=== PATIENT | female | born 1980 | race Two or more races ===

== ENCOUNTER 2023-02-09 22:14 | Observation (INO) | payer OTHER, SELFPAY ==
[2023-02-09 22:18] VITALS: BP 167/95; PULSE 79; RESP 16; TEMP 37.1; O2SAT 99; BMI 32.6
--- NOTE | 2023-02-09 23:30 | ED_ITS ---
HPI - Abdominal Pain General Chief Complaint: Abdominal Pain Stated Complaint: LOWER ABDOMINAL PAIN Time Seen by Provider: 02/09/23 23:25 Source: patient Source comment: patient Mode of arrival: walk-in Limitations: no limitations History of Present Illness HPI narrative: RLQ abd pain that started about a week ago and has slowly worsened. No radiation of pain. No activities make the pain better or worse including eating, urinating, having a BM and moving the torso. No urinary symptoms.She had BTL. Still has her GB and appendix. No history of kidney stones. Never had this pain before. Related Data Allergies Allergy/AdvReac Type Severity Reaction Status Date / Time acetaminophen [From Percocet] Allergy Intermediate Verified 02/09/23 23:37 oxycodone [From Percocet] Allergy Intermediate Verified 02/09/23 23:37 PFSH PFSH Social History Smoking status: Former smoker Exam Narrative Exam Narrative: Nurses notes and vital signs reviewed and patient is not hypoxic. afebrile General: Well-appearing and in no apparent distress. Skin: Warm, dry, no pallor noted. No rash to abdomen. Head: Normocephalic, atraumatic. Eye: Pupils are equal, round and EOMI. No scleral icterus. Cardiovascular: Regular Rate and Rhythm without murmur, gallop or rub. Respiratory: No accessory muscle use or respiratory distress. Lungs are clear to auscultation, no wheezing, rales or rhonchi Back: No CVA tenderness Musculoskeletal: normal ROM GI: Abdomen is soft, non-distended. Normal bowel sounds. No masses appre ciated. Focal tenderness to palpation. No rebound, guarding, or rigidity noted. negative Rovsing's. Neurological: A&O x4. No cranial nerve dysfunction observed. No truncal ataxia. Moves all extremities. Sensation intact. Psychiatric: Cooperative and interactive. Normal mood and affect. Constitutional Vital Signs - 24 hr 02/09/23 22:18 Temperature 98.8 F Pulse Rate [Monitor] 79 Respiratory Rate 16 Blood Pressure [Right Arm] 167/95 H Pulse Oximetry 99 Oxygen Delivery Method Room Air Course Vital Signs Vital signs: Vital Signs Temperature 98.8 F 02/09/23 22:18 Pulse Rate 79 02/09/23 22:18 Respiratory Rate 16 02/09/23 22:18 Blood Pressure 167/95 H 02/09/23 22:18 Pulse Oximetry 99 02/09/23 22:18 Oxygen Delivery Method Room Air 02/09/23 22:18 Temperature 98.8 F 02/09/23 22:18 Pulse Rate 79 02/09/23 22:18 Respiratory Rate 16 02/09/23 22:18 Blood Pressure 167/95 H 02/09/23 22:18 Pulse Oximetry 99 02/09/23 22:18 Oxygen Delivery Method Room Air 02/09/23 22:18 MDM - Abdominal Pain MDM Narrative Medical decision making narrative: Labs including urine, cbc and cmp were unremarkable. Radiologist called me about the patient abdominal and pelvic CT with concern for possible left ovarian torsion, telling me that the left ovary sits posterior and could be causing the patient's suprapubic and RLQ pain. recommended US pelvis so US tech called in from home. Result = 6cm septated left ovarian cyst with poor flow consistent with early torsion or intermittent torsion. Case discussed with Dr Cool who asked that the patient be admitted to the hospitalist service and he will be a technical sales consultant on the case. I spoke with Dr Garcia and the patient will be admitted to Dr Carmona's service. Lab Data Attestation: I reviewed the patient's lab results. Labs: Lab Results 02/09/23 02/09/23 Range/Units 00:00 00:15 WBC 7.2 (4.0-11.0) 10^3/uL RBC 4.82 (4.20-5.40) 10^6/uL Hgb 13.6 (12.0-16.0) g/dL Hct 41.3 (36.0-48.0) % MCV 85.7 (81.0-99.0) fL MCH 28.2 (26.7-34.0) pg MCHC 32.9 (29.9-35.2) g/dL RDW 13.9 (11.0-15.0) % Plt Count 272 (150-450) 10^3/uL MPV 11.6 (9.5-13.5) fL Neut % (Auto) 60.5 (43.0-75.0) % Lymph % (Auto) 29.2 (20.5-60.0) % [place] % (Auto) 8.5 (1.7-12.0) % Eos % (Auto) 1.1 (0.9-7.0) % Baso % (Auto) 0.4 (0.2-2.0) % Neut # (Auto) 4.3 (1.4-6.5) 10^3/uL Lymph # (Auto) 2.1 (1.2-3.8) 10^3/uL [place] # (Auto) 0.6 (0.3-0.8) 10^3/uL Eos # (Auto) 0.1 (0.0-0.7) 10^3/uL Baso # (Auto) 0.0 (0.0-0.1) 10^3/uL Abs Immat Gran (auto) 0.02 (0.00-0.03) 10^3/uL Imm/Tot Granulo (auto) 0.3 (0.0-0.5) % Sodium 137 (136-145) mmol/L Potassium 3.5 (3.5-5.1) mmol/L Chloride 100 (98-107) mmol/L Carbon Dioxide 27.6 (21.0-32.0) mmol/L Anion Gap 12.9 BUN 15.0 (7.0-18.0) mg/dL Creatinine 0.69 (0.55-1.02) mg/dL Est GFR ( Amer) >60 (>=60) Est GFR (Non-Af Amer) >60 (>=60) BUN/Creatinine Ratio 21.7 Glucose 95 (74-106) mg/dL Lactate 0.7 (0.4-2.0) mmol/L Calcium 9.6 (8.5-10.1) mg/dL Total Bilirubin 0.5 (0.2-1.0) mg/dL AST 15 (15-37) U/L ALT 22 (14-59) U/L Alkaline Phosphatase 57 (46-116) U/L Total Protein 8.6 H (6.4-8.2) g/dL Albumin 4.1 (3.4-5.0) g/dL Globulin 4.5 g/dL Albumin/Globulin Ratio 0.9 Lipase 289.0 (73.0-393.0) U/L Urine Color Lt. yellow (YELLOW) Urine Clarity Clear (CLEAR) Urine pH 7.0 (5.0-9.0) Ur Specific [place] 1.010 (1.005-1.025) Urine Protein Negative (NEG/TRACE) mg/dL Urine Glucose (UA) Negative (NEGATIVE) mg/dL Urine Ketones Negative (NEGATIVE) mg/dL Urine Occult Blood Negative (NEGATIVE) Urine Nitrite Negative (NEGATIVE) Urine Bilirubin Negative (NEGATIVE) Urine Urobilinogen 0.2 (0.2-1.0) EU/dL Ur Leukocyte Esterase Negative (NEGATIVE) Imaging Data ct abd/pelvis: Radiologist's impression: Patient Name: APRYL DOWNS MRN: [id number] date: 1980 Sex: F Assigned Patient Location: ER Current Patient Location: ER Accession/Order Number: [id number] Exam Date: 02/09/2023 23:48 Report Date: 02/10/2023 01:07 At the request of: DOMINGO MILLER Procedure: CT abdomen pelvis w con EXAM: CT SCAN OF THE ABDOMEN AND PELVIS WITH IV CONTRAST DATE OF EXAM: 02/09/2023 11:48 PM EDT HISTORY: right lower quadrant abd pain in a 42-year-old female COMPARISON: None. TECHNIQUE: CT examination of the abdomen and pelvis was performed following the intravenous administration of IV contrast. CT dose lowering techniques were used, to include: automated exposure control, adjustment for patient size, and/or use of iterative reconstruction. Contrast: 100 mL Omnipaque 300 FINDINGS: Single Stroke Preformer/Lines and Tubes: None Lower Chest: Normal Free Air: None. Liver: Normal Gallbladder: Normal Common Bile Duct: Normal Pancreas: Normal Spleen: Normal Adrenal Glands: Right: Normal Left: Normal Kidneys: Right Kidney: Normal. Right Ureter: Normal. Left Kidney: Normal. Left Ureter: Normal. GI Tract: Stomach: The stomach is distended with gastric contents. Small Bowel: Fluid-filled small bowel measures within normal limits Appendix: Normal on axial image 102 of series 3 Large Bowel: Normal Mesentery/Peritoneum: Normal Vasculature: Aorta: Normal. IVC: Normal. Elmer Vein: Normal. Retroperitoneum: Normal Abdominal/Pelvic Wall: Normal Bladder: Normal Reproductive: The uterus demonstrates a heterogeneous parenchyma with a fluid attenuating region which is seen posterior and superior to the uterus measuring 5.4 x 5.7 cm with some septations, most likely the left ovary. Right ovary appears to measure within normal limits allowing for volume averaging from unopacified bowel. Musculoskeletal: Osseous structures are within normal limits for age. Free Fluid: None. IMPRESSION: 1. Complicated left ovarian cyst such that acute ovarian pathology cannot be excluded. Transvaginal ultrasound with spectral Doppler to evaluate blood flow is recommended. 2. Normal appendix. 3. Fluid filled small bowel. Please correlate for viral enteritis. 4. Scattered diverticulosis. 5. Decompressed gallbladder. Please correlate with nothing by mouth status. Critical results were NOTIFIED by TELEPHONE BY Dr. Homa Lagunas MD to Dr. Miller At 02/10/2023 12:48 AM EDT. Electronically authenticated by: HOMA LAGUNAS Date: 02/10/2023 01:07 Discharge Plan Discharge Chief Complaint: Abdominal Pain Clinical Impression: Torsion of left ovary, Abdominal pain, Complex cyst of left ovary Patient Disposition: Admitted As Inpatient Time of Disposition Decision: 01:19 Referrals: Samanta Cota [Primary Care Provider] - 1 week
[2023-02-10] VITALS (12 sets, daily range): BP systolic 95–147; BP diastolic 57–99; PULSE 79–92; RESP 16–24; TEMP 36.1–36.7; O2SAT 93–99; BMI 32.5
[2023-02-10 00:06] LABS: Bilirubin Urine NEGATIVE (NEGATIVE); Blood Urine NEGATIVE (NEGATIVE); Clarity Urine CLEAR (CLEAR); Color Urine LT. YELLOW (YELLOW); Glucose Urine UA NEGATIVE (NEGATIVE); Ketones Urine NEGATIVE (NEGATIVE); Leukocyte Esterase Urine NEGATIVE (NEGATIVE); Nitrite Urine NEGATIVE (NEGATIVE); Protein Urine NEGATIVE (NEG/TRACE); Urobilinogen Urine 0.2 EU/dL (0.2-1.0)
[2023-02-10 00:08] LABS: Urine Microscopic Indicated NO
[2023-02-10] MEDS: 0.9 % SODIUM CHLORIDE 1,000 ML 999 ML IV (00:14)
[2023-02-10] MEDS: ONDANSETRON PF 4 MG/2 ML VIAL IV ×3 (00:15→05:59)
[2023-02-10] MEDS: HYDROMORPHONE HCL 1 MG/ML CARTRIDGE IVP (00:15)
--- NOTE | 2023-02-10 01:07 | US_ITS ---
[address] [address] Patient Name: APRYL DOWNS MRN: [id number] date: 1980 Sex: F Assigned Patient Location: ER Current Patient Location: .MAIN Accession/Order Number: [id number] Exam Date: 02/10/2023 01:30 Report Date: 02/10/2023 04:10 At the request of: DOMINGO MILLER Procedure: US pelvis transvaginal EXAM: US pelvis transvaginal HISTORY: ovarian torsion seen on CT, lower abdominal pain COMPARISON: CT abdomen/pelvis dated 02/09/2023. TECHNIQUE: Grayscale and color Doppler transvaginal sonographic imaging of the pelvis performed in longitudinal and transverse planes. FINDINGS: Uterus: 9.0 x 6.7 x 5.0 cm Right ovary: 3.0 x 2.3 x 1.8 cm Left ovary: 6.0 x 4.6 x 3.1 cm Uterus: The uterus is normal size and position. The endometrial stripe is normal thickness measuring 1 cm in AP dimension. There is a 0.8 cm nabothian cyst. The myometrial parenchymal echogenicity is normal. Right ovary: Normal size with normal parenchymal echogenicity. There is no right ovarian mass. The color and the spectral Doppler analysis of the right ovary are normal. There is no evidence of right ovarian torsion. The right adnexal region is unremarkable. Left ovary: The left ovary is asymmetrically larger than the right containing a 5.8 x 2.8 x 4.3 cm complex cyst containing septations and peripheral echogenicity. The surrounding left ovarian parenchymal echogenicity is normal. The color and the spectral Doppler analysis of the left ovary are normal. There is no evidence of left ovarian torsion. The left adnexa region is unremarkable. Cul-de-sac: There is no free fluid within the cul-de-sac. IMPRESSION: There is no ovarian torsion. There is a 5.8 x 2.8 x 4.3 cm complex left ovarian cyst containing septations and peripheral echogenicity. A follow-up pelvic ultrasound examination in 6-8 weeks is recommended to confirm complete resolution. Electronically authenticated by: NIURAK WEBB Date: 02/10/2023 04:10
[2023-02-10 01:08] LABS: Alanine Aminotransferase 22 U/L (14-59); Albumin Globulin Ratio 0.9; Albumin Level 4.1 g/dL (3.4-5.0); Alkaline Phosphatase 57 U/L (46-116); Anion Gap 12.9; Aspartate Amino Transferase 15 U/L (15-37); BUN Creatinine Ratio 21.7; Bilirubin Total 0.5 mg/dL (0.2-1.0); Calcium 9.6 mg/dL (8.5-10.1); Carbon Dioxide 27.6 mmol/L (21.0-32.0); Chloride 100 mmol/L (98-107); Estimated GFR (African America >60 (>=60); Estimated GFR (Non-African Ame >60 (>=60); Globulin 4.5 g/dL; Glucose 95 mg/dL (74-106); Potassium 3.5 mmol/L (3.5-5.1); Sodium 137 mmol/L (136-145); Total Protein 8.6 g/dL (6.4-8.2)
[2023-02-10 01:12] LABS: Lactate/Lactic Acid 0.7 mmol/L (0.4-2.0)
[2023-02-10 01:42] LABS: Basophils Percent Auto 0.4 % (0.2-2.0); Eosinophils Absolute Auto 0.1 10^3/uL (0.0-0.7); Eosinophils Percent Auto 1.1 % (0.9-7.0); Hematocrit 41.3 % (36.0-48.0); Hemoglobin 13.6 g/dL (12.0-16.0); Immature Granulocytes Abs Auto 0.02 10^3/uL (0.00-0.03); Immature Granulocytes Pct Auto 0.3 % (0.0-0.5); Lymphocytes Absolute Auto 2.1 10^3/uL (1.2-3.8); Lymphocytes Percent Auto 29.2 % (20.5-60.0); Mean Corpuscular HGB Conc 32.9 g/dL (29.9-35.2); Mean Corpuscular Hemoglobin 28.2 pg (26.7-34.0); Mean Corpuscular Volume 85.7 fL (81.0-99.0); Mean Platelet Volume 11.6 fL (9.5-13.5); Monocytes Absolute Auto 0.6 10^3/uL (0.3-0.8); Monocytes Percent Auto 8.5 % (1.7-12.0); Neutrophils Absolute Auto 4.3 10^3/uL (1.4-6.5); Neutrophils Percent Auto 60.5 % (43.0-75.0); Platelet Count 272 10^3/uL (150-450); Red Blood Count 4.82 10^6/uL (4.20-5.40); Red Cell Distribution Width 13.9 % (11.0-15.0); White Blood Count 7.2 10^3/uL (4.0-11.0)
[2023-02-10] MEDS: MEPERIDINE HCL/PF 50 MG/ML VIAL IV (02:02)
[2023-02-10 03:47] LABS: INR 0.96; Prothrombin Time 10.2 sec (9.0-11.6)
--- NOTE | 2023-02-10 05:20 | W.PM.TELEPN ---
Progress Note: Subjective Subjective Interval history: pt is a 42F with h/o HTN, DM II, and hypothyroid presenting with c/o abd pain. reports sudden onset of RIGHT lower quadrant pain yesterday with pressure sensation. She has had mild sx for one week, but more exacerbated over past 24hrs. No change with food. Reporets nausea and diarrhea intermittently for one week. Had approx 5 bouts of diarrhea yest, nonbloody. In ED, virtals with bp 167/95 o/w afebrile. abs bengign incl normal wbc count and neg UA. CT abd 6cm left ovarian cyst concern for poss ovarian torsion. ED d/w radiologist who rec TV US, noted for 6cm LEFT ovarian cyst with poor flow c/w early torsion or intermittent torsion. ED d/w Sanitary Landfill Operator Dr Cool who req admit to hospitlt service for pain control with plan to likely take to OR in am. Exam Narrative Exam Narrative: gen aox 3 nad cvs s1s2 rrr lungs ctab no wheezes abd sodt ttp blq r>l, with guarding extr no cce neuro aox4, sensation intact from Constitutional Vital Signs - 24 hr 02/09/23 22:18 02/10/23 03:46 02/10/23 04:14 Temperature 98.8 F 98.0 F Pulse Rate 79 84 Pulse Rate [Monitor] 79 Respiratory Rate 16 16 16 Blood Pressure 147/99 H Blood Pressure [Right Arm] 167/95 H 127/82 H Pulse Oximetry 99 98 99 Oxygen Delivery Method Room Air Room Air 02/10/23 04:14 02/10/23 04:29 Temperature 98 F Pulse Rate 84 Pulse Rate [Monitor] Respiratory Rate 16 Blood Pressure Blood Pressure [Right Arm] 127/82 H Pulse Oximetry 99 Oxygen Delivery Method Room Air Room Air Progress Note: Objective Labs Labs: Short CBC 02/09/23 Range/Units 00:15 WBC 7.2 (4.0-11.0) 10^3/uL Hgb 13.6 (12.0-16.0) g/dL Hct 41.3 (36.0-48.0) % Plt Count 272 (150-450) 10^3/uL BMP 02/09/23 00:15 Sodium 137 Potassium 3.5 Chloride 100 Carbon Dioxide 27.6 BUN 15.0 Creatinine 0.69 Glucose 95 Calcium 9.6 Liver Function 02/09/23 Range/Units 00:15 Total Bilirubin 0.5 (0.2-1.0) mg/dL AST 15 (15-37) U/L ALT 22 (14-59) U/L Alkaline Phosphatase 57 (46-116) U/L Albumin 4.1 (3.4-5.0) g/dL Urine 02/09/23 Range/Units 00:00 Urine Color Lt. yellow (YELLOW) Urine Clarity Clear (CLEAR) Urine pH 7.0 (5.0-9.0) Ur Specific [place] 1.010 (1.005-1.025) Urine Protein Negative (NEG/TRACE) mg/dL Urine Glucose (UA) Negative (NEGATIVE) mg/dL Progress Note: A&P Assessment and Plan (1) Torsion of left ovary: (2) Abdominal pain: (3) Complex cyst of left ovary: (4) Diabetes: (5) HTN (hypertension): Plan abd pain ,suspect ovarian torsion diarrhea htn hypothytoid dm ii plan: admit m/s npo, ivf inr chk preop prn michael, dilaudid meeting facilitator c/s dr cool, plans to take to OR in am hold bp meds for now. resume postop ssi dvt p/x scd fu;l code Telemedicine Attestation Telemedicine Attestation I conducted this encounter from [MD] via secure live, [id number] video conference with the patient, CHARGE TEST-CHARGES located at [facility] with [beth]. Prior to the interview, the risks and benefits of telemedicine were discussed with the patient and verbal consent was obtained.
[2023-02-10] MEDS: HYDROMORPHONE HCL 0.5 MG/0.5 ML SYRINGE IV (05:58)
[2023-02-10] MEDS: 0.9 % SODIUM CHLORIDE 1,000 ML 100 ML IV (06:01)
[2023-02-10 07:12] LABS: Glucometer 90 mg/dL (74-106)
[2023-02-10] MEDS: LACTATED RINGER'S SOLUTION 1,000 ML 100 ML IV (07:37)
[2023-02-10 07:40] LABS: HCG Quantitative <1 mIU/mL
[2023-02-10] MEDS: SCOPOLAMINE 1 EACH PATCH.TD.3 1 PATCH TD (08:05)
--- NOTE | 2023-02-10 09:44 | PC.NURSE ---
LOPEZ DISCONTINUED AT ENDO OF CASE, 50ML CLEAR YELLOW URINE NOTED
--- NOTE | 2023-02-10 10:22 | PC.NURSE ---
peripad dry; 3 dressings to abdomen intact with scant drainage on mid and left dressings; right dressing dry; areas marked
--- NOTE | 2023-02-10 10:31 | PC.NURSE ---
rating left abdominal pain a 6 on pain scale; no facial grimacing noted; pt instructed that no IV pain meds will not be administered at this time due to low blood pressure; this discussed with anesthesia and no further orders; no increase in drainage from initial assessment peripad dry; pt. returns to sleep
[2023-02-10] MEDS: LEVOTHYROXINE SODIUM 75 MCG TABLET 37.5 MCG PO (10:55)
[2023-02-10] MEDS: LEVOTHYROXINE SODIUM 100 MCG TABLET PO (10:55)
[2023-02-10] MEDS: HYDROCODONE/ACETAMINOPHEN 5-325 MG TABLET 1 TAB PO (10:55)
[2023-02-10] MEDS: LIDOCAINE HCL IM (10:56)
[2023-02-10] MEDS: CEFTRIAXONE 250 MG IM (10:56)
--- NOTE | 2023-02-10 11:00 | PC.NURSE ---
no change in assessment of wound drainage from initially; peripad dry
--- NOTE | 2023-02-10 11:06 | PC.NURSE ---
no change in incisional drainage from initial assessment; peripad dry
[2023-02-10 11:09] LABS: Glucometer 115 mg/dL (74-106)
--- NOTE | 2023-02-10 11:10 | PC.NURSE ---
peripad dry; no change in assessment of incisional sites
--- NOTE | 2023-02-10 11:24 | PC.NURSE ---
Left ovarian cyst fluid for cytology sent to lab
--- NOTE | 2023-02-10 12:51 | CM.NOTE ---
Rounds made with Dr. Carmona, possible discharge later today. No discharge needs identified.
--- NOTE | 2023-02-10 15:43 | PM.HP ---
H&P: HPI History of Present Illness Chief complaint: LOWER ABDOMINAL PAIN Narrative: HPI and hospital course: 42 y o female presents with intermittent lower abdominal pain that was going on for about one week, but had gotten worse, severe and more or less persistent for past 1-2 days with associated nausea, vomiting. No relationship to food, change in bowel habits or any urinary complaints. She was evaluated in ED and her w/u was c/w ovarian torsion for which she was taken to OR earlier morning and was seen by me after diagnostic laparoscopy and cystectomy. Mild post op pain. Tolerating oral diet. Stable for discharge. F/u with PCP and OBGYN as outpatient. Educated on signs and symptoms that should prompt ED visit and evaluation. Admission Diagnosis Ovarian torsion HTN Hypothyroidism T2 DM Discharge Diagnosis as above Discharge status: stable Review of Systems ROS Status of ROS 10 or more systems reviewed and unremarkable except as noted in history and below [facility] Medical History (Updated 02/10/23 @ 18:30 by Shaikh Mathew MD) Family History (Updated 02/10/23 @ 04:43 by Jazmine Doyle) Mother Family history of COPD (chronic obstructive pulmonary disease) Family history of diabetes mellitus Family history of hypertension Sister Family history of cancer Family history of diabetes mellitus Father Family history of cancer Social History (Updated 02/10/23 @ 04:44 by Jazmine Doyle) Within the past year, how often did you have a drink containing alcohol: never Within the past year, how often did you have six or more drinks on one occasion: never Score interpretation: A score less than 3 is consistent with normal alcohol consumption. 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 Known occupational exposures/hazards: No Highest level of school completed/degree received: GED or equivalent Do you want help with school or training: No Are you now , , , , never or living with a partner: In a typical week, how many times do you talk on the telephone with family, friends, or neighbors: 3 or more times per week How often do you get together with friends or relatives: 3 or more times per week How often do you attend christian or latter day services: never Do you belong to any clubs or organizations such as christian groups unions, fraternal or athletic groups, or school groups: no Total score: 1 Score interpretation: A score of less than or equal to 1 indicates the most socially isolated. Little interest or pleasure in doing things: not at all Feeling down, depressed, or hopeless: not at all Feel stressed/tense/nervous/anxious/difficulty sleeping: not at all Due to disability, difficulty making decisions: No Do you think of yourself as: straight/heterosexual Gender Identity: female Meds Home Medications and Allergies Home Medications Medication Instructions Recorded Confirmed Type amitriptyline 50 mg tablet 50 mg PO .QHS 02/10/23 02/10/23 History levothyroxine 137 mcg tablet 137 mcg PO .aday 02/10/23 02/10/23 History lisinopril 20 mg tablet 20 mg PO QDAY 02/10/23 02/10/23 History metformin 500 mg tablet 750 mg PO QDAY 02/10/23 02/10/23 History tirzepatide 2.5 mg/0.5 mL 7.5 mg subcut QWEEK 02/10/23 02/10/23 History subcutaneous pen injector (Emmanuel) Allergies Allergy/AdvReac Type Severity Reaction Status Date / Time acetaminophen [From Percocet] Allergy Intermediate Verified 02/09/23 23:37 oxycodone [From Percocet] Allergy Intermediate Verified 02/09/23 23:37 Exam Constitutional Vital Signs - 24 hr 02/09/23 22:18 02/10/23 03:46 02/10/23 04:14 Temperature 98.8 F 98.0 F Pulse Rate 79 84 Pulse Rate [Monitor] 79 Respiratory Rate 16 16 16 Blood Pressure 147/99 H Blood Pressure [Right Arm] 167/95 H 127/82 H Pulse Oximetry 99 98 99 Oxygen Delivery Method Room Air Room Air Fraction of Inspired Oxygen 02/10/23 04:14 02/10/23 04:29 02/10/23 10:01 Temperature 98 F 96.9 F L Pulse Rate 84 87 Pulse Rate [Monitor] Respiratory Rate 16 16 Blood Pressure 110/73 Blood Pressure [Right Arm] 127/82 H Pulse Oximetry 99 94 L Oxygen Delivery Method Room Air Room Air Room Air Fraction of Inspired Oxygen 02/10/23 10:06 02/10/23 10:11 02/10/23 10:16 Temperature Pulse Rate 83 85 81 Pulse Rate [Monitor] Respiratory Rate 18 24 22 Blood Pressure 117/65 95/57 L 101/59 L Blood Pressure [Right Arm] Pulse Oximetry 94 L 93 L 96 Oxygen Delivery Method Room Air Fraction of Inspired Oxygen 02/10/23 10:21 02/10/23 10:31 02/10/23 10:40 Temperature Pulse Rate 81 80 84 Pulse Rate [Monitor] Respiratory Rate 18 18 20 Blood Pressure 97/79 100/75 108/60 Blood Pressure [Right Arm] Pulse Oximetry 95 95 96 Oxygen Delivery Method Room Air Room Air Room Air Fraction of Inspired Oxygen 02/10/23 11:03 02/10/23 11:22 02/10/23 14:14 Temperature 98.0 F 97.3 F L Pulse Rate 84 92 H Pulse Rate [Monitor] Respiratory Rate 16 16 Blood Pressure Blood Pressure [Right Arm] 112/73 127/80 H Pulse Oximetry 95 95 Oxygen Delivery Method Room Air Room Air Room Air Fraction of Inspired Oxygen 95 Common normals: no apparent distress and well nourished Exam limitations: altered mental status General appearance: cooperative and comfortable Eye Common normals: conjunctivae normal and no scleral icterus Respiratory Common normals: normal respiratory effort, no use of accessory muscles and clear to auscultation bilaterally Cardio Common normals: no JVD, regular rhythm, S1 normal heart sound and S2 normal heart sound GI Common normals: no hepatosplenomegaly Palpation: soft and tender (mild lower abdominal tenderness) Extremity Common normals: normal to inspection and full ROM Neuro Common normals: oriented x3, CN's II-XII intact bilaterally, moves all extremities, no focal motor deficits and no sensory deficits noted Results Labs Labs: Short CBC 02/09/23 Range/Units 00:15 WBC 7.2 (4.0-11.0) 10^3/uL Hgb 13.6 (12.0-16.0) g/dL Hct 41.3 (36.0-48.0) % Plt Count 272 (150-450) 10^3/uL BMP 02/09/23 00:15 Sodium 137 Potassium 3.5 Chloride 100 Carbon Dioxide 27.6 BUN 15.0 Creatinine 0.69 Glucose 95 Calcium 9.6 Liver Function 02/09/23 Range/Units 00:15 Total Bilirubin 0.5 (0.2-1.0) mg/dL AST 15 (15-37) U/L ALT 22 (14-59) U/L Alkaline Phosphatase 57 (46-116) U/L Albumin 4.1 (3.4-5.0) g/dL Urine 02/09/23 Range/Units 00:00 Urine Color Lt. yellow (YELLOW) Urine Clarity Clear (CLEAR) Urine pH 7.0 (5.0-9.0) Ur Specific Orestes 1.010 (1.005-1.025) Urine Protein Negative (NEG/TRACE) mg/dL Urine Glucose (UA) Negative (NEGATIVE) mg/dL Assessment and Plan Assessment and Plan (1) Torsion of left ovary: Assessment and Plan: s/p cystectomy. OR report is not available at this time for me to review what was actually performed. Tolerating oral diet. Stable for d/c. Outpatient f/u with PCP and OBGYN (2) Abdominal pain: Assessment and Plan: from ovarian torsion. s/p cystectomy. Mild post op pain but tolerating diet. Stable for d/c Qualifiers: Abdominal location: lower abdomen, unspecified Qualified Code(s): R10.30 - Lower abdominal pain, unspecified (3) Complex cyst of left ovary: Assessment and Plan: Resulting in torsion. Pathology sent and pending. F/u with OBGYN (4) Diabetes: Assessment and Plan: C/w home meds. On mounjaro and metformin Qualifiers: Diabetes mellitus type: type 2 Diabetes mellitus termination clerk insulin use: without correction use Diabetes mellitus complication status: without complication Qualified Code(s): E11.9 - Type 2 diabetes mellitus without complications (5) HTN (hypertension): Assessment and Plan: Resume home meds as before. Outpaitent f/u (6) Hypothyroidism: Assessment and Plan: c/w levothyorxine
--- NOTE | 2023-02-14 10:07 | CM.DCFOLLOWU ---
Person spoke with:patient How are you feeling? concerns with stitches How is your pain? possible discomfort, but connection via phone was hard to understand patient Did you understand your discharge instructions? yes Do you have any questions about your discharge instructions? no Were you given any prescriptions at discharge? no Were you able to get your prescriptions filled? Do you understand how to take your medications as ordered? yes Do you have any questions about your follow up appointment and do you plan to keep your follow up appointment? No questions, follow up apt scheduled on February [address] Cool Is there anything else that you would like to discuss? Attempted to talk with pt about her pain and concern for stitches coming out, but there was a bad connection. Advised to call Dr. Cool's office, or if concerned come to the ER. Questions/Comments/Concerns/Other:
--- NOTE | 2023-03-24 | DS_ITS ---
DISCHARGE DATE: ??03/24/2023 PRIMARY DIAGNOSES: 1.? Pelvic pain. 2.? Ovarian cyst. PROCEDURE:? Diagnostic laparoscopy with left ovarian cystotomy. HOSPITAL COURSE:? As expected.? Please see chart for full details.? LABORATORY DATA:? Please see chart. COMPLICATIONS:? None. DISCHARGE CONDITION:? Stable. CONSULTATION:? Anesthesia. DISCHARGE INSTRUCTIONS: 1.? Diet:? Regular. 2.? Medications: a.? Percocet 5/325 one to two p.o. every 4-6 hours p.r.n. pain. b.? Motrin 800 one p.o. every 8 hours p.r.n. pain. 3.? Followup in one week. Restrictions:? Pelvic rest for 6 weeks.? No heavy lifting.? May drive when pain free and no longer on narcotics. [facility]
--- NOTE | 2023-03-25 07:52 | P.ON_ITS ---
Brief Operative Note Date of procedure: 02/10/23 Pre-op diagnosis: pelvic pain, ovarian cyst Procedure: NAME OF PROCEDURE: [diagnostic laparoscopy with lt ovarian cystotomy ] PROCEDURE: The patient was taken back to the Operating Room where she was placed in dorsal lithotomy position after given general anesthesia. The patient was prepped and draped in normal sterile fashion. A sponge stick was placed into the patient's vagina. Attention was turned to the patient's abdomen, where a small umbilical incision was made. The fascia was tented using Barb clamps and the fascia was entered sharply. Confirmation of intraabdominal placement of the 10 mm port was confirmed under direct visualization using a laparoscope. The patient's abdomen was then insufflated using CO2 gas with approximately 4 liters. A second port was placed left laterally, this was done under direct visualization with a 5 mm port. Survey of the patient's abdomen demonstrated normal liver and gallbladder. Survey of the patient's pelvic anatomy demonstrated normal appearing rt ovary a nd tubes as well as normal appearing uterus. large lt ovarian cyst No endometrial implants could be noted, no evidence of any pelvic disease was seen, normal appearing pelvic cavity. All instruments were removed from the patient's abdomen. Lt ovarian cystotomy performed using monopolar scissors. The patient's abdomen was deinsufflated of CO2 gas. The patient tolerated the procedure well. Sponge stick was removed from the patient's vagina. The patient's infraumbilical fascia was closed using #0 Vicryl on a GI needle. The patient's skin was closed laterally and infraumbilically using 4-0 Vicryl. The patient tolerated the procedure well. Sponge, lap and needle counts were correct x 2. The patient was taken to Recovery Room in stable condition.Clips from prior surgery noted adhered to bladder, the clips were grasped and gently removed Anesthesia: HOWARD Surgeon: Matt Cool Passenger Locomotive Engineer: Rosario Santana Estimated blood loss (mL): 10 Pathology: none sent Condition: stable Disposition: floor
== END 2023-02-10 16:13 | disposition home or self-care (01) ==
LOC: ER 02-10 03:20 → MS 02-10 06:44
PROVIDERS: Internal Medicine; Obstetrics & Gynecology; Admitting Provider Internal Medicine; Emergency Provider Emergency Medicine; PCP Nurse Practitioner; Visit Provider Internal Medicine
PROC: (CPT 840; principal; 2023-02-10 08:20)
DX: R10.2 Pelvic and perineal pain (principal); N83.512 Torsion of left ovary and ovarian pedicle; I10 Essential (primary) hypertension; E03.9 Hypothyroidism, unspecified; E11.9 Type 2 diabetes mellitus without complications; Z87.891 Personal history of nicotine dependence; Z79.890 Hormone replacement therapy; Z79.84 Long term (current) use of oral hypoglycemic drugs; Z79.899 Other long term (current) drug therapy
CPT/HCPCS: 58662; 36415; 74177; 76830; 80053; 81003; 83605; 83690; 84702; 84703; 85025; 85610; 88112; 93975; 94761; 96376; 99285; G0378; J1170; J2704; Q3014; Q9967

== ENCOUNTER 2023-02-12 22:04 | Emergency (ER) | payer OTHER, SELFPAY ==
[2023-02-12 22:31] VITALS: BP 137/88; PULSE 76; RESP 16; TEMP 37; O2SAT 100; BMI 32.6
--- NOTE | 2023-02-12 22:41 | ED.ALLEREA1 ---
HPI - Allergic Reaction General Chief complaint: Skin/Abscess/Foreign Body Stated complaint: SUGERY COMPLICATION Time Seen by Provider: 02/12/23 22:37 Source: patient Mode of arrival: walk-in Limitations: no limitations History of Present Illness HPI narrative: surgery 3 days ago to remove her ovary. Now returns because the incision site is itching. she removed the tape from the surgical site and she has focal area dermatitis in line with tape. No erythema. Has raised patches of small 2mm vesicular lesions. sl erythema. No warmth or tenderness MD complaint: Reports allergic reaction Related Data Home Medications Medication Instructions Recorded Confirmed amitriptyline 50 mg tablet 50 mg PO .QHS 02/10/23 02/10/23 levothyroxine 137 mcg tablet 137 mcg PO .aday 02/10/23 02/10/23 lisinopril 20 mg tablet 20 mg PO QDAY 02/10/23 02/10/23 metformin 500 mg tablet 750 mg PO QDAY 02/10/23 02/10/23 tirzepatide 2.5 mg/0.5 mL 7.5 mg subcut QWEEK 02/10/23 02/10/23 subcutaneous pen injector (Mounjaro) Allergies Allergy/AdvReac Type Severity Reaction Status Date / Time oxycodone [From Percocet] Allergy Intermediate Verified 02/12/23 22:42 Review of Systems ROS Status of ROS 10 or more systems reviewed and unremarkable except as noted in history and below [facility] Medical History (Updated 02/12/23 @ 22:49 by Chandler Bain MD) Family History (Updated 02/10/23 @ 04:43 by Jazmine Doyle) Mother Family history of COPD (chronic obstructive pulmonary disease) Family history of diabetes mellitus Family history of hypertension Sister Family history of cancer Family history of diabetes mellitus Father Family history of cancer Social History (Updated 02/10/23 @ 04:44 by Jazmine Doyle) Within the past year, how often did you have a drink containing alcohol: never Within the past year, how often did you have six or more drinks on one occasion: never Score interpretation: A score less than 3 is consistent with normal alcohol consumption. 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 Known occupational exposures/hazards: No Highest level of school completed/degree received: GED or equivalent Do you want help with school or training: No Are you now , , , , never or living with a partner: In a typical week, how many times do you talk on the telephone with family, friends, or neighbors: 3 or more times per week How often do you get together with friends or relatives: 3 or more times per week How often do you attend nondenominational or methodist services: never Do you belong to any clubs or organizations such as nondenominational groups unions, fraternal or athletic groups, or school groups: no Total score: 1 Score interpretation: A score of less than or equal to 1 indicates the most socially isolated. Little interest or pleasure in doing things: not at all Feeling down, depressed, or hopeless: not at all Feel stressed/tense/nervous/anxious/difficulty sleeping: not at all Due to disability, difficulty making decisions: No Do you think of yourself as: straight/heterosexual Gender Identity: female Exam Constitutional Vital Signs - 24 hr 02/12/23 22:31 Temperature 98.6 F Pulse Rate [Monitor] 76 Respiratory Rate 16 Blood Pressure [Left Arm] 137/88 H Pulse Oximetry 100 Oxygen Delivery Method Room Air Common normals: no apparent distress, oriented x3, healthy appearing and alert HENID Common normals: normocephalic and head/scalp atraumatic Eye Common normals: PERRL, EOMs intact bilaterally and conjunctivae normal Respiratory Common normals: normal respiratory effort, no retractions, no use of accessory muscles and clear to auscultation bilaterally Cardio Common normals: no JVD, regular rate, regular rhythm, S1 normal heart sound and S2 normal heart sound GI Other: patches of small 2mm vesicular lesions at her incision area where there was once tape. Nontender. No drainage Extremity Common normals: normal to inspection, full ROM, no joint enlargement and no clubbing, cyanosis or edema Neuro [place] Coma Scale: document GCS findings Common normals: oriented x3 and CN's II-XII intact bilaterally Psych Appearance: grossly normal Course Vital Signs Vital signs: Vital Signs Temperature 98.6 F 02/12/23 22:31 Pulse Rate 76 02/12/23 22:31 Respiratory Rate 16 02/12/23 22:31 Blood Pressure 137/88 H 02/12/23 22:31 Pulse Oximetry 100 02/12/23 22:31 Oxygen Delivery Method Room Air 02/12/23 22:31 Temperature 98.6 F 02/12/23 22:31 Pulse Rate 76 02/12/23 22:31 Respiratory Rate 16 02/12/23 22:31 Blood Pressure 137/88 H 02/12/23 22:31 Pulse Oximetry 100 02/12/23 22:31 Oxygen Delivery Method Room Air 02/12/23 22:31 MDM - Allergic Reaction MDM Narrative Medical decision making narrative: patient s/p surgery 3 days ago. She describes removal of her ovary. Surgery went well and she had returned to work. She now presents because of itching at the surgical site. She removed the tape and noticed a rash at the site. Rash is patches of snall vesicular lesions . Site is nontender. Patient informed of the working diagnosis of contact dermatitis. she is diabetic. Prescribed Medrol dose pack and triamcinolone cream. She is to follow up with her doctor next week Discharge Plan Discharge Chief Complaint: Skin/Abscess/Foreign Body Clinical Impression: Contact dermatitis Patient Disposition: Home, Self-Care Prescriptions / Home Meds: No Action amitriptyline 50 mg tablet 50 mg PO .QHS levothyroxine 137 mcg tablet 137 mcg PO .aday lisinopril 20 mg tablet 20 mg PO QDAY metformin 500 mg tablet 750 mg PO QDAY Mounjaro 2.5 mg/0.5 mL pen injector 7.5 mg SUBCUT QWEEK Instructions: Contact Dermatitis (ED) Stand Alone Forms: Portal Instructions Referrals: Samanta Cota [Primary Care Provider] - 1 week Follow Up Appointments: follow up with your doctor early next week. Return is rash worsens
--- NOTE | 2023-02-12 22:43 | PC.NURSE ---
pt presents to ED because patient states she had her ovary removed by dr. ruvalcaba on 02/09/2023. pt states they placed bandages on the 3 incision site. 1 in the umbilical area and 2 laparoscopic sites on left and right sides of lower abdomen. pt states no one told her when to remove bandages but today the bandage was soaked through with fluid that with a small off amount of blood. incision site and surrounding skin that had bandage surrounding site is red and blistered. clear fluid draining from skin at this time.
[2023-02-12] MEDS: PREDNISONE 20 MG TABLET 40 MG PO (22:57)
== END 2023-02-12 23:06 | disposition home or self-care (01) ==
PROVIDERS: Emergency Provider Internal Medicine; PCP Nurse Practitioner
DX: L25.9 Unspecified contact dermatitis, unspecified cause (principal); Z90.721 Acquired absence of ovaries, unilateral; Z79.899 Other long term (current) drug therapy; Z79.84 Long term (current) use of oral hypoglycemic drugs; Z79.890 Hormone replacement therapy; Z87.891 Personal history of nicotine dependence
CPT/HCPCS: 99283

== ENCOUNTER 2023-02-14 22:39 | Emergency (ER) | payer OTHER, SELFPAY ==
--- NOTE | 2023-02-14 00:20 | CT_ITS ---
The [address] [address] Patient Name: APRYL DOWNS MRN: [id number] date: 1980 Sex: F Assigned Patient Location: ER Current Patient Location: ER Accession/Order Number: [id number] Exam Date: 02/14/2023 00:20 Report Date: 02/15/2023 01:07 At the request of: MICHELE HANNON Procedure: CT abdomen pelvis w con EXAM: CT abdomen pelvis w con HISTORY: abd pain after surgery ( abd wall infection ) COMPARISON: CT abdomen and pelvis examination dated 02/09/2023. TECHNIQUE: Axial CT images through the abdomen and pelvis were obtained after the intravenous administration of 100 mL Omnipaque 300 contrast. Coronal and sagittal reformats were obtained. Dose reduction techniques were achieved by using automated exposure control and/or adjustment of mA and/or kV according to patient size and/or use of iterative reconstruction technique. FINDINGS: There is bibasilar atelectasis. Abdomen: The liver and spleen enhance homogeneously without focal lesion. There is no intra or extrahepatic biliary duct dilatation. The gallbladder is unremarkable. There are scattered colonic diverticula without evidence of acute inflammation. Otherwise, the pancreas, adrenal glands, kidneys, and bowel loops, including the appendix, are unremarkable. There is no mesenteric or retroperitoneal lymphadenopathy. There is edema within the ventral abdominal and pelvic subcutaneous tissues. There is a small focus of air within the lower left ventral abdominal subcutaneous tissues. Pelvis: The bladder and rectum are unremarkable. There is no iliac or inguinal lymphadenopathy. The uterus is present. The ovaries appear within normal limits by CT. Bone windows show no aggressive osseous lesions. IMPRESSION: 1. Edema within the ventral abdominal pelvic subcutaneous tissues which could related to the patient's recent surgery or could represent cellulitis. No evidence of an abscess is seen. A small focus of air in the left lower ventral abdominal subcutaneous tissues is likely related to the patient's recent surgery. 2. Scattered colonic diverticula without evidence of acute inflammation. 3. Normal appendix. Electronically authenticated by: James PADRON Date: 02/15/2023 01:07
[2023-02-14 22:45] VITALS: BP 152/91; PULSE 74; RESP 16; TEMP 36.8; O2SAT 100; BMI 32.6
--- NOTE | 2023-02-14 23:07 | ED_ITS ---
HPI - General Adult General Chief complaint: Skin/Abscess/Foreign Body Stated complaint: POST SURGICAL INCISION LEAKAGE Time Seen by Provider: 02/14/23 23:06 Source: patient Mode of arrival: walk-in Limitations: no limitations History of Present Illness HPI narrative: patient had ovarian torsion surgery list in five days ago presented to us with irritation at the site of the surgery, laparoscopic surgery was done at that time and the patient is complaining of irritation at the site of the wound, patient also complaining of chills nausea no vomiting and abdominal bess tenderness Also note that this bruise and ecchymosis at the mid abdomen that was not there initially Related Data Home Medications Medication Instructions Recorded Confirmed amitriptyline 50 mg tablet 50 mg PO .QHS 02/10/23 02/10/23 levothyroxine 137 mcg tablet 137 mcg PO .aday 02/10/23 02/10/23 lisinopril 20 mg tablet 20 mg PO QDAY 02/10/23 02/10/23 metformin 500 mg tablet 750 mg PO QDAY 02/10/23 02/10/23 tirzepatide 2.5 mg/0.5 mL 7.5 mg subcut QWEEK 02/10/23 02/10/23 subcutaneous pen injector (Emmanuel) Previous Rx's Medication Instructions Recorded amoxicillin 875 mg-potassium 1 tab PO BID #20 tabs 02/15/23 clavulanate 125 mg tablet hydrocortisone 1 % topical cream 1 applic topical BID PRN allergic 02/15/23 reaction #28.4 grams Allergies Allergy/AdvReac Type Severity Reaction Status Date / Time oxycodone [From Percocet] Allergy Intermediate Verified 02/12/23 22:42 Review of Systems ROS Status of ROS 10 or more systems reviewed and unremarkable except as noted in history and below [facility] Medical History (Updated 02/15/23 @ 02:40 by Priya Sumner MD) Family History (Updated 02/10/23 @ 04:43 by Jazmine Doyle) Mother Family history of COPD (chronic obstructive pulmonary disease) Family history of diabetes mellitus Family history of hypertension Sister Family history of cancer Family history of diabetes mellitus Father Family history of cancer Social History (Updated 02/10/23 @ 04:44 by Jazmine Doyle) Within the past year, how often did you have a drink containing alcohol: never Within the past year, how often did you have six or more drinks on one occasion: never Score interpretation: A score less than 3 is consistent with normal alcohol consumption. 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 Known occupational exposures/hazards: No Highest level of school completed/degree received: GED or equivalent Do you want help with school or training: No Are you now , , , , never or living with a partner: In a typical week, how many times do you talk on the telephone with family, friends, or neighbors: 3 or more times per week How often do you get together with friends or relatives: 3 or more times per week How often do you attend episcopalian or pentecostal services: never Do you belong to any clubs or organizations such as episcopalian groups unions, fraternal or athletic groups, or school groups: no Total score: 1 Score interpretation: A score of less than or equal to 1 indicates the most socially isolated. Little interest or pleasure in doing things: not at all Feeling down, depressed, or hopeless: not at all Feel stressed/tense/nervous/anxious/difficulty sleeping: not at all Due to disability, difficulty making decisions: No Do you think of yourself as: straight/heterosexual Gender Identity: female Exam Narrative Exam Narrative: Nurses notes and vital signs reviewed and patient is not hypoxic. General: Well-appearing and in no apparent distress. Skin: Warm, dry, no pallor noted. No rash. Head: Normocephalic, atraumatic. Neck: Supple, non-tender. Eye: Pupils are equal, round and EOMI. No scleral icterus. Ears, Nose, Mouth, and Throat: TM are clear, no nasal mucosal hypertrophy. Oral mucosa is moist, no posterior oropharynx erythema, uvula is mid-line Cardiovascular: Regular Rate and Rhythm without murmur, gallop or rub. Respiratory: No accessory muscle use or respiratory distress. Lungs are clear to auscultation, no wheezing, rales or rhonchi Chest Wall: no tenderness Back: No midline thoracic or lumbar vertebral tenderness. No CVA tenderness Musculoskeletal: normal ROM, no calf or popliteal tenderness, no lower extremity edema/swelling GI: abdominal examination shows three laparoscopic wound are surrounded by skin erythema and contact dermatitis-like lesions of papular rash,,there is induration of the skin and redness surrounding those areas Abdomen is soft, non-distended. Normal bowel sounds. No masses appreciated. No tenderness to palpation. No rebound, guarding, or rigidity noted. Neurological: A&O x4. No cranial nerve dysfunction observed. No truncal ataxia. Moves all extremities. Sensation intact. Psychiatric: Cooperative and interactive. Normal mood and affect. Constitutional Vital Signs - 24 hr 02/14/23 22:45 Temperature 98.2 F Pulse Rate [Monitor] 74 Respiratory Rate 16 Blood Pressure [Right Arm] 152/91 H Pulse Oximetry 100 Oxygen Delivery Method Room Air Course Vital Signs Vital signs: Vital Signs Temperature 98.2 F 02/14/23 22:45 Pulse Rate 74 02/14/23 22:45 Respiratory Rate 16 02/14/23 22:45 Blood Pressure 152/91 H 02/14/23 22:45 Pulse Oximetry 100 02/14/23 22:45 Oxygen Delivery Method Room Air 02/14/23 22:45 Temperature 98.2 F 02/14/23 22:45 Pulse Rate 74 02/14/23 22:45 Respiratory Rate 16 02/14/23 22:45 Blood Pressure 152/91 H 02/14/23 22:45 Pulse Oximetry 100 02/14/23 22:45 Oxygen Delivery Method Room Air 02/14/23 22:45 Medical Decision Making MDM Narrative Medical decision making narrative: CBC showed no acute pathology and CMP with some mild hypokalemia CT abdomen and pelvis with contrast,especially with the redness and the signs of infection on the skin from outside, showed possible cellulitis patient instructed to stop using metformin until she follow-up with the primary care doctor further evaluation The patient also was instructed about using a local steroid cream for possible contact dermatitis, also will be covered with Unasyn in ED and Augmentin to go home At this time the patient is without objective evidence of an acute process r equiring hospitalization or inpatient management. The patient has remained hemodynamically stable. No additional indication for emergent studies at this time. I answered all questions. Discussed discharge instructions including standard anticipatory guidance and what should prompt a return to the emergency department, including if they get worse are not getting better or develops any new or concerning symptoms. I've given them specific time frame in which to follow-up, and who to follow-up with. The patient demonstrates understanding. Patient is nontoxic and stable for discharge with outpatient follow-up. The patient is to followup with primary care physician in next 2-3 days or to return to the emergency department should any of the signs or symptoms worsen or new symptoms develop. The patient agrees with the following Diagnosis and Treatment plan and the patient will be discharged home. Lab Data Labs: Lab Results 02/14/23 Range/Units 22:55 WBC 8.4 (4.0-11.0) 10^3/uL RBC 4.33 (4.20-5.40) 10^6/uL Hgb 12.3 (12.0-16.0) g/dL Hct 37.6 (36.0-48.0) % MCV 86.8 (81.0-99.0) fL MCH 28.4 (26.7-34.0) pg MCHC 32.7 (29.9-35.2) g/dL RDW 13.9 (11.0-15.0) % Plt Count 261 (150-450) 10^3/uL MPV 10.1 (9.5-13.5) fL Neut % (Auto) 55.0 (43.0-75.0) % Lymph % (Auto) 33.3 (20.5-60.0) % [place] % (Auto) 7.3 (1.7-12.0) % Eos % (Auto) 3.6 (0.9-7.0) % Baso % (Auto) 0.4 (0.2-2.0) % Neut # (Auto) 4.6 (1.4-6.5) 10^3/uL Lymph # (Auto) 2.8 (1.2-3.8) 10^3/uL [place] # (Auto) 0.6 (0.3-0.8) 10^3/uL Eos # (Auto) 0.3 (0.0-0.7) 10^3/uL Baso # (Auto) 0.0 (0.0-0.1) 10^3/uL Abs Immat Gran (auto) 0.03 (0.00-0.03) 10^3/uL Imm/Tot Granulo (auto) 0.4 (0.0-0.5) % Sodium 135 L (136-145) mmol/L Potassium 3.1 L (3.5-5.1) mmol/L Chloride 99 (98-107) mmol/L Carbon Dioxide 27.8 (21.0-32.0) mmol/L Anion Gap 11.3 BUN 20.0 H (7.0-18.0) mg/dL Creatinine 0.81 (0.55-1.02) mg/dL Est GFR ( Amer) >60 (>=60) Est GFR (Non-Af Amer) >60 (>=60) BUN/Creatinine Ratio 24.7 Glucose 102 (74-106) mg/dL Calcium 8.4 L (8.5-10.1) mg/dL Total Bilirubin 0.3 (0.2-1.0) mg/dL AST 9 L (15-37) U/L ALT 21 (14-59) U/L Alkaline Phosphatase 59 (46-116) U/L Total Protein 7.4 (6.4-8.2) g/dL Albumin 3.6 (3.4-5.0) g/dL Globulin 3.8 g/dL Albumin/Globulin Ratio 0.9 Urine HCG, Qual Negative (NEGATIVE) Discharge Plan Discharge Chief Complaint: Skin/Abscess/Foreign Body Clinical Impression: Cellulitis, Contact dermatitis Patient Disposition: Home, Self-Care Time of Disposition Decision: 02:24 Condition: Good Prescriptions / Home Meds: New amoxicillin-pot clavulanate 875-125 mg tablet 1 tab PO BID Qty: 20 0RF hydrocortisone 1 % cream 1 applic topical BID PRN (Reason: allergic reaction) Qty: 28.4 0RF No Action amitriptyline 50 mg tablet 50 mg PO .QHS levothyroxine 137 mcg tablet 137 mcg PO .aday lisinopril 20 mg tablet 20 mg PO QDAY metformin 500 mg tablet 750 mg PO QDAY Mounjaro 2.5 mg/0.5 mL pen injector 7.5 mg SUBCUT QWEEK Instructions: Cellulitis (ED) Stand Alone Forms: Portal Instructions Referrals: Samanta Cota [Primary Care Provider] - 1 week
[2023-02-14 23:21] LABS: Basophils Percent Auto 0.4 % (0.2-2.0); Eosinophils Absolute Auto 0.3 10^3/uL (0.0-0.7); Eosinophils Percent Auto 3.6 % (0.9-7.0); Hematocrit 37.6 % (36.0-48.0); Hemoglobin 12.3 g/dL (12.0-16.0); Immature Granulocytes Abs Auto 0.03 10^3/uL (0.00-0.03); Immature Granulocytes Pct Auto 0.4 % (0.0-0.5); Lymphocytes Absolute Auto 2.8 10^3/uL (1.2-3.8); Lymphocytes Percent Auto 33.3 % (20.5-60.0); Mean Corpuscular HGB Conc 32.7 g/dL (29.9-35.2); Mean Corpuscular Hemoglobin 28.4 pg (26.7-34.0); Mean Corpuscular Volume 86.8 fL (81.0-99.0); Mean Platelet Volume 10.1 fL (9.5-13.5); Monocytes Absolute Auto 0.6 10^3/uL (0.3-0.8); Monocytes Percent Auto 7.3 % (1.7-12.0); Neutrophils Absolute Auto 4.6 10^3/uL (1.4-6.5); Platelet Count 261 10^3/uL (150-450); Red Blood Count 4.33 10^6/uL (4.20-5.40); Red Cell Distribution Width 13.9 % (11.0-15.0); White Blood Count 8.4 10^3/uL (4.0-11.0)
[2023-02-14] MEDS: KETOROLAC TROMETHAMINE 30 MG/ML VIAL 15 MG IM (23:23)
[2023-02-14 23:33] LABS: Alanine Aminotransferase 21 U/L (14-59); Albumin Globulin Ratio 0.9; Albumin Level 3.6 g/dL (3.4-5.0); Alkaline Phosphatase 59 U/L (46-116); Anion Gap 11.3; Aspartate Amino Transferase 9 U/L (15-37); BUN Creatinine Ratio 24.7; Bilirubin Total 0.3 mg/dL (0.2-1.0); Calcium 8.4 mg/dL (8.5-10.1); Carbon Dioxide 27.8 mmol/L (21.0-32.0); Chloride 99 mmol/L (98-107); Estimated GFR (African America >60 (>=60); Estimated GFR (Non-African Ame >60 (>=60); Globulin 3.8 g/dL; Glucose 102 mg/dL (74-106); Potassium 3.1 mmol/L (3.5-5.1); Sodium 135 mmol/L (136-145); Total Protein 7.4 g/dL (6.4-8.2)
[2023-02-14 23:43] LABS: HCG Qualitative NEGATIVE (NEGATIVE)
[2023-02-15] MEDS: FAMOTIDINE/PF 20 MG/2 ML VIAL IV (01:42)
[2023-02-15] MEDS: ONDANSETRON PF 4 MG/2 ML VIAL IV (01:42)
[2023-02-15] MEDS: AMPICILLIN SODIUM/SULBACTAM NA 3 GM in 0.9 % SODIUM CHLORIDE 100 ML IV (02:41)
== END 2023-02-15 03:23 | disposition home or self-care (01) ==
PROVIDERS: Emergency Provider Emergency Medicine; PCP Nurse Practitioner
DX: L03.311 Cellulitis of abdominal wall (principal); Z98.890 Other specified postprocedural states; Z79.899 Other long term (current) drug therapy; Z79.890 Hormone replacement therapy; Z79.84 Long term (current) use of oral hypoglycemic drugs
CPT/HCPCS: 36415; 74177; 80053; 84703; 85025; 96372; 96374; 96375; 99284; Q9967

== ENCOUNTER 2023-06-30 15:53 | Outpatient (OUT) | payer OTHER, SELFPAY ==
[2023-06-30 16:11] LABS: Basophils Percent Auto 0.3 % (0.2-2.0); Eosinophils Absolute Auto 0.1 10^3/uL (0.0-0.7); Eosinophils Percent Auto 1.7 % (0.9-7.0); Hemoglobin 11.8 g/dL (12.0-16.0); Immature Granulocytes Abs Auto 0.01 10^3/uL (0.00-0.03); Immature Granulocytes Pct Auto 0.2 % (0.0-0.5); Lymphocytes Absolute Auto 1.7 10^3/uL (1.2-3.8); Mean Corpuscular HGB Conc 32.8 g/dL (29.9-35.2); Mean Corpuscular Hemoglobin 29.2 pg (26.7-34.0); Mean Corpuscular Volume 89.1 fL (81.0-99.0); Mean Platelet Volume 10.4 fL (9.5-13.5); Monocytes Absolute Auto 0.5 10^3/uL (0.3-0.8); Monocytes Percent Auto 7.8 % (1.7-12.0); Neutrophils Absolute Auto 4.3 10^3/uL (1.4-6.5); Platelet Count 207 10^3/uL (150-450); Red Blood Count 4.04 10^6/uL (4.20-5.40); Red Cell Distribution Width 13.6 % (11.0-15.0); White Blood Count 6.6 10^3/uL (4.0-11.0)
[2023-06-30 16:37] LABS: Estimated Average Glucose 108 mg/dL; Glycohemoglobin A1C 5.4 % (4.5-6.2)
== END 2023-06-30 15:54 | disposition home or self-care (01) ==
LOC: LAB 15:55
PROVIDERS: PCP Family Medicine; Visit Provider Family Medicine
DX: D50.8 Other iron deficiency anemias (principal); E11.65 Type 2 diabetes mellitus with hyperglycemia
CPT/HCPCS: 36415; 82728; 83036; 85025

== ENCOUNTER 2023-07-26 07:42 | Outpatient (RCR) | payer OTHER, SELFPAY ==
[2023-07-26 15:04] LABS: Basophils Percent Auto 0.6 % (0.2-2.0); Eosinophils Absolute Auto 0.1 10^3/uL (0.0-0.7); Eosinophils Percent Auto 1.2 % (0.9-7.0); Hematocrit 40.9 % (36.0-48.0); Hemoglobin 13.3 g/dL (12.0-16.0); Immature Granulocytes Abs Auto 0.02 10^3/uL (0.00-0.03); Immature Granulocytes Pct Auto 0.3 % (0.0-0.5); Lymphocytes Absolute Auto 1.4 10^3/uL (1.2-3.8); Lymphocytes Percent Auto 22.4 % (20.5-60.0); Mean Corpuscular HGB Conc 32.5 g/dL (29.9-35.2); Mean Corpuscular Volume 89.3 fL (81.0-99.0); Mean Platelet Volume 10.8 fL (9.5-13.5); Monocytes Absolute Auto 0.5 10^3/uL (0.3-0.8); Monocytes Percent Auto 8.2 % (1.7-12.0); Neutrophils Absolute Auto 4.3 10^3/uL (1.4-6.5); Neutrophils Percent Auto 67.3 % (43.0-75.0); Platelet Count 261 10^3/uL (150-450); Red Blood Count 4.58 10^6/uL (4.20-5.40); Red Cell Distribution Width 14.1 % (11.0-15.0); White Blood Count 6.4 10^3/uL (4.0-11.0)
[2023-07-26 15:39] LABS: Percent Iron Saturation 15.7 %
== END 2023-07-28 23:59 | disposition home or self-care (01) ==
LOC: INF 07:42
PROVIDERS: PCP Family Medicine; Visit Provider Internal Medicine Hematology & Oncology
DX: D50.9 Iron deficiency anemia, unspecified (principal); K90.9 Intestinal malabsorption, unspecified; D64.9 Anemia, unspecified
CPT/HCPCS: 36415; 82728; 83540; 83550; 85025; G0463

== ENCOUNTER 2023-08-06 15:17 | Emergency (ER) | payer OTHER, SELFPAY ==
[2023-08-06 15:29] VITALS: BP 162/94; PULSE 80; RESP 18; TEMP 36.7; O2SAT 98; BMI 33.5
[2023-08-06] MEDS: ONDANSETRON PF 4 MG/2 ML VIAL IV (16:11)
[2023-08-06] MEDS: 0.9 % SODIUM CHLORIDE 1,000 ML 1000 ML IV (16:11)
--- NOTE | 2023-08-06 16:22 | ED.GENADUL1 ---
HPI - General Adult General Chief complaint: Nausea/Vomiting/Diarrhea Stated complaint: vomitting headache Time Seen by Provider: 08/06/23 15:49 Source: patient Mode of arrival: walk-in Limitations: no limitations History of Present Illness HPI narrative: 43-year-old female with a history of migraines presents today with migraine headache nausea and vomiting. She states is a typical migraine headache for her. She states she woke with a headache around 3:00 this morning. She's been unable to keep her medications down. Patient was nausea vomiting and photophobia.Denies worse headache of her life.States is been over a year since she's had a headache. She is alert and oriented. Vital signs are stable. Related Data Home Medications Medication Instructions Recorded Confirmed amitriptyline 50 mg tablet 50 mg PO .QHS 02/10/23 08/06/23 levothyroxine 137 mcg tablet 137 mcg PO .aday 02/10/23 08/06/23 lisinopril 20 mg tablet 20 mg PO QDAY 02/10/23 08/06/23 tirzepatide 2.5 mg/0.5 mL 7.5 mg subcut QWEEK 02/10/23 08/06/23 subcutaneous pen injector (Emmanuel) metformin 750 mg tablet,extended 750 mg PO DAILY 08/06/23 08/06/23 release 24 hr Previous Rx's Medication Instructions Recorded amoxicillin 875 mg-potassium 1 tab PO BID #20 tabs 02/15/23 clavulanate 125 mg tablet hydrocortisone 1 % topical cream 1 applic topical BID PRN allergic 02/15/23 reaction #28.4 grams Allergies Allergy/AdvReac Type Severity Reaction Status Date / Time oxycodone [From Percocet] Allergy Intermediate Verified 08/06/23 15:33 Review of Systems ROS Narrative All Systems are negative except as noted/marked.All systems reviewed and otherwise negative [facility] Medical History (Updated 08/06/23 @ 18:48 by Mayte Garrett) Hypothyroidism ?E03.9 - Hypothyroidism, unspecified (ICD-10) Familial hyperthyroidism ?E05.80 - Other thyrotoxicosis without thyrotoxic crisis or storm (ICD-10) HTN (hypertension) ?I10 - Essential (primary) hypertension (ICD-10) Diabetes ?E11.9 - Type 2 diabetes mellitus without complications (ICD-10) Family History (Updated 02/10/23 @ 04:43 by Jazmine Doyle) Mother Family history of COPD (chronic obstructive pulmonary disease) Family history of diabetes mellitus Family history of hypertension Sister Family history of cancer Family history of diabetes mellitus Father Family history of cancer Social History (Updated 02/10/23 @ 04:44 by Jazmine Doyle) Within the past year, how often did you have a drink containing alcohol: never Within the past year, how often did you have six or more drinks on one occasion: never Score interpretation: A score less than 3 is consistent with normal alcohol consumption. 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 Known occupational exposures/hazards: No Highest level of school completed/degree received: GED or equivalent Do you want help with school or training: No Are you now , , , , never or living with a partner: In a typical week, how many times do you talk on the telephone with family, friends, or neighbors: 3 or more times per week How often do you get together with friends or relatives: 3 or more times per week How often do you attend roman catholic or caodaism services: never Do you belong to any clubs or organizations such as roman catholic groups unions, fraternal or athletic groups, or school groups: no Total score: 1 Score interpretation: A score of less than or equal to 1 indicates the most socially isolated. Little interest or pleasure in doing things: not at all Feeling down, depressed, or hopeless: not at all Feel stressed/tense/nervous/anxious/difficulty sleeping: not at all Due to disability, difficulty making decisions: No Do you think of yourself as: straight/heterosexual Gender Identity: female Exam Narrative Exam Narrative: General: The patient appears well and in no apparent distress. Skin: Warm, dry, no pallor noted. There is no rash noted. Head: Normocephalic, atraumatic Eye: Normal conjunctiva, no drainage, EOMI. PERRL Ears, Nose, Mouth, and Throat: oral mucosa is moist. Nares patent. Mouth without vesicles. Ear canals patent. Tm's without Erythema Cardiovascular: Regular Rate and Rhythm Respiratory: Patient is in no distress, no accessory muscle use, lungs are clear to auscultation, no wheezing, rales or rhonchi GI: Normal bowel sounds, no tenderness to palpation, no masses appreciated. No rebound, guarding, or rigidity noted. Musculoskeletal: The patient has no evidence of calf tenderness, no pitting edema, symmetrical pulses noted bilaterally Neurological: A&O x4, normal speech Psychiatric: Cooperative Constitutional Vital Signs, click to edit/add: Last Vital Signs Temp 98.1 F 08/06/23 15:29 Pulse 84 08/06/23 18:25 Resp 18 08/06/23 18:25 BP 169/95 H 08/06/23 18:25 Pulse Ox 98 08/06/23 18:25 O2 Del Method Room Air 08/06/23 15:29 Course Vital Signs Vital signs: Vital Signs Temperature 98.1 F 08/06/23 15:29 Pulse Rate 80 08/06/23 15:29 Respiratory Rate 18 08/06/23 15:29 Blood Pressure 162/94 H 08/06/23 15:29 Pulse Oximetry 98 08/06/23 15:29 Oxygen Delivery Method Room Air 08/06/23 15:29 Temperature 98.1 F 08/06/23 15:29 Pulse Rate 84 08/06/23 18:25 Respiratory Rate 18 08/06/23 18:25 Blood Pressure 169/95 H 08/06/23 18:25 Pulse Oximetry 98 08/06/23 18:25 Oxygen Delivery Method Room Air 08/06/23 15:29 Medical Decision Making MDM Narrative Medical decision making narrative: 43-year-old female with a history of migraines presents today with migraine headache nausea and vomiting. She states is a typical migraine headache for her. She states she woke with a headache around 3:00 this morning. She's been unable to keep her medications down. Patient was nausea vomiting and photophobia.Denies worse headache of her life.States is been over a year since she's had a headache. She is alert and oriented. Vital signs are stable. Patient presented here chief complaint of a headache typical headache of her migraine headaches. Patient medicated here with IV Toradol and Zofran Benadryl and Decadron. She continued to have some pain was then given a one-time dose of pain medicine morphine.. Patient was discharged home. She looks well. Vital signs are improved. Differential Diagnosis Differential Diagnosis: Migraine headache, tension headache Medical Records Medical records reviewed: Yes I reviewed the patient's medical records Lab Data Lab results reviewed: Yes I reviewed the patient's lab results Labs: Lab Results 08/06/23 08/06/23 Range/Units 15:40 17:10 WBC 7.3 (4.0-11.0) 10^3/uL RBC 4.70 (4.20-5.40) 10^6/uL Hgb 13.6 (12.0-16.0) g/dL Hct 41.4 (36.0-48.0) % MCV 88.1 (81.0-99.0) fL MCH 28.9 (26.7-34.0) pg MCHC 32.9 (29.9-35.2) g/dL RDW 14.1 (11.0-15.0) % Plt Count 244 (150-450) 10^3/uL MPV 10.6 (9.5-13.5) fL Neut % (Auto) 75.1 H (43.0-75.0) % Lymph % (Auto) 17.4 L (20.5-60.0) % [place] % (Auto) 6.2 (1.7-12.0) % Eos % (Auto) 0.6 L (0.9-7.0) % Baso % (Auto) 0.4 (0.2-2.0) % Neut # (Auto) 5.5 (1.4-6.5) 10^3/uL Lymph # (Auto) 1.3 (1.2-3.8) 10^3/uL [place] # (Auto) 0.5 (0.3-0.8) 10^3/uL Eos # (Auto) 0.0 (0.0-0.7) 10^3/uL Baso # (Auto) 0.0 (0.0-0.1) 10^3/uL Abs Immat Gran (auto) 0.02 (0.00-0.03) 10^3/uL Imm/Tot Granulo (auto) 0.3 (0.0-0.5) % Sodium 139 (136-145) mmol/L Potassium 3.7 (3.5-5.1) mmol/L Chloride 102 (98-107) mmol/L Carbon Dioxide 25.9 (21.0-32.0) mmol/L Anion Gap 14.8 BUN 13.0 (7.0-18.0) mg/dL Creatinine 0.72 (0.55-1.02) mg/dL Est GFR ( Amer) >60 (>=60) Est GFR (Non-Af Amer) >60 (>=60) BUN/Creatinine Ratio 18.1 Glucose 100 (74-106) mg/dL Calcium 8.8 (8.5-10.1) mg/dL Total Bilirubin 0.7 (0.2-1.0) mg/dL AST 17 (15-37) U/L ALT 19 (14-59) U/L Alkaline Phosphatase 57 (46-116) U/L Total Protein 8.1 (6.4-8.2) g/dL Albumin 3.9 (3.4-5.0) g/dL Globulin 4.2 g/dL Albumin/Globulin Ratio 0.9 Urine Color Yellow (YELLOW) Urine Clarity Clear (CLEAR) Urine pH 6.5 (5.0-9.0) Ur Specific [place] 1.020 (1.005-1.025) Urine Protein Negative (NEG/TRACE) mg/dL Urine Glucose (UA) Negative (NEGATIVE) mg/dL Urine Ketones 15 A (NEGATIVE) mg/dL Urine Occult Blood Trace-i (NEGATIVE) Urine Nitrite Negative (NEGATIVE) Urine Bilirubin Negative (NEGATIVE) Urine Urobilinogen 1.0 (0.2-1.0) EU/dL Ur Leukocyte Esterase Trace A (NEGATIVE) Urine RBC 2-5 A (0-2) #/HPF Urine WBC 5-10 A (NONE SEEN) #/HPF Ur Squamous Epith Cells Moderate A (NONE/RARE) #/LPF Urine Crystals None seen (None Seen) #/HPF Urine Bacteria Small A (NONE SEEN) #/HPF Urine Casts None seen (NONE SEEN) #/LPF Urine Mucus Trace A (NONE SEEN) Discharge Plan Discharge Chief Complaint: Nausea/Vomiting/Diarrhea Clinical Impression: Headache Patient Disposition: Home, Self-Care Time of Disposition Decision: 18:47 Condition: Good Prescriptions / Home Meds: No Action amitriptyline 50 mg tablet 50 mg PO .QHS levothyroxine 137 mcg tablet 137 mcg PO .aday lisinopril 20 mg tablet 20 mg PO QDAY Mounjaro 2.5 mg/0.5 mL pen injector 7.5 mg SUBCUT QWEEK amoxicillin-pot clavulanate 875-125 mg tablet 1 tab PO BID Qty: 20 0RF hydrocortisone 1 % cream 1 applic topical BID PRN (Reason: allergic reaction) Qty: 28.4 0RF metformin 750 mg tablet extended release 24 hr 750 mg PO DAILY Instructions: Acute Headache (DC), General Headache (ED) Stand Alone Forms: Portal Instructions Referrals: Emi Gaxiola MD [Primary Care Provider] - 1 week
[2023-08-06] MEDS: DIPHENHYDRAMINE HCL 50 MG/ML (1ML) VIAL 25 MG IV (16:23)
[2023-08-06] MEDS: KETOROLAC TROMETHAMINE 30 MG/ML VIAL IVP (16:25)
[2023-08-06] MEDS: DEXAMETHASONE SOD PHOS 10 MG/ML VIAL IV (16:25)
[2023-08-06 16:28] LABS: Basophils Percent Auto 0.4 % (0.2-2.0); Eosinophils Percent Auto 0.6 % (0.9-7.0); Hematocrit 41.4 % (36.0-48.0); Hemoglobin 13.6 g/dL (12.0-16.0); Immature Granulocytes Abs Auto 0.02 10^3/uL (0.00-0.03); Immature Granulocytes Pct Auto 0.3 % (0.0-0.5); Lymphocytes Absolute Auto 1.3 10^3/uL (1.2-3.8); Lymphocytes Percent Auto 17.4 % (20.5-60.0); Mean Corpuscular HGB Conc 32.9 g/dL (29.9-35.2); Mean Corpuscular Hemoglobin 28.9 pg (26.7-34.0); Mean Corpuscular Volume 88.1 fL (81.0-99.0); Mean Platelet Volume 10.6 fL (9.5-13.5); Monocytes Absolute Auto 0.5 10^3/uL (0.3-0.8); Monocytes Percent Auto 6.2 % (1.7-12.0); Neutrophils Absolute Auto 5.5 10^3/uL (1.4-6.5); Neutrophils Percent Auto 75.1 % (43.0-75.0); Platelet Count 244 10^3/uL (150-450); Red Cell Distribution Width 14.1 % (11.0-15.0); White Blood Count 7.3 10^3/uL (4.0-11.0)
[2023-08-06 16:40] LABS: Alanine Aminotransferase 19 U/L (14-59); Albumin Globulin Ratio 0.9; Albumin Level 3.9 g/dL (3.4-5.0); Alkaline Phosphatase 57 U/L (46-116); Anion Gap 14.8; Aspartate Amino Transferase 17 U/L (15-37); BUN Creatinine Ratio 18.1; Bilirubin Total 0.7 mg/dL (0.2-1.0); Calcium 8.8 mg/dL (8.5-10.1); Carbon Dioxide 25.9 mmol/L (21.0-32.0); Chloride 102 mmol/L (98-107); Estimated GFR (African America >60 (>=60); Estimated GFR (Non-African Ame >60 (>=60); Globulin 4.2 g/dL; Glucose 100 mg/dL (74-106); Potassium 3.7 mmol/L (3.5-5.1); Sodium 139 mmol/L (136-145); Total Protein 8.1 g/dL (6.4-8.2)
[2023-08-06 17:20] LABS: Bilirubin Urine NEGATIVE (NEGATIVE); Blood Urine TRACE-I (NEGATIVE); Clarity Urine CLEAR (CLEAR); Color Urine YELLOW (YELLOW); Glucose Urine UA NEGATIVE (NEGATIVE); Ketones Urine 15 mg/dL (NEGATIVE); Leukocyte Esterase Urine TRACE (NEGATIVE); Nitrite Urine NEGATIVE (NEGATIVE); Protein Urine NEGATIVE (NEG/TRACE); pH Urine 6.5 (5.0-9.0)
[2023-08-06 17:27] VITALS: BP 173/92; PULSE 82; RESP 18; O2SAT 100
[2023-08-06 17:31] LABS: Bacteria Urine SMALL #/HPF (NONE SEEN); Mucus Urine TRACE (NONE SEEN)
[2023-08-06 17:32] LABS: Cast Seen? NONE SEEN #/LPF (NONE SEEN); Crystals Seen? None Seen #/HPF (None Seen); Squamous Epithelial Cell Urine MODERATE #/LPF (NONE/RARE)
[2023-08-06 18:25] VITALS: BP 169/95; PULSE 84; RESP 18; O2SAT 98
[2023-08-06] MEDS: MORPHINE SULFATE 2 MG/ML SYRINGE IV (18:31)
== END 2023-08-06 19:05 | disposition home or self-care (01) ==
PROVIDERS: Physician Assistant; Emergency Provider Emergency Medicine; PCP Family Medicine
DX: R51.9 Headache, unspecified (principal); Z79.899 Other long term (current) drug therapy; Z79.84 Long term (current) use of oral hypoglycemic drugs; Z79.890 Hormone replacement therapy; E05.80 Other thyrotoxicosis without thyrotoxic crisis or storm; I10 Essential (primary) hypertension; E11.9 Type 2 diabetes mellitus without complications
CPT/HCPCS: 36415; 80053; 81001; 85025; 96361; 96374; 96375; 99284; J1100

== ENCOUNTER 2023-09-02 21:43 | Emergency (ER) | payer OTHER, SELFPAY ==
--- OUTSIDE RECORDS SUMMARY | 2023-09-02 21:47 | XMS_ITS | CCD ---
Author Name Unknown Address [id number] [place] [address] Organization [facility] Care Team Providers Care Passenger T[employer] Builder Name Role Phone UNKNOWN, PROVIDER Admitting Unavailable LONDON RAMIREZ Attending Unavailable UNKNOWN, PHYSICIAN Referring Unavailable UNKNOWN, PHYSICIAN Primary Care Unavailable KELLY SAENZ CNP Primary Care Physician Beverly Childers Unavailable Unavailable AICHHOLZ, TABLEAU ARCHITECT [place] Primary Care Unavailable BOB ., CECI Admitting Unavailable BOB ., CECI Attending Unavailable BOB ., CECI Consulting Unavailable AICHHOLZ, TABLEAU ARCHITECT [place] Primary Care Unavailable HARRISON, TRACEY Admitting Unavailable HARRISON, TRACEY Attending Unavailable HARRISON, TRACEY Consulting Unavailable AICHHOLZ, TABLEAU ARCHITECT [place] Admitting Unavailable AICHHOLZ, TABLEAU ARCHITECT [place] Attending Unavailable AICHHOLZ, TABLEAU ARCHITECT [place] Primary Care Unavailable AICHHOLZ, TABLEAU ARCHITECT [place] Admitting Unavailable AICHHOLZ, TABLEAU ARCHITECT [place] Attending Unavailable AICHHOLZ, TABLEAU ARCHITECT [place] Primary Care Unavailable AICHHOLZ, TABLEAU ARCHITECT [place] Consulting Unavailable DR MANJU CHAMPAGNE Consulting Unavailable AICHHOLZ, TABLEAU ARCHITECT [place] Admitting Unavailable AICHHOLZ, TABLEAU ARCHITECT [place] Attending Unavailable AICHHOLZ, TABLEAU ARCHITECT [place] Primary Care Unavailable AICHHOLZ, TABLEAU ARCHITECT [place] Consulting Unavailable AICHHOLZ, TABLEAU ARCHITECT [place] Admitting Unavailable AICHHOLZ, TABLEAU ARCHITECT [place] Attending Unavailable AICHHOLZ, TABLEAU ARCHITECT [place] Primary Care Unavailable AICHHOLZ, TABLEAU ARCHITECT [place] Consulting Unavailable AICHHOLZ, TABLEAU ARCHITECT [place] Admitting Unavailable AICHHOLZ, TABLEAU ARCHITECT [place] Attending Unavailable AICHHOLZ, TABLEAU ARCHITECT [place] Primary Care Unavailable AICHHOLZ, TABLEAU ARCHITECT [place] Consulting Unavailable JANNYHKEZ, [place] Ara Primary Care Physician [phone] Amanda Villafana Unavailable [place] MURPHY Admitting Unavailable [place]IN MURPHY Attending Unavailable Mateo ALVA Attending Unavailable AMANDA VILLAFANA Referring Unavailable Allergies Allergy Classification Reported Allergen(s) Allergy Type Date of Onset Reaction(s) Facility (2 sources) Acetaminophen / oxyCODONE Drug Allergy 9 [facility] (12 sources) Acetaminophen / oxyCODONE; Translations: [acetaminophen-ox ycodone] Drug Allergy Eruption of skin (disorder), [facility] (1 source) Acetaminophen Drug Allergy 1 [facility] Medications Current Medications Medication Drug Class(es) Dates Sig (Normalized) Sig (Original) 0.5 ML tirzepatide 15 MG/ML Auto-Injector [Mounjaro] (4 sources) Mounjaro 7.5 MG/0.5ML as directed Subcutaneous weekly for 90 days Active 0.5 ML tirzepatide 20 MG/ML Auto-Injector [Mounjaro] (3 sources) Mounjaro 10 MG/0.5ML as directed Subcutaneous weekly for 90 days Active acetaminophen 325 mg / butalbital 50 mg / caffeine 40 mg oral tablet (4 sources) Barbiturate, Central Nervous System Stimulant, Methylxanthine Start: 04-04-2021 take 1 tablet by mouth every four hours for headache APAP/butalbital/c affeine 325 mg-50 mg-40 mg Tab 1 tab(s), Oral, q4hr for headache, 15 tab(s), Refill(s) 0, [id number], 60, cm, 04/04/21 17:48:00 EDT, Height/Length Dosing, 94.9, kg, 04/04/21 17:48:00 EDT, Weight Dosing Start Date: 04/04/21 Status: Ordered amitriptyline hydrochloride 25 mg oral tablet (4 sources) Tricyclic Antidepressant Start: 02-06-2021 take 1 tablet by mouth once daily at bedtime Elavil 25 mg Tab 25 mg = 1 tab(s), Oral, Once a day (at bedtime), # 30 tab(s), Refills(s) 0, Pharmacy: [id number], 60, cm, 02/04/21 9:34:00 EDT, Height/Length Dosing, 99.3, kg, 02/04/21 6:14:00 EDT, Weight Dosing Start Date: 02/06/21 Status: Ordered aspirin 81 mg delayed release oral tablet (4 sources) Platelet Aggregation Inhibitor, Nonsteroidal Anti-inflammatory Drug Start: 02-06-2021 take 1 tablet by mouth once daily aspirin 81 mg Oral EC Tab 81 mg = 1 tab(s), Oral, Daily, # 90 tab(s), Refills(s) 0, Pharmacy: [id number], 60, cm, 02/04/21 9:34:00 EDT, Height/Length Dosing, 99.3, kg, 02/04/21 6:14:00 EDT, Weight Dosing Start Date: 02/06/21 Status: Ordered Start: 02-06-2021 take 1 tablet by torrey th once daily aspirin 81 mg Oral EC Tab 81 mg = 1 tab(s), Oral, Daily, # 90 tab(s), Refills(s) 0, Pharmacy: [facility] #[id number], 60, cm, 02/04/21 9:34:00 EDT, Height/Length Dosing, 99.3, kg, 02/04/21 6:14:00 EDT, Weight Dosing Start Date: 02/06/21 Status: Ordered atorvastatin 40 mg oral tablet (4 sources) HMG-CoA Reductase Inhibitor Start: 02-06-2021 take 1 tablet by mouth once daily Lipitor 40 mg Tab 40 mg = 1 tab(s), Oral, Daily, # 90 tab(s), Refills(s) 0, Pharmacy: [facility] #[id number], 60, cm, 02/04/21 9:34:00 EDT, Height/Length Dosing, 99.3, kg, 02/04/21 6:14:00 EDT, Weight Dosing Start Date: 02/06/21 Status: Ordered lisinopril 20 mg oral tablet (7 sources) Angiotensin Converting Enzyme Inhibitor take 1 tablet by mouth every twenty-four hours Lisinopril 20 MG 1 tablet Orally Once a day Active metFORMIN hydrochloride 500 mg oral tablet (11 sources) Biguanide Start: 09-25-2020 take 500 mg by mouth once daily metformin 500 mg, Oral, Daily, Refills(s) 0, High blood sugar Start Date: 09/25/20 Status: Ordered take 1 tablet by torrey th every twenty-four hours metFORMIN HCl ER 750 MG 1 tablet with evening meal Orally Once a day Active Multi Vitamin+ (4 sources) Start: 02-04-2021 take 1 tablet by mouth once daily Multi Vitamin+ 1 tab, Oral, Daily, Refill(s) 0 Start Date: 02/04/21 Status: Ordered naproxen 500 mg oral tablet (4 sources) Nonsteroidal Anti-inflammatory Drug Start: 02-01-2021 take 1 tablet by mouth twice daily Naprosyn 500 mg Tab 500 mg = 1 tab(s), Oral, BID, # 20 tab(s), Refills(s) 0 Start Date: 02/01/21 Status: Ordered sulfamethoxazole 800 mg / trimethoprim 160 mg oral tablet (1 source) Dihydrofolate Reductase Inhibitor Antibacterial, Sulfonamide Antimicrobial take 1 tablet by mouth every twelve hours Bactrim DS 800-160 MG 1 tablet Orally Twice a day for 5 days Active Zofran ODT 4 mg Tab-Dis (4 sources) Start: 02-01-2021 take 1 tablet by mouth every eight hours Zofran ODT 4 mg Tab-Dis 4 mg = 1 tab(s), Oral, q8hr, # 10 tab(s), Refills(s) 0 Start Date: 02/01/21 Status: Ordered Completed/Discontinued Medications Medication Drug Class(es) Dates Sig (Normalized) Sig (Original) albuterol HFA 90 mcg/inh MDI (4 sources) Start: 02-26-2019 take 1 dose by inhalation every four hours albuterol HFA 90 mcg/inh MDI 1 puff(s), Inhalation, q4hr for wheezing/shortnes s of breath, 1 EA, Refill(s) 0, [facility] #[id number] Start Date: 02/26/19 Status: Ordered levothyroxine sodium 0.15 mg oral tablet (9 sources) l-Thyroxine Start: 11-14-2019 take 1 tablet by mouth once daily Synthroid 150 mcg (0.15 mg) Tab 150 microgram = 1 tab(s), Oral, Daily, # 90 tab(s), Refills(s) 0, Pharmacy: [facility]/pharmacy #[id number], 160, cm, 04/06/19 13:58:00 EDT, Height/Length Measured, 91.2, kg, 04/06/19 13:58:00 EDT, Weight Measured Start Date: 11/14/19 Status: Ordered take 1 capsule by mo [facility] once daily in the morning Levothyroxine Sodium 125 MCG 1 capsule i n the morning on an empty stomach Orally Once a day Active Problems Active Problems Problem Classification Problem Date Documented Da te Episodic/Chronic Asthma (4 sources) Asthma 11-09-2013 Chronic Deficiency and other anemia (6 sources) Iron deficiency anemia; Translations: [Other iron deficiency anemias] Episodic Deficiency and other anemia (2 sources) Other iron deficiency anemias Episodic Diabetes mellitus with complications (11 sources) Type 2 diabetes mellitus; Translations: [Type 2 diabetes mellitus with hyperglycemia] Chronic Diabetes mellitus without complication (13 sources) Diabetes mellitus; Translations: [Diabetic on insulin] Onset: 06-09-2022 Resolved: 05-04-2011 11-09-2013 Chronic Disorders of lipid metabolism (8 sources) Endogenous hyperlipidemia; 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 Essential hypertension (1 source) Essential (primary) hypertension; Translations: [ESSENTIAL PRIMARY HYPERTENSION] Onset: 09-20-2022 Chronic Genitourinary symptoms and ill-defined conditions (3 sources) Dysuria; Translations: [DYSURIA] Onset: 12-12-2022 Episodic Headache; including migraine (5 sources) Migraine without aura, not refractory ; Translations: [Migraine without aura, not intractable, without status migrainosus] Onset: 12-31-2021 Chronic Heart valve disorders (8 sources) Heart murmur; Translations: [Systolic murmur] 03-31-2019 Episodic Comment on above: new last week per pc p Malaise and fatigue (5 sources) Asthenia; Translations: [Weakness] Onset: 02-05-2022 Episodic Miscellaneous mental health disorders (4 sources) Chronic insomnia 01-05-2019 Chronic Nutritional deficiencies (4 sources) Vitamin D deficiency 01-05-2019 Chronic Other aftercare (1 source) prison (current) use of oral hypoglycemic drugs; Translations: [SKILLED NURSING USE ORAL HYPOGLYCEMIC DX] Onset: 12-14-2022 Episodic Other aftercare (1 source) Other [facility] (current) drug therapy; Translations: [OTH SKILLED NURSING CURRENT DRUG THERAPY] Onset: 12-14-2022 Episodic Other connective tissue disease (1 source) Neurological finding; Translations: [Other symptoms and signs involving the nervous system] Onset: 02-05-2022 Episodic Other hereditary and degenerative nervous system conditions (4 sources) Restless legs 09-25-2020 Chronic Other nutritional; endocrine; and metabolic disorders (4 sources) Obesity 02-26-2019 Chronic Other screening for suspected conditions (not mental disorders or infectious disease) (4 sources) Serum iron low 03-31-2019 Episodic Other upper respiratory infections (4 sources) Sinusitis 03-19-2019 Chronic Paralysis (4 sources) Left hemiplegia 04-06-2019 Chronic Residual codes; unclassified (1 source) Refused procedure - parent's wish; Translations: [Procedure and treatment not carried out because of patient's decision for other reasons] Onset: 02-04-2022 Episodic Thyroid disorders (13 sources) Hypothyroidism; Translations: [Hypothyroidism, unspecified] Onset: 09-20-2022 11-09-2013 Chronic Transient cerebral ischemia (4 sources) Transient cerebral ischemic attack, unspecified; Translations: [TRANS CERBRAL ISCHEMIC ATTACK UNS] Onset: 02-15-2022 Chronic Unclassified (4 sources) Christian confucianist (confucianist/philosoph y) 08-23-2011 Urinary tract infections (1 source) Urinary tract infection, site not specified; Translations: [UTI SITE NOT SPECIFIED] Onset: 12-14-2022 Episodic Past or Other Problems Problem Classification Problem Date Documented Da te Episodic/Chronic Diabetes or abnormal glucose tolerance complicating ; childbirth; or the puerperium (4 sources) Gestational diabetes mellitus, class A>2< Resolved: 07-28-2011 09-12-2011 Episodic Other nervous system disorders (1 source) Paresthesia of skin; Translations: [PARESTHESIA OF SKIN] Onset: 02-17-2022 Episodic Results Test Name Value Interpretation Reference Range Facility Physician Referralon 023 Physician Referral [id number] #[id number] Normal [facility] T3 Freeon 03-09-2023 Free T3 [Mass/Vol] 2.7 pg/mL Invalid Interpretation Code 2.0-4.4 [facility] Comment on above: Result Comment: Perf ormed at: [facility] [address], [place] [id number] PhD Toya Avendaño Performed By: #### 7 [id number], [id number], [id number], 8308922, [id number], [id number] #### [facility] [address] [place] [address] CHEMISTRYOrdered By: SYSTEM SYSTEM on 03-08-2023 Albumin [Mass/Vol] 4.3 g/dL Normal 3.3 - 5.0 gm/dL [facility] Albumin/Globulin [Mass ratio] 1.1 {ratio} Normal 1.1 - 2.2 [facility] ALP [Catalytic activity/Vol] 55 [iU]/d Normal 21 - 98 Int._Unit/L [facility] ALT No additional P-5'-P [Catalytic activity/Vol] 17 [iU]/d Normal 6 - 46 Int._Unit/L [facility] Anion gap [Moles/Vol] 9 mmol/L Normal 6 - 16 mEq/L [facility] AST [Catalytic activity/Vol] 19 [iU]/d Normal 5 - 43 Int._Unit/L [facility] Bilirubin [Mass/Vol] 0.6 mg/dL Normal 0.0 - 1 .1 mg/dL [facility] Calcium [Mass/Vol] 9.3 mg/dL Normal 8.9 - 11. 1 mg/dL [facility] Chloride [Moles/Vol] 108 mmol/L Normal 101 - 1 11 mmol/L [facility] CO2 [Moles/Vol] 26 mmol/L Normal 21 - 31 mmol/L [facility] Creatinine [Mass/Vol] 0.7 mg/dL Normal 0.5 - 1.3 mg/dL [facility] Free T4 [Mass/Vol] 1.24 ng/dL Normal 0.58 - 1. 64 ng/dL [facility] GFR/1.73 sq M.predicted among non-blacks MDRD (S/P/Bld) [Vol rate/Area] 109 mL/min/1.73 m2 Normal >=59mL/min/1 .73 m2 [facility] Chem S Globulin (S) [Mass/Vol] 3.8 g/dL Normal 1.4 - 4.0 gm/dL [facility] Glucose [Mass/Vol] 125 mg/dL Normal 55 - 199 mg/dL [facility] Potassium [Moles/Vol] 4.1 mmol/L Normal 3.5 - 5.3 mmol/L [facility] Protein [Mass/Vol] 8.1 g/dL High 6.0 - 7.8 gm/dL [facility] Sodium [Moles/Vol] 139 mmol/L Normal 135 - 145 mmol/L [facility] TSH Qn 0.11 m[IU]/L Low 0.34 - 5.60 mcIU/mL [facility] Urea nitrogen [Mass/Vol] 14 mg/dL Normal 5 - 21 mg/dL [facility] Urea nitrogen/Creatinine [Mass ratio] 20 mg/mg Normal 10 - 20 [facility]isol CHEMISTRYOrdered By: Mateo Thomason on 03-08-2023 HbA1c (Bld) [Mass fraction] 5.8 % Normal <=5.9% [facility] ChemAutoSS CMPon 03-08-2023 Albumin [Mass/Vol] 4.3 g/dL Normal 3.3-5.0 [facility] Comment on above: Performed By: #### 7 [id number], 0665252, 5323287, 7312880, 77327958, 8359237 #### [facility] [address] [place] [address] Albumin/Globulin (S) [Mass conc ratio] 1.1 Normal 1.1-2.2 [facility] Comment on above: Performed By: #### 7 [id number], 2837038, 2933802, 8719397, 46503631, 6449780 #### [facility] [address] [place] [address] ALP [Catalytic activity/Vol] 55 Int._Unit/L Normal 21-98 [facility] Comment on above: Performed By: #### 7 [id number], 6791565, 2842266, 6385300, 47975985, 0233756 #### [facility] [address] [place] [address] ALT No additional P-5'-P [Catalytic activity/Vol] 17 Int._Unit/L Normal 6-46 [facility] Comment on above: Performed By: #### 7 [id number], 0340177, 9881494, 5283154, 68550896, 7275339 #### [facility] [address] [place] [address] Anion gap [Moles/Vol] 9 mmol/L Normal 6-16 [facility] Comment on above: Performed By: #### 7 [id number], 8399776, 9634096, 7803319, 42273989, 6715816 #### [facility] [address] [place] [address] AST [Catalytic activity/Vol] 19 Int._Unit/L Normal 5-43 [facility] Comment on above: Performed By: #### 7 [id number], 4474070, 1116640, 7064949, 20625711, 0433834 #### [facility] [address] [place] [address] Bilirubin [Mass/Vol] 0.6 mg/dL Normal 0.0-1.1 [facility] Comment on above: Performed By: #### 7 [id number], 4534747, 8850216, 1848751, 79703580, 6768778 #### [facility] [address] [place] [address] Calcium [Mass/Vol] 9.3 mg/dL Normal 8.9-11.1 [facility] Comment on above: Performed By: #### 7 [id number], 2726206, 1587456, 8660740, 90930613, 6593187 #### [facility] [address] [place] [address] Chloride [Moles/Vol] 108 mmol/L Normal 101-111 [facility] Comment on above: Performed By: #### 7 [id number], 2330320, 8771148, 7441593, 24304757, 7647947 #### [facility] [address] [place] [address] CO2 [Moles/Vol] 26 mmol/L Normal 21-31 [facility] Comment on above: Performed By: #### 7 [id number], 2816339, 8583580, 3013850, 04707589, 5889269 #### [facility] [address] [place] [address] Creatinine [Mass/Vol] 0.7 mg/dL Normal 0.5-1.3 [facility] Comment on above: Performed By: #### 7 [id number], 6432705, 9896677, 7594183, 61661506, 8425353 #### [facility] [address] [place] [address] Globulin (S) [Mass/Vol] 3.8 g/dL Normal 1.4-4.0 [facility] Comment on above: Performed By: #### 7 [id number], 8695539, 2192099, 5765100, 63165443, 3344345 #### [facility] [address] [place] [address] Glucose [Mass/Vol] 125 mg/dL Normal 55-199 [facility] Comment on above: Result Comment: If t his glucose result represents a fasting glucose, interpretation should refer to the following reference range: 55-99 mg/dL Performed By: #### 7 [id number], 8379533, 3138584, 4479723, 51186229, 1462596 #### [facility] [address] [place] [address] Potassium [Moles/Vol] 4.1 mmol/L Normal 3.5-5.3 [facility] Comment on above: Performed By: #### 7 [id number], 2305242, 4164073, 3398929, 10336325, 3370254 #### [facility] [address] [place] [address] Protein [Mass/Vol] 8.1 g/dL High 6.0-7.8 [facility] Comment on above: Performed By: #### 7 [id number], 6538193, 4412533, 1497174, 67692932, 2768815 #### [facility] [address] [place] [address] Sodium [Moles/Vol] 139 mmol/L Normal 135-145 [facility] Comment on above: Performed By: #### 7 06831616, 1377965, 3911462, 7812708, 96093150, 1432754 #### [facility] [address] [place] [address] Urea nitrogen [Mass/Vol] 14 mg/dL Normal 5-21 [facility] Comment on above: Performed By: #### 7 [id number], 0156894, 7673166, 9754875, 50110348, 5297003 #### [facility] [address] [place] [address] Urea nitrogen/Creatinine [Mass ratio] 20 No Units Normal 10-20 [facility] Comment on above: Performed By: #### 7 [id number], 0820715, 6473348, 3582427, 54583383, 0783932 #### [facility] [address] [place] [address] Consent for Treatmenton 02-26 Consent for Treatment [id number] #1.00CD:127 Normal [facility] Free T4on 03-08-2023 Free T4 [Mass/Vol] 1.24 ng/dL Normal 0.58-1.64 [facility] Comment on above: Performed By: #### 7 [id number], 9204294, 6290330, 0037255, 25834196, 1836435 #### [facility] [address] [place] [address] [id number] 03-08-2023 HbA1c (Bld) [Mass fraction] 5.8 % Normal <=5.9 [facility] Comment on above: Performed By: #### 7 [id number], 6743127, 3131931, 5828668, 89346135, 3193171 #### [facility] [address] [place] [address] Physician Orderon 03-08-2023 Physician Order [id number] #1.00CD:127 Normal [facility] TSHon 03-08-2023 TSH Qn 0.11 m[IU]/L Low 0.34-5.60 [facility] Comment on above: Performed By: #### 7 [id number], 8685780, 1985562, 5027456, 83818884, 5370075 #### [facility] [address] [place] [address] eGFRon 03-08-2023 GFR/1.73 sq M.predicted among non-blacks MDRD (S/P/Bld) [Vol rate/Area] 109 mL/min/1.73 m2 Normal >=59 [facility] Comment on above: Order Comment: Order added by Discern Expert. Result Comment: C[employer] Livestock Farm Manager emre kidney disease could be indicated at eGFR's of less than 60 mL/min/1.73m2. Kidney failure is indicated at less than 15 mL/min/1.73m2. Performed By: #### 7 [id number], 7463609, 6239512, 4531276, 26921860, 6252863 #### [facility] [address] [place] [address] CULTURE URINEon 12-14-2022 CULTURE URINE Isolate 1 Klebsiella pneumoniae >100,000 cfu/mL of ORGANISM 1 Klebsiella pneumoniae ANTIBIOTIC M.I.C RX STATUS Ampicillin 16 R F Ampicillin/Sulbactam 4 S F Piperacillin/Tazobac paul <=4 S F Cefazolin <=4 S F Ceftazidime <=1 S F Ceftriaxone <=1 S F Ertapenem <=0.5 S F Imipenem <=0.25 S F Amikacin <=2 S F Gentamicin <=1 S F Tobramycin <=1 S F Ciprofloxacin <=0.25 S F Levofloxacin <=0.12 S F Nitrofurantoin 64 I F Trimethoprim/Sulfame thoxazole <=20 S F Normal [facility] Comment on above: Performed By: #### VERONICA SIERRA #### [facility] [address] [place] [address] Dr. Dandy Dobson Physician Orderon 12-13-2022 Physician Order [id number] #1.00CD:127 Normal [facility] ER URINE PROFILEon 3 Bilirubin Ql (U) Negative Normal NEGATIVE [facility] Comment on above: Performed By: #### Jony HUGHES UMICRO #### [facility] [address] [place] [address] Dr. Dandy Dobson Clarity (U) SL CLOUDY Abnormal CLEAR [facility] Comment on above: Performed By: #### Jony HUGHES UMICRO #### [facility] [address] [place] [address] Dr. Dandy Dobson Color (U) LT. YELLOW Normal YELLOW [facility] Comment on above: Performed By: #### Jony HUGHES UMICRO #### [facility] [address] [place] [address] Dr. Dandy LAO A micrscopic examination will be performed if indicated. Normal [facility] Comment on above: Performed By: #### Jony HUGHES UMICRO #### [facility] [address] [place] [address] Dr. Dandy Dobson Glucose Ql (U) Negative Normal NEGATIVE [facility] Comment on above: Performed By: #### Jony HUGHES UMICRO #### [facility] [address] [place] [address] Dr. Dandy Dobson Hemoglobin Ql (U) SMALL Abnormal NEGATIVE [facility] Comment on above: Performed By: #### Jony RUR, UMICRO #### [facility] [address] [place] [address] Dr. Dandy Dobson Ketones Ql (U) Negative Normal NEGATIVE [facility] Comment on above: Performed By: #### E RUR, UMICRO #### [facility] [address] [place] [address] Dr. Dandy Dobson LEUKOCYTES SMALL Abnormal NEGATIVE [facility] Comment on above: Performed By: #### E RUR UMICRO #### [facility] [address] [place] [address] Dr. Dandy Dobson Nitrite Ql (U) Negative Normal NEGATIVE [facility] Comment on above: Performed By: #### Jony HUGHES UMICRO #### [facility] [address] [place] [address] Dr. Dandy Dobson pH (U) 6.0 [pH] Normal 5-9 [facility] Comment on above: Performed By: #### Jony HUGHES UMICRO #### [facility] [address] [place] [address] Dr. Dandy Dobson Protein (U) [Mass/Vol] 30 mg/dL Abnormal NEGAT JACKELYN/ TRACE [facility] Comment on above: Performed By: #### Jony HUGHES UMICRO #### [facility] [address] [place] [address] Dr. Dandy Dobson SPEC GRAVITY >=1.030 Abnormal 1.005-<=1.02 5 [facility] Comment on above: Performed By: #### Jony HUGHES UMICRO #### [facility] [address] [place] [address] Dr. Dandy Dobson UR MICRO IND INDICATED Normal [facility] Comment on above: Performed By: #### Jony HUGHES UMICRO #### [facility] [address] [place] [address] Dr. Dandy Dobson Urobilinogen Qn (U) 1.0 {Sarahi'U}/dL Normal 0.2 - 1. 0 [facility] Comment on above: Performed By: #### Jony HUGHES UMICRO #### [facility] [address] [place] [address] Dr. Dandy Dobson URon 12-12-2022 , QUAL Negative Normal NEGATIVE [facility] Comment on above: Performed By: #### P REGU #### [facility] [address] [place] [address] Dr. Dandy Dobson URINE MICROSCOPIC ONLYon BACTERIA SMALL Abnormal NONE SEEN [facility] Comment on above: Performed By: #### E RUR, UMICRO #### [facility] [address] [place] [address] Dr. Dandy Dobson Bacteria identified Cx Nom (U) INDICATED Normal [facility] Comment on above: Performed By: #### Jony HUGHES UMICRO #### [facility] [address] [place] [address] Dr. Dandy Dobson CAST NONE SEEN Normal NONE SEEN [facility] Comment on above: Performed By: #### Jony HUGHES UMICRO #### [facility] [address] [place] [address] Dr. Dandy Dobson Crystals LM Nom (Urine sed) NONE SEEN Normal NONE SEEN [facility] Comment on above: Performed By: #### HELEN SIERRARO #### [facility] [address] [place] [address] Dr. Dandy Dobson Epithelial cells LM Ql (Urine sed) MODERATE Abnormal NONE SEEN /RARE [facility] Comment on above: Performed By: #### Jony HUGHES UMICRO #### [facility] [address] [place] [address] Dr. Dandy Dobson MUCOUS NONE SEEN Normal NONE SEEN [facility] Comment on above: Performed By: #### Joyn HUGHES UMICRO #### [facility] [address] [place] [address] Dr. Dandy Dobson RBC 10-20 Abnormal 0-2 [facility] Comment on above: Performed By: #### HELEN SIERRARO #### [facility] [address] [place] [address] Dr. Dandy Dobson WBC (U) [#/Vol] /uL Abnormal NONE SEEN [facility] Comment on above: Performed By: #### ADAMA SIERRAICRO #### [facility] [address] [place] [address] Dr. Dandy Dobson FREE T4on 11-29-2022 Free T4 [Mass/Vol] 1.10 ng/dL Normal 0.76-1.46 [facility] Comment on above: Performed By: #### Jony HUGHES UMICRO #### [facility] [address] [place] [address] Dr. Dandy Dobson TSHon 11-29-2022 TSH 0.204 uIU/mL Critically low 0.358-3.[address] [facility] Comment on above: Performed By: #### E VERONICA HUGHES #### [facility] [address] [place] [address] Dr. Dandy Dobson CBC AUTO DIFFon 09-14-2022 BASO # 0.0 103/ul Normal 0.0-0.1 [facility] Comment on above: Performed By: #### C BC #### [facility] [address] [place] [address] Dr. Dandy Dobson Basophils/100 WBC (Bld) 0.4 % Normal 0.2-2.0 [facility] Comment on above: Performed By: #### C BC #### [facility] [address] [place] [address] Dr. Dandy Dobson EO # 0.1 103/ul Normal 0.0-0.7 [facility] Comment on above: Performed By: #### C BC #### [facility] [address] [place] [address] Dr. Dandy Dobson Eosinophils/100 WBC (Bld) 2.1 % Normal 0.9-7.0 [facility] Comment on above: Performed By: #### C BC #### [facility] [address] [place] [address] Dr. Dandy Dobson Erythrocyte distribution width (RBC) [Ratio] 13.7 % Normal 11.0-15.0 [facility] Comment on above: Performed By: #### C BC #### [facility] [address] [place] [address] Dr. Dandy Dobson Hematocrit (Bld) [Volume fraction] 38.7 % Normal 36.0-48.0 [facility] Comment on above: Performed By: #### C BC #### [facility] [address] [place] [address] Dr. Dandy Dobson Hemoglobin (Bld) [Mass/Vol] 12.6 g/dL Normal 12.0-16.0 [facility] Comment on above: Performed By: #### C BC #### [facility] [address] [place] [address] Dr. Dandy Dobson IG # 0.01 10e3/ul Normal 0.00-0.03 [facility] Comment on above: Performed By: #### C BC #### [facility] [address] [place] [address] Dr. Dandy Dobson IG % 0.2 % Normal 0.0-0.5 [facility] Comment on above: Performed By: #### C BC #### [facility] [address] [place] [address] Dr. Dandy Dobson LYMPH # 1.6 103/ul Normal 1.2-3.8 [facility] Comment on above: Performed By: #### C BC #### [facility] [address] [place] [address] Dr. Dandy Dobson Lymphocytes/100 WBC (Bld) 27.5 % Normal 20.5-60.0 [facility] Comment on above: Performed By: #### C BC #### [facility] [address] [place] [address] Dr. Dandy Dobson MANUAL DIFF REQ NO Normal [facility] Comment on above: Performed By: #### C BC #### [facility] [address] [place] [address] Dr. Dandy Dobson MCH (RBC) [Entitic mass] 27.1 pg Normal 26.7-34.0 [facility] Comment on above: Performed By: #### C BC #### [facility] [address] [place] [address] Dr. Dandy Dobson MCHC (RBC) [Mass/Vol] 32.6 g/dL Normal 29.9-35.2 [facility] Comment on above: Performed By: #### C BC #### [facility] [address] [place] [address] Dr. Dandy Dobson MCV (RBC) [Entitic vol] 83.2 fL Normal 81.0-99.0 [facility] Comment on above: Performed By: #### C BC #### [facility] [address] [place] [address] Dr. Dandy Dobson MONO # 0.6 103/ul Normal 0.3-0.8 [facility] Comment on above: Performed By: #### C BC #### [facility] [address] [place] [address] Dr. Dandy Dobson Monocytes/100 WBC (Bld) 9.9 % Normal 1.7-12.0 [facility] Comment on above: Performed By: #### C BC #### [facility] [address] [place] [address] Dr. Dandy Dobson NEUT # 3.4 103/ul Normal 1.4-6.5 [facility] Comment on above: Performed By: #### C BC #### [facility] [address] [place] [address] Dr. Dandy Dobson Neutrophils/100 WBC (Bld) 59.9 % Normal 43.0-75.0 [facility] Comment on above: Performed By: #### C BC #### [facility] [address] [place] [address] Dr. Dandy Dobson Platelet mean volume (Bld) [Entitic vol] 9.7 fL Normal 9.5-13.5 [facility] Comment on above: Performed By: #### C BC #### [facility] [address] [place] [address] Dr. Dandy Dobson PLT 230 103/ul Normal 150-450 [facility] Comment on above: Performed By: #### C BC #### [facility] [address] [place] [address] Dr. Dandy Dobson RBC 4.65 106/ul Normal 4.20-5.40 [facility] Comment on above: Performed By: #### C BC #### [facility] [address] [place] [address] Dr. Dandy Dobson WBC 5.6 103/ul Normal 4.0-11.0 [facility] Comment on above: Performed By: #### C BC #### [facility] [address] [place] [address] Dr. Dandy Dobson FERRITINon 09-14-2022 Ferritin [Mass/Vol] 52.0 ng/mL Normal 6.2-137.0 [facility] Comment on above: Performed By: #### V ITB12, IRON, FT4, FERR #### [facility] [address] [address] [address] Dandy Dobson FREE T4on 09-14-2022 Free T4 [Mass/Vol] 1.69 ng/dL Critically high 0.76-1.46 [facility] Comment on above: Performed By: #### V ITB12, IRON, FT4, FERR #### [facility] [address] [address] [address] Dandy Dobson GLYCOHEMOGLOBIN A1Con 2022 ADA RECOMMENDATION SEE BELOW Normal [facility] Comment on above: Result Comment: ADA RECOMMENDED LIMIT 4.0 - 6.0 ADA THERAPEUTIC TARGET < 7.0 ACTION SUGGESTED > 7.0 Performed By: #### VERONICA SIERRA #### [facility] [address] [place] [address] Dr. Dandy Dobson Glucose [Mass/Vol] 134 mg/dL Normal [facility] Comment on above: Performed By: #### VERONICA SIERRA #### [facility] [address] [place] [address] Dr. Dandy Dobson HbA1c (Bld) [Mass fraction] 6.3 % Critically high 4.5-6.2 [facility] Comment on above: Performed By: #### VERONICA SIERRA #### [facility] [address] [place] [address] Dr. Dandy Dobson IRONon 09-14-2022 Iron [Mass/Vol] 42.0 ug/dL Critically low 50.0-170.0 [facility] Comment on above: Performed By: #### V ITB12, IRON, FT4, FERR #### [facility] [address] [place] [address] Dr. Dandy Dobson PROF 14(COMP METB)on 023 Albumin [Mass/Vol] 3.8 g/dL Normal 3.4-5.0 [facility] Comment on above: Performed By: #### HELEN SIERRARO #### [facility] [address] [place] [address] Dr. Dandy Dobson Albumin/Globulin [Mass ratio] 1.0 {ratio} Normal [facility] Comment on above: Performed By: #### ADAMA SIERRAICRO #### [facility] [address] [place] [address] Dr. Dandy Dobson ALP [Catalytic activity/Vol] 66 U/L Normal 46-116 [facility] Comment on above: Performed By: #### Jony HUGHES UMICRO #### [facility] [address] [place] [address] Dr. Dandy Dobson ALT [Catalytic activity/Vol] 20 U/L Normal 14-59 [facility] Comment on above: Performed By: #### HELEN SIERRARO #### [facility] [address] [place] [address] Dr. Dandy Dobson Anion gap [Moles/Vol] 11.3 mmol/L Normal [facility] Comment on above: Performed By: #### ADAMA SIERRAICRO #### [facility] [address] [place] [address] Dr. Dandy Dobson AST [Catalytic activity/Vol] 16 U/L Normal 15-37 [facility] Comment on above: Performed By: #### HELEN SIERRARO #### [facility] [address] [place] [address] Dr. Dandy Dobson Bilirubin [Mass/Vol] 0.3 mg/dL Normal 0.2-1.0 [facility] Comment on above: Performed By: #### HELEN SIERRARO #### [facility] [address] [place] [address] Dr. Dandy Dobson Calcium [Mass/Vol] 9.0 mg/dL Normal 8.5-10.1 [facility] Comment on above: Performed By: #### Jony HUGHES UMICRO #### [facility] [address] [place] [address] Dr. Dandy Dobson Chloride [Moles/Vol] 103 mmol/L Normal 98-107 [facility] Comment on above: Performed By: #### VERONICA SIERRA #### [facility] [address] [place] [address] Dr. Dandy Dobson CO2 [Moles/Vol] 28.2 mmol/L Normal 21.0-32.0 [facility] Comment on above: Performed By: #### VERONICA SIERRA #### [facility] [address] [place] [address] Dr. Dandy Dobson Creatinine [Mass/Vol] 0.57 mg/dL Normal 0.55-1.02 [facility] Comment on above: Performed By: #### VERONICA SIERRA #### [facility] [address] [place] [address] Dr. Dandy Dobson EGFR-AF SLOVENIAN >60 Normal >=[address] [facility] Comment on above: Performed By: #### HELEN SIERRARO #### [facility] [address] [place] [address] Dr. Dandy Dobson EGFR-NON AF SLOVENIAN >60 Normal >=60 [facility] Comment on above: Performed By: #### VERONICA SIERRA #### [facility] [address] [place] [address] Dr. Dandy Dobson Globulin (S) [Mass/Vol] 3.7 g/dL Normal [facility] Comment on above: Performed By: #### HELEN SIERRARO #### [facility] [address] [place] [address] Dr. Dandy Dobson Glucose [Mass/Vol] 107 mg/dL Critically high 74-106 [facility] Comment on above: Performed By: #### HELEN SIERRARO #### [facility] [address] [place] [address] Dr. Dandy Dobson Potassium [Moles/Vol] 3.5 mmol/L Normal 3.5-5.1 [facility] Comment on above: Performed By: #### HELEN SIERRARO #### [facility] [address] [place] [address] Dr. Dandy Dobson Protein [Mass/Vol] 7.5 g/dL Normal 6.4-8.2 [facility] Comment on above: Performed By: #### Jony HUGHES, UMICRO #### [facility] [address] [address] [address] Dandy Dobson Sodium [Moles/Vol] 139 mmol/L Normal 136-145 [facility] Comment on above: Performed By: #### Jony HUGHES, UMICRO #### [facility] [address] [place] [address] Dr. Dandy Dobson Urea nitrogen [Mass/Vol] 12.0 mg/dL Normal 7.0-18.0 [facility] Comment on above: Performed By: #### Jony HUGHES, UMICRO #### [facility] [address] [place] [address] Dr. Dandy Dobson Urea nitrogen/Creatinine [Mass ratio] 21.1 mg/mg Normal [facility] Comment on above: Performed By: #### Jony HUGHES, UMICRO #### [facility] [address] [place] [address] Dr. Dandy Dobson TSHon 09-14-2022 TSH 0.015 uIU/mL Critically low 0.358-3.740 [facility] Comment on above: Performed By: #### Jony HUGHES, UMICRO #### [facility] [address] [place] [address] Dr. Dandy Dobson VITAMIN B12on 09-14-2022 Cobalamin (Vitamin B12) [Mass/Vol] 485.0 pg/mL Normal 193.0-986.0 [facility] Comment on above: Performed By: #### V ITB12, IRON, FT4, FERR #### [facility] [address] [place] [address] Dr. Dandy Dobson GLYCOHEMOGLOBIN A1Con 2021 ADA RECOMMENDATION SEE BELOW Normal [facility] Comment on above: Result Comment: ADA RECOMMENDED LIMIT 4.0 - 6.0 ADA THERAPEUTIC TARGET < 7.0 ACTION SUGGESTED > 7.0 Performed By: #### A 1C #### [facility] [address] [address] [address] Dandy Dobson Glucose [Mass/Vol] 143 mg/dL Normal [facility] Comment on above: Performed By: #### A 1C #### [facility] [address] [address] [address] Dandy Dobson HbA1c (Bld) [Mass fraction] 6.6 % Critically high 4.5-6.2 [facility] Comment on above: Performed By: #### A 1C #### [facility] [address] [place] [address] Dr. Dandy Dobson LIPID PROFILEon 06-09-2022 CHOL-HDL RATIO NORM SEE BELOW Normal [facility] Comment on above: Result Comment: 3.3 - 4.4 LOW RISK 4.4 - 7.1 AVERAGE RISK 7.1 - 11.0 MODERATE RISK >11.0 HIGH RISK Performed By: #### VERONICA SIERRA #### [facility] [address] [place] [address] Dr. Dandy Dobson Cholesterol [Mass/Vol] 138 mg/dL Normal <=200 [facility] Comment on above: Performed By: #### VERONICA SIERRA #### [facility] [address] [place] [address] Dr. Dandy Dobson Cholesterol in HDL [Mass/Vol] 46 mg/dL Normal 40-60 [facility] Comment on above: Performed By: #### VERONICA SIERRA #### [facility] [address] [place] [address] Dr. Dandy Dobson Cholesterol in LDL [Mass/Vol] 62.4 mg/dL Normal [facility] Comment on above: Performed By: #### VERONICA SIERRA #### [facility] [address] [place] [address] Dr. Dandy Dobson Cholesterol.total/Chol esterol in HDL [Mass ratio] 3.0 {ratio} Normal [facility] Comment on above: Performed By: #### VERONICA SIERRA #### [facility] [address] [address] [address] Dandy Dobson HDL NORMAL > or = 60 mg/dl - LOW CARDIOVASCULAR RISK <40 mg/dl - HIGH CARDIOVASCULAR RISK Normal [facility] Comment on above: Performed By: #### VERONICA SIERRA #### [facility] [address] [address] [address] Dandy Dobson LDL CALC NORMAL SEE BELOW Normal [facility] Comment on above: Result Comment: <100 mg/dl OPTIMAL 100 - 129 mg/dl NEAR OR ABOVE OPTIMAL 130 - 159 mg/dl BORDERLINE HIGH 160 - 189 mg/dl HIGH >190 mg/dl VERY HIGH Performed By: #### VERONICA SIERRA #### [facility] [address] [place] [address] Dr. Dandy Dobson Triglyceride [Mass/Vol] 148 mg/dL Normal <=150 [facility] Comment on above: Performed By: #### VERONICA SIERRA #### [facility] [address] [place] [address] Dr. Dandy Dobson VLDL CALC 29.6 mg/dL Normal [facility] Comment on above: Performed By: #### VERONICA SIERRA #### [facility] [address] [place] [address] Dr. Dandy Dobson PROF CHEM 8 (BAS METB)on Anion gap [Moles/Vol] 9.4 mmol/L Normal [facility] Comment on above: Performed By: #### HELEN SIERRARO #### [facility] [address] [place] [address] Dr. Dandy Dobson Calcium [Mass/Vol] 8.7 mg/dL Normal 8.5-10.1 [facility] Comment on above: Performed By: #### HELEN SIERRARO #### [facility] [address] [place] [address] Dr. Dandy Dobson Chloride [Moles/Vol] 104 mmol/L Normal 98-107 [facility] Comment on above: Performed By: #### HELEN SIERRARO #### [facility] [address] [place] [address] Dr. Dandy Dobson CO2 [Moles/Vol] 28.8 mmol/L Normal 21.0-32.0 [facility] Comment on above: Performed By: #### VERONICA SIERRA #### [facility] [address] [address] [address] Dandy Dobson Creatinine [Mass/Vol] 0.67 mg/dL Normal 0.55-1.02 [facility] Comment on above: Performed By: #### VERONICA SIERRA #### [facility] [address] [address] [address] Dandy Dobson EGFR-AF SLOVENIAN >60 Normal >=60 [facility] Comment on above: Performed By: #### VERONICA SIERRA #### [facility] [address] [address] [address] Dandy Dobson EGFR-NON AF SLOVENIAN >60 Normal >=60 [facility] Comment on above: Performed By: #### VERONICA SIERRA #### [facility] [address] [address] [address] Dandy Dobson Glucose [Mass/Vol] 120 mg/dL Critically high 74-106 T [facility] Comment on above: Performed By: #### VERONICA SIERRA #### [facility] [address] [address] [address] Dandy Dobson Potassium [Moles/Vol] 4.2 mmol/L Normal 3.5-5.1 [facility] Comment on above: Performed By: #### VERONICA SIERRA #### [facility] [address] [address] [address] Dandy Dobson Sodium [Moles/Vol] 138 mmol/L Normal 136-145 [facility] Comment on above: Performed By: #### VERONICA SIERRA #### [facility] [address] [address] [address] Dandy Dobson Urea nitrogen [Mass/Vol] 17.0 mg/dL Normal 7.0-18.0 [facility] Comment on above: Performed By: #### VERONICA SIERRA #### [facility] [address] [address] [address] Dandy Dobson Urea nitrogen/Creatinine [Mass ratio] 25.4 mg/mg Normal [facility] Comment on above: Performed By: #### E SAUL, VERONICA #### [facility] [address] [place], [place] [address] Dr. Dandy Dobson MRI BRAIN WO CONon MRI BRAIN WO CON EXAMINATION: MRI BRAIN WO CON, 02/15/2022 10:45 AM EDT HISTORY: Transient cerebral ischemia ; acute right side weakness, tingling, numbness COMPARISON: CT head 01/25/2021 TECHNIQUE: MRI of the brain was performed without IV contrast. FINDINGS: CEREBRUM: Several small T2 hyperintensities within the periventricular and subcortical deep white matter, nonspecific. Several prominent perivascular spaces versus old lacunar infarctions within the basal ganglia bilaterally. No edema, hemorrhage, mass, acute infarction, or inappropriate atrophy. CEREBELLUM: No edema, hemorrhage, mass, acute infarction, or inappropriate atrophy. BRAINSTEM: No edema, hemorrhage, mass, acute infarction, or inappropriate atrophy. CSF SPACES: Ventricles, cisterns, and sulci are appropriate for age. No hydrocephalus, subarachnoid hemorrhage, or mass. SKULL: No mass or other significant visible lesion. SINUSES: Mild chronic sinusitis. ORBITS: Limited views are unremarkable. OTHER: Negative. IMPRESSION: 1. No evidence of acute ischemia. 2. Several small nonspecific T2 hyperintensities within the deep white matter typically associated with chronic small vessel ischemic changes, sequela of chronic migraine headaches, demyelinating process, or incidental finding. 3. Suspect prominent perivascular spaces within the basal ganglia (normal variant) rather than old lacunar infarctions, given the patient's age. 4. Mild chronic sinusitis. Electronically authenticated by: MANJU CHAMPAGNE Date: 2022-02-15 16:53 Normal [facility] CHEMISTRYOrdered By: SYSTEM SYSTEM on 02-04-2022 Troponin I.cardiac [Mass/Vol] 4.40 pg/mL Low 10.10 - 27.10 pg/mL [facility] Remisol Anion gap [Moles/Vol] 12 mmol/L Normal 6 - 16 mEq/L [facility] Remisol Calcium [Mass/Vol] 8.8 mg/dL Low 8.9 - 11. 1 mg/dL [facility] Remisol Chloride [Moles/Vol] 102 mmol/L Normal 101 - 1 11 mmol/L [facility] Remisol CO2 [Moles/Vol] 24 mmol/L Normal 21 - 31 mmol/L [facility] Remisol Creatinine [Mass/Vol] 0.6 mg/dL Normal 0.5 - 1.3 mg/dL [facility] Remisol GFR/1.73 sq M.predicted among blacks MDRD (S/P/Bld) [Vol rate/Area] mL/min/1.73 m2 Normal >=59mL/min/1 .73 m2 [facility] Chem S GFR/1.73 sq M.predicted among non-blacks MDRD (S/P/Bld) [Vol rate/Area] mL/min/1.73 m2 Normal >=59mL/min/1 .73 m2 [facility] Chem S Glucose [Mass/Vol] 150 mg/dL Normal 55 - 199 mg/dL [facility] Remisol Lipase [Catalytic activity/Vol] 38 U/L Normal 13 - 58 unit/L [facility] Remisol Magnesium [Mass/Vol] 1.9 mg/dL Normal 1.3 - 2 .4 mg/dL [facility] Remisol Potassium [Moles/Vol] 3.1 mmol/L Low 3.5 - 5.3 mmol/L [facility] Remisol Sodium [Moles/Vol] 135 mmol/L Normal 135 - 145 mmol/L [facility] Remisol Troponin I.cardiac [Mass/Vol] 4.10 pg/mL Low 10.10 - 27.10 pg/mL [facility] Remisol Urea nitrogen [Mass/Vol] 10 mg/dL Normal 5 - 21 mg/dL [facility] Remisol Urea nitrogen/Creatinine [Mass ratio] 17 mg/mg Normal 10 - 20 [facility] Remisol CHEMISTRYOrdered By: Ciara quintana on 02-04-2022 Natriuretic peptide B (Bld) [Mass/Vol] 33 pg/mL Normal 5 - 80 pg/mL [facility] HemeManSS CHEMISTRYOrdered By: Froilan Edge on 02-04-2022 Glucose [Mass/Vol] 144 mg/dL High 55 - 99 mg/dL [facility] POC Subsection POC Device SN [id number] Invalid Interpretation Code [facility] POC Subsection POC User ID [id number] Invalid Interpretation Code [facility] POC Subsection POC Username [email or web address] [email or web address] Invalid Interpretation Code [facility] POC Subsection COAGULATIONOrdered By: Christina Colindres on 02-04-2022 aPTT Coag (PPP) [Time] 32.0 s Normal 25.1 - 36.5 second(s) [facility] Auto Coag INR Coag (PPP) [Relative time] 1.0 {INR} Invalid Interpretation Code [facility] Auto Coag PT Coag (PPP) [Time] 11.6 s Normal 10.2 - 12.9 second(s) [facility] Auto Coag HEMATOLOGYOrdered By: SYSTEM SYSTEM on 02-04-2022 Basophils/100 WBC (Bld) 0.9 % Normal 0.0 - 2.0 % [facility] HemeAutoSS Basophils/Leukocytes Auto (Bld) [Pure # fraction] 0.1 E9/L Normal 0.0 - 0.2 E9/L [facility]eAuto[facility] Eosinophils/100 WBC (Bld) 1.2 % Normal 0.0 - 8.0 % [facility]eAuto[facility] Eosinophils/Leukocytes Auto (Bld) [Pure # fraction] 0.1 E9/L Normal 0.0 - 0.5 E9/L [facility] Lymphocytes/100 WBC (Bld) 27.8 % Normal 14.0 - 50.0 % [facility] HemeAutoSS Lymphocytes/Leukocytes Auto (Bld) [Pure # fraction] 2.0 E9/L Normal 1.0 - 4.0 E9/L [facility] Monocytes/100 WBC (Bld) 7.0 % Normal 4.0 - 14.0 % [facility]eAutoSS Monocytes/Leukocytes Auto (Bld) [Pure # fraction] 0.5 E9/L Normal 0.2 - 1.0 E9/L [facility] Neutrophils/100 WBC (Bld) 63.1 % Normal 36.0 - 75.0 % [facility] Neutrophils/Leukocytes Auto (Bld) [Pure # fraction] 4.6 E9/L Normal 2.0 - 7.5 E9/L [facility] HEMATOLOGYOrdered By: Ciara Nugent on 02-04-2022 Erythrocyte distribution width (RBC) [Ratio] 14.5 % High 10.9 - 14.2 % [facility] Hematocrit (Bld) [Volume fraction] 40.5 % Normal 34.0 - 46.0 % [facility] Hemoglobin (Bld) [Mass/Vol] 13.4 g/dL Normal 12.0 - 16.0 gm/dL [facility] MCH (RBC) [Entitic mass] 26.7 pg Low 27.0 - 34.0 pg [facility] MCHC (RBC) [Mass/Vol] 33.2 g/dL Normal 31.4 - 36.0 gm/dL [facility] MCV (RBC) [Entitic vol] 80.6 fL Normal 80.0 - 100.0 fL [facility] Platelet mean volume (Bld) [Entitic vol] 8.5 fL Normal 6.4 - 10.8 fL [facility] Platelets (Bld) [#/Vol] 202.0 E9/L Normal 150.0 - 500.0 E9/L [facility] RBC (Bld) [#/Vol] 5.0 E12/L Normal 4.3 - 5.9 E12/L [facility] WBC corrected for nucl RBC Auto (Bld) [#/Vol] 7.3 E9/L Normal 4.0 - 11.0 E9/L [facility] URINALYSISOrdered By: Christina xiong on 02-04-2022 Bacteria LM Ql (Urine sed) Trace /HPF Normal Trace/HPF [facility] UA Auto SS Bilirubin Ql (U) Negative (02/04/22 7:21 PM) Normal Negative [facility] UA Auto SS Clarity (U) Clear (02/04/22 7:21 PM) Normal Clear [facility] UA Auto SS Color (U) Straw *ABN* (02/04/22 7:21 PM) Invalid Interpretation Code Yellow [facility] UA Auto SS Epithelial cells.squamous LM.HPF (Urine sed) [#/Area] 0-2 /HPF Normal 0-2/HPF [facility] UA Aut o SS Glucose Test strip (U) [Mass/Vol] Negative (02/04/22 7:21 PM) Normal Negative [facility] UA Auto SS Hemoglobin Ql (U) Negative (02/04/22 7:21 PM) Normal Negative [facility] UA Auto SS Ketones (U) [Mass/Vol] Negative (02/04/22 7:21 PM) Normal Negative [facility] UA Auto SS [place].plasma/[place] .RBC (Bld) [Mass ratio] 0-3 /HPF Normal 0-3/HPF [facility] UA Auto SS Nitrite Ql (U) Negative (02/04/22 7:21 PM) Normal Negative [facility] UA Auto SS pH (U) 7.0 *NA* (02/04/22 7:21 PM) Invalid Interpretation Code 5.0 - 9.0 [facility] UA Auto SS Protein (U) [Mass/Vol] Negative (02/04/22 7:21 PM) Normal Negative [facility] UA Auto SS Specific gravity (U) [Rel density] 1.010 *NA* (02/04/22 7:21 PM) Invalid Interpretation Code 1.005 - 1.030 [facility] UA Auto SS UA Spec Desc Random Urine (02/04/22 7:21 PM) Normal [facility] UA Auto SS Urobilinogen Qn (U) 0.0816032 {Sarahi'U}/dL Normal 0.0 - 1.0 EU/dL [facility] UA Auto SS WBC Auto Ql (U) Negative (02/04/22 7:21 PM) Normal Negative [facility] UA Auto SS WBC LM.HPF (Urine sed) [#/Area] 0-5 /HPF Normal 0-5/HPF [facility] UA Auto SS CBC AUTO DIFFon 12-31-2021 BASO # 0.0 103/ul Normal 0.0-0.1 [facility] Comment on above: Performed By: #### C BC #### [facility] [address] [place] [address] Dr. Dandy Dobson Basophils/100 WBC (Bld) 0.2 % Normal 0.2-2.0 [facility] Comment on above: Performed By: #### C BC #### [facility] [address] [place] [address] Dr. Dandy Dobson EO # 0.0 103/ul Normal 0.0-0.7 [facility] Comment on above: Performed By: #### C BC #### [facility] [address] [place] [address] Dr. Dandy Dobson Eosinophils/100 WBC (Bld) 0.1 % Critically low 0.9-7.0 [facility] Comment on above: Performed By: #### C BC #### [facility] [address] [place] [address] Dr. Dandy Dobson Erythrocyte distribution width (RBC) [Ratio] 13.9 % Normal 11.0-15.0 [facility] Comment on above: Performed By: #### C BC #### [facility] [address] [place] [address] Dr. Dandy Dobson Hematocrit (Bld) [Volume fraction] 42.7 % Normal 36.0-48.0 [facility] Comment on above: Performed By: #### C BC #### [facility] [address] [place] [address] Dr. Dandy Dobson Hemoglobin (Bld) [Mass/Vol] 13.9 g/dL Normal 12.0-16.0 [facility] Comment on above: Performed By: #### C BC #### [facility] [address] [place] [address] Dr. Dandy Dobson IG # 0.03 10e3/ul Normal 0.00-0.03 [facility] Comment on above: Performed By: #### C BC #### [facility] [address] [place] [address] Dr. Dandy Dobson IG % 0.3 % Normal 0.0-0.5 [facility] Comment on above: Performed By: #### C BC #### [facility] [address] [place] [address] Dr. Dandy Dobson LYMPH # 1.2 103/ul Normal 1.2-3.8 [facility] Comment on above: Performed By: #### C BC #### [facility] [address] [place] [address] Dr. Dandy Dobson Lymphocytes/100 WBC (Bld) 13.5 % Critically low 20.5-60.0 [facility] Comment on above: Performed By: #### C BC #### [facility] [address] [place] [address] Dr. Dandy Dobson MANUAL DIFF REQ NO Normal [facility] Comment on above: Performed By: #### C BC #### [facility] [address] [place] [address] Dr. Dandy Dobson MCH (RBC) [Entitic mass] 27.4 pg Normal 26.7-34.0 [facility] Comment on above: Performed By: #### C BC #### [facility] [address] [address] [address] Dandy Dobson MCHC (RBC) [Mass/Vol] 32.6 g/dL Normal 29.9-35.2 [facility] Comment on above: Performed By: #### C BC #### [facility] [address] [address] [address] Dandy Dobson MCV (RBC) [Entitic vol] 84.2 fL Normal 81.0-99.0 [facility] Comment on above: Performed By: #### C BC #### [facility] [address] [place] [address] Dr. Dandy Dobson MONO # 0.4 103/ul Normal 0.3-0.8 [facility] Comment on above: Performed By: #### C BC #### [facility] [address] [place] [address] Dr. Dandy Dobson Monocytes/100 WBC (Bld) 5.0 % Normal 1.7-12.0 [facility] Comment on above: Performed By: #### C BC #### [facility] [address] [place] [address] Dr. Dandy Dobson NEUT # 7.1 103/ul Critically high 1.4-6.5 [facility] Comment on above: Performed By: #### C BC #### [facility] [address] [place] [address] Dr. Dandy Dobson Neutrophils/100 WBC (Bld) 80.9 % Critically high 43.0-75.0 [facility] Comment on above: Performed By: #### C BC #### [facility] [address] [place] [address] Dr. Dandy Dobson Platelet mean volume (Bld) [Entitic vol] 10.4 fL Normal 9.5-13.5 [facility] Comment on above: Performed By: #### C BC #### [facility] [address] [place] [address] Dr. Dandy Dobson PLT 256 103/ul Normal 150-450 [facility] Comment on above: Performed By: #### C BC #### [facility] [address] [place] [address] Dr. Dandy Dobson RBC 5.07 106/ul Normal 4.20-5.40 [facility] Comment on above: Performed By: #### C BC #### [facility] [address] [place] [address] Dr. Dandy Dobson WBC 8.8 103/ul Normal 4.0-11.0 [facility] Comment on above: Performed By: #### C BC #### [facility] [address] [place] [address] Dr. Dandy Dobson PROF CHEM 8 (BAS METB)on Anion gap [Moles/Vol] 11.2 mmol/L Normal [facility] Comment on above: Performed By: #### VERONICA SIERRA #### [facility] [address] [place] [address] Dr. Dandy Dobson Calcium [Mass/Vol] 8.2 mg/dL Critically low 8.5-10.1 [facility] Comment on above: Performed By: #### VERONICA SIERRA #### [facility] [address] [place] [address] Dr. Dandy Dobson Chloride [Moles/Vol] 100 mmol/L Normal 98-107 [facility] Comment on above: Performed By: #### VERONICA SIERRA #### [facility] [address] [place] [address] Dr. Dandy Dobson CO2 [Moles/Vol] 25.5 mmol/L Normal 21.0-32.0 [facility] Comment on above: Performed By: #### VERONICA SIERRA #### [facility] [address] [place] [address] Dr. Dandy Dobson Creatinine [Mass/Vol] 0.72 mg/dL Normal 0.55-1.02 [facility] Comment on above: Performed By: #### VERONICA SIERRA #### [facility] [address] [address] [address] Dandy Dobson EGFR-AF SLOVENIAN >60 Normal >=60 [facility] Comment on above: Performed By: #### Jony HUGHES UMICRO #### [facility] [address] [address] [address] Dandy Dobson EGFR-NON AF SLOVENIAN >60 Normal >=60 [facility] Comment on above: Performed By: #### HELEN SIERRARO #### [facility] [address] [place] [address] Dr. Dandy Dobson Glucose [Mass/Vol] 201 mg/dL Critically high 74-106 T [facility] Comment on above: Performed By: #### HELEN SIERRARO #### [facility] [address] [place] [address] Dr. Dandy Dobson Potassium [Moles/Vol] 3.7 mmol/L Normal 3.5-5.1 [facility] Comment on above: Performed By: #### HELEN SIERRARO #### [facility] [address] [place] [address] Dr. Dandy Dobson Sodium [Moles/Vol] 133 mmol/L Critically low 136-145 Th [facility] Comment on above: Performed By: #### HELEN SIERRARO #### [facility] [address] [place] [address] Dr. Dandy Dobson Urea nitrogen [Mass/Vol] 9.0 mg/dL Normal 7.0-18.0 [facility] Comment on above: Performed By: #### HELEN SIERRARO #### [facility] [address] [place] [address] Dr. Dandy Dobson Urea nitrogen/Creatinine [Mass ratio] 12.5 mg/mg Normal [facility] Comment on above: Performed By: #### Jony HUGHES UMICRO #### [facility] [address] [place] [address] Dr. Dandy Rausch 01-22-2021 TRESAN Telephone ([facility]) APRYL DOWNS ([id number]) 1980 F Date Time Provider Department 01/22/21 JOB WEBER During your visit today, we recorded the following information about you: Carla Barrera [facility] 01/22/2021 9:01 AM Signed Patient called in would like to schedule follow up. Patient states she missed follow up in October. Job: With Dr Kaplan's schedules being booked due to his upcoming vacation. Would you be able to see this patient for follow up? May I schedule her follow up with you? Please let me know and I will call patient to schedule. Thank you. Carla Barrera [facility] Job Weber APRN.TRESA 01/22/2021 10:31 AM Signed Yes patient can be added to my schedule. Job Weber APRN.TRES[facility] Barrera [facility] 01/22/2021 10:39 AM Signed Called and spoke with patient. Patient has been scheduled to see Job 01/28 @ 11:00. Patient is aware she will be seeing Job for this appointment. Carla Barrera [facility] Allergies As of Date: 01/22/2021 Noted Allergy Reaction OXYCODONE-ACETAMINOP SERGIO 09/09/2020 2 - Rash Comments: Has tolerated norco in the past Date Reviewed: 01/22/2021 Reviewed by: Job Weber APRN.TABLEAU ARCHITECT - Fully Assessed Reason for Visit: Future Appointment [256] Prescriptions as of 01/22/2021 Sig: METFORMIN 500 MG TABLET Take 500 mg by mouth twice da* IRON SUCROSE IV INFUSION IN N* Inject intravenously. 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 States she has not stopped bleeding since 10/18. Says it is a moderate bleed. Marjorie Nobles RN 10/28/2020 9:53 AM Signed I called the patient and there was no answer. VM is full and cannot leave a message. Marjorie Jacobo 10/28/2020 2:40 PM Signed Patient is returning call. Marjorie Nobles RN 10/28/2020 3:20 PM Signed I called the patient and there was no answer. VM is full and cannot leave a message. Marjorie Nobles RN 10/28/2020 3:33 PM Signed Patient called the office back. She is s/p HSC'c ablation, DANDC on 10/03 for thickened endometrium. Patient states she started bleeding on 10/18 and she is still bleeding. It is a moderate flow and has not slowed down. Patient states she has to change her pad every 2 hours. She just started having to wear a tampon because she was bleeding through the pad. She is not passing clots. States she has very mild cramping. Denies fever, odor, any other symptoms. Patient is aware I will send a message to Dr Muñoz for recommendations. She will call with any change in symptoms or any further concerns. Marjorie Muñoz MD 10/29/2020 8:52 AM Signed I ordered CBC if she wants to do it. Marjorie Nobles RN 10/29/2020 11:16 AM Signed RN called patient and no answer. Left message to call office back. Marjorie Trevizo 10/29/2020 12:31 PM Signed Patient returned RN call. Marjorie Nobles RN 10/29/2020 12:34 PM Signed I called the patient and there was no answer. VM is full and cannot leave a message. Marjorie Nobles RN 10/29/2020 2:30 PM Signed Patient called the office back. Discussed Dr Muñoz's message and she verbalizes understanding. She will go to [facility] lab for CBC. She will call the office with any change in symptoms or any further questions or concerns. Marjorie Nobles RN Allergies As of Date: 10/28/2020 Noted Allergy Reaction OXYCODONE-ACETAMINOP HEN 09/09/2020 2 - Rash Comments: Has tolerated norco in the past Date Reviewed: 10/03/2020 Reviewed by: Bharti Lorenz (Rn) DAWNA Zavala - Fully Assessed Reason for Visit: Surgical Followup [104] Vaginal Bleeding [203] Primary Visit Diagnosis:Excessive bleeding in premenopausal period [N92.4] Order(s):CBC [SQCB] Order #: [id number] FUTURE Prescriptions as of 10/28/2020 Sig: METFORMIN 500 MG TABLET Take 500 mg by mouth twice da* IRON SUCROSE IV INFUSION IN N* Inject intravenously. ONDANSETRON HCL 8 MG TABLET Take 1 tablet by mouth every * ALBUTEROL SULFATE HFA 90 MCG/* TAKE 1 TO 2 PUFFS PRIOR TO EX* ASPIRIN 81 MG TABLET,DELAYED * LEVOTHYROXINE 150 MCG TABLET Take 150 mcg by mouth once da* ONDANSETRON 8 MG DISINTEGRATI* dissolve 1 tablet ON TONGUE e* Problem List As Of Date 10/28/2020 Noted Resolved Iron deficiency anemia due to chronic blood los*09/09/2020 More... 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 Systolic murmur [R01.1] 10/02/2020 Heart murmur [R01.1] 10/02/2020 More... Patient is Christian [Z78.9] 10/02/2020 More... Encounter Status:Closed by MARJORIE NOBLES RN on [facility]/29/20 [id number] APRYL DOWNS ([id number]) 1980 F Date Time Provider Department 10/06/20 AYAH MUÑOZ [id number] During your visit today, we recorded the following information about you: Yoli Jacobo 10/06/2020 9:46 AM Signed Apryl Downs called today. : 1980 Allergies: Oxycodone-Acetaminop hen (home) [phone] (cell) Reason for call: Patient calling with foul odor coming from her incision, did have fever on Tuesday. Had ablation on Tuesday. Patient last appointment: 09/25/2020 The patients preferred pharmacy has been captured for this encounter? not asked Yoli Blackmon RN 10/06/2020 10:17 AM Signed Called pt. Pt states she is having yellow discharge and foul odor from vagina. Pt states she had felt like she had fever on Tuesday, took Aleeve, has resolved. Pt denies vaginal itching, burning, irritation. Pt had ablation on 10/03/20. Flagyl pended at verified pharmacy if appropriate. Pt is also asking for work excuse. States she has document stating her surgery date, but needs work excuse for weekend and today. Please advise if appropriate. Lana uMñoz MD 10/06/2020 11:54 AM Signed Work excuse is ok. D/C and odor is normal for 4-6 weeks after ablation. No need for ABx. Thank you. Lana Blackmon RN 10/06/2020 12:59 PM Signed Called pt. Advised of provider message. Work release sent via [employer]. Pt verbalized understanding. Lana Blackmon RN Allergies As of Date: 10/06/2020 Noted Allergy Reaction OXYCODONE-ACETAMINOP HEN 09/09/2020 2 - Rash Comments: Has tolerated norco in the past Date Reviewed: 10/03/2020 Reviewed by: Bharti Lorenz (Rn) DAWNA Zavala - Fully Assessed Reason for Visit: Surgical Followup [104] Prescriptions as of 10/06/2020 Sig: METFORMIN 500 MG TABLET Take 500 mg by mouth twice da* IRON SUCROSE IV INFUSION IN N* Inject intravenously. ONDANSETRON HCL 8 MG TABLET Take 1 tablet by mouth every * ALBUTEROL SULFATE HFA 90 MCG/* TAKE 1 TO 2 PUFFS PRIOR TO EX* ASPIRIN 81 MG TABLET,DELAYED * LEVOTHYROXINE 150 MCG TABLET Take 150 mcg by mouth once da* ONDANSETRON 8 MG DISINTEGRATI* dissolve 1 tablet ON TONGUE e* Problem List As Of Date 10/06/2020 Noted Resolved Iron deficiency anemia due to chronic blood los*09/09/2020 More... 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 Systolic murmur [R01.1] 10/02/2020 Heart murmur [R01.1] 10/02/2020 More... Patient is Christian [Z78.9] 10/02/2020 More... Letter Text Encounter Status:Closed by LANA BLACKMON RN on 10/06/20 [facility] ANES POSTPROC EVALon 021 ANES POSTPROC EVAL HNO ID: [id number] Author: Naz Caballero Service: Anesthesiology Author Type: Anesthesiologist Type: Anesthesia Postprocedure Evaluation Filed: 10/03/2020 8:32 AM Note Text: POST ANESTHESIA EVALUATION NOTE : 1980 Procedure Summary Date: 10/03/20 Room / Location: [place] [address] / OR Anesthesia Start: 741 Anesthesia Stop: 815 Procedures: HYSTEROSCOPY WITH ENDOMETRIAL ABLATION ANN (N/A Uterus) HYSTEROSCOPY, D AND C (N/A Uterus) Diagnosis: Excessive bleeding in premenopausal period Anemia, unspecified type (Excessive bleeding in premenopausal period [N92.4]Anemia, unspecified type [D64.9]) Surgeons: Ayah Muñoz Responsible Provider: Naz Caballero Anesthesia Type: general ASA Status: 3 Anesthesia Type: general Last vitals Vitals Value Taken Time BP 99/45 10/03/20 0830 Temp 98 10/03/20 0832 Pulse 77 10/03/20 0832 Resp 16 10/03/20 0832 SpO2 98 % 10/03/20 0831 Vitals shown include unvalidated device data. Post Anesthesia Patient Status Patient Evaluation: bedside. Anticipated Disposition: phase 2 then home. Neurological Status: aware and responsive. Pulmonary Status: breathing comfortably on room air Airway Control: returned to baseline unsupported. Cardiovascular Status: stable. Pain Management: clinically adequate - multimodal analgesia pain management approach Postoperative Hydration: acceptable. Intraoperative Events: no significant anesthesia events Post Operative Nausea/Vomiting Status: Anesthetic Observations: no significant anesthetic observations Recommendation: continue current plan of care and further care per PACU/ICU/floor team. SIGNATURE: Naz Caballero MD PATIENT NAME: Apryl Downs DATE: October 03, 2020 TIME: 8:32 AM CSN: [id number] [facility] ANES PRE-OPon 10-03-2020 ANES PRE-OP HNO ID: [id number] Author: Naz Caballero Service: Anesthesiology Author Type: Anesthesiologist Type: Anesthesia Preprocedure Evaluation Filed: 10/03/2020 7:02 AM Note Text: ANESTHESIOLOGY DAY OF SURGERY NOTE : 1980 Procedure(s) (LRB): HYSTEROSCOPY WITH ENDOMETRIAL ABLATION ANN (N/A) HYSTEROSCOPY, D AND C (N/A) Surgeon(s): Ayah Muñoz Estimated body mass index is 35.61 kg/m? as calculated from the following: Height as of 10/02/20: 160 cm (5' 3 ). Weight as of 10/02/20: 91.2 kg (201 lb). Most recent hematocrit and potassium results: Hematocrit 29.5 09/24/2020 Potassium 4.1 09/19/2020 Relevant Problems CARDIO (+) Heart murmur (+) Systolic murmur ENDO (+) Hypothyroidism I - PHYSICAL EVALUATION AIRWAY Patient intubated: No. Tracheostomy tube not present Mallampati: II. TM distance: >3 FB. Neck ROM: full ROM without neurological symptoms. Mouth opening: adequate. Short neck: no. Thick neck: no DENTAL Normal dental observations. Dental findings: teeth intact. Additional exam findings: no II - ANESTHESIA PLAN ASA Score: 3 Anesthetic Plan: general Airway type: LMA NPO Status: adequate Monitoring plan: Standard ASA. Postoperative analgesic plan: parenteral or oral opioids and multimodal analgesia. Anesthetic Risks, Benefits, Alternatives, Personnel Discussed. Consent obtained from: patient.Patient / Surrogate agrees to blood products: blood products not planned DNR status not reviewed with patient and/or family prior to surgery. Significant changes in the patient condition since the History and Physical, not otherwise documented in primary service progress note: no. Potential Anesthesia issues that may suggest increased risk of complications or contraindication to planned procedure: none. No vitals data found for the desired time range. No current facility-administere d medications on file as of 10/03/2020. Outpatient Medications as of 10/03/2020 Medication Sig - metFORMIN (GLUCOPHAGE) 500 mg tablet Take 500 mg by mouth twice daily with meals. - albuterol HFA (PROVENTIL HFA, VENTOLIN HFA) 90 mcg/actuation inhaler TAKE 1 TO 2 PUFFS PRIOR TO EXERCISE NEEDED - levothyroxine (SYNTHROID) 150 mcg tablet Take 150 mcg by mouth once daily. - ondansetron (ZOFRAN) 8 mg tablet Take 1 tablet by mouth every 8 hours as needed for Nausea/Vomiting. - aspirin, enteric coated (ASPIRIN, ENTERIC COATED) 81 mg EC tablet - ondansetron orally disintegrating (ZOFRAN ODT) 8 mg disintegrating tablet dissolve 1 tablet ON TONGUE every 4 hours if needed I have interviewed and examined the patient. I have reviewed the medical record and/or the pre-anesthesia evaluation, pertinent labs, and test results. This contains updated information obtained within 48 hours of Surgery/Procedure. SIGNATURE: Naz Caballero MD PATIENT NAME: Apryl Downs DATE: October 03, 2020 TIME: 7:02 AM CSN: [id number] Normal [facility] OPERATIVE NOon 10-03-2020 OPERATIVE NO HNO ID: [id number] Author: Ayah Muñoz Service: Gynecology Author Type: Physician Type: Operative Report Filed: 10/03/2020 4:23 PM Note Text: [facility] - Operative Report APRYL DOWNS : 1980 AGE: 40. SEX: F PATIENT TYPE: A HOSP SVC: OBGYN LOCATION: [facility] ATTENDING PHYSICIAN: Ayah Muñoz M.D. CSN NUMBER: [id number] DATE OF SURGERY/PROCEDURE: 10/03/2020 INCISION/PROCEDURE START TIME: 7:57 AM INCISION CLOSE/PROCEDURE END TIME: 8:07 AM PREOPERATIVE DIAGNOSIS: Menorrhagia. POSTOPERATIVE DIAGNOSIS: Menorrhagia. SURGEON: Ayah Muñoz M.D. SAP ANALYST: None. SURGERY/PROCEDURE: Hysteroscopy, Ann endometrial ablation, D and C, and ECC. ANESTHESIA: MAC. I was scrubbed and performed the entire procedure. COMPLICATIONS: None. SPECIMENS: Endocervical curetting, endometrial curetting sent to Pathology. CLINICAL HISTORY: The patient is a 40-year-old who was seen in the office with heavy menstrual bleeding. The patient had a history of 4 sections and tubal ligation. Options were discussed with the patient in length and because of her heavy bleeding, she elected to proceed with endometrial ablation knowing possible risks and complication including possible 10% chance of failure and she elected to proceed knowing all possible risks and complications. DESCRIPTION OF PROCEDURE: The patient was taken to the operating room where general anesthesia was induced. The patient was placed in dorsal lithotomy position in Travis stirrups. The patient was prepped and draped in the usual fashion for hysteroscopy. Single-toothed tenaculum was applied on the anterior lip of the cervix. Cervix was easily dilated up to a #16 Valdes dilator. A 5.5-mm hysteroscope was introduced into the endometrial cavity, which was inspected systematically. Endometrium was noted to be significantly thickened, but there was no other abnormality seen. Pictures were taken, printed, and placed in the patient's hospital chart. Both tubal ostia were identified. Endometrial cavity length was measured at 6 cm. At this point, endocervical curetting was obtained followed by endometrial curetting, which was sent to Pathology. At this point, the Ann endometrial ablation device was brought on the field, was placed inside the endometrial cavity in the usual fashion. Cavity assessment was successful in both steps and the endometrial ablation was completed in 2 minutes in the usual fashion without any difficulties. The device was easily removed at the end of the ablation and there was no bleeding from the cervix. Instruments were removed from vagina and cervix. The patient was taken out of dorsal lithotomy position, extubated, transferred to the recovery room in stable condition. COUNTS: Instrument, needles, and sponge count was correct x3. ESTIMATED BLOOD LOSS: 5 mL. Ayah Muñoz M.D. FSB:[id number] /[id number] Normal [facility] SURGICAL PATHOLOGYon 021 SURGICAL PATHOLOGY Specimen originated from [facility] Specimen #: [id number] Submitting Physician: AYAH MUÑOZ MD FINAL DIAGNOSIS 1. Endocervical curettings (A) - Benign endocervical and ectocervical tissue. 2. Endometrial curettings (B) - Secretory endometrium. AES/rw 10/06/2020 Beatriz Goss M.D. (Electronic Signature) SPECIMEN SUBMITTED A: ENDOCERVICAL, CURETTINGS B: ENDOMETRIAL, CURETTINGS CLINICAL DATA EXCESSIVE BLEEDING IN PREMENOPAUSAL PERIOD; ANEMIA, UNSPECIFIED TYPE GROSS DESCRIPTION A. Received in formalin are multiple mcgrath-red, soft feathery segments of tissue aggregating to 2.3 x 1.0 x 0.1 cm. Totally submitted in one cassette. B. Received in formalin are multiple red, soft feathery segments of tissue aggregating to 11.5 x 2.3 x 0.4 cm. Totally submitted in five cassettes. Gross examination performed at [facility], [address] [place] [address] 10/03/2020 12:53:09 PM Date of Report: 10/06/2020 Date of Procedure: 10/03/2020 Date of Receipt: 10/03/2020 Submitted by: AYAH MUÑOZ MD Location: AV Diagnostic interpretation performed at [facility], [address] [place] [address]. [place] Number: [id number] Normal [facility] Reference Lab Comment on above: Performed By: #### S #### See report for performing lab information. HOSPon 09-26-2020 HOSP Patient:Akira Downs MRN: Height:5' 3 (1.6 m) Weight:201 lb (91.173 kg) Outpatient Medications as of 10/03/20: metFORMIN (GLUCOPHAGE) 500 mg tablet NaCl 0.9% solp 250 mL with iron sucrose 100 mg iron/5 mL soln ondansetron (ZOFRAN) 8 mg tablet albuterol HFA (PROVENTIL HFA, VENTOLIN HFA) 90 mcg/actuation inhaler aspirin, enteric coated (ASPIRIN, ENTERIC COATED) 81 mg EC tablet levothyroxine (SYNTHROID) 150 mcg tablet ondansetron orally disintegrating (ZOFRAN ODT) 8 mg disintegrating tablet Admission/Clinic Administered Medications as of 10/03/20: Patient has no admission medications. 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 She was seen on 09/22 and discussed menorrhagia. Reviewed endo bx results below with the patient. Questions answered. She has PUS scheduled for 10/16. She discussed an ablation at her appointment and would like to schedule. Please advise if OK to schedule surgery. Marjorie Nobles RN FINAL DIAGNOSIS Endometrium, biopsy - Proliferative endometrium. Previous Version Ayah Muñoz MD 09/25/2020 3:53 PM Signed Ok to schedule any time. Thank you. Jessica Barnard Ma 09/26/2020 10:25 AM Signed Left message for pt to contact office regarding scheduling surgical case. Jessica Barnard Ma 09/26/2020 12:25 PM Signed Pt scheduled for 10/03/20 at [facility] endometrial ablation [facility] for menorrhagia AND anemia through [facility] today. Pt notified of the all surgery information above. Pt aware that she will require pre op testing prior to surgery and PAT number given to pt to call and schedule. Pt aware PAT needs completed to proceed with surgery. Pt is aware she will need to be at [facility] as instructed by [facility] facility and no solid food after midnight. The [facility] facility will contact the pt the day before surgical case by 4 pm with arrival time. She is also aware that she will require transportation to and from hospital. Pt was not scheduled for COVID testing for pt states she tested positive 07/28/20 and she would be within 90 days so no testing required. Pt aware post op exam in office 4 weeks post op and should call office to schedule. Pt states she understands and will comply. Pt will call back with any additional questions. Jessica Barnard Ma 09/26/2020 12:25 PM Signed Pt stated that she tested positive for COVID 07/28/20 outside [facility] so she will not need COVID testing prior to surgical case on 10/03/20 correct. Please Advise Jessica Barnard Ma 09/26/2020 2:33 PM Signed COVID order needed for surgical case scheduled for 10/03/20 at [facility], please approve if appropriate. Spoke with pt. Pt aware if she can provider hard copy of positive test then she will not need test but if not she needs to be tested per [facility] surgery scheduling. COVID scheduled for 10/01/20 at 12:30 pm at [facility], pt aware. Progress Notes (BRISEIDA ALISHA ): Halima Alvarez 09/24/2020 11:12 AM Signed Pt states that she is very tired and weak. Halima Weber APRN.TRESA 09/26/2020 3:27 PM Signed PATIENT NAME: Apryl Downs DATE: 09/24/2020 (Elements copied from Олег Kaplan MD note dated August have been reviewed and updated where appropriate, and all reflect current assessment and medical decision making during today's encounter, September 24, 2020) PRIMARY CARE PHYSICIAN: Kelly Saenz CNP CC: This is a 40 year old female with a history of recurrent iron deficiency anemia, seen for scheduled follow-up. (Former [facility] patient) INTERIM HISTORY: Apryl Downs returns for follow up. She received IV Injectafer on 09/17/2020 and tolerated the infusion well. Today she complains of weakness, fatigue and dizziness. She is still craving ice. She was seen by gynecology, Dr. Muñoz, on 09/22/2020 and an endometrial biopsy was performed. She states that after the biopsy she had bleeding the entire day. She is now having mild vaginal spotting. She states that after the biopsy she developed severe lower abdominal pain. She is currently scheduled on 10/09/2020 for a pelvic ultrasound the supervisor varnish's office will be calling her to set up an ablation. MEDICATIONS: ondansetron (ZOFRAN) 8 mg tablet Take 1 tablet by mouth every 8 hours as needed for Nausea/Vomiting. albuterol HFA (PROVENTIL HFA, VENTOLIN HFA) 90 mcg/actuation inhaler TAKE 1 TO 2 PUFFS PRIOR TO EXERCISE NEEDED aspirin, enteric coated (ASPIRIN, ENTERIC COATED) 81 mg EC tablet levothyroxine (SYNTHROID) 150 mcg tablet Take 150 mcg by mouth once daily. ondansetron orally disintegrating (ZOFRAN ODT) 8 mg disintegrating tablet dissolve 1 tablet ON TONGUE every 4 hours if needed ALLERGIES: Oxycodone-Acetaminop hen PAST MEDICAL HISTORY: No past medical history on file. PAST SURGICAL HISTORY: No past surgical history on file. REVIEW OF SYSTEMS: General: No weight loss, malaise or fevers. Positive weakness. HEENT: Negative for frequent or significant headaches. No changes in hearing or vision, no nose bleeds or other nasal problems. Respiratory: Negative for cough, wheezing or shortness of breath. Cardiovascular: Negative for chest pain, leg swelling or palpitations. GI: Negative for blood in stools or black stools or change in bowel habits. Positive lower abdominal pain. : No history of dysuria, frequency or incontinence. Musculoskeletal: Negative for joint pain or swelling, back pain and muscle pain. Skin: Negative for lesions, rash and itching. Hematology/Lympholog y: Negative for prolonged bleeding, bruising easily or swollen nodes. Neuro: No history of headaches, syncope, paralysis, seizures or tremors. Positive dizziness. PHYSICAL EXAM: Vitals: BP 142/71 Pulse 77 Temp 36.6 ?C (97.9 ?F) (Temporal) Resp 20 Ht 160 cm (5' 2.99 ) Wt 93.6 kg (206 lb 6.4 oz) LMP 09/08/2020 (Exact Date) SpO2 97% BMI 36.57 kg/m? Exam limited to gross visualization where appropriate due to COVID-19. Gen.: This is an age-appropriate patient in no acute distress. Head: Appears atraumatic with no visible lesions. Eyes: Pupils equally round and reactive to light, extraocular muscles are intact. Neck: Supple. Mouth: Mucous membranes appeared to be moist. Respiratory: Appears to be respiring comfortably. Neurologic: Nonfocal to gross visualization. Alert and oriented ?3. Psychiatric: No evidence of inappropriate anxiety or depression. Skin: Visible areas of skin without rash, lesions, wounds or petechiae. LABORATORY DATA: Hemoglobin (g/dL) Date Value 09/24/2020 8.3 Hematocrit (%) Date Value 09/24/2020 29.5 WBC (k/uL) Date Value 09/24/2020 6.44 Platelet Count (k/uL) Date Value 09/24/2020 209 ASSESSMENT/PLAN: 1. Iron deficiency anemia due to chronic blood loss - ICD9: 280.0, ICD10: D50.0 (primary diagnosis) History of recurrent iron deficiency anemia secondary to menorrhagia. The patient has not responded to oral iron supplementation in the past, but responds well to IV iron. She most recently received IV Injectafer December 2018. Currently the patient has severe symptomatic iron deficiency anemia. She will receive another dose of IV Injectafer today. We will plan to see her back in 6 weeks for follow-up, labs and possible iron. 2. Menorrhagia - ICD9: 626.2, ICD10: N92.1 The patient has a long history of severe menorrhagia. It has been recommended that she undergo a hysterectomy, but for insurance purposes she has been unable to have this done locally. Patient was seen by Dr. Muñoz and underwent an endometrial biopsy on 09/22/2020. Biopsy showed proliferative endometrium. She is scheduled to have a pelvic ultrasound on 10/09/2020. 3. Acquired hypothyroidism - ICD9: 244.9, ICD10: E03.9 Stable on current medications, continue management per PCP. 4. Exercise-induced asthma - ICD9: 493.81, ICD10: J45.990 The patient uses occasional bronchodilator, overall is minimally symptomatic. Continue management per PCP. 5. Type 2 diabetes mellitus (HCC) - ICD9: 250.00, ICD10: E11.9 Stable on oral medications. Continue management per PCP. Job Weber APRN.TABLEAU ARCHITECT Normal [facility] BASIC METABOLIC PANELon 08-0 Calcium [Mass/Vol] 8.4 mg/dL Low 8.6-10.3 [facility] Comment on above: Order Comment: No: D o not add to previous draw Performed By: #### 3 1079 #### [facility] [address] [place] [address], [place] Chloride [Moles/Vol] 108 mmol/L High 98-107 [facility] Comment on above: Order Comment: No: D o not add to previous draw Performed By: #### 3 1079 #### [facility] [address] [place] [address], [place] CO2 [Moles/Vol] 25 mmol/L Normal 21-31 [facility] Comment on above: Order Comment: No: D o not add to previous draw Performed By: #### 3 1079 #### [facility] [address] [place] [address], [place] Creatinine [Mass/Vol] 0.45 mg/dL Low 0.60-1.20 [facility] Comment on above: Order Comment: No: D o not add to previous draw Performed By: #### 3 1079 #### [facility] [address] [place] [address], [place] GFR/1.73 sq M predicted among blacks MDRD (S/P/Bld) [Vol rate/Area] mL/min/{1.73_m2} Normal >60 [facility] Comment on above: Order Comment: No: D o not add to previous draw Performed By: #### 3 1079 #### [facility] [address] [place] [address], [place] GFR/1.73 sq M predicted among non-blacks MDRD (S/P/Bld) [Vol rate/Area] mL/min/{1.73_m2} Normal >60 [facility] Comment on above: Order Comment: No: D o not add to previous draw Performed By: #### 3 1079 #### [facility] [address] [place] [address], [place] Glucose [Mass/Vol] 123 mg/dL High 70-100 [facility] Comment on above: Order Comment: No: D o not add to previous draw Performed By: #### 3 1079 #### [facility] [address] [place] [address], [place] Potassium [Moles/Vol] 3.7 mmol/L Normal 3.5-5.1 [facility] Comment on above: Order Comment: No: D o not add to previous draw Performed By: #### 3 1079 #### [facility] [address] [place] [address], [place] Sodium [Moles/Vol] 137 mmol/L Normal 136-145 [facility] Comment on above: Order Comment: No: D o not add to previous draw Performed By: #### 3 1079 #### [facility] [address] [place] [address], [place] Urea nitrogen [Mass/Vol] 14 mg/dL Normal 7-25 [facility] Comment on above: Order Comment: No: D o not add to previous draw Performed By: #### 3 1079 #### [facility] [address] [place] [address], [facility] CBC COMPLETE BLOOD COUNTon - Erythrocyte distribution width (RBC) [Ratio] 13.4 % Normal 11.5-15.0 [facility] Comment on above: Order Comment: No: D o not add to previous draw Performed By: #### 3 1079 #### [facility] [address] [place] [address], [place] Hematocrit (Bld) [Volume fraction] 36.6 % Normal 36.0-45.0 [facility] Comment on above: Order Comment: No: D o not add to previous draw Performed By: #### 3 1079 #### [facility] [address] [place] [address], [facility] Hemoglobin (Bld) [Mass/Vol] 11.7 g/dL Low 12.0-15.0 [facility] Comment on above: Order Comment: No: D o not add to previous draw Performed By: #### 3 1079 #### [facility] [address] [facility] [place] [id number], [facility] MCH (RBC) [Entitic mass] 29.2 pg Normal 27.0-33.0 [facility] Comment on above: Order Comment: No: D o not add to previous draw Performed By: #### 3 1079 #### [facility] [address] [facility] [place] [address], [facility] MCHC (RBC) [Mass/Vol] 32.0 g/dL Normal 32.0-35.0 [facility] Comment on above: Order Comment: No: D o not add to previous draw Performed By: #### 3 1079 #### [facility] [address] [facility] [place] [address], [facility] MCV (RBC) [Entitic vol] 91.3 fL Normal 82.0-98.0 [facility] Comment on above: Order Comment: No: D o not add to previous draw Performed By: #### 3 1079 #### [facility] [address] [place] [address], [facility] Nucleated RBC/100 WBC (Bld) [Ratio] 0 % Normal 0-0 [facility] Comment on above: Order Comment: No: D o not add to previous draw Performed By: #### 3 1079 #### [facility] [address] [place] [address], [facility] PLAT CNT 227 10*3/uL Normal 150-400 [facility] Comment on above: Order Comment: No: D o not add to previous draw Performed By: #### 3 1079 #### [facility] [address] [place] [address], [place] RBC (Bld) [#/Vol] 4.01 10*6/uL Normal 3.80-5.00 [facility] Comment on above: Order Comment: No: D o not add to previous draw Performed By: #### 3 1079 #### [facility] [address] [place] [address], [facility] WBC (Bld) [#/Vol] 5.58 10*3/uL Normal 4.00-10.60 [facility] Comment on above: Order Comment: No: D o not add to previous draw Performed By: #### 3 1079 #### [facility] [address] [place] [address], [facility] POC GLUCOSE LABon 04-02-2019 Glucose [Mass/Vol] 135 mg/dL High 70-100 [facility] Comment on above: Performed By: #### 3 1079 #### [facility] [address] [place] [address], [facility] Glucose [Mass/Vol] 124 mg/dL High 70-100 [facility] Comment on above: Performed By: #### 3 1079 #### [facility] [address] [place] [address], [facility] URINALYSIS REFLEXon 04-02-20 19 AMORPHOUS FEW Abnormal NONE SEEN [facility] Comment on above: Order Comment: No: D o not add to previous draw Performed By: #### 3 1079 #### [facility] [address] [place] [address], [facility] Appearance (U) SL CLOUDY Abnormal CLEAR [facility] Comment on above: Order Comment: No: D o not add to previous draw Performed By: #### 3 1079 #### [facility] [address] [place] [address], [place] Bilirubin [Mass/Vol] Negative Normal NEGATIVE [facility] Comment on above: Order Comment: No: D o not add to previous draw Performed By: #### 3 1079 #### [facility] [address] [place] [address], [facility] BLOOD LARGE Abnormal NEGATIVE [facility] Comment on above: Order Comment: No: D o not add to previous draw Performed By: #### 3 1079 #### [facility] [address] [place] [address], [place] Color (U) YELLOW Normal YELLOW [facility] Comment on above: Order Comment: No: D o not add to previous draw Performed By: #### 3 1079 #### [facility] [address] [place] [address], [place] EPIS MANY Abnormal FEW,OCC,NONE SEEN [facility] Comment on above: Order Comment: No: D o not add to previous draw Performed By: #### 3 1079 #### [facility] [address] [place] [address], [place] Glucose [Mass/Vol] Negative Normal NEGATIVE [facility] Comment on above: Order Comment: No: D o not add to previous draw Performed By: #### 3 1079 #### [facility] [address] [place] [address], [facility] KETONE Negative Normal NEGATIVE [facility] Comment on above: Order Comment: No: D o not add to previous draw Performed By: #### 3 1079 #### [facility] [address] [place] [address], [place] LEUK TITI Negative Normal NEGATIVE [facility] Comment on above: Order Comment: No: D o not add to previous draw Performed By: #### 3 1079 #### [facility] [address] [place] [address], [place] MUCUS THREADS FEW Abnormal NONE SEEN [facility] Comment on above: Order Comment: No: D o not add to previous draw Performed By: #### 3 1079 #### [facility] [address] [place] [address], [place] Nitrite Ql (U) Negative Normal NEGATIVE [facility] Comment on above: Order Comment: No: D o not add to previous draw Performed By: #### 3 1079 #### [facility] [address] [place] [address], [facility] pH (Bld) 7.0 Normal 5.0-8.0 [facility] Comment on above: Order Comment: No: D o not add to previous draw Performed By: #### 3 1079 #### [facility] [address] [place] [address], [facility] Protein (U) [Mass/Vol] Negative Normal NEGATIVE [facility] Comment on above: Order Comment: No: D o not add to previous draw Performed By: #### 3 1079 #### [facility] [address] [place] [address], [facility] RBC (U) [#/Vol] 0-2 Abnormal NONE SEEN [facility] Comment on above: Order Comment: No: D o not add to previous draw Performed By: #### 3 1079 #### [facility] [address] [place] [address], [facility] SPEC GRAV 1.017 Normal 1.015-1.020 [facility] Comment on above: Order Comment: No: D o not add to previous draw Performed By: #### 3 1079 #### [facility] [address] [place] [address], [facility] UA COMMENT 2 UROBILINOGEN (E.U./DL) 4.0 Normal [facility] Comment on above: Order Comment: No: D o not add to previous draw Performed By: #### 3 1079 #### [facility] [address] [facility] [place] [address], [facility] WBC UA 0-2 Abnormal NONE SEEN [facility] Comment on above: Order Comment: No: D o not add to previous draw Performed By: #### 3 1079 #### [facility] [address] [place] [address], [facility] BASIC METABOLIC PANELon 08-0 Calcium [Mass/Vol] 8.6 mg/dL Normal 8.6-10.3 [facility] Comment on above: Order Comment: No: D o not add to previous draw Performed By: #### 4 1000, 16272, 35750 #### [facility] [address] [place] [address], [place] Chloride [Moles/Vol] 107 mmol/L Normal 98-107 [facility] Comment on above: Order Comment: No: D o not add to previous draw Performed By: #### 4 1000, 79318, 81442 #### [facility] [address] [place] [address], [place] CO2 [Moles/Vol] 24 mmol/L Normal 21-31 [facility] Comment on above: Order Comment: No: D o not add to previous draw Performed By: #### 4 1000, 96816, 47246 #### [facility] [address] [place] [address], [place] Creatinine [Mass/Vol] 0.50 mg/dL Low 0.60-1.20 [facility] Comment on above: Order Comment: No: D o not add to previous draw Performed By: #### 4 1000, 93787, 51739 #### [facility] [address] [place] [address], [place] GFR/1.73 sq M predicted among blacks MDRD (S/P/Bld) [Vol rate/Area] mL/min/{1.73_m2} Normal >60 [facility] Comment on above: Order Comment: No: D o not add to previous draw Performed By: #### 4 1000, , 22623 #### [facility] [address] [place] [address], [place] GFR/1.73 sq M predicted among non-blacks MDRD (S/P/Bld) [Vol rate/Area] mL/min/{1.73_m2} Normal >60 [facility] Comment on above: Order Comment: No: D o not add to previous draw Performed By: #### 4 1000, 21233, 89528 #### [facility] [address] [place] [address], [place] Glucose [Mass/Vol] 106 mg/dL High 70-100 [facility] Comment on above: Order Comment: No: D o not add to previous draw Performed By: #### 4 1000, , 12455 #### [facility] [address] [place] [address], [place] Potassium [Moles/Vol] 3.3 mmol/L Low 3.5-5.1 [facility] Comment on above: Order Comment: No: D o not add to previous draw Performed By: #### 4 1000, , 25117 #### [facility] [address] [place] [address], [place] Sodium [Moles/Vol] 139 mmol/L Normal 136-145 [facility] Comment on above: Order Comment: No: D o not add to previous draw Performed By: #### 4 1000, , 47256 #### [facility] [address] [place] [address], [place] Urea nitrogen [Mass/Vol] 11 mg/dL Normal 7-25 [facility] Comment on above: Order Comment: No: D o not add to previous draw Performed By: #### 4 1000, , 68912 #### [facility] [address] [place] [address], [place] CBC COMPLETE BLOOD COUNTon 0 - Erythrocyte distribution width (RBC) [Ratio] 13.5 % Normal 11.5-15.0 [facility] Comment on above: Order Comment: No: D o not add to previous draw Performed By: #### 5 0608, 25891 #### [facility] [address] [place] [address], [place] Hematocrit (Bld) [Volume fraction] 36.7 % Normal 36.0-45.0 [facility] Comment on above: Order Comment: No: D o not add to previous draw Performed By: #### 5 607, 63093 #### [facility] [address] [place] [address], [facility] Hemoglobin (Bld) [Mass/Vol] 11.9 g/dL Low 12.0-15.0 [facility] Comment on above: Order Comment: No: D o not add to previous draw Performed By: #### 5 607, 96272 #### [facility] [address] [place] [address], [facility] MCH (RBC) [Entitic mass] 29.0 pg Normal 27.0-33.0 [facility] Comment on above: Order Comment: No: D o not add to previous draw Performed By: #### 5 607, 78823 #### [facility] [address] [place] [address], [facility] MCHC (RBC) [Mass/Vol] 32.4 g/dL Normal 32.0-35.0 [facility] Comment on above: Order Comment: No: D o not add to previous draw Performed By: #### 5 607, 97791 #### [facility] [address] [place] [address], [facility] MCV (RBC) [Entitic vol] 89.5 fL Normal 82.0-98.0 [facility] Comment on above: Order Comment: No: D o not add to previous draw Performed By: #### 5 607, 85602 #### [facility] [address] [place] [address], [facility] Nucleated RBC/100 WBC (Bld) [Ratio] 0 % Normal 0-0 [facility] Comment on above: Order Comment: No: D o not add to previous draw Performed By: #### 5 607, 09680 #### [facility] [address] [place] [address], [facility] PLAT CNT 226 10*3/uL Normal 150-400 [facility] Comment on above: Order Comment: No: D o not add to previous draw Performed By: #### 5 0608, 66292 #### [facility] [address] [facility] [place] [address], [facility] RBC (Bld) [#/Vol] 4.10 10*6/uL Normal 3.80-5.00 [facility] Comment on above: Order Comment: No: D o not add to previous draw Performed By: #### 5 0608, 88879 #### [facility] [address] [place] [address], [facility] WBC (Bld) [#/Vol] 7.18 10*3/uL Normal 4.00-10.60 [facility] Comment on above: Order Comment: No: D o not add to previous draw Performed By: #### 5 0608, 34113 #### [facility] [address] CRP HIGH SENSITIVITYon 04-01 HIGH SENSITIVITY CRP 4.39 mg/L Normal [facility] Comment on above: Order Comment: No: D o not add to previous draw Result Comment: HIGH SENSITIVITY CRP (hs_CRP) REFERENCE RANGES Less than 1.0 mg/L: lowest tertile, lowest risk 1.0-3.0 mg/L: middle tertile, average risk Greater than 3.0 mg/L: highest tertile, highest risk Performed By: #### 3 1079 #### [facility] [address] BRAIN WO CONTRASTon 04-01 CT BRAIN WO CONTRAST [facility] Department of Radiology [address] [place] [address] [phone] Patient Name: APRYL DOWNS : 1980 Sex: F Age: Race: Other Pt. Location: [id number] Patient Status: I Ordered Date: 04/01/2019 3:00:00 PM Completed Date: 04/01/2019 03:31 PM Requesting Provider: STEF NAZARIO Attending Provider: STEF NAZARIO Report Copy To: Signs & Symptoms: Stroke(CVA) History: See Comments Comments: R/O CVA Exam: CT BRAIN WO CONTRAST CT BRAIN WO CONTRAST 04/01/2019 3:31 PM EDT SIGNS AND SYMPTOMS: Stroke(CVA) TECHNOLOGIST COMMENTS: 24 hour post TPA QUESTION FOR THE RADIOLOGIST: R/O CVA PROTOCOL: Axial CT images of the head were obtained without IV contrast. TECHNIQUE:Multi-dete ctor CT axial slices of the brain were obtained without IV contrast. Helical,sagittal, coronal, and 3-D reconstructions were performed and viewed on a separate workstation. Appropriate CT dose lowering techniques were utilized. COMPARISON: MR brain and CT brain March 31, 2019 FINDINGS: There is no shift of the midline structures, acute intracranial bleeding, mass effects, or evidence of acute ischemia. The ventricular system is normal in size. The brainstem and the cerebellum are unremarkable. The visualized intraorbital contents, the visualized paranasal sinuses, and the infratemporal soft tissues show no acute abnormality. The osseous structures in the skull base and the calvarium show no abnormality. IMPRESSION: No acute intracranial abnormality. No evidence of acute intracranial bleeding or interval change since prior study Approved by:Ryan Gonzalez on 04/02/2019 5:48 AM EDT. I, Alice Coello, have reviewed the images and report and concur with these findings. Electronically signed by:Alice Coello. Transcribed by: [email or web address], User Resident: RYAN GONZALEZ Electronically Signed by: ALICE COELLO @ 04/02/2019 08:59 AM I personally read this/these film(s) with this resident Normal [facility] Comment on above: Order Comment: No: D o not add to previous draw MAGNESIUM BLOODon 04-01-2019 Magnesium [Mass/Vol] 2.2 mg/dL Normal 1.9-2.7 [facility] Comment on above: Order Comment: No: D o not add to previous draw Performed By: #### 4 1000, [id number], [id number] #### [facility] [address] [place] [address], [facility] PHOSPHORUS BLOODon 9 Phosphate [Mass/Vol] 3.9 mg/dL Normal 2.5-5.0 [facility] Comment on above: Order Comment: No: D o not add to previous draw Performed By: #### 4 1000, [id number], [id number] #### [facility] [address] [place] [address], [facility] POC GLUCOSE LABon 04-01-2019 Glucose [Mass/Vol] 120 mg/dL High 70-100 [facility] Comment on above: Performed By: #### 3 1079 #### [facility] [address] [place] [address], [facility] SEDIMENTATION RATEon 019 SED RATE 23 mm/hr High 0-20 [facility] Comment on above: Order Comment: No: D o not add to previous draw Performed By: #### 5 0608, [id number] #### [facility] [address] [place] [address], [facility] CT BRAIN PERFUSIONon 019 CT BRAIN PERFUSION [facility] Department of Radiology [address] [place] [address] [phone] Patient Name: APRYL DOWNS : 1980 Sex: F Age: Race: Other Pt. Location: OUTP Patient Status: D Ordered Date: 03/31/2019 2:40:00 PM Completed Date: 03/31/2019 04:08 PM Requesting Provider: AKIN ISABEL Attending Provider: STEF NAZARIO Report Copy To: Signs & Symptoms: Stroke transfer, lt side weakness History: Stroke transfer, lt side weakness Comments: Stroke transfer, lt side weakness Exam: CT BRAIN PERFUSION CT BRAIN PERFUSION 03/31/2019 4:08 PM EDT SIGN AND SYMPTOMS: Stroke transfer, lt side weakness TECHNOLOGIST COMMENTS: stroke alert from draper su weakness all over aphasic QUESTION FOR RADIOLOGIS: Stroke transfer, lt side weakness PROTOCOL: Axial CT angiography images were obtained with IV contrast. CONTRAST: Contrast: OMNIPAQUE 350 (LOCM), 50 milliliter, Intravenous TECHNIQUE: Multidetector CT axial slices of the brain were obtained without IV contrast. Sagittal, coronal, and 3-D reconstructions were performed and viewed on a separate workstation. Dynamic acquisition CT perfusion images were obtained in 18 seperate phases during and after administration of 50 mL Omnipaque 350 intravenously. Arterial and venous time activity curves were generated with regions of interest drawn over the arterial and venous circulations. Color maps for mean transit time, cerebral blood flow, cerebral perfusion, and time to peak perfusion were generated in the axial plane. Dynamic 3-D CT angiography images were reconstructed in sagittal coronal and axial plane and viewed on a separate workstation. Appropriate CT dose lowering techniques were utilized. COMPARISON: None. FINDINGS: Please see report for dictation number [id number] CTA neck CTA brain and perfusion were all dictated together Electronically signed by:tEta Irvin. Transcribed by: [email or web address], User Resident: Electronically Signed by: ETTA IRVIN @ 04/09/2019 10:35 AM Normal [facility] Comment on above: Order Comment: No: D o not add to previous draw CTA NECKon 03-31-2019 CTA NECK [facility] Department of Radiology [address] [place] [phone] Patient Name: APRYL DOWNS : 1980 Sex: F Age: Race: Other Pt. Location: OUTP Patient Status: I Ordered Date: 03/31/2019 2:40:00 PM Completed Date: 03/31/2019 04:09 PM Requesting Provider: AKIN ISABEL Attending Provider: STEF NAZARIO Report Copy To: Signs & Symptoms: Stroke transfer, lt side weakness History: Stroke transfer, lt side weakness Comments: Stroke transfer, lt side weakness Exam: CTA NECK CTA NECK 03/31/2019 4:09 PM EDT SIGNS AND SYMPTOMS: Stroke transfer, lt side weakness TECHNOLOGIST COMMENTS: stroke alert pt aphasic and unable to move at all QUESTION FOR THE RADIOLOGIST: Stroke transfer, lt side weakness PROTOCOL: Axial CT angiography images were obtained with IV contrast. CONTRAST: Contrast: OMNIPAQUE 350 (LOCM), 100 milliliter, Intravenous TECHNIQUE: Multi-detector CT angiography axial slices of the neck were obtained during intravenous administration of IV contrast material. Sagittal, coronal, and 3-D reconstructions were performed and viewed on a separate workstation. Appropriate CT dose lowering techniques were utilized. COMPARISON: None. FINDINGS: Noncontrast CT: Actos and sulci are age-appropriate. No mass, mass effect or midline shift. No intracranial hemorrhage. No CT evidence of acute cortical infarct. Skull and paranasal sinuses unremarkable area CTA HEAD: Internal carotid arteries and skull base are normal. Internal carotid arteries in the cavernous sinuses are normal. Right middle cerebral artery is normal. The left middle cerebral artery is normal. Anterior cerebral arteries are normal anterior communicating artery is visualized. Vertebral arteries at the skull base are normal both posterior inferior cerebellar arteries are visualized. Basilar artery normal. Both superior cerebellar arteries are normal.[H the left posterior cerebral artery is normal. The left posterior cerebral artery is normal. CTA NECK: Origin of both common carotid arteries are normal. Proximal mid and distal portions of both common carotid arteries are normal. Carotid bulbs are widely patent proximal mid and distal portions of both internal carotid arteries are patent to the skull base. Arteries are normal. Three-vessel aortic arch. Lung apices normal. Thoracic inlet is normal. Cervical spine is normal. CT PERFUSION: No areas of abnormal mean transit time identified Time to peak perfusion appears symmetric Cerebral blood volume appears symmetric Cerebral blood flow appears symmetric. IMPRESSION: No intracranial hemorrhage. No CT evidence of acute infarct No significant stenosis or occlusion in the intracranial circulation or in the carotid or vertebral circulation in the neck. No perfusion abnormality Electronically signed by:Etta Irvin. Transcribed by: [email or web address], User Resident: Electronically Signed by: ETTA IRVIN @ 03/31/2019 04:31 PM Normal [facility] Comment on above: Order Comment: Strok e transfer, lt side weakness MRI BRAIN W WO CONTRASTon MRI BRAIN W WO CONTRAST [facility] Department of Radiology [address] [place] [phone] Patient Name: APRYL DOWNS : 1980 Sex: F Age: Race: Other Pt. Location: [place] [address] Patient Status: I Ordered Date: 03/31/2019 4:10:00 PM Completed Date: 03/31/2019 07:39 PM Requesting Provider: STEF NAZARIO Attending Provider: STEF NAZARIO Report Copy To: Signs & Symptoms: Stroke (CVA) History: See Comments Comments: R/O CVA Exam: MRI BRAIN W WO CONTRAST MRI BRAIN W WO CONTRAST 03/31/2019 7:41 PM EDT SIGN AND SYMPTOMS: Stroke (CVA) TECHNOLOGIST COMMENTS: Patient came to ER with left side numbness and tingling and now is unable to move any body part and is non responsive. QUESTION FOR RADIOLOGIST: R/O CVA PROTOCOL: The following pulse sequences were utilized when imaging the brain: sagittal T1, diffusion weighted imaging, axial T2 FLAIR, axial T2 fat-sat, axial T1, axial GRE. Post contrast imaging in sagittal 3D and axial 3D. CONTRAST: Contrast: DOTAREM, 15 milliliter, Intravenous COMPARISON: CTA neck and CT brain perfusion March 31, 2019. FINDINGS: Extra axial spaces: Age appropriate. Hemorrhage: None. Incidental mineralization of bilateral basal ganglia. Ventricular system: Within normal limits. Basal cisterns: Within normal limits and not effaced. Cerebral parenchyma: There are a few scattered areas of T2 hyperintensities within the subcortical white matter and centrum semiovale bilaterally. Arterial spin labeling images show asymmetric hypoperfusion of the right cerebral hemisphere. Midline shift: None. Cerebellum: Within normal limits. Brainstem: Within normal limits. OTHER: Calvarium: Normal marrow signal. Vascular system: Satisfactory flow voids within the anterior and posterior circulation. Visualized Paranasal sinuses: Nonaggressive mucosal thickening within the maxillary sinuses and ethmoid air cells. Visualized Orbits: Within normal limits. Visualized upper cervical spine: Within normal limits. Sella and skull base: Within normal limits. IMPRESSION: 1. Few scattered areas of T2 hyperintensities within the subcortical white matter, this is nonspecific finding and may represent migraines, demyelinating disease or vasculitis. 2. ASL images demonstrate asymmetric hypoperfusion of the right cerebral hemisphere, this is nonspecific and may represent hemiplegic migraine in the appropriate clinical setting. 3. Paranasal sinus disease. Approved by:Vickie Ellis on 03/31/2019 8:54 PM EDT. I, Etta Irvin, have reviewed the images and report and concur with these findings. Electronically signed by:Etta Irvin. Transcribed by: [email or web address], User Resident: VICKIE ELLIS Electronically Signed by: ETTA IRVIN @ 04/01/2019 09:56 AM I personally read this/these film(s) with this resident Normal [facility] Comment on above: Order Comment: R/O C [facility] MRI CERVICAL SPINE W WO CONT [facility] 03-31-2019 MRI CERVICAL SPINE W WO CONTRAST [facility] Department of Radiology [address] [place] [phone] Patient Name: APRYL DOWNS : 1980 Sex: F Age: Race: Other Pt. Location: [place] [address] Patient Status: I Ordered Date: 03/31/2019 4:05:00 PM Completed Date: 03/31/2019 07:41 PM Requesting Provider: STEF NAZARIO Attending Provider: STEF NAZARIO Report Copy To: Signs & Symptoms: Paralysis (specify) History: See Comments Comments: R/O Cord Compression Exam: MRI CERVICAL SPINE W WO CONTRAST MRI CERVICAL SPINE W WO CONTRAST 03/31/2019 7:41 PM EDT SIGNS AND SYMPTOMS: Paralysis (specify) TECHNOLOGIST COMMENTS: Patient came to ER with left side numbness and tingling and now is unable to move any body part and is non responsive. QUESTION FOR THE RADIOLOGIST: R/O Cord Compression PROTOCOL: The following pulse sequences were utilized when imaging the cervical spine: sagittal T2, sagittal T1, sagittal STIR, axial T2, and axial T1. Post contrast images obtained in sagittal T1, sagittal T1 fat-sat, and axial T1. CONTRAST: Contrast: DOTAREM, 15 milliliter, Intravenous COMPARISON: None. FINDINGS: The bones of the cervical spine are in anatomic alignment. There is preservation of vertebral body heights and intervertebral disc spaces. The marrow signals within normal limits. The cord is normal in signal. No epidural or paraspinous fluid collection is appreciated. The visualized paraspinous soft tissues are within normal limits. The prevertebral soft tissues are within normal limits. Mucosal thickening within the right maxillary sinus. No abnormal post contrast enhancement. At C2-C3: There is a normal disc, central canal, and neural foramen. At C3-C4: There is a normal disc, central canal, and neural foramen. At C4-C5: There is a mild central disc protrusion. No central canal or neural foramen narrowing. At C5-C6: There is a broad-based disc bulge. No central canal or neural foramen narrowing. At C6-C7: There is a broad-based disc bulge. No central canal or neural foramen narrowing. At C7-T1: There is a normal disc, central canal, and neural foramen. IMPRESSION: 1. There is mild disc disease from C4 to C7. No central canal or neural foramen narrowing. 2. Normal cord signal. No abnormal post contrast enhancement. Approved by:Vickie Ellis on 03/31/2019 10:00 PM EDT. I, Etta Irvin, have reviewed the images and report and concur with these findings. Electronically signed by:Etta Irvin. Transcribed by: [email or web address], User Resident: VICKIE ELLIS Electronically Signed by: ETTA IRVIN @ 04/01/2019 09:53 AM I personally read this/these film(s) with this resident Normal [facility] Comment on above: Order Comment: R/O C ord Compression POC GLUCOSE LABon 03-31-2019 Glucose [Mass/Vol] 118 mg/dL High 70-100 [facility] Comment on above: Performed By: #### 8 5499 #### [facility] [address] [place] [address], [facility] TOX PANEL URINEon 03-31-2019 50 THC Negative Normal NEGATIVE [facility] Comment on above: Order Comment: No: D o not add to previous draw Performed By: #### 3 1079 #### [facility] [address] [place] [address], [facility] BARBITURATES Negative Normal NEGATIVE [facility] Comment on above: Order Comment: No: D o not add to previous draw Performed By: #### 3 1079 #### [facility] [address] [place] [address], [facility] Benzodiazepines Ql (U) Negative Normal NEGATIVE [facility] Comment on above: Order Comment: No: D o not add to previous draw Performed By: #### 3 1079 #### [facility] [address] [place] [address], [facility] Cocaine Ql (U) Negative Normal NEGATIVE [facility] Comment on above: Order Comment: No: D o not add to previous draw Performed By: #### 3 1079 #### [facility] [address] [facility] [place] [address], [facility] Methadone Ql (U) Negative Normal NEGATIVE [facility] Comment on above: Order Comment: No: D o not add to previous draw Performed By: #### 3 1079 #### [facility] [address] [place] [address], [facility] MONO AMPHET Negative Normal NEGATIVE [facility] Comment on above: Order Comment: No: D o not add to previous draw Performed By: #### 3 1079 #### [facility] [address] [place] [address], [place] Opiates Ql (U) Negative Normal NEGATIVE [facility] Comment on above: Order Comment: No: D o not add to previous draw Performed By: #### 3 1079 #### [facility] [address] [place] [address], [place] Phencyclidine Ql (U) Negative Normal NEGATIVE [facility] Comment on above: Order Comment: No: D o not add to previous draw Performed By: #### 3 1079 #### [facility] [address] [place] [address], [place] PROPOXYPHENE Negative Normal NEGATIVE [facility] Comment on above: Order Comment: No: D o not add to previous draw Performed By: #### 3 1079 #### [facility] [address] [place] [address], [place] TRICYCLICS Negative Normal NEGATIVE [facility] Comment on above: Order Comment: No: D o not add to previous draw Performed By: #### 3 6219 #### [facility] [address] [place] [address], [place] Vital Signs Date Time Vital Sign Value Performing Clinician Facility 06-14-2023 10:30-0400 Body height 161.29 cm Amanda Villafana Other [facility] Other 06-14-2023 10:30-0400 Body mass index (BMI) [Ratio] 33.13 kg/m2 Amanda Villafana Other [facility] Other 06-14-2023 10:30-0400 Body weight 86.18 kg Amanda Villafana Other [facility] Other 06-14-2023 10:30-0400 Diastolic blood pressure 84 mm[Hg] Amanda Villafana Other [facility] Other 06-14-2023 10:30-0400 Systolic blood pressure 129 mm[Hg] Amanda Villafana Other [facility] [employer] Other 02-04-2022 21:00-0400 Diastolic blood pressure 95 mm[Hg] Pete Joel [facility] 02-04-2022 21:00-0400 Heart rate 78 /min Pete Joel [facility] 02-04-2022 21:00-0400 Hourly Rounding Pete Joel [facility] 02-04-2022 21:00-0400 Mean blood pressure 126 mm[Hg] Pete Joel [facility] 02-04-2022 21:00-0400 Promise to Return Pete Joel [facility] 02-04-2022 21:00-0400 Respiratory rate 14 /min Pete Joel [facility] 02-04-2022 21:00-0400 SaO2% (BldA) [Mass fraction] 99 % Pete Joel [facility] 02-04-2022 21:00-0400 Systolic blood pressure 189 mm[Hg] Pete Joel [facility] 02-04-2022 20:00-0400 Diastolic blood pressure 94 mm[Hg] Pete Joel [facility] 02-04-2022 20:00-0400 Heart rate 77 /min Pete Joel [facility] 02-04-2022 20:00-0400 Mean blood pressure 125 mm[Hg] Pete Joel [facility] 02-04-2022 20:00-0400 Systolic blood pressure 187 mm[Hg] Pete Joel [facility] 02-04-2022 19:00-0400 Diastolic blood pressure 85 mm[Hg] Pete Maldonado [facility] 02-04-2022 19:00-0400 Heart rate 74 /min Pete Maldonado [facility] 02-04-2022 19:00-0400 Mean blood pressure 114 mm[Hg] Pete Maldonado [facility] 02-04-2022 19:00-0400 Respiratory rate 11 /min Pete Maldonado [facility] 02-04-2022 19:00-0400 SaO2% (BldA) [Mass fraction] 97 % Pete Maldonado [facility] 02-04-2022 19:00-0400 Systolic blood pressure 172 mm[Hg] Pete Maldonado [facility] 02-04-2022 18:22-0400 gluc 146 mg/dL Pete Maldonado [facility] 02-04-2022 18:22-0400 gluc Pete Maldonado [facility] 02-04-2022 17:55-0400 Body temperature 98.24 [degF] Pete Maldonado [facility] 02-04-2022 17:55-0400 Heart rate 76 /min Pete Maldonado [facility] 02-04-2022 17:55-0400 Respiratory rate 18 /min Pete Maldonado [facility] Encounters Encounter Date Encounter Type Care Provider Facility Start: 08-24-2023 ambulatory Mateo ALVA Facility :[facility] Start: 08-05-2023 ambulatory AUSTIN MURPHY Facility: [facility] Start: 08-04-2023 Telephone encounter Amanda Villafana [facility] Start: 08-04-2023 End: 08-04-2023 ambulatory Amanda Villafana Other [facility] Other Start: 07-05-2023 End: 07-05-2023 ambulatory Amanda Villafana Other [facility] Other Start: 07-05-2023 Telephone encounter Amnada Villafana [facility] Start: 06-28-2023 End: 06-28-2023 ambulatory Amanda Villafana Other [facility] Other Start: 06-28-2023 Telephone encounter Amanda Villafana [facility] Start: 06-27-2023 End: 06-27-2023 ambulatory Amanda Villafana Other [facility] Other Start: 06-27-2023 Telephone encounter Amanda Villafana [facility] Start: 06-23-2023 End: 06-23-2023 ambulatory Amanda Villafana Other [facility] Other Start: 06-23-2023 Telephone encounter Amanda Villafana [facility] Start: 06-14-2023 End: 06-14-2023 ambulatory Amanda Villafana Other [facility] Other Start: 06-14-2023 Office outpatient vi sit 15 minutes Amanda Villafana [facility] Start: 05-31-2023 End: 05-31-2023 ambulatory Amanda Villafana Other [facility] Other Start: 05-31-2023 Telephone encounter Amanda Villafana [facility] Start: 03-08-2023 End: 03-09-2023 ambulatory AUSTIN MURPHY Facility:[facility] Start: 03-08-2023 End: 03-08-2023 Patient encounter procedure AUSTIN MURPHY [facility] Start: 12-13-2022 End: 12-22-2022 Pre-admission assessment AUSTIN MURPHY [facility] Start: 12-12-2022 End: 12-12-2022 ambulatory TRESA MURPHY Facility:[facility] Start: 11-29-2022 End: 11-30-2022 ambulatory TRESA MURPHY Facility:[facility] Start: 10-13-2022 ambulatory TRESA MURPHY Facil ity:[facility] Start: 09-14-2022 End: 09-15-2022 ambulatory TRESA MURPHY Facility:[facility] Start: 06-09-2022 End: 06-10-2022 ambulatory TRESA MURPHY Facility:[facility] Start: 05-06-2022 End: 05-26-2022 Pre-admission assessment AUSTIN Bullock JANNYDEAN [facility] Start: 02-15-2022 End: 02-16-2022 ambulatory TRESA MURPHY Facility:[facility] Start: 02-04-2022 End: 02-04-2022 Emergency department patient visit Pete Maldonado [facility] Start: 12-31-2021 End: 12-31-2021 ambulatory TRESA MURPHY Facility:[facility] Start: 03-31-2019 End: 04-02-2019 Evaluation and management of inpatient PROVIDER UNKNOWN Facility:[facility] Procedures Date Procedure Procedure Detail Performing Clinician section Pete Maldonado section Pete Maldonado H/O: tubal ligation Pete sigala Payers Date Payer Category Payer Unknown [id number] 2.16.8 [id number] 1980 Unknown [id number] 2.16.84 [id number] 1980 Unknown [id number] 2.16.84 [id number] 1980 Unknown [id number] 2.16.84 [id number] 1980 Unknown [id number] 2.16.84 [id number] 1980 Unknown [id number] 2.16.84 [id number] 1980 Unknown [id number] 2.16.84 [id number] 1980 Unknown [id number] 2.16.84 [id number] 1980 Unknown [id number] 2.16.8 [id number] 1980 Unknown [id number] 2.16.8 [id number] 1980 Unknown [id number] 2.16.8 [id number] 1959 Unknown [id number] 1961 Unknown [id number] Social History Date Type Detail Facility Tobacco Unknown if ever smoked [facility] Comment on above: denies Sex Assigned At Female [facility] Tobacco smoking status No Smokin g Status Entered [facility] Clinical Notes 11-07-2020 to 07-05-2023 Note Date & Type Note Facility 07-05-2023 Evaluation note Encounter Date Diagnosis Assessment Notes Jun, Other iron deficiency anemia (ICD-10 - D50.8) [facility] Other 10-31-2023 Evaluation note* Encounter Date Diagnosis Assessment Notes Treatment Notes Treatment Clinical Notes [place], Type 2 diabetes mellitus with hyperglycemia, without long-term current use of insulin (ICD-10 - E11.65) [facility] Other 10-30-2023 Evaluation note* Encounter Date Diagnosis Assessment Notes Treatment Notes Treatment Clinical Notes [place], Type 2 diabetes mellitus with hyperglycemia, without long-term current use of insulin (ICD-10 - E11.65) [facility] Other 10-17-2023 Evaluation note* Encounter Date Diagnosis Assessment Notes Treatment Notes Treatment Clinical Notes [place], Other iron deficiency anemia (ICD-10 - D50.8) obtain labs. recheck due to fatigue [place], Type 2 diabetes mellitus with hyperglycemia, without long-term current use of insulin (ICD-10 - E11.65) Due for A1C will reach out to [facility] lenora caruso. Presently it is covered, but her glucose of 220 indicates dose increase. Will sent paperwork for PA again. [facility] Other 10-03-2023 Evaluation note* Encounter Date Diagnosis Assessment Notes Treatment Notes Treatment Clinical Notes [place], Type 2 diabetes mellitus with hyperglycemia, without long-term current use of insulin (ICD-10 - E11.65) [facility] 07-11-2023 Evaluation + Plan note Diagnostic Tests Pending * T3 Free 03/08/23 [facility]06-01-2023 History general Narrative - Reported* Type Description Date Medical History DM Medical History hypothyroid Medical History Anemia Surgical History C SECTION X's 2 Surgical History Left Oophorectomy 01/2023 Hospitalization History SEE ABOVE SURGERY [facility] Other 03-12-2021 NotePatient Outreach ([facility]) APRYL DOWNS ([id number]) 1980 F Date Time Provider Department 11/07/20 [facility] During your visit today, we recorded the following information about you: Allergies As of Date: 11/07/2020 Noted Allergy Reaction OXYCODONE-ACETAMINOPHEN 09/09/2020 2 - Rash Comments: Has tolerated norco in the past Date Reviewed: 10/03/2020 Reviewed by: Bharti Galvan) Zavala, RN - Fully Assessed Order(s):SARS-COVID VACCINE 1ST DOSE APPT [[id number]] Order #: [id number] FUTURE Prescriptions as of 11/07/2020 Sig: METFORMIN 500 MG TABLET Take 500 mg by mouth twice da* IRON SUCROSE IV INFUSION IN N* Inject intravenously. ONDANSETRON HCL 8 MG TABLET Take 1 tablet by mouth every * ALBUTEROL SULFATE HFA 90 MCG/* TAKE 1 TO 2 PUFFS PRIOR TO EX* ASPIRIN 81 MG TABLET,DELAYED * LEVOTHYROXINE 150 MCG TABLET Take 150 mcg by mouth once da* ONDANSETRON 8 MG DISINTEGRATI* dissolve 1 tablet ON TONGUE e* Problem List As Of Date 11/07/2020 Noted Resolved Iron deficiency anemia due to chronic blood los*09/09/2020 More... 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 Systolic murmur [R01.1] 10/02/2020 Heart murmur [R01.1] 10/02/2020 More... Patient is Christian [Z78.9] 10/02/2020 More... Encounter Status:Closed by EPIC, PRODUSER on 11/10/20[facility] Evaluation + Plan note No data available for this section [facility] [employer] Other Hospital Discharge instructions No data available for this section [facility] No data available for this section [facility] Summary Purpose Family History No Family History Records FoundNo Family History Records FoundNo Family History Records FoundNo Family History Records FoundNo Family History Records FoundNo Family History Records Found Advance Directives No Advanced Directives Records FoundNo Advanced Directives Records FoundNo Advanced Directives Records FoundNo Advanced Directives Records FoundNo Advanced Directives Records FoundNo Advanced Directives Records Found Hospital Course Note MR#: [id number] [facility] Pt. Name: Apryl Downs Admitted: 03/31/2019 Discharged: 04/02/2019 Date of : 1980 Physician: London Ramirez MD DISCHARGE SUMMARY PRIMARY CARE PHYSICIAN: Unknown. PRINCIPAL PROBLEMS: 1. 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 2. Suspected stroke, status post tPA - ruled out. 3. Global aphasia - resolved. SECONDARY DIAGNOSES: 1. Essential hypertension. 2. Hypothyroidism. 3. Obesity. 4. Hyperlipidemia. 5. Chronic insomnia. 6. Restless legs syndrome. 7. Chronic sinusitis. 8. History of gestational diabetes. 9. History of systolic murmur. 10. History of questionable asthma. CONSULTANTS: Stroke and ICU. HOSPITAL COURSE: This is a 38-year-old female, who presented to [facility] with complaints of left-sided weakness and facial droop. The patient states she had driven herself to the emergency department. The patient states that she was at work when she st (more content not included)... Note HNO ID: [id number] Author: Anjali Muñoz Service: Gynecology Author Type: Physician Type: Brief Op Note Filed: 10/03/2020 8:14 AM Note Text: BRIEF OPERATIVE / PROCEDURE NOTE LOG ID: [id number] SURGERY/PROCEDURE DATE: 10/03/2020 INCISION/PROCEDURE START TIME: 7:57 AM INCISION CLOSE/PROCEDURE END TIME: 8:07 AM SURGEON(S)/PROCEDURALIST(S) AND SAP ANALYST(S): Surgeon(s) and Role: * Ayah Muñoz - Primary No Additional Staff SURGERY/PROCEDURE(S): HSC'c ablation, DANDC. ANESTHESIA: Monitored Anesthesia Care FINDINGS: Thickened endometrium ESTIMATED BLOOD LOSS: 5 mls SPECIMENS: ECC, EMC COMPLICATIONS: None PRE-OP/PRE-PROCEDURE DIAGNOSIS: menorrhagia POST-OP/POST-PROCEDURE DIAGNOSIS: Same as Preop SIGNATURE: Ayah Muñoz MD PATIENT NAME: Apryl Downs DATE: October 03, 2020 TIME: 8:13 AM PAGER/CONTACT #: I was scrubbed and performed the entire case. There was not a resident for assistance during the case. Procedure Findings Note HNO ID: [id number] Author: F irma S Bashour Service: Gynecology Author Type: Physician Type: Brief Op Note Filed: 10/03/2020 8:14 AM Note Text: BRIEF OPERATIVE / PROCEDURE NOTE LOG ID: [id number] SURGERY/PROCEDURE DATE: 10/03/2020 INCISION/PROCEDURE START TIME: 7:57 AM INCISION CLOSE/PROCEDURE END TIME: 8:07 AM SURGEON(S)/PROCEDURALIST(S) AND SAP ANALYST(S): Surgeon(s) and Role: * Ayah Muñoz - Primary No Additional Staff SURGERY/PROCEDURE(S): HSC'c ablation, DANDC. ANESTHESIA: Monitored Anesthesia Care FINDINGS: Thickened endometrium ESTIMATED BLOOD LOSS: 5 mls SPECIMENS: ECC, EMC COMPLICATIONS: None PRE-OP/PRE-PROCEDURE DIAGNOSIS: menorrhagia POST-OP/POST-PROCEDURE DIAGNOSIS: Same as Preop SIGNATURE: Ayah Muñoz MD PATIENT NAME: Apryl Downs DATE: October 03, 2020 TIME: 8:13 AM PAGER/CONTACT #: I was scrubbed and performed the entire case. There was not a resident for assistance during the case. Reason for Referral Reason iron defiency Diagnosis 1 Other iron deficienc y anemia (D50.8) Referral Organization [facility] emilee Referring Provider First Name Amanda Referring Provider Last Name Villafana Referring Provider Specialty [facility] Referred Organization [facility] Referred Address [address] [place], [place],[address] Referred Provider Specialty Hematology Referral Priority Routine Additional Source Comments INFORMATION SOURCE (unrecogn ized section and content) DATE CREATED AUTHOR 04/28/2019 [facility] DATE CREATED AUTHOR AUTHOR'S ORGANIZ ATION 10/07/2020 [facility] DATE CREATED AUTHOR AUTHOR'S ORGANIZ ATION 10/07/2020 [facility] DATE CREATED AUTHOR AUTHOR'S ORGANIZ ATION 10/03/2021 [facility] DATE CREATED AUTHOR AUTHOR'S ORGANIZ ATION 12/15/2022 [facility] DATE CREATED AUTHOR AUTHOR'S ORGANIZ ATION 08/25/2023 [facility] (unrecognized sect ion and content) No Status Records FoundNo Status Records Found Care Team (unrecognized sect ion and content) Personnel Name: KELLY SAENZ CNP Address: [address] [place] [address] [place] [address]- Name: Manolosanna REID [facility] Personnel Name: JOSUE TRESADAIANAN Address: Address: [address] [place], [place] [address] [address]- Name: Beverly Cihlders [place] Personnel Name: JANNYGalKEHeber TRESAAUSTIN Address: Address: [address] [facility] [place] [address] Name: Manolosanna REID [facility] REASON FOR VISIT (unrecogniz ed section and content) [id number] month Follow up FOR RECORDS PERTAINING TO PATIENTS WHO ARE OR HAVE BEEN ENROLLED IN A CHEMICAL DEPENDENCY/SUBSTANCEABUSE PROGRAM, SOME INFORMATION MAY BE OMITTED. This clinical summary was aggregated from multiple sources. Caution should be exercised in using it in the provision of clinical care. This summary normalizes information from multiple sources, and as a consequence, information in this document may materially change the coding, format and clinical context of patient data. In addition, data may be omitted in some cases. CLINICAL DECISIONS SHOULD BE BASED ON THE PRIMARY CLINICAL RECORDS. [facility] provides no warranty or guarantee of the accuracy or completeness of information in this document.
[2023-09-02 21:48] VITALS: BP 150/90; PULSE 90; RESP 16; TEMP 36.5; O2SAT 100; BMI 32.6
--- NOTE | 2023-09-02 21:58 | ED.GENADUL1 ---
HPI - General Adult General Chief complaint: Headache Stated complaint: Migraine/Headache Time Seen by Provider: 09/02/23 21:48 Source: patient Mode of arrival: walk-in Limitations: no limitations History of Present Illness HPI narrative: 43-year-old female presents for headache. It started last night and it's at the top of her head. No trauma fever or stiff neck. Light makes it worse. This is just like previous migraine headaches that she's had. She took a mitral [facility] but it didn't seem to help. It's been continuous and it's severe. Related Data Home Medications Medication Instructions Recorded Confirmed amitriptyline 50 mg tablet 50 mg PO .QHS 02/10/23 09/02/23 levothyroxine 137 mcg tablet 137 mcg PO .aday 02/10/23 09/02/23 lisinopril 20 mg tablet 20 mg PO QDAY 02/10/23 09/02/23 tirzepatide 2.5 mg/0.5 mL 7.5 mg subcut QWEEK 02/10/23 09/02/23 subcutaneous pen injector (Emmanuel) metformin 750 mg tablet,extended 750 mg PO DAILY 08/06/23 09/02/23 release 24 hr Previous Rx's Medication Instructions Recorded amoxicillin 875 mg-potassium 1 tab PO BID #20 tabs 02/15/23 clavulanate 125 mg tablet hydrocortisone 1 % topical cream 1 applic topical BID PRN allergic 02/15/23 reaction #28.4 grams Allergies Allergy/AdvReac Type Severity Reaction Status Date / Time oxycodone [From Percocet] Allergy Intermediate Verified 09/02/23 21:53 Review of Systems ROS Narrative A ten point review of systems is negative except as noted above. [facility] Medical History (Updated 09/02/23 @ 23:47 by Petros Ferrer MD) Hypothyroidism ?E03.9 - Hypothyroidism, unspecified (ICD-10) Familial hyperthyroidism ?E05.80 - Other thyrotoxicosis without thyrotoxic crisis or storm (ICD-10) HTN (hypertension) ?I10 - Essential (primary) hypertension (ICD-10) Diabetes ?E11.9 - Type 2 diabetes mellitus without complications (ICD-10) Family History (Updated 02/10/23 @ 04:43 by Jazmine Doyle) Mother Family history of COPD (chronic obstructive pulmonary disease) Family history of diabetes mellitus Family history of hypertension Sister Family history of cancer Family history of diabetes mellitus Father Family history of cancer Social History (Updated 02/10/23 @ 04:44 by Jazmine Doyle) Within the past year, how often did you have a drink containing alcohol: never Within the past year, how often did you have six or more drinks on one occasion: never Score interpretation: A score less than 3 is consistent with normal alcohol consumption. 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 Known occupational exposures/hazards: No Highest level of school completed/degree received: GED or equivalent Do you want help with school or training: No Are you now , , , , never or living with a partner: In a typical week, how many times do you talk on the telephone with family, friends, or neighbors: 3 or more times per week How often do you get together with friends or relatives: 3 or more times per week How often do you attend yazdanism or orthodoxy services: never Do you belong to any clubs or organizations such as yazdanism groups unions, fraternal or athletic groups, or school groups: no Total score: 1 Score interpretation: A score of less than or equal to 1 indicates the most socially isolated. Little interest or pleasure in doing things: not at all Feeling down, depressed, or hopeless: not at all Feel stressed/tense/nervous/anxious/difficulty sleeping: not at all Due to disability, difficulty making decisions: No Do you think of yourself as: straight/heterosexual Gender Identity: female Exam Narrative Exam Narrative: Nurses note and vital signs reviewed and patient is not hypoxic. General: The patient appears in no acute respiratory distress and she seems to prefer to keep her eyes closed. Skin: Warm, dry, no pallor noted. There is no rash noted. Head: Normocephalic, atraumatic, no nuchal rigidity Eye: Normal conjunctiva, no drainage Ears, Nose, Mouth, and Throat: oral mucosa is moist. Nares patent. Cardiovascular: Regular Rate and Rhythm Respiratory: Patient is in no distress, no accessory muscle use, lungs are clear to auscultation, no wheezing, rales or rhonchi Back: non-tender GI: soft and nontender Musculoskeletal: The patient has no evidence of calf tenderness, no pitting edema, symmetrical pulses noted bilaterally Neurological: A&O, normal speech; upper and lower extremity strength intact Psychiatric: Cooperative Constitutional Vital Signs, click to edit/add: Last Vital Signs Temp 97.7 F 09/02/23 21:48 Pulse 80 09/02/23 23:05 Resp 16 09/02/23 23:05 BP 154/86 H 09/02/23 23:05 Pulse Ox 100 09/02/23 23:05 O2 Del Method Room Air 09/02/23 23:05 Course Vital Signs Vital signs: Vital Signs Temperature 97.7 F 09/02/23 21:48 Pulse Rate 90 09/02/23 21:48 Respiratory Rate 16 09/02/23 21:48 Blood Pressure 150/90 H 09/02/23 21:48 Pulse Oximetry 100 09/02/23 21:48 Oxygen Delivery Method Room Air 09/02/23 21:48 Temperature 97.7 F 09/02/23 21:48 Pulse Rate 80 09/02/23 23:05 Respiratory Rate 16 09/02/23 23:05 Blood Pressure 154/86 H 09/02/23 23:05 Pulse Oximetry 100 09/02/23 23:05 Oxygen Delivery Method Room Air 09/02/23 23:05 Medical Decision Making MDM Narrative Medical decision making narrative: the patient was given several medications including Toradol Benadryl Solu-Medrol and Zofran. subsequently she was given morphine and feels improved and is able to be discharged home. I've no clinical suspicion of meningitis or acute intracranial pathology. Differential Diagnosis Differential Diagnosis: I green headache, meningitis, intracranial hemorrhage Medical Records Medical records reviewed: Yes I reviewed the patient's medical records Discharge Plan Discharge Chief Complaint: Headache Clinical Impression: Migraine Patient Disposition: Home, Self-Care Time of Disposition Decision: 23:47 Condition: Good Mode of Transportation: Private Vehicle Prescriptions / Home Meds: No Action amitriptyline 50 mg tablet 50 mg PO .QHS levothyroxine 137 mcg tablet 137 mcg PO .aday lisinopril 20 mg tablet 20 mg PO QDAY Mounjaro 2.5 mg/0.5 mL pen injector 7.5 mg SUBCUT QWEEK amoxicillin-pot clavulanate 875-125 mg tablet 1 tab PO BID Qty: 20 0RF hydrocortisone 1 % cream 1 applic topical BID PRN (Reason: allergic reaction) Qty: 28.4 0RF metformin 750 mg tablet extended release 24 hr 750 mg PO DAILY Instructions: Migraine Headache (ED) Stand Alone Forms: Portal Instructions Referrals: Emi Gaxiola MD [Primary Care Provider] - 1 week
[2023-09-02] MEDS: 0.9 % SODIUM CHLORIDE 1,000 ML 1000 ML IV (22:12)
[2023-09-02] MEDS: ONDANSETRON PF 4 MG/2 ML VIAL IV (22:13)
[2023-09-02] MEDS: METHYLPREDNISOLONE SOD SUCC PF 125 MG/2 ML VIAL IVP (22:13)
[2023-09-02] MEDS: DIPHENHYDRAMINE HCL 50 MG/ML (1ML) VIAL 25 MG IV (22:13)
[2023-09-02] MEDS: KETOROLAC TROMETHAMINE 30 MG/ML VIAL IVP (22:13)
[2023-09-02 23:05] VITALS: BP 154/86; PULSE 80; RESP 16; O2SAT 100
--- NOTE | 2023-09-02 23:11 | PC.NURSE ---
States not much improvement of pain, but nausea has improved
[2023-09-02] MEDS: MORPHINE SULFATE 4 MG/ML VIAL IV (23:16)
== END 2023-09-02 23:55 | disposition home or self-care (01) ==
PROVIDERS: Emergency Provider Emergency Medicine; PCP Family Medicine
DX: G43.909 Migraine, unspecified, not intractable, without status migrainosus (principal); E03.9 Hypothyroidism, unspecified; I10 Essential (primary) hypertension; E11.9 Type 2 diabetes mellitus without complications; E05.80 Other thyrotoxicosis without thyrotoxic crisis or storm; Z87.891 Personal history of nicotine dependence; Z79.899 Other long term (current) drug therapy; Z79.84 Long term (current) use of oral hypoglycemic drugs; Z79.890 Hormone replacement therapy
CPT/HCPCS: 96374; 96375; 99284; J1200; J1885; J2270; J2405; J2930

== ENCOUNTER 2024-03-19 11:38 | Outpatient (OUT) | payer OTHER, SELFPAY ==
--- NOTE | 2024-03-19 11:57 | XR_ITS ---
The [address] [address] Patient Name: APRYL DOWNS MRN: [id number] date: 1980 Sex: F Assigned Patient Location: LAB Current Patient Location: Accession/Order Number: [id number] Exam Date: 03/19/2024 12:00 Report Date: 03/20/2024 06:57 At the request of: AMANDA VILLAFANA Procedure: XR foot LT min 3V PROCEDURE: XR foot LT min 3V HISTORY: Left Foot Pain M79.672 ; left heel pain for one week; no known injury COMPARISON: None. FINDINGS: BONES:No fracture, acute abnormality, or significant arthropathy. SOFT TISSUES:No visible soft tissue swelling. EFFUSION:None visible. OTHER: Negative. XR/XR foot LT min 3V IMPRESSION: 1. No acute abnormality or significant degenerative changes to account for patient's symptoms. Electronically authenticated by: MANJU CHAMPAGNE Date: 03/20/2024 06:57
[2024-03-19 12:03] LABS: Basophils Percent Auto 0.6 % (0.2-2.0); Eosinophils Absolute Auto 0.5 10^3/uL (0.0-0.7); Hematocrit 40.6 % (36.0-48.0); Hemoglobin 13.1 g/dL (12.0-16.0); Immature Granulocytes Abs Auto 0.02 10^3/uL (0.00-0.03); Immature Granulocytes Pct Auto 0.3 % (0.0-0.5); Lymphocytes Absolute Auto 1.3 10^3/uL (1.2-3.8); Lymphocytes Percent Auto 20.8 % (20.5-60.0); Mean Corpuscular HGB Conc 32.3 g/dL (29.9-35.2); Mean Corpuscular Hemoglobin 28.2 pg (26.7-34.0); Mean Corpuscular Volume 87.5 fL (81.0-99.0); Mean Platelet Volume 10.1 fL (9.5-13.5); Monocytes Absolute Auto 0.5 10^3/uL (0.3-0.8); Monocytes Percent Auto 7.3 % (1.7-12.0); Neutrophils Absolute Auto 4.1 10^3/uL (1.4-6.5); Platelet Count 235 10^3/uL (150-450); Red Blood Count 4.64 10^6/uL (4.20-5.40); Red Cell Distribution Width 13.6 % (11.0-15.0); White Blood Count 6.4 10^3/uL (4.0-11.0)
[2024-03-19 12:09] LABS: Estimated Average Glucose 123 mg/dL; Glycohemoglobin A1C 5.9 % (4.5-6.2)
== END 2024-03-19 11:39 | disposition home or self-care (01) ==
LOC: LAB 11:40
PROVIDERS: PCP Family Medicine; Visit Provider Family Medicine
DX: D50.9 Iron deficiency anemia, unspecified (principal); E11.65 Type 2 diabetes mellitus with hyperglycemia; M79.672 Pain in left foot
CPT/HCPCS: 36415; 73630; 82728; 83036; 85025

== ENCOUNTER 2024-03-25 22:32 | Emergency (ER) | payer OTHER, SELFPAY ==
--- OUTSIDE RECORDS SUMMARY | 2024-03-25 22:39 | XMS_ITS | CCD ---
Author Organization [facility] Care Team Providers Care Rn Document Improvement Specialist Name Role Phone UNKNOWN, PROVIDER Admitting Unavailable LONDON RAMIREZ Attending Unavailable UNKNOWN, PHYSICIAN Referring Unavailable UNKNOWN, PHYSICIAN Primary Care Unavailable KELLY SAENZ CNP Primary Care Physician Beverly Childers Unavailable Unavailable AICHHOLZ, ALARM INSTALLER [place] Primary Care Unavailable BOB ., CECI Admitting Unavailable BOB .CECI Attending Unavailable BOB ., CECI Consulting Unavailable AICHHOLZ, ALARM INSTALLER [place] Primary Care Unavailable TRACEY TERRY Admitting Unavailable TRACEY TERRY Attending Unavailable TRACEY TERRY Consulting Unavailable AICHHOLZ, ALARM INSTALLER [place] Admitting Unavailable AICHHOLZ, ALARM INSTALLER [place] Attending Unavailable AICHHOLZ, ALARM INSTALLER [place] Primary Care Unavailable AICHHOLZ, ALARM INSTALLER [place] Admitting Unavailable AICHHOLZ, ALARM INSTALLER [place] Attending Unavailable AICHHOLZ, ALARM INSTALLER [place] Primary Care Unavailable AICHHOLZ, ALARM INSTALLER [place] Consulting Unavailable DR MANJU CHAMPAGNE Consulting Unavailable AICHHOLZ, ALARM INSTALLER [place] Admitting Unavailable AICHHOLZ, ALARM INSTALLER [place] Attending Unavailable AICHHOLZ, ALARM INSTALLER [place] Primary Care Unavailable AICHHOLZ, ALARM INSTALLER [place] Consulting Unavailable AICHHOLZ, ALARM INSTALLER [place] Admitting Unavailable AICHHOLZ, ALARM INSTALLER [place] Attending Unavailable AICHHOLZ, ALARM INSTALLER [place] Primary Care Unavailable AICHHOLZ, ALARM INSTALLER [place] Consulting Unavailable AICHHOLZ, ALARM INSTALLER [place] Admitting Unavailable AICHHOLZ, ALARM INSTALLER [place] Attending Unavailable AICHHOLZ, ALARM INSTALLER [place] Primary Care Unavailable AICHHOLZ, ALARM INSTALLER [place] Consulting Unavailable AICHHOLZ, [place] J Primary Care Physician Amanda Villafana Unavailable AUSTIN MURPHY Admitting Unavailable AUSTIN MURPHY Attending Unavailable NILL, Mateo R Attending Unavailable AMANDA VILLAFANA Referring Unavailable Allergies Allergy Classification Reported Allergen(s) Allergy Type Date of Onset Reaction(s) Facility (2 sources) Acetaminophen / oxyCODONE Drug Allergy 9 [facility] Repository (14 sources) Acetaminophen / oxyCODONE; Translations: [acetaminophen-ox ycodone] Drug Allergy Eruption of skin (disorder), [facility] (1 source) Acetaminophen Drug Allergy 1 [facility] Repository (1 source) Acetaminophen Drug Allergy 4 [facility] (1 source) oxyCODONE Drug Allergy 4 [facility] Medications Current Medications Medication Drug Class(es) Dates [...] q4hr for headache, 15 tab(s), Refill(s) 0, [facility]/pharmacy #[id number], 60, cm, 04/04/21 17:48:00 EDT, Height/Length Dosing, 94.9, kg, 04/04/21 17:48:00 EDT, Weight Dosing Start Date: 04/04/21 Status: Ordered [id number] 200 actuat albuterol 0.09 mg/actuat metered dose inhaler (1 source) beta2-Adrenergic Agonist Start: 03-19-2024 take 1 puff(s) by inhalation every four to six hours Albuterol Sulfate Active 2 PUFF INHALATION EVERY 4-6 HOURS 8.5 March 19, 2024 12:00am amitriptyline hydrochloride 25 mg oral tablet (4 sources) Tricyclic Antidepressant Start: 02-06-2021 take 1 tablet by mouth once daily at bedtime Elavil 25 mg Tab 25 mg = 1 tab(s), Oral, Once a day (at bedtime), # 30 tab(s), Refills(s) 0, Pharmacy: [facility]/pharmacy #[id number], 60, cm, 02/04/21 9:34:00 EDT, Height/Length Dosing, 99.3, kg, 02/04/21 6:14:00 EDT, Weight Dosing Start Date: 02/06/21 Status: Ordered aspirin 81 mg delayed release oral tablet (4 sources) Platelet Aggregation Inhibitor, Nonsteroidal Anti-inflammatory Drug Start: 02-06-2021 take 1 tablet by mouth once daily aspirin 81 mg Oral EC Tab 81 mg = 1 tab(s), Oral, Daily, # 90 tab(s), Refills(s) 0, Pharmacy: [facility]/pharmacy #[id number], 60, cm, 02/04/21 9:34:00 EDT, Height/Length Dosing, 99.3, kg, 02/04/21 6:14:00 EDT, Weight Dosing Start Date: 02/06/21 Status: Ordered Start: 02-06-2021 take 1 tablet by torrey th once daily aspirin 81 mg Oral EC Tab 81 mg = 1 tab(s), Oral, Daily, # 90 tab(s), Refills(s) 0, Pharmacy: [facility]/pharmacy #[id number], 60, cm, 02/04/21 9:34:00 EDT, Height/Length Dosing, 99.3, kg, 02/04/21 6:14:00 EDT, Weight Dosing Start Date: 02/06/21 Status: Ordered atorvastatin 40 mg oral tablet (4 sources) HMG-CoA Reductase Inhibitor Start: 02-06-2021 take 1 tablet by mouth once daily Lipitor 40 mg Tab 40 mg = 1 tab(s), Oral, Daily, # 90 tab(s), Refills(s) 0, Pharmacy: [facility]/pharmacy #[id number], 60, cm, 02/04/21 9:34:00 EDT, Height/Length Dosing, 99.3, kg, 02/04/21 6:14:00 EDT, Weight Dosing Start Date: 02/06/21 Status: Ordered levothyroxine sodium 0.125 mg oral tablet (11 sources) l-Thyroxine Start: 03-14-2024 Levothyroxine Active 0 .ROUTE .COMPLEX March 14, 2024 2:17pm TAKE 1 TABLET DAILY, FIRST THING IN THE MORNING 2 HOURS PRIOR TO ANY OTHER FOOD/DRINK/MEDS Start: 03-14-2024 End: 03-14-2024 take 125 ug by mouth once daily Levothyroxine Disconti nued 125 MCG PO Daily March 14, 2024 12:00am March 14, 2024 2:17pm Start: 11-14-2019 take 1 tablet by torrey th once daily Synthroid 150 mcg (0.15 mg) Tab 150 microgram = 1 tab(s), Oral, Daily, # 90 tab(s), Refills(s) 0, Pharmacy: [facility]/pharmacy #[id number], 160, cm, 04/06/19 13:58:00 EDT, Height/Length Measured, 91.2, kg, 04/06/19 13:58:00 EDT, Weight Measured Start Date: 11/14/19 Status: Ordered take 1 capsule by mo ut once daily in the morning Levothyroxine Sodium 125 MCG 1 capsule in the morning on an empty stomach Orally Once a day Active lisinopril 20 mg oral tablet (11 sources) Angiotensin Converting Enzyme Inhibitor Start: 11-30-2023 End: 03-12-2024 take 1 tablet by mouth once daily Lisinopril Active 20 MG PO Daily March 12, 2024 12:37pm FreeTextSi tablet Orally Once a day; Note: Source Status: Taking; Provider: Khalida Middleton ( ) take 1 tablet by torrey th every twenty-four hours Lisinopril 20 MG 1 tablet Orally Once a day Active 24 hr metFORMIN hydrochloride 750 mg extended release oral tablet (16 sources) Biguanide Start: 03-14-2024 take 1 tablet by mouth once daily Metformin Active 0 .ROUTE .COMPLEX March 14, 2024 2:17pm TAKE 1 TABLET BY MOUTH EVERY DAY Start: 11-30-2023 End: 03-14-2024 take 1 tablet by mouth once daily Metformin Discontinued 750 MG PO Daily March 12, 2024 12:37pm March 14, 2024 2:17pm FreeTextSi tablet with evening meal Orally Once a day; Note: Source Status: Taking; Provider: Khalida Middleton ( ) Start: 09-25-2020 take 500 mg by mouth once yael y metformin 500 mg, Oral, Daily, Refills(s) 0, High blood sugar Start Date: 09/25/20 Status: Ordered take 1 tablet by torrey th every twenty-four hours metFORMIN HCl ER 750 MG 1 tablet with evening meal Orally Once a day Active mounjaro 7.5 mg/0.5ml solution pen-injector (2 sources) Mounjaro 7.5 MG/ 0.5ML as directed Subcutaneous weekly for 90 days Active Multi Vitamin+ (4 sources) Start: 021 take 1 tablet by mouth once daily Multi Vitamin+ 1 tab, Oral, Daily, Refill(s) 0 Start Date: 02/04/21 Status: Ordered naproxen 500 mg oral tablet (4 sources) Nonsteroidal Anti-inflammatory Drug Start: 021 take 1 tablet by mouth twice daily Naprosyn 500 mg Tab 500 mg = 1 tab(s), Oral, BID, # 20 tab(s), Refills(s) 0 Start Date: 02/01/21 Status: Ordered sulfamethoxazole 800 mg / trimethoprim 160 mg oral tablet (3 sources) Dihydrofolate Reductase Inhibitor Antibacterial, Sulfonamide Antimicrobial take 1 tablet by mouth every twelve hours Bactrim DS 800-160 MG 1 tablet Orally Twice a day for 5 days Active Tirzepatide (3 sources) Start: Tirzepatide (Mounjaro) 7.5 mg/0.5 mL pen injector Active 0 .ROUTE .COMPLEX 6 March 12, 2024 12:37pm INJECT SUBCUTANEOUSLY DIRECTED ONCE A WEEK Start: 11-30-2023 End: 03-19-2024 inject 7.5 mg by subcutaneous injection every week Tirzepatide Discontinued 7.5 MG SUBCUT every week November 30, 2023 12:00am March 19, 2024 10:59am FreeTextSig: as directed Subcutaneous weekly; Note: Source Status: Refill; Refills: 1; Provider: Khalida Borges Start: 11-21-2023 End: 03-12-2024 Tirzepatide (Mounjaro) 7.5 m g/0.5 mL pen injector Discontinued 0 .ROUTE .COMPLEX 6 November 21, 2023 11:32am March 12, 2024 12:37pm INJECT SUBCUTANEOUSLY DIRECTED ONCE A WEEK Zofran ODT 4 mg Tab-Dis (4 sources) [...] mcg/inh MDI 1 puff(s), Inhalation, q4hr for wheezing/shortness of breath, 1 EA, Refill(s) 0, [facility]/pharmacy #[id number] Start Date: 02/26/19 Status: Ordered Tirzepatide (1 source) Start: 10-11-2023 End: 11-21-2023 Tirzepatide (Mounjaro) 10 mg/0.5 mL pen injector Discontinued 10 MG SUBCUT every week 2 October 11, 2023 1:00am November 21, 2023 11:32am Problems Active Problems Problem Classification Problem Date Documented Da te Episodic/Chronic Asthma (4 sources) Asthma 11-09-2013 Chronic Deficiency and other anemia (9 sources) Iron deficiency anemia; Translations: [Other iron deficiency anemias] 03-19-2024 Episodic Deficiency and other anemia (2 sources) Other iron deficiency anemias Episodic Deficiency and other anemia (1 source) Iron deficiency anemia, unspecified; Translations: [Iron deficiency anemia, unspecified] 03-19-2024 Episodic Diabetes mellitus with complications (17 sources) Type 2 diabetes mellitus; Translations: [Type [...] deficiency 01-05-2019 Chronic Other aftercare (1 source) correction (current) use of oral hypoglycemic drugs; Translations: [ASSISTED USE ORAL HYPOGLYCEMIC DX] Onset: 12-14-2022 Episodic Other aftercare (1 source) Other half-way (current) drug therapy; Translations: [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] Onset: 12-14-2022 Episodic Other connective tissue disease (1 source) Neurological finding; Translations: [Other symptoms and signs involving the nervous system] Onset: 02-05-2022 Episodic Other connective tissue disease (1 source) Foot pain; Translations: [Pain in left foot] 03-19-2024 Episodic Other connective tissue disease (1 source) Pain in left foot; Translations: [Pain in limb] 03-19-2024 Episodic Other hereditary and degenerative nervous system [...] UNS] Onset: 02-15-2022 Chronic Unclassified (4 sources) [employer]opalian bahai (bahai/philosoph y) 08-23-2011 Urinary tract infections (1 source) [...] Range Facility Physician Referralon 023 Physician Referral [id number] #1.00TIFF Normal [facility] T3 Freeon 03-09-2023 Free T3 [Mass/Vol] 2.7 pg/mL Invalid Interpretation Code 2.0-4.4 [facility] Comment on above: Result Comment: Perf ormed at: [facility] [address] [id number] PhD Toya Avendaño Performed By: #### 7 [id number], [id number], [id number], [id number], [id number], [id number] #### [facility] [address] [place] [address] CHEMISTRYOrdered By: SYSTEM SYSTEM on 03-08-2023 Albumin [...] 3.8 g/dL Normal 1.4 - 4.0 gm/dL [facility] Glucose [Mass/Vol] 125 mg/dL Normal 55 - 199 mg/dL [facility] Potassium [Moles/Vol] 4.1 mmol/L Normal 3.5 - 5.3 mmol/L [facility] Protein [Mass/Vol] 8.1 g/dL High 6.0 - 7.8 gm/dL [facility] Sodium [Moles/Vol] 139 mmol/L Normal 135 - 145 mmol/L [facility] TSH Qn 0.11 m[IU]/L Low 0.34 - 5.60 mcIU/mL [facility] Urea nitrogen [Mass/Vol] 14 mg/dL Normal 5 - 21 mg/dL [facility] Urea nitrogen/Creatinine [Mass ratio] 20 mg/mg Normal 10 - 20 [facility] CHEMISTRYOrdered By: Mateo Thomason on 03-08-2023 HbA1c (Bld) [Mass fraction] 5.8 % Normal <=5.9% [facility] ChemAutoSS CMPon 03-08-2023 Albumin [Mass/Vol] 4.3 g/dL Normal 3.3-5.0 [facility] Comment on above: Performed By: #### 7 [id number], [id number], 0621628, 8263238, [id number], [id number] #### [facility] [address] [place] [address] Albumin/Globulin (S) [Mass conc ratio] 1.1 Normal 1.1-2.2 [facility] Comment on above: Performed By: #### 7 [id number], [id number], 7649732, 8766812, 14517469, 0400763 #### [facility] [address] [place] [address] ALP [Catalytic activity/Vol] 55 Int._Unit/L Normal 21-98 [facility] Comment on above: Performed By: #### 7 [id number], 0908230, 5532963, 0072381, 50952449, 1486960 #### [facility] [address] [place] [address] ALT No additional P-5'-P [Catalytic activity/Vol] 17 Int._Unit/L Normal 6-46 [facility] Comment on above: Performed By: #### 7 [id number], 6053851, 2482191, 5621666, 23179114, 9834286 #### [facility] [address] [place] [address] Anion gap [Moles/Vol] 9 mmol/L Normal 6-16 [facility] Comment on above: Performed By: #### 7 [id number], 3151179, 8188020, 5327428, 00183643, [id number] #### [facility] [address] [place] [address] AST [Catalytic activity/Vol] 19 Int._Unit/L Normal 5-43 [facility] Comment on above: Performed By: #### 7 [id number], 8001798, 7512408, 6477588, 45949481, 6296298 #### [facility] [address] [place] [address] Bilirubin [Mass/Vol] 0.6 mg/dL Normal 0.0-1.1 [facility] Comment on above: Performed By: #### 7 [id number], 1592688, 8927323, 2434584, 08243415, 1325067 #### [facility] [address] [place] [address] Calcium [Mass/Vol] 9.3 mg/dL Normal 8.9-11.1 [facility] Comment on above: Performed By: #### 7 [id number], 8439720, 6062651, 8442843, 10348996, 1027218 #### [facility] [address] [place] [address] Chloride [Moles/Vol] 108 mmol/L Normal 101-111 [facility] Comment on above: Performed By: #### 7 [id number], 4181155, 2032470, 7516072, 54117685, 4885469 #### [facility] [address] [place] [address] CO2 [Moles/Vol] 26 mmol/L Normal 21-31 [facility] Comment on above: Performed By: #### 7 [id number], 2997227, 8245531, 2211499, 71441215, 1591293 #### [facility] [address] [place] [address] Creatinine [Mass/Vol] 0.7 mg/dL Normal 0.5-1.3 [facility] Comment on above: Performed By: #### 7 [id number], 0952865, 7570041, 2252211, 68297891, 0925780 #### [facility] [address] [place] [address] Globulin (S) [Mass/Vol] 3.8 g/dL Normal 1.4-4.0 [facility] Comment on above: Performed By: #### 7 [id number], 0742460, 0513844, 6041006, 05822341, 0216311 #### [facility] [address] [place] [address] Glucose [Mass/Vol] 125 mg/dL Normal 55-199 [facility] Comment on above: Result Comment: If t his glucose result represents a fasting glucose, interpretation should refer to the following reference range: 55-99 mg/dL Performed By: #### 7 [id number], 7493840, 3225066, 5787985, 59630277, 4134349 #### [facility] [address] [place] [address] Potassium [Moles/Vol] 4.1 mmol/L Normal 3.5-5.3 [facility] Comment on above: Performed By: #### 7 [id number], 8921433, 2409708, 2079965, 87265782, 0469335 #### [facility] [address] [place] [address] Protein [Mass/Vol] 8.1 g/dL High 6.0-7.8 [facility] Comment on above: Performed By: #### 7 [id number], 2031532, 9039607, 1235454, 62312698, 4443411 #### [facility] [address] [place] [address] Sodium [Moles/Vol] 139 mmol/L Normal 135-145 [facility] Comment on above: Performed By: #### 7 [id number], 3954028, 4761323, 4051896, 75040934, 6150232 #### [facility] [address] [place] [address] Urea nitrogen [Mass/Vol] 14 mg/dL Normal 5-21 [facility] Comment on above: Performed By: #### 7 18951025, 7307389, 8729489, 8007122, 90461850, 1524134 #### [facility] [address] [place] [address] Urea nitrogen/Creatinine [Mass ratio] 20 No Units Normal 10-20 [facility] Comment on above: Performed By: #### 7 [id number], 3237511, 0517114, 9192204, 64968211, 2164658 #### [facility] [address] [place] [address] Consent for Treatmenton 02-26 Consent for Treatment [id number] #1.00CD:127 Normal [facility] Free T4on 03-08-2023 Free T4 [Mass/Vol] 1.24 ng/dL Normal 0.58-1.64 [facility] Comment on above: Performed By: #### 7 [id number], 6545949, 5154600, 4549432, 90092942, 9518339 #### [facility] [address] [place] [address] [id number] 03-08-2023 HbA1c (Bld) [Mass fraction] 5.8 % Normal <=5.9 [facility] Comment on above: Performed By: #### 7 [id number], 1258281, 5487359, 0407943, 24618073, 0572732 #### [facility] [address] [place] [address] Physician Orderon 03-08-2023 Physician Order [id number] #1.00CD:127 Normal [facility] TSHon 03-08-2023 TSH Qn 0.11 m[IU]/L Low 0.34-5.60 [facility] Comment on above: Performed By: #### 7 [id number], 4335468, 7431160, 4355374, 12123608, 7177712 #### [facility] [address] [place] [address] eGFRon 03-08-2023 GFR/1.73 sq M.predicted among non-blacks MDRD (S/P/Bld) [Vol rate/Area] 109 mL/min/1.73 m2 Normal >=59 [facility] Comment on above: Order Comment: Order added by Discern Expert. Result Comment: Crew Manager emre kidney disease could be indicated at eGFR's of less than 60 mL/min/1.73m2. Kidney failure is indicated at less than 15 mL/min/1.73m2. Performed By: #### 7 [id number], 8761069, 8914193, 9508804, 29160233, 6359484 #### [facility] [address] [place] [address] CULTURE URINEon 12-14-2022 CULTURE URINE Isolate 1 [...] Trimethoprim/Sulfame thoxazole <=20 S F Normal [facility] Comment on above: Performed By: #### VERONICA SIERRA #### [facility] [address] [place] [address] Dr. Dandy Dobson Physician Orderon 12-13-2022 Physician Order [id number] #1.00CD:127 Normal [facility] ER URINE PROFILEon 3 Bilirubin Ql (U) Negative Normal NEGATIVE [facility] Comment on above: Performed By: #### VERONICA SIERRA #### [facility] [address] [place] [address] Dr. Dandy Dobson Clarity (U) SL CLOUDY Abnormal CLEAR [facility] Comment on above: Performed By: #### VERONICA SIERRA #### [facility] [address] [place], [place] [address] Dr. Dandy Dobson Color (U) LT. YELLOW Normal YELLOW [facility] Comment on above: Performed By: #### Jony HUGHES UMICRO #### [facility] [address] [place] [address] Dr. Dandy LAO A micrscopic examination will be performed if indicated. Normal [facility] Comment on above: Performed By: #### Jony HUGHES UMICRO #### [facility] [address] [place] [address] Dr. Dandy Dobson Glucose Ql (U) Negative Normal NEGATIVE [facility] Comment on above: Performed By: #### Jony HUGHES UMICRO #### [facility] [address] [place] [address] Dr. Dandy Dobson Hemoglobin Ql (U) SMALL Abnormal NEGATIVE [facility] Comment on above: Performed By: #### Jony HUGHES UMICRO #### [facility] [address] [place] [address] Dr. Dandy Dobson Ketones Ql (U) Negative Normal NEGATIVE [facility] Comment on above: Performed By: #### Jony HUGHES UMICRO #### [facility] [address] [place] [address] Dr. Dandy Dobson LEUKOCYTES SMALL Abnormal NEGATIVE [facility] Comment on above: Performed By: #### Jony HUGHES UMICRO #### [facility] [address] [place] [address] Dr. Dandy Dobson Nitrite Ql (U) Negative Normal NEGATIVE [facility] Comment on above: Performed By: #### Jony HUGHES UMICRO #### [facility] [address] [place] [address] Dr. Dandy Dobson pH (U) 6.0 [pH] Normal 5-9 [facility] Comment on above: Performed By: #### Jony HUGHES UMICRO #### [facility] [address] [place] [address] Dr. Dandy Dobson Protein (U) [Mass/Vol] 30 mg/dL Abnormal NEGAT JACKELYN/ TRACE [facility] Comment on above: Performed By: #### E RUR, UMICRO #### [facility] [address] [place] [address] Dr. Dandy Dobson SPEC GRAVITY >=1.030 Abnormal 1.005-<=1.02 5 [facility] Comment on above: Performed By: #### E RUR, UMICRO #### [facility] [address] [place] [address] Dr. Dandy Dobson UR MICRO IND INDICATED Normal [facility] Comment on above: Performed By: #### E RUR, UMICRO #### [facility] [address] [place] [address] Dr. Dandy Dobson Urobilinogen Qn (U) 1.0 {Sarahi'U}/dL Normal 0.2 - 1. 0 [facility] Comment on above: Performed By: #### E RUR, UMICRO #### [facility] [address] [place] [address] Dr. Dandy Dobson URon 12-12-2022 , QUAL Negative Normal NEGATIVE [facility] Comment on above: Performed By: #### P REGU #### [facility] [address] [place] [address] Dr. Dandy Dobson URINE MICROSCOPIC ONLYon BACTERIA SMALL Abnormal NONE SEEN [facility] Comment on above: Performed By: #### E RUEveline, UMICRO #### [facility] [address] [place] [address] Dr. Dandy Dobson Bacteria identified Cx Nom (U) INDICATED Normal [facility] Comment on above: Performed By: #### E RUR, UMICRO #### [facility] [address] [place] [address] Dr. Dandy Dobson CAST NONE SEEN Normal NONE SEEN [facility] Comment on above: Performed By: #### E RUR, UMICRO #### [facility] [address] [place] [address] Dr. Dandy Dobson Crystals LM Nom (Urine sed) NONE SEEN Normal NONE SEEN [facility] Comment on above: Performed By: #### E RUR, UMICRO #### [facility] [address] [place] [address] Dr. Dandy Dobson Epithelial cells LM Ql (Urine sed) MODERATE Abnormal NONE SEEN /RARE [facility] Comment on above: Performed By: #### Jony HUGHES, UMICRO #### [facility] [address] [place] [address] Dr. Dandy Dobson MUCOUS NONE SEEN Normal NONE SEEN [facility] Comment on above: Performed By: #### Jony HUGHES, UMICRO #### [facility] [address] [place] [address] Dr. Dandy Dobson RBC 10-20 Abnormal 0-2 [facility] Comment on above: Performed By: #### Jony HUGHES UMICRO #### [facility] [address] [place] [address] Dr. Dandy Dobson WBC (U) [#/Vol] /uL Abnormal NONE SEEN [facility] Comment on above: Performed By: #### Jony HUGHES UMICRO #### [facility] [address] [place] [address] Dr. Dandy Dobson FREE T4on 11-29-2022 Free T4 [Mass/Vol] 1.10 ng/dL Normal 0.76-1.46 [facility] Comment on above: Performed By: #### Jony HUGHES UMICRO #### [facility] [address] [place] [address] Dr. Dandy Dobson TSHon 11-29-2022 TSH 0.204 uIU/mL Critically low 0.358-3.740 [facility] Comment on above: Performed By: #### Jony HUGHES UMICRO #### [facility] [address] [place] [address] Dr. Dandy Dobson CBC AUTO DIFFon 09-14-2022 BASO # 0.0 103/ul Normal 0.0-0.1 [facility] Comment on above: Performed By: #### C BC #### [facility] [address] [place] [address] Dr. Dandy Dobson Basophils/100 WBC (Bld) 0.4 % Normal 0.2-2.0 [facility] Comment on above: Performed By: #### C BC #### [facility] [address] [place] [address] Dr. Dandy Dobson EO # 0.1 103/ul Normal 0.0-0.7 [facility] Comment on above: Performed By: #### C BC #### [facility] [address] [place] [address] Dr. Dandy Dobson Eosinophils/100 WBC (Bld) 2.1 % Normal 0.9-7.0 [facility] Comment on above: Performed By: #### C BC #### [facility] [address] [place] [address] Dr. Dandy Dobson Erythrocyte distribution width (RBC) [Ratio] 13.7 % Normal 11.0-15.0 [facility] Comment on above: Performed By: #### C BC #### [facility] [address] [place] [address] Dr. Dandy Dobson Hematocrit (Bld) [Volume fraction] 38.7 % Normal 36.0-48.0 [facility] Comment on above: Performed By: #### C BC #### [facility] [address] [place] [address] Dr. Dandy Dobson Hemoglobin (Bld) [Mass/Vol] 12.6 g/dL Normal 12.0-16.0 [facility] Comment on above: Performed By: #### C BC #### [facility] [address] [place] [address] Dr. Dandy Dobson IG # 0.01 10e3/ul Normal 0.00-0.03 [facility] Comment on above: Performed By: #### C BC #### [facility] [address] [place] [address] Dr. Dandy Dobson IG % 0.2 % Normal 0.0-0.5 [facility] Comment on above: Performed By: #### C BC #### [facility] [address] [place] [address] Dr. Dandy Dobson LYMPH # 1.6 103/ul Normal 1.2-3.8 [facility] Comment on above: Performed By: #### C BC #### [facility] [address] [place] [address] Dr. Dandy Dobson Lymphocytes/100 WBC (Bld) 27.5 % Normal 20.5-60.0 [facility] Comment on above: Performed By: #### C BC #### [facility] [address] [place] [address] Dr. Dandy Dobson MANUAL DIFF REQ NO Normal [facility] Comment on above: Performed By: #### C BC #### [facility] [address] [place] [address] Dr. Dandy Dobson MCH (RBC) [Entitic mass] 27.1 pg Normal 26.7-34.0 [facility] Comment on above: Performed By: #### C BC #### [facility] [address] [place] [address] Dr. Dandy Dobson MCHC (RBC) [Mass/Vol] 32.6 g/dL Normal 29.9-35.2 [facility] Comment on above: Performed By: #### C BC #### [facility] [address] [place] [address] Dr. Dandy Dobson MCV (RBC) [Entitic vol] 83.2 fL Normal 81.0-99.0 [facility] Comment on above: Performed By: #### C BC #### [facility] [address] [place] [address] Dr. Dandy Dobson MONO # 0.6 103/ul Normal 0.3-0.8 [facility] Comment on above: Performed By: #### C BC #### [facility] [address] [place] [address] Dr. Dandy Dobson Monocytes/100 WBC (Bld) 9.9 % Normal 1.7-12.0 [facility] Comment on above: Performed By: #### C BC #### [facility] [address] [place] [address] Dr. Dandy Dobson NEUT # 3.4 103/ul Normal 1.4-6.5 [facility] Comment on above: Performed By: #### C BC #### [facility] [address] [place] [address] Dr. Dandy Dobson Neutrophils/100 WBC (Bld) 59.9 % Normal 43.0-75.0 [facility] Comment on above: Performed By: #### C BC #### [facility] [address] [place] [address] Dr. Dandy Dobson Platelet mean volume (Bld) [Entitic vol] 9.7 fL Normal 9.5-13.5 [facility] Comment on above: Performed By: #### C BC #### [facility] [address] [place] [address] Dr. Dandy Dobson PLT 230 103/ul Normal 150-450 [facility] Comment on above: Performed By: #### C BC #### [facility] [address] [place] [address] Dr. Dandy Dobson RBC 4.65 106/ul Normal 4.20-5.40 [facility] Comment on above: Performed By: #### C BC #### [facility] [address] [place] [address] Dr. Dandy Dobson WBC 5.6 103/ul Normal 4.0-11.0 [facility] Comment on above: Performed By: #### C BC #### [facility] [address] [place] [address] Dr. Dandy Dobson FERRITINon 09-14-2022 Ferritin [Mass/Vol] 52.0 ng/mL Normal 6.2-137.0 [facility] Comment on above: Performed By: #### V ITB12, IRON, FT4, FERR #### [facility] [address] [place] [address] Dr. Dandy Dobson FREE T4on 09-14-2022 Free T4 [Mass/Vol] 1.69 ng/dL Critically high 0.76-1.46 [facility] Comment on above: Performed By: #### V ITB12, IRON, FT4, FERR #### [facility] [address] [place] [address] Dr. Dandy Dobson GLYCOHEMOGLOBIN A1Con 2022 ADA RECOMMENDATION SEE BELOW Normal [facility] Comment on above: Result Comment: ADA RECOMMENDED LIMIT 4.0 - 6.0 ADA THERAPEUTIC TARGET < 7.0 ACTION SUGGESTED > 7.0 Performed By: #### VERONICA SIERRA #### [facility] [address] [place] [address] Dr. Dandy Dobson Glucose [Mass/Vol] 134 mg/dL Normal [facility] Comment on above: Performed By: #### HELEN SIERRARO #### [facility] [address] [place] [address] Dr. Dandy Dobson HbA1c (Bld) [Mass fraction] 6.3 % Critically high 4.5-6.2 [facility] Comment on above: Performed By: #### HELEN SIERRARO #### [facility] [address] [place] [address] Dr. Dandy Dobson IRONon 09-14-2022 Iron [Mass/Vol] 42.0 ug/dL Critically low 50.0-170.0 [facility] Comment on above: Performed By: #### V ITB12, IRON, FT4, FERR #### [facility] [address] [place] [address] Dr. Dandy Dobson PROF 14(COMP METB)on 023 Albumin [Mass/Vol] 3.8 g/dL Normal 3.4-5.0 [facility] Comment on above: Performed By: #### HELEN SIERRARO #### [facility] [address] [place] [address] Dr. Dandy Dobson Albumin/Globulin [Mass ratio] 1.0 {ratio} Normal [facility] Comment on above: Performed By: #### HELEN SIERRARO #### [facility] [address] [place] [address] Dr. Dandy Dobson ALP [Catalytic activity/Vol] 66 U/L Normal 46-116 [facility] Comment on above: Performed By: #### HELEN SIERRARO #### [facility] [address] [place] [address] Dr. Dandy Dobson ALT [Catalytic activity/Vol] 20 U/L Normal 14-59 [facility] Comment on above: Performed By: #### VERONICA SIERRA #### [facility] [address] [place] [address] Dr. Dandy Dobson Anion gap [Moles/Vol] 11.3 mmol/L Normal [facility] Comment on above: Performed By: #### HELEN SIERRARO #### [facility] [address] [place] [address] Dr. Dandy Dobson AST [Catalytic activity/Vol] 16 U/L Normal 15-37 [facility] Comment on above: Performed By: #### VERONICA SIERRA #### [facility] [address] [place] [address] Dr. Dandy Dobson Bilirubin [Mass/Vol] 0.3 mg/dL Normal 0.2-1.0 [facility] Comment on above: Performed By: #### VERONICA SIERRA #### [facility] [address] [place] [address] Dr. Dandy Dobson Calcium [Mass/Vol] 9.0 mg/dL Normal 8.5-10.1 [facility] Comment on above: Performed By: #### HELEN SIERRARO #### [facility] [address] [place] [address] Dr. Dandy Dobson Chloride [Moles/Vol] 103 mmol/L Normal 98-107 [facility] Comment on above: Performed By: #### HELEN SIERRARO #### [facility] [address] [place] [address] Dr. Dandy Dobson CO2 [Moles/Vol] 28.2 mmol/L Normal 21.0-32.[address] [facility] Comment on above: Performed By: #### HELEN SIERRARO #### [facility] [address] [place] [address] Dr. Dandy Dobson Creatinine [Mass/Vol] 0.57 mg/dL Normal 0.55-1.02 [facility] Comment on above: Performed By: #### Jony LAWRENCER, UMICRO #### [facility] [address] [address] [address] Dandy Dobson EGFR-AF AFGHAN >60 Normal >=60 [facility] Comment on above: Performed By: #### E MELINDAR, UMICRO #### [facility] [address] [address] [address] Dandy Dobson EGFR-NON AF AFGHAN >60 Normal >=60 [facility] Comment on above: Performed By: #### E RUR, UMICRO #### [facility] [address] [address] [address] Dandy Dobson Globulin (S) [Mass/Vol] 3.7 g/dL Normal [facility] Comment on above: Performed By: #### E SAUL, UMICRO #### [facility] [address] [place] [address] Dr. Dandy Dobson Glucose [Mass/Vol] 107 mg/dL Critically high 74-106 [facility] Comment on above: Performed By: #### Jony HUGHES, UMICRO #### [facility] [address] [place] [address] Dr. Dandy Dobson Potassium [Moles/Vol] 3.5 mmol/L Normal 3.5-5.1 [facility] Comment on above: Performed By: #### Jony HUGHES, UMICRO #### [facility] [address] [place] [address] Dr. Dandy Dobson Protein [Mass/Vol] 7.5 g/dL Normal 6.4-8.2 [facility] Comment on above: Performed By: #### E SAUL, UMICRO #### [facility] [address] [address] [address] Dandy Dobson Sodium [Moles/Vol] 139 mmol/L Normal 136-145 [facility] Comment on above: Performed By: #### E MELINDAR, UMICRO #### [facility] [address] [address] [address] Dandy Dobson Urea nitrogen [Mass/Vol] 12.0 mg/dL Normal 7.0-18.0 [facility] Comment on above: Performed By: #### HELEN SIERRARO #### [facility] [address] [address] [address] Dandy Dobson Urea nitrogen/Creatinine [Mass ratio] 21.1 mg/mg Normal [facility] Comment on above: Performed By: #### HELEN SIERRARO #### [facility] [address] [address] [address] Dandy Dobson TSHon 09-14-2022 TSH 0.015 uIU/mL Critically low 0.358-3.740 [facility] Comment on above: Performed By: #### HELEN SIERRARO #### [facility] [address] [place] [address] Dr. Dandy Dobson VITAMIN B12on 09-14-2022 Cobalamin (Vitamin B12) [Mass/Vol] 485.0 pg/mL Normal 193.0-986.0 [facility] Comment on above: Performed By: #### V ITB12, IRON, FT4, FERR #### [facility] [address] [place] [address] Dr. Dandy Dobson GLYCOHEMOGLOBIN A1Con 2021 ADA RECOMMENDATION SEE BELOW Normal [facility] Comment on above: Result Comment: ADA RECOMMENDED LIMIT 4.0 - 6.0 ADA THERAPEUTIC TARGET < 7.0 ACTION SUGGESTED > 7.0 Performed By: #### A 1C #### [facility] [address] [place] [address] Dr. Dandy Dobson Glucose [Mass/Vol] 143 mg/dL Normal [facility] Comment on above: Performed By: #### A 1C #### [facility] [address] [place] [address] Dr. Dandy Dobson HbA1c (Bld) [Mass fraction] 6.6 % Critically high 4.5-6.2 [facility] Comment on above: Performed By: #### A 1C #### [facility] [address] [place] [address] Dr. Dandy Dobson LIPID PROFILEon 06-09-2022 CHOL-HDL RATIO NORM SEE BELOW Normal [facility] Comment on above: Result Comment: 3.3 - 4.4 LOW RISK 4.4 - 7.1 AVERAGE RISK 7.1 - 11.0 MODERATE RISK >11.0 HIGH RISK Performed By: #### HELEN SIERRARO #### [facility] [address] [address] [address] Dandy Dobson Cholesterol [Mass/Vol] 138 mg/dL Normal <=200 [facility] Comment on above: Performed By: #### Jony HUGHES UMINGRIDRO #### [facility] [address] [place] [address] Dr. Dandy Dobson Cholesterol in HDL [Mass/Vol] 46 mg/dL Normal 40-60 [facility] Comment on above: Performed By: #### HELEN SIERRARO #### [facility] [address] [place] [address] Dr. Dandy Dobson Cholesterol in LDL [Mass/Vol] 62.4 mg/dL Normal [facility] Comment on above: Performed By: #### HELEN SIERRARO #### [facility] [address] [place] [address] Dr. Dandy Dobson Cholesterol.total/Chol esterol in HDL [Mass ratio] 3.0 {ratio} Normal [facility] Comment on above: Performed By: #### HELEN SIERRARO #### [facility] [address] [place] [address] Dr. Dandy Dobson HDL NORMAL > or = 60 mg/dl - LOW CARDIOVASCULAR RISK <40 mg/dl - HIGH CARDIOVASCULAR RISK Normal [facility] Comment on above: Performed By: #### HELEN SIERRARO #### [facility] [address] [address] [address] Dandy Dobson LDL CALC NORMAL SEE BELOW Normal [facility] Comment on above: Result Comment: <100 mg/dl OPTIMAL 100 - 129 mg/dl NEAR OR ABOVE OPTIMAL 130 - 159 mg/dl BORDERLINE HIGH 160 - 189 mg/dl HIGH >190 mg/dl VERY HIGH Performed By: #### Jony HUGHES UMINGRIDRO #### [facility] [address] [address] [address] Dandy Dobson Triglyceride [Mass/Vol] 148 mg/dL Normal <=150 [facility] Comment on above: Performed By: #### HELEN SIERRARO #### [facility] [address] [place] [address] Dr. Dandy Dobson VLDL CALC 29.6 mg/dL Normal [facility] Comment on above: Performed By: #### Jony HUGHES UMICRO #### [facility] [address] [place] [address] Dr. Dandy Dobson PROF CHEM 8 (BAS METB)on Anion gap [Moles/Vol] 9.4 mmol/L Normal [facility] Comment on above: Performed By: #### Jony HUGHES UMICRO #### [facility] [address] [place] [address] Dr. Dandy Dobson Calcium [Mass/Vol] 8.7 mg/dL Normal 8.5-10.1 [facility] Comment on above: Performed By: #### Jony HUGHES UMICRO #### [facility] [address] [place] [address] Dr. Dandy Dobson Chloride [Moles/Vol] 104 mmol/L Normal 98-107 [facility] Comment on above: Performed By: #### Jony HUGHES UMICRO #### [facility] [address] [place] [address] Dr. Dandy Dobson CO2 [Moles/Vol] 28.8 mmol/L Normal 21.0-32.[address] [facility] Comment on above: Performed By: #### Jony HUGHES UMICRO #### [facility] [address] [place] [address] Dr. Dandy Dobson Creatinine [Mass/Vol] 0.67 mg/dL Normal 0.55-1.02 [facility] Comment on above: Performed By: #### Jony HUGHES UMICRO #### [facility] [address] [place] [address] Dr. Dandy Dobson EGFR-AF AFGHAN >60 Normal >=[address] [facility] Comment on above: Performed By: #### E RUR, UMICRO #### [facility] [address] [address] [address] Dandy Dobson EGFR-NON AF AFGHAN >60 Normal >=60 [facility] Comment on above: Performed By: #### E SAUL, UMICRO #### [facility] [address] [address] [address] Dandy Dobson Glucose [Mass/Vol] 120 mg/dL Critically high 74-106 [facility] Comment on above: Performed By: #### Jony HUGHES, UMICRO #### [facility] [address] [address] [address] Dandy Dobson Potassium [Moles/Vol] 4.2 mmol/L Normal 3.5-5.1 [facility] Comment on above: Performed By: #### Jony HUGHES, UMICRO #### [facility] [address] [place] [address] Dr. Dandy Dobson Sodium [Moles/Vol] 138 mmol/L Normal 136-145 [facility] Comment on above: Performed By: #### Jony HUGHES UMICRO #### [facility] [address] [address] [address] Dandy Dobson Urea nitrogen [Mass/Vol] 17.0 mg/dL Normal 7.0-18.0 [facility] Comment on above: Performed By: #### Jony HUGHES, UMICRO #### [facility] [address] [address] [address] Dandy Dobson Urea nitrogen/Creatinine [Mass ratio] 25.4 mg/mg Normal [facility] Comment on above: Performed By: #### Jony HUGHES, UMICRO #### [facility] [address] [place] [address] Dr. Dandy Dobson MRI BRAIN WO CONon [...] by: MANJU CHAMPAGNE Date: 2022-02-15 16:53 Normal [facility] CHEMISTRYOrdered By: SYSTEM SYSTEM on 02-04-2022 Troponin I.cardiac [Mass/Vol] 4.40 pg/mL Low 10.10 - 27.10 pg/mL [facility] Anion gap [Moles/Vol] 12 mmol/L Normal 6 - 16 mEq/L [facility] Calcium [Mass/Vol] 8.8 mg/dL Low 8.9 - 11. 1 mg/dL [facility] Chloride [Moles/Vol] 102 mmol/L Normal 101 - 1 11 mmol/L [facility] CO2 [Moles/Vol] 24 mmol/L Normal 21 - 31 mmol/L [facility] Creatinine [Mass/Vol] 0.6 mg/dL Normal 0.5 - 1.3 mg/dL [facility] GFR/1.73 sq M.predicted among blacks MDRD (S/P/Bld) [Vol rate/Area] mL/min/1.73 m2 Normal >=59mL/min/1 .73 m2 [facility] Chem S GFR/1.73 sq M.predicted among non-blacks MDRD (S/P/Bld) [Vol rate/Area] mL/min/1.73 m2 Normal >=59mL/min/1 .73 m2 [facility] Chem S Glucose [Mass/Vol] 150 mg/dL Normal 55 - 199 mg/dL [facility] Remisol Lipase [Catalytic activity/Vol] 38 U/L Normal 13 - 58 unit/L [facility] Remisol Magnesium [Mass/Vol] 1.9 mg/dL Normal 1.3 - 2 .4 mg/dL [facility] Remisol Potassium [Moles/Vol] 3.1 mmol/L Low 3.5 - 5.3 mmol/L [facility] Remisol Sodium [Moles/Vol] 135 mmol/L Normal 135 - 145 mmol/L [facility] Remisol Troponin I.cardiac [Mass/Vol] 4.10 pg/mL Low 10.10 - 27.10 pg/mL [facility] Remisol Urea nitrogen [Mass/Vol] 10 mg/dL Normal 5 - 21 mg/dL [facility] U[facility] nitrogen/Creatinine [Mass ratio] 17 mg/mg Normal 10 - 20 [facility] Remisol CHEMISTRYOrdered By: Ciara quintana on 02-04-2022 Natriuretic peptide B (Bld) [Mass/Vol] 33 pg/mL Normal 5 - 80 pg/mL [facility] HemeManSS CHEMISTRYOrdered By: Lab ROP User on 02-04-2022 Glucose [Mass/Vol] 144 mg/dL High 55 - 99 mg/dL [facility] POC Subsection POC Device SN [id number] Invalid Interpretation Code [facility] POC Subsection POC User ID [id number] Invalid Interpretation Code [facility] POC Subsection POC Username [email or web address] Invalid Interpretation Code [facility] POC Subsection COAGULATIONOrdered By: Christina Colindres on 02-04-2022 aPTT Coag (PPP) [Time] 32.0 s Normal 25.1 - 36.5 second(s) [facility] Auto Coag INR Coag (PPP) [Relative time] 1.0 {INR} Invalid Interpretation Code [facility] Auto Coag PT Coag (PPP) [Time] 11.6 s Normal 10.2 - 12.9 second(s) [facility] Auto Coag HEMATOLOGYOrdered By: SYSTEM SYSTEM on 02-04-2022 Basophils/100 WBC (Bld) 0.9 % Normal 0.0 - 2.0 % [facility] HemeAutoSS Basophils/Leukocytes Auto (Bld) [Pure # fraction] [...] PM) Normal Negative [facility] UA Auto SS [place].plasma/[place] .RBC (Bld) [Mass ratio] 0-3 /HPF Normal 0-3/HPF [facility] UA Auto SS Nitrite Ql (U) Negative (02/04/22 7:21 PM) Normal Negative [facility] UA Auto SS pH (U) 7.0 *NA* (02/04/22 7:21 PM) Invalid Interpretation Code 5.0 - 9.0 [facility] UA Auto SS Protein (U) [Mass/Vol] Negative (02/04/22 7:21 PM) Normal Negative [facility] UA Auto SS Specific gravity (U) [Rel density] 1.010 *NA* (02/04/22 7:21 PM) Invalid Interpretation Code 1.005 - 1.030 [facility] UA Auto SS UA Spec Desc Random Urine (02/04/22 7:21 PM) Normal [facility] UA Auto SS Urobilinogen Qn (U) [id number] {Sarahi'U}/dL Normal 0.0 - 1.0 EU/dL [facility] UA Auto SS WBC Auto Ql (U) Negative (02/04/22 7:21 PM) Normal Negative [facility] UA Auto SS WBC LM.HPF (Urine sed) [#/Area] 0-5 /HPF Normal 0-5/HPF [facility] UA Auto SS CBC AUTO DIFFon 12-31-2021 BASO # 0.0 103/ul Normal 0.0-0.1 [facility] Comment on above: Performed By: #### C BC #### [facility] [address] [place] [address] Dr. Dandy Dobson Basophils/100 WBC (Bld) 0.2 % Normal 0.2-2.0 [facility] Comment on above: Performed By: #### C BC #### [facility] [address] [place] [address] Dr. Dandy Dobson EO # 0.0 103/ul Normal 0.0-0.7 [facility] Comment on above: Performed By: #### C BC #### [facility] [address] [place] [address] Dr. Dandy Dobson Eosinophils/100 WBC (Bld) 0.1 % Critically low 0.9-7.0 [facility] Comment on above: Performed By: #### C BC #### [facility] [address] [place] [address] Dr. Dandy Dobson Erythrocyte distribution width (RBC) [Ratio] 13.9 % Normal 11.0-15.0 [facility] Comment on above: Performed By: #### C BC #### [facility] [address] [place] [address] Dr. Dandy Dobson Hematocrit (Bld) [Volume fraction] 42.7 % Normal 36.0-48.0 [facility] Comment on above: Performed By: #### C BC #### [facility] [address] [place] [address] Dr. Dandy Dobson Hemoglobin (Bld) [Mass/Vol] 13.9 g/dL Normal 12.0-16.0 [facility] Comment on above: Performed By: #### C BC #### [facility] [address] [place] [address] Dr. Dandy Dobson IG # 0.03 10e3/ul Normal 0.00-0.03 [facility] Comment on above: Performed By: #### C BC #### [facility] [address] [place] [address] Dr. Dandy Dobson IG % 0.3 % Normal 0.0-0.5 [facility] Comment on above: Performed By: #### C BC #### [facility] [address] [place] [address] Dr. Dandy Dobson LYMPH # 1.2 103/ul Normal 1.2-3.8 [facility] Comment on above: Performed By: #### C BC #### [facility] [address] [place] [address] Dr. Dandy Dobson Lymphocytes/100 WBC (Bld) 13.5 % Critically low 20.5-60.0 [facility] Comment on above: Performed By: #### C BC #### [facility] [address] [place] [address] Dr. Dandy Dobson MANUAL DIFF REQ NO Normal [facility] Comment on above: Performed By: #### C BC #### [facility] [address] [place] [address] Dr. Dandy Dobson MCH (RBC) [Entitic mass] 27.4 pg Normal 26.7-34.0 [facility] Comment on above: Performed By: #### C BC #### [facility] [address] [place] [address] Dr. Dandy Dobson MCHC (RBC) [Mass/Vol] 32.6 g/dL Normal 29.9-35.2 [facility] Comment on above: Performed By: #### C BC #### [facility] [address] [place] [address] Dr. Dandy Dobson MCV (RBC) [Entitic vol] 84.2 fL Normal 81.0-99.0 [facility] Comment on above: Performed By: #### C BC #### [facility] [address] [place] [address] Dr. Dandy Dobson MONO # 0.4 103/ul Normal 0.3-0.8 [facility] Comment on above: Performed By: #### C BC #### [facility] [address] [address] [address] Dandy Dobson Monocytes/100 WBC (Bld) 5.0 % Normal 1.7-12.0 [facility] Comment on above: Performed By: #### C BC #### [facility] [address] [place] [address] Dr. Dandy Dobson NEUT # 7.1 103/ul Critically high 1.4-6.5 [facility] Comment on above: Performed By: #### C BC #### [facility] [address] [place] [address] Dr. Dandy Dobson Neutrophils/100 WBC (Bld) 80.9 % Critically high 43.0-75.0 [facility] Comment on above: Performed By: #### C BC #### [facility] [address] [place] [address] Dr. Dandy Dobson Platelet mean volume (Bld) [Entitic vol] 10.4 fL Normal 9.5-13.5 [facility] Comment on above: Performed By: #### C BC #### [facility] [address] [place] [address] Dr. Dandy Dobson PLT 256 103/ul Normal 150-450 [facility] Comment on above: Performed By: #### C BC #### [facility] [address] [place] [address] Dr. Dandy Dobson RBC 5.07 106/ul Normal 4.20-5.40 [facility] Comment on above: Performed By: #### C BC #### [facility] [address] [place] [address] Dr. Dandy Dobson WBC 8.8 103/ul Normal 4.0-11.0 [facility] Comment on above: Performed By: #### C BC #### [facility] [address] [place] [address] Dr. Dandy Dobson PROF CHEM 8 (BAS METB)on Anion gap [Moles/Vol] 11.2 mmol/L Normal [facility] Comment on above: Performed By: #### Jony HUGHES, UMICRO #### [facility] [address] [place] [address] Dr. Dandy Dobson Calcium [Mass/Vol] 8.2 mg/dL Critically low 8.5-10.1 [facility] Comment on above: Performed By: #### E SAUL, UMICRO #### [facility] [address] [place] [address] Dr. Dandy Dobson Chloride [Moles/Vol] 100 mmol/L Normal 98-107 [facility] Comment on above: Performed By: #### Jony HUGHES, UMICRO #### [facility] [address] [place] [address] Dr. Dandy Dobson CO2 [Moles/Vol] 25.5 mmol/L Normal 21.0-32.0 [facility] Comment on above: Performed By: #### Jony HUGHES, UMICRO #### [facility] [address] [place] [address] Dr. Dandy Dobson Creatinine [Mass/Vol] 0.72 mg/dL Normal 0.55-1.02 [facility] Comment on above: Performed By: #### Jony HUGHES, UMICRO #### [facility] [address] [place] [address] Dr. Dandy Dobson EGFR-AF AFGHAN >60 Normal >=60 [facility] Comment on above: Performed By: #### Jony HUGHES, UMICRO #### [facility] [address] [place] [address] Dr. Dandy Dobson EGFR-NON AF AFGHAN >60 Normal >=60 [facility] Comment on above: Performed By: #### E SAUL, UMICRO #### [facility] [address] [place] [address] Dr. Dandy Dobson Glucose [Mass/Vol] 201 mg/dL Critically high 74-106 [facility] Comment on above: Performed By: #### E RUR, UMICRO #### [facility] [address] [address] [address] Dandy Dobson Potassium [Moles/Vol] 3.7 mmol/L Normal 3.5-5.1 [facility] Comment on above: Performed By: #### E RUR, UMICRO #### [facility] [address] [place] [address] Dr. Dandy Dobson Sodium [Moles/Vol] 133 mmol/L Critically low 136-145 [facility] Comment on above: Performed By: #### E RUR, UMICRO #### [facility] [address] [place] [address] Dr. Dandy Dobson Urea nitrogen [Mass/Vol] 9.0 mg/dL Normal 7.0-18.0 [facility] Comment on above: Performed By: #### E RUR, UMICRO #### [facility] [address] [place] [address] Dr. Dandy Dobson Urea nitrogen/Creatinine [Mass ratio] 12.5 mg/mg Normal [facility] Comment on above: Performed By: #### E RUR, UMICRO #### [facility] [address] [place] [address] Dr. Dandy Rausch 01-22-2021 [facility] Telephone ([facility]) YARELIAPRYL ([id number]) 1980 F Date Time Provider Department 01/22/21 [facility] During your visit today, we recorded the following information about you: Carla Jacobo 01/22/2021 9:01 AM Signed Patient called in [...] call patient to schedule. Thank you. Carla Weber APRN.TRESA 01/22/2021 10:31 AM Signed Yes patient can be added to my schedule. Job Weber APRN.TRESA Jacobo 01/22/2021 10:39 AM Signed Called and spoke with patient. Patient has been scheduled to see Job 01/28 @ 11:00. Patient is aware she will be seeing Job for this appointment. Carla Jacobo Allergies As of Date: 01/22/2021 Noted Allergy Reaction OXYCODONE-ACETAMINOP HEN 09/09/2020 2 - Rash Comments: Has tolerated norco in the past Date Reviewed: 01/22/2021 Reviewed by: Job Weber APRN.ALARM INSTALLER - Fully Assessed Reason for Visit: Future [...] 10/02/2020 Heart murmur [R01.1] 10/02/2020 Patient is Episcopalian [Z78.9] 10/02/2020 Encounter Status:Closed by CARLA [facility]ANT[facility]AGO [facility]) APRYL DOWNS ([id number]) 1980 F Date Time Provider Department 10/28/20 AYAH MUÑOZ [facility] During your visit today, we recorded the following information about you: Kya Wyatt 10/28/2020 9:19 AM Signed Patient had surgery [...] Left message to call office back. Marjorie Kaiser 10/29/2020 12:31 PM Signed Patient returned RN [...] Diagnosis:Excessive bleeding in premenopausal period [N92.4] Order(s):CBC [CB] Order #: [id number] FUTURE Prescriptions as of 10/28/2020 Sig: METFORMIN [...] Heart murmur [R01.1] 10/02/2020 More... Patient is Episcopalian [Z78.9] 10/02/2020 More... Encounter Status:Closed by MARJORIE NOBLES RN on 10/29/20 [facility] CNPTyra [facility] ([id number]) APRYL DOWNS ([id number]) 1980 F Date Time Provider Department 10/06/20 AYAH MUÑOZ [id number] During your visit today, we recorded the following information about you: Yoli Jacobo 10/06/2020 9:46 AM Signed Apryl Yareli called today. : 1980 Allergies: Oxycodone-Acetaminop hen (home) [phone] (cell) Reason for call: Patient calling with [...] and today. Please advise if appropriate. Lana Muñoz MD 10/06/2020 11:54 AM Signed Work excuse is ok. D/C and odor is normal for 4-6 weeks after ablation. No need for ABx. Thank you. Lana Blackmon RN 10/06/2020 12:59 PM Signed Called pt. Advised of provider message. Work release sent via Vetr. Pt verbalized understanding. Lana Blackmon RN Allergies [...] Heart murmur [R01.1] 10/02/2020 More... Patient is Episcopalian [Z78.9] 10/02/2020 More... Letter Text Encounter Status:Closed by LANA BLACKMON RN on 10/06/20 Normal [facility] ANES POSTPROC EVALon 021 ANES POSTPROC EVAL HNO ID: [id number] Author: Naz Caballero Service: Anesthesiology Author Type: Anesthesiologist Type: Anesthesia Postprocedure Evaluation Filed: 10/03/2020 8:32 AM Note Text: POST ANESTHESIA EVALUATION NOTE : 1980 Procedure Summary Date: 10/03/20 Room / Location: OR05 / AV OR Anesthesia Start: 0742 Anesthesia Stop: 0816 Procedures: HYSTEROSCOPY WITH ENDOMETRIAL ABLATION ANN (N/A [...] October 03, 2020 TIME: 8:32 AM CSN: [id number] [facility] ANES PRE-OPon 10-03-2020 ANES PRE-OP HNO ID: [id number] Author: Naz Caballero Service: Anesthesiology Author Type: [...] October 03, 2020 TIME: 7:02 AM CSN: [id number] Normal [facility] OPERATIVE NOon 10-03-2020 OPERATIVE NO HNO ID: [id number] Author: Ayah Muñoz Service: Gynecology Author Type: Physician Type: Operative Report Filed: 10/03/2020 4:23 PM Note Text: [facility] - Operative Report APRYL DOWNS : 1980 AGE: 40. SEX: F PATIENT TYPE: A HOSP SVC: OBGYN LOCATION: [facility] ATTENDING PHYSICIAN: Ayah Muñoz M.D. CSN NUMBER: [id number] DATE OF SURGERY/PROCEDURE: 10/03/2020 INCISION/PROCEDURE START TIME: 7:57 AM INCISION CLOSE/PROCEDURE END TIME: 8:07 AM PREOPERATIVE DIAGNOSIS: Menorrhagia. POSTOPERATIVE DIAGNOSIS: Menorrhagia. SURGEON: Ayah Muñoz M.D. PHARMACEUTICAL SALES SPECIALIST: None. SURGERY/PROCEDURE: Hysteroscopy, Ann endometrial ablation, D [...] [facility] The patient was prepped and draped in [...] BLOOD LOSS: 5 mL. Ayah Muñoz M.D. FSB:[id number] /[id number] Normal [facility] SURGICAL PATHOLOGYon 021 SURGICAL PATHOLOGY Specimen originated from [facility] Specimen #: [id number] Submitting Physician: AYAH MUÑOZ MD FINAL DIAGNOSIS [...] in five cassettes. Gross examination performed at [facility], [address] [place] [address] 10/03/2020 12:53:09 PM Date of Report: 10/06/2020 Date of Procedure: 10/03/2020 Date of Receipt: 10/03/2020 Submitted by: AYAH MUÑOZ MD Location: [facility] Diagnostic interpretation performed at [facility], [address] [place] [address]. CLIA Number: [id number] Normal [facility] Comment on above: Performed By: [...] murmur [R01.1] Heart murmur [R01.1] Patient is Episcopalian [Z78.9] Allergies: Oxycodone-Acetaminop hen Date Verified: 2/5/21 Lab Values Lab Value Units Date High Low POTA* 4.1 mmol/L 09/19/2020 5.1 3.7 BRISEIDA* 29.5 % 09/24/2020 46.0 36.0 Progress Notes (BOND BROKER JUANITA 650): Marjorie Nobles RN 09/25/2020 2:34 PM [...] PM Signed Pt scheduled for 10/03/20 at [facility] TBD for Hysteroscopy endometrial ablation DANDC for menorrhagia AND anemia through [facility] today. Pt notified of the all surgery information above. Pt aware that she will require pre op testing prior to surgery and PAT number given to pt to call and schedule. Pt aware PAT needs completed to proceed with surgery. Pt is aware she will need to be at [facility] as instructed by [facility] and no solid food after midnight. The [facility] facility will contact the pt the day [...] for surgical case scheduled for 10/03/20 at [facility], please approve if appropriate. Spoke with pt. Pt aware if she can provider hard copy of positive test then she will not need test but if not she needs to be tested per [facility] surgery scheduling. COVID scheduled for 10/01/20 at 12:30 pm at [facility], pt aware. Progress Notes (BRISEIDA BRITO ): Halima Alvarez 09/24/2020 11:12 AM Signed Pt states that she is very tired and weak. Halima Weber APRN.CNP 09/26/2020 3:27 PM Signed PATIENT NAME: Apryl [...] deficiency anemia, seen for scheduled follow-up. (Former [facility] patient) INTERIM HISTORY: Apryl Downs returns for [...] on 10/09/2020 for a pelvic ultrasound the brick pointer's office will be calling her to set [...] medications. Continue management per PCP. Job Weber APRN.ALARM INSTALLER Normal [facility] BASIC METABOLIC PANELon Calcium [Mass/Vol] 8.4 mg/dL Low 8.6-10.3 [facility] Comment on above: Order Comment: No: D o not add to previous draw Performed By: #### 3 3719 #### [facility] [address] [place] [address], [facility] Chloride [Moles/Vol] 108 mmol/L High 98-107 [facility] Comment on above: Order Comment: No: D o not add to previous draw Performed By: #### 3 0889 #### [facility] [address] [place] [address], [place] CO2 [Moles/Vol] 25 mmol/L Normal 21-31 [facility] Comment on above: Order Comment: No: D o not add to previous draw Performed By: #### 3 1079 #### [facility] [address] [place] [address], [facility] Creatinine [Mass/Vol] 0.45 mg/dL Low 0.60-1.20 [facility] Comment on above: Order Comment: No: D o not add to previous draw Performed By: #### 3 1079 #### [facility] [address] [place] [address], [facility] GFR/1.73 sq M predicted among blacks MDRD (S/P/Bld) [Vol rate/Area] mL/min/{1.73_m2} Normal >60 [facility] Comment on above: Order Comment: No: D o not add to previous draw Performed By: #### 3 1079 #### [facility] [address] [place] [address], [facility] GFR/1.73 sq M predicted among non-blacks MDRD (S/P/Bld) [Vol rate/Area] mL/min/{1.73_m2} Normal >60 [facility] Comment on above: Order Comment: No: D o not add to previous draw Performed By: #### 3 1079 #### [facility] [address] [place] [address], [place] Glucose [Mass/Vol] 123 mg/dL High 70-100 [facility] Comment on above: Order Comment: No: D o not add to previous draw Performed By: #### 3 1079 #### [facility] [address] [place] [address], [place] Potassium [Moles/Vol] 3.7 mmol/L Normal 3.5-5.1 [facility] Comment on above: Order Comment: No: D o not add to previous draw Performed By: #### 3 1079 #### [facility] [address] [place] [address], [facility] Sodium [Moles/Vol] 137 mmol/L Normal 136-145 [facility] Comment on above: Order Comment: No: D o not add to previous draw Performed By: #### 3 1079 #### [facility] [address] [place] [id number], [facility] Urea nitrogen [Mass/Vol] 14 mg/dL Normal 7-25 [facility] Comment on above: Order Comment: No: D o not add to previous draw Performed By: #### 3 1079 #### [facility] [address] [facility] [address], [facility] CBC COMPLETE BLOOD COUNTon 0 04-02-2019 Erythrocyte distribution width (RBC) [Ratio] 13.4 % Normal 11.5-15.0 [facility] Comment on above: Order Comment: No: D o not add to previous draw Performed By: #### 3 1079 #### [facility] [address] [place] [address], [facility] Hematocrit (Bld) [Volume fraction] 36.6 % Normal 36.0-45.0 [facility] Comment on above: Order Comment: No: D o not add to previous draw Performed By: #### 3 1079 #### [facility] [address] [place] [id number], [facility] Hemoglobin (Bld) [Mass/Vol] 11.7 g/dL Low 12.0-15.0 [facility] Comment on above: Order Comment: No: D o not add to previous draw Performed By: #### 3 1079 #### [facility] [address] [place] [id number], [facility] MCH (RBC) [Entitic mass] 29.2 pg Normal 27.0-33.0 [facility] Comment on above: Order Comment: No: D o not add to previous draw Performed By: #### 3 1079 #### [facility] [address] MCHC (RBC) [Mass/Vol] 32.0 g/dL Normal 32.0-35.0 [facility] Comment on above: Order Comment: No: D o not add to previous draw Performed By: #### 3 1079 #### [facility] [address] [place] [address], [facility] MCV (RBC) [Entitic vol] 91.3 fL Normal 82.0-98.0 [facility] Comment on above: Order Comment: No: D o not add to previous draw Performed By: #### 3 1079 #### [facility] [address] [place] [address], [facility] Nucleated RBC/100 WBC (Bld) [Ratio] 0 % Normal 0-0 [facility] Comment on above: Order Comment: No: D o not add to previous draw Performed By: #### 3 1079 #### [facility] [address] [place] [address], [facility] PLAT CNT 227 10*3/uL Normal 150-400 [facility] Comment on above: Order Comment: No: D o not add to previous draw Performed By: #### 3 1079 #### [facility] [address] [place] [address], [facility] RBC (Bld) [#/Vol] 4.01 10*6/uL Normal 3.80-5.00 [facility] Comment on above: Order Comment: No: D o not add to previous draw Performed By: #### 3 1079 #### [facility] [address] [facility] [place] [address], [facility] WBC (Bld) [#/Vol] 5.58 10*3/uL Normal 4.00-10.60 [facility] Comment on above: Order Comment: No: D o not add to previous draw Performed By: #### 3 1079 #### [facility] [address] [place] [address], [facility] POC GLUCOSE LABon 08-05-2019 Glucose [Mass/Vol] 135 mg/dL High 70-100 [facility] Comment on above: Performed By: #### 3 1079 #### [facility] [address] [place] [address], [place] Glucose [Mass/Vol] 124 mg/dL High 70-100 [facility] Comment on above: Performed By: #### 3 1079 #### [facility] [address] [place] [address], [place] URINALYSIS REFLEXon 04-02-20 19 AMORPHOUS FEW Abnormal NONE SEEN [facility] Comment on above: Order Comment: No: D o not add to previous draw Performed By: #### 3 1079 #### [facility] [address] [place] [address], [place] Appearance (U) SL CLOUDY Abnormal CLEAR [facility] Comment on above: Order Comment: No: D o not add to previous draw Performed By: #### 3 1079 #### [facility] [address] [place] [address], [place] Bilirubin [Mass/Vol] Negative Normal NEGATIVE [facility] Comment on above: Order Comment: No: D o not add to previous draw Performed By: #### 3 1079 #### [facility] [address] [place] [address], [place] BLOOD LARGE Abnormal NEGATIVE [facility] Comment on above: Order Comment: No: D o not add to previous draw Performed By: #### 3 1079 #### [facility] [address] [place] [address], [place] Color (U) YELLOW Normal YELLOW [facility] Comment on above: Order Comment: No: D o not add to previous draw Performed By: #### 3 1079 #### [facility] [address] [place] [address], [place] EPIS MANY Abnormal FEW,OCC,NONE SEEN [facility] Comment on above: Order Comment: No: D o not add to previous draw Performed By: #### 3 1079 #### [facility] [address] [place] [address], [place] Glucose [Mass/Vol] Negative Normal NEGATIVE [facility] Comment on above: Order Comment: No: D o not add to previous draw Performed By: #### 3 1079 #### [facility] [address] [place] [address], [place] KETONE Negative Normal NEGATIVE [facility] Comment on above: Order Comment: No: D o not add to previous draw Performed By: #### 3 1079 #### [facility] [address] [place] [address], [place] LEUK TITI Negative Normal NEGATIVE [facility] Comment on above: Order Comment: No: D o not add to previous draw Performed By: #### 3 1079 #### [facility] [address] [place] [address], [place] MUCUS THREADS FEW Abnormal NONE SEEN [facility] Comment on above: Order Comment: No: D o not add to previous draw Performed By: #### 3 1079 #### [facility] [address] [place] [address], [place] Nitrite Ql (U) Negative Normal NEGATIVE [facility] Comment on above: Order Comment: No: D o not add to previous draw Performed By: #### 3 1079 #### [facility] [address] [place] [address], [place] pH (Bld) 7.0 Normal 5.0-8.0 [facility] Comment on above: Order Comment: No: D o not add to previous draw Performed By: #### 3 1079 #### [facility] [address] [place] [address], [place] Protein (U) [Mass/Vol] Negative Normal NEGATIVE e [facility] Comment on above: Order Comment: No: D o not add to previous draw Performed By: #### 3 1079 #### [facility] [address] [place] [address], [facility] RBC (U) [#/Vol] 0-2 Abnormal NONE SEEN [facility] Comment on above: Order Comment: No: D o not add to previous draw Performed By: #### 3 1079 #### [facility] [address] [place] [address], [facility] SPEC GRAV 1.017 Normal 1.015-1.020 [facility] Comment on above: Order Comment: No: D o not add to previous draw Performed By: #### 3 1079 #### [facility] [address] [place] [address], [facility] UA COMMENT 2 UROBILINOGEN (E.U./DL) 4.0 Normal [facility] Comment on above: Order Comment: No: D o not add to previous draw Performed By: #### 3 1079 #### [facility] [address] [place] [address], [facility] WBC UA 0-2 Abnormal NONE SEEN [facility] Comment on above: Order Comment: No: D o not add to previous draw Performed By: #### 3 1079 #### [facility] [address] [facility] [address] BASIC METABOLIC PANELon 08-0 Calcium [Mass/Vol] 8.6 mg/dL Normal 8.6-10.3 [facility] Comment on above: Order Comment: No: D o not add to previous draw Performed By: #### 4 1000, 76170, 07112 #### [facility] [address] [place] [id number], [facility] Chloride [Moles/Vol] 107 mmol/L Normal 98-107 [facility] Comment on above: Order Comment: No: D o not add to previous draw Performed By: #### 4 1000, 37739, 69332 #### [facility] [address] [place] [address], [place] CO2 [Moles/Vol] 24 mmol/L Normal 21-31 [facility] Comment on above: Order Comment: No: D o not add to previous draw Performed By: #### 4 1000, 83230, 36970 #### [facility] [address] [place] [address], [place] Creatinine [Mass/Vol] 0.50 mg/dL Low 0.60-1.20 [facility] Comment on above: Order Comment: No: D o not add to previous draw Performed By: #### 4 1000, , 92957 #### [facility] [address] [place] [address], [place] GFR/1.73 sq M predicted among blacks MDRD (S/P/Bld) [Vol rate/Area] mL/min/{1.73_m2} Normal >60 [facility] Comment on above: Order Comment: No: D o not add to previous draw Performed By: #### 4 1000, , [id number] #### [facility] [address] [place] [address], [place] GFR/1.73 sq M predicted among non-blacks MDRD (S/P/Bld) [Vol rate/Area] mL/min/{1.73_m2} Normal >60 [facility] Comment on above: Order Comment: No: D o not add to previous draw Performed By: #### 4 1000, , [id number] #### [facility] [address] [place] [address], [place] Glucose [Mass/Vol] 106 mg/dL High 70-100 [facility] Comment on above: Order Comment: No: D o not add to previous draw Performed By: #### 4 1000, , 98330 #### [facility] [address] [place] [address], [place] Potassium [Moles/Vol] 3.3 mmol/L Low 3.5-5.1 [facility] Comment on above: Order Comment: No: D o not add to previous draw Performed By: #### 4 1000, 80020, 74036 #### [facility] [address] [place] [id number], [facility] Sodium [Moles/Vol] 139 mmol/L Normal 136-145 [facility] Comment on above: Order Comment: No: D o not add to previous draw Performed By: #### 4 1000, 71759, 32207 #### [facility] [address] [place] [address], [facility] Urea nitrogen [Mass/Vol] 11 mg/dL Normal 7-25 [facility] Comment on above: Order Comment: No: D o not add to previous draw Performed By: #### 4 1000, 88034, 62802 #### [facility] [address] [place] [id number] CBC COMPLETE BLOOD COUNTon 0 - Erythrocyte distribution width (RBC) [Ratio] 13.5 % Normal 11.5-15.0 [facility] Comment on above: Order Comment: No: D o not add to previous draw Performed By: #### 5 3392, 74082 #### [facility] [address] [place] [id number], [place] Hematocrit (Bld) [Volume fraction] 36.7 % Normal 36.0-45.0 [facility] Comment on above: Order Comment: No: D o not add to previous draw Performed By: #### 5 5754, 44034 #### [facility] [address] [place] [address], [place] Hemoglobin (Bld) [Mass/Vol] 11.9 g/dL Low 12.0-15.0 [facility] Comment on above: Order Comment: No: D o not add to previous draw Performed By: #### 5 0602, 76608 #### [facility] [address] [place] [id number], [place] MCH (RBC) [Entitic mass] 29.0 pg Normal 27.0-33.0 [facility] Comment on above: Order Comment: No: D o not add to previous draw Performed By: #### 5 06, 05558 #### [facility] [address] [place] [address], [facility] MCHC (RBC) [Mass/Vol] 32.4 g/dL Normal 32.0-35.0 [facility] Comment on above: Order Comment: No: D o not add to previous draw Performed By: #### 5 607, 67282 #### [facility] [address] [facility] [address] MCV (RBC) [Entitic vol] 89.5 fL Normal 82.0-98.0 [facility] Comment on above: Order Comment: No: D o not add to previous draw Performed By: #### 5 607, 30738 #### [facility] [address] [facility] [address] Nucleated RBC/100 WBC (Bld) [Ratio] 0 % Normal 0-0 [facility] Comment on above: Order Comment: No: D o not add to previous draw Performed By: #### 5 607, 15366 #### [facility] [address] [facility] [place] [address], [facility] PLAT CNT 226 10*3/uL Normal 150-400 [facility] Comment on above: Order Comment: No: D o not add to previous draw Performed By: #### 5 607, 52768 #### [facility] [address] [facility] [place] [address], [facility] RBC (Bld) [#/Vol] 4.10 10*6/uL Normal 3.80-5.00 [facility] Comment on above: Order Comment: No: D o not add to previous draw Performed By: #### 5 607, 73461 #### [facility] [address] WBC (Bld) [#/Vol] 7.18 10*3/uL Normal 4.00-10.60 [facility] Comment on above: Order Comment: No: D o not add to previous draw Performed By: #### 5 0608, 40265 #### [address] CRP HIGH SENSITIVITYon 04-01 HIGH SENSITIVITY CRP 4.39 mg/L Normal [facility] Comment on above: Order Comment: No: D o not add to previous draw Result Comment: HIGH SENSITIVITY CRP (hs_CRP) REFERENCE RANGES Less than 1.0 mg/L: lowest tertile, lowest risk 1.0-3.0 mg/L: middle tertile, average risk Greater than 3.0 mg/L: highest tertile, highest risk Performed By: #### 3 1079 #### [facility] [address] BRAIN WO CONTRASTon 04-01 CT BRAIN WO CONTRAST [facility] Department of Radiology [address] [place] [id number] Patient Name: APRYL DOWNS : 1980 Sex: F Age: Race: Other Pt. Location: [place] [address] Patient Status: I Ordered Date: 04/01/2019 3:00:00 [...] findings. Electronically signed by:Alice Coello. Transcribed by: [email or web address], User Resident: RYAN GONZALEZ Electronically Signed by: ALICE COELLO @ 04/02/2019 08:59 AM I personally read this/these film(s) with this resident Normal [facility] Comment on above: Order Comment: No: D o not add to previous draw MAGNESIUM BLOODon 04-01-2019 Magnesium [Mass/Vol] 2.2 mg/dL Normal 1.9-2.7 [facility] Comment on above: Order Comment: No: D o not add to previous draw Performed By: #### 4 1000, 99333, 54274 #### [facility] [address] [place] [address], [facility] PHOSPHORUS BLOODon 9 Phosphate [Mass/Vol] 3.9 mg/dL Normal 2.5-5.0 [facility] Comment on above: Order Comment: No: D o not add to previous draw Performed By: #### 4 1000, 87507, 01605 #### [facility] [address] [facility]. [address] POC GLUCOSE LABon 04-01-2019 Glucose [Mass/Vol] 120 mg/dL High 70-100 [facility] Comment on above: Performed By: #### 3 1079 #### [facility] [address] [facility] [place] [address], [facility] SEDIMENTATION RATEon 019 SED RATE 23 mm/hr High 0-20 [facility] Comment on above: Order Comment: No: D o not add to previous draw Performed By: #### 5 0608, 15032 #### [facility] [address] [facility]. [address] BRAIN PERFUSIONon 019 CT BRAIN PERFUSION [facility] Department of Radiology [address] [place] [phone] Patient Name: APRYL DOWNS : 1980 [...] FINDINGS: Please see report for dictation number [id number] CTA neck CTA brain and perfusion were all dictated together Electronically signed by:Etta Irvin. Transcribed by: [email or web address], User Resident: Electronically Signed by: ETTA IRVIN @ 04/09/2019 10:35 AM Normal [facility] Comment on above: Order Comment: No: D o not add to previous draw CTA NECKon 03-31-2019 CTA NECK [facility] Department of Radiology [address] [place] [phone] Patient Name: APRYL DOWNS : 1980 [...] abnormality Electronically signed by:Etta Irvin. Transcribed by: [email or web address], User Resident: Electronically Signed by: ETTA IRVIN @ 03/31/2019 04:31 PM Normal [facility] Comment on above: Order Comment: Strok e transfer, lt side weakness MRI BRAIN W WO CONTRASTon MRI BRAIN W WO CONTRAST [facility] Department of Radiology [address] [place] [phone] Patient Name: APRYL DOWNS : 1980 Sex: F Age: Race: Other Pt. Location: [place] [address] Patient Status: I Ordered Date: 03/31/2019 4:10:00 [...] findings. Electronically signed by:Etta Irvin. Transcribed by: [email or web address], User Resident: VICKIE ELLIS Electronically Signed by: ETTA IRVIN @ 04/01/2019 09:56 AM I personally read this/these film(s) with this resident Normal [facility] Comment on above: Order Comment: R/O C VA MRI CERVICAL SPINE W WO CONT LIBRATon 03-31-2019 MRI CERVICAL SPINE W WO CONTRAST [facility] Department of Radiology [address] [place] [phone] Patient Name: APRYL DOWNS : 1980 Sex: F Age: Race: Other Pt. Location: [place] [address] Patient Status: I Ordered Date: 03/31/2019 4:05:00 [...] findings. Electronically signed by:Etta Irvin. Transcribed by: [email or web address], User Resident: VICKIE ELLIS Electronically Signed by: ETTA IRVIN @ 04/01/2019 09:53 AM I personally read this/these film(s) with this resident Normal [facility] Comment on above: Order Comment: R/O C ord Compression POC GLUCOSE LABon 03-31-2019 Glucose [Mass/Vol] 118 mg/dL High 70-100 [facility] Comment on above: Performed By: #### 8 5499 #### [facility] [address] [place] [address], [facility] TOX PANEL URINEon 03-31-2019 50 THC Negative Normal NEGATIVE [facility] Comment on above: Order Comment: No: D o not add to previous draw Performed By: #### 3 1079 #### [facility] [address] [facility] [place] [address], [facility] BARBITURATES Negative Normal NEGATIVE [facility] Comment on above: Order Comment: No: D o not add to previous draw Performed By: #### 3 1079 #### [facility] [address] [place] [address], [place] Benzodiazepines Ql (U) Negative Normal NEGATIVE Th e [facility] Comment on above: Order Comment: No: D o not add to previous draw Performed By: #### 3 1079 #### [facility] [address] [place] [address], [place] Cocaine Ql (U) Negative Normal NEGATIVE [facility] Comment on above: Order Comment: No: D o not add to previous draw Performed By: #### 3 1079 #### [facility] [address] [place] [address], [facility] Methadone Ql (U) Negative Normal NEGATIVE [facility] Comment on above: Order Comment: No: D o not add to previous draw Performed By: #### 3 1079 #### [facility] [address] [place] [address], [place] MONO AMPHET Negative Normal NEGATIVE [facility] Comment on above: Order Comment: No: D o not add to previous draw Performed By: #### 3 1079 #### [facility] [address] [place] [address], [place] Opiates Ql (U) Negative Normal NEGATIVE [facility] Comment on above: Order Comment: No: D o not add to previous draw Performed By: #### 3 1079 #### [facility] [address] [place] [address], [place] Phencyclidine Ql (U) Negative Normal NEGATIVE [facility] Comment on above: Order Comment: No: D o not add to previous draw Performed By: #### 3 1079 #### [facility] [address] [place] [address], [place] PROPOXYPHENE Negative Normal NEGATIVE [facility] Comment on above: Order Comment: No: D o not add to previous draw Performed By: #### 3 1079 #### [facility] [address] [place] [address], [facility] TRICYCLICS Negative Normal NEGATIVE [facility] Comment on above: Order Comment: No: D o not add to previous draw Performed By: #### 3 1079 #### [facility] [address] [place] [address], [facility] Vital Signs Date Time Vital Sign Value Performing Clinician Facility 03-19-2024 10:53-0400 Body height 161.29 cm [facility] 03-19-2024 10:53-0400 Body mass index (BMI) [Ratio] 34.5 kg/m2 [facility] 03-19-2024 10:53-0400 Body weight 89.81 kg [facility] 06-14-2023 10:30-0400 Body height 161.29 cm Amanda Villafana Other [employer] [facility] [employer] Other 06-14-2023 10:30-0400 Body mass index (BMI) [Ratio] 33.13 kg/m2 Amanda Villafana Other [facility] Other 06-14-2023 10:30-0400 Body weight 86.18 kg Amanda Villafana Other [facility] Other 06-14-2023 10:30-0400 Diastolic blood pressure 84 mm[Hg] Amanda Villafana Other [facility] Other 06-14-2023 10:30-0400 Systolic blood pressure 129 mm[Hg] Amanda Villafana Other [facility] Other 02-04-2022 21:00-0400 Diastolic blood pressure 95 mm[Hg] Pete Maldonado [facility] 02-04-2022 21:00-0400 Heart rate 78 /min Pete Joel [facility] 02-04-2022 21:00-0400 Hourly Rounding Pete Joel [facility] 02-04-2022 21:00-0400 Mean blood pressure 126 mm[Hg] Pete Joel [facility] 02-04-2022 21:00-0400 Promise to Return Pete Joel [facility] 02-04-2022 21:00-0400 Respiratory rate 14 /min Pete Joel [facility] 02-04-2022 21:00-0400 SaO2% (BldA) [Mass fraction] 99 % Pete Joel [facility] 02-04-2022 21:00-0400 Systolic blood pressure 189 mm[Hg] Pete Joel [facility] 02-04-2022 20:00-0400 Diastolic blood pressure 94 mm[Hg] Pete Joel [facility] 02-04-2022 20:00-0400 Heart rate 77 /min Pete Joel [facility] 02-04-2022 20:00-0400 Mean blood pressure 125 mm[Hg] Pete Joel [facility] 02-04-2022 20:00-0400 Systolic blood pressure 187 mm[Hg] Pete Joel [facility] 02-04-2022 19:00-0400 Diastolic blood pressure 85 mm[Hg] Pete Joel [facility] 02-04-2022 19:00-0400 Heart rate 74 /min Pete Joel [facility] 02-04-2022 19:00-0400 Mean blood pressure 114 mm[Hg] Pete Joel [facility] 02-04-2022 19:00-0400 Respiratory rate 11 /min Pete Maldonado [facility] 02-04-2022 19:00-0400 SaO2% (BldA) [Mass fraction] 97 % Pete Maldonado [facility] 02-04-2022 19:00-0400 Systolic blood pressure 172 mm[Hg] Pete Maldonado [facility] 02-04-2022 18:22-0400 gluc 146 mg/dL Pete Malodnado [facility] 02-04-2022 18:22-0400 gluc Pete Maldonado [facility] 02-04-2022 17:55-0400 Body temperature 98.24 [degF] Pete Maldonado [facility] 02-04-2022 17:55-0400 Heart rate 76 /min Pete Maldonado [facility] 02-04-2022 17:55-0400 Respiratory rate 18 /min Pete Maldonado [facility] Encounters Encounter Date Encounter Type Care Provider Facility Start: 03-19-2024 End: 03-19-2024 ambulatory [facility] Work Phone: Start: 03-19-2024 End: 03-19-2024 Patient encounter procedure Formerly [facility], [facility] [facility] Work Phone: Start: 03-14-2024 Non-patient / Non-visit Formerly [facility], [facility] [facility] Work Phone: Start: 01-09-2024 ambulatory [facility] Start: 09-26-2023 End: 09-26-2023 ambulatory Amanda Villafana Other [facility] Other Start: 09-26-2023 Telephone encounter Amanda Villafana [facility] Start: 08-24-2023 ambulatory Mateo Mosquera NIDA Facility :[facility] Start: 08-05-2023 ambulatory AUSTIN MURPHY Facility: [facility] Start: 08-04-2023 Telephone encounter Amanda Villafana [facility] Start: 08-04-2023 End: 08-04-2023 ambulatory Amanda Villafana Other [facility] Other Start: 07-05-2023 End: 07-05-2023 ambulatory Amanda Villafana Other [facility] Other Start: 07-05-2023 Telephone encounter Amanda Villafana [facility] Start: 06-28-2023 End: 06-28-2023 ambulatory Amanda Villafana Other [facility] Other Start: 06-28-2023 Telephone encounter Amanda Villafana [facility] Start: 06-27-2023 End: 06-27-2023 ambulatory Amanda Villafana Other [facility] Other Start: 06-27-2023 Telephone encounter Amanda Villafana [facility] Start: 06-23-2023 End: 06-23-2023 ambulatory Amanda Villafana Other [facility] Other Start: 06-23-2023 Telephone encounter Amanda Villafana [facility] Start: 06-14-2023 End: 06-14-2023 ambulatory Amanda Villafana Other [facility] Other Start: 06-14-2023 Office outpatient vi sit 15 minutes Amanda Villafana [facility] Start: 05-31-2023 End: 05-31-2023 ambulatory Amanda Villafana Other [facility] Other Start: 05-31-2023 Telephone encounter Amanda Villafana [facility] Start: 03-08-2023 End: 03-09-2023 ambulatory AUSTIN MURPHY Facility[facility] Start: 03-08-2023 End: 03-08-2023 Patient encounter procedure AUSTIN MURPHY [facility] Start: 12-13-2022 End: 12-22-2022 Pre-admission assessment AUSTIN MURPHY [facility] Start: 12-12-2022 End: 12-12-2022 ambulatory TRESA [facility] ANITHAHOLZ Facility:[facility] Start: 11-29-2022 End: 11-30-2022 ambulatory ALARM INSTALLER AUSTIN ANITHAHOLZ Facility:[facility] Start: 10-13-2022 ambulatory ALARM INSTALLER AUSTIN ANITHAHOLZ Facil ity:[facility] Start: 09-14-2022 End: 09-15-2022 ambulatory ALARM INSTALLER AUSTIN ANITHAHOLZ Facility:[facility] Start: 06-09-2022 End: 06-10-2022 ambulatory ALARM INSTALLER AUSTIN ANITHAHOLZ Facility:[facility] Start: 05-06-2022 End: 05-26-2022 Pre-admission assessment AUSTIN MURPHY [facility] Start: 02-15-2022 End: 02-16-2022 ambulatory TRESA TURNERZ Facility:[facility] Start: 02-04-2022 End: 02-04-2022 Emergency department patient visit Pete Maldonado [facility] Start: 12-31-2021 End: 12-31-2021 ambulatory TRESA TURNERZ Facility:[facility] Start: 03-31-2019 End: 04-02-2019 Evaluation and management of inpatient PROVIDER UNKNOWN Facility:[facility] Procedures Date Procedure Procedure Detail Performing Clinician section Pete Maldonado section Pete Maldonado H/O: tubal ligation Pete sigala Plan of Treatment Date Care Activity Detail Author XR Foot - left GE 3 Views [facility] Payers Date Payer Category Payer Unknown [id number] 2.16.8 [id number] 1980 Unknown [id number] 2.16.84 [id number] 1980 Unknown [id number] 2.16.84 [id number] 1980 Unknown [id number] 2.16.84 [id number] 1978 Unknown [id number] 2.16.84 [id number] 1980 Unknown [id number] 2.16.84 [id number] 1978 Unknown [id number] 2.16.84 [id number] 1978 Unknown [id number] 2.16.84 [id number] 1980 Unknown [id number] 2.16.8 [id number] 1980 Unknown [id number] 2.16.8 [id number] 1978 Unknown [id number] 2.16.8 [id number] 1959 Unknown [id number] 1959 Unknown [id number] Unknown [facility] [id number] [facility] [id number] Social History Date Type Detail Facility Tobacco Unknown if ever smoked [facility] Comment on above: denies Sex Assigned At Female [facility] Tobacco smoking status No Smokin g Status Entered [facility] Start: [facility]14[facility]2023 [facility] Start: 1980 Sex Assigned At Female [facility] Clinical Notes 11-07-2020 to 09-26-2023 Note Date & Type Note Facility 09-26-2023 Evaluation note Encounter Date Diagnosis Assessment Notes Aug, Type 2 diabetes mellitus with hyperglycemia , without long-term current use of insulin (ICD-10 - E11.65) [facility] Other 11-07-2023 Evaluation note* Encounter Date Diagnosis Assessment Notes Treatment Notes Treatment Clinical Notes Jun, Other iron deficiency anemia (ICD-10 - D50.8) [facility] Other 10-31-2023 Evaluation note* Encounter Date Diagnosis Assessment Notes Treatment Notes Treatment Clinical Notes May, Type 2 diabetes mellitus with hyperglycemia, without long-term current use of insulin (ICD-10 - E11.65) [facility] Other 10-30-2023 Evaluation note* Encounter Date Diagnosis Assessment Notes Treatment Notes Treatment Clinical Notes May, Type 2 diabetes mellitus with hyperglycemia, without long-term current use of insulin (ICD-10 - E11.65) [facility] Other 10-17-2023 Evaluation note* Encounter Date Diagnosis Assessment Notes Treatment Notes Treatment Clinical Notes May, Other iron deficiency anemia (ICD-10 - D50.8) obtain labs. recheck due to fatigue May, Type 2 diabetes mellitus with hyperglycemia, without long-term current use of insulin (ICD-10 - E11.65) Due for A1C will reach out to [facility] lenora caruso. Presently it is covered, but her glucose of 220 indicates dose increase. Will sent paperwork for PA again. [facility] Other 10-03-2023 Evaluation note* Encounter Date Diagnosis Assessment Notes Treatment Notes Treatment Clinical Notes May, Type 2 diabetes mellitus with hyperglycemia, without long-term current use of insulin (ICD-10 - E11.65) [facility] Other 07-11-2023 Evaluation + Plan note Diagnostic Tests Pending * T3 Free 03/08/23 [facility]06-01-2023 History general Narrative - Reported* Type Description Date Medical History DM Medical History hypothyroid Medical History Anemia Surgical History C SECTION X's 2 Surgical History Left Oophorectomy 01/2023 Hospitalization History SEE ABOVE SURGERY [place] [facility] Other 03-12-2021 NotePatient Outreach ([facility]) YARELIAPRYL ([id number]) 1980 F Date Time Provider Department 11/07/20 [facility]JOR[facility] UP During your visit today, we recorded the following information about you: Allergies As of Date: 11/07/2020 Noted Allergy Reaction OXYCODONE-ACETAMINOPHEN 09/09/2020 2 - Rash Comments: Has tolerated norco in the past Date Reviewed: 10/03/2020 Reviewed by: Bharti Lorenz (Rn) DAWNA Zavala - Fully Assessed Order(s):SARS-COVID VACCINE 1ST DOSE APPT [[id number]] Order #: [id number] FUTURE Prescriptions as of 11/07/2020 Sig: METFORMIN [...] Heart murmur [R01.1] 10/02/2020 More... Patient is [employer] [Z78.9] 10/02/2020 More... Encounter Status:Closed by JEFRY, PRODUSER on 11/10/20[facility] Evaluation + Plan note No data available for this section [facility] [place] [facility] Other Evaluation note* Diagnosis Onset Date Resolution Status Iron deficiency anemia acute Left foot pain acute Type 2 diabetes mellitus with hyperglycemia acute [facility] Work Phone: Hospital Discharge instructions No data available for this section [facility] No data available for this section [facility] Summary Purpose Family History No Family History Records Found Relationship Condition Age at Onset Recorded Date/T elana father Diabetes mellitus Unknown Malignant neoplasm Unknown Unknown Malignant neoplasm of esophagus Unknown mother Diabetes mellitus Unknown Heart disease Unknown Hypertension Unknown sister Malignant neoplasm Unknown Advance Directives No Advanced Directives Records Found Advance Directive Response Recorded Date/ Time Advance Directives No November 23 024 9:35am Hospital Course Note MR#: [id number] [facility] Pt. Name: Apryl Downs Admitted: 03/31/2019 Discharged: [...] is a 38-year-old female, who presented to [facility] with complaints of left-sided weakness and facial droop. The patient states she had driven herself to the emergency department. The patient states that she was at work when she st (more content not included)... Note HNO ID: [id number] Author: Anjali Muñoz Service: Gynecology Author Type: Physician Type: Brief Op Note Filed: 10/03/2020 8:14 AM Note Text: BRIEF OPERATIVE / PROCEDURE NOTE LOG ID: [id number] SURGERY/PROCEDURE DATE: 10/03/2020 INCISION/PROCEDURE START TIME: 7:57 AM INCISION CLOSE/PROCEDURE END TIME: 8:07 AM SURGEON(S)/PROCEDURALIST(S) AND PHARMACEUTICAL SALES SPECIALIST(S): Surgeon(s) and Role: * Ayah Muñoz - Dejuan No Additional Staff SURGERY/PROCEDURE(S): HSC'c ablation, DANDC. [...] the case. Procedure Findings Note HNO ID: [id number] Author: Anjali Muñoz Service: Gynecology Author Type: Physician Type: Brief Op Note Filed: 10/03/2020 8:14 AM Note Text: BRIEF OPERATIVE / PROCEDURE NOTE LOG ID: [id number] SURGERY/PROCEDURE DATE: 10/03/2020 INCISION/PROCEDURE START TIME: 7:57 AM INCISION CLOSE/PROCEDURE END TIME: 8:07 AM SURGEON(S)/PROCEDURALIST(S) AND PHARMACEUTICAL SALES SPECIALIST(S): Surgeon(s) and Role: * Ayah Muñoz - Dejuan No Additional Staff SURGERY/PROCEDURE(S): HSC'c ablation, DANDC. [...] iron deficienc y anemia (D50.8) Referral Organization [facility] Referring Provider First Name Amanda Referring Provider Last Name Khalida Referring Provider Specialty [facility] Referred Organization [facility] Referred Address [address], [place] Referred Provider Specialty Hematology Referral Priority Routine Chief Complaint and Reason for Visit Chief Complaint Amb Documentation follow up Reason for Visit Iron deficiency anem ia Left foot pain Type 2 diabetes mellitus with hyperglycemia Additional Source Comments INFORMATION SOURCE (unrecogn ized section and content) DATE CREATED AUTHOR 04/28/2019 [facility] DATE CREATED AUTHOR AUTHOR'S ORGANIZ ATION 10/07/2020 [facility] DATE CREATED AUTHOR AUTHOR'S ORGANIZ ATION 10/07/2020 [facility] DATE CREATED AUTHOR AUTHOR'S ORGANIZ ATION 10/03/2021 [facility] DATE CREATED AUTHOR AUTHOR'S ORGANIZ ATION 12/15/2022 [facility] DATE CREATED AUTHOR AUTHOR'S ORGANIZ ATION 08/25/2023 [facility] DATE CREATED AUTHOR AUTHOR'S ORGANIZ ATION 03/21/2024 [facility] (unrecognized sect ion and content) No Status Records FoundNo Status Records Found Care Team (unrecognized sect ion and content) Team Status: Active Member Role Status Dates Amanda Villafana MD Primary Care Provider Active Team Status: Active Member Role Status Dates Amanda Villafana MD Primary Care Provider Active Start: March 14, 2024 Marika Dumont LPN Attending Provider Active St art: March 14, 2024 Team Status: Inactive Member Role Status Dates Amanda Villafana MD Primary Care Provide r, Attending Provider Active Start: March 19, 2024 End: March 19, 2024 REASON FOR VISIT (unrecogniz ed section and content) [id number] month Fo llow up Goals (unrecognized section and content) Goals may be documented in a n alternate section FOR RECORDS PERTAINING TO PATIENTS WHO ARE [...] BE BASED ON THE PRIMARY CLINICAL RECORDS. [employer] [facility]. provides no warranty or guarantee of the accuracy or completeness of information in this document.
[2024-03-25 22:41] VITALS: BP 180/90; PULSE 80; TEMP 36.4; O2SAT 97; BMI 34.0
--- NOTE | 2024-03-25 23:15 | ED_ITS ---
HPI HPI - General Adult General Chief complaint: Headache Stated complaint: HEADACHE Time Seen by Provider: 03/25/24 23:11 Source: patient Mode of arrival: walk-in History of Present Illness HPI narrative: patient presents complaining of migraine headache. similar to past migraines. Associated with nausea and vomiting. No fever or neck stiffness. No paresthesia. no visual complaint or dizziness Related Data Home Medications ?Medication ?Instructions ?Recorded ?Confirmed amitriptyline 50 mg tablet 50 mg PO .QHS 02/10/23 09/02/23 levothyroxine 137 mcg tablet 137 mcg PO .aday 02/10/23 09/02/23 lisinopril 20 mg tablet 20 mg PO QDAY 02/10/23 09/02/23 tirzepatide 2.5 mg/0.5 mL 7.5 mg subcut QWEEK 02/10/23 09/02/23 subcutaneous pen injector (Emmanuel) metformin 750 mg tablet,extended 750 mg PO DAILY 08/06/23 09/02/23 release 24 hr Previous Rx's ?Medication ?Instructions ?Recorded amoxicillin 875 mg-potassium 1 tab PO BID #20 tabs 02/15/23 clavulanate 125 mg tablet hydrocortisone 1 % topical cream 1 applic topical BID PRN allergic 02/15/23 reaction #28.4 grams Allergies Allergy/AdvReac Type Severity Reaction Status Date / Time oxycodone [From Percocet] Allergy Intermediate Verified 09/02/23 21:53 Opioid HPI Opioid Management Most Recent Opioid Data: Last Pain Scale 8 03/26/24 01:09 Last ED Pain Assessment 03/26/24 01:09 Review of Systems ROS Status of ROS 10 or more systems reviewed and unremark able except as noted in history and below [facility] Medical History (Updated 03/26/24 @ 01:48 by Chandler Bain MD) Hypothyroidism ?E03.9 - Hypothyroidism, unspecified (ICD-10) Familial hyperthyroidism ?E05.80 - Other thyrotoxicosis without thyrotoxic crisis or storm (ICD-10) HTN (hypertension) ?I10 - Essential (primary) hypertension (ICD-10) Diabetes ?E11.9 - Type 2 diabetes mellitus without complications (ICD-10) Family History (Updated 02/10/23 @ 04:43 by Jazmine Doyle) Mother Family history of COPD (chronic obstructive pulmonary disease) Family history of diabetes mellitus Family history of hypertension Sister Family history of cancer Family history of diabetes mellitus Father Family history of cancer Social History (Updated 02/10/23 @ 04:44 by Jazmine Doyle) Within the past year, how often did you have a drink containing alcohol: never Within the past year, how often did you have six or more drinks on one occasion: never Score interpretation: A score less than 3 is consistent with normal alcohol consumption. 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 Known occupational exposures/hazards: No Highest level of school completed/degree received: GED or equivalent Do you want help with school or training: No Are you now , , , , never or living with a partner: In a typical week, how many times do you talk on the telephone with family, friends, or neighbors: 3 or more times per week How often do you get together with friends or relatives: 3 or more times per week How often do you attend faith or worship services: never Do you belong to any clubs or organizations such as faith groups unions, fraAgendia or athletic groups, or school groups: no Total score: 1 Score interpretation: A score of less than or equal to 1 indicates the most socially isolated. Little interest or pleasure in doing things: not at all Feeling down, depressed, or hopeless: not at all Feel stressed/tense/nervous/anxious/difficulty sleeping: not at all Due to disability, difficulty making decisions: No Do you think of yourself as: straight/heterosexual Gender Identity: female Exam Constitutional Vital Signs, click to edit/add: Last Vital Signs Temp 97.6 F 03/25/24 22:41 Pulse 72 03/26/24 01:09 Resp 16 03/26/24 01:09 BP 164/102 H 03/26/24 01:09 Pulse Ox 97 03/26/24 01:09 O2 Del Method Room Air 03/26/24 01:09 Common normals: no apparent distress, average body habitus, oriented x3, no limitations, healthy appearing, alert and well nourished Eye Common normals: PERRL, EOMs intact bilaterally and conjunctivae normal Respiratory Common normals: normal respiratory effort, no retractions, no use of accessory muscles and clear to auscultation bilaterally Cardio Common normals: regular rate, regular rhythm, S1 normal heart sound and S2 normal heart sound GI Common normals: Normal to inspection, nondistended, normoactive bowel sounds present Extremity Common normals: normal to inspection and full ROM Neuro Common normals: oriented x3, CN's II-XII intact bilaterally, moves all extremities, no focal motor deficits and no sensory deficits noted Psych Appearance: grossly normal Course Vital Signs Vital signs: Vital Signs Temperature 97.6 F 03/25/24 22:41 Pulse Rate 80 03/25/24 22:41 Respiratory Rate 16 03/25/24 22:41 Blood Pressure 180/90 H 03/25/24 22:41 Pulse Oximetry 97 03/25/24 22:41 Oxygen Delivery Method Room Air 03/25/24 22:41 Temperature 97.6 F 03/25/24 22:41 Pulse Rate 72 03/26/24 01:09 Respiratory Rate 16 03/26/24 01:09 Blood Pressure 164/102 H 03/26/24 01:09 Pulse Oximetry 97 03/26/24 01:09 Oxygen Delivery Method Room Air 03/26/24 01:09 Medical Decision Making MDM Narrative Medical decision making narrative: presents with migraine headache. Headache improved after cocktail in the department and patient discharged home Discharge Plan Discharge Stand Alone Forms: Portal Instructions Chief Complaint: Headache Clinical Impression: Migraine Patient Disposition: Home, Self-Care Prescriptions / Home Meds: No Action amitriptyline 50 mg tablet 50 mg PO .QHS levothyroxine 137 mcg tablet 137 mcg PO .aday lisinopril 20 mg tablet 20 mg PO QDAY Mounjaro 2.5 mg/0.5 mL pen injector 7.5 mg SUBCUT QWEEK amoxicillin-pot clavulanate 875-125 mg tablet 1 tab PO BID Qty: 20 0RF hydrocortisone 1 % cream 1 applic topical BID PRN (Reason: allergic reaction) Qty: 28.4 0RF metformin 750 mg tablet extended release 24 hr 750 mg PO DAILY Print Language: Azeri Instructions: Migraine Headache (ED) Referrals: Emi Gaxiola MD [Primary Care Provider] - 1 week
[2024-03-25] MEDS: DIPHENHYDRAMINE HCL 50 MG/ML VIAL IV (23:31)
[2024-03-25] MEDS: METOCLOPRAMIDE HCL 10 MG/2 ML VIAL IVP (23:31)
[2024-03-25] MEDS: METHYLPREDNISOLONE SOD SUCC PF 125 MG/2 ML VIAL IVP (23:31)
[2024-03-26] MEDS: MAGNESIUM SULFATE IN WATER 2 GM/50 ML PREMIX IV (00:48)
[2024-03-26 01:09] VITALS: BP 164/102; PULSE 72; O2SAT 97
== END 2024-03-26 01:58 | disposition home or self-care (01) ==
PROVIDERS: Emergency Provider Internal Medicine; PCP Family Medicine
DX: G43.909 Migraine, unspecified, not intractable, without status migrainosus (principal); Z87.891 Personal history of nicotine dependence
CPT/HCPCS: 96365; 96375; 99284; J1200; J2765; J2919; J3475

== ENCOUNTER 2024-07-05 14:31 | Emergency (ER) | payer OTHER, SELFPAY ==
[2024-07-05 14:50] VITALS: BP 162/97; PULSE 79; TEMP 36.8; O2SAT 97; BMI 33.3
--- NOTE | 2024-07-05 15:01 | ED.GENADUL1 ---
HPI HPI - General Adult General Chief complaint: Headache Stated complaint: HEADACHE/NAUSEA Time Seen by Provider: 07/05/24 14:34 Source: patient Mode of arrival: walk-in Limitations: no limitations History of Present Illness HPI narrative: 44 year old female presents to the ED for a headache, nausea. Onset was this morning. The pain is to the top and front of her head. She has hx migraines. This is a typical migraine for her. Denies fever, chills, dizziness, vision changes. Denies neck pain/stiffness. She took Aleve at 1200 without relief. Related Data Home Medications ?Medication ?Instructions ?Recorded ?Confirmed levothyroxine 137 mcg tablet 137 mcg PO .aday 02/10/23 07/05/24 tirzepatide 2.5 mg/0.5 mL 15 mg subcut QWEEK 02/10/23 07/05/24 subcutaneous pen injector (Emmanuel) metformin 750 mg tablet,extended 750 mg PO DAILY 08/06/23 07/05/24 release 24 hr lisinopril 20 mg tablet 20 mg PO QDAY 07/05/24 07/05/24 Previous Rx's ?Medication ?Instructions ?Recorded lisinopril 20 mg tablet 20 mg PO DAILY #30 tabs 07/05/24 Allergies Allergy/AdvReac Type Severity Reaction Status Date / Time oxycodone (From Percocet) Allergy Intermediate Verified 09/02/23 21:53 Opioid HPI Opioid Management Most Recent Opioid Data: Last Pain Scale 3 07/05/24 16:34 07/05/24 Review of Systems ROS Constitutional Denies: fever or chills Ears, nose, mouth, and throat Denies: throat pain or neck pain Cardiovascular Denies: chest pain Respiratory Denies: shortness of breath Gastrointestinal Reports: nausea; Denies: abdominal pain or vomiting Musculoskeletal Denies: back pain or neck pain Integumentary/Breast Denies: rash Neurological Reports: headache; Denies: numbness in extremities, weakness in extremities, lack of coordination, dizziness or slurred speech [facility] Medical History (Updated 07/05/24 @ 16:48 by Nahomy Kaur) Hypothyroidism ?E03.9 - Hypothyroidism, unspecified (ICD-10) Familial hyperthyroidism ?E05.80 - Other thyrotoxicosis without thyrotoxic crisis or storm (ICD-10) HTN (hypertension) ?I10 - Essential (primary) hypertension (ICD-10) Diabetes ?E11.9 - Type 2 diabetes mellitus without complications (ICD-10) Family History (Updated 02/10/23 @ 04:43 by Jazmine Doyle) Mother Family history of COPD (chronic obstructive pulmonary disease) Family history of diabetes mellitus Family history of hypertension Sister Family history of cancer Family history of diabetes mellitus Father Family history of cancer Social History (Updated 02/10/23 @ 04:44 by Jazmine Doyle) Within the past year, how often did you have a drink containing alcohol: never Within the past year, how often did you have six or more drinks on one occasion: never Score interpretation: A score less than 3 is consistent with normal alcohol consumption. 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 Known occupational exposures/hazards: No Highest level of school completed/degree received: GED or equivalent Do you want help with school or training: No Are you now , , , , never or living with a partner: In a typical week, how many times do you talk on the telephone with family, friends, or neighbors: 3 or more times per week How often do you get together with friends or relatives: 3 or more times per week How often do you attend methodist or gnosticism services: never Do you belong to any clubs or organizations such as methodist groups unions, fraternal or athletic groups, or school groups: no Total score: 1 Score interpretation: A score of less than or equal to 1 indicates the most socially isolated. Little interest or pleasure in doing things: not at all Feeling down, depressed, or hopeless: not at all Feel stressed/tense/nervous/anxious/difficulty sleeping: not at all Due to disability, difficulty making decisions: No Do you think of yourself as: straight/heterosexual Gender Identity: female Exam Constitutional Vital Signs, click to edit/add: Last Vital Signs Temp 98.2 F 07/05/24 14:50 Pulse 74 07/05/24 16:13 Resp 16 07/05/24 16:13 BP 150/78 H 07/05/24 16:13 Pulse Ox 97 07/05/24 16:13 O2 Del Method Room Air 07/05/24 16:13 Common normals: no apparent distress and oriented x3 General appearance: cooperative HENMT Common normals: normocephalic Face and sinus: normal facial exam Nose: external nose normal External ear: external ears normal Mouth: oral and palatal mucosa normal, lip normal and tongue normal Eye Common normals: PERRL, EOMs intact bilaterally, conjunctivae normal and no scleral icterus Neck & C-Spine Common normals: supple and no meningeal signs Chest Chest: symmetrical chest wall rise Respiratory Effort & inspection: able to speak in complete sentences and symmetric chest movement Cardio Common normals: regular rate Neuro Common normals: oriented x3, CN's II-XII intact bilaterally, moves all extremities and no focal motor deficits Sensorium/orientation: awake and alert Meningeal signs: no meningeal signs Speech: speech normal Gait (neuro): normal gait Course Vital Signs Vital signs: Vital Signs Temperature 98.2 F 07/05/24 14:50 Pulse Rate 79 07/05/24 14:50 Respiratory Rate 18 07/05/24 14:50 Blood Pressure 162/97 H 07/05/24 14:50 Pulse Oximetry 97 07/05/24 14:50 Oxygen Delivery Method Room Air 07/05/24 14:50 Temperature 98.2 F 07/05/24 14:50 Pulse Rate 74 07/05/24 16:13 Respiratory Rate 16 07/05/24 16:13 Blood Pressure 150/78 H 07/05/24 16:13 Pulse Oximetry 97 07/05/24 16:13 Oxygen Delivery Method Room Air 07/05/24 16:13 Medical Decision Making MDM Narrative Medical decision making narrative: She was given IV Reglan, Benadryl, Toradol, Solu-medrol, and Magnesium with improvement in her symptoms. She has also been out of her Linisopril for some time now due to insurance issues. States she has insurance at this time. A prescription was provided for Lisinopril. Follow up with pcp for a recheck, further evaluation and treatment. Medical Records Medical records reviewed: Yes I reviewed the patient's medical records Discharge Plan Discharge Chief Complaint: Headache Clinical Impression: Headache, Encounter for medication refill Patient Disposition: Home, Self-Care Time of Disposition Decision: 16:47 Condition: Good Mode of Transportation: Private Vehicle Prescriptions / Home Meds: New lisinopril 20 mg tablet 20 mg PO DAILY Qty: 30 0RF No Action levothyroxine 137 mcg tablet 137 mcg PO .aday Mounjaro 2.5 mg/0.5 mL pen injector 15 mg SUBCUT QWEEK metformin 750 mg tablet extended release 24 hr 750 mg PO DAILY lisinopril 20 mg tablet 20 mg PO QDAY Patient Comments: Pt has not been taking. She stopped it herself. Print Language: Korean Instructions: Acute Headache (ED) Additional Instructions: Return to the ED for new or worsening symptoms. Referrals: Emi Gaxiola MD [Primary Care Provider] - 1 week
[2024-07-05] MEDS: MAGNESIUM SULFATE/D5W 1 GM/100 ML PREMIX IV (15:11)
[2024-07-05] MEDS: DIPHENHYDRAMINE HCL 50 MG/ML VIAL 25 MG IV (15:12)
[2024-07-05] MEDS: METOCLOPRAMIDE HCL 10 MG/2 ML VIAL IVP (15:12)
[2024-07-05] MEDS: METHYLPREDNISOLONE SOD SUCC PF 125 MG/2 ML VIAL IVP (15:12)
--- OUTSIDE RECORDS SUMMARY | 2024-07-05 15:12 | XMS_ITS | CCD ---
Author Organization [facility] Care Team Providers Care [facility] Attendant Name Role Phone UNKNOWN, PROVIDER Admitting Unavailable LONDON RAMIREZ Attending Unavailable UNKNOWN, PHYSICIAN Referring Unavailable UNKNOWN, PHYSICIAN Primary Care Unavailable KELLY SAENZ CNP Primary Care Physician [phone] Beverly Childers Unavailable Unavailable AICHHOLZ, ULTRASOUND SPECIALIST [place] Primary Care Unavailable BOB ., CECI Admitting Unavailable BOB .CECI Attending Unavailable BOB ., CECI Consulting Unavailable AICHHOLZ, ULTRASOUND SPECIALIST [place] Primary Care Unavailable TRACEY TERRY Admitting Unavailable TRACEY TERRY Attending Unavailable TRACEY TERRY Consulting Unavailable AICHHOLZ, ULTRASOUND SPECIALIST [place] Admitting Unavailable AICHHOLZ, ULTRASOUND SPECIALIST [place] Attending Unavailable AICHHOLZ, ULTRASOUND SPECIALIST [place] Primary Care Unavailable AICHHOLZ, ULTRASOUND SPECIALIST [place] Admitting Unavailable AICHHOLZ, ULTRASOUND SPECIALIST [place] Attending Unavailable AICHHOLZ, ULTRASOUND SPECIALIST [place] Primary Care Unavailable AICHHOLZ, ULTRASOUND SPECIALIST [place] Consulting Unavailable DR MANJU CHAMPAGNE Consulting Unavailable AICHHOLZ, ULTRASOUND SPECIALIST [place] Admitting Unavailable AICHHOLZ, ULTRASOUND SPECIALIST [place] Attending Unavailable AICHHOLZ, ULTRASOUND SPECIALIST [place] Primary Care Unavailable AICHHOLZ, ULTRASOUND SPECIALIST [place] Consulting Unavailable AICHHOLZ, ULTRASOUND SPECIALIST [place] Admitting Unavailable AICHHOLZ, ULTRASOUND SPECIALIST [place] Attending Unavailable AICHHOLZ, ULTRASOUND SPECIALIST [place] Primary Care Unavailable AICHHOLZ, ULTRASOUND SPECIALIST [place] Consulting Unavailable AICHHOLZ, ULTRASOUND SPECIALIST [place] Admitting Unavailable AICHHOLZ, ULTRASOUND SPECIALIST [place] Attending Unavailable AICHHOLZ, ULTRASOUND SPECIALIST [place] Primary Care Unavailable AICHHOLZ, ULTRASOUND SPECIALIST [place] Consulting Unavailable AICHHOLZ, [place] J Primary Care Physician [phone] Amanda Villafana Unavailable [place] MURPHY Admitting Unavailable [place] MURPHY Attending Unavailable NILL, Mateo R Attending Unavailable AMANDA VILLAFANA Referring Unavailable Allergies Allergy Classification Reported Allergen(s) Allergy Type Date of Onset Reaction(s) Facility (2 sources) Acetaminophen / oxyCODONE Drug Allergy 9 [facility] Repository (14 sources) Acetaminophen / oxyCODONE; Translations: [acetaminophen-ox ycodone] Drug Allergy Eruption of skin (disorder), [facility] (1 source) Acetaminophen Drug Allergy 1 [facility] Repository (2 sources) Acetaminophen Drug Allergy 4 [facility] (2 sources) oxyCODONE Drug Allergy 4 [facility] Medications Current Medications Medication Drug Class(es) [...] q4hr for headache, 15 tab(s), Refill(s) 0, [facility]/pharmacy #[id number], 60, cm, 04/04/21 17:48:00 EDT, Height/Length Dosing, 94.9, kg, 04/04/21 17:48:00 EDT, Weight Dosing Start Date: 04/04/21 Status: Ordered [id number] 200 actuat albuterol 0.09 mg/actuat metered dose inhaler (2 sources) beta2-Adrenergic Agonist Start: 03-19-2024 take 1 puff(s) [...] bedtime), # 30 tab(s), Refills(s) 0, Pharmacy: [facility]/pharmacy #[id number], 60, cm, 02/04/21 9:34:00 EDT, Height/Length Dosing, 99.3, kg, 02/04/21 6:14:00 EDT, Weight Dosing Start Date: 02/06/21 Status: Ordered aspirin 81 mg delayed release oral tablet (4 sources) Platelet Aggregation Inhibitor, Nonsteroidal Anti-inflammatory Drug Start: 02-06-2021 take 1 tablet by mouth once daily aspirin 81 mg Oral EC Tab 81 mg = 1 tab(s), Oral, Daily, # 90 tab(s), Refills(s) 0, Pharmacy: [facility]/pharmacy #[id number], 60, cm, 02/04/21 9:34:00 EDT, Height/Length Dosing, 99.3, kg, 02/04/21 6:14:00 EDT, Weight Dosing Start Date: 02/06/21 Status: Ordered Start: 02-06-2021 take 1 tablet by torrey th once daily aspirin 81 mg Oral EC Tab 81 mg = 1 tab(s), Oral, Daily, # 90 tab(s), Refills(s) 0, Pharmacy: [facility]/pharmacy #[id number], 60, cm, 02/04/21 9:34:00 EDT, Height/Length Dosing, 99.3, kg, 02/04/21 6:14:00 EDT, Weight Dosing Start Date: 02/06/21 Status: Ordered atorvastatin 40 mg oral tablet (4 sources) HMG-CoA Reductase Inhibitor Start: 02-06-2021 take 1 tablet by mouth once daily Lipitor 40 mg Tab 40 mg = 1 tab(s), Oral, Daily, # 90 tab(s), Refills(s) 0, Pharmacy: [facility]/pharmacy #[id number], 60, cm, 02/04/21 9:34:00 EDT, Height/Length Dosing, 99.3, kg, 02/04/21 6:14:00 EDT, Weight Dosing Start Date: 02/06/21 Status: Ordered levothyroxine sodium 0.125 mg oral tablet (13 sources) l-Thyroxine Start: 03-14-2024 Levothyroxine Active 0 [...] Daily, # 90 tab(s), Refills(s) 0, Pharmacy: [facility]/pharmacy #[id number], 160, cm, 04/06/19 13:58:00 EDT, Height/Length Measured, 91.2, kg, 04/06/19 13:58:00 EDT, Weight Measured Start Date: 11/14/19 Status: Ordered take 1 capsule by mo ut once daily in the morning Levothyroxine Sodium 125 MCG 1 capsule in the morning on an empty stomach Orally Once a day Active lisinopril 20 mg oral tablet (13 sources) Angiotensin Converting Enzyme Inhibitor Start: 11-30-2023 [...] hydrochloride 750 mg extended release oral tablet (19 sources) Biguanide Start: 03-14-2024 take 1 tablet by mouth once daily Metformin Active 0 .ROUTE .COMPLEX March 14, 2024 2:17pm TAKE 1 TABLET BY MOUTH EVERY DAY Start: 11-30-2023 End: 03-14-2024 take 1 tablet by mouth once daily Metformin Discontinued 750 MG PO Daily March 12, 2024 12:37March 14, 2024 2:17pm FreeTextSi tablet with evening [...] mg/0.5ml solution pen-injector (2 sources) Mounjaro 7.5 MG/0.5ML as directed Subcutaneous weekly for 90 days Active Multi Vitamin+ (4 sources) Start: 02-05-20 take 1 tablet by mouth once daily Multi Vitamin+ 1 tab, Oral, Daily, Refill(s) 0 Start Date: 02/04/21 Status: Ordered mupirocin 0.02 mg/mg topical ointment (1 source) RNA Synthetase Inhibitor Antibacterial Start: 06-14-20 Mupirocin Active 1 APPLIC TOPICAL Twice daily June 14, 2024 12:00am naproxen 500 mg oral tablet (4 sources) Nonsteroidal Anti-inflammatory Drug Start: 02-02-20 take 1 tablet by mouth twice daily Naprosyn 500 mg Tab 500 mg = 1 tab(s), Oral, BID, # 20 tab(s), Refills(s) 0 Start Date: 02/01/21 Status: Ordered sulfamethoxazole 800 mg / trimethoprim 160 mg oral tablet (4 sources) Dihydrofolate Reductase Inhibitor Antibacterial, Sulfonamide Antimicrobial Start: 06-14-20 take 1 tablet by mouth twice daily Sulfamethoxazole-Tr imethoprim Active 1 TAB PO Twice daily June 14, 2024 12:00am take 1 tablet by mouth every twe lve hours Bactrim DS 800-160 MG 1 tablet Orally Twice a day for 5 days Active Tirzepatide (6 sources) Start: 03-12-2024 Tirzepatide (Stu castro) 7.5 mg/0.5 mL pen injector Active 0 .ROUTE .COMPLEX March 12, 2024 12:37pm INJECT SUBCUTANEOUSLY DIRECTED [...] mL pen injector Discontinued 0 .ROUTE .COMPLEX November 21, 2023 11:32am March 12, 2024 [...] wheezing/shortness of breath, 1 EA, Refill(s) 0, [facility]/pharmacy #[id number] Start Date: 02/26/19 Status: Ordered Tirzepatide (2 sources) Start: 10-11-2023 End: 11-21-2023 Tirzepatide (Mounjaro) 10 mg/0.5 mL pen injector Discontinued 10 MG SUBCUT every week 10 26October 11, 2023 1:00am November 21, 2023 11:32am Problems Active Problems Problem Classification Problem Date Documented Da te Episodic/Chronic Asthma (4 sources) Asthma 11-09-2013 Chronic Deficiency and other anemia (10 sources) Iron deficiency anemia; Translations: [Other iron deficiency anemias] 03-19-2024 Episodic Deficiency and other anemia (2 sources) Other iron deficiency anemias Episodic Deficiency and other anemia (2 sources) Iron deficiency anemia, unspecified; Translations: [Iron deficiency anemia, unspecified] 03-19-2024 Episodic Diabetes mellitus with complications (20 sources) Type 2 diabetes mellitus; Translations: [Type [...] (current) use of oral hypoglycemic drugs; Translations: [DETENTION USE ORAL HYPOGLYCEMIC DX] Onset: 12-14-2022 Episodic Other aftercare (1 source) 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] Test Name Value Interpretation Reference Range Facility Basophils Auto (Bld) [#/Vol] on 03-19-2024 Basophils (Bld) [#/Vol] 0.0 10 3/uL 0.0-0.1 [facility] Basophils/100 WBC Auto (Bld) on 03-19-2024 Basophils/100 WBC (Bld) 0.6 % 0.2-2.0 [facility] Eosinophils/100 WBC Auto (Bl d)on 03-19-2024 Eosinophils/100 WBC (Bld) 7.0 % 0.9-7.0 [facility] Erythrocyte distribution wid th Auto (RBC) [Ratio]on 03-19-2024 Erythrocyte distribution width (RBC) [Ratio] 13.6 % 11.0-15.0 [facility] Glucose mean value [Mass/vol ume] in Blood Estimated from glycated hemoglobinon 03-19-2024 Average glucose Estimated from glycated hemoglobin (Bld) [Mass/Vol] 123 mg/dL [facility] Hematocrit Auto (Bld) [Volum e fraction]on 03-19-2024 Hematocrit (Bld) [Volume fraction] 40.6 % 36.0-48.0 [facility] Hemoglobin [Mass/volume] in Bloodon 03-19-2024 Hemoglobin (Bld) [Mass/Vol] 13.1 g/dL 12.0-16.0 [facility] Laboratory - Chemistry and C hemistry - challengeon 03-19-2024 Ferritin [Mass/Vol] 14.0 ng/mL 8.0-252.0 [facility] Laboratory - Hematology and Cell countson 03-19-2024 HbA1c (Bld) [Mass fraction] 5.9 % 4.5-6.2 [facility] Comment on above: ADA RECOMMENDED LIMI T 4.0 - 6.0ADA THERAPEUTIC TARGET < 7.0ACTION SUGGESTED> 7.0 Immature granulocytes/100 WBC (Bld) 0.3 % 0.0-0.5 [facility] Leukocytes [#/volume] correc janel for nucleated erythrocytes in Blood by Automated counon 03-19-2024 WBC corrected for nucl RBC Auto (Bld) [#/Vol] 6.4 10 3/uL 4.0-11.0 [facility] Lymphocytes Auto (Bld) [#/Vo l]on 03-19-2024 Lymphocytes (Bld) [#/Vol] 1.3 10 3/uL 1.2-3.8 [facility] Lymphocytes/100 WBC Auto (Bl d)on 03-19-2024 Lymphocytes/100 WBC (Bld) 20.8 % 20.5-60.0 [facility] MCH Auto (RBC) [Entitic mass ]on 03-19-2024 MCH (RBC) [Entitic mass] 28.2 pg 26.7-34.0 [facility] MCHC Auto (RBC) [Mass/Vol]on 03-19-2024 MCHC (RBC) [Mass/Vol] 32.3 g/dL 29.9-35.2 [facility] MCV Auto (RBC) [Entitic vol] on 03-19-2024 MCV (RBC) [Entitic vol] 87.5 fL 81.0-99.0 [facility] Monocytes Auto (Bld) [#/Vol] on 03-19-2024 Monocytes (Bld) [#/Vol] 0.5 10 3/uL 0.3-0.8 [facility] Monocytes/100 WBC Auto (Bld) on 03-19-2024 Monocytes/100 WBC (Bld) 7.3 % 1.7-12.0 [facility] Neutrophils Auto (Bld) [#/Vo l]on 03-19-2024 Neutrophils (Bld) [#/Vol] 4.1 10 3/uL 1.4-6.5 [facility] Neutrophils/100 WBC Auto (Bl d)on 03-19-2024 Neutrophils/100 WBC (Bld) 64.0 % 43.0-75.0 [facility] No Panel Informationon 03-19 Eosinophils # (Auto) 0.5 10 3/uL 0.0-0.7 [facility] Immature Granulocyte # (Auto) 0.02 10 3/uL 0.00-0.03 [facility] Platelet mean volume Auto (B ld) [Entitic vol]on 03-19-2024 Platelet mean volume (Bld) [Entitic vol] 10.1 fL 9.5-13.5 [facility] Platelets Auto (Bld) [#/Vol] on 03-19-2024 Platelets (Bld) [#/Vol] 235 10 3/uL 150-450 [facility] RBC Auto (Bld) [#/Vol]on RBC (Bld) [#/Vol] 4.64 10 6/uL 4.20-5.40 [facility] Physician Referralon 023 Physician Referral [id number] #1.00TIFF Normal [facility] T3 Freeon 03-09-2023 Free T3 [Mass/Vol] 2.7 pg/mL Invalid Interpretation Code 2.0-4.4 [facility] Comment on above: Result Comment: Perf ormed at: [facility] [address] [place], [place] [id number] PhD Toya Avendaño Performed By: #### 7 [id number], [id number], 0503992, 0320157, [id number], [id number] #### [facility] [address] [place] [id number] CHEMISTRYOrdered By: SYSTEM SYSTEM on 03-08-2023 Albumin [...] 20 mg/mg Normal 10 - 20 [facility] Remisol CHEMISTRYOrdered By: Mateo Thomason on 03-08-2023 HbA1c (Bld) [Mass fraction] 5.8 % Normal <=5.9% [facility] ChemAutoSS CMPon 03-08-2023 Albumin [Mass/Vol] 4.3 g/dL Normal 3.3-5.0 [facility] Comment on above: Performed By: #### 7 [id number], 4449081, 4164618, 5890828, 11961971, 0698003 #### [facility] [address] [place] [address] Albumin/Globulin (S) [Mass conc ratio] 1.1 Normal 1.1-2.2 [facility] Comment on above: Performed By: #### 7 [id number], 3753505, 3636600, 8000863, 26468704, 0306631 #### [facility] [address] [place] [address] ALP [Catalytic activity/Vol] 55 Int._Unit/L Normal 21-98 [facility] Comment on above: Performed By: #### 7 [id number], 6427656, 9240134, 7542283, 64345335, 0636841 #### [facility] [address] [place] [address] ALT No additional P-5'-P [Catalytic activity/Vol] 17 Int._Unit/L Normal 6-46 [facility] Comment on above: Performed By: #### 7 [id number], 3495942, 0239571, 4452152, 67712343, 4431184 #### [facility] [address] [place] [address] Anion gap [Moles/Vol] 9 mmol/L Normal 6-16 [facility] Comment on above: Performed By: #### 7 [id number], 2328857, 0948504, 3095574, 94390464, 6274463 #### [facility] [address] [place] [address] AST [Catalytic activity/Vol] 19 Int._Unit/L Normal 5-43 [facility] Comment on above: Performed By: #### 7 [id number], 8640147, 8269036, 4527476, 53815233, 4271756 #### [facility] [address] [place] [address] Bilirubin [Mass/Vol] 0.6 mg/dL Normal 0.0-1.1 [facility] Comment on above: Performed By: #### 7 [id number], 8346092, 2788991, 8543583, 78736669, 1064259 #### [facility] [address] [place] [address] Calcium [Mass/Vol] 9.3 mg/dL Normal 8.9-11.1 [facility] Comment on above: Performed By: #### 7 [id number], 1720182, 2757010, 5459937, 67081668, 2905593 #### [facility] [address] [place] [address] Chloride [Moles/Vol] 108 mmol/L Normal 101-111 [facility] Comment on above: Performed By: #### 7 [id number], 9177169, 2927009, 2789548, 80303769, 1817640 #### [facility] [address] [place] [address] CO2 [Moles/Vol] 26 mmol/L Normal 21-31 [facility] Comment on above: Performed By: #### 7 [id number], 4751714, 9217205, 2537293, 47039417, 9739412 #### [facility] [address] [place] [address] Creatinine [Mass/Vol] 0.7 mg/dL Normal 0.5-1.3 [facility] Comment on above: Performed By: #### 7 [id number], 4653742, 3659506, 3851500, 17697072, 7854437 #### [facility] [address] [place] [address] Globulin (S) [Mass/Vol] 3.8 g/dL Normal 1.4-4.0 [facility] Comment on above: Performed By: #### 7 [id number], 1252666, 4549044, 6473720, 00230718, 9085352 #### [facility] [address] [place] [address] Glucose [Mass/Vol] 125 mg/dL Normal 55-199 [facility] Comment on above: Result Comment: If t his glucose result represents a fasting glucose, interpretation should refer to the following reference range: 55-99 mg/dL Performed By: #### 7 [id number], 5964487, 0915941, 4210229, 56928170, 0662655 #### [facility] [address] [place] [address] Potassium [Moles/Vol] 4.1 mmol/L Normal 3.5-5.3 [facility] Comment on above: Performed By: #### 7 [id number], 6571754, 8008844, 2391318, 38079600, 3147090 #### [facility] [address] [place] [address] Protein [Mass/Vol] 8.1 g/dL High 6.0-7.8 [facility] Comment on above: Performed By: #### 7 [id number], 0138316, 0157484, 1637190, 51110335, 4196311 #### [facility] [address] [place] [address] Sodium [Moles/Vol] 139 mmol/L Normal 135-145 [facility] Comment on above: Performed By: #### 7 [id number], 1072054, 5050509, 2581219, 45516122, 6665458 #### [facility] [address] [place] [address] Urea nitrogen [Mass/Vol] 14 mg/dL Normal 5-21 [facility] Comment on above: Performed By: #### 7 [id number], 6889514, 2812793, 1373162, 87993034, 0442170 #### [facility] [address] [place] [address] Urea nitrogen/Creatinine [Mass ratio] 20 No Units Normal 10-20 [facility] Comment on above: Performed By: #### 7 [id number], 3807560, 2693842, 1844145, 26340791, 7628821 #### [facility] [address] [place] [address] Consent for Treatmenton 02-26 Consent for Treatment [id number] #1.00CD:127 Normal [facility] Free T4on 03-08-2023 Free T4 [Mass/Vol] 1.24 ng/dL Normal 0.58-1.64 [facility] Comment on above: Performed By: #### 7 [id number], 0623420, 7555233, 3434152, 32023807, 8173058 #### [facility] [address] [place] [address] [id number] 03-08-2023 HbA1c (Bld) [Mass fraction] 5.8 % Normal <=5.9 [facility] Comment on above: Performed By: #### 7 [id number], 6371768, 2197554, 5098290, 55672355, 9717103 #### [facility] [address] [place] [address] Physician Orderon 03-08-2023 Physician Order [id number] #1.00CD:127 Normal [facility] TSHon 03-08-2023 TSH Qn 0.11 m[IU]/L Low 0.34-5.60 [facility] Comment on above: Performed By: #### 7 [id number], 6345089, 4449612, 5864665, 29448248, 2096448 #### [facility] [address] [place] [address] eGFRon 03-08-2023 GFR/1.73 sq M.predicted among non-blacks MDRD (S/P/Bld) [Vol rate/Area] 109 mL/min/1.73 m2 Normal >=59 [facility] Comment on above: Order Comment: Order added by Discern Expert. Result Comment: [employer] emre kidney disease could be indicated at eGFR's of less than 60 mL/min/1.73m2. Kidney failure is indicated at less than 15 mL/min/1.73m2. Performed By: #### 7 [id number], 1140628, 0517629, 7897505, 47161948, 8981657 #### [facility] [address] [place] [address] CULTURE URINEon 12-14-2022 CULTURE URINE Isolate 1 [...] F Trimethoprim/Sulfame thoxazole <=20 S F Normal [facility] Comment on above: Performed By: #### E VERONICA HUGHES #### [facility] [address] [place] [address] Dr. Dandy Dobson Physician Orderon 12-13-2022 Physician Order [id number] #1.00CD:127 Normal [facility] ER URINE PROFILEon 3 Bilirubin Ql (U) Negative Normal NEGATIVE [facility] Comment on above: Performed By: #### Jony HUGHES UMICRO #### [facility] [address] [place] [address] Dr. Dandy Dobson Clarity (U) SL CLOUDY Abnormal CLEAR [facility] Comment on above: Performed By: #### HELEN SIERRARO #### [facility] [address] [place] [address] Dr. Dandy Dobson Color (U) LT. YELLOW Normal YELLOW [facility] Comment on above: Performed By: #### HELEN SIERRARO #### [facility] [address] [place] [address] Dr. Dandy LAO A micrscopic examination will be performed if indicated. Normal [facility] Comment on above: Performed By: #### HELEN SIERRARO #### [facility] [address] [place] [address] Dr. Dandy Dobson Glucose Ql (U) Negative Normal NEGATIVE [facility] Comment on above: Performed By: #### HELEN SIERRARO #### [facility] [address] [place] [address] Dr. Dandy Dobson Hemoglobin Ql (U) SMALL Abnormal NEGATIVE [facility] Comment on above: Performed By: #### Jony HUGHES UMICRO #### [facility] [address] [place] [address] Dr. Dandy Dobson Ketones Ql (U) Negative Normal NEGATIVE [facility] Comment on above: Performed By: #### Jony HUGHES UMICRO #### [facility] [address] [place] [address] Dr. Dandy Dobson LEUKOCYTES SMALL Abnormal NEGATIVE [facility] Comment on above: Performed By: #### E MELINDAR, UMICRO #### [facility] [address] [place] [address] Dr. Dandy Dobson Nitrite Ql (U) Negative Normal NEGATIVE [facility] Comment on above: Performed By: #### E MELINDAR, UMICRO #### [facility] [address] [place] [address] Dr. Dandy Dobson pH (U) 6.0 [pH] Normal 5-9 [facility] Comment on above: Performed By: #### E SAUL, UMICRO #### [facility] [address] [place] [address] Dr. Dandy Dobson Protein (U) [Mass/Vol] 30 mg/dL Abnormal NEGAT JACKELYN/ TRACE [facility] Comment on above: Performed By: #### E SAUL, UMICRO #### [facility] [address] [place] [address] Dr. Dandy Dobson SPEC GRAVITY >=1.030 Abnormal 1.005-<=1.02 5 [facility] Comment on above: Performed By: #### Jony HUGHES UMICRO #### [facility] [address] [place] [address] Dr. Dandy Dobson UR MICRO IND INDICATED Normal [facility] Comment on above: Performed By: #### E SAUL, UMICRO #### [facility] [address] [place] [address] Dr. Dandy Dobson Urobilinogen Qn (U) 1.0 {Sarahi'U}/dL Normal 0.2 - 1. 0 [facility] Comment on above: Performed By: #### E SAUL, UMICRO #### [facility] [address] [place] [address] Dr. Dandy Dobson URon 12-12-2022 , QUAL Negative Normal NEGATIVE [facility] Comment on above: Performed By: #### P REGU #### [facility] [address] [place] [address] Dr. Dandy Dobson URINE MICROSCOPIC ONLYon BACTERIA SMALL Abnormal NONE SEEN [facility] Comment on above: Performed By: #### Jony HUGHES, UMICRO #### [facility] [address] [place] [address] Dr. Dandy Dobson Bacteria identified Cx Nom (U) INDICATED Normal [facility] Comment on above: Performed By: #### E SAUL, UMICRO #### [facility] [address] [place] [address] Dr. Dandy Dobson CAST NONE SEEN Normal NONE SEEN [facility] Comment on above: Performed By: #### E SAUL, UMICRO #### [facility] [address] [place] [address] Dr. Dandy Dobson Crystals LM Nom (Urine sed) NONE SEEN Normal NONE SEEN [facility] Comment on above: Performed By: #### E SAUL UMICRO #### [facility] [address] [place] [address] Dr. Dandy Dobson Epithelial cells LM Ql (Urine sed) MODERATE Abnormal NONE SEEN /RARE [facility] Comment on above: Performed By: #### Jony HUGHES UMICRO #### [facility] [address] [place] [address] Dr. Dandy Dobson MUCOUS NONE SEEN Normal NONE SEEN [facility] Comment on above: Performed By: #### Jony HUGHES UMICRO #### [facility] [address] [place] [address] Dr. Dandy Dobson RBC 10-20 Abnormal 0-2 [facility] Comment on above: Performed By: #### Jony HUGHES UMICRO #### [facility] [address] [place] [address] Dr. Dandy Dobson WBC (U) [#/Vol] /uL Abnormal NONE SEEN [facility] [place] Comment on above: Performed By: #### Jony HUGHES UMICRO #### [facility] [address] [place] [address] Dr. Dandy Dobson FREE T4on 11-29-2022 Free T4 [Mass/Vol] 1.10 ng/dL Normal 0.76-1.46 [facility] Comment on above: Performed By: #### VERONICA SIERRA #### [facility] [address] [place] [address] Dr. Dandy Dobson TSHon 11-29-2022 TSH 0.204 uIU/mL Critically low 0.358-3.740 [facility] Comment on above: Performed By: #### VERONICA SIERRA #### [facility] [address] [place] [address] Dr. Dandy Dobson CBC AUTO DIFFon 09-14-2022 BASO # 0.0 103/ul Normal 0.0-0.1 [facility] Comment on above: Performed By: #### C BC #### [facility] [address] [place] [address] Dr. Dandy Dobson Basophils/100 WBC (Bld) 0.4 % Normal 0.2-2.0 [facility] Comment on above: Performed By: #### C BC #### [facility] [address] [place] [address] Dr. Dandy Dobson EO # 0.1 103/ul Normal 0.0-0.7 [facility] Comment on above: Performed By: #### C BC #### [facility] [address] [place] [address] Dr. Dandy Dobson Eosinophils/100 WBC (Bld) 2.1 % Normal 0.9-7.0 [facility] Comment on above: Performed By: #### C BC #### [facility] [address] [place] [address] Dr. Dandy Dobson Erythrocyte distribution width (RBC) [Ratio] 13.7 % Normal 11.0-15.0 [facility] Comment on above: Performed By: #### C BC #### [facility] [address] [place] [address] Dr. Dandy Dobson Hematocrit (Bld) [Volume fraction] 38.7 % Normal 36.0-48.0 [facility] Comment on above: Performed By: #### C BC #### [facility] [address] [place] [address] Dr. Dandy Dobson Hemoglobin (Bld) [Mass/Vol] 12.6 g/dL Normal 12.0-16.0 [facility] Comment on above: Performed By: #### C BC #### [facility] [address] [place] [address] Dr. Dandy Dobson IG # 0.01 10e3/ul Normal 0.00-0.03 [facility] Comment on above: Performed By: #### C BC #### [facility] [address] [place] [address] Dr. Dandy Dobson IG % 0.2 % Normal 0.0-0.5 [facility] Comment on above: Performed By: #### C BC #### [facility] [address] [place] [address] Dr. Dandy Dobson LYMPH # 1.6 103/ul Normal 1.2-3.8 [facility] Comment on above: Performed By: #### C BC #### [facility] [address] [place] [address] Dr. Dandy Dobson Lymphocytes/100 WBC (Bld) 27.5 % Normal 20.5-60.0 [facility] Comment on above: Performed By: #### C BC #### [facility] [address] [place] [address] Dr. Dandy Dobson MANUAL DIFF REQ NO Normal [facility] Comment on above: Performed By: #### C BC #### [facility] [address] [place] [address] Dr. Dandy Dobson MCH (RBC) [Entitic mass] 27.1 pg Normal 26.7-34.0 [facility] Comment on above: Performed By: #### C BC #### [facility] [address] [place] [address] Dr. Dandy Dobson MCHC (RBC) [Mass/Vol] 32.6 g/dL Normal 29.9-35.2 [facility] Comment on above: Performed By: #### C BC #### [facility] [address] [place] [address] Dr. Dandy Dobson MCV (RBC) [Entitic vol] 83.2 fL Normal 81.0-99.0 [facility] Comment on above: Performed By: #### C BC #### [facility] [address] [place] [address] Dr. Dandy Dobson MONO # 0.6 103/ul Normal 0.3-0.8 [facility] Comment on above: Performed By: #### C BC #### [facility] [address] [place] [address] Dr. Dandy Dobson Monocytes/100 WBC (Bld) 9.9 % Normal 1.7-12.0 [facility] Comment on above: Performed By: #### C BC #### [facility] [address] [place] [address] Dr. Dandy Dobson NEUT # 3.4 103/ul Normal 1.4-6.5 [facility] Comment on above: Performed By: #### C BC #### [facility] [address] [place] [address] Dr. Dandy Dobson Neutrophils/100 WBC (Bld) 59.9 % Normal 43.0-75.0 [facility] Comment on above: Performed By: #### C BC #### [facility] [address] [place] [address] Dr. Dandy Dobson Platelet mean volume (Bld) [Entitic vol] 9.7 fL Normal 9.5-13.5 [facility] Comment on above: Performed By: #### C BC #### [facility] [address] [place] [address] Dr. Dandy Dobson PLT 230 103/ul Normal 150-450 [facility] Comment on above: Performed By: #### C BC #### [facility] [address] [place] [address] Dr. Dandy Dobson RBC 4.65 106/ul Normal 4.20-5.40 [facility] Comment on above: Performed By: #### C BC #### [facility] [address] [place] [address] Dr. Dandy Dobson WBC 5.6 103/ul Normal 4.0-11.0 [facility] Comment on above: Performed By: #### C BC #### [facility] [address] [address] [address] Dandy Dobson FERRITINon 09-14-2022 Ferritin [Mass/Vol] 52.0 ng/mL Normal 6.2-137.0 [facility] Comment on above: Performed By: #### V ITB12, IRON, FT4, FERR #### [facility] [address] [place] [address] Dr. Dandy Dobson FREE T4on 09-14-2022 Free T4 [Mass/Vol] 1.69 ng/dL Critically high 0.76-1.46 [facility] Comment on above: Performed By: #### V ITB12, IRON, FT4, FERR #### [facility] [address] [place] [address] Dr. Dandy Dobson GLYCOHEMOGLOBIN A1Con 2022 ADA RECOMMENDATION SEE BELOW Normal [facility] Comment on above: Result Comment: ADA RECOMMENDED LIMIT 4.0 - 6.0 ADA THERAPEUTIC TARGET < 7.0 ACTION SUGGESTED > 7.0 Performed By: #### HELEN SIERRARO #### [facility] [address] [place] [address] Dr. Dandy Dobson Glucose [Mass/Vol] 134 mg/dL Normal [facility] Comment on above: Performed By: #### Jony HUGHES UMINGRIDRO #### [facility] [address] [place] [address] Dr. Dandy Dobson HbA1c (Bld) [Mass fraction] 6.3 % Critically high 4.5-6.2 [facility] Comment on above: Performed By: #### Jony HUGHES UMINGRIDRO #### [facility] [address] [place] [address] Dr. Dandy Dobson IRONon 09-14-2022 Iron [Mass/Vol] 42.0 ug/dL Critically low 50.0-170.0 [facility] Comment on above: Performed By: #### V ITB12, IRON, FT4, FERR #### [facility] [address] [place] [address] Dr. Dandy Dobson PROF 14(COMP METB)on 01-17-2 023 Albumin [Mass/Vol] 3.8 g/dL Normal 3.4-5.0 [facility] Comment on above: Performed By: #### VERONICA SIERRA #### [facility] [address] [place] [address] Dr. Dandy Dobson Albumin/Globulin [Mass ratio] 1.0 {ratio} Normal [facility] Comment on above: Performed By: #### VERONICA SIERRA #### [facility] [address] [place] [address] Dr. Dandy Dobson ALP [Catalytic activity/Vol] 66 U/L Normal 46-116 [facility] Comment on above: Performed By: #### VERONICA SIERRA #### [facility] [address] [place] [address] Dr. Dandy Dobson ALT [Catalytic activity/Vol] 20 U/L Normal 14-59 [facility] Comment on above: Performed By: #### VERONICA SIERRA #### [facility] [address] [place] [address] Dr. Dandy Dobson Anion gap [Moles/Vol] 11.3 mmol/L Normal [facility] Comment on above: Performed By: #### VERONICA SIERRA #### [facility] [address] [place] [address] Dr. Dandy Dobson AST [Catalytic activity/Vol] 16 U/L Normal 15-37 [facility] Comment on above: Performed By: #### VERONICA SIERRA #### [facility] [address] [place] [address] Dr. Dandy Dobson Bilirubin [Mass/Vol] 0.3 mg/dL Normal 0.2-1.0 [facility] Comment on above: Performed By: #### VERONICA SIERRA #### [facility] [address] [place] [address] Dr. Dandy Dobson Calcium [Mass/Vol] 9.0 mg/dL Normal 8.5-10.1 [facility] Comment on above: Performed By: #### VERONICA SIERRA #### [facility] [address] [address] [address] Dandy Dobson Chloride [Moles/Vol] 103 mmol/L Normal 98-107 [facility] Comment on above: Performed By: #### VERONICA SIERRA #### [facility] [address] [place] [address] Dr. Dandy Dobson CO2 [Moles/Vol] 28.2 mmol/L Normal 21.0-32.0 [facility] Comment on above: Performed By: #### HELEN SIERRARO #### [facility] [address] [place] [address] Dr. Dandy Dobson Creatinine [Mass/Vol] 0.57 mg/dL Normal 0.55-1.02 [facility] Comment on above: Performed By: #### HELEN SIERRARO #### [facility] [address] [place] [address] Dr. Dandy Dobson EGFR-AF COMORAN >60 Normal >=60 [facility] Comment on above: Performed By: #### HELEN SIERRARO #### [facility] [address] [place] [address] Dr. Dandy Dobson EGFR-NON AF COMORAN >60 Normal >=60 [facility] Comment on above: Performed By: #### HELEN SIERRARO #### [facility] [address] [place] [address] Dr. Dandy Dobson Globulin (S) [Mass/Vol] 3.7 g/dL Normal [facility] Comment on above: Performed By: #### HELEN SIERRARO #### [facility] [address] [place] [address] Dr. Dandy Dobson Glucose [Mass/Vol] 107 mg/dL Critically high 74-106 T [facility] Comment on above: Performed By: #### HELEN SIERRARO #### [facility] [address] [place] [address] Dr. Dandy Dobson Potassium [Moles/Vol] 3.5 mmol/L Normal 3.5-5.1 [facility] Comment on above: Performed By: #### E RUR, UMICRO #### [facility] [address] [place] [address] Dr. Dandy Dobson Protein [Mass/Vol] 7.5 g/dL Normal 6.4-8.2 [facility] Comment on above: Performed By: #### Jony HUGHES UMICRO #### [facility] [address] [place] [address] Dr. Dandy Dobson Sodium [Moles/Vol] 139 mmol/L Normal 136-145 [facility] Comment on above: Performed By: #### Jony HUGHES UMICRO #### [facility] [address] [place] [address] Dr. Dandy Dobson Urea nitrogen [Mass/Vol] 12.0 mg/dL Normal 7.0-18.0 [facility] Comment on above: Performed By: #### Jony HUGHES UMICRO #### [facility] [address] [place] [address] Dr. Dandy Dobson Urea nitrogen/Creatinine [Mass ratio] 21.1 mg/mg Normal [facility] Comment on above: Performed By: #### Jony HUGHES UMICRO #### [facility] [address] [place] [address] Dr. Dandy Dobson TSHon 09-14-2022 TSH 0.015 uIU/mL Critically low 0.358-3.740 [facility] Comment on above: Performed By: #### Jony HUGHES UMICRO #### [facility] [address] [place] [address] Dr. Dandy Dobson VITAMIN B12on 09-14-2022 Cobalamin (Vitamin B12) [Mass/Vol] 485.0 pg/mL Normal 193.0-986.0 [facility] Comment on above: Performed By: #### V ITB12, IRON, FT4, FERR #### [facility] [address] [place] [address] Dr. Dandy Dobson GLYCOHEMOGLOBIN A1Con 2021 ADA RECOMMENDATION SEE BELOW Normal [facility] Comment on above: Result Comment: ADA RECOMMENDED LIMIT 4.0 - 6.0 ADA THERAPEUTIC TARGET < 7.0 ACTION SUGGESTED > 7.0 Performed By: #### A 1C #### [facility] [address] [address] [address] Dandy Dobson Glucose [Mass/Vol] 143 mg/dL Normal [facility] Comment on above: Performed By: #### A 1C #### [facility] [address] [address] [address] Dandy Dobson HbA1c (Bld) [Mass fraction] 6.6 % Critically high 4.5-6.2 [facility] Comment on above: Performed By: #### A 1C #### [facility] [address] [place] [address] Dr. Dandy Dobson LIPID PROFILEon 06-09-2022 CHOL-HDL RATIO NORM SEE BELOW Normal [facility] Comment on above: Result Comment: 3.3 - 4.4 LOW RISK 4.4 - 7.1 AVERAGE RISK 7.1 - 11.0 MODERATE RISK >11.0 HIGH RISK Performed By: #### VERONICA SIERRA #### [facility] [address] [place] [address] Dr. Dandy Dobson Cholesterol [Mass/Vol] 138 mg/dL Normal <=200 [facility] Comment on above: Performed By: #### VERONICA SIERRA #### [facility] [address] [place] [address] Dr. Dandy Dobson Cholesterol in HDL [Mass/Vol] 46 mg/dL Normal 40-60 [facility] Comment on above: Performed By: #### VERNOICA SIERRA #### [facility] [address] [place] [address] Dr. Dandy Dobson Cholesterol in LDL [Mass/Vol] 62.4 mg/dL Normal [facility] Comment on above: Performed By: #### VERONICA SIERRA #### [facility] [address] [place] [address] Dr. Dandy Dobson Cholesterol.total/Chol esterol in HDL [Mass ratio] 3.0 {ratio} Normal [facility] Comment on above: Performed By: #### VERONICA SIERRA #### [facility] [address] [place] [address] Dr. Dandy Dobson HDL NORMAL > or = 60 mg/dl - LOW CARDIOVASCULAR RISK <40 mg/dl - HIGH CARDIOVASCULAR RISK Normal [facility] Comment on above: Performed By: #### VERONICA SIERRA #### [facility] [address] [address] [address] Dandy Dobson LDL CALC NORMAL SEE BELOW Normal [facility] [place] Comment on above: Result Comment: <100 mg/dl OPTIMAL 100 - 129 mg/dl NEAR OR ABOVE OPTIMAL 130 - 159 mg/dl BORDERLINE HIGH 160 - 189 mg/dl HIGH >190 mg/dl VERY HIGH Performed By: #### VERONICA SIERRA #### [facility] [address] [address] [address] Dandy Dobson Triglyceride [Mass/Vol] 148 mg/dL Normal <=150 [facility] Comment on above: Performed By: #### VERONICA SIERRA #### [facility] [address] [place] [address] Dr. Dandy Dobson VLDL CALC 29.6 mg/dL Normal [facility] Comment on above: Performed By: #### VERONICA SIERRA #### [facility] [address] [place] [address] Dr. Dandy Dobson PROF CHEM 8 (BAS METB)on Anion gap [Moles/Vol] 9.4 mmol/L Normal [facility] Comment on above: Performed By: #### VERONICA SIERRA #### [facility] [address] [place] [address] Dr. Dandy Dobson Calcium [Mass/Vol] 8.7 mg/dL Normal 8.5-10.1 [facility] Comment on above: Performed By: #### VERONICA SIERRA #### [facility] [address] [place] [address] Dr. Dandy Dobson Chloride [Moles/Vol] 104 mmol/L Normal 98-107 [facility] Comment on above: Performed By: #### VERONICA SIERRA #### [facility] [address] [address] [address] Dandy Dobson CO2 [Moles/Vol] 28.8 mmol/L Normal 21.0-32.0 [facility] Comment on above: Performed By: #### Jony HUGHES, UMICRO #### [facility] [address] [address] [address] Dandy Dobson Creatinine [Mass/Vol] 0.67 mg/dL Normal 0.55-1.02 [facility] Comment on above: Performed By: #### Jony HUGHES, UMICRO #### [facility] [address] [address] [address] Dandy Dobson EGFR-AF COMORAN >60 Normal >=60 [facility] Comment on above: Performed By: #### Jony HUGHES, UMICRO #### [facility] [address] [place] [address] Dr. Dandy Dobson EGFR-NON AF COMORAN >60 Normal >=60 [facility] Comment on above: Performed By: #### Jony HUGHES, UMICRO #### [facility] [address] [address] [address] Dandy Dobson Glucose [Mass/Vol] 120 mg/dL Critically high 74-106 [facility] Comment on above: Performed By: #### Jony HUGHES, UMICRO #### [facility] [address] [place] [address] Dr. Dandy Dobson Potassium [Moles/Vol] 4.2 mmol/L Normal 3.5-5.1 [facility] Comment on above: Performed By: #### Jony HUGHES, UMICRO #### [facility] [address] [address] [address] Dandy Dobson Sodium [Moles/Vol] 138 mmol/L Normal 136-145 [facility] Comment on above: Performed By: #### Jony HUGHES, UMICRO #### [facility] [address] [address] [address] Dandy Dobson Urea nitrogen [Mass/Vol] 17.0 mg/dL Normal 7.0-18.0 [facility] Comment on above: Performed By: #### VERONICA SIERRA #### [facility] [address] [place], [place] [address] Dr. Dandy Dobson Urea nitrogen/Creatinine [Mass ratio] 25.4 mg/mg Normal [facility] Comment on above: Performed By: #### VERONICA SIERRA #### [facility] [address] [place], [place] [address] Dr. Dandy Dobson MRI BRAIN WO CONon 2 MRI BRAIN WO CON EXAMINATION: MRI BRAIN [...] by: MANJU CHAMPAGNE Date: 2022-02-15 16:53 Normal [facility] CHEMISTRYOrdered By: SYSTEM SYSTEM on 02-04-2022 Troponin I.cardiac [Mass/Vol] 4.40 pg/mL Low 10.10 - 27.10 pg/mL [facility] Remisol Anion gap [Moles/Vol] 12 mmol/L Normal 6 - 16 mEq/L [facility] Remisol Calcium [Mass/Vol] 8.8 mg/dL Low 8.9 - 11. 1 mg/dL [facility] Remisol Chloride [Moles/Vol] 102 mmol/L Normal 101 - 1 11 mmol/L [facility] Remisol CO2 [Moles/Vol] 24 mmol/L Normal 21 - 31 mmol/L [facility] Remisol Creatinine [Mass/Vol] 0.6 mg/dL Normal 0.5 - 1.3 mg/dL [facility] Remisol GFR/1.73 sq M.predicted among blacks MDRD (S/P/Bld) [Vol rate/Area] mL/min/1.73 m2 Normal >=59mL/min/1 .73 m2 [facility] Chem S GFR/1.73 sq M.predicted among non-blacks MDRD (S/P/Bld) [Vol rate/Area] mL/min/1.73 m2 Normal >=59mL/min/1 .73 m2 [facility] Chem S Glucose [Mass/Vol] 150 mg/dL Normal 55 - 199 mg/dL [facility] Remisol Lipase [Catalytic activity/Vol] 38 U/L Normal 13 - 58 unit/L [facility] Remisol Magnesium [Mass/Vol] 1.9 mg/dL Normal 1.3 - 2 .4 mg/dL [facility] Remisol Potassium [Moles/Vol] 3.1 mmol/L Low 3.5 - 5.3 mmol/L [facility] Remisol Sodium [Moles/Vol] 135 mmol/L Normal 135 - 145 mmol/L [facility] Remisol Troponin I.cardiac [Mass/Vol] 4.10 pg/mL Low 10.10 - 27.10 pg/mL [facility] Remisol Urea nitrogen [Mass/Vol] 10 mg/dL Normal 5 - 21 mg/dL [facility]/Creatinine [Mass ratio] 17 mg/mg Normal 10 - 20 [facility] Remisol CHEMISTRYOrdered By: Ciara quintana on 02-04-2022 Natriuretic peptide B (Bld) [Mass/Vol] 33 pg/mL Normal 5 - 80 pg/mL [facility] [employer] CHEMISTRYOrdered By: Froilan ROP User on 02-04-2022 Glucose [Mass/Vol] 144 mg/dL High 55 - 99 mg/dL [facility] POC Subsection POC Device SN [id number] Invalid Interpretation Code [facility] POC Subsection POC User ID [id number] Invalid Interpretation Code [facility] POC Subsection POC Username RADHA REY Invalid Interpretation Code [facility] P[facility] Subsection COAGULATIONOrdered By: Christina Colindres on 02-04-2022 aPTT Coag (PPP) [Time] 32.0 s Normal 25.1 - 36.5 second(s) [facility] Auto Coag INR Coag (PPP) [Relative time] 1.0 {INR} Invalid Interpretation Code [facility] Auto Coag PT Coag (PPP) [Time] 11.6 s Normal 10.2 - 12.9 second(s) [facility] Auto Coag HEMATOLOGYOrdered By: SYSTEM SYSTEM on [...] PM) Normal Negative [facility] UA Auto SS Refugio.plasma/Refugio .RBC (Bld) [Mass ratio] 0-3 /HPF Normal 0-3/HPF [facility] UA Auto SS Nitrite Ql (U) Negative (02/04/22 7:21 PM) Normal Negative [facility] UA Auto SS pH (U) 7.0 *NA* (02/04/22 7:21 PM) Invalid Interpretation Code 5.0 - 9.0 [facility] UA Auto SS Protein (U) [Mass/Vol] Negative (02/04/22 7:21 PM) Normal Negative [facility] UA Auto SS Specific gravity (U) [Rel density] 1.010 *NA* (02/04/22 7:21 PM) Invalid Interpretation Code 1.005 - 1.030 [facility] UA Auto SS UA Spec Desc Random Urine (02/04/22 7:21 PM) Normal [facility] UA Auto SS Urobilinogen Qn (U) [id number] {Sarahi'U}/dL Normal 0.0 - 1.0 EU/dL [facility] UA Auto SS WBC Auto Ql (U) Negative (02/04/22 7:21 PM) Normal Negative [facility]A Auto SS WBC LM.HPF (Urine sed) [#/Area] 0-5 /HPF Normal 0-5/HPF [facility] Auto SS CBC AUTO DIFFon 12-31-2021 BASO # 0.0 103/ul Normal 0.0-0.1 [facility] Comment on above: Performed By: #### C BC #### [facility] [address] [place] [address] Dr. Dandy Dobson Basophils/100 WBC (Bld) 0.2 % Normal 0.2-2.0 [facility] Comment on above: Performed By: #### C BC #### [facility] [address] [place] [address] Dr. Dandy Dobson EO # 0.0 103/ul Normal 0.0-0.7 [facility] Comment on above: Performed By: #### C BC #### [facility] [address] [place] [address] Dr. Dandy Dobson Eosinophils/100 WBC (Bld) 0.1 % Critically low 0.9-7.0 [facility] Comment on above: Performed By: #### C BC #### [facility] [address] [place] [address] Dr. Dandy Dobson Erythrocyte distribution width (RBC) [Ratio] 13.9 % Normal 11.0-15.0 [facility] Comment on above: Performed By: #### C BC #### [facility] [address] [place] [address] Dr. Dandy Dobson Hematocrit (Bld) [Volume fraction] 42.7 % Normal 36.0-48.0 [facility] Comment on above: Performed By: #### C BC #### [facility] [address] [place] [address] Dr. Dandy Dobson Hemoglobin (Bld) [Mass/Vol] 13.9 g/dL Normal 12.0-16.0 [facility] Comment on above: Performed By: #### C BC #### [facility] [address] [place] [address] Dr. Dandy Dobson IG # 0.03 10e3/ul Normal 0.00-0.03 [facility] Comment on above: Performed By: #### C BC #### [facility] [address] [place] [address] Dr. Dandy Dobson IG % 0.3 % Normal 0.0-0.5 [facility] Comment on above: Performed By: #### C BC #### [facility] [address] [place] [address] Dr. Dandy Dobson LYMPH # 1.2 103/ul Normal 1.2-3.8 [facility] Comment on above: Performed By: #### C BC #### [facility] [address] [place] [address] Dr. Dandy Dobson Lymphocytes/100 WBC (Bld) 13.5 % Critically low 20.5-60.0 [facility] Comment on above: Performed By: #### C BC #### [facility] [address] [place] [address] Dr. Dandy Dobson MANUAL DIFF REQ NO Normal [facility] [place] Comment on above: Performed By: #### C BC #### [facility] [address] [place], [place] [id number] Dr. Dandy Dobson MCH (RBC) [Entitic mass] 27.4 pg Normal 26.7-34.0 [facility] Comment on above: Performed By: #### C BC #### [facility] [address] [place] [address] Dr. Dandy Dobson MCHC (RBC) [Mass/Vol] 32.6 g/dL Normal 29.9-35.2 [facility] Comment on above: Performed By: #### C BC #### [facility] [address] [place] [address] Dr. Dandy Dobson MCV (RBC) [Entitic vol] 84.2 fL Normal 81.0-99.0 [facility] Comment on above: Performed By: #### C BC #### [facility] [address] [place] [address] Dr. Dandy Dobson MONO # 0.4 103/ul Normal 0.3-0.8 [facility] Comment on above: Performed By: #### C BC #### [facility] [address] [place] [address] Dr. Danyd Dobson Monocytes/100 WBC (Bld) 5.0 % Normal 1.7-12.0 [facility] Comment on above: Performed By: #### C BC #### [facility] [address] [place] [address] Dr. Dandy Dobson NEUT # 7.1 103/ul Critically high 1.4-6.5 [facility] [place] Comment on above: Performed By: #### C BC #### [facility] [address] [place] [address] Dr. Dandy Dobson Neutrophils/100 WBC (Bld) 80.9 % Critically high 43.0-75.0 [facility] Comment on above: Performed By: #### C BC #### [facility] [address] [place] [address] Dr. Dandy Dobson Platelet mean volume (Bld) [Entitic vol] 10.4 fL Normal 9.5-13.5 [facility] Comment on above: Performed By: #### C BC #### [facility] [address] [place] [address] Dr. Dandy Dobson PLT 256 103/ul Normal 150-450 [facility] Comment on above: Performed By: #### C BC #### [facility] [address] [place] [address] Dr. Dandy Dobson RBC 5.07 106/ul Normal 4.20-5.40 [facility] Comment on above: Performed By: #### C BC #### [facility] [address] [place] [address] Dr. Dandy Dobson WBC 8.8 103/ul Normal 4.0-11.0 [facility] Comment on above: Performed By: #### C BC #### [facility] [address] [place] [address] Dr. Dandy Dobson PROF CHEM 8 (BAS METB)on Anion gap [Moles/Vol] 11.2 mmol/L Normal [facility] Comment on above: Performed By: #### VERONICA SIERRA #### [facility] [address] [place] [address] Dr. Dandy Dobson Calcium [Mass/Vol] 8.2 mg/dL Critically low 8.5-10.1 [facility] Comment on above: Performed By: #### VERONICA SIERRA #### [facility] [address] [place] [address] Dr. Dandy Dobson Chloride [Moles/Vol] 100 mmol/L Normal 98-107 [facility] Comment on above: Performed By: #### HELEN SIERRARO #### [facility] [address] [place] [address] Dr. Dandy Dobson CO2 [Moles/Vol] 25.5 mmol/L Normal 21.0-32.0 [facility] Comment on above: Performed By: #### VERONICA SIERRA #### [facility] [address] [place] [address] Dr. Dandy Dobson Creatinine [Mass/Vol] 0.72 mg/dL Normal 0.55-1.02 [facility] Comment on above: Performed By: #### E SAUL, UMICRO #### [facility] [address] [address] [address] Dandy Dobson EGFR-AF COMORAN >60 Normal >=60 [facility] Comment on above: Performed By: #### E RUR, UMICRO #### [facility] [address] [address] [address] Dandy Dobson EGFR-NON AF COMORAN >60 Normal >=60 [facility] Comment on above: Performed By: #### E SAUL, UMICRO #### [facility] [address] [address] [address] Dandy Dobson Glucose [Mass/Vol] 201 mg/dL Critically high 74-106 T [facility] Comment on above: Performed By: #### E SAUL, UMICRO #### [facility] [address] [place] [address] Dr. Dandy Dobson Potassium [Moles/Vol] 3.7 mmol/L Normal 3.5-5.1 [facility] Comment on above: Performed By: #### Jony HUGHES UMICRO #### [facility] [address] [address] [address] Dandy Dobson Sodium [Moles/Vol] 133 mmol/L Critically low 136-145 [facility] Comment on above: Performed By: #### E SAUL UMICRO #### [facility] [address] [place] [address] Dr. Dandy Dobson Urea nitrogen [Mass/Vol] 9.0 mg/dL Normal 7.0-18.0 [facility] Comment on above: Performed By: #### E SAUL UMICRO #### [facility] [address] [place] [address] Dr. Dandy Dobson Urea nitrogen/Creatinine [Mass ratio] 12.5 mg/mg Normal [facility] Comment on above: Performed By: #### E SAUL, UMICRO #### [facility] [address] [place] [address] Dr. Dandy Rausch 01-22-2021 TRESAN Telephone ([facility]) APRYL DOWNS ([id number]) 1980 F Date Time Provider Department 01/22/21 JOB WEBER During your visit today, we recorded the following information about you: Carla Barrera [facility] 01/22/2021 9:01 AM Signed Patient called in [...] patient to schedule. Thank you. Carla Barrera [facility] Job Weber APRN.TRESA 01/22/2021 10:31 AM Signed Yes patient can be added to my schedule. Job Weber APRN.TRESA Barrera [facility] 01/22/2021 10:39 AM Signed Called and spoke with patient. Patient has been scheduled to see Job 01/28 @ 11:00. Patient is aware she will be seeing Job for this appointment. Carla Barrera [facility] Allergies As of Date: 01/22/2021 Noted Allergy Reaction OXYCODONE-ACETAMINOP HEN 09/09/2020 2 - Rash Comments: Has tolerated norco in the past Date Reviewed: 01/22/2021 Reviewed by: Job Weber APRN.ULTRASOUND SPECIALIST - Fully Assessed Reason for Visit: Future [...] 10/02/2020 Heart murmur [R01.1] 10/02/2020 Patient is Church [Z78.9] 10/02/2020 Encounter Status:Closed by CARLA SANTIAGO on 01/22/21 [facility] CNPNon 10-28-2020 CNPN Telephone ([facility]) APRYL DOWNS ([id number]) 1980 F Date Time Provider Department 10/28/20 AYAH MUÑOZ [facility] During your visit today, we recorded [...] Diagnosis:Excessive bleeding in premenopausal period [N92.4] Order(s):CBC [[facility]] Order #: [id number] FUTURE Prescriptions as of 10/28/2020 Sig: METFORMIN [...] Heart murmur [R01.1] 10/02/2020 More... Patient is Church [Z78.9] 10/02/2020 More... Encounter Status:Closed by MARJORIE NOBLES RN on 10/29/20 [facility] 10[facility]06-[id number] APRYL DOW[facility] ([id number]) 1980 F Date Time Provider Department 10/06/20 AYAH MUÑOZ [id number] During your visit today, we recorded the following information about you: Yoli Jacobo 10/06/2020 9:46 AM Signed Apryl Downs called today. : 1980 Allergies: Oxycodone-Acetaminop hen (home) [phone] (cell) Reason for call: Patient calling with foul odor coming from her incision, did have fever on Tuesday. Had ablation on Tuesday. Patient last appointment: 09/25/2020 The patients preferred pharmacy has been captured for this encounter? not asked Yoli March Pss Lana Blackmon RN 10/06/2020 10:17 AM Signed Called [...] of provider message. Work release sent via [employer]. Pt verbalized understanding. Lana Blackmon RN Allergies [...] Heart murmur [R01.1] 10/02/2020 More... Patient is Church [Z78.9] 10/02/2020 More... Letter Text Encounter Status:Closed by LANA BLACKMON RN on 10/06/20 Normal [facility] ANES POSTPROC EVALon 021 ANES POSTPROC EVAL HNO ID: [id number] Author: Naz Caballero Service: Anesthesiology Author Type: Anesthesiologist Type: Anesthesia Postprocedure Evaluation Filed: 10/03/2020 8:32 AM Note Text: POST ANESTHESIA EVALUATION NOTE : 1980 Procedure Summary Date: 10/03/20 Room / Location: OR05 / AV OR Anesthesia Start: 42 Anesthesia Stop: 815 Procedures: HYSTEROSCOPY WITH ENDOMETRIAL [...] October 03, 2020 TIME: 8:32 AM CSN: [id number] [facility] ANES PRE-OPon 10-03-2020 ANES PRE-OP HNO ID: [id number] Author: Naz Caballero Service: Anesthesiology Author Type: [...] October 03, 2020 TIME: 7:02 AM CSN: [id number] Normal [facility] OPERATIVE NOon 10-03-2020 OPERATIVE NO HNO ID: [id number] Author: Ayah Muñoz Service: Gynecology Author Type: Physician Type: Operative Report Filed: 10/03/2020 4:23 PM Note Text: [facility] - Operative Report APYRL DOWNS : 1980 AGE: 40. SEX: F PATIENT TYPE: A HOSP SVC: OBGYN LOCATION: [facility] ATTENDING PHYSICIAN: Ayah Muñoz M.D. CSN NUMBER: [id number] DATE OF SURGERY/PROCEDURE: 10/03/2020 INCISION/PROCEDURE START TIME: 7:57 AM INCISION CLOSE/PROCEDURE END TIME: 8:07 AM PREOPERATIVE DIAGNOSIS: Menorrhagia. POSTOPERATIVE DIAGNOSIS: Menorrhagia. SURGEON: Ayah Muñoz M.D. LARRY OPERATOR: None. SURGERY/PROCEDURE: Hysteroscopy, Ann endometrial ablation, D [...] correct x3. ESTIMATED BLOOD LOSS: 5 mL. Ankur LovettB:[id number] /[id number] Normal [facility] SURGICAL PATHOLOGYon 021 SURGICAL PATHOLOGY Specimen originated from [facility] Specimen #: [id number] Submitting Physician: AYAH MUÑOZ MD FINAL DIAGNOSIS [...] in five cassettes. Gross examination performed at [facility], [address] [place] [address] 10/03/2020 12:53:09 PM Date of Report: 10/06/2020 Date of Procedure: 10/03/2020 Date of Receipt: 10/03/2020 Submitted by: AYAH MUÑOZ MD Location: [facility] Diagnostic interpretation performed at [facility], [address] [place] [address]. CLIA Number: [id number] Normal [facility] Comment on above: Performed [...] murmur [R01.1] Heart murmur [R01.1] Patient is Church [Z78.9] Allergies: Oxycodone-Acetaminop hen Date Verified: 10/03/20 Lab Values Lab Value Units Date High Low POTA* 4.1 mmol/L 09/19/2020 5.1 3.7 BRISEIDA* 29.5 % 09/24/2020 46.0 36.0 Progress Notes (MANAGER PRODUCT [facility] 650): Marjorie Nobles RN 09/25/2020 2:34 PM [...] PM Signed Pt scheduled for 10/03/20 at [facility] for Hysteroscopy endometrial ablation [facility] for menorrhagia AND anemia through [facility] today. Pt notified of the all surgery information above. Pt aware that she will require pre op testing prior to surgery and PAT number given to pt to call and schedule. Pt aware PAT needs completed to proceed with surgery. Pt is aware she will need to be at [place] as instructed by [facility] facility and no solid food after midnight. The [facility] facility will contact the pt the day [...] for surgical case scheduled for 10/03/20 at [place], please approve if appropriate. Spoke with pt. Pt aware if she can provider hard copy of positive test then she will not need test but if not she needs to be tested per [place] surgery scheduling. COVID scheduled for 10/01/20 at 12:30 pm at [place], pt aware. Progress Notes (BRISEIDA EVANSUSKY ): Halima Alvarez 09/24/2020 11:12 AM Signed [...] anemia, seen for scheduled follow-up. (Former [facility]) INTERIM HISTORY: Apryl Downs returns for [...] on 10/09/2020 for a pelvic ultrasound the metal cut off saw tender's office will be calling her to set [...] medications. Continue management per PCP. Job Weber APRN.ULTRASOUND SPECIALIST Normal [facility] BASIC METABOLIC PANELon 08-0 Calcium [Mass/Vol] 8.4 mg/dL Low 8.6-10.3 [facility] Comment on above: Order Comment: No: D o not add to previous draw Performed By: #### 3 1079 #### [facility] [address] [place] [address], [place] Chloride [Moles/Vol] 108 mmol/L High 98-107 [facility] Comment on above: Order Comment: No: D o not add to previous draw Performed By: #### 3 1079 #### [facility] [address] [place] [address], [place] CO2 [Moles/Vol] 25 mmol/L Normal 21-31 [facility] Comment on above: Order Comment: No: D o not add to previous draw Performed By: #### 3 1079 #### [facility] [address] [place] [address], [place] Creatinine [Mass/Vol] 0.45 mg/dL Low 0.60-1.20 [facility] Comment on above: Order Comment: No: D o not add to previous draw Performed By: #### 3 1079 #### [facility] [address] [place] [address], [place] GFR/1.73 sq M predicted among blacks MDRD (S/P/Bld) [Vol rate/Area] mL/min/{1.73_m2} Normal >60 [facility] Comment on above: Order Comment: No: D o not add to previous draw Performed By: #### 3 1079 #### [facility] [address] [place] [address], [place] GFR/1.73 sq M predicted among non-blacks MDRD (S/P/Bld) [Vol rate/Area] mL/min/{1.73_m2} Normal >60 [facility] Comment on above: Order Comment: No: D o not add to previous draw Performed By: #### 3 1079 #### [facility] [address] [place] [address], [place] Glucose [Mass/Vol] 123 mg/dL High 70-100 [facility] Comment on above: Order Comment: No: D o not add to previous draw Performed By: #### 3 1079 #### [facility] [address] [place] [address], [place] Potassium [Moles/Vol] 3.7 mmol/L Normal 3.5-5.1 [facility] Comment on above: Order Comment: No: D o not add to previous draw Performed By: #### 3 1079 #### [facility] [address] [place] [address], [place] Sodium [Moles/Vol] 137 mmol/L Normal 136-145 [facility] Comment on above: Order Comment: No: D o not add to previous draw Performed By: #### 3 1079 #### [facility] [address] [place] [address], [place] Urea nitrogen [Mass/Vol] 14 mg/dL Normal 7-25 [facility] Comment on above: Order Comment: No: D o not add to previous draw Performed By: #### 3 1079 #### [facility] [address] [place] [address], [facility] CBC COMPLETE BLOOD COUNTon 04-02-2019 Erythrocyte distribution width (RBC) [Ratio] 13.4 % Normal 11.5-15.0 [facility] Comment on above: Order Comment: No: D o not add to previous draw Performed By: #### 3 1079 #### [facility] [address] [place] [address], [facility] Hematocrit (Bld) [Volume fraction] 36.6 % Normal 36.0-45.0 [facility] Comment on above: Order Comment: No: D o not add to previous draw Performed By: #### 3 1079 #### [facility] [address] [place] [address], [facility] Hemoglobin (Bld) [Mass/Vol] 11.7 g/dL Low 12.0-15.0 [facility] Comment on above: Order Comment: No: D o not add to previous draw Performed By: #### 3 1079 #### [facility] [address] [place] [address], [facility] MCH (RBC) [Entitic mass] 29.2 pg Normal 27.0-33.0 [facility] Comment on above: Order Comment: No: D o not add to previous draw Performed By: #### 3 1079 #### [facility] [address] [place] [address], [facility] MCHC (RBC) [Mass/Vol] 32.0 g/dL Normal 32.0-35.0 [facility] Comment on above: Order Comment: No: D o not add to previous draw Performed By: #### 3 1079 #### [facility] [address] [facility] [place] [address], [facility] MCV (RBC) [Entitic vol] 91.3 fL Normal 82.0-98.0 [facility] Comment on above: Order Comment: No: D o not add to previous draw Performed By: #### 3 1079 #### [facility] [address] [facility] [place] [place] [address], [facility] Nucleated RBC/100 WBC (Bld) [Ratio] 0 % Normal 0-0 [facility] Comment on above: Order Comment: No: D o not add to previous draw Performed By: #### 3 1079 #### [facility] [address] [facility] [place] [place] [address], [facility] PLAT CNT 227 10*3/uL Normal 150-400 [facility] Comment on above: Order Comment: No: D o not add to previous draw Performed By: #### 3 1079 #### [facility] [address] [facility] [place] [address], [facility] RBC (Bld) [#/Vol] 4.01 10*6/uL Normal 3.80-5.00 [facility] Comment on above: Order Comment: No: D o not add to previous draw Performed By: #### 3 1079 #### [facility] [address] [place] [address], [place] WBC (Bld) [#/Vol] 5.58 10*3/uL Normal 4.00-10.60 [facility] Comment on above: Order Comment: No: D o not add to previous draw Performed By: #### 3 1079 #### [facility] [address] [place] [address], [facility] POC GLUCOSE LABon 04-02-2019 Glucose [Mass/Vol] 135 mg/dL High 70-100 [facility] Comment on above: Performed By: #### 3 1079 #### [facility] [address] [place] [address], [place] Glucose [Mass/Vol] 124 mg/dL High 70-100 [facility] Comment on above: Performed By: #### 3 1079 #### [facility] [address] [facility] [place] [address], [facility] URINALYSIS REFLEXon 04-02-20 19 AMORPHOUS FEW Abnormal NONE SEEN [facility] Comment on above: Order Comment: No: D o not add to previous draw Performed By: #### 3 1079 #### [facility] [address] [place] [address], [place] Appearance (U) SL CLOUDY Abnormal CLEAR [facility] Comment on above: Order Comment: No: D o not add to previous draw Performed By: #### 3 1079 #### [facility] [address] [place] [address], [place] Bilirubin [Mass/Vol] Negative Normal NEGATIVE [facility] Comment on above: Order Comment: No: D o not add to previous draw Performed By: #### 3 1079 #### [facility] [address] [place] [address], [place] BLOOD LARGE Abnormal NEGATIVE [facility] Comment on above: Order Comment: No: D o not add to previous draw Performed By: #### 3 1079 #### [facility] [address] [place] [address], [place] Color (U) YELLOW Normal YELLOW [facility] Comment on above: Order Comment: No: D o not add to previous draw Performed By: #### 3 1079 #### [facility] [address] [place] [address], [place] EPIS MANY Abnormal FEW,OCC,NONE SEEN [facility] Comment on above: Order Comment: No: D o not add to previous draw Performed By: #### 3 1079 #### [facility] [address] [place] [address], [place] Glucose [Mass/Vol] Negative Normal NEGATIVE [facility] Comment on above: Order Comment: No: D o not add to previous draw Performed By: #### 3 1079 #### [facility] [address] [place] [address], [facility] KETONE Negative Normal NEGATIVE [facility] Comment on above: Order Comment: No: D o not add to previous draw Performed By: #### 3 1079 #### [facility] [address] [place] [address], [place] LEUK TITI Negative Normal NEGATIVE [facility] Comment on above: Order Comment: No: D o not add to previous draw Performed By: #### 3 1079 #### [facility] [address] [place] [address], [place] MUCUS THREADS FEW Abnormal NONE SEEN [facility] Comment on above: Order Comment: No: D o not add to previous draw Performed By: #### 3 1079 #### [facility] [address] [place] [address], [facility] Nitrite Ql (U) Negative Normal NEGATIVE [facility] Comment on above: Order Comment: No: D o not add to previous draw Performed By: #### 3 1079 #### [facility] [address] [place] [id number], [facility] pH (Bld) 7.0 Normal 5.0-8.0 [facility] Comment on above: Order Comment: No: D o not add to previous draw Performed By: #### 3 1079 #### [facility] [address] [place] [address], [facility] Protein (U) [Mass/Vol] Negative Normal NEGATIVE e [facility] Comment on above: Order Comment: No: D o not add to previous draw Performed By: #### 3 1079 #### [facility] [address] [place] [address], [facility] RBC (U) [#/Vol] 0-2 Abnormal NONE SEEN [facility] Comment on above: Order Comment: No: D o not add to previous draw Performed By: #### 3 1079 #### [facility] [address] [place] [address], [facility] SPEC GRAV 1.017 Normal 1.015-1.020 [facility] Comment on above: Order Comment: No: D o not add to previous draw Performed By: #### 3 1079 #### [facility] [address] [place] [address], [facility] UA COMMENT 2 UROBILINOGEN (E.U./DL) 4.0 Normal [facility] Comment on above: Order Comment: No: D o not add to previous draw Performed By: #### 3 1079 #### [facility] [address] [place] [address], [facility] WBC UA 0-2 Abnormal NONE SEEN [facility] Comment on above: Order Comment: No: D o not add to previous draw Performed By: #### 3 1079 #### [facility] [address] [place] [address], [place] BASIC METABOLIC PANELon 08-0 Calcium [Mass/Vol] 8.6 mg/dL Normal 8.6-10.3 [facility] Comment on above: Order Comment: No: D o not add to previous draw Performed By: #### 4 1000, 14836, 13054 #### [facility] [address] [place] [address], [place] Chloride [Moles/Vol] 107 mmol/L Normal 98-107 [facility] Comment on above: Order Comment: No: D o not add to previous draw Performed By: #### 4 1000, , 11814 #### [facility] [address] [place] [address], [place] CO2 [Moles/Vol] 24 mmol/L Normal 21-31 [facility] Comment on above: Order Comment: No: D o not add to previous draw Performed By: #### 4 1000, , 93424 #### [facility] [address] [place] [address], [place] Creatinine [Mass/Vol] 0.50 mg/dL Low 0.60-1.20 [facility] Comment on above: Order Comment: No: D o not add to previous draw Performed By: #### 4 1000, , 72094 #### [facility] [address] [place] [address], [place] GFR/1.73 sq M predicted among blacks MDRD (S/P/Bld) [Vol rate/Area] mL/min/{1.73_m2} Normal >60 [facility] Comment on above: Order Comment: No: D o not add to previous draw Performed By: #### 4 1000, , 51200 #### [facility] [address] [place] [address], [place] GFR/1.73 sq M predicted among non-blacks MDRD (S/P/Bld) [Vol rate/Area] mL/min/{1.73_m2} Normal >60 [facility] Comment on above: Order Comment: No: D o not add to previous draw Performed By: #### 4 1000, 53276, 17097 #### [facility] [address] [place] [address], [place] Glucose [Mass/Vol] 106 mg/dL High 70-100 [facility] Comment on above: Order Comment: No: D o not add to previous draw Performed By: #### 4 1000, 78692, 38163 #### [facility] [address] [place] [address], [place] Potassium [Moles/Vol] 3.3 mmol/L Low 3.5-5.1 [facility] Comment on above: Order Comment: No: D o not add to previous draw Performed By: #### 4 1000, , 89155 #### [facility] [address] [place] [address], [place] Sodium [Moles/Vol] 139 mmol/L Normal 136-145 [facility] Comment on above: Order Comment: No: D o not add to previous draw Performed By: #### 4 1000, , 16039 #### [facility] [address] [place] [address], [place] Urea nitrogen [Mass/Vol] 11 mg/dL Normal 7-25 [facility] Comment on above: Order Comment: No: D o not add to previous draw Performed By: #### 4 1000, 85654, 85606 #### [facility] [address] [place] [address], [place] CBC COMPLETE BLOOD COUNTon 0 - Erythrocyte distribution width (RBC) [Ratio] 13.5 % Normal 11.5-15.0 [facility] Comment on above: Order Comment: No: D o not add to previous draw Performed By: #### 5 0608, 73403 #### [facility] [address] Hematocrit (Bld) [Volume fraction] 36.7 % Normal 36.0-45.0 [facility] Comment on above: Order Comment: No: D o not add to previous draw Performed By: #### 5 06, 68734 #### [facility] [address] [place] [id number], [facility] Hemoglobin (Bld) [Mass/Vol] 11.9 g/dL Low 12.0-15.0 [facility] Comment on above: Order Comment: No: D o not add to previous draw Performed By: #### 5 607, 66252 #### [facility] [address] [facility] [place] [address], [facility] MCH (RBC) [Entitic mass] 29.0 pg Normal 27.0-33.0 [facility] Comment on above: Order Comment: No: D o not add to previous draw Performed By: #### 5 607, 54159 #### [facility] [address] [facility] [place] [address], [facility] MCHC (RBC) [Mass/Vol] 32.4 g/dL Normal 32.0-35.0 [facility] Comment on above: Order Comment: No: D o not add to previous draw Performed By: #### 5 607, 50292 #### [facility] [address] [facility] [place] [address], [facility] MCV (RBC) [Entitic vol] 89.5 fL Normal 82.0-98.0 [facility] Comment on above: Order Comment: No: D o not add to previous draw Performed By: #### 5 607, 33302 #### [facility] [address] [facility] [place] [place] [address], [facility] Nucleated RBC/100 WBC (Bld) [Ratio] 0 % Normal 0-0 [facility] Comment on above: Order Comment: No: D o not add to previous draw Performed By: #### 5 607, 32780 #### [facility] [address] [place] [address], [facility] PLAT CNT 226 10*3/uL Normal 150-400 [facility] Comment on above: Order Comment: No: D o not add to previous draw Performed By: #### 5 0608, 35611 #### [facility] [address] [place] [address], [facility] RBC (Bld) [#/Vol] 4.10 10*6/uL Normal 3.80-5.00 [facility] Comment on above: Order Comment: No: D o not add to previous draw Performed By: #### 5 0608, 77536 #### [facility] [address] [facility] [place] [address], [facility] WBC (Bld) [#/Vol] 7.18 10*3/uL Normal 4.00-10.60 [facility] Comment on above: Order Comment: No: D o not add to previous draw Performed By: #### 5 0608, 39835 #### [facility] [address] [facility] [place] [place] [address], [facility] CRP HIGH SENSITIVITYon 04-01 HIGH SENSITIVITY CRP 4.39 mg/L Normal [facility] Comment on above: Order Comment: No: D o not add to previous draw Result Comment: HIGH SENSITIVITY CRP (hs_CRP) REFERENCE RANGES Less than 1.0 mg/L: lowest tertile, lowest risk 1.0-3.0 mg/L: middle tertile, average risk Greater than 3.0 mg/L: highest tertile, highest risk Performed By: #### 3 1079 #### [facility] [address] [facility] [place] [place] [address], [facility] CT BRAIN WO CONTRASTon 04-01 CT BRAIN WO CONTRAST [facility] Department of Radiology [address] [place] [address] [phone] Patient Name: APRYL DOWNS : 1980 Sex: F Age: Race: Other Pt. Location: [place] [address] Patient Status: I Ordered Date: 04/01/2019 3:00:00 [...] findings. Electronically signed by:Alice Coello. Transcribed by: [email or web address], User Resident: RYAN GONZALEZ Electronically Signed by: ALICE COELLO @ 04/02/2019 08:59 AM I personally read this/these film(s) with this resident Normal [facility] Comment on above: Order Comment: No: D o not add to previous draw MAGNESIUM BLOODon 04-01-2019 Magnesium [Mass/Vol] 2.2 mg/dL Normal 1.9-2.7 [facility] Comment on above: Order Comment: No: D o not add to previous draw Performed By: #### 4 1000, 24557, 84447 #### [facility] [address] PHOSPHORUS BLOODon 9 Phosphate [Mass/Vol] 3.9 mg/dL Normal 2.5-5.0 [facility] Comment on above: Order Comment: No: D o not add to previous draw Performed By: #### 4 1000, 66960, 56726 #### [facility] [address] [place] [address], [facility] POC GLUCOSE LABon 04-01-2019 Glucose [Mass/Vol] 120 mg/dL High 70-100 [facility] Comment on above: Performed By: #### 3 1079 #### [facility] [address] [place] [address], [facility] SEDIMENTATION RATEon 019 SED RATE 23 mm/hr High 0-20 [facility] Comment on above: Order Comment: No: D o not add to previous draw Performed By: #### 5 0608, 27239 #### [facility] [address] [place] [address], [facility] CT BRAIN PERFUSIONon 019 CT BRAIN PERFUSION [facility] Department of Radiology [address] [place] [address] [phone] Patient Name: APRYL DOWNS : 1980 Sex: F Age: Race: Other Pt. Location: OUTP Patient Status: D Ordered Date: 03/31/2019 2:40:00 PM Completed Date: 03/31/2019 04:08 PM Requesting Provider: AKIN SIABEL Attending Provider: STEF NAZARIO Report Copy To: [...] FINDINGS: Please see report for dictation number [id number] CTA neck CTA brain and perfusion were all dictated together Electronically signed by:Etta Irvin. Transcribed by: [email or web address], User Resident: Electronically Signed by: ETTA IRVIN @ 04/09/2019 10:35 AM Normal [facility] Comment on above: Order Comment: No: D o not add to previous draw CTA NECKon 03-31-2019 CTA NECK [facility] Department of Radiology [address] [place] [phone] Patient Name: PARYL DOWNS : 1980 Sex: F Age: Race: [...] abnormality Electronically signed by:Etta Irvin. Transcribed by: [email or web address], User Resident: Electronically Signed by: ETTA IRVIN @ 03/31/2019 04:31 PM Normal [facility] Comment on above: Order Comment: Strok e transfer, lt side weakness MRI BRAIN W WO CONTRASTon MRI BRAIN W WO CONTRAST [facility] Department of Radiology [address] [place] [phone] Patient Name: APRYL DOWNS : 1980 Sex: F Age: Race: Other Pt. Location: [id number] Patient Status: I Ordered Date: 03/31/2019 4:10:00 [...] findings. Electronically signed by:Etta Irvin. Transcribed by: [email or web address], User Resident: VICKIE ELL[place] Electronically Signed by: ETTA IRVIN @ 04/01/2019 09:56 AM I personally read this/these film(s) with this resident Normal [facility] Comment on above: Order Comment: R/O C [facility] MRI CERVICAL SPINE W WO CONT [facility] 03-31-2019 MRI CERVICAL SPINE W WO CONTRAST [facility] Department of Radiology [address] [place] [phone] Patient Name: APRYL DOWNS : 1980 Sex: F Age: Race: Other Pt. Location: [place] [address] Patient Status: I Ordered Date: 03/31/2019 4:05:00 [...] findings. Electronically signed by:Etta Irvin. Transcribed by: [email or web address], User Resident: VICKIE [place] Electronically Signed by: ETTA IRVIN @ 04/01/2019 09:53 AM I personally read this/these film(s) with this resident Normal [facility] Comment on above: Order Comment: R/O C ord Compression POC GLUCOSE LABon 03-31-2019 Glucose [Mass/Vol] 118 mg/dL High 70-100 [facility] Comment on above: Performed By: #### 8 5499 #### [facility] [address] [place] [address], [facility] TOX PANEL URINEon 03-31-2019 50 THC Negative Normal NEGATIVE [facility] Comment on above: Order Comment: No: D o not add to previous draw Performed By: #### 3 1079 #### [facility] [address] [place] [address], [facility] BARBITURATES Negative Normal NEGATIVE [facility] Comment on above: Order Comment: No: D o not add to previous draw Performed By: #### 3 1079 #### [facility] [address] [place] [address], [facility] Benzodiazepines Ql (U) Negative Normal NEGATIVE Th e [facility] Comment on above: Order Comment: No: D o not add to previous draw Performed By: #### 3 1079 #### [facility] [address] [place] [address], [facility] Cocaine Ql (U) Negative Normal NEGATIVE [facility] Comment on above: Order Comment: No: D o not add to previous draw Performed By: #### 3 1079 #### [facility] [address] [place] [address], [facility] Methadone Ql (U) Negative Normal NEGATIVE [facility] Comment on above: Order Comment: No: D o not add to previous draw Performed By: #### 3 1079 #### [facility] [address] [place] [address], [place] MONO AMPHET Negative Normal NEGATIVE [facility] Comment on above: Order Comment: No: D o not add to previous draw Performed By: #### 3 1079 #### [facility] [address] [place] [address], [place] Opiates Ql (U) Negative Normal NEGATIVE [facility] Comment on above: Order Comment: No: D o not add to previous draw Performed By: #### 3 1079 #### [facility] [address] [place] [address], [place] Phencyclidine Ql (U) Negative Normal NEGATIVE [facility] Comment on above: Order Comment: No: D o not add to previous draw Performed By: #### 3 1079 #### [facility] [address] [place] [address], [place] PROPOXYPHENE Negative Normal NEGATIVE [facility] Comment on above: Order Comment: No: D o not add to previous draw Performed By: #### 3 1079 #### [facility] [address] [place] [address], [place] TRICYCLICS Negative Normal NEGATIVE [facility] Comment on above: Order Comment: No: D o not add to previous draw Performed By: #### 3 1079 #### [facility] [address] [place] [address], [facility] Vital Signs Date Time Vital Sign Value Performing Clinician Facility 06-14-2024 13:32-0400 Body height 161.29 cm [facility] 06-14-2024 13:32-0400 Body mass index (BMI) [Ratio] 34.7 kg/m2 [facility] 06-14-2024 13:32-0400 Body weight 90.26 kg [facility] 06-14-2024 13:32-0400 Diastolic blood pressure 97 mm[Hg] [facility] 06-14-2024 13:32-0400 Heart rate 76 /min [facility] 06-14-2024 13:32-0400 Systolic blood pressure 165 mm[Hg] [facility] 03-19-2024 10:53-0400 Body height 161.29 cm [facility] 03-19-2024 10:53-0400 Body mass index (BMI) [Ratio] 34.5 kg/m2 [facility] 03-19-2024 10:53-0400 Body weight 89.81 kg [facility] 06-14-2023 10:30-0400 Body height 161.29 cm Amanda Villafana Other [facility] Other 06-14-2023 10:30-0400 Body mass index (BMI) [Ratio] 33.13 kg/m2 Amanda Villafana Other [facility] Other 06-14-2023 10:30-0400 Body weight 86.18 kg Amanda Villafana Other [facility] Other 06-14-2023 10:30-0400 Diastolic blood pressure 84 mm[Hg] Amanda Villafana Other [facility] Other 06-14-2023 10:30-0400 Systolic blood pressure 129 mm[Hg] Amanda Villafana Other [facility] Other 02-04-2022 21:00-0400 Diastolic blood pressure 95 mm[Hg] Pete Maldonado [facility] 02-04-2022 21:00-0400 Heart rate 78 /min Pete Joel [facility] 02-04-2022 21:00-0400 Hourly Rounding Pete Joel [facility] 02-04-2022 21:00-0400 Mean blood pressure 126 mm[Hg] Pete Joel [facility] 02-04-2022 21:00-0400 Promise to Return Pete Joel [facility] 02-04-2022 21:00-0400 Respiratory rate 14 /min Pete Joel [facility] 02-04-2022 21:00-0400 SaO2% (BldA) [Mass fraction] 99 % Pete Joel [facility] 02-04-2022 21:00-0400 Systolic blood pressure 189 mm[Hg] Pete Joel [facility] 02-04-2022 20:00-0400 Diastolic blood pressure 94 mm[Hg] Pete Joel [facility] 02-04-2022 20:00-0400 Heart rate 77 /min Pete Joel [facility] 02-04-2022 20:00-0400 Mean blood pressure 125 mm[Hg] Pete Joel [facility] 02-04-2022 20:00-0400 Systolic blood pressure 187 mm[Hg] Pete Joel [facility] 02-04-2022 19:00-0400 Diastolic blood pressure 85 mm[Hg] Pete Joel [facility] 02-04-2022 19:00-0400 Heart rate 74 /min Pete Joel [facility] 02-04-2022 19:00-0400 Mean blood pressure 114 mm[Hg] Pete Joel [facility] 02-04-2022 19:00-0400 Respiratory rate 11 /min Pete Joel [facility] 02-04-2022 19:00-0400 SaO2% (BldA) [Mass fraction] 97 % Pete Joel [facility] 02-04-2022 19:00-0400 Systolic blood pressure 172 mm[Hg] Pete Joel [facility] 02-04-2022 18:22-0400 gluc 146 mg/dL Pete Joel [facility] 02-04-2022 18:22-0400 gluc Pete Maldonado [facility] 02-04-2022 17:55-0400 Body temperature 98.24 [degF] Pete Maldonado [facility] 02-04-2022 17:55-0400 Heart rate 76 /min Pete Maldonado [facility] 02-04-2022 17:55-0400 Respiratory rate 18 /min Pete Maldonado [facility] Encounters Encounter Date Encounter Type Care Provider Facility Start: 06-14-2024 End: 06-14-2024 [facility] Work Phone: Start: 06-14-2024 End: 06-14-2024 Patient encounter procedure [facility] Physician [facility] Work Phone: Start: 03-19-2024 End: 03-19-2024 [facility] Work Phone: Start: 03-19-2024 End: 03-19-2024 Patient encounter procedure [facility] Physician [facility] Work Phone: Start: 03-14-2024 Non-patient / Non-visit [facility] Work Phone: Start: 01-09-2024 ambulatory [facility] Start: 09-26-2023 End: 09-26-2023 ambulatory Amanda Villafana Other [facility] Other Start: 09-26-2023 Telephone encounter Amanda Villafana [facility] Start: 08-24-2023 ambulatory Mateo ALVA Facility :[facility] Start: 08-05-2023 ambulatory AUSTIN MURPHY Facility: [facility] Start: 08-04-2023 Telephone encounter Amanda Villafana [facility] Start: 08-04-2023 End: 08-04-2023 ambulatory Amanda Villafana Other [facility] Other Start: 07-05-2023 End: 07-05-2023 ambulatory Amanda Villafana Other [facility] Other Start: 07-05-2023 Telephone encounter Amanda Villafana [facility] Start: 06-28-2023 End: 06-28-2023 ambulatory Amanda Villafana Other [facility] Other Start: 06-28-2023 Telephone encounter Amanda Villafana [facility] Start: 06-27-2023 End: 06-27-2023 ambulatory Amanda Villafana Other [facility] Other Start: 06-27-2023 Telephone encounter Amanda Villafana [facility] Start: 06-23-2023 End: 06-23-2023 ambulatory Amanda Villafana Other [facility] Other Start: 06-23-2023 Telephone encounter Amanda Villafana [facility] Start: 06-14-2023 End: 06-14-2023 ambulatory Amanda Villafana Other [facility] Other Start: 06-14-2023 Office outpatient vi sit 15 minutes Amanda Villafana [facility] Start: 05-31-2023 End: 05-31-2023 ambulatory Amanda Villafana Other [facility] Other Start: 05-31-2023 Telephone encounter Amanda Villafana [facility] Start: 03-08-2023 End: 03-09-2023 ambulatory AUSTIN MURPHY [facility] Start: 03-08-2023 End: 03-08-2023 Patient encounter procedure AUSTIN MURPHY [facility] Start: 12-13-2022 End: 12-22-2022 Pre-admission assessment AUSTIN MURPHY [facility] Start: 12-12-2022 End: 12-12-2022 ambulatory TRESA MURPHY Facility:[facility] Start: 11-29-2022 End: 11-30-2022 ambulatory TRESA MURPHY Facility:[facility] Start: 10-13-2022 ambulatory TRESA UMRPHY Facil ity:[facility] Start: 09-14-2022 End: 09-15-2022 ambulatory TRESA MURPHY Facility:[facility] Start: 06-09-2022 End: 06-10-2022 ambulatory TRESA MURPHY Facility:[facility] Start: 05-06-2022 End: 05-26-2022 Pre-admission assessment AUSTIN MURPHY [facility] Start: 02-15-2022 End: 02-16-2022 ambulatory TRESA MURPHY Facility:[facility] Start: 02-04-2022 End: 02-04-2022 Emergency department patient visit Pete Maldonado [facility] Start: 12-31-2021 End: 12-31-2021 ambulatory TRESA MURPHY Facility:[facility] Start: 03-31-2019 End: 04-02-2019 Evaluation and management of inpatient PROVIDER UNKNOWN Facility:[facility] Procedures Date Procedure Procedure Detail Performing Clinician section Pete Maldonado section Pete Maldonado H/O: tubal ligation Pete Nunez as Plan of Treatment Date Care Activity Detail Author XR Foot - left GE 3 Views [facility] Payers Date Payer Category Payer Unknown [id number] 2.16.8 [id number] 1980 Unknown [id number] 2.16.84 [id number] 1980 Unknown [id number] 2.16.84 [id number] 1980 Unknown [id number] 2.16.84 [id number] 1980 Unknown [id number] 2.16.84 [id number] 1980 Unknown [id number] 2.16.84 [id number] 1980 Unknown [id number] 2.16.84 [id number] 1980 Unknown [id number] 2.16.84 [id number] 1980 Unknown [id number] 2.16.8 [id number] 1980 Unknown [id number] 2.16.8 [id number] 1980 Unknown [id number] 2.16.8 [id number] 1959 Unknown [id number] 1959 Unknown [id number] Unknown [facility] [id number] [facility] [id number] Social History Date Type Detail Facility Tobacco Unknown if ever smoked [facility] Comment on above: denies Sex Assigned At Female [facility] Tobacco smoking status No Smokin g Status Entered [facility] Start: 06[facility]14-2023 [facility] Start: 1980 Sex Assigned At Female [facility] Clinical Notes 11-07-2020 to 09-26-2023 Note Date & Type Note Facility 09-26-2023 Evaluation note Encounter Date Diagnosis Assessment Notes Aug, Type 2 diabetes mellitus with hyperglycemia , without long-term current use of insulin (ICD-10 - E11.65) [facility] Other 11-07-2023 Evaluation note* Encounter Date Diagnosis Assessment Notes Treatment Notes Treatment Clinical Notes Jun, Other iron deficiency anemia (ICD-10 - D50.8) [facility] Other 10-31-2023 Evaluation note* Encounter Date Diagnosis Assessment Notes Treatment Notes Treatment Clinical Notes May, Type 2 diabetes mellitus with hyperglycemia, without long-term current use of insulin (ICD-10 - E11.65) [facility] Other 10-30-2023 Evaluation note* Encounter Date Diagnosis Assessment Notes Treatment Notes Treatment Clinical Notes May, Type 2 diabetes mellitus with hyperglycemia, without long-term current use of insulin (ICD-10 - E11.65) [facility] Other 10-17-2023 Evaluation note* Encounter Date Diagnosis Assessment Notes Treatment Notes Treatment Clinical Notes May, Other iron deficiency anemia (ICD-10 - D50.8) obtain labs. recheck due to fatigue May, Type 2 diabetes mellitus with hyperglycemia, without long-term current use of insulin (ICD-10 - E11.65) Due for A1C will reach out to [facility] for [place]. Presently it is covered, but her glucose of 220 indicates dose increase. Will sent paperwork for PA again. [facility] Other 10-03-2023 Evaluation note* Encounter Date Diagnosis Assessment Notes Treatment Notes Treatment Clinical Notes May, Type 2 diabetes mellitus with hyperglycemia, without long-term current use of insulin (ICD-10 - E11.65) [facility] Other 07-11-2023 Evaluation + Plan note Diagnostic Tests Pending * T3 Free 03/08/23 [facility]06-01-2023 History general Narrative - Reported* Type Description Date Medical History DM Medical History hypothyroid Medical History Anemia Surgical History C SECTION X's 2 Surgical History Left Oophorectomy 01/2023 Hospitalization History SEE ABOVE SURGERY [facility] Other 03-12-2021 NotePatient Outreach ([facility]) APRYL DOWNS ([id number]) 1980 F Date Time Provider Department 11/07/20 [facility] During your visit today, we recorded the following information about you: Allergies As of Date: 11/07/2020 Noted Allergy Reaction OXYCODONE-ACETAMINOPHEN 09/09/2020 2 - Rash Comments: Has tolerated norco in the past Date Reviewed: 10/03/2020 Reviewed by: Bharti Lorenz (Rn) DAWNA Zavala - Fully Assessed Order(s):SARS-COVID VACCINE 1ST DOSE APPT [[id number]] Order #: [id number] FUTURE Prescriptions as of 11/07/2020 Sig: METFORMIN [...] Heart murmur [R01.1] 10/02/2020 More... Patient is [place] [Z78.9] 10/02/2020 More... Encounter Status:Closed by JEFRY PRODUSER on 11/10/20[facility] Evaluation + Plan note No data available for this section [facility] Other Evaluation note* Diagnosis Onset Date Resolution Status Iron deficiency anemia acute Left foot pain acute Type 2 diabetes mellitus with hyperglycemia acute [facility] Work Phone: Evaluation note* Diagnosis Onset Date Resolution Status Iron deficiency anemia acute Left foot pain acute Type 2 diabetes mellitus with hyperglycemia acute Type 2 diabetes mellitus with hyperglycemia acute [facility] Work Phone: Hospital Discharge instructions No data available for this section [facility] No data available for this section [facility] Summary Purpose Family History Relationship Condition Age at Onset Recorded Date/T elana father Diabetes mellitus Unknown Malignant neoplasm Unknown Unknown Malignant neoplasm of esophagus Unknown mother Diabetes mellitus Unknown Heart disease Unknown Hypertension Unknown sister Malignant neoplasm Unknown Advance Directives Advance Directive Response Recorded Date/ Time Advance Directives No November 23 024 9:35am Hospital Course Note MR#: [id number] I [facility] Pt. Name: Apryl Downs Admitted: 03/31/2019 Discharged: [...] is a 38-year-old female, who presented to [facility] with complaints of left-sided weakness and facial droop. The patient states she had driven herself to the emergency department. The patient states that she was at work when she st (more content not included)... Note HNO ID: [id number] Author: Anjali Muñoz Service: Gynecology Author Type: Physician Type: Brief Op Note Filed: 10/03/2020 8:14 AM Note Text: BRIEF OPERATIVE / PROCEDURE NOTE LOG ID: [id number] SURGERY/PROCEDURE DATE: 10/03/2020 INCISION/PROCEDURE START TIME: 7:57 AM INCISION CLOSE/PROCEDURE END TIME: 8:07 AM SURGEON(S)/PROCEDURALIST(S) AND LARRY OPERATOR(S): Surgeon(s) and Role: * Ayah Muñoz - [...] the case. Procedure Findings Note HNO ID: [id number] Author: Anjali Muñoz Service: Gynecology Author Type: Physician Type: Brief Op Note Filed: 10/03/2020 8:14 AM Note Text: BRIEF OPERATIVE / PROCEDURE NOTE LOG ID: [id number] SURGERY/PROCEDURE DATE: 10/03/2020 INCISION/PROCEDURE START TIME: 7:57 AM INCISION CLOSE/PROCEDURE END TIME: 8:07 AM SURGEON(S)/PROCEDURALIST(S) AND LARRY OPERATOR(S): Surgeon(s) and Role: * Ayah Zaidi No Additional Staff SURGERY/PROCEDURE(S): HSC'c ablation, DANDC. [...] iron deficienc y anemia (D50.8) Referral Organization [facility] Referring Provider First Name Amanda Referring Provider Last Name Khalida Referring Provider Specialty [facility] Referred Organization [facility] Referred Address [address], [place],[address] Referred Provider Specialty Hematology Referral Priority Routine Chief Complaint and Reason for Visit Chief Complaint Amb Documentation follow up Reason for Visit Iron deficiency anem ia Left foot pain Type 2 diabetes mellitus with hyperglycemia Chief Complaint follow up Discuss Diabetes Reason for Visit Iron deficiency anem ia Left foot pain Type 2 diabetes mellitus with hyperglycemia Type 2 diabetes mellitus with hyperglycemia Additional Source Comments INFORMATION SOURCE (unrecogn ized section and content) DATE CREATED AUTHOR 04/28/2019 [facility] DATE CREATED AUTHOR AUTHOR'S ORGANIZ ATION 10/07/2020 [facility] DATE CREATED AUTHOR AUTHOR'S ORGANIZ ATION 10/07/2020 [facility] DATE CREATED AUTHOR AUTHOR'S ORGANIZ ATION 10/03/2021 [facility] DATE CREATED AUTHOR AUTHOR'S ORGANIZ ATION 12/15/2022 [facility] DATE CREATED AUTHOR AUTHOR'S ORGANIZ ATION 08/25/2023 [facility] DATE CREATED AUTHOR AUTHOR'S ORGANIZ ATION 03/21/2024 [employer] (unrecognized sect ion and content) No Status Records FoundNo Status Records Found Care Team (unrecognized sect ion and content) Team Status: Active Member Role Status Dates Amanda Villafana MD Primary Care Provider Active Team Status: Inactive Member Role Status Dates Amanda Villafana MD Primary Care Provide r, Attending Provider Active Start: March 19, 2024 End: March 19, 2024 Team Status: Inactive Member Role Status Dates Amanda Villafana MD Primary Care Provide r, Attending Provider Active Start: June 14, 2024 End: June 14, 2024 Team Status: Active Member Role Status Dates [...] March 19, 2024 End: March 19, 2024 Team Status: Inactive Member Role Status Dates Amanda Villafana MD Primary Care Provide r, Attending Provider Active Start: June 14, 2024 End: June 14, 2024 REASON FOR VISIT (unrecogniz ed section and content) [id number] month Fo llow up Goals (unrecognized section [...] BE BASED ON THE PRIMARY CLINICAL RECORDS. [employer] [facility]. provides no warranty or guarantee of the accuracy or completeness of information in this document.
[2024-07-05] MEDS: KETOROLAC TROMETHAMINE 30 MG/ML VIAL 15 MG IVP (15:51)
[2024-07-05 16:13] VITALS: BP 150/78; PULSE 74; O2SAT 97
== END 2024-07-05 17:00 | disposition home or self-care (01) ==
PROVIDERS: Emergency Provider Emergency Medicine; PCP Family Medicine
DX: R51.9 Headache, unspecified (principal); Z76.0 Encounter for issue of repeat prescription; Z87.891 Personal history of nicotine dependence
CPT/HCPCS: 96365; 96375; 99284; J1200; J1885; J2765; J2919; J3475

== ENCOUNTER 2024-10-31 12:21 | Emergency (ER) | payer OTHER, SELFPAY ==
[2024-10-31 12:25] VITALS: BP 164/85; PULSE 83; TEMP 37.2; O2SAT 99; BMI 30.7
--- OUTSIDE RECORDS SUMMARY | 2024-10-31 12:37 | XMS_ITS | CCD ---
Author Organization [facility] Care Team Providers Care Salesman/Owner Name Role Phone UNKNOWN, PROVIDER Admitting Unavailable LONDON RAMIREZ Attending Unavailable UNKNOWN, PHYSICIAN Referring Unavailable UNKNOWN, PHYSICIAN Primary Care Unavailable KELLY SAENZ CNP Primary Care Physician Beverly Childers Unavailable Unavailable AICHHOLZ, YARD TRUCK DRIVER SAMANTA Primary Care Unavailable BOB ., CECI Admitting Unavailable CECI LEMON Attending Unavailable BOB ., CECI Consulting Unavailable AICHHOLZ, YARD TRUCK DRIVER SAMANTA Primary Care Unavailable TRACEY TERRY Admitting Unavailable TRACEY TERRY Attending Unavailable TRACEY TERRY Consulting Unavailable AICHHOLZ, YARD TRUCK DRIVER SAMANTA Admitting Unavailable AICHHOLZ, YARD TRUCK DRIVER SAMANTA Attending Unavailable AICHHOLZ, YARD TRUCK DRIVER SAMANTA Primary Care Unavailable AICHHOLZ, YARD TRUCK DRIVER SAMANTA Admitting Unavailable AICHHOLZ, YARD TRUCK DRIVER SAMANTA Attending Unavailable AICHHOLZ, YARD TRUCK DRIVER SAMANTA Primary Care Unavailable AICHHOLZ, YARD TRUCK DRIVER SAMANTA Consulting Unavailable DR MANJU CHAMPAGNE Consulting Unavailable AICHHOLZ, YARD TRUCK DRIVER SAMANTA Admitting Unavailable AICHHOLZ, YARD TRUCK DRIVER SAMANTA Attending Unavailable AICHHOLZ, YARD TRUCK DRIVER SAMANTA Primary Care Unavailable AICHHOLZ, YARD TRUCK DRIVER SAMANTA Consulting Unavailable AICHHOLZ, YARD TRUCK DRIVER SAMANTA Admitting Unavailable AICHHOLZ, YARD TRUCK DRIVER SAMANTA Attending Unavailable AICHHOLZ, YARD TRUCK DRIVER SAMANTA Primary Care Unavailable AICHHOLZ, YARD TRUCK DRIVER SAMANTA Consulting Unavailable AICHHOLZ, YARD TRUCK DRIVER SAMANTA Admitting Unavailable AICHHOLZ, YARD TRUCK DRIVER SAMANTA Attending Unavailable AICHHOLZ, YARD TRUCK DRIVER SAMANTA Primary Care Unavailable AICHHOLZ, YARD TRUCK DRIVER SAMANTA Consulting Unavailable AICHHOLZ, SAMANTA J Primary Care Physician Amanda Villafana Unavailable SAMANTA COTA Admitting Unavailable SAMANTA COTA Attending Unavailable NILL, Mateo R Attending Unavailable AMANDA VILLAFANA Referring Unavailable Beata CORPORATE QUALITY MANAGER, Samanta Unavailable Amanda Villafana MD Primary Care Provider EARNEST SALOMON Attending Unavailable EARNEST SALOMON Attending Unavailable Allergies Allergy Classification Reported Allergen(s) Allergy Type Date of Onset Reaction(s) Facility (2 sources) Acetaminophen / oxyCODONE Drug Allergy 9 [facility] (14 sources) Acetaminophen / oxyCODONE; Translations: [acetaminophen-ox ycodone] Drug Allergy Eruption of skin (disorder), [facility] (1 source) Acetaminophen Drug Allergy 1 [facility] Repository (3 sources) Acetaminophen Drug Allergy 4 [facility] (3 sources) oxyCODONE Drug Allergy 4 [facility] (5 sources) Acetaminophen / oxyCODONE Drug Allergy 1 [facility] Medications Current Medications Medication Drug Class(es) Dates [...] by mouth every four hours for headache APAP/butalbital/ca ffeine 325 mg-50 mg-40 mg Tab 1 tab(s), Oral, q4hr for headache, 15 tab(s), Refill(s) 0, [id number], 60, cm, 04/04/21 17:48:00 EDT, Height/Length Dosing, 94.9, kg, 04/04/21 17:48:00 EDT, Weight Dosing Start Date: 04/04/21 Status: Ordered [id number] 200 actuat albuterol 0.09 mg/actuat metered dose inhaler (4 sources) beta2-Adrenergic Agonist Start: 03-19-2024 End: 07-10-2024 take 1 puff(s) by inhalation every four to six hours as needed for wheezing Albuterol Sulfate 90 mcg/actuation HFA aerosol inhaler Active 2 PUFF INHALATION EVERY 4-6 HOURS as needed for shortness of breath or wheezing 8.5 July 10, 2024 10:46am amitriptyline hydrochloride 50 mg oral tablet (10 sources) Tricyclic Antidepressant Start: 10-04-2024 take 1 tablet by mouth once daily at bedtime Amitriptyline 50 mg tablet Active 50 MG PO Daily at bedtime October 04, 2024 12:00am Start: 02-02-2023 take 1 tablet by chiqui th at bedtime amitriptyline (Elavil) 50 MG tablet Take 50 mg by mouth at bedtime. 02/02/2023 Active Start: 02-06-2021 take 1 tablet by chiqui th once daily at bedtime Elavil 25 mg Tab 25 mg = 1 tab(s), Oral, Once a day (at bedtime), # 30 tab(s), Refills(s) 0, Pharmacy: [facility]/pharmacy #[id number], 60, cm, 02/04/21 9:34:00 EDT, Height/Length Dosing, 99.3, kg, 02/04/21 6:14:00 EDT, Weight Dosing Start Date: 02/06/21 Status: Ordered aspirin 81 mg delayed release oral tablet (4 sources) Platelet Aggregation Inhibitor, Nonsteroidal Anti-inflammatory Drug Start: 02-06-2021 take 1 tablet by mouth once daily aspirin 81 mg Oral EC Tab 81 mg = 1 tab(s), Oral, Daily, # 90 tab(s), Refills(s) 0, Pharmacy: [facility]/pharmacy #[id number], 60, cm, 02/04/21 9:34:00 EDT, Height/Length Dosing, 99.3, kg, 02/04/21 6:14:00 EDT, Weight Dosing Start Date: 02/06/21 Status: Ordered Start: 02-06-2021 take 1 tablet by chiqui th once daily aspirin 81 mg Oral EC Tab 81 mg = 1 tab(s), Oral, Daily, # 90 tab(s), Refills(s) 0, Pharmacy: [facility]/pharmacy #[id number], 60, cm, 02/04/21 9:34:00 EDT, Height/Length Dosing, 99.3, kg, 02/04/21 6:14:00 EDT, Weight Dosing Start Date: 02/06/21 Status: Ordered atorvastatin 40 mg oral tablet (4 sources) HMG-CoA Reductase Inhibitor Start: 02-06-2021 take 1 tablet by mouth once daily Lipitor 40 mg Tab 40 mg = 1 tab(s), Oral, Daily, # 90 tab(s), Refills(s) 0, Pharmacy: [facility]/pharmacy #[id number], 60, cm, 02/04/21 9:34:00 EDT, Height/Length Dosing, 99.3, kg, 02/04/21 6:14:00 EDT, Weight Dosing Start Date: 02/06/21 Status: Ordered levothyroxine sodium 0.125 mg oral tablet (20 sources) l-Thyroxine Start: 06-05-2024 levothyroxine (Synthroid, Levoxyl) 125 MCG tablet TAKE 1 TABLET DAILY, FIRST THING IN THE MORNING 2 HOURS PRIOR TO ANY OTHER FOOD/DRINK/MEDS 06/05/2024 Active Start: 03-14-2024 End: 07-10-2024 Levothyroxine 125 mcg tablet Active 0 .ROUTE .COMPLEX July 10, 2024 10:46am TAKE 1 TABLET DAILY, FIRST THING IN THE MORNING 2 HOURS PRIOR TO ANY OTHER FOOD/DRINK/MEDS Start: 03-14-2024 End: 03-14-2024 take 1 capsule by mouth once daily Levothyroxine 125 mcg capsule Discontinued 125 MCG PO Daily March 13, 2024 11:00pm March 14, 2024 1:17pm Start: 02-02-2023 take 1 tablet by chiqui th in the morning levothyroxine (Synthroid, Levoxyl) 137 MCG tablet Take 137 mcg by mouth in the morning. 02/02/2023 Active Start: 11-14-2019 take 1 tablet by chiqui th once daily Synthroid 150 mcg (0.15 mg) Tab 150 microgram = 1 tab(s), Oral, Daily, # 90 tab(s), Refills(s) 0, Pharmacy: [facility]/pharmacy #[id number], 160, cm, 04/06/19 13:58:00 EDT, Height/Length Measured, 91.2, kg, 04/06/19 13:58:00 EDT, Weight Measured Start Date: 11/14/19 Status: Ordered take 1 capsule by mo [facility] once daily in the morning Levothyroxine Sodium 125 MCG 1 capsule in the morning on an empty stomach Orally Once a day Active 24 hr metFORMIN hydrochloride 750 mg extended release oral tablet (20 sources) Biguanide Start: 03-14-2024 take 1 tablet by mouth once daily Metformin 750 mg tablet extended release 24 hr Active 0 .ROUTE .COMPLEX March 14, 2024 1:17pm TAKE 1 TABLET BY MOUTH EVERY DAY Start: 11-30-2023 End: 03-14-2024 take 1 tablet by mouth once daily Metformin 750 mg tablet extended release 24 hr Discontinued 750 MG PO Daily March 12, 2024 11:37am March 14, 2024 1:17pm FreeTextSi tablet with evening meal Orally Once a day; Note: Source Status: Taking; Provider: Khalida Middleton ( ) Start: 09-25-2020 take 500 mg by mouth once yael y metformin 500 mg, Oral, Daily, Refills(s) 0, High blood sugar Start Date: 09/25/20 Status: Ordered take 1 tablet by [facility] every twenty-four hours metFORMIN HCl ER 750 MG 1 tablet with evening meal Orally Once a day Active methylPREDNISolone 4 mg oral tablet (2 sources) Corticosteroid Start: 09-10-2024 End: 09-10-2024 take 1 tablet by mouth once methylPREDNISolone (Medrol Dospak) 4 MG tablets Indications: Acute Bursitis Take 1 tablet (4 mg) by mouth 1 (one) time for 1 dose Follow schedule on package instructions 1 each 09/10/2024 09/10/2024 Active mounjaro 7.5 mg/0.5ml solution pen-injector (2 sources) Mounjaro 7.5 MG/ 0.5ML as directed Subcutaneous weekly for 90 days Active Multi Vitamin+ (4 sources) Start: 02-04-2021 take 1 tablet by mouth once daily Multi Vitamin+ 1 tab, Oral, Daily, Refill(s) 0 Start Date: 02/04/21 Status: Ordered mupirocin 0.02 mg/mg topical ointment (3 sources) RNA Synthetase Inhibitor Antibacterial Start: 10-04-2024 Mupirocin 2 % ointment Active 1 APPLIC TOPICAL Twice daily October 04, 2024 12:01pm Start: 06-14-2024 End: 10-04-2024 Mupirocin 2 % ointment Disco ntinued 1 APPLIC TOPICAL Twice daily June 13, 2024 11:00pm October 04, 2024 12:01pm Start: 06-14-2024 Mupirocin Acti ve 1 APPLIC TOPICAL Twice daily June 14, 2024 12:00am naproxen 500 mg oral tablet (4 sources) Nonsteroidal Anti-inflammatory Drug Start: 02-01-2021 take 1 tablet by mouth twice daily Naprosyn 500 mg Tab 500 mg = 1 tab(s), Oral, BID, # 20 tab(s), Refills(s) 0 Start Date: 02/01/21 Status: Ordered ondansetron 4 mg disintegrating oral tablet (1 source) Serotonin-3 Receptor Antagonist Start: 10-04-2024 take 1 tablet by mouth every eight hours Ondansetron 4 mg tablet,disintegrat ing Active 4 MG PO Q8H October 04, 2024 12:00am Tirzepatide (9 sources) Start: 03-12-2024 Tirzepatide (Mounjaro) 7.5 mg/0.5 mL pen injector Active 0 .ROUTE .COMPLEX March 12, 2024 11:37am INJECT SUBCUTANEOUSLY DIRECTED ONCE A WEEK Start: 03-12-2024 Tirzepatide (M ounjaro) 7.5 mg/0.5 mL pen injector Active 0 .ROUTE .COMPLEX March 12, 2024 12:37pm INJECT SUBCUTANEOUSLY DIRECTED ONCE A WEEK Start: 11-30-2023 End: 03-19-2024 Tirzepatide 7.5 mg/0.5 mL pe n injector Discontinued 7.5 MG SUBCUT every week November 29, 2023 11:00pm March 19, 2024 9:59am FreeTextSig: as directed Subcutaneous weekly; Note: Source Status: Refill; Refills: 1; Provider: Khalida Borges Start: 11-30-2023 End: 03-19-2024 inject 7.5 mg by subcutaneous injection every week Tirzepatide Discontinued 7.5 MG SUBCUT every week November 30, 2023 12:00am March 19, 2024 10:59am FreeTextSig: as directed Subcutaneous weekly; Note: Source Status: Refill; Refills: 1; Provider: Khalida Borges Start: 11-21-2023 End: 03-12-2024 Tirzepatide (Mounjaro) 7.5 m g/0.5 mL pen injector Discontinued 0 .ROUTE .COMPLEX November 21, 2023 10:32am March 12, 2024 11:37am INJECT SUBCUTANEOUSLY DIRECTED ONCE A WEEK Start: 11-21-2023 End: 03-12-2024 Tirzepatide (Mounjaro) 7.5 m g/0.5 mL pen injector Discontinued 0 .ROUTE .COMPLEX November 21, 2023 11:32am March 12, 2024 12:37pm INJECT SUBCUTANEOUSLY DIRECTED ONCE A WEEK Tirzepatide (Mounjaro) 2.5 MG/0.5ML solution pen-injector (5 sources) Tirzepatide (Chiqui njaro) 2.5 MG/0.5ML solution pen-injector Inject under the skin. Active Zofran ODT 4 mg Tab-Dis (4 [...] s of breath, 1 EA, Refill(s) 0, [facility]/pharmacy #[id number] Start Date: 02/26/19 Status: Ordered lisinopril 20 mg oral tablet (20 sources) Angiotensin Converting Enzyme Inhibitor Start: 01-20-2023 End: 03-12-2024 take 1 tablet by mouth once daily Lisinopril 20 mg tablet Discontinued 1 TAB PO Daily November 29, 2023 11:00pm March 12, 2024 11:37am FreeTextSi tablet Orally Once a day; Note: Source Status: Taking; Provider: Khalida Middleton ( ) sulfamethoxazole 800 mg / trimethoprim 160 mg oral tablet (5 sources) Dihydrofolate Reductase Inhibitor Antibacterial, Sulfonamide Antimicrobial Start: 06-14-2024 End: 10-04-2024 take 1 tablet by mouth twice daily Sulfamethoxazole- Trimethoprim 800-160 mg tablet Discontinued 1 TAB PO Twice daily June 13, 2024 11:00pm October 04, 2024 11:43am take 1 tablet by mouth every twe lve hours Bactrim DS 800-160 MG 1 tablet Orally Twice a day for 5 days Active Tirzepatide (3 sources) Start: 10-11-2023 End: 11-21-2023 Tirzepatide (Mounjaro) 10 mg /0.5 mL pen injector Discontinued 10 MG SUBCUT every week 2 October 11, 2023 12:00am November 21, 2023 10:32am Start: 10-11-2023 End: 11-21-2023 Tirzepatide (Mounjaro) 10 mg /0.5 mL pen injector Discontinued 10 MG SUBCUT every week 2 October 11, 2023 1:00am November 21, 2023 11:32am Problems Active Problems Problem Classification Problem Date Documented Da te Episodic/Chronic Asthma (4 sources) Asthma 11-09-2013 Chronic Deficiency and other anemia (5 sources) Iron deficiency anemia due to blood loss; Translations: [Iron deficiency anemia secondary to blood loss (chronic)] Onset: 09-09-2020 03-11-2023 Chronic Deficiency and other anemia (11 sources) Iron deficiency anemia; Translations: [Other iron [...] 05-04-2011 11-09-2013 Chronic Disorders of lipid metabolism (13 sources) Endogenous hyperlipidemia; Translations: [Hypercholesterolem ia] Onset: 10-02-2020 01-05-2019 Chronic Essential hypertension (1 source) Essential (primary) hypertension; Translations: [ESSENTIAL PRIMARY HYPERTENSION] Onset: 09-20-2022 Chronic Genitourinary symptoms and ill-defined conditions (4 sources) Dysuria; Translations: [Dysuria] Onset: 12-12-2022 Episodic Headache; including migraine (5 sources) Migraine without aura, not refractory ; Translations: [Migraine without aura, not intractable, without status migrainosus] Onset: 12-31-2021 Chronic Malaise and fatigue (5 sources) Asthenia; Translations: [Weakness] Onset: 02-05-2022 Episodic Miscellaneous mental health disorders (4 sources) Chronic insomnia 01-05-2019 Chronic Nutritional deficiencies (4 sources) Vitamin D deficiency 01-05-2019 Chronic Other aftercare (1 source) intermission coordinator (current) use of oral hypoglycemic drugs; Translations: [SNF USE ORAL HYPOGLYCEMIC DX] Onset: 12-14-2022 Episodic Other aftercare (1 source) Other terminal press operator (current) drug therapy; Translations: [OTH TOWER ERECTOR HELPER CURRENT DRUG THERAPY] Onset: 12-14-2022 Episodic Other connective tissue disease (1 source) Neurological finding; Translations: [Other symptoms and signs involving the nervous system] Onset: 02-05-2022 Episodic Other connective tissue disease (3 sources) Foot pain; Translations: [Pain in left foot] 03-19-2024 Episodic Other connective tissue disease (2 sources) Pain in left foot; Translations: [Pain in limb] 03-19-2024 Episodic Other connective tissue disease (3 sources) Plantar fasciitis; Translations: [Plantar fascial fibromatosis] 09-10-2024 Episodic Other connective tissue disease (3 sources) Calcaneal spur of left foot; Translations: [Calcaneal spur, left foot] 09-10-2024 Episodic Other connective tissue disease (3 sources) Deformity of lower limb; Translations: [Contracture of muscle, left lower leg] 09-10-2024 Episodic Other hereditary and degenerative nervous system [...] decision for other reasons] Onset: 02-04-2022 Episodic Skin and subcutaneous tissue infections (1 source) Cellulitis of umbilicus ; Translations: [Cellulitis of umbilicus] 06-14-2024 Episodic Thyroid disorders (18 sources) Hypothyroidism; Translations: [Hypothyroidism, unspecified] Onset: 10-02-2020 11-09-2013 Chronic Transient cerebral ischemia (4 sources) Transient cerebral ischemic attack, unspecified; Translations: [TRANS CERBRAL ISCHEMIC ATTACK UNS] Onset: 02-15-2022 Chronic Unclassified (4 sources) 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 Urinary tract infections (1 source) Urinary tract infection, site not specified; Translations: [UTI SITE NOT SPECIFIED] Onset: 12-14-2022 Episodic Past or Other Problems Problem Classification Problem Date Documented Date Episodic/Chronic Diabetes or abnormal glucose tolerance complicating ; childbirth; or the puerperium (4 sources) Gestational diabetes mellitus, class A>2< Resolved: 07-28-2011 09-12-2011 Episodic E Codes: Unspecified (5 sources) Does pursue roman catholic activities; Translations: [Activity, other specified] Onset: 10-02-2020 03-11-2023 Episodic Heart valve disorders (18 sources) Heart murmur; Translations: [Systolic murmur] Onset: 10-02-2020 03-31-2019 Episodic Comment on above: new last week per pc p Other nervous system disorders (1 source) Paresthesia of skin; Translations: [PARESTHESIA OF SKIN] Onset: 02-17-2022 Episodic Other and delivery including normal (5 sources) Vaginal delivery; Translations: [Encounter for full-term uncomplicated delivery] Onset: 09-19-2020 03-11-2023 Episodic Results Test Name Value Interpretation Reference Range Facility Basophils Auto (Bld) [#/Vol] on 03-19-2024 Basophils (Bld) [#/Vol] 0.0 10 3/uL 0.0-0.1 [facility] Basophils/100 WBC Auto (Bld) on 03-19-2024 Basophils/100 WBC (Bld) 0.6 % 0.2-2.0 [facility] Eosinophils/100 WBC Auto (Bl d)on 03-19-2024 Eosinophils/100 WBC (Bld) 7.0 % 0.9-7.0 [facility] Erythrocyte distribution wid th Auto (RBC) [Ratio]on 03-19-2024 Erythrocyte distribution width (RBC) [Ratio] 13.6 % 11.0-15.0 [facility] Glucose mean value [Mass/vol ume] in Blood Estimated from glycated hemoglobinon 03-19-2024 Average glucose Estimated from glycated hemoglobin (Bld) [Mass/Vol] 123 mg/dL [facility] Hematocrit Auto (Bld) [Volum e fraction]on 03-19-2024 Hematocrit (Bld) [Volume fraction] 40.6 % 36.0-48.0 [facility] Hemoglobin [Mass/volume] in Bloodon 03-19-2024 Hemoglobin (Bld) [Mass/Vol] 13.1 g/dL 12.0-16.0 [facility] Laboratory - Chemistry and C hemistry - challengeon 03-19-2024 Ferritin [Mass/Vol] 14.0 ng/mL 8.0-252.0 [facility] Laboratory - Hematology and Cell countson 03-19-2024 HbA1c (Bld) [Mass fraction] 5.9 % 4.5-6.2 [facility] Comment on above: ADA RECOMMENDED LIMI T 4.0 - 6.0ADA THERAPEUTIC TARGET < 7.0ACTION SUGGESTED> 7.0 Immature granulocytes/100 WBC (Bld) 0.3 % 0.0-0.5 [facility] Leukocytes [#/volume] correc janel for nucleated erythrocytes in Blood by Automated counon 03-19-2024 WBC corrected for nucl RBC Auto (Bld) [#/Vol] 6.4 10 3/uL 4.0-11.0 [facility] Lymphocytes Auto (Bld) [#/Vo l]on 03-19-2024 Lymphocytes (Bld) [#/Vol] 1.3 10 3/uL 1.2-3.8 [facility] Lymphocytes/100 WBC Auto (Bl d)on 03-19-2024 Lymphocytes/100 WBC (Bld) 20.8 % 20.5-60.0 [facility] MCH Auto (RBC) [Entitic mass ]on 03-19-2024 MCH (RBC) [Entitic mass] 28.2 pg 26.7-34.0 [facility] MCHC Auto (RBC) [Mass/Vol]on 03-19-2024 MCHC (RBC) [Mass/Vol] 32.3 g/dL 29.9-35.2 [facility] MCV Auto (RBC) [Entitic vol] on 03-19-2024 MCV (RBC) [Entitic vol] 87.5 fL 81.0-99.0 [facility] Monocytes Auto (Bld) [#/Vol] on 03-19-2024 Monocytes (Bld) [#/Vol] 0.5 10 3/uL 0.3-0.8 [facility] Monocytes/100 WBC Auto (Bld) on 03-19-2024 Monocytes/100 WBC (Bld) 7.3 % 1.7-12.0 [facility] Neutrophils Auto (Bld) [#/Vo l]on 03-19-2024 Neutrophils (Bld) [#/Vol] 4.1 10 3/uL 1.4-6.5 [facility] Neutrophils/100 WBC Auto (Bl d)on 03-19-2024 Neutrophils/100 WBC (Bld) 64.0 % 43.0-75.0 [facility] No Panel Informationon 03-19 Eosinophils # (Auto) 0.5 10 3/uL 0.0-0.7 [facility] Immature Granulocyte # (Auto) 0.02 10 3/uL 0.00-0.03 [facility] Platelet mean volume Auto (B ld) [Entitic vol]on 03-19-2024 Platelet mean volume (Bld) [Entitic vol] 10.1 fL 9.5-13.5 [facility] Platelets Auto (Bld) [#/Vol] on 03-19-2024 Platelets (Bld) [#/Vol] 235 10 3/uL 150-450 [facility] RBC Auto (Bld) [#/Vol]on RBC (Bld) [#/Vol] 4.64 10 6/uL 4.20-5.40 [facility] Physician Referralon 023 Physician Referral [phone] #[id number] Normal [facility] T3 Freeon 03-09-2023 Free T3 [Mass/Vol] 2.7 pg/mL Invalid Interpretation Code 2.0-4.4 [facility] Comment on above: Result Comment: Perf ormed at: [facility] [address] [id number] PhD Toya Avendaño Performed By: #### 7 [id number], [id number], [id number] #### [facility] [address] [place] [address] CHEMISTRYOrdered By: SYSTEM SYSTEM on 03-08-2023 Albumin [...] 109 mL/min/1.73 m2 Normal >=59mL/min/1 .73 m2 FT [facility] S Globulin (S) [Mass/Vol] 3.8 g/dL [...] ratio] 20 mg/mg Normal 10 - 20 [facility] Remisol CHEMISTRYOrdered By: Mateo Thomason on 03-08-2023 HbA1c (Bld) [Mass fraction] 5.8 % Normal <=5.9% [facility] ChemAutoSS CMPon 03-08-2023 Albumin [Mass/Vol] 4.3 g/dL Normal 3.3-5.0 [facility] Comment on above: Performed By: #### 7 [id number] [id number], [id number], [id number] #### [facility] [address] [place] [address] Albumin/Globulin (S) [Mass conc ratio] 1.1 Normal 1.1-2.2 [facility] Comment on above: Performed By: #### 7 [id number], [id number], [id number], [id number], [id number] #### [facility] [address] [place] [address] ALP [Catalytic activity/Vol] 55 Int._Unit/L Normal 21-98 [facility] Comment on above: Performed By: #### 7 [id number], [id number], 5645356, [id number], [id number] #### [facility] [address] [place] [address] ALT No additional P-5'-P [Catalytic activity/Vol] 17 Int._Unit/L Normal 6-46 [facility] Comment on above: Performed By: #### 7 [id number], [id number], 8842157, [id number], [id number] #### [facility] [address] [place] [address] Anion gap [Moles/Vol] 9 mmol/L Normal 6-16 [facility] Comment on above: Performed By: #### 7 [id number], 8157962, 3353919, [id number], [id number] #### [facility] [address] [place] [address] AST [Catalytic activity/Vol] 19 Int._Unit/L Normal 5-43 [facility] Comment on above: Performed By: #### 7 [id number], 5581183, 9169220, [id number], [id number] #### [facility] [address] [place] [address] Bilirubin [Mass/Vol] 0.6 mg/dL Normal 0.0-1.1 [facility] Comment on above: Performed By: #### 7 [id number], 0993659, [id number], [id number], [id number] #### [facility] [address] [place] [address] Calcium [Mass/Vol] 9.3 mg/dL Normal 8.9-11.1 [facility] Comment on above: Performed By: #### 7 [id number], [id number], 9469074, 4773989, [id number], [id number] #### [facility] [address] [place] [address] Chloride [Moles/Vol] 108 mmol/L Normal 101-111 [facility] Comment on above: Performed By: #### 7 [id number], [id number], 1657409, 5925293, [id number], [id number] #### [facility] [address] [place] [address] CO2 [Moles/Vol] 26 mmol/L Normal 21-31 [facility] Comment on above: Performed By: #### 7 [id number], [id number], 3060348, 8176514, [id number], [id number] #### [facility] [address] [place] [address] Creatinine [Mass/Vol] 0.7 mg/dL Normal 0.5-1.3 [facility] Comment on above: Performed By: #### 7 [id number], [id number], 3920904, 7905301, [id number], [id number] #### [facility] [address] [place] [address] Globulin (S) [Mass/Vol] 3.8 g/dL Normal 1.4-4.0 [facility] Comment on above: Performed By: #### 7 [id number], 1065988, 3505454, [id number], [id number] #### [facility] [address] [place] [address] Glucose [Mass/Vol] 125 mg/dL Normal 55-199 [facility] Comment on above: Result Comment: If t his glucose result represents a fasting glucose, interpretation should refer to the following reference range: 55-99 mg/dL Performed By: #### 7 [id number], 7414079, 8262206, [id number], [id number] #### [facility] [address] [place] [address] Potassium [Moles/Vol] 4.1 mmol/L Normal 3.5-5.3 [facility] Comment on above: Performed By: #### 7 [id number], [id number], 0756424, 4653943, [id number], [id number] #### [facility] [address] [place] [address] Protein [Mass/Vol] 8.1 g/dL High 6.0-7.8 [facility] Comment on above: Performed By: #### 7 [id number], [id number], 5138577, 8644864, [id number], 9300791 #### [facility] [address] [place] [address] Sodium [Moles/Vol] 139 mmol/L Normal 135-145 [facility] Comment on above: Performed By: #### 7 [id number], 5781766, 3704006, 2483231, [id number], [id number] #### [facility] [address] [place] [address] Urea nitrogen [Mass/Vol] 14 mg/dL Normal 5-21 [facility] Comment on above: Performed By: #### 7 [id number], [id number], [id number], [id number], [id number], [id number] #### [facility] [address] [place] [address] Urea nitrogen/Creatinine [Mass ratio] 20 No Units Normal 10-20 [facility] Comment on above: Performed By: #### 7 [id number], [id number], [id number], [id number], [id number] #### [facility] [address] [place] [address] Consent for Treatmenton 02-26 Consent for Treatment [id number] #1.00CD:127 Normal [facility] Free T4on 03-08-2023 Free T4 [Mass/Vol] 1.24 ng/dL Normal 0.58-1.64 [facility] Comment on above: Performed By: #### 7 [id number], [id number], [id number], [id number], [id number], [id number] #### [facility] [address] [place] [address] [id number] 03-08-2023 HbA1c (Bld) [Mass fraction] 5.8 % Normal <=5.9 [facility] Comment on above: Performed By: #### 7 [id number], [id number], [id number], [id number], [id number], [id number] #### [facility] [address] [place] [address] Physician Orderon 03-08-2023 Physician Order [id number] #1.00CD:127 Normal [facility] TSHon 03-08-2023 TSH Qn 0.11 m[IU]/L Low 0.34-5.60 [facility] Comment on above: Performed By: #### 7 [id number], [id number], [id number], [id number], [id number], [id number] #### [facility] [address] [place] [address] eGFRon 03-08-2023 GFR/1.73 sq M.predicted among non-blacks MDRD (S/P/Bld) [Vol rate/Area] 109 mL/min/1.73 m2 Normal >=59 [facility] Comment on above: Order Comment: Order added by Discern Expert. Result Comment: Nurses Medical Assistants Phlebotomists emre kidney disease could be indicated at eGFR's of less than 60 mL/min/1.73m2. Kidney failure is indicated at less than 15 mL/min/1.73m2. Performed By: #### 7 [id number], [id number], [id number], [id number], [id number], [id number] #### [facility] [address] [place] [address] CULTURE URINEon 12-14-2022 CULTURE URINE Isolate 1 [...] F Trimethoprim/Sulfame thoxazole <=20 S F Normal [facility] Comment on above: Performed By: #### HELEN SIERRARO #### [facility] [address] [place] [address] Dr. Dandy Dobson Physician Orderon 12-13-2022 Physician Order [id number] #1.00CD:127 Normal [facility] ER URINE PROFILEon 3 Bilirubin Ql (U) Negative Normal NEGATIVE [facility] Comment on above: Performed By: #### HELEN SIERRARO #### [facility] [address] [place] [address] Dr. Dandy Dobson Clarity (U) SL CLOUDY Abnormal CLEAR [facility] Comment on above: Performed By: #### Jony HUGHES UMICRO #### [facility] [address] [place] [address] Dr. Dandy Dobson Color (U) LT. YELLOW Normal YELLOW [facility] Comment on above: Performed By: #### Jony HUGHES UMICRO #### [facility] [address] [place] [address] Dr. Dandy Dobson ERUMichel A micrscopic examination will be performed if indicated. Normal [facility] Comment on above: Performed By: #### Jony HUGHES UMICRO #### [facility] [address] [place] [address] Dr. Dandy Dobson Glucose Ql (U) Negative Normal NEGATIVE [facility] Comment on above: Performed By: #### HELEN SIERRARO #### [facility] [address] [place] [address] Dr. Dandy Dobson Hemoglobin Ql (U) SMALL Abnormal NEGATIVE [facility] Comment on above: Performed By: #### HELEN SIERRARO #### [facility] [address] [place] [address] Dr. Dandy Dobson Ketones Ql (U) Negative Normal NEGATIVE [facility] Comment on above: Performed By: #### HELEN SIERRARO #### [facility] [address] [place] [address] Dr. Dandy Dobson LEUKOCYTES SMALL Abnormal NEGATIVE [facility] Comment on above: Performed By: #### HELEN SIERRARO #### [facility] [address] [place] [address] Dr. Dandy Dobson Nitrite Ql (U) Negative Normal NEGATIVE [facility] Comment on above: Performed By: #### HELEN SIERRARO #### [facility] [address] [place] [address] Dr. Dandy Dobson pH (U) 6.0 [pH] Normal 5-9 [facility] Comment on above: Performed By: #### HELEN SIERRARO #### [facility] [address] [place] [address] Dr. Dandy Dobson Protein (U) [Mass/Vol] 30 mg/dL Abnormal NEGAT JACKELYN/ TRACE [facility] Comment on above: Performed By: #### HELEN SIERRARO #### [facility] [address] [place] [address] Dr. Dandy Dobson SPEC GRAVITY >=1.030 Abnormal 1.005-<=1.02 5 [facility] Comment on above: Performed By: #### HELEN SIERRARO #### [facility] [address] [place] [address] Dr. Dandy Dobson UR MICRO IND INDICATED Normal [facility] Comment on above: Performed By: #### VERONICA SIERRA #### [facility] [address] [place], [place] [id number] Dr. Dandy Dobson Urobilinogen Qn (U) 1.0 {Sarahi'U}/dL Normal 0.2 - 1. 0 [facility] Comment on above: Performed By: #### Jony HUGHES UMICRO #### [facility] [address] [place] [address] Dr. Dandy Dobson URon 12-12-2022 , QUAL Negative Normal NEGATIVE [facility] Comment on above: Performed By: #### P REGU #### [facility] [address] [place] [address] Dr. Dandy Dobson URINE MICROSCOPIC ONLYon BACTERIA SMALL Abnormal NONE SEEN [facility] Comment on above: Performed By: #### Jony HUGHES UMICRO #### [facility] [address] [place] [address] Dr. Dandy Dobson Bacteria identified Cx Nom (U) INDICATED Normal [facility] Comment on above: Performed By: #### Jony HUGHES UMICRO #### [facility] [address] [place] [address] Dr. Dandy Dobson CAST NONE SEEN Normal NONE SEEN [facility] Comment on above: Performed By: #### Jony HUGHES UMICRO #### [facility] [address] [place] [address] Dr. Dandy Dobson Crystals LM Nom (Urine sed) NONE SEEN Normal NONE SEEN [facility] Comment on above: Performed By: #### Jony HUGHES UMICRO #### [facility] [address] [place] [address] Dr. Dandy Dobson Epithelial cells LM Ql (Urine sed) MODERATE Abnormal NONE SEEN /RARE [facility] Comment on above: Performed By: #### Jony HUGHES UMICRO #### [facility] [address] [place] [address] Dr. Dandy Dobson MUCOUS NONE SEEN Normal NONE SEEN [facility] Comment on above: Performed By: #### Jony HUGHES UMICRO #### [facility] [address] [place] [address] Dr. Dandy Dobson RBC 10-20 Abnormal 0-2 [facility] Comment on above: Performed By: #### HELEN SIERRARO #### [facility] [address] [place] [address] Dr. Dandy Dobson WBC (U) [#/Vol] /uL Abnormal NONE SEEN [facility] Comment on above: Performed By: #### HELEN SIERRARO #### [facility] [address] [place] [address] Dr. Dandy Dobson FREE T4on 11-29-2022 Free T4 [Mass/Vol] 1.10 ng/dL Normal 0.76-1.46 [facility] Comment on above: Performed By: #### VERONICA SIERRA #### [facility] [address] [place] [address] Dr. Dandy Dobson TSHon 11-29-2022 TSH 0.204 uIU/mL Critically low 0.358-3.740 [facility] Comment on above: Performed By: #### HELEN SIERRARO #### [facility] [address] [place] [address] Dr. Dandy Dobson CBC AUTO DIFFon 09-14-2022 BASO # 0.0 103/ul Normal 0.0-0.1 [facility] Comment on above: Performed By: #### C BC #### [facility] [address] [place] [address] Dr. Dandy Dobson Basophils/100 WBC (Bld) 0.4 % Normal 0.2-2.0 [facility] Comment on above: Performed By: #### C BC #### [facility] [address] [place] [address] Dr. Dandy Dobson EO # 0.1 103/ul Normal 0.0-0.7 [facility] Comment on above: Performed By: #### C BC #### [facility] [address] [place] [address] Dr. Dandy Dobson Eosinophils/100 WBC (Bld) 2.1 % Normal 0.9-7.0 [facility] Comment on above: Performed By: #### C BC #### [facility] [address] [place] [address] Dr. Dandy Dobson Erythrocyte distribution width (RBC) [Ratio] 13.7 % Normal 11.0-15.0 [facility] Comment on above: Performed By: #### C BC #### [facility] [address] [place] [address] Dr. Dandy Dobson Hematocrit (Bld) [Volume fraction] 38.7 % Normal 36.0-48.0 [facility] Comment on above: Performed By: #### C BC #### [facility] [address] [place] [address] Dr. Dandy Dobson Hemoglobin (Bld) [Mass/Vol] 12.6 g/dL Normal 12.0-16.0 [facility] Comment on above: Performed By: #### C BC #### [facility] [address] [place] [address] Dr. Dandy Dobson IG # 0.01 10e3/ul Normal 0.00-0.03 [facility] Comment on above: Performed By: #### C BC #### [facility] [address] [place] [address] Dr. Dandy Dobson IG % 0.2 % Normal 0.0-0.5 [facility] Comment on above: Performed By: #### C BC #### [facility] [address] [place] [address] Dr. Dandy Dobson LYMPH # 1.6 103/ul Normal 1.2-3.8 [facility] Comment on above: Performed By: #### C BC #### [facility] [address] [place] [address] Dr. Dandy Dobson Lymphocytes/100 WBC (Bld) 27.5 % Normal 20.5-60.0 [facility] Comment on above: Performed By: #### C BC #### [facility] [address] [place] [address] Dr. Dandy Dobson MANUAL DIFF REQ NO Normal [facility] Comment on above: Performed By: #### C BC #### [facility] [address] [place] [address] Dr. Dandy Dobson MCH (RBC) [Entitic mass] 27.1 pg Normal 26.7-34.0 [facility] Comment on above: Performed By: #### C BC #### [facility] [address] [place] [address] Dr. Dandy Dobson MCHC (RBC) [Mass/Vol] 32.6 g/dL Normal 29.9-35.2 [facility] Comment on above: Performed By: #### C BC #### [facility] [address] [place] [address] Dr. Dandy Dobson MCV (RBC) [Entitic vol] 83.2 fL Normal 81.0-99.0 [facility] Comment on above: Performed By: #### C BC #### [facility] [address] [place] [address] Dr. Dandy Dobson MONO # 0.6 103/ul Normal 0.3-0.8 [facility] Comment on above: Performed By: #### C BC #### [facility] [address] [place] [address] Dr. Dandy Dobson Monocytes/100 WBC (Bld) 9.9 % Normal 1.7-12.0 [facility] Comment on above: Performed By: #### C BC #### [facility] [address] [place] [address] Dr. aDndy Dobson NEUT # 3.4 103/ul Normal 1.4-6.5 [facility] Comment on above: Performed By: #### C BC #### [facility] [address] [place] [address] Dr. Dandy Dobson Neutrophils/100 WBC (Bld) 59.9 % Normal 43.0-75.0 [facility] Comment on above: Performed By: #### C BC #### [facility] [address] [place] [address] Dr. Dandy Dobson Platelet mean volume (Bld) [Entitic vol] 9.7 fL Normal 9.5-13.5 [facility] Comment on above: Performed By: #### C BC #### [facility] [address] [address] [address] Dandy Dobson PLT 230 103/ul Normal 150-450 [facility] Comment on above: Performed By: #### C BC #### [facility] [address] [place] [address] Dr. Dandy Dobson RBC 4.65 106/ul Normal 4.20-5.40 [facility] Comment on above: Performed By: #### C BC #### [facility] [address] [place] [address] Dr. Dandy Dboson WBC 5.6 103/ul Normal 4.0-11.0 [facility] Comment on above: Performed By: #### C BC #### [facility] [address] [place] [address] Dr. Dandy Dobson FERRITINon 09-14-2022 Ferritin [Mass/Vol] 52.0 ng/mL Normal 6.2-137.0 [facility] Comment on above: Performed By: #### V ITB12, IRON, FT4, FERR #### [facility] [address] [place] [address] Dr. Dandy Dobson FREE T4on 09-14-2022 Free T4 [Mass/Vol] 1.69 ng/dL Critically high 0.76-1.46 [facility] Comment on above: Performed By: #### V ITB12, IRON, FT4, FERR #### [facility] [address] [place] [address] Dr. Dandy Dobson GLYCOHEMOGLOBIN A1Con 2022 ADA RECOMMENDATION SEE BELOW Normal [facility] Comment on above: Result Comment: ADA RECOMMENDED LIMIT 4.0 - 6.0 ADA THERAPEUTIC TARGET < 7.0 ACTION SUGGESTED > 7.0 Performed By: #### VERONICA SIERRA #### [facility] [address] [place] [address] Dr. Dandy Dobson Glucose [Mass/Vol] 134 mg/dL Normal [facility] Comment on above: Performed By: #### HELEN SIERRARO #### [facility] [address] [place] [address] Dr. Dandy Dobson HbA1c (Bld) [Mass fraction] 6.3 % Critically high 4.5-6.2 [facility] Comment on above: Performed By: #### ADAMA SIERRAICRO #### [facility] [address] [place] [address] Dr. Dandy Dobson IRONon 09-14-2022 Iron [Mass/Vol] 42.0 ug/dL Critically low 50.0-170.0 [facility] Comment on above: Performed By: #### V ITB12, IRON, FT4, FERR #### [facility] [address] [address] [address] Dandy Dobson PROF 14(COMP METB)on 023 Albumin [Mass/Vol] 3.8 g/dL Normal 3.4-5.0 [facility] Comment on above: Performed By: #### Jony HUGHES UMICRO #### [facility] [address] [place] [address] Dr. Dandy Dobson Albumin/Globulin [Mass ratio] 1.0 {ratio} Normal [facility] Comment on above: Performed By: #### Jony HUGHES UMICRO #### [facility] [address] [place] [address] Dr. Dandy Dobson ALP [Catalytic activity/Vol] 66 U/L Normal 46-116 [facility] Comment on above: Performed By: #### Jony HUGHES UMICRO #### [facility] [address] [place] [address] Dr. Dandy Dobson ALT [Catalytic activity/Vol] 20 U/L Normal 14-59 [facility] Comment on above: Performed By: #### Jony HUGHES UMICRO #### [facility] [address] [place] [address] Dr. Dandy Dobson Anion gap [Moles/Vol] 11.3 mmol/L Normal [facility] Comment on above: Performed By: #### Jony HUGHES UMICRO #### [facility] [address] [place] [address] Dr. Dandy Dobson AST [Catalytic activity/Vol] 16 U/L Normal 15-37 [facility] Comment on above: Performed By: #### HELEN SIERRARO #### [facility] [address] [place] [address] Dr. Dandy Dobson Bilirubin [Mass/Vol] 0.3 mg/dL Normal 0.2-1.0 [facility] Comment on above: Performed By: #### HELEN SIERRARO #### [facility] [address] [place] [address] Dr. Dandy Dobson Calcium [Mass/Vol] 9.0 mg/dL Normal 8.5-10.1 [facility] Comment on above: Performed By: #### HELEN SIERRARO #### [facility] [address] [place] [address] Dr. Dandy Dobson Chloride [Moles/Vol] 103 mmol/L Normal 98-107 [facility] Comment on above: Performed By: #### HELEN SIERRARO #### [facility] [address] [place] [address] Dr. Dandy Dobson CO2 [Moles/Vol] 28.2 mmol/L Normal 21.0-32.0 [facility] Comment on above: Performed By: #### VERONICA SIERRA #### [facility] [address] [place] [address] Dr. Dandy Dobson Creatinine [Mass/Vol] 0.57 mg/dL Normal 0.55-1.02 [facility] Comment on above: Performed By: #### VERONICA SIERRA #### [facility] [address] [place] [address] Dr. Dandy Dobson EGFR-AF BAHAMIAN >60 Normal >=60 [facility] Comment on above: Performed By: #### HELEN SIERRARO #### [facility] [address] [place] [address] Dr. Dandy Dobson EGFR-NON AF BAHAMIAN >60 Normal >=60 [facility] Comment on above: Performed By: #### VERONICA SIERRA #### [facility] [address] [place] [address] Dr. Dandy Dobson Globulin (S) [Mass/Vol] 3.7 g/dL Normal [facility] Comment on above: Performed By: #### HELEN SIERRARO #### [facility] [address] [place] [address] Dr. Dandy Dobson Glucose [Mass/Vol] 107 mg/dL Critically high 74-106 [facility] Comment on above: Performed By: #### HELEN SIERRARO #### [facility] [address] [place] [address] Dr. Dandy Dobson Potassium [Moles/Vol] 3.5 mmol/L Normal 3.5-5.1 [facility] Comment on above: Performed By: #### HELEN SIERRARO #### [facility] [address] [place] [address] Dr. Dandy Dobson Protein [Mass/Vol] 7.5 g/dL Normal 6.4-8.2 [facility] Comment on above: Performed By: #### HELEN SIERRARO #### [facility] [address] [place] [address] Dr. Dandy Dobson Sodium [Moles/Vol] 139 mmol/L Normal 136-145 [facility] Comment on above: Performed By: #### HELEN SIERRARO #### [facility] [address] [place] [address] Dr. Dandy Dobson Urea nitrogen [Mass/Vol] 12.0 mg/dL Normal 7.0-18.0 [facility] Comment on above: Performed By: #### HELEN SIERRARO #### [facility] [address] [place] [address] Dr. Dandy Dobson Urea nitrogen/Creatinine [Mass ratio] 21.1 mg/mg Normal [facility] Comment on above: Performed By: #### HELEN SIERRARO #### [facility] [address] [place] [address] Dr. Dandy Dobson TSHon 09-14-2022 TSH 0.015 uIU/mL Critically low 0.358-3.740 [facility] Comment on above: Performed By: #### HELEN SIERRARO #### [facility] [address] [place] [address] Dr. Dandy Dobson VITAMIN B12on 09-14-2022 Cobalamin (Vitamin B12) [Mass/Vol] 485.0 pg/mL Normal 193.0-986.0 [facility] Comment on above: Performed By: #### V ITB12, IRON, FT4, FERR #### [facility] [address] [place] [address] Dr. Dandy Dobson GLYCOHEMOGLOBIN A1Con 2021 ADA RECOMMENDATION SEE BELOW Normal [facility] Comment on above: Result Comment: ADA RECOMMENDED LIMIT 4.0 - 6.0 ADA THERAPEUTIC TARGET < 7.0 ACTION SUGGESTED > 7.0 Performed By: #### A 1C #### [facility] [address] [place] [address] Dr. Dandy Dobson Glucose [Mass/Vol] 143 mg/dL Normal [facility] Comment on above: Performed By: #### A 1C #### [facility] [address] [place] [address] Dr. Dandy Dobson HbA1c (Bld) [Mass fraction] 6.6 % Critically high 4.5-6.2 [facility] Comment on above: Performed By: #### A 1C #### [facility] [address] [place] [address] Dr. Dandy Dobson LIPID PROFILEon 06-09-2022 CHOL-HDL RATIO NORM SEE BELOW Normal [facility] Comment on above: Result Comment: 3.3 - 4.4 LOW RISK 4.4 - 7.1 AVERAGE RISK 7.1 - 11.0 MODERATE RISK >11.0 HIGH RISK Performed By: #### HELEN SIERRARO #### [facility] [address] [place] [address] Dr. Dandy Dobson Cholesterol [Mass/Vol] 138 mg/dL Normal <=200 [facility] Comment on above: Performed By: #### HELEN SIERRARO #### [facility] [address] [place] [address] Dr. Dandy Dobson Cholesterol in HDL [Mass/Vol] 46 mg/dL Normal 40-60 [facility] Comment on above: Performed By: #### HELEN SIERRARO #### [facility] [address] [place] [address] Dr. Dandy Dobson Cholesterol in LDL [Mass/Vol] 62.4 mg/dL Normal [facility] Comment on above: Performed By: #### HELEN SIERRARO #### [facility] [address] [place] [address] Dr. Dandy Dobson Cholesterol.total/Chol esterol in HDL [Mass ratio] 3.0 {ratio} Normal [facility] Comment on above: Performed By: #### HELEN SIERRARO #### [facility] [address] [place] [address] Dr. Dandy Dobson HDL NORMAL > or = 60 mg/dl - LOW CARDIOVASCULAR RISK <40 mg/dl - HIGH CARDIOVASCULAR RISK Normal [facility] Comment on above: Performed By: #### HELEN SIERRARO #### [facility] [address] [place] [address] Dr. Dandy Dobson LDL CALC NORMAL SEE BELOW Normal [facility] Comment on above: Result Comment: <100 mg/dl OPTIMAL 100 - 129 mg/dl NEAR OR ABOVE OPTIMAL 130 - 159 mg/dl BORDERLINE HIGH 160 - 189 mg/dl HIGH >190 mg/dl VERY HIGH Performed By: #### ADAMA SIERRAICRO #### [facility] [address] [place] [address] Dr. Dandy Dobson Triglyceride [Mass/Vol] 148 mg/dL Normal <=150 [facility] Comment on above: Performed By: #### ADAMA SIERRAICRO #### [facility] [address] [place] [address] Dr. Dandy Dobson VLDL CALC 29.6 mg/dL Normal [facility] Comment on above: Performed By: #### HELEN SIERRARO #### [facility] [address] [place] [address] Dr. Dandy Dobson PROF CHEM 8 (BAS METB)on Anion gap [Moles/Vol] 9.4 mmol/L Normal [facility] Comment on above: Performed By: #### VERONICA SIERRA #### [facility] [address] [place] [address] Dr. Dandy Dobson Calcium [Mass/Vol] 8.7 mg/dL Normal 8.5-10.1 [facility] Comment on above: Performed By: #### VERONICA SIERRA #### [facility] [address] [place] [address] Dr. Dandy Dobson Chloride [Moles/Vol] 104 mmol/L Normal 98-107 [facility] Comment on above: Performed By: #### VERONICA SIERRA #### [facility] [address] [place] [address] Dr. Dandy Dobson CO2 [Moles/Vol] 28.8 mmol/L Normal 21.0-32.0 [facility] Comment on above: Performed By: #### VERONICA SIERRA #### [facility] Laboratory [address] [place] [address] Dr. Dandy Dobson Creatinine [Mass/Vol] 0.67 mg/dL Normal 0.55-1.02 [facility] Comment on above: Performed By: #### VERONICA SIERRA #### [facility] [address] [place] [address] Dr. Dandy Dobson EGFR-AF BAHAMIAN >60 Normal >=60 [facility] Comment on above: Performed By: #### VERONICA SIERRA #### [facility] [address] [place] [address] Dr. Dandy Dobson EGFR-NON AF BAHAMIAN >60 Normal >=60 [facility] Comment on above: Performed By: #### VERONICA SIERRA #### [facility] [address] [place] [address] Dr. Dandy Dobson Glucose [Mass/Vol] 120 mg/dL Critically high 74-106 T [facility] Comment on above: Performed By: #### VERONICA SIERRA #### [facility] [address] [place] [address] Dr. Dandy Dobson Potassium [Moles/Vol] 4.2 mmol/L Normal 3.5-5.1 [facility] Comment on above: Performed By: #### HELEN SIERRARO #### [facility] [address] [address] [address] Dandy Dobson Sodium [Moles/Vol] 138 mmol/L Normal 136-145 [facility] Comment on above: Performed By: #### Jony HUGHES, HELENRO #### [facility] [address] [address] [address] Dandy Dobson Urea nitrogen [Mass/Vol] 17.0 mg/dL Normal 7.0-18.0 [facility] Comment on above: Performed By: #### Jony HUGHES, HELENRO #### [facility] [address] [address] [address] Dandy Dobson Urea nitrogen/Creatinine [Mass ratio] 25.4 mg/mg Normal [facility] Comment on above: Performed By: #### Jony HUGHES, HELENRO #### [facility] [address] [place] [address] Dr. Dandy Dobson MRI BRAIN WO CONon [...] MANJU CHAMPAGNE Date: 2022-02-15 16:53 Normal [facility] CHEMISTRYOrdered By: SYSTEM SYSTEM on 02-04-2022 Troponin I.cardiac [Mass/Vol] 4.40 pg/mL Low 10.10 - 27.10 pg/mL FT Remisol Anion gap [Moles/Vol] 12 mmol/L Normal 6 - 16 mEq/L [facility] [place] Calcium [Mass/Vol] 8.8 mg/dL Low 8.9 - 11. 1 mg/dL [facility] Chloride [Moles/Vol] 102 mmol/L Normal 101 - 1 11 mmol/L FT [facility] CO2 [Moles/Vol] 24 mmol/L Normal 21 - 31 mmol/L [facility] Creatinine [Mass/Vol] 0.6 mg/dL Normal 0.5 - 1.3 mg/dL FT [facility] GFR/1.73 sq M.predicted among blacks MDRD (S/P/Bld) [Vol rate/Area] mL/min/1.73 m2 Normal >=59mL/min/1 .73 m2 [facility] Chem S GFR/1.73 sq M.predicted among non-blacks MDRD (S/P/Bld) [Vol rate/Area] mL/min/1.73 m2 Normal >=59mL/min/1 .73 m2 [facility] Chem S Glucose [Mass/Vol] 150 mg/dL Normal 55 - 199 mg/dL [facility] Lipase [Catalytic activity/Vol] 38 U/L Normal 13 - 58 unit/L FT [facility] Magnesium [Mass/Vol] 1.9 mg/dL Normal 1.3 - 2 .4 mg/dL [facility] Potassium [Moles/Vol] 3.1 mmol/L Low 3.5 - 5.3 mmol/L [facility] Sodium [Moles/Vol] 135 mmol/L Normal 135 - 145 mmol/L FT [facility] Troponin I.cardiac [Mass/Vol] 4.10 pg/mL Low 10.10 - 27.10 pg/mL [facility] Remisol Urea nitrogen [Mass/Vol] 10 mg/dL Normal 5 - 21 mg/dL [facility] Remisol Urea nitrogen/Creatinine [Mass ratio] 17 mg/mg Normal 10 - 20 [facility] Remisol CHEMISTRYOrdered By: Ciara quintana on 02-04-2022 Natriuretic peptide B (Bld) [Mass/Vol] 33 pg/mL Normal 5 - 80 pg/mL [facility] HemeManSS CHEMISTRYOrdered By: Lab ROP User on 02-04-2022 Glucose [Mass/Vol] 144 mg/dL High 55 - 99 mg/dL [facility] POC Subsection POC Device SN [id number] Invalid Interpretation Code [facility] POC Subsection POC User ID [id number] Invalid Interpretation Code [facility] POC Subsection POC Username [email or web address] Invalid Interpretation Code [facility] POC Subsection COAGULATIONOrdered By: Christina Colindres on 02-04-2022 aPTT Coag (PPP) [Time] 32.0 s Normal 25.1 - 36.5 second(s) [facility] Auto Coag INR Coag (PPP) [Relative time] 1.0 {INR} Invalid Interpretation Code [facility] Auto Coag PT Coag (PPP) [Time] 11.6 s Normal 10.2 - 12.9 second(s) [facility] Auto Coag HEMATOLOGYOrdered By: SYSTEM SYSTEM on [...] (U) Clear (02/04/22 7:21 PM) Normal Clear [facility] UA Auto SS Color (U) Straw *ABN* (02/04/22 7:21 PM) Invalid Interpretation Code Yellow [facility] UA Auto SS Epithelial cells.squamous LM.HPF (Urine sed) [#/Area] 0-2 /HPF Normal 0-2/HPF [facility] Aut o SS Glucose Test strip (U) [Mass/Vol] Negative (02/04/22 7:21 PM) Normal Negative [facility] UA Auto SS Hemoglobin Ql (U) Negative (02/04/22 7:21 PM) Normal Negative [facility] UA Auto SS Ketones (U) [Mass/Vol] Negative (02/04/22 7:21 PM) Normal Negative [facility] UA Auto SS Gateway.plasma/Gateway .RBC (Bld) [Mass ratio] 0-3 /HPF Normal 0-3/HPF [facility] Auto SS Nitrite Ql (U) Negative (02/04/22 7:21 PM) Normal Negative [facility] Auto SS pH (U) 7.0 *NA* (02/04/22 7:21 PM) Invalid Interpretation Code 5.0 - 9.0 [facility] Auto SS Protein (U) [Mass/Vol] Negative (02/04/22 7:21 PM) Normal Negative [facility] UA Auto SS Specific gravity (U) [Rel density] 1.010 *NA* (02/04/22 7:21 PM) Invalid Interpretation Code 1.005 - 1.030 [facility] UA Auto SS UA Spec Desc Random Urine (02/04/22 7:21 PM) Normal [facility] UA Auto SS Urobilinogen Qn (U) [id number] {Sarahi'U}/dL Normal 0.0 - 1.0 EU/dL [facility] UA Auto SS WBC Auto Ql (U) Negative (02/04/22 7:21 PM) Normal Negative [facility] UA Auto SS WBC LM.HPF (Urine sed) [#/Area] 0-5 /HPF Normal 0-5/HPF [facility]A Auto SS CBC AUTO DIFFon 12-31-2021 BASO # 0.0 103/ul Normal 0.0-0.1 [facility] Comment on above: Performed By: #### C BC #### [facility] [address] [place] [address] Dr. Dandy Dobson Basophils/100 WBC (Bld) 0.2 % Normal 0.2-2.0 [facility] Comment on above: Performed By: #### C BC #### [facility] [address] [place] [address] Dr. Dandy Dobson EO # 0.0 103/ul Normal 0.0-0.7 [facility] Comment on above: Performed By: #### C BC #### [facility] [address] [place] [address] Dr. Dandy Dobson Eosinophils/100 WBC (Bld) 0.1 % Critically low 0.9-7.0 [facility] Comment on above: Performed By: #### C BC #### [facility] [address] [place] [address] Dr. Dandy Dobson Erythrocyte distribution width (RBC) [Ratio] 13.9 % Normal 11.0-15.0 [facility] Comment on above: Performed By: #### C BC #### [facility] [address] [place] [address] Dr. Dandy Dobson Hematocrit (Bld) [Volume fraction] 42.7 % Normal 36.0-48.0 [facility] Comment on above: Performed By: #### C BC #### [facility] [address] [place] [address] Dr. Dandy Dobson Hemoglobin (Bld) [Mass/Vol] 13.9 g/dL Normal 12.0-16.0 [facility] Comment on above: Performed By: #### C BC #### [facility] [address] [place] [address] Dr. Dandy Dobson IG # 0.03 10e3/ul Normal 0.00-0.03 [facility] Comment on above: Performed By: #### C BC #### [facility] [address] [place] [address] Dr. Dandy Dobson IG % 0.3 % Normal 0.0-0.5 [facility] Comment on above: Performed By: #### C BC #### [facility] [address] [place] [address] Dr. Dandy Dobson LYMPH # 1.2 103/ul Normal 1.2-3.8 [facility] Comment on above: Performed By: #### C BC #### [facility] [address] [place] [address] Dr. Dandy Dobson Lymphocytes/100 WBC (Bld) 13.5 % Critically low 20.5-60.0 [facility] Comment on above: Performed By: #### C BC #### [facility] [address] [place] [address] Dr. Dandy Dobson MANUAL DIFF REQ NO Normal [facility] Comment on above: Performed By: #### C BC #### [facility] [address] [place] [address] Dr. Dandy Dobson MCH (RBC) [Entitic mass] 27.4 pg Normal 26.7-34.0 [facility] Comment on above: Performed By: #### C BC #### [facility] [address] [place] [address] Dr. Dandy Dobson MCHC (RBC) [Mass/Vol] 32.6 g/dL Normal 29.9-35.2 [facility] Comment on above: Performed By: #### C BC #### [facility] [address] [place] [address] Dr. Dandy Dobson MCV (RBC) [Entitic vol] 84.2 fL Normal 81.0-99.0 [facility] Comment on above: Performed By: #### C BC #### [facility] [address] [place] [address] Dr. Dandy Dobson MONO # 0.4 103/ul Normal 0.3-0.8 [facility] Comment on above: Performed By: #### C BC #### [facility] [address] [place] [address] Dr. Dandy Dobson Monocytes/100 WBC (Bld) 5.0 % Normal 1.7-12.0 [facility] Comment on above: Performed By: #### C BC #### [facility] [address] [place] [address] Dr. Dandy Dobson NEUT # 7.1 103/ul Critically high 1.4-6.5 [facility] Comment on above: Performed By: #### C BC #### [facility] [address] [place] [address] Dr. Dandy Dobson Neutrophils/100 WBC (Bld) 80.9 % Critically high 43.0-75.0 [facility] Comment on above: Performed By: #### C BC #### [facility] [address] [place] [address] Dr. Dandy Dobson Platelet mean volume (Bld) [Entitic vol] 10.4 fL Normal 9.5-13.5 [facility] Comment on above: Performed By: #### C BC #### [facility] [address] [place] [address] Dr. Dandy Dobson PLT 256 103/ul Normal 150-450 [facility] Comment on above: Performed By: #### C BC #### [facility] [address] [place] [address] Dr. Dandy Dobson RBC 5.07 106/ul Normal 4.20-5.40 [facility] Comment on above: Performed By: #### C BC #### [facility] [address] [place] [address] Dr. Dandy Dobson WBC 8.8 103/ul Normal 4.0-11.0 [facility] Comment on above: Performed By: #### C BC #### [facility] [address] [place] [address] Dr. Dandy Dobson PROF CHEM 8 (BAS METB)on Anion gap [Moles/Vol] 11.2 mmol/L Normal [facility] Comment on above: Performed By: #### HELEN SIERRARO #### [facility] [address] [place] [address] Dr. Dandy Dobson Calcium [Mass/Vol] 8.2 mg/dL Critically low 8.5-10.1 [facility] Comment on above: Performed By: #### HELEN SIERRARO #### [facility] [address] [place] [address] Dr. Dandy Dobson Chloride [Moles/Vol] 100 mmol/L Normal 98-107 [facility] Comment on above: Performed By: #### VERONICA SIERRA #### [facility] [address] [address] [address] Dandy Dobson CO2 [Moles/Vol] 25.5 mmol/L Normal 21.0-32.0 [facility] Comment on above: Performed By: #### VERONICA SIERRA #### [facility] [address] [place] [address] Dr. Dandy Dobson Creatinine [Mass/Vol] 0.72 mg/dL Normal 0.55-1.02 [facility] Comment on above: Performed By: #### VERONICA SIERRA #### [facility] [address] [place] [address] Dr. Dandy Dobson EGFR-AF BAHAMIAN >60 Normal >=60 [facility] Comment on above: Performed By: #### VERONICA SIERRA #### [facility] [address] [place] [address] Dr. Dandy Dobson EGFR-NON AF BAHAMIAN >60 Normal >=60 [facility] Comment on above: Performed By: #### VERONICA SIERRA #### [facility] [address] [place] [address] Dr. Dandy Dobson Glucose [Mass/Vol] 201 mg/dL Critically high 74-106 [facility] Comment on above: Performed By: #### VERONICA SIERRA #### [facility] [address] [place] [address] Dr. Dandy Dobson Potassium [Moles/Vol] 3.7 mmol/L Normal 3.5-5.1 [facility] Comment on above: Performed By: #### VERONICA SIERRA #### [facility] [address] [place] [address] Dr. Dandy Dobson Sodium [Moles/Vol] 133 mmol/L Critically low 136-145 [facility] Comment on above: Performed By: #### VERONICA SIERRA #### [facility] [address] [place], [place] [address] Dr. Dandy Dobson Urea nitrogen [Mass/Vol] 9.0 mg/dL Normal 7.0-18.0 [facility] Comment on above: Performed By: #### Jony HUGHES, VERONICA #### [facility] [address] [place], [place] [address] Dr. Dandy Dobson Urea nitrogen/Creatinine [Mass ratio] 12.5 mg/mg Normal [facility] Comment on above: Performed By: #### Jony HUGHES, HELENRO #### [facility] [address] [place], [place] [address] Dr. Dandy Rausch 01-22-2021 CNPN Telephone ([facility]) APRYL DOWNS ([id number]) 1980 F Date Time Provider Department 01/22/21 [...] Date Reviewed: 01/22/2021 Reviewed by: Job Weber APRN.YARD TRUCK DRIVER - Fully Assessed Reason for Visit: Future [...] 10/02/2020 Heart murmur [R01.1] 10/02/2020 Patient is Quaker [Z78.9] 10/02/2020 Encounter Status:Closed by CARLA SANTIAGO on 01/22/21 [facility] APRYL DOWNS ([id number]) 1980 F Date Time Provider Department 10/28/20 AYAH MUÑOZ [facility] During your visit today, we recorded the following information about you: Kya Wyatt 10/28/2020 9:19 AM Signed Patient had surgery on 2/5. States she has not stopped bleeding since 10/18. Says it is a moderate bleed. Marjorie Nobles RN 10/28/2020 9:53 AM Signed I called the patient and there was no answer. VM is full and cannot leave a message. Marjorie Nobles RN Tishaelva Blake Pss 10/28/2020 2:40 PM Signed Patient is returning [...] she verbalizes understanding. She will go to [facility] for CBC. She will call the office with any change in symptoms or any further questions or concerns. Marjorie Nobles RN Allergies As of Date: 10/28/2020 Noted Allergy Reaction OXYCODONE-ACETAMINOP HEN 09/09/2020 2 - Rash Comments: Has tolerated norco in the past Date Reviewed: 10/03/2020 Reviewed by: Bharti Lorenz (Rn) CARMELITA Zavala - Fully Assessed Reason for Visit: Surgical Followup [104] Vaginal Bleeding [203] Primary Visit Diagnosis:Excessive bleeding in premenopausal period [N92.4] Order(s):CBC [[facility]] Order #: [id number] FUTURE Prescriptions as of 10/28/2020 Sig: METFORMIN [...] Heart murmur [R01.1] 10/02/2020 More... Patient is Quaker [Z78.9] 10/02/2020 More... Encounter Status:Closed by MARJORIE NOBLES RN on 10/29/20 [facility] 10-06-2020 [facility] Telephone ([id number]) APRYL DOWNS ([id number]) 1980 F Date Time Provider Department 10/06/20 AYAH MUÑOZ [id number] During your visit today, we recorded the following information about you: Yoli Jacobo 10/06/2020 9:46 AM Signed Apryl Downs called today. : 1980 Allergies: Oxycodone-Acetaminop hen (home) [phone] (cell) Reason for call: Patient calling with [...] of provider message. Work release sent via [employer]. Pt verbalized understanding. Lana Blackmon RN Allergies As of Date: 10/06/2020 Noted Allergy Reaction OXYCODONE-ACETAMINOP HEN 09/09/2020 2 - Rash Comments: Has tolerated norco in the past Date Reviewed: 10/03/2020 Reviewed by: Bharti Lorenz (Rn) CARMELITA Zavala - Fully Assessed Reason for Visit: [...] Heart murmur [R01.1] 10/02/2020 More... Patient is Quaker [Z78.9] 10/02/2020 More... Letter Text Encounter Status:Closed by LANA BLACKMON RN on 10/06/20 Normal [facility] ANES POSTPROC EVALon 021 ANES POSTPROC EVAL HNO ID: [id number] Author: Naz Caballero Service: Anesthesiology Author Type: Anesthesiologist Type: Anesthesia Postprocedure Evaluation Filed: 10/03/2020 8:32 AM Note Text: POST ANESTHESIA EVALUATION NOTE : 1980 Procedure Summary Date: 10/03/20 Room / Location: OR / AV OR Anesthesia Start: 741 Anesthesia Stop: 815 [...] October 03, 2020 TIME: 8:32 AM CSN: [id number] [facility] ANES PRE-OPon 10-03-2020 ANES PRE-OP HNO ID: [id number] Author: Naz Caballero Service: Anesthesiology Author Type: [...] October 03, 2020 TIME: 7:02 AM CSN: [id number] Normal [facility] OPERATIVE NOon 10-03-2020 OPERATIVE NO HNO ID: [id number] Author: Ayah Muñoz Service: Gynecology Author Type: Physician Type: Operative Report Filed: 10/03/2020 4:23 PM Note Text: [facility] - Operative Report APRYL DOWNS : 1980 AGE: 40. SEX: F PATIENT TYPE: A HOSP SVC: OBGYN LOCATION: [facility] ATTENDING PHYSICIAN: Ayah Muñoz M.D. CSN NUMBER: [id number] DATE OF SURGERY/PROCEDURE: 10/03/2020 INCISION/PROCEDURE START TIME: 7:57 AM INCISION CLOSE/PROCEDURE END TIME: 8:07 AM PREOPERATIVE DIAGNOSIS: Menorrhagia. POSTOPERATIVE DIAGNOSIS: Menorrhagia. SURGEON: Ayah Muñoz M.D. ROLLER SHOP SUPERVISOR: None. SURGERY/PROCEDURE: Hysteroscopy, Ann endometrial ablation, D [...] was placed in dorsal lithotomy position in [facility]. The patient was prepped and draped in [...] BLOOD LOSS: 5 mL. Ayah Muñoz M.D. FSB:[id number] /[id number] Normal [facility] SURGICAL PATHOLOGYon 021 SURGICAL PATHOLOGY Specimen originated from [facility] Specimen #: [id number] Submitting Physician: AYAH MUÑOZ MD FINAL DIAGNOSIS [...] in five cassettes. Gross examination performed at [facility], [address] [place] [address] 10/03/2020 12:53:09 PM Date of Report: 10/06/2020 Date of Procedure: 10/03/2020 Date of Receipt: 10/03/2020 Submitted by: AYAH MUÑOZ MD Location: AVSG Diagnostic interpretation performed at [facility], [address], [facility] [address]. CLIA Number: [id number] Normal [facility] Reference Lab Comment on above: Performed [...] murmur [R01.1] Heart murmur [R01.1] Patient is Quaker [Z78.9] Allergies: Oxycodone-Acetaminop hen Date Verified: 10/03/20 Lab Values Lab Value Units Date High Low POTA* 4.1 mmol/L 09/19/2020 5.1 3.7 BRISEIDA* 29.5 % 09/24/2020 46.0 36.0 Progress Notes (EDITOR MANAGING NEWSPAPER JUANITA 650): Marjorie Nobles RN 09/25/2020 2:34 PM Addendum Patient called the office for endo bx results. She was seen on 09/22 and discussed menorrhagia. Reviewed endo bx results below with the patient. Questions answered. She has PUS scheduled for 10/16. She discussed an ablation at her appointment and would like to schedule. Please advise if OK to schedule surgery. Mrajorie Nobles RN FINAL DIAGNOSIS Endometrium, biopsy - Proliferative endometrium. Previous Version Ayah Muñoz MD 09/25/2020 3:53 PM Signed Ok to schedule any time. Thank you. Jessica Barnard Ma 09/26/2020 10:25 AM Signed Left message for pt to contact office regarding scheduling surgical case. Jessica Barnard Ma 09/26/2020 12:25 PM Signed Pt scheduled for 10/03/20 at [facility] time TBD for Hysteroscopy endometrial ablation DANDC for menorrhagia AND anemia through [facility] today. Pt notified of the all surgery information above. Pt aware that she will require pre op testing prior to surgery and PAT number given to pt to call and schedule. Pt aware PAT needs completed to proceed with surgery. Pt is aware she will need to be at [facility] as instructed by [facility] and no solid food after midnight. The [facility] facility will contact the pt the day [...] for surgical case scheduled for 10/03/20 at [facility], please approve if appropriate. Spoke with pt. Pt aware if she can provider hard copy of positive test then she will not need test but if not she needs to be tested per [facility] surgery scheduling. COVID scheduled for 10/01/20 at 12:30 pm at [facility], pt aware. Progress Notes (BRISEIDA BRITO ): Halima Alvarez 09/24/2020 11:12 AM Signed Pt states that she is very tired and weak. Halima Weber, RADHA.YARD TRUCK DRIVER 09/26/2020 3:27 PM Signed PATIENT NAME: Apryl [...] deficiency anemia, seen for scheduled follow-up. (Former [facility] patient) INTERIM HISTORY: Apryl Downs returns for [...] on 10/09/2020 for a pelvic ultrasound the applications intern's office will be calling her to set [...] medications. Continue management per PCP. Job Weber APRN.[facility] BASIC METABOLIC PANELon Calcium [Mass/Vol] 8.4 mg/dL Low 8.6-10.[address] [facility] Comment on above: Order Comment: No: D o not add to previous draw Performed By: #### 3 1079 #### [facility] [address] [place] [address], [place] Chloride [Moles/Vol] 108 mmol/L High 98-[address] [facility] Comment on above: Order Comment: No: D o not add to previous draw Performed By: #### 3 1079 #### [facility] [address] [place] [address], [place] CO2 [Moles/Vol] 25 mmol/L Normal 21-[address] [facility] Comment on above: Order Comment: No: D o not add to previous draw Performed By: #### 3 1079 #### [facility] [address] [place] [address], [place] Creatinine [Mass/Vol] 0.45 mg/dL Low 0.60-1.[address] [facility] Comment on above: Order Comment: No: D o not add to previous draw Performed By: #### 3 1079 #### [facility] [address] [place] [address], [place] GFR/1.73 sq M predicted among blacks MDRD (S/P/Bld) [Vol rate/Area] mL/min/{1.73_m2} Normal >[address] [facility] Comment on above: Order Comment: No: D o not add to previous draw Performed By: #### 3 1079 #### [facility] [address] [place] [address], [place] GFR/1.73 sq M predicted among non-blacks MDRD (S/P/Bld) [Vol rate/Area] mL/min/{1.73_m2} Normal >[address] [facility] Comment on above: Order Comment: No: D o not add to previous draw Performed By: #### 3 1079 #### [facility] [address] [place] [address], [place] Glucose [Mass/Vol] 123 mg/dL High 70-[address] [facility] Comment on above: Order Comment: No: D o not add to previous draw Performed By: #### 3 1079 #### [facility] [address] [place] [address], [place] Potassium [Moles/Vol] 3.7 mmol/L Normal 3.5-5.[address] [facility] Comment on above: Order Comment: No: D o not add to previous draw Performed By: #### 3 1079 #### [facility] [address] [place] [address], [place] Sodium [Moles/Vol] 137 mmol/L Normal 136-[address] [facility] Comment on above: Order Comment: No: D o not add to previous draw Performed By: #### 3 1079 #### [facility] [address] [place] [address], [place] Urea nitrogen [Mass/Vol] 14 mg/dL Normal 7-[address] [facility] Comment on above: Order Comment: No: D o not add to previous draw Performed By: #### 3 1079 #### [facility] [address] CBC COMPLETE BLOOD COUNTon 0 04-02-2019 Erythrocyte distribution width (RBC) [Ratio] 13.4 % Normal 11.5-15.[address] [facility] Comment on above: Order Comment: No: D o not add to previous draw Performed By: #### 3 1079 #### [facility] [address] [facility] [place] [place] [address], [facility] Hematocrit (Bld) [Volume fraction] 36.6 % Normal 36.0-45.[address] [facility] Comment on above: Order Comment: No: D o not add to previous draw Performed By: #### 3 1079 #### [facility] [address] Hemoglobin (Bld) [Mass/Vol] 11.7 g/dL Low 12.0-15.[address] [facility] Comment on above: Order Comment: No: D o not add to previous draw Performed By: #### 3 1079 #### [facility] [address] [place] [address], [facility] MCH (RBC) [Entitic mass] 29.2 pg Normal 27.0-33.[address] [facility] Comment on above: Order Comment: No: D o not add to previous draw Performed By: #### 3 1079 #### [facility] [address] [place] [address], [facility] MCHC (RBC) [Mass/Vol] 32.0 g/dL Normal 32.0-35.[address] [facility] Comment on above: Order Comment: No: D o not add to previous draw Performed By: #### 3 1079 #### [facility] [address] [place] [address], [facility] MCV (RBC) [Entitic vol] 91.3 fL Normal 82.0-98.[address] [facility] Comment on above: Order Comment: No: D o not add to previous draw Performed By: #### 3 1079 #### [facility] [address] [place] [address], [facility] Nucleated RBC/100 WBC (Bld) [Ratio] 0 % Normal 0-[address] [facility] Comment on above: Order Comment: No: D o not add to previous draw Performed By: #### 3 1079 #### [facility] [address] [place] [address], [facility] PLAT CNT 227 10*3/uL Normal 150-[address] [facility] Comment on above: Order Comment: No: D o not add to previous draw Performed By: #### 3 1079 #### [facility] [address] [place] [address], [facility] RBC (Bld) [#/Vol] 4.01 10*6/uL Normal 3.80-5.[address] [facility] Comment on above: Order Comment: No: D o not add to previous draw Performed By: #### 3 1079 #### [facility] [address] [place] [address], [facility] WBC (Bld) [#/Vol] 5.58 10*3/uL Normal 4.00-10.[address] [facility] Comment on above: Order Comment: No: D o not add to previous draw Performed By: #### 3 1079 #### [facility] [address] [place] [address], [facility] POC GLUCOSE LABon 04-02-2019 Glucose [Mass/Vol] 135 mg/dL High 70-[address] [facility] Comment on above: Performed By: #### 3 1079 #### [facility] [address] [facility] [place] [address], [facility] Glucose [Mass/Vol] 124 mg/dL High 70-[address] [facility] Comment on above: Performed By: #### 3 1079 #### [facility] [address] [place] [address], [facility] URINALYSIS REFLEXon 08-05-20 19 AMORPHOUS FEW Abnormal NONE SEEN [facility] Comment on above: Order Comment: No: D o not add to previous draw Performed By: #### 3 1079 #### [facility] [address] [place] [address], [place] Appearance (U) SL CLOUDY Abnormal CLEAR [facility] Comment on above: Order Comment: No: D o not add to previous draw Performed By: #### 3 1079 #### [facility] [address] [place] [address], [place] Bilirubin [Mass/Vol] Negative Normal NEGATIVE [facility] Comment on above: Order Comment: No: D o not add to previous draw Performed By: #### 3 1079 #### [facility] [address] [place] [address], [place] BLOOD LARGE Abnormal NEGATIVE [facility] Comment on above: Order Comment: No: D o not add to previous draw Performed By: #### 3 1079 #### [facility] [address] [place] [address], [place] Color (U) YELLOW Normal YELLOW [facility] Comment on above: Order Comment: No: D o not add to previous draw Performed By: #### 3 1079 #### [facility] [address] [place] [address], [place] EPIS MANY Abnormal FEW,OCC,NONE SEEN [facility] Comment on above: Order Comment: No: D o not add to previous draw Performed By: #### 3 1079 #### [facility] [address] [place] [address], [place] Glucose [Mass/Vol] Negative Normal NEGATIVE [facility] Comment on above: Order Comment: No: D o not add to previous draw Performed By: #### 3 1079 #### [facility] [address] [place] [address], [place] KETONE Negative Normal NEGATIVE [facility] Comment on above: Order Comment: No: D o not add to previous draw Performed By: #### 3 1079 #### [facility] [address] [place] [address], [place] LEUK TITI Negative Normal NEGATIVE [facility] Comment on above: Order Comment: No: D o not add to previous draw Performed By: #### 3 1079 #### [facility] [address] [place] [address], [place] MUCUS THREADS FEW Abnormal NONE SEEN [facility] Comment on above: Order Comment: No: D o not add to previous draw Performed By: #### 3 1079 #### [facility] [address] [place] [address], [place] Nitrite Ql (U) Negative Normal NEGATIVE [facility] Comment on above: Order Comment: No: D o not add to previous draw Performed By: #### 3 1079 #### [facility] [address] [place] [address], [facility] pH (Bld) 7.0 Normal 5.0-8.[address] [facility] Comment on above: Order Comment: No: D o not add to previous draw Performed By: #### 3 1079 #### [facility] [address] [place] [address], [place] Protein (U) [Mass/Vol] Negative Normal NEGATIVE [facility] Comment on above: Order Comment: No: D o not add to previous draw Performed By: #### 3 1079 #### [facility] [address] [place] [address], [place] RBC (U) [#/Vol] 0-2 Abnormal NONE SEEN [facility] Comment on above: Order Comment: No: D o not add to previous draw Performed By: #### 3 1079 #### [facility] [address] [place] [address], [place] SPEC GRAV 1.017 Normal 1.015-1.[address] [facility] Comment on above: Order Comment: No: D o not add to previous draw Performed By: #### 3 1079 #### [facility] [address] [place] [address], [place] UA COMMENT 2 UROBILINOGEN (E.U./DL) 4.[address] [facility] Comment on above: Order Comment: No: D o not add to previous draw Performed By: #### 3 1079 #### [facility] [address] [place] [address], [place] WBC UA 0-2 Abnormal NONE SEEN [facility] Comment on above: Order Comment: No: D o not add to previous draw Performed By: #### 3 1079 #### [facility] [address] [place] [address], [place] BASIC METABOLIC PANELon 08-0 -2019 Calcium [Mass/Vol] 8.6 mg/dL Normal 8.6-10.[address] [facility] Comment on above: Order Comment: No: D o not add to previous draw Performed By: #### 4 1000, 85868, 48932 #### [facility] [address] [place] [address], [place] Chloride [Moles/Vol] 107 mmol/L Normal 98-[address] [facility] Comment on above: Order Comment: No: D o not add to previous draw Performed By: #### 4 1000, 77095, 20250 #### [facility] [address] [place] [address], [place] CO2 [Moles/Vol] 24 mmol/L Normal 21-[address] [facility] Comment on above: Order Comment: No: D o not add to previous draw Performed By: #### 4 1000, 00406, 97946 #### [facility] [address] [place] [address], [place] Creatinine [Mass/Vol] 0.50 mg/dL Low 0.60-1.[address] [facility] Comment on above: Order Comment: No: D o not add to previous draw Performed By: #### 4 1000, , 30691 #### [facility] [address] [place] [address], [place] GFR/1.73 sq M predicted among blacks MDRD (S/P/Bld) [Vol rate/Area] mL/min/{1.73_m2} Normal >[address] [facility] Comment on above: Order Comment: No: D o not add to previous draw Performed By: #### 4 1000, , 26124 #### [facility] [address] [place] [address], [place] GFR/1.73 sq M predicted among non-blacks MDRD (S/P/Bld) [Vol rate/Area] mL/min/{1.73_m2} Normal >[address] [facility] Comment on above: Order Comment: No: D o not add to previous draw Performed By: #### 4 1000, , 29711 #### [facility] [address] [place] [address], [place] Glucose [Mass/Vol] 106 mg/dL High 70-[address] [facility] Comment on above: Order Comment: No: D o not add to previous draw Performed By: #### 4 1000, , 66313 #### [facility] [address] [place] [address], [place] Potassium [Moles/Vol] 3.3 mmol/L Low 3.5-5.[address] [facility] Comment on above: Order Comment: No: D o not add to previous draw Performed By: #### 4 1000, , 69069 #### [facility] [address] [place] [address], [place] Sodium [Moles/Vol] 139 mmol/L Normal 136-[address] [facility] Comment on above: Order Comment: No: D o not add to previous draw Performed By: #### 4 1000, , 75024 #### [facility] [address] [place] [address], [place] Urea nitrogen [Mass/Vol] 11 mg/dL Normal 7-[address] [facility] Comment on above: Order Comment: No: D o not add to previous draw Performed By: #### 4 1000, 23526, 94587 #### [facility] [address] [place] [address], [facility] CBC COMPLETE BLOOD COUNTon 0 04-01-2019 Erythrocyte distribution width (RBC) [Ratio] 13.5 % Normal 11.5-15.[address] [facility] Comment on above: Order Comment: No: D o not add to previous draw Performed By: #### 5 0608, 24524 #### [facility] [address] [place] [id number], [facility] Hematocrit (Bld) [Volume fraction] 36.7 % Normal 36.0-45.[address] [facility] Comment on above: Order Comment: No: D o not add to previous draw Performed By: #### 5 06, 91037 #### [facility] [address] [place] [address], [facility] Hemoglobin (Bld) [Mass/Vol] 11.9 g/dL Low 12.0-15.[address] [facility] Comment on above: Order Comment: No: D o not add to previous draw Performed By: #### 5 06, 15750 #### [facility] [address] [place] [address], [facility] MCH (RBC) [Entitic mass] 29.0 pg Normal 27.0-33.[address] [facility] Comment on above: Order Comment: No: D o not add to previous draw Performed By: #### 5 06, 14264 #### [facility] [address] [place] [address], [facility] MCHC (RBC) [Mass/Vol] 32.4 g/dL Normal 32.0-35.[address] [facility] Comment on above: Order Comment: No: D o not add to previous draw Performed By: #### 5 06, 76238 #### [facility] [address] [place] [address], [facility] MCV (RBC) [Entitic vol] 89.5 fL Normal 82.0-98.[address] [facility] Comment on above: Order Comment: No: D o not add to previous draw Performed By: #### 5 0608, 43558 #### [facility] [address] [place] [address], [facility] Nucleated RBC/100 WBC (Bld) [Ratio] 0 % Normal 0-[address] [facility] Comment on above: Order Comment: No: D o not add to previous draw Performed By: #### 5 607, 57028 #### [facility] [address] [place] [address], [facility] PLAT CNT 226 10*3/uL Normal 150-[address] [facility] Comment on above: Order Comment: No: D o not add to previous draw Performed By: #### 5 607, 44677 #### [facility] [address] [place] [address], [facility] RBC (Bld) [#/Vol] 4.10 10*6/uL Normal 3.80-5.[address] [facility] Comment on above: Order Comment: No: D o not add to previous draw Performed By: #### 5 607, 62065 #### [facility] [address] [facility] [place] [address], [facility] WBC (Bld) [#/Vol] 7.18 10*3/uL Normal 4.00-10.[address] [facility] Comment on above: Order Comment: No: D o not add to previous draw Performed By: #### 5 0608, 87653 #### [facility] [address] [place] [address], [facility] CRP HIGH SENSITIVITYon 04-01 HIGH SENSITIVITY CRP 4.39 mg/L Normal [facility] Comment on above: Order Comment: No: D o not add to previous draw Result Comment: HIGH SENSITIVITY CRP (hs_CRP) REFERENCE RANGES Less than 1.0 mg/L: lowest tertile, lowest risk 1.0-3.0 mg/L: middle tertile, average risk Greater than 3.0 mg/L: highest tertile, highest risk Performed By: #### 3 1079 #### [id number] [place] [address] CT BRAIN WO CONTRASTon 04-01 CT BRAIN WO CONTRAST [facility] Department of Radiology [address] [place] [id number] Patient Name: APRYL DOWNS : 1980 Sex: F Age: Race: Other Pt. Location: [id number] Patient Status: I Ordered Date: 04/01/2019 3:00:00 [...] findings. Electronically signed by:Alice Coello. Transcribed by: [email or web address], User Resident: RYAN GONZALEZ Electronically Signed by: ALICE COELLO @ 04/02/2019 08:59 AM I personally read this/these film(s) with this resident Normal [facility] Comment on above: Order Comment: No: D o not add to previous draw MAGNESIUM BLOODon 04-01-2019 Magnesium [Mass/Vol] 2.2 mg/dL Normal 1.9-2.[address] [facility] Comment on above: Order Comment: No: D o not add to previous draw Performed By: #### 4 999, 89297, 44014 #### [facility] [address] [facility] [address], [facility] PHOSPHORUS BLOODon 9 Phosphate [Mass/Vol] 3.9 mg/dL Normal 2.5-5.[address] [facility] Comment on above: Order Comment: No: D o not add to previous draw Performed By: #### 4 1000, 98708, 77169 #### [facility] [address] [facility] [place] [address], [facility] POC GLUCOSE LABon 04-01-2019 Glucose [Mass/Vol] 120 mg/dL High 70-[address] [facility] Comment on above: Performed By: #### 3 1079 #### [facility] [address] [facility] [place] [address], [facility] SEDIMENTATION RATEon 019 SED RATE 23 mm/hr High 0-[address] [facility] Comment on above: Order Comment: No: D o not add to previous draw Performed By: #### 5 0608, 55113 #### [facility] [address] [facility] [place] [address], [facility] CT BRAIN PERFUSIONon [address] PERFUSION [facility] Department of Radiology [address] [place] [id number] Patient Name: APRYL DOWNS : 1980 Sex: [...] FINDINGS: Please see report for dictation number [id number] CTA neck CTA brain and perfusion were all dictated together Electronically signed by:Etta Irvin. Transcribed by: [email or web address], User Resident: Electronically Signed by: ETTA IRVIN @ 04/09/2019 10:35 AM Normal [facility] Comment on above: Order Comment: No: D o not add to previous draw CTA NECKon 03-31-[address] [facility] Department of Radiology [address] [place] [id number] Patient Name: APRYL DOWNS : 1980 [...] abnormality Electronically signed by:Etta Irvin. Transcribed by: [email or web address], User Resident: Electronically Signed by: ETTA IRVIN @ 03/31/2019 04:31 PM Normal [facility] Comment on above: Order Comment: Strok e transfer, lt side weakness MRI BRAIN W WO CONTRASTon MRI BRAIN W WO CONTRAST [facility] Department of Radiology [address] [place] [id number] Patient Name: APRYL DOWNS : 1980 Sex: F Age: Race: Other Pt. Location: [place] [address] Patient Status: I Ordered Date: 03/31/2019 4:10:00 [...] findings. Electronically signed by:Etta Irvin. Transcribed by: [email or web address], User Resident: VICKIE ELLIS Electronically Signed by: ETTA IRVIN @ 04/01/2019 09:56 AM I personally read this/these film(s) with this resident Normal [facility] Comment on above: Order Comment: R/O C [facility] MRI CERVICAL SPINE W WO CONT LIBRATon 03-31-2019 MRI CERVICAL SPINE W WO CONTRAST [facility] Department of Radiology [address] [place] [phone] Patient Name: APRYL DOWNS : 1980 Sex: F Age: Race: Other Pt. Location: [place] [address] Patient Status: I Ordered Date: 03/31/2019 4:05:00 [...] findings. Electronically signed by:Etta Irvin. Transcribed by: [email or web address], User Resident: VICKIE ELLIS Electronically Signed by: ETTA IRVIN @ 04/01/2019 09:53 AM I personally read this/these film(s) with this resident Normal [facility] Comment on above: Order Comment: R/O C ord Compression POC GLUCOSE LABon 03-31-2019 Glucose [Mass/Vol] 118 mg/dL High 70-[address] [facility] Comment on above: Performed By: #### 8 5499 #### [facility] [address] [facility] [place] [address], [facility] TOX PANEL URINEon 03-31-2019 50 THC Negative Normal NEGATIVE [facility] Comment on above: Order Comment: No: D o not add to previous draw Performed By: #### 3 8999 #### [facility] [address] [place] [address], [facility] BARBITURATES Negative Normal NEGATIVE [facility] Comment on above: Order Comment: No: D o not add to previous draw Performed By: #### 3 1389 #### [facility] [address] [place] [address], [facility] Benzodiazepines Ql (U) Negative Normal NEGATIVE e [facility] Comment on above: Order Comment: No: D o not add to previous draw Performed By: #### 3 2969 #### [facility] [address] [place] [address], [facility] Cocaine Ql (U) Negative Normal NEGATIVE [facility] Comment on above: Order Comment: No: D o not add to previous draw Performed By: #### 3 1079 #### [facility] [address] [place] [address], [place] Methadone Ql (U) Negative Normal NEGATIVE [facility] Comment on above: Order Comment: No: D o not add to previous draw Performed By: #### 3 1079 #### [facility] [address] [place] [address], [place] MONO AMPHET Negative Normal NEGATIVE [facility] Comment on above: Order Comment: No: D o not add to previous draw Performed By: #### 3 1079 #### [facility] [address] [place] [address], [place] Opiates Ql (U) Negative Normal NEGATIVE [facility] Comment on above: Order Comment: No: D o not add to previous draw Performed By: #### 3 1079 #### [facility] [address] [place] [address], [place] Phencyclidine Ql (U) Negative Normal NEGATIVE [facility] Comment on above: Order Comment: No: D o not add to previous draw Performed By: #### 3 1079 #### [facility] [address] [place] [address], [place] PROPOXYPHENE Negative Normal NEGATIVE [facility] Comment on above: Order Comment: No: D o not add to previous draw Performed By: #### 3 1079 #### [facility] [address] [place] [address], [place] TRICYCLICS Negative Normal NEGATIVE [facility] Comment on above: Order Comment: No: D o not add to previous draw Performed By: #### 3 1079 #### [facility] [address] [place] [address], [place] Vital Signs Date Time Vital Sign Value Performing Clinician Facility 10-04-2024 11:39-0500 Body height 161.29 cm [facility] 10-04-2024 11:39-0500 Body mass index (BMI) [Ratio] 31.8 kg/m2 [facility] 10-04-2024 11:39-0500 Body weight 83 kg [facility] 10-04-2024 11:39-0500 Diastolic blood pressure 84 mm[Hg] [facility] 10-04-2024 11:39-0500 Heart rate 78 /min [facility] 10-04-2024 11:39-0500 Systolic blood pressure 140 mm[Hg] [facility] 09-24-2024 16:01-0500 Body height 162.6 cm Earnest Dolce DPM [facility]AC[facility] Work Phone: [facility] 09-24-2024 16:01-0500 Body mass index (BMI) [Ratio] 32.61 kg/m2 Earnest Dolce DPM [facility] Work Phone: [facility] 09-24-2024 16:01-0500 Body weight 86.18 kg Earnest Dolce DPM [facility] Work Phone: [facility] 09-24-2024 16:01-0500 Diastolic blood pressure 74 mm[Hg] Earnest Dolce DPM [facility] Work Phone: [facility] 09-24-2024 16:01-0500 Heart rate 74 /min Earnest Dolce DPM [facility] Work Phone: [facility] 09-24-2024 16:01-0500 Systolic blood pressure 118 mm[Hg] Earnest Dolce DPM [facility] Work Phone: [facility] 09-10-2024 14:15-0500 Body height 162.6 cm Earnest Dolce DPM [employer] Work Phone: [facility] 09-10-2024 14:15-0500 Body mass index (BMI) [Ratio] 32.61 kg/m2 Earnest Dolce DPM [facility] Work Phone: [facility] 09-10-2024 14:15-0500 Body weight 86.18 kg Earnest Dolce DPM [employer] Work Phone: [facility] 09-10-2024 14:15-0500 Diastolic blood pressure 72 mm[Hg] Earnest Salomon DPM [employer] Work Phone: [facility] 09-10-2024 14:15-0500 Heart rate 70 /min Earnest Salomon DPM [employer] Work Phone: [facility] 09-10-2024 14:15-0500 Systolic blood pressure 115 mm[Hg] Earnest Salomon DPM [facility] Work Phone: [facility] 06-14-2024 13:32-0400 Body height 161.29 cm [facility] 06-14-2024 13:32-0400 Body mass index (BMI) [Ratio] 34.7 kg/m2 [facility] 06-14-2024 13:32-0400 Body weight 90.26 kg [facility] 06-14-2024 13:32-0400 Diastolic blood pressure 97 mm[Hg] [facility] 06-14-2024 13:32-0400 Heart rate 76 /min [facility] 06-14-2024 13:32-0400 Systolic blood pressure 165 mm[Hg] [facility] 03-19-2024 10:53-0400 Body height 161.29 cm [facility] 03-19-2024 10:53-0400 Body mass index (BMI) [Ratio] 34.5 kg/m2 [facility] 03-19-2024 10:53-0400 Body weight 89.81 kg [facility] 06-14-2023 10:30-0400 Body height 161.29 cm Amanda Villafana Other [employer] Other 06-14-2023 10:30-0400 Body mass index (BMI) [Ratio] 33.13 kg/m2 Amanda Villafana Other [employer] Other 06-14-2023 10:30-0400 Body weight 86.18 kg Amanda Villafana Other [employer] Other 06-14-2023 10:30-0400 Diastolic blood pressure 84 mm[Hg] Amanda Villafana Other [facility] Other 06-14-2023 10:30-0400 Systolic blood pressure 129 mm[Hg] Amanda Khalida Other [facility] Other 02-04-2022 21:00-0400 Diastolic blood pressure 95 mm[Hg] Pete Joel [facility] 02-04-2022 21:00-0400 Heart rate 78 /min Pete Joel [facility] 02-04-2022 21:00-0400 Hourly Rounding Pete Joel [facility] 02-04-2022 21:00-0400 Mean blood pressure 126 mm[Hg] Pete Joel [facility] 02-04-2022 21:00-0400 Promise to Return Pete Joel [facility] 02-04-2022 21:00-0400 Respiratory rate 14 /min Pete Joel [facility] 02-04-2022 21:00-0400 SaO2% (BldA) [Mass fraction] 99 % Pete Joel [facility] 02-04-2022 21:00-0400 Systolic blood pressure 189 mm[Hg] Pete Joel [facility] 02-04-2022 20:00-0400 Diastolic blood pressure 94 mm[Hg] Pete Joel [facility] 02-04-2022 20:00-0400 Heart rate 77 /min Pete Joel [facility] 02-04-2022 20:00-0400 Mean blood pressure 125 mm[Hg] Pete Joel [facility] 02-04-2022 20:00-0400 Systolic blood pressure 187 mm[Hg] Pete Maldonado [facility] 02-04-2022 19:00-0400 Diastolic blood pressure 85 mm[Hg] Pete Maldonado [facility] 02-04-2022 19:00-0400 Heart rate 74 /min Pete Maldonado [facility] 02-04-2022 19:00-0400 Mean blood pressure 114 mm[Hg] Pete Maldonado [facility] 02-04-2022 19:00-0400 Respiratory rate 11 /min Pete Maldonado [facility] 02-04-2022 19:00-0400 SaO2% (BldA) [Mass fraction] 97 % Pete Maldonado [facility] 02-04-2022 19:00-0400 Systolic blood pressure 172 mm[Hg] Pete Maldonado [facility] 02-04-2022 18:22-0400 gluc 146 mg/dL Pete Maldonado [facility] 02-04-2022 18:22-0400 gluc Pete Maldonado [facility] 02-04-2022 17:55-0400 Body temperature 98.24 [degF] Pete Maldonado [facility] 02-04-2022 17:55-0400 Heart rate 76 /min Pete Maldonado [facility] 02-04-2022 17:55-0400 Respiratory rate 18 /min Pete Maldonado [facility] Encounters Encounter Date Encounter Type Care Provider Facility Start: 10-04-2024 End: 10-04-[address] [facility] Work Phone: Start: 10-04-2024 End: 10-04-2024 Patient encounter procedure [facility] Work Phone: Start: 09-24-2024 End: 09-24-2024 ambulatory EARNEST D DOLCE Not Available Start: 09-24-2024 End: 09-24-2024 Office outpatient visit 15 minutes Earnest D Dolce DPM [facility] Work Phone: [facility] Comment on above: Gastrocnemius equinu s of left lower extremity (Primary Dx); Plantar fasciitis; Calcaneal spur, left foot Start: 09-24-2024 End: 09-24-2024 Bamboo flowsheet Earnest D Dolce DPM FACFAS Work Phone: [facility] Start: 09-24-2024 End: 09-24-2024 Bamboo flowsheet Earnest D Dolce DPM [facility]AC[facility]AS Work Phone: [facility] Start: 09-10-2024 End: 09-10-2024 ambulatory EARNEST D DOLCE Not Available Start: 09-10-2024 End: 09-10-2024 Bamboo flowsheet Earnest D Dolce DPM FAC[facility]AS Work Phone: [facility] Start: 09-10-2024 End: 09-10-2024 Bamboo flowsheet Earnest D Dolce DPM [facility]AC[facility]AS Work Phone: [facility] Start: 09-10-2024 End: 09-10-2024 Office outpatient new 30 minutes Earnest D Dolce DPM FAC[facility]AS Work Phone: [facility] Comment on above: Calcaneal spur, left foot (Primary Dx); Plantar fasciitis; Gastrocnemius equinus of left lower extremity Start: 07-06-2024 Non-patient / Non-visit [facility] Work Phone: Start: 06-14-2024 End: 06-14-2024 ambulatory [facility] Work Phone: Start: 06-14-2024 End: 06-14-2024 Patient encounter procedure [facility] Work Phone: Start: 03-19-2024 End: 03-19-2024 ambulatory [facility] Work Phone: Start: 03-19-2024 End: 03-19-2024 Patient encounter procedure [facility] Work Phone: Start: 03-14-2024 Non-patient / Non-visit [facility] Work Phone: Start: 01-09-[address] [facility] Start: 09-26-2023 End: 09-26-2023 ambulatory Amanda Villafana Other [facility] Other Start: 09-26-2023 Telephone encounter Amanda Villafana [facility] Start: 08-24-2023 ambulatory Mateo ALVA Facility :[facility] Start: 08-05-2023 ambulatory SAMANTA COTA Facility: [facility] Start: 08-04-2023 Telephone encounter Amanda Villafana [facility] Start: 08-04-2023 End: 08-04-2023 ambulatory Amanda Villafana Other [facility] Other Start: 07-05-2023 End: 07-05-2023 ambulatory Amanda Villafana Other [facility] Other Start: 07-05-2023 Telephone encounter Amanda Villafana [facility] Start: 06-28-2023 End: 06-28-2023 ambulatory Amanda Villafana Other [facility] Other Start: 06-28-2023 Telephone encounter Amanda Khalida [facility] Start: 06-27-2023 End: 06-27-2023 ambulatory Amanda Villafana Other [facility] Other Start: 06-27-2023 Telephone encounter Amanda Villafana [facility] Start: 06-23-2023 End: 06-23-2023 ambulatory Amanda Villafana Other [facility] Other Start: 06-23-2023 Telephone encounter Amanda Villafana [facility] Start: 06-14-2023 End: 06-14-2023 ambulatory Amanda Villafana Other [facility] Other Start: 06-14-2023 Office outpatient vi sit [address] [facility] Start: 05-31-2023 End: 05-31-2023 ambulatory Amanda Villafana Other [facility] Other Start: 05-31-2023 Telephone encounter Amanda Villafana [facility] Start: 03-08-2023 End: 03-09-2023 ambulatory SAMANTA Ara COTA Facility:[facility] Start: 03-08-2023 End: 03-08-2023 Patient encounter procedure SAMANTA Ara COTA [facility] Start: 12-13-2022 End: 12-22-2022 Pre-admission assessment SAMANTA Ara COTA [facility] Start: 12-12-2022 End: 12-12-2022 ambulatory [employer] SAMANTA JANNYHHOLZ Facility:[facility] Start: 11-29-2022 End: 11-30-2022 ambulatory [employer] DR[employer] SAMANTA AICHHOLZ Facility:[facility] Start: 10-13-2022 ambulatory [employer] DR[employer] SAMANTA AICHHOLZ Facil ity:[facility] Start: 09-14-2022 End: 09-15-2022 ambulatory [employer] SAMANTA AICHHOLZ Facility:[facility] Start: 06-09-2022 End: 06-10-2022 ambulatory [employer] SAMANTA AICHHOLZ Facility:[facility] Start: 05-06-2022 End: 05-26-2022 Pre-admission assessment SAMANTA J JOHNNYZ [facility] Start: 02-15-2022 End: 02-16-2022 ambulatory TRESA COTA Facility:[facility] Start: 02-04-2022 End: 02-04-2022 Emergency department patient visit Pete Maldonado [facility] Start: 12-31-2021 End: 12-31-2021 ambulatory TRESA COTA Facility:[facility] Start: 03-31-2019 End: 04-02-2019 Evaluation and management of inpatient PROVIDER UNKNOWN [facility] Procedures Date Procedure Procedure Detail Performing Clinician Start: 09-19-2020 H/O: section History of section Earnest Salomon DPM [facility] Work Phone: Start: 10-28-2011 Microscopic observat ion [Identifier] in Cervix by Cyto stain Earnest Salomon DPM [facility] Work Phone: section Pete Maldonado section Pete Maldonado H/O: tubal ligation Pete sigala Plan of Treatment Date Care Activity Detail Author Start: 10-15-2024 End: 10-15-2024 Clinical Support 10/15/2024 3:00 PM EST Clinical Support [facility] [address] [place] [id number] Earnest Salomon, DPM [facility] [address] [place] [address] [facility] Start: 04-29-2024 Influenza vaccination Influenza Vacc ine (#1) [facility] Start: 2018 Screening for malign ant neoplasm of breast Mammogram [facility] Start: 10-27-2016 Screening for malign ant neoplasm of cervix [facility] Start: 1997 Urine screening for protein Diabetes: Urine Protein Screening [facility] Start: 1988 Glaucoma screening Diabetes: R etinopathy Screening [facility] Start: 1978 Hemoglobin A1c measurement Diabetes: Hemoglobin A1C [facility] Start: 1978 Screening for malign ant neoplasm of colon [facility] XR Foot - left GE 3 Views [facility] Payers Date Payer Category Payer Private Health Insurance [facility]ICA[facility] [id number] 1978 Unknown [id number]. 647 1978 Unknown [id number] 2.16.840.1.030256.3.579.2. 593 1978 Unknown [id number] 2.16.840.1.275392.3.579.2. 593 1978 Unknown [id number] 2.16.840.1.740198.3.579.2. 593 1978 Unknown [id number] 2.16.840.1.393795.3.579.2. 593 1978 Unknown [id number] 2.16.840.1.365768.3.579.2. 593 1978 Unknown [id number] 2.16.840.1.251999.3.579.2. 593 1978 Unknown [id number] 2.16.840.1.268090.3.579.2. 593 1978 Unknown [id number] 2.16.840.1.551624.3.579.2. 727 1978 Unknown [id number] 2.16.840.1.550116.3.579.2. 727 1978 Unknown [id number] .16.840.1.964701.3.579.2. 727 1978 Unknown [id number] 2.16.840.1.156704.3.579.2. 1259 1978 Unknown [id number] 2.16.840.1.627153.3.579.2. 1259 1959 Unknown [id number] 1959 Unknown [id number] Unknown [facility] [id number] Social History Date Type Detail Facility Tobacco Unknown if ever smoked [facility] Comment on above: denies Start: 09-10-2024 End: 09-24-2024 Sex Assigned At Female [facility] Tobacco smoking status No Smokin g Status Entered [facility] Start: 06-14-2023 End: 06-14-2023 Tobacco smoking status NHIS Ex-smoker (finding) [facility] Start: 1980 Sex Assigned At Female F [facility] Tobacco smoking stat [facility] Tobacco smoking consumption unknown [facility] Start: 1980 Sex assigned at Not on file [facility] Start: 09-10-2024 Tobacco smoking stat [facility] Never smoked tobacco [facility] Work Phone: Start: 09-10-2024 Tobacco use and exposure Smokeless tobacco non-user [facility] Start: 09-10-2024 End: 09-24-2024 Alcoholic beverage intake Defer [facility] Start: 09-10-2024 End: 09-24-2024 History of Social function [facility] Start: 10-04-2024 Sex Female (finding) [facility] Clinical Notes 11-07-2020 to 09-24-2024 Earnest Salomon DPM [facility] - 09/24/2024 3:40 PM ESTEarnest Salomon DPM [facility] - 09/10/2024 2:00 PM EST Note Date & Type Note Facility 09-24-2024 History of Presen t illness Narrative Images from the original note were not included. Patient: Apryl Downs : 1980 PCP: Amanda Villafana MD SUBJECTIVE This is a 44 y.o. female that presents today for follow-up of plantar fasciitis left foot. They state they have been stretching and icing as directed. They relate mild to moderate improvement since their last visit. The patient rates the pain on a scale from 1-10 as an 5 with 10 being the worst pain of their life. Allergies: Allergies Allergen Reactions Oxycodone-Acetaminophen Rash Has tolerated norco in the past Past Medical History: Past Medical History: Diagnosis Date Breast cancer screening by mammogram 01/2018 Medications: Current Outpatient Medications: amitriptyline (Elavil) 50 MG tablet, Take 50 mg by mouth at bedtime. (Patient not taking: Reported on 09/10/2024), Disp: , Rfl: levothyroxine (Synthroid, Levoxyl) 125 MCG tablet, TAKE 1 TABLET DAILY, FIRST THING IN THE MORNING 2 HOURS PRIOR TO ANY OTHER FOOD/DRINK/MEDS, Disp: , Rfl: levothyroxine (Synthroid, Levoxyl) 137 MCG tablet, Take 137 mcg by mouth in the morning. (Patient not taking: Reported on 09/10/2024), Disp: , Rfl: lisinopril 20 MG tablet, Take 20 mg by mouth in the morning., Disp: , Rfl: metFORMIN (Glucophage) 500 MG tablet, Take 500 mg by mouth in the morning and 500 mg in the evening. Take with meals., Disp: , Rfl: Tirzepatide (Mounjaro) 2.5 MG/0.5ML solution pen-injector, Inject under the skin. (Patient not taking: Reported on 09/10/2024), Disp: , Rfl: Review of systems: Constitutional: Denies fever, chills, nausea, vomiting GI: Denies abdominal pain, cramping, loose stool, gastric ulcers Musculoskeletal: Denies low back pain, knee pain, systemic arthritis Neurologic: Denies burning, tingling, transient paralysis OBJECTIVE Physical Examination: DERM: Positive hair growth to b/l feet with good skin turgor noted. Negative openings in skin VASC: DP /PT were palpable bilateral. Capillary refill time < 3 seconds Digits 1-5 bilateral NEURO: [place] Lupe 5.07 monofilament was intact B/L. Vibratory sensation was intact B/L Musculoskeletal: Muscle strength was +5 over 5 all intrinsic and extrinsic muscles tested. There is less pain with direct palpation of the medial band of the plantar fascia left foot. Mild pain throughout the course of the plantar fascia. No palpable deficits or ecchymosis noted within the plantar fascial band. There is no pain with lateral compression of the heel. Patient has a mild gastrocnemius-soleus equinus with mild tenderness noted at the level of the Achilles tendon. No palpable deficits noted within the Achilles tendon. No pain with range of motion of the ankle or subtalar joint. Radiographs: AP/MO/LAT: Diagnostic ultrasound: DIAGNOSTIC ULTRASOUND 12 MEGAHERTZ LINEAR PROBE: INCREASED THICKNESS OF THE PLANTAR FASCIA GREATER THAN 4 MM INDICATING RECALCITRANT PLANTAR FASCIITIS LEFT FOOT. HEEL SPUR NOTED SITE 4 THE CALCANEUS LEFT measure 5.9 mm ASSESSMENT 1. Plantar fasciitis 2. Calcaneal spur, left foot 3. Gastrocnemius equinus of left lower extremity PLAN The patient was educated on the etiology of plantar fasciitis. I recommended the patient continue stretching and icing on a regular basis. I recommended another injection consisting of 1 cc of 2% lidocaine plain and 1 cc of Kenalog 10 via ultrasonic guidance into the medial and central bands of the plantar fascia. Ultrasound was necessary to ensure exact placement into the medial and central bands of the plantar fascia and avoid injection into the plantar fat pad. Patient was to continue stretching and icing she is improving follow up with me in 2 weeks. MANUEL Wasserman documented in this encounter [facility] 09-10-2024 History of Presen t illness Narrative Images from the original note were not included. Patient: Apryl Downs : 1980 PCP: Amanda Villafana MD SUBJECTIVE This is a 44 y.o. female that presents today with a chief complaint of painful left medial heel. They stay it hurts when they get out of bed in the morning and when they get up from a seated position. The pain improves with ambulation. They deny a history of trauma to the area. They have attempted numerous conservative therapies including: shoe gear modifications, vjtb-oei-ddfnwzl anti-inflammatory medications, wdum-axr-ylxmymd orthotic devices to no avail. They rate the pain scale from 1-10 as an 8 with 10 being the most painful. Allergies: Allergies Allergen Reactions Oxycodone-Acetaminophen Rash Has tolerated norco in the past Past Medical History: Past Medical History: Diagnosis Date Breast cancer screening by mammogram 01/2018 Medications: Current Outpatient Medications: levothyroxine (Synthroid, Levoxyl) 125 MCG tablet, TAKE 1 TABLET DAILY, FIRST THING IN THE MORNING 2 HOURS PRIOR TO ANY OTHER FOOD/DRINK/MEDS, Disp: , Rfl: lisinopril 20 MG tablet, Take 20 mg by mouth in the morning., Disp: , Rfl: metFORMIN (Glucophage) 500 MG tablet, Take 500 mg by mouth in the morning and 500 mg in the evening. Take with meals., Disp: , Rfl: amitriptyline (Elavil) 50 MG tablet, Take 50 mg by mouth at bedtime. (Patient not taking: Reported on 09/10/2024), Disp: , Rfl: levothyroxine (Synthroid, Levoxyl) 137 MCG tablet, Take 137 mcg by mouth in the morning. (Patient not taking: Reported on 09/10/2024), Disp: , Rfl: methylPREDNISolone (Medrol Dospak) 4 MG tablets, Take 1 tablet (4 mg) by mouth 1 (one) time for 1 dose Follow schedule on package instructions, Disp: 1 each, Rfl: 0 Tirzepatide (Mounjaro) 2.5 MG/0.5ML solution pen-injector, Inject under the skin. (Patient not taking: Reported on 09/10/2024), Disp: , Rfl: Review of systems: Constitutional: Denies fever, chills, nausea, vomiting GI: Denies abdominal pain, cramping, loose stool, gastric ulcers Musculoskeletal: Denies low back pain, knee pain, systemic arthritis Neurologic: Denies burning, tingling, transient paralysis OBJECTIVE Physical Examination: DERM: Positive hair growth to b/l feet with good skin turgor noted. Negative openings in skin VASC: DP /PT were palpable bilateral. Capillary refill time < 3 seconds Digits 1-5 bilateral NEURO: New [place] Lupe 5.07 monofilament was intact B/L. Vibratory sensation was intact B/L Musculoskeletal: Muscle strength was +5 over 5 all intrinsic and extrinsic muscles tested. There is significant pain with direct palpation of the medial band of the plantar fascia left foot. Mild pain throughout the course of the plantar fascia. No palpable deficits or ecchymosis noted within the plantar fascial band. There is no pain with lateral compression of the heel. Patient has a mild gastrocnemius-soleus equinus with mild tenderness noted at the level of the Achilles tendon. No palpable deficits noted within the Achilles tendon. No pain with range of motion of the ankle or subtalar joint. Radiographs: AP/MO/LAT: Diagnostic ultrasound: Diagnostic ultrasound 12 megahertz linear probe increased thickness of the plantar fascia greater than 4 mm. Small spur noted at site 4 of the calcaneus left foot. ASSESSMENT 1. Plantar fasciitis 2. Calcaneal spur, left foot 3. Gastrocnemius equinus of left lower extremity PLAN The patient was educated on the etiology of plantar fasciitis left foot. They were instructed in detail on stretching on a regular basis. They are also instructed on icing the plantar fascia on a regular basis as well. I dispensed a night splint to be worn to help provide passive stretch to the plantar fascial band. The patient was given injection consisting of 1 cc of 2% lidocaine plain and 1 cc of Kenalog 10 via ultrasonic guidance into the medial and central bands of the plantar fascia. Ultrasound was necessary to ensure exact placement into the medial and central bands of the plantar fascia and avoid injection into the plantar fat pad. I am also recommending custom molded orthotic devices. Patient was digitally scan today for custom-molded orthotic devices. Care was taken to place the subtalar joint in neutral position. The patient was informed that the orthotics will take 3 weeks to arrive from the laboratory. A plastic pre-fabricated static Ankle-Foot Orthosis ([id number]) was dispensed and fitted at this visit. The device will be utilized for the next six to eight weeks. The function of this device is to serve as an anti-contracture device of the plantar fascia and Achilles tendon and to restrict and limit motion and help reduce excessive stress and strain to the plantar fascia and Achilles tendon. The goals of this therapy are to; 1.) To reduce the pain and symptoms of post-static dyskinesia, 2.) Prevent yoo-dbetbo-wvbgafe contracture of the Achilles tendon. 3.) Provide static stretch of the Achilles tendon, 4.) Reduce plantar fasciitis. The patient states that the device is comfortable when applied at this time. The patient was shown and told in detail how to properly wear and care for the device. Written instructions and warranty information were given along with the list of the current Durable Medical Equipment Supplier Guidelines. MANUEL Wasserman documented in this encounter [facility] 09-26-2023 Evaluation note Encounter Date Diagnosis Assessment Notes Aug, Type 2 diabetes mellitus with hyperglycemia , without long-term current use of insulin (ICD-10 - E11.65) [facility] Other 11-07-2023 Evaluation note* Encounter Date Diagnosis Assessment Notes Treatment Notes Treatment Clinical Notes Jun, Other iron deficiency anemia (ICD-10 - D50.8) [facility] Other 10-31-2023 Evaluation note* Encounter Date Diagnosis Assessment Notes Treatment Notes Treatment Clinical Notes May, Type 2 diabetes mellitus with hyperglycemia, without long-term current use of insulin (ICD-10 - E11.65) [facility] Other 10-30-2023 Evaluation note* Encounter Date Diagnosis Assessment Notes Treatment Notes Treatment Clinical Notes May, Type 2 diabetes mellitus with hyperglycemia, without long-term current use of insulin (ICD-10 - E11.65) [facility] Other 10-17-2023 Evaluation note* Encounter Date Diagnosis Assessment Notes Treatment Notes Treatment Clinical Notes May, Other iron deficiency anemia (ICD-10 - D50.8) obtain labs. recheck due to fatigue May, Type 2 diabetes mellitus with hyperglycemia, without long-term current use of insulin (ICD-10 - E11.65) Due for A1C will reach out to [facility] for zuly. Presently it is covered, but her glucose of 220 indicates dose increase. Will sent paperwork for PA again. [facility] Other 10-03-2023 Evaluation note* Encounter Date Diagnosis Assessment Notes Treatment Notes Treatment Clinical Notes May, Type 2 diabetes mellitus with hyperglycemia, without long-term current use of insulin (ICD-10 - E11.65) [facility] Other 07-11-2023 Evaluation + Plan note Diagnostic Tests Pending * T3 Free 03/08/23 [facility]06-01-2023 History general Narrative - Reported* Type Description Date Medical History DM Medical History hypothyroid Medical History Anemia Surgical History C SECTION X's 2 Surgical History Left Oophorectomy 01/2023 Hospitalization History SEE ABOVE SURGERY [facility] Other 03-12-2021 NotePatient Outreach ([facility]OV[facility]) APRYL DOWNS ([id number]) 1980 F Date Time Provider Department 11/07/20 [facility] UP During your visit today, we recorded the following information about you: Allergies As of Date: 11/07/2020 Noted Allergy Reaction OXYCODONE-ACETAMINOPHEN 09/09/2020 2 - Rash Comments: Has tolerated norco in the past Date Reviewed: 10/03/2020 Reviewed by: Bharti Lorenz (Carmelita) CARMELITA Zavala - Fully Assessed Order(s):SARS-COVID VACCINE 1ST DOSE APPT [[id number]] Order #: [id number] FUTURE Prescriptions as of 11/07/2020 Sig: METFORMIN [...] Heart murmur [R01.1] 10/02/2020 More... Patient is Quaker [Z78.9] 10/02/2020 More... Encounter Status:Closed by HODAN CAPPS on 11/10/20[facility] Evaluation + Plan note No data available for this section [facility] note[facility] InformationNort [employer] Other Evaluation note* Diagnosis Onset Date Resolution Status Iron deficiency anemia acute Left foot pain acute Type 2 diabetes mellitus with hyperglycemia [facility] Work Phone: Evaluation note* Diagnosis Onset Date Resolution Status Iron deficiency anemia acute Left foot pain acute Type 2 diabetes mellitus with hyperglycemia acute Type 2 diabetes mellitus with hyperglycemia acute [facility] Work Phone: Evaluation note* Diagnosis Calcaneal spur, left foot- Primary Plantar fasciitis Plantar fascial fibromatosis Gastrocnemius equinus of left lower extremity documented in this encounter [facility] HealthcareEvaluation note* Diagnosis Gastrocnemius equinus of left lower extremity- Primary Plantar fasciitis Plantar fascial fibromatosis Calcaneal spur, left foot documented in this encounter [facility] HealthcareEvaluation noteNo assessment information [facility] Work Phone: Hospital Discharge instructions No data available for this section [facility] No data available for this section [facility] Summary Purpose Family History Relationship Condition Age at Onset Recorded Date/T elana father Diabetes mellitus Unknown Malignant neoplasm Unknown Unknown Malignant neoplasm of esophagus Unknown mother Diabetes mellitus Unknown Heart disease Unknown Hypertension Unknown sister Malignant neoplasm Unknown Advance Directives Advance Directive Response Recorded Date/ Time Advance Directives No November 23 9:35am Advance Directive Response Recorded Date/ Time Advance Directives No November 23 8:35am Hospital Course Note MR#: [id number] [facility] Pt. Name: Apryl Downs Admitted: 03/31/2019 [...] is a 38-year-old female, who presented to [facility] with complaints of left-sided weakness and facial droop. The patient states she had driven herself to the emergency department. The patient states that she was at work when she st (more content not included)... Note HNO ID: [id number] Author: Anjali Muñoz Service: Gynecology Author Type: Physician Type: Brief Op Note Filed: 10/03/2020 8:14 AM Note Text: BRIEF OPERATIVE / PROCEDURE NOTE LOG ID: [id number] SURGERY/PROCEDURE DATE: 10/03/2020 INCISION/PROCEDURE START TIME: 7:57 AM INCISION CLOSE/PROCEDURE END TIME: 8:07 AM SURGEON(S)/PROCEDURALIST(S) AND ROLLER SHOP SUPERVISOR(S): Surgeon(s) and Role: * Ayha Muñoz - Primary No Additional Staff SURGERY/PROCEDURE(S): [...] the case. Procedure Findings Note HNO ID: [id number] Author: Anjali Muñoz Service: Gynecology Author Type: Physician Type: Brief Op Note Filed: 10/03/2020 8:14 AM Note Text: BRIEF OPERATIVE / PROCEDURE NOTE LOG ID: [id number] SURGERY/PROCEDURE DATE: 10/03/2020 INCISION/PROCEDURE START TIME: 7:57 AM INCISION CLOSE/PROCEDURE END TIME: 8:07 AM SURGEON(S)/PROCEDURALIST(S) AND ROLLER SHOP SUPERVISOR(S): Surgeon(s) and Role: * Ayah Muñoz - [...] iron deficienc y anemia (D50.8) Referral Organization [facility] emilee Referring Provider First Name Amanda Referring Provider Last Name Khalida Referring Provider Specialty [facility] Referred Organization [facility] Referred Address [address], [place],[address] Referred Provider Specialty Hematology Referral Priority Routine Chief Complaint and Reason for Visit Chief Complaint Amb Documentation follow up Reason for Visit Iron deficiency anem ia Left foot pain Type 2 diabetes mellitus with hyperglycemia Chief Complaint follow up Discuss Diabetes Reason for Visit Iron deficiency anem ia Left foot pain Type 2 diabetes mellitus with hyperglycemia Type 2 diabetes mellitus with hyperglycemia Chief Complaint Admit Date Amb Documentation July 06, 2024 1 0:25am migraines October 04, 2024 1 1:26am Additional Source Comments INFORMATION SOURCE (unrecogn ized section and content) DATE CREATED AUTHOR 04/28/2019 [facility] DATE CREATED AUTHOR AUTHOR'S ORGANIZ ATION 10/07/2020 [facility] DATE CREATED AUTHOR AUTHOR'S ORGANIZ ATION 10/07/2020 [facility] DATE CREATED AUTHOR AUTHOR'S ORGANIZ ATION 10/03/2021 [facility] DATE CREATED AUTHOR AUTHOR'S ORGANIZ ATION 12/15/2022 [facility] DATE CREATED AUTHOR AUTHOR'S ORGANIZ ATION 08/25/2023 [facility] DATE CREATED AUTHOR AUTHOR'S ORGANIZ ATION 03/21/2024 [facility] DATE CREATED AUTHOR AUTHOR'S ORGANIZ ATION 09/25/2024 [facility] EPIC (unrecognized sect ion and content) No Status Records FoundNo Status Records Found Care Team (unrecognized sect ion and content) Team Status: Active Member Role Status Dates Amanda Villafana MD Primary Care Provider Active Team Status: Active Member Role Status Dates Amanda Villafana MD Primary Care Provider Active Start: July 06, 2024 Dona Irvin CMA Attending Provider Active Start: July 06, 2024 Team Status: Inactive Member Role Status Dates Amanda Villafana MD Primary Care Provide r, Attending Provider Active Start: October 04, 2024 End: October 04, 2024 Team Status: Active Member Role Status [...] Provider Active St art: March 14, 2024 Salesman/Owner Relationship Specialty Start Date End Date Amanda Villafana MD [address] [place] [id number] PCP - General Family Medicine 09/10/24 Samanta Cota NP [address] [place] [address] Nurse Practitioner Family Medicine 03/28/24 Salesman/Owner Relationship Specialty Start Date End Date Amanda Villafana MD [address] [place] [facility] [id number] PCP - General Family Medicine 09/10/24 Samanta Cota, GLORIA [address] [place] [phone] Nurse Practitioner Family Medicine 03/28/24 Salesman/Owner Relationship Specialty Start Date End Date Amanda Villafana MD [address] [place] [facility] [phone] PCP - General Family Medicine 09/10/24 Samanta Cota NP [address] [place] [phone] Nurse Practitioner Family Medicine 03/28/24 Salesman/Owner Relationship Specialty Start Date End Date Amanda Villafana MD [address] [place] [facility] [phone] PCP - General Family Medicine 09/10/24 Samanta Cota NP [address] [place] [phone] Nurse Practitioner Family Medicine 03/28/24 Team Status: Active Member Role Status Dates Amanda Villafana MD Primary Care Provider Active Start: July 06, 2024 Dona Irvin CMA Attending Provider Active Start: July 06, 2024 Team Status: Inactive Member Role Status Dates Amanda Villafana MD Primary Care Provide r, Attending Provider Active Start: October 04, 2024 End: October 04, 2024 REASON FOR VISIT (unrecogniz ed section and content) Reason Comments Plantar Fasciitis F/U LT foot plantar fasciitis inj x1 Reason Comments Heel Pain LT heel pain [id number] month Follow up Goals (unrecognized section and content) Goals [...] BE BASED ON THE PRIMARY CLINICAL RECORDS. [facility] [employer] [facility]. provides no warranty or guarantee of the accuracy or completeness of information in this document.
[2024-10-31] MEDS: METOCLOPRAMIDE HCL 10 MG/2 ML VIAL IVP (13:09)
[2024-10-31] MEDS: DIPHENHYDRAMINE HCL 50 MG/ML VIAL 25 MG IVP (13:09)
[2024-10-31] MEDS: KETOROLAC TROMETHAMINE 30 MG/ML VIAL IVP (13:09)
[2024-10-31] MEDS: 0.9 % SODIUM CHLORIDE 1,000 ML 1000 ML IV (13:10)
--- NOTE | 2024-10-31 13:12 | ED.GENADUL1 ---
HPI HPI - General Adult General Chief complaint: Headache Stated complaint: MIGRAINE Time Seen by Provider: 10/31/24 12:21 Source: patient Mode of arrival: walk-in Limitations: no limitations History of Present Illness HPI narrative: Patient presents to ED complaining of migraine headache. She has a history of migraines. She had imaging back in 2019 when these first started which was negative at that time. She has managed by her family doctor but has not seen a neurologist or migraine specialist. She reports sensitivity to light and sound as well as some nausea vomiting. She said the pain is around her eyes and in the top of her head which is typical for her migraines. No neurological deficits. She said she tried her rescue medication at home but it just was not working today. She has no visual changes, she denies any recent illness or fevers. No other complaints at this time. Related Data Home Medications ?Medication ?Instructions ?Recorded ?Confirmed levothyroxine 137 mcg tablet 137 mcg PO .aday 02/10/23 07/05/24 tirzepatide 2.5 mg/0.5 mL 15 mg subcut QWEEK 02/10/23 07/05/24 subcutaneous pen injector (Geeuncontrerasro) metformin 750 mg tablet,extended 750 mg PO DAILY 08/06/23 07/05/24 release 24 hr lisinopril 20 mg tablet 20 mg PO QDAY 07/05/24 07/05/24 Previous Rx's ?Medication ?Instructions ?Recorded lisinopril 20 mg tablet 20 mg PO DAILY #30 tabs 07/05/24 jaehyhlamq-jprqyerioqbuj-mfrnxwzj 1 cap PO Q8H PRN pain #20 caps 10/31/24 50 mg-300 mg-40 mg capsule (Fioricet) Allergies Allergy/AdvReac Type Severity Reaction Status Date / Time oxycodone (From Percocet) AdvReac Intermediate Rash Verified 10/31/24 12:32 Opioid HPI Opioid Management Most Recent Opioid Data: Last Pain Scale 3 07/05/24 16:34 07/05/24 Review of Systems ROS Narrative ROS negative less otherwise stated above in HPI PFSH PFSH Medical History (Updated 10/31/24 @ 14:15 by Corazon Vigil DO) Hypothyroidism ?E03.9 - Hypothyroidism, unspecified (ICD-10) Familial hyperthyroidism ?E05.80 - Other thyrotoxicosis without thyrotoxic crisis or storm (ICD-10) HTN (hypertension) ?I10 - Essential (primary) hypertension (ICD-10) Diabetes ?E11.9 - Type 2 diabetes mellitus without complications (ICD-10) Family History (Updated 02/10/23 @ 04:43 by Jazmine Doyle) Mother Family history of COPD (chronic obstructive pulmonary disease) Family history of diabetes mellitus Family history of hypertension Sister Family history of cancer Family history of diabetes mellitus Father Family history of cancer Social History (Updated 02/10/23 @ 04:44 by Jazmine Doyle) Within the past year, how often did you have a drink containing alcohol: never Within the past year, how often did you have six or more drinks on one occasion: never Score interpretation: A score less than 3 is consistent with normal alcohol consumption. 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 Known occupational exposures/hazards: No Highest level of school completed/degree received: GED or equivalent Do you want help with school or training: No Are you now , , , , never or living with a partner: In a typical week, how many times do you talk on the telephone with family, friends, or neighbors: 3 or more times per week How often do you get together with friends or relatives: 3 or more times per week How often do you attend anabaptist or hinduism services: never Do you belong to any clubs or organizations such as anabaptist groups unions, fraternal or athletic groups, or school groups: no Total score: 1 Score interpretation: A score of less than or equal to 1 indicates the most socially isolated. Little interest or pleasure in doing things: not at all Feeling down, depressed, or hopeless: not at all Feel stressed/tense/nervous/anxious/difficulty sleeping: not at all Due to disability, difficulty making decisions: No Do you think of yourself as: straight/heterosexual Gender Identity: female Exam Narrative Exam Narrative: General: alert, no acute distress Cardiovascular: regular rate and rhythm, normal peripheral perfusion. Respiratory: Lungs CTA, respirations non labored. Extremities: no deformity, no trauma. Neurological: oriented x 4, LOC appropriate for age. No acute neurological deficits Constitutional Vital Signs, click to edit/add: Last Vital Signs Temp 99 F 10/31/24 12:25 Pulse 83 10/31/24 12:25 Resp 18 10/31/24 12:25 BP 164/85 H 10/31/24 12:25 Pulse Ox 99 10/31/24 12:25 O2 Del Method Room Air 10/31/24 12:25 Course Vital Signs Vital signs: Vital Signs Temperature 99 F 10/31/24 12:25 Pulse Rate 83 10/31/24 12:25 Respiratory Rate 18 10/31/24 12:25 Blood Pressure 164/85 H 10/31/24 12:25 Pulse Oximetry 99 10/31/24 12:25 Oxygen Delivery Method Room Air 10/31/24 12:25 Temperature 99 F 10/31/24 12:25 Pulse Rate 83 10/31/24 12:25 Respiratory Rate 18 10/31/24 12:25 Blood Pressure 164/85 H 10/31/24 12:25 Pulse Oximetry 99 10/31/24 12:25 Oxygen Delivery Method Room Air 10/31/24 12:25 Medical Decision Making MDM Narrative Medical decision making narrative: Patient is feeling much better after IV fluids and medication. Her migraine is down to a 4. She is able to open her eyes without any pain anymore. I did tell her she should get in with a neurologist and I referred her to Dr. Meyers. I wrote her for some Fioricet for home as needed for pain. Return to ED if worsening symptoms otherwise follow-up with family doctor and or neurology. Patient comfortable with care plan for home. Vital signs stable and labs are nonacute. Differential Diagnosis Differential Diagnosis: Migraine, headache, viral syndrome Lab Data Lab results reviewed: Yes I reviewed the patient's lab results Labs: Lab Results 10/31/24 Range/Units 13:15 WBC 6.7 (4.0-11.0) 10^3/uL RBC 4.83 (4.20-5.40) 10^6/uL Hgb 13.9 (12.0-16.0) g/dL Hct 41.0 (36.0-48.0) % MCV 84.9 (81.0-99.0) fL MCH 28.8 (26.7-34.0) pg MCHC 33.9 (29.9-35.2) g/dL RDW 13.6 (11.0-15.0) % Plt Count 235 (150-450) 10^3/uL MPV 10.2 (9.5-13.5) fL Neut % (Auto) 76.7 H (43.0-75.0) % Lymph % (Auto) 17.4 L (20.5-60.0) % [place] % (Auto) 5.2 (1.7-12.0) % Eos % (Auto) 0.3 L (0.9-7.0) % Baso % (Auto) 0.3 (0.2-2.0) % Neut # (Auto) 5.2 (1.4-6.5) 10^3/uL Lymph # (Auto) 1.2 (1.2-3.8) 10^3/uL [place] # (Auto) 0.4 (0.3-0.8) 10^3/uL Eos # (Auto) 0.0 (0.0-0.7) 10^3/uL Baso # (Auto) 0.0 (0.0-0.1) 10^3/uL Abs Immat Gran (auto) 0.01 (0.00-0.03) 10^3/uL Imm/Tot Granulo (auto) 0.1 (0.0-0.5) % Sodium 137 (136-145) mmol/L Potassium 4.0 (3.5-5.1) mmol/L Chloride 104 (98-107) mmol/L Carbon Dioxide 24.4 (21.0-32.0) mmol/L Anion Gap 12.6 BUN 8.0 (7.0-18.0) mg/dL Creatinine 0.76 (0.55-1.02) mg/dL Est GFR ( Amer) >60 (>=60 mL/min/1.73m^2) Est GFR (Non-Af Amer) >60 (>=60 mL/min/1.73m^2) BUN/Creatinine Ratio 10.5 Glucose 126 H (74-106) mg/dL Calcium 8.6 (8.5-10.1) mg/dL Total Bilirubin 0.6 (0.2-1.0) mg/dL AST 17 (15-37) U/L ALT 22 (14-59) U/L Alkaline Phosphatase 67 (46-116) U/L Total Protein 8.0 (6.4-8.2) g/dL Albumin 3.8 (3.4-5.0) g/dL Globulin 4.2 g/dL Albumin/Globulin Ratio 0.9 Discharge Plan Discharge Chief Complaint: Headache Clinical Impression: Migraine Patient Disposition: Home, Self-Care Time of Disposition Decision: 14:15 Condition: Good Mode of Transportation: Private Vehicle Prescriptions / Home Meds: New rfvpttyaqe-cnrutjutoxnpv-vtif [Fioricet] 50-300-40 mg capsule 1 cap PO Q8H PRN (Reason: pain) Qty: 20 0RF No Action levothyroxine 137 mcg tablet 137 mcg PO .aday Mounjaro 2.5 mg/0.5 mL pen injector 15 mg SUBCUT QWEEK metformin 750 mg tablet extended release 24 hr 750 mg PO DAILY lisinopril 20 mg tablet 20 mg PO QDAY Patient Comments: Pt has not been taking. She stopped it herself. lisinopril 20 mg tablet 20 mg PO DAILY Qty: 30 0RF Print Language: Kazakh Instructions: Migraine Headache (ED) Referrals: Emi Gaxiola MD [Primary Care Provider] - 1 week Toni Meyers MD [Physician] - 1 week
[2024-10-31 13:24] LABS: Basophils Percent Auto 0.3 % (0.2-2.0); Eosinophils Percent Auto 0.3 % (0.9-7.0); Hemoglobin 13.9 g/dL (12.0-16.0); Immature Granulocytes Abs Auto 0.01 10^3/uL (0.00-0.03); Immature Granulocytes Pct Auto 0.1 % (0.0-0.5); Lymphocytes Absolute Auto 1.2 10^3/uL (1.2-3.8); Lymphocytes Percent Auto 17.4 % (20.5-60.0); Mean Corpuscular HGB Conc 33.9 g/dL (29.9-35.2); Mean Corpuscular Hemoglobin 28.8 pg (26.7-34.0); Mean Corpuscular Volume 84.9 fL (81.0-99.0); Mean Platelet Volume 10.2 fL (9.5-13.5); Monocytes Absolute Auto 0.4 10^3/uL (0.3-0.8); Monocytes Percent Auto 5.2 % (1.7-12.0); Neutrophils Absolute Auto 5.2 10^3/uL (1.4-6.5); Neutrophils Percent Auto 76.7 % (43.0-75.0); Platelet Count 235 10^3/uL (150-450); Red Blood Count 4.83 10^6/uL (4.20-5.40); Red Cell Distribution Width 13.6 % (11.0-15.0); White Blood Count 6.7 10^3/uL (4.0-11.0)
[2024-10-31 13:46] LABS: Alanine Aminotransferase 22 U/L (14-59); Albumin Globulin Ratio 0.9; Albumin Level 3.8 g/dL (3.4-5.0); Alkaline Phosphatase 67 U/L (46-116); Anion Gap 12.6; Aspartate Amino Transferase 17 U/L (15-37); BUN Creatinine Ratio 10.5; Bilirubin Total 0.6 mg/dL (0.2-1.0); Calcium 8.6 mg/dL (8.5-10.1); Carbon Dioxide 24.4 mmol/L (21.0-32.0); Chloride 104 mmol/L (98-107); Estimated GFR (African America >60 (>=60 mL/min/1.73m^2); Estimated GFR (Non-African Ame >60 (>=60 mL/min/1.73m^2); Globulin 4.2 g/dL; Glucose 126 mg/dL (74-106); Sodium 137 mmol/L (136-145)
== END 2024-10-31 14:30 | disposition home or self-care (01) ==
PROVIDERS: Emergency Provider Emergency Medicine; PCP Family Medicine
DX: G43.909 Migraine, unspecified, not intractable, without status migrainosus (principal); Z87.891 Personal history of nicotine dependence
CPT/HCPCS: 36415; 80053; 85025; 96361; 96374; 96375; 99284; J1200; J1885; J2765

== ENCOUNTER 2024-12-24 13:06 | Outpatient (OUT) | payer OTHER, SELFPAY ==
--- NOTE | 2024-12-24 13:20 | ECG_ITS ---
[facility] Test Date: 2024-12-24 Pat Name: APRYL DOWNS Department: Room: - Gender: Female Control Analyst: : 1980 Requested By: [id number] Order Number: [id number] Reading MD: CESAR PINEDA M.D. Measurements Intervals [place] Rate: 69 P: 36 NC: 121 QRS: 44 QRSD: 88 T: 47 QT: 398 QTc: 429 Interpretive Statements SINUS RHYTHM Normal ECG Compared to ECG 08/13/2021 17:51:10 ST (T wave) deviation no longer present Possible ischemia no longer present Electronically Signed On 12-24-2024 16:12:07 EDT by CESAR PINEDA M.D.
== END 2024-12-24 13:07 | disposition home or self-care (01) ==
LOC: CARD 13:07
PROVIDERS: PCP Family Medicine; Visit Provider Podiatrist Foot & Ankle Surgery
DX: Z01.810 Encounter for preprocedural cardiovascular examination (principal); Z01.818 Encounter for other preprocedural examination
CPT/HCPCS: 93005

== ENCOUNTER 2025-01-02 14:47 | Outpatient (OUT) | payer OTHER, SELFPAY ==
--- NOTE | 2025-01-02 15:15 | XR_ITS ---
The [address] [address] Patient Name: APRYL DOWNS MRN: [id number] date: 1980 Sex: F Assigned Patient Location: LAB Current Patient Location: LAB Accession/Order Number: [id number] Exam Date: 01/02/2025 15:35 Report Date: 01/02/2025 15:36 At the request of: BRAULIO SALOMON MD Procedure: XR foot LT min 3V LEFT FOOT - 3 views CLINICAL HISTORY: Hallux Valgus Of Left Foot COMPARISON: None FINDINGS: No focal soft tissue abnormality. No acute bony process is seen. Joint spaces appear maintained. No bony erosions. Plantar spurring. XR/XR foot LT min 3V IMPRESSION: NO ACUTE BONY PROCESS. PLANTAR SPURRING. Impression dictated by: Alan Rowan Jr., D.OGianna 01/02/2025 3:36 PM Dictation Location: [place] [address] Electronically authenticated by: [id number] Y Date: 01/02/2025 15:36
[2025-01-02 15:20] LABS: Basophils Percent Auto 0.6 % (0.2-2.0); Eosinophils Absolute Auto 0.1 10^3/uL (0.0-0.7); Eosinophils Percent Auto 1.6 % (0.9-7.0); Hematocrit 37.9 % (36.0-48.0); Hemoglobin 12.6 g/dL (12.0-16.0); Immature Granulocytes Abs Auto 0.02 10^3/uL (0.00-0.03); Immature Granulocytes Pct Auto 0.3 % (0.0-0.5); Lymphocytes Absolute Auto 1.7 10^3/uL (1.2-3.8); Lymphocytes Percent Auto 23.4 % (20.5-60.0); Mean Corpuscular HGB Conc 33.2 g/dL (29.9-35.2); Mean Corpuscular Hemoglobin 28.7 pg (26.7-34.0); Mean Corpuscular Volume 86.3 fL (81.0-99.0); Mean Platelet Volume 10.1 fL (9.5-13.5); Monocytes Absolute Auto 0.7 10^3/uL (0.3-0.8); Monocytes Percent Auto 9.2 % (1.7-12.0); Neutrophils Absolute Auto 4.6 10^3/uL (1.4-6.5); Neutrophils Percent Auto 64.9 % (43.0-75.0); Platelet Count 263 10^3/uL (150-450); Red Blood Count 4.39 10^6/uL (4.20-5.40); Red Cell Distribution Width 13.9 % (11.0-15.0)
[2025-01-02 15:39] LABS: Anion Gap 7.9; BUN Creatinine Ratio 19.3; Calcium 8.7 mg/dL (8.5-10.1); Carbon Dioxide 32.2 mmol/L (21.0-32.0); Chloride 97 mmol/L (98-107); Estimated GFR (African America >60 (>=60 mL/min/1.73m^2); Estimated GFR (Non-African Ame >60 (>=60 mL/min/1.73m^2); Glucose 132 mg/dL (74-106); Potassium 4.1 mmol/L (3.5-5.1); Sodium 133 mmol/L (136-145)
== END 2025-01-02 14:48 | disposition home or self-care (01) ==
LOC: LAB 14:51
PROVIDERS: PCP Family Medicine; Visit Provider Podiatrist Foot & Ankle Surgery
DX: Z01.812 Encounter for preprocedural laboratory examination (principal); Z01.818 Encounter for other preprocedural examination; M20.12 Hallux valgus (acquired), left foot
CPT/HCPCS: 36415; 73630; 80048

== ENCOUNTER 2025-01-06 15:32 | Emergency (ER) | payer OTHER, SELFPAY ==
[2025-01-06 15:37] VITALS: BP 138/72; PULSE 66; TEMP 36.6; O2SAT 97; BMI 37.8
--- OUTSIDE RECORDS SUMMARY | 2025-01-06 15:42 | XMS_ITS | CCD ---
Author Organization [facility] Care Team Providers Care Computer Forensics Technician Name Role Phone UNKNOWN, PROVIDER Admitting Unavailable LONDON SALEH Attending Unavailable UNKNOWN, PHYSICIAN Referring Unavailable UNKNOWN, PHYSICIAN Primary Care Unavailable KELLY SALAS CNP Primary Care Physician Beverly Childers Unavailable Unavailable AICHHOLZ, WOOD TANK ERECTOR SAMANTA Primary Care Unavailable BOB ., CECI Admitting Unavailable CECI LEMON Attending Unavailable BOB .CECI Consulting Unavailable AICHHOLZ, WOOD TANK ERECTOR SAMANTA Primary Care Unavailable TRACEY TERRY Admitting Unavailable TRACEY TERRY Attending Unavailable TRACEY TERRY Consulting Unavailable AICHHOLZ, WOOD TANK ERECTOR SAMANTA Admitting Unavailable AICHHOLZ, WOOD TANK ERECTOR SAMANTA Attending Unavailable AICHHOLZ, WOOD TANK ERECTOR SAMANTA Primary Care Unavailable AICHHOLZ, WOOD TANK ERECTOR SAMANTA Admitting Unavailable AICHHOLZ, WOOD TANK ERECTOR SAMANTA Attending Unavailable AICHHOLZ, WOOD TANK ERECTOR SAMANTA Primary Care Unavailable AICHHOLZ, WOOD TANK ERECTOR SAMANTA Consulting Unavailable DR MANJU CHAMPAGNE Consulting Unavailable AICHHOLZ, WOOD TANK ERECTOR SAMANTA Admitting Unavailable AICHHOLZ, WOOD TANK ERECTOR SAMANTA Attending Unavailable AICHHOLZ, WOOD TANK ERECTOR SAMANTA Primary Care Unavailable AICHHOLZ, WOOD TANK ERECTOR SAMANTA Consulting Unavailable AICHHOLZ, WOOD TANK ERECTOR SAMANTA Admitting Unavailable AICHHOLZ, WOOD TANK ERECTOR SAMANTA Attending Unavailable AICHHOLZ, WOOD TANK ERECTOR SAMANTA Primary Care Unavailable AICHHOLZ, WOOD TANK ERECTOR SAMANTA Consulting Unavailable AICHHOLZ, WOOD TANK ERECTOR SAMANTA Admitting Unavailable AICHHOLZ, WOOD TANK ERECTOR SAMANTA Attending Unavailable AICHHOLZ, WOOD TANK ERECTOR SAMANTA Primary Care Unavailable AICHHOLZ, WOOD TANK ERECTOR SAMANTA Consulting Unavailable AICHHOLZ, SAMANTA J Primary Care Physician [phone] Amanda Villafana Unavailable SAMANTA COTA Admitting Unavailable SAMANTA COTA Attending Unavailable Mateo ALVA Attending Unavailable AMANDA VILLAFANA Referring Unavailable Beata PROCESS ASSISTANT, Samanta Unavailable Amanda Villafana MD Primary Care Provider [phone] Amanda Villafana MD Primary Care Provider EARNEST SALOMON Attending Unavailable EARNEST SALOMON Attending Unavailable EARNEST SALOMON Attending Unavailable DOLEDWIN, EARNEST Pearson Attending Unavailable EARNEST SALOMON Attending Unavailable Allergies Allergy Classification Reported Allergen(s) Allergy Type Date of Onset Reaction(s) Facility (2 sources) Acetaminophen / oxyCODONE Drug Allergy 9 [place] Rep[facility] (14 sources) Acetaminophen / oxyCODONE; Translations: [acetaminophen-ox ycodone] Drug Allergy Eruption of skin (disorder), [facility] (1 source) Acetaminophen Drug Allergy 1 [facility] Repository (3 sources) Acetaminophen Drug Allergy 4 [facility] (3 sources) oxyCODONE Drug Allergy 4 [facility] (14 sources) Acetaminophen / oxyCODONE Drug Allergy 1 [...] for headache, 15 tab(s), Refill(s) 0, [id number], 60, cm, 04/04/21 17:48:00 EDT, Height/Length Dosing, 94.9, kg, 04/04/21 17:48:00 EDT, Weight Dosing Start Date: 04/04/21 Status: Ordered [id number] 200 actuat albuterol 0.09 mg/actuat metered dose inhaler (4 sources) beta2-Adrenergic Agonist Start: 03-19-2024 End: 07-10-2024 take 1 puff(s) by inhalation every four to six hours as needed for wheezing Albuterol Sulfate 90 mcg/actuation HFA aerosol inhaler Active 2 PUFF INHALATION EVERY 4-6 HOURS as needed for shortness of breath or wheezing 8.5 July 10, 2024 10:46am amitriptyline hydrochloride 50 mg oral tablet (19 sources) Tricyclic Antidepressant Start: 02-02-2023 take 1 tablet by mouth at bedtime amitriptyline (Elavil) 50 MG tablet Take 50 mg by mouth at bedtime. 02/02/2023 Active Start: 02-06-2021 take 1 tablet by chiqui th once daily at bedtime Elavil 25 mg Tab 25 mg = 1 tab(s), Oral, Once a day (at bedtime), # 30 tab(s), Refills(s) 0, Pharmacy: [facility] #[id number], 60, cm, 02/04/21 9:34:00 EDT, [...] Daily, # 90 tab(s), Refills(s) 0, Pharmacy: [facility]/pharm[facility] #[id number], 60, cm, 02/04/21 9:34:00 EDT, Height/Length Dosing, 99.3, kg, 02/04/21 6:14:00 EDT, Weight Dosing Start Date: 02/06/21 Status: Ordered Start: 02-06-2021 take 1 tablet by chiqui th once daily aspirin 81 mg Oral EC Tab 81 mg = 1 tab(s), Oral, Daily, # 90 tab(s), Refills(s) 0, [id number], 60, cm, 02/04/21 9:34:00 EDT, Height/Length Dosing, 99.3, kg, 02/04/21 6:14:00 EDT, Weight Dosing Start Date: 02/06/21 Status: Ordered atorvastatin 40 mg oral tablet (4 sources) HMG-CoA Reductase Inhibitor Start: 02-06-2021 take 1 tablet by mouth once daily Lipitor 40 mg Tab 40 mg = 1 tab(s), Oral, Daily, # 90 tab(s), Refills(s) 0, Pharmacy: [facility]/pharmacy #[id number], 60, cm, 02/04/21 9:34:00 EDT, [...] Daily, # 90 tab(s), Refills(s) 0, Pharmacy: [facility]/pharmacy #[id number], 160, cm, 04/06/19 13:58:00 EDT, Height/Length Measured, 91.2, kg, 04/06/19 13:58:00 EDT, Weight Measured Start Date: 11/14/19 Status: Ordered take 1 capsule by mo [facility] once daily in the morning Levothyroxine Sodium 125 MCG 1 capsule in the morning on an empty stomach Orally Once a day Active lisinopril 20 mg oral tablet (20 sources) Angiotensin Converting Enzyme Inhibitor Start: 01-20-2023 End: 03-12-2024 take 1 tablet by mouth in the morning lisinopril 20 MG tablet Take 20 mg by mouth in the morning. 01/20/2023 Active 24 hr metFORMIN hydrochloride 750 mg [...] 09/25/20 Status: Ordered take 1 tablet by [facility] every twenty-four hours metFORMIN HCl ER [...] WEEK Tirzepatide (Mounjaro) 2.5 MG/0.5ML solution pen-injector (14 sources) Tirzepatide (Chiqui njaro) 2.5 MG/0.5ML solution [...] s of breath, 1 EA, Refill(s) 0, [facility]/pharmacy #[id number] Start Date: 02/26/19 Status: Ordered sulfamethoxazole 800 mg / trimethoprim [...] Classification Problem Date Documented Da te Episodic/Chronic Acquired foot deformities (4 sources) Hallux valgus (acquired), left foot; Translations: [Hallux valgus (acquired)] 12-04-2024 Chronic Asthma (4 sources) Asthma 11-09-2013 Chronic Deficiency and other anemia (14 sources) Iron deficiency anemia due to blood [...] 05-04-2011 11-09-2013 Chronic Disorders of lipid metabolism (20 sources) Endogenous hyperlipidemia; Translations: [Hypercholesterolem ia] Onset: [...] deficiency 01-05-2019 Chronic Other aftercare (1 source) residential (current) use of oral hypoglycemic drugs; Translations: [SIGNAL FITTER USE ORAL HYPOGLYCEMIC DX] Onset: 12-14-2022 Episodic Other aftercare (1 source) Other snf (current) drug therapy; Translations: [OTH HALFWAY CURRENT DRUG THERAPY] Onset: 12-14-2022 Episodic Other connective tissue disease (1 source) Neurological finding; Translations: [Other symptoms and signs involving the nervous system] Onset: 02-05-2022 Episodic Other connective tissue disease (3 sources) Foot pain; Translations: [Pain in left foot] 03-19-2024 Episodic Other connective tissue disease (2 sources) Pain in left foot; Translations: [Pain in limb] 03-19-2024 Episodic Other connective tissue disease (7 sources) Plantar fasciitis; Translations: [Plantar fascial fibromatosis] 09-10-2024 Episodic Other connective tissue disease (3 sources) Calcaneal spur of left foot; Translations: [Calcaneal spur, left foot] 09-10-2024 Episodic Other connective tissue disease (4 sources) Deformity of lower limb; Translations: [Contracture [...] [Cellulitis of umbilicus] 06-14-2024 Episodic Thyroid disorders (20 sources) Hypothyroidism; Translations: [Hypothyroidism, unspecified] Onset: 10-02-2020 11-09-2013 Chronic Transient cerebral ischemia (4 sources) Transient cerebral ischemic attack, unspecified; Translations: [TRANS CERBRAL ISCHEMIC ATTACK UNS] Onset: 02-15-2022 Chronic Unclassified (4 sources) Hoahaoism episcopal (episcopal/philosoph y) 08-23-2011 Urinary tract infections (1 source) Urinary tract infection, site not specified; Translations: [UTI SITE NOT SPECIFIED] Onset: 12-14-2022 Episodic Past or Other Problems Problem Classification Problem Date Documented Date Episodic/Chronic Diabetes or abnormal glucose tolerance complicating ; childbirth; or the puerperium (4 sources) Gestational diabetes mellitus, class A>2< Resolved: 07-28-2011 09-12-2011 Episodic E Codes: Unspecified (14 sources) Does pursue congregational activities; Translations: [Activity, other specified] Onset: 10-02-2020 03-11-2023 Episodic Heart valve disorders (20 sources) Heart murmur; Translations: [Systolic murmur] Onset: 10-02-2020 03-31-2019 Episodic Comment on above: new last week per pc p Other nervous system disorders (1 source) Paresthesia of skin; Translations: [PARESTHESIA OF SKIN] Onset: 02-17-2022 Episodic Other and delivery including normal (14 sources) Vaginal delivery; Translations: [Encounter for full-term uncomplicated delivery] Onset: 09-19-2020 03-11-2023 Episodic Results Test Name Value Interpretation Reference Range Facility ALL CBC WITH AUTO DIFFon BASOPHILS ABSOLUTE AUTO 0 [facility] Basophils/100 WBC (Bld) 0.6 % 0.2 - 2.0 % [facility] Eosinophils/100 WBC (Bld) 1.6 % 0.9 - 7.0 % [facility] Erythrocyte distribution width (RBC) [Ratio] 13.9 % 11.0 - 15.0 % [facility] Hematocrit (Bld) [Volume fraction] 37.9 % 36.0 - 48.0 % [facility] Hemoglobin (Bld) [Mass/Vol] 12.6 g/dL 12.0 - 16.0 g/dL [facility] IMMATURE GRANULOCYTES ABS AUTO 0.02 [facility] Immature granulocytes/100 WBC (Bld) 0.3 % 0.0 - 0.5 % [facility] LYMPHOCYTES ABSOLUTE AUTO 1.7 [facility] Lymphocytes/100 WBC (Bld) 23.4 % 20.5 - 60.0 % [facility] MCH (RBC) [Entitic mass] 28.7 pg 26.7 - 34.0 pg [facility] MCHC (RBC) [Mass/Vol] 33.2 g/dL 29.9 - 35.2 g/dL [facility] MCV (RBC) [Entitic vol] 86.3 fL 81.0 - 99.0 fL [facility] MONOCYTES ABSOLUTE AUTO 0.7 [facility] Monocytes/100 WBC (Bld) 9.2 % 1.7 - 12.0 % [facility] NEUTROPHILS ABSOLUTE AUTO 4.6 [facility] Neutrophils/100 WBC (Bld) 64.9 % 43.0 - 75.0 % [facility] Platelet mean volume (Bld) [Entitic vol] 10.1 fL 9.5 - 13.5 fL [facility] EO # 0.1 [facility] PLT 263 [facility] RBC 4.39 [facility] WBC 7 [facility] XR FOOT LT MIN 3Von 01-03-[address] [address] XRay Report Signed Patient: APRYL DOWNS MR#: [id number] : 1980 Acct:[id number] Age/Sex: 44 / F ADM Date: 01/02/25 Loc: LAB Attending Dr: EARNEST SALOMON M.D. Ordering Physician: EARNEST SALOMON M.D. Date of Service: 01/02/25 Procedure(s): XR foot LT min 3V Accession Number(s): [id number] cc: Amanda Villafana M.D.; EARNEST SALOMON M.D. The [place] [id number] Patient Name: APRYL DOWNS MRN: [facility]:[id number] date: 1980 Sex: F Assigned Patient Location: LAB Current Patient Location: LAB Accession/Order Number: [id number] Exam Date: 01/02/2025 15:35 Report Date: 01/02/2025 15:36 At the request of: EARNEST SALOMON MD Procedure: XR foot LT min 3V LEFT FOOT - 3 views CLINICAL HISTORY: Hallux Valgus Of Left Foot COMPARISON: None FINDINGS: No focal soft tissue abnormality. No acute bony process is seen. Joint spaces appear maintained. No bony erosions. Plantar spurring. XR/XR foot LT min 3V IMPRESSION: NO ACUTE BONY PROCESS. PLANTAR SPURRING. Impression dictated by: Alan Rowan Jr., DGiannaOGianna 01/02/2025 3:36 PM Dictation Location: [place] [address] Electronically authenticated by: [id number] Y Date: 01/02/2025 15:36 Dictated By: Alan Rowan M.D. Signed By: 01/02/25 1538 DD/ 1536 TD/TT: Counter Caser: [facility] Radiology, Radiologist, MD - 01/02/2025 [place] [address] XRay Report Signed Patient: APRYL DOWNS MR#: [id number] : 1980 Acct:[id number] Age/Sex: 44 / F ADM Date: 01/02/25 Loc: LAB Attending Dr: EARNEST SALOMON M.D. Ordering Physician: EARNEST SALOMON M.D. Date of Service: 01/02/25 Procedure(s): XR foot LT min 3V Accession Number(s): [id number] cc: Amanda Villafana M.D.; EARNEST SALOMON M.D. [address] [id number] Patient Name: APRYL DOWNS MRN: [facility]:[id number] date: 1980 Sex: F Assigned Patient Location: LAB Current Patient Location: LAB Accession/Order Number: [id number] Exam Date: 01/02/2025 15:35 Report Date: 01/02/2025 15:36 At the request of: EARNEST SALOMON MD Procedure: XR foot LT min 3V LEFT FOOT - 3 views CLINICAL HISTORY: Hallux Valgus Of Left Foot COMPARISON: None FINDINGS: No focal soft tissue abnormality. No acute bony process is seen. Joint spaces appear maintained. No bony erosions. Plantar spurring. XR/XR foot LT min 3V IMPRESSION: NO ACUTE BONY PROCESS. PLANTAR SPURRING. Impression dictated by: Alan Rowan Jr., D.O. 01/02/2025 3:36 PM Dictation Location: [place] [address] Electronically authenticated by: [id number] Y Date: 01/02/2025 15:36 Dictated By: Alan Rowan M.D. Signed By: 01/02/25 1538 DD/ 1536 TD/TT: Counter Caser: [facility] Radiology Study observation (narrative) [facility] XR FOOT LT MIN 3VOrdered By: Radiologist Radiology on 01-02-2025 [facility] Work Phone: ECG 12-LEADon 12-24-2024 [place] [address] Electrocardiograph Report Signed Patient: APRYL DOWNS MR#: [id number] : 1980 Acct:[id number] Age/Sex: 44 / F ADM Date: 12/24/24 Loc: CARD Attending Dr: EARNEST SALOMON M.D. Ordering Physician: EARNEST SALOMON M.D. 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 Measurements Intervals [place] Rate: 69 P: 36 NV: 121 QRS: 44 QRSD: 88 T: 47 QT: 398 QTc: 429 Interpretive Statements SINUS RHYTHM Normal ECG Compared to ECG 08/13/2021 17:51:10 ST (T wave) deviation no longer present Possible ischemia no longer present Electronically Signed On 12-24-2024 16:12:07 EDT by CESAR PINEDA M.D. Dictated By: CESAR PINEDA Signed By: 12/24/24 1612 12/24/24 161 DD/ 1323 TD/TT: Counter Caser: [facility] Radiology, Radiologist, - 12/24/2024 [place] [address] Electrocardiograph Report Signed Patient: APRYL DOWNS MR#: [id number] : 1980 Acct:[id number] Age/Sex: 44 / F ADM Date: 12/24/24 Loc: CARD Attending Dr: EARNEST SALOMON M.D. Ordering Physician: EARNEST SALOMON M.D. 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 Measurements Intervals [place] Rate: 69 P: 36 NV: 121 QRS: 44 QRSD: 88 T: 47 QT: 398 QTc: 429 Interpretive Statements SINUS RHYTHM Normal ECG Compared to ECG 08/13/2021 17:51:10 ST (T wave) deviation no longer present Possible ischemia no longer present Electronically Signed On 12-24-2024 16:12:07 EDT by CESAR PINEDA M.D. Dictated By: CESAR PINEDA Signed By: 12/24/24 1612 12/24/24 1612 DD/ 1323 TD/TT: Counter Caser: [facility] Radiology Study observation (narrative) [facility] ECG 12-LEADOrdered By: Radio logist Radiology on 12-24-2024 [facility] Work Phone: Basophils Auto (Bld) [#/Vol] on 03-19-2024 Basophils (Bld) [#/Vol] 0.0 10 3/uL 0.0-0.1 [facility] Basophils/100 WBC Auto (Bld) on 03-19-2024 Basophils/100 WBC (Bld) 0.6 % 0.2-2.0 [facility] Eosinophils/100 WBC Auto (Bl d)on 03-19-2024 Eosinophils/100 WBC (Bld) 7.0 % 0.9-7.0 [facility] Erythrocyte distribution wid th Auto (RBC) [Ratio]on 03-19-2024 Erythrocyte distribution width (RBC) [Ratio] 13.6 % 11.0-15.0 [facility] Glucose mean value [Mass/vol ume] in Blood Estimated from glycated hemoglobinon 03-19-2024 Average glucose Estimated from glycated hemoglobin (Bld) [Mass/Vol] 123 mg/dL [facility] Hematocrit Auto (Bld) [Volum e fraction]on 03-19-2024 Hematocrit (Bld) [Volume fraction] 40.6 % 36.0-48.0 [facility] Hemoglobin [Mass/volume] in Bloodon 03-19-2024 Hemoglobin (Bld) [Mass/Vol] 13.1 g/dL 12.0-16.0 [facility] Laboratory - Chemistry and C hemistry - challengeon 03-19-2024 Ferritin [Mass/Vol] 14.0 ng/mL 8.0-252.0 [facility] Laboratory - Hematology and Cell countson 03-19-2024 HbA1c (Bld) [Mass fraction] 5.9 % 4.5-6.2 [facility] Comment on above: ADA RECOMMENDED LIMI T 4.0 - 6.0ADA THERAPEUTIC TARGET < 7.0ACTION SUGGESTED> 7.0 Immature granulocytes/100 WBC (Bld) 0.3 % 0.0-0.5 [facility] Leukocytes [#/volume] correc janel for nucleated erythrocytes in Blood by Automated counon 03-19-2024 WBC corrected for nucl RBC Auto (Bld) [#/Vol] 6.4 10 3/uL 4.0-11.0 [facility] Lymphocytes Auto (Bld) [#/Vo l]on 03-19-2024 Lymphocytes (Bld) [#/Vol] 1.3 10 3/uL 1.2-3.8 [facility] Lymphocytes/100 WBC Auto (Bl d)on 03-19-2024 Lymphocytes/100 WBC (Bld) 20.8 % 20.5-60.0 [facility] MCH Auto (RBC) [Entitic mass ]on 03-19-2024 MCH (RBC) [Entitic mass] 28.2 pg 26.7-34.0 [facility] MCHC Auto (RBC) [Mass/Vol]on 03-19-2024 MCHC (RBC) [Mass/Vol] 32.3 g/dL 29.9-35.2 [facility] MCV Auto (RBC) [Entitic vol] on 03-19-2024 MCV (RBC) [Entitic vol] 87.5 fL 81.0-99.0 [facility] Monocytes Auto (Bld) [#/Vol] on 03-19-2024 Monocytes (Bld) [#/Vol] 0.5 10 3/uL 0.3-0.8 [facility] Monocytes/100 WBC Auto (Bld) on 03-19-2024 Monocytes/100 WBC (Bld) 7.3 % 1.7-12.0 [facility] Neutrophils Auto (Bld) [#/Vo l]on 03-19-2024 Neutrophils (Bld) [#/Vol] 4.1 10 3/uL 1.4-6.5 [facility] Neutrophils/100 WBC Auto (Bl d)on 03-19-2024 Neutrophils/100 WBC (Bld) 64.0 % 43.0-75.0 [facility] No Panel Informationon 03-19 Eosinophils # (Auto) 0.5 10 3/uL 0.0-0.7 [facility] Immature Granulocyte # (Auto) 0.02 10 3/uL 0.00-0.03 [facility] Platelet mean volume Auto (B ld) [Entitic vol]on 03-19-2024 Platelet mean volume (Bld) [Entitic vol] 10.1 fL 9.5-13.5 [facility] Platelets Auto (Bld) [#/Vol] on 03-19-2024 Platelets (Bld) [#/Vol] 235 10 3/uL 150-450 [facility] RBC Auto (Bld) [#/Vol]on RBC (Bld) [#/Vol] 4.64 10 6/uL 4.20-5.40 [facility] Physician Referralon 023 Physician Referral [phone] [id number] #[id number] Normal [facility] T3 Freeon 03-09-2023 Free T3 [Mass/Vol] 2.7 pg/mL Invalid Interpretation Code 2.0-4.4 [facility] Comment on above: Result Comment: Perf ormed at: [facility] [address] [id number] PhD Toya Avendaño Performed By: #### 7 [id number], [id number], 7931948, 1408077, [id number], [id number] #### [facility] [address] [place] [address] CHEMISTRYOrdered By: SYSTEM SYSTEM on 03-08-2023 Albumin [...] 109 mL/min/1.73 m2 Normal >=59mL/min/1 .73 m2 [facility] Chem S Globulin (S) [Mass/Vol] 3.8 g/dL [...] (Bld) [Mass fraction] 5.8 % Normal <=5.9% [facility] ChemAutoSS CMPon 03-08-2023 Albumin [Mass/Vol] 4.3 g/dL Normal 3.3-5.0 [facility] Comment on above: Performed By: #### 7 [id number], [id number], 2322155, 0466145, [id number], 7264854 #### [facility] [address] [place] [address] Albumin/Globulin (S) [Mass conc ratio] 1.1 Normal 1.1-2.2 [facility] Comment on above: Performed By: #### 7 [id number], 9182227, 6907552, 7039517, 60254004, 9479066 #### [facility] [address] [place] [address] ALP [Catalytic activity/Vol] 55 Int._Unit/L Normal 21-98 [facility] Comment on above: Performed By: #### 7 [id number], 0379884, 5921194, 8620140, 33659348, 5831111 #### [facility] [address] [place] [address] ALT No additional P-5'-P [Catalytic activity/Vol] 17 Int._Unit/L Normal 6-46 [facility] Comment on above: Performed By: #### 7 [id number], 2151217, 6393599, 7076731, 33695218, 7299303 #### [facility] [address] [place] [address] Anion gap [Moles/Vol] 9 mmol/L Normal 6-16 [facility] Comment on above: Performed By: #### 7 [id number], 9440762, 1263797, 2499457, 27778509, 2897265 #### [facility] [address] [place] [address] AST [Catalytic activity/Vol] 19 Int._Unit/L Normal 5-43 [facility] Comment on above: Performed By: #### 7 [id number], 2904368, 3481969, 4624805, 26654891, 3434063 #### [facility] [address] [place] [address] Bilirubin [Mass/Vol] 0.6 mg/dL Normal 0.0-1.1 [facility] Comment on above: Performed By: #### 7 [id number], 7862311, 5340028, 0093409, 54732400, 5672754 #### [facility] [address] [place] [address] Calcium [Mass/Vol] 9.3 mg/dL Normal 8.9-11.1 [facility] Comment on above: Performed By: #### 7 [id number], 4522362, 3078982, 2152310, 05938362, 4756509 #### [facility] [address] [place] [address] Chloride [Moles/Vol] 108 mmol/L Normal 101-111 [facility] Comment on above: Performed By: #### 7 [id number], 9460884, 6340354, 6119952, 01324031, 4494112 #### [facility] [address] [place] [address] CO2 [Moles/Vol] 26 mmol/L Normal 21-31 [facility] Comment on above: Performed By: #### 7 [id number], 9111177, 9697795, 3219402, 09788639, 5651021 #### [facility] [address] [place] [address] Creatinine [Mass/Vol] 0.7 mg/dL Normal 0.5-1.3 [facility] Comment on above: Performed By: #### 7 [id number], 3635268, 8309409, 1515673, 52005431, 3917645 #### [facility] [address] [place] [address] Globulin (S) [Mass/Vol] 3.8 g/dL Normal 1.4-4.0 [facility] Comment on above: Performed By: #### 7 [id number], 1065235, 4281661, 9273394, 33629665, 6383237 #### [facility] [address] [place] [address] Glucose [Mass/Vol] 125 mg/dL Normal 55-199 [facility] Comment on above: Result Comment: If t his glucose result represents a fasting glucose, interpretation should refer to the following reference range: 55-99 mg/dL Performed By: #### 7 [id number], 2855230, 0620706, 0337741, 84352945, 3148657 #### [facility] [address] [place] [address] Potassium [Moles/Vol] 4.1 mmol/L Normal 3.5-5.3 [facility] Comment on above: Performed By: #### 7 [id number], 6382407, 5934229, 4320627, 51236040, 5316424 #### [facility] [address] [place] [address] Protein [Mass/Vol] 8.1 g/dL High 6.0-7.8 [facility] Comment on above: Performed By: #### 7 [id number], 9683977, 0849906, 2302012, 54397999, 0514347 #### [facility] [address] [place] [address] Sodium [Moles/Vol] 139 mmol/L Normal 135-145 [facility] Comment on above: Performed By: #### 7 [id number], 1946329, 6352946, 5943134, 42016527, 4195983 #### [facility] [address] [place] [address] Urea nitrogen [Mass/Vol] 14 mg/dL Normal 5-21 [facility] Comment on above: Performed By: #### 7 [id number], 0776671, 0016015, 0784723, 12514688, 5617047 #### [facility] [address] [place] [address] Urea nitrogen/Creatinine [Mass ratio] 20 No Units Normal 10-20 [facility] Comment on above: Performed By: #### 7 [id number], 0968219, 6718822, [id number], [id number], [id number] #### [facility] [address] [place] [address] Consent for Treatmenton 02-26 Consent for Treatment [id number] #1.00CD:127 Normal [facility] Free T4on 03-08-2023 Free T4 [Mass/Vol] 1.24 ng/dL Normal 0.58-1.64 [facility] Comment on above: Performed By: #### 7 [id number], [id number], [id number], [id number] #### [facility] [address] [place] [address] [id number] 03-08-2023 HbA1c (Bld) [Mass fraction] 5.8 % Normal <=5.9 [facility] Comment on above: Performed By: #### 7 [id number], [id number], [id number], [id number], [id number] #### [facility] [address] [place] [address] Physician Orderon 03-08-2023 Physician Order [id number] #1.00CD:127 Normal [facility] TSHon 03-08-2023 TSH Qn 0.11 m[IU]/L Low 0.34-5.60 [facility] Comment on above: Performed By: #### 7 [id number], [id number], [id number], [id number], [id number] #### [facility] [address] [place] [address] eGFRon 03-08-2023 GFR/1.73 sq M.predicted among non-blacks MDRD (S/P/Bld) [Vol rate/Area] 109 mL/min/1.73 m2 Normal >=59 [facility] Comment on above: Order Comment: Order added by Discern Expert. Result Comment: Mining Consultant emre kidney disease could be indicated at eGFR's of less than 60 mL/min/1.73m2. Kidney failure is indicated at less than 15 mL/min/1.73m2. Performed By: #### 7 [id number], [id number], [id number], [id number] #### [facility] [address] [place] [address] CULTURE URINEon 12-14-2022 CULTURE URINE Isolate 1 [...] Trimethoprim/Sulfame thoxazole <=20 S F Normal [facility] Comment on above: Performed By: #### HELEN SIERRARO #### [facility] [address] [place] [address] Dr. Dandy Dobson Physician Orderon 12-13-2022 Physician Order [id number] #1.00CD:127 Normal [facility] ER URINE PROFILEon 3 Bilirubin Ql (U) Negative Normal NEGATIVE [facility] Comment on above: Performed By: #### HELEN SIERRARO #### [facility] [address] [place] [address] Dr. Dandy Dobson Clarity (U) SL CLOUDY Abnormal CLEAR [facility] Comment on above: Performed By: #### HELEN SIERRARO #### [facility] [address] [place] [address] Dr. Dandy Dobson Color (U) LT. YELLOW Normal YELLOW [facility] Comment on above: Performed By: #### HELEN SIERRARO #### [facility] [address] [place] [address] Dr. Dandy LAO A micrscopic examination will be performed if indicated. Normal [facility] Comment on above: Performed By: #### Jony HUGHES UMICRO #### [facility] [address] [place] [address] Dr. Dandy Dobson Glucose Ql (U) Negative Normal NEGATIVE [facility] Comment on above: Performed By: #### Jony HUGHES UMICRO #### [facility] [address] [place] [address] Dr. Dandy Dobson Hemoglobin Ql (U) SMALL Abnormal NEGATIVE [facility] Comment on above: Performed By: #### Jony HUGHES UMICRO #### [facility] [address] [place] [address] Dr. Dandy Dobson Ketones Ql (U) Negative Normal NEGATIVE [facility] Comment on above: Performed By: #### Jony HUGHES UMICRO #### [facility] [address] [place] [address] Dr. Dandy Dobson LEUKOCYTES SMALL Abnormal NEGATIVE [facility] Comment on above: Performed By: #### Jony HUGHES UMICRO #### [facility] [address] [place] [address] Dr. Dandy Dobson Nitrite Ql (U) Negative Normal NEGATIVE [facility] Comment on above: Performed By: #### Jony HUGHES UMICRO #### [facility] [address] [place] [address] Dr. Dandy Dobson pH (U) 6.0 [pH] Normal 5-9 [facility] Comment on above: Performed By: #### Jony HUGHES UMICRO #### [facility] [address] [place] [address] Dr. Dandy Dobson Protein (U) [Mass/Vol] 30 mg/dL Abnormal NEGAT JACKELYN/ TRACE [facility] Comment on above: Performed By: #### Jony HUGHES UMICRO #### [facility] [address] [place] [address] Dr. Dandy Dobson SPEC GRAVITY >=1.030 Abnormal 1.005-<=1.02 5 [facility] Comment on above: Performed By: #### E RUR, UMICRO #### [facility] [address] [place] [address] Dr. Dandy Dobson UR MICRO IND INDICATED Normal [facility] Comment on above: Performed By: #### E RUR, UMICRO #### [facility] [address] [place] [address] Dr. Dandy Dobson Urobilinogen Qn (U) 1.0 {Sarahi'U}/dL Normal 0.2 - 1. 0 [facility] Comment on above: Performed By: #### E RUR, UMICRO #### [facility] [address] [place] [address] Dr. Dandy Dobson URon 12-12-2022 , QUAL Negative Normal NEGATIVE [facility] Comment on above: Performed By: #### P REGU #### [facility] [address] [place] [address] Dr. Dandy Dobson URINE MICROSCOPIC ONLYon BACTERIA SMALL Abnormal NONE SEEN [facility] Comment on above: Performed By: #### E RUR, UMICRO #### [facility] [address] [place] [address] Dr. Dandy Dobson Bacteria identified Cx Nom (U) INDICATED Normal [facility] Comment on above: Performed By: #### E RUR, UMICRO #### [facility] [address] [place] [address] Dr. Dandy Dobson CAST NONE SEEN Normal NONE SEEN [facility] Comment on above: Performed By: #### E RUR, UMICRO #### [facility] [address] [place] [address] Dr. Dandy Dobson Crystals LM Nom (Urine sed) NONE SEEN Normal NONE SEEN [facility] Comment on above: Performed By: #### E RUR, UMICRO #### [facility] [address] [place] [address] Dr. Dandy Dobson Epithelial cells LM Ql (Urine sed) MODERATE Abnormal NONE SEEN /RARE [facility] Comment on above: Performed By: #### Jony HUGHES, UMICRO #### [facility] [address] [place] [address] Dr. Dandy Dobson MUCOUS NONE SEEN Normal NONE SEEN [facility] Comment on above: Performed By: #### Jony HUGHES, UMICRO #### [facility] [address] [place] [address] Dr. Dandy Dobson RBC 10-20 Abnormal 0-2 [facility] Comment on above: Performed By: #### Jony HUGHES, UMICRO #### [facility] [address] [place] [address] Dr. Dandy Dobson WBC (U) [#/Vol] /uL Abnormal NONE SEEN [facility] Comment on above: Performed By: #### Jony HUGHES UMICRO #### [facility] [address] [place] [address] Dr. Dandy Dobson FREE T4on 11-29-2022 Free T4 [Mass/Vol] 1.10 ng/dL Normal 0.76-1.46 [facility] Comment on above: Performed By: #### Jony HUGHES UMICRO #### [facility] [address] [place] [address] Dr. Dandy Dobson TSHon 11-29-2022 TSH 0.204 uIU/mL Critically low 0.358-3.740 [facility] Comment on above: Performed By: #### Jony HUGHES UMICRO #### [facility] [address] [place] [address] Dr. Dandy Dobson CBC AUTO DIFFon 09-14-2022 BASO # 0.0 103/ul Normal 0.0-0.1 [facility] Comment on above: Performed By: #### C BC #### [facility] [address] [place] [address] Dr. Dandy Dobson Basophils/100 WBC (Bld) 0.4 % Normal 0.2-2.0 [facility] Comment on above: Performed By: #### C BC #### [facility] [address] [place] [address] Dr. Dandy Dobson EO # 0.1 103/ul Normal 0.0-0.7 [facility] Comment on above: Performed By: #### C BC #### [facility] [address] [place] [address] Dr. Dandy Dobson Eosinophils/100 WBC (Bld) 2.1 % Normal 0.9-7.0 [facility] Comment on above: Performed By: #### C BC #### [facility] [address] [place] [address] Dr. Dandy Dobson Erythrocyte distribution width (RBC) [Ratio] 13.7 % Normal 11.0-15.0 [facility] Comment on above: Performed By: #### C BC #### [facility] [address] [place] [address] Dr. Dandy Dobson Hematocrit (Bld) [Volume fraction] 38.7 % Normal 36.0-48.0 [facility] Comment on above: Performed By: #### C BC #### [facility] [address] [place] [address] Dr. Dandy Dobson Hemoglobin (Bld) [Mass/Vol] 12.6 g/dL Normal 12.0-16.0 [facility] Comment on above: Performed By: #### C BC #### [facility] [address] [place] [address] Dr. Dandy Dobson IG # 0.01 10e3/ul Normal 0.00-0.03 [facility] Comment on above: Performed By: #### C BC #### [facility] [address] [place] [address] Dr. Dandy Dobson IG % 0.2 % Normal 0.0-0.5 [facility] Comment on above: Performed By: #### C BC #### [facility] [address] [place] [address] Dr. Dandy Dobson LYMPH # 1.6 103/ul Normal 1.2-3.8 [facility] Comment on above: Performed By: #### C BC #### [facility] [address] [place] [address] Dr. Dandy Dobson Lymphocytes/100 WBC (Bld) 27.5 % Normal 20.5-60.0 [facility] Comment on above: Performed By: #### C BC #### [facility] [address] [place] [address] Dr. Dandy Dobson MANUAL DIFF REQ NO Normal [facility] Comment on above: Performed By: #### C BC #### [facility] [address] [place] [address] Dr. Dandy Dobson MCH (RBC) [Entitic mass] 27.1 pg Normal 26.7-34.0 [facility] Comment on above: Performed By: #### C BC #### [facility] [address] [place] [address] Dr. Dandy Dobson MCHC (RBC) [Mass/Vol] 32.6 g/dL Normal 29.9-35.2 [facility] Comment on above: Performed By: #### C BC #### [facility] [address] [place] [address] Dr. Dandy Dobson MCV (RBC) [Entitic vol] 83.2 fL Normal 81.0-99.0 [facility] Comment on above: Performed By: #### C BC #### [facility] [address] [place] [address] Dr. Dandy Dobson MONO # 0.6 103/ul Normal 0.3-0.8 [facility] Comment on above: Performed By: #### C BC #### [facility] [address] [place] [address] Dr. Dandy Dobson Monocytes/100 WBC (Bld) 9.9 % Normal 1.7-12.0 [facility] Comment on above: Performed By: #### C BC #### [facility] [address] [place] [address] Dr. Dandy Dobson NEUT # 3.4 103/ul Normal 1.4-6.5 [facility] Comment on above: Performed By: #### C BC #### [facility] [address] [place] [address] Dr. Dandy Dobson Neutrophils/100 WBC (Bld) 59.9 % Normal 43.0-75.0 [facility] Comment on above: Performed By: #### C BC #### [facility] [address] [address] [address] Dandy Dobosn Platelet mean volume (Bld) [Entitic vol] 9.7 fL Normal 9.5-13.5 [facility] Comment on above: Performed By: #### C BC #### [facility] [address] [place] [address] Dr. Dandy Dobson PLT 230 103/ul Normal 150-450 [facility] Comment on above: Performed By: #### C BC #### [facility] [address] [place] [address] Dr. Dandy Dobson RBC 4.65 106/ul Normal 4.20-5.40 [facility] Comment on above: Performed By: #### C BC #### [facility] [address] [place] [address] Dr. Dandy Dobson WBC 5.6 103/ul Normal 4.0-11.0 [facility] Comment on above: Performed By: #### C BC #### [facility] [address] [place] [address] Dr. Dandy Dobson FERRITINon 09-14-2022 Ferritin [Mass/Vol] 52.0 ng/mL Normal 6.2-137.0 [facility] Comment on above: Performed By: #### V ITB12, IRON, FT4, FERR #### [facility] [address] [place] [address] Dr. Dandy Dobson FREE T4on 09-14-2022 Free T4 [Mass/Vol] 1.69 ng/dL Critically high 0.76-1.46 [facility] Comment on above: Performed By: #### V ITB12, IRON, FT4, FERR #### [facility] [address] [place] [address] Dr. Dandy Dobson GLYCOHEMOGLOBIN A1Con 2022 ADA RECOMMENDATION SEE BELOW Normal [facility] Comment on above: Result Comment: ADA RECOMMENDED LIMIT 4.0 - 6.0 ADA THERAPEUTIC TARGET < 7.0 ACTION SUGGESTED > 7.0 Performed By: #### E RUR, UMICRO #### [facility] [address] [place] [address] Dr. Dandy Dobson Glucose [Mass/Vol] 134 mg/dL Normal [facility] Comment on above: Performed By: #### HELEN SIERRARO #### [facility] [address] [place] [address] Dr. Dandy Dobson HbA1c (Bld) [Mass fraction] 6.3 % Critically high 4.5-6.2 [facility] Comment on above: Performed By: #### ADAMA SIERRAICRO #### [facility] [address] [place] [address] Dr. Dandy Dobson IRONon 09-14-2022 Iron [Mass/Vol] 42.0 ug/dL Critically low 50.0-170.0 [facility] Comment on above: Performed By: #### V ITB12, IRON, FT4, FERR #### [facility] [address] [place] [address] Dr. Dandy Dobson PROF 14(COMP METB)on 023 Albumin [Mass/Vol] 3.8 g/dL Normal 3.4-5.0 [facility] Comment on above: Performed By: #### HELEN SIERRARO #### [facility] [address] [place] [address] Dr. Dandy Dobson Albumin/Globulin [Mass ratio] 1.0 {ratio} Normal [facility] Comment on above: Performed By: #### HELEN SIERRARO #### [facility] [address] [place] [address] Dr. Dandy Dobson ALP [Catalytic activity/Vol] 66 U/L Normal 46-116 [facility] Comment on above: Performed By: #### HELEN SIERRARO #### [facility] [address] [place] [address] Dr. Dandy Dobson ALT [Catalytic activity/Vol] 20 U/L Normal 14-59 [facility] Comment on above: Performed By: #### HELEN SIERRARO #### [facility] [address] [address] [address] Dandy Dobson Anion gap [Moles/Vol] 11.3 mmol/L Normal [facility] Comment on above: Performed By: #### HELEN SIERRARO #### [facility] [address] [place] [address] Dr. Dandy Dobson AST [Catalytic activity/Vol] 16 U/L Normal 15-37 [facility] Comment on above: Performed By: #### Jony HUGHES UMICRO #### [facility] [address] [place] [address] Dr. Dandy Dobson Bilirubin [Mass/Vol] 0.3 mg/dL Normal 0.2-1.0 [facility] Comment on above: Performed By: #### Jony HUGHES UMICRO #### [facility] [address] [place] [address] Dr. Dandy Dobson Calcium [Mass/Vol] 9.0 mg/dL Normal 8.5-10.1 [facility] Comment on above: Performed By: #### Jony HUGHES UMICRO #### [facility] [address] [place] [address] Dr. Dandy Dobson Chloride [Moles/Vol] 103 mmol/L Normal 98-107 [facility] Comment on above: Performed By: #### Jony HUGHES UMICRO #### [facility] [address] [place] [address] Dr. Dandy Dobson CO2 [Moles/Vol] 28.2 mmol/L Normal 21.0-32.0 [facility] Comment on above: Performed By: #### Jony HUGHES UMICRO #### [facility] [address] [place] [address] Dr. Dandy Dobson Creatinine [Mass/Vol] 0.57 mg/dL Normal 0.55-1.02 [facility] Comment on above: Performed By: #### Jony HUGHES UMICRO #### [facility] [address] [place] [address] Dr. Dandy Dobson EGFR-AF BHUTANESE >60 Normal >=60 [facility] Comment on above: Performed By: #### E RUR, UMICRO #### [facility] [address] [place] [address] Dr. Dandy Dobson EGFR-NON AF BHUTANESE >60 Normal >=60 [facility] Comment on above: Performed By: #### E RUR, UMICRO #### [facility] [address] [place] [address] Dr. Dandy Dobson Globulin (S) [Mass/Vol] 3.7 g/dL Normal [facility] Comment on above: Performed By: #### E RUR, UMICRO #### [facility] [address] [place] [address] Dr. Dandy Dobson Glucose [Mass/Vol] 107 mg/dL Critically high 74-106 [facility] Comment on above: Performed By: #### E RUR, UMICRO #### [facility] [address] [place] [address] Dr. Dandy Dobson Potassium [Moles/Vol] 3.5 mmol/L Normal 3.5-5.1 [facility] Comment on above: Performed By: #### E RUR, UMICRO #### [facility] [address] [place] [address] Dr. Dandy Dobson Protein [Mass/Vol] 7.5 g/dL Normal 6.4-8.2 [facility] Comment on above: Performed By: #### E RUR, UMICRO #### [facility] [address] [place] [address] Dr. Dandy Dobson Sodium [Moles/Vol] 139 mmol/L Normal 136-145 [facility] Comment on above: Performed By: #### E RUR, UMICRO #### [facility] [address] [place] [address] Dr. Dandy Dobson Urea nitrogen [Mass/Vol] 12.0 mg/dL Normal 7.0-18.0 [facility] Comment on above: Performed By: #### E RUR, UMICRO #### [facility] [address] [place] [address] Dr. Dandy Dobson Urea nitrogen/Creatinine [Mass ratio] 21.1 mg/mg Normal [facility] Comment on above: Performed By: #### VERONICA SIERRA #### [facility] [address] [place] [address] Dr. Dandy Dobson TSHon 09-14-2022 TSH 0.015 uIU/mL Critically low 0.358-3.740 [facility] Comment on above: Performed By: #### HELEN SIERRARO #### [facility] [address] [place] [address] Dr. Dandy Dobson VITAMIN B12on 09-14-2022 Cobalamin (Vitamin B12) [Mass/Vol] 485.0 pg/mL Normal 193.0-986.0 [facility] Comment on above: Performed By: #### V ITB12, IRON, FT4, FERR #### [facility] [address] [place] [address] Dr. Dandy Dobson GLYCOHEMOGLOBIN A1Con 2021 ADA RECOMMENDATION SEE BELOW Normal [facility] Comment on above: Result Comment: ADA RECOMMENDED LIMIT 4.0 - 6.0 ADA THERAPEUTIC TARGET < 7.0 ACTION SUGGESTED > 7.0 Performed By: #### A 1C #### [facility] [address] [place] [address] Dr. Dandy Dobson Glucose [Mass/Vol] 143 mg/dL Normal [facility] Comment on above: Performed By: #### A 1C #### [facility] [address] [place] [address] Dr. Dandy Dobson HbA1c (Bld) [Mass fraction] 6.6 % Critically high 4.5-6.2 [facility] Comment on above: Performed By: #### A 1C #### [facility] [address] [place] [address] Dr. Dandy Dobson LIPID PROFILEon 06-09-2022 CHOL-HDL RATIO NORM SEE BELOW Normal [facility] Comment on above: Result Comment: 3.3 - 4.4 LOW RISK 4.4 - 7.1 AVERAGE RISK 7.1 - 11.0 MODERATE RISK >11.0 HIGH RISK Performed By: #### E RUR, UMICRO #### [facility] [address] [address] [address] Dandy Dobson Cholesterol [Mass/Vol] 138 mg/dL Normal <=200 [facility] Comment on above: Performed By: #### E SAUL UMICRO #### [facility] [address] [address] [address] Dandy Dobson Cholesterol in HDL [Mass/Vol] 46 mg/dL Normal 40-60 [facility] Comment on above: Performed By: #### Jony HUGHES UMICRO #### [facility] [address] [address] [address] Dandy Dobson Cholesterol in LDL [Mass/Vol] 62.4 mg/dL Normal [facility] Comment on above: Performed By: #### Jony HUGHES UMICRO #### [facility] [address] [place] [address] Dr. Dandy Dobson Cholesterol.total/Chol esterol in HDL [Mass ratio] 3.0 {ratio} Normal [facility] Comment on above: Performed By: #### Jony HUGHES UMICRO #### [facility] [address] [address] [address] Dandy Dobson HDL NORMAL > or = 60 mg/dl - LOW CARDIOVASCULAR RISK <40 mg/dl - HIGH CARDIOVASCULAR RISK Normal [facility] Comment on above: Performed By: #### Jony HUGHES UMICRO #### [facility] [address] [place] [address] Dr. Dandy Dobson LDL CALC NORMAL SEE BELOW Normal [facility] Comment on above: Result Comment: <100 mg/dl OPTIMAL 100 - 129 mg/dl NEAR OR ABOVE OPTIMAL 130 - 159 mg/dl BORDERLINE HIGH 160 - 189 mg/dl HIGH >190 mg/dl VERY HIGH Performed By: #### Jony HUGHES UMICRO #### [facility] [address] [place] [address] Dr. Dandy Dobson Triglyceride [Mass/Vol] 148 mg/dL Normal <=150 [facility] Comment on above: Performed By: #### Jony HUGHES UMICRO #### [facility] [address] [address] [address] Dandy Dobson VLDL CALC 29.6 mg/dL Normal [facility] Comment on above: Performed By: #### HELEN SIERRARO #### [facility] [address] [address] [address] Dandy Dobson PROF CHEM 8 (BAS METB)on Anion gap [Moles/Vol] 9.4 mmol/L Normal [facility] Comment on above: Performed By: #### HELEN SIERRARO #### [facility] [address] [address] [address] Dandy Dobson Calcium [Mass/Vol] 8.7 mg/dL Normal 8.5-10.1 [facility] Comment on above: Performed By: #### HELEN SIERRARO #### [facility] [address] [place] [address] Dr. Dandy Dobson Chloride [Moles/Vol] 104 mmol/L Normal 98-107 [facility] Comment on above: Performed By: #### HELEN SIERRARO #### [facility] [address] [place] [address] Dr. Dandy Dobson CO2 [Moles/Vol] 28.8 mmol/L Normal 21.0-32.0 [facility] Comment on above: Performed By: #### HELEN SIERRARO #### [facility] [address] [place] [address] Dr. Dandy Dobson Creatinine [Mass/Vol] 0.67 mg/dL Normal 0.55-1.02 [facility] Comment on above: Performed By: #### HEELN SIERRARO #### [facility] [address] [address] [address] Dandy Dobson EGFR-AF BHUTANESE >60 Normal >=60 [facility] Comment on above: Performed By: #### HELEN SIERRARO #### [facility] [address] [place] [address] Dr. Dandy Dobson EGFR-NON AF BHUTANESE >60 Normal >=60 [facility] Comment on above: Performed By: #### Jony HUGHES UMICRO #### [facility] [address] [address] [address] Dandy Dobson Glucose [Mass/Vol] 120 mg/dL Critically high 74-106 [facility] Comment on above: Performed By: #### Jony HUGHES, UMICRO #### [facility] [address] [place] [address] Dr. Dandy Dobson Potassium [Moles/Vol] 4.2 mmol/L Normal 3.5-5.1 [facility] Comment on above: Performed By: #### E SAUL, UMICRO #### [facility] [address] [place] [address] Dr. Dandy Dobson Sodium [Moles/Vol] 138 mmol/L Normal 136-145 [facility] Comment on above: Performed By: #### Jony HUGHES UMICRO #### [facility] [address] [place] [address] Dr. Dandy Dobson Urea nitrogen [Mass/Vol] 17.0 mg/dL Normal 7.0-18.0 [facility] Comment on above: Performed By: #### Jony HUGHES UMICRO #### [facility] [address] [place] [address] Dr. Dandy Dobson Urea nitrogen/Creatinine [Mass ratio] 25.4 mg/mg Normal [facility] Comment on above: Performed By: #### Jony HUGHES UMICRO #### [facility] [address] [place] [address] Dr. Dandy Dobson MRI BRAIN WO CONon [...] by: MANJU CHAMPAGNE Date: 2022-02-15 16:53 Normal [facility] CHEMISTRYOrdered By: SYSTEM SYSTEM on 02-04-2022 Troponin I.cardiac [Mass/Vol] 4.40 pg/mL Low 10.10 - 27.10 pg/mL FT Remisol Anion gap [Moles/Vol] 12 mmol/L Normal 6 - 16 mEq/L F C Remisol Calcium [Mass/Vol] 8.8 mg/dL Low 8.9 [...] rate/Area] mL/min/1.73 m2 Normal >=59mL/min/1 .73 m2 [facility] Chem S Glucose [Mass/Vol] 150 mg/dL Normal 55 - 199 mg/dL FT Remisol Lipase [Catalytic activity/Vol] 38 U/L Normal 13 - 58 unit/L [facility] Remisol Magnesium [Mass/Vol] 1.9 mg/dL Normal 1.3 - 2 .4 mg/dL [facility] Remisol Potassium [Moles/Vol] 3.1 mmol/L Low 3.5 - 5.3 mmol/L [facility] Remisol Sodium [Moles/Vol] 135 mmol/L Normal 135 - 145 mmol/L [facility] Remisol Troponin I.cardiac [Mass/Vol] 4.10 pg/mL Low 10.10 - 27.10 pg/mL [facility] Remisol Urea nitrogen [Mass/Vol] 10 mg/dL Normal 5 - 21 mg/dL [facility] Remisol Urea nitrogen/Creatinine [Mass ratio] 17 mg/mg Normal 10 - 20 [facility] Remisol CHEMISTRYOrdered By: Ciara quintana on 02-04-2022 Natriuretic peptide B (Bld) [Mass/Vol] 33 pg/mL Normal 5 - 80 pg/mL [facility] HemeManSS CHEMISTRYOrdered By: Lab ROP User on 02-04-2022 Glucose [Mass/Vol] 144 mg/dL High 55 - 99 mg/dL [facility] POC Subsection POC Device SN [id number] Invalid Interpretation Code [facility] POC Subsection POC User ID [id number] Invalid Interpretation Code [facility] POC Subsection POC Username RADHA REY Invalid Interpretation Code [facility] POC Subsection COAGULATIONOrdered By: Christina Colindres on 02-04-2022 aPTT Coag (PPP) [Time] 32.0 s Normal 25.1 - 36.5 second(s) [facility] Auto Coag INR Coag (PPP) [Relative time] 1.0 {INR} Invalid Interpretation Code [facility] Auto Coag PT Coag (PPP) [Time] 11.6 s Normal 10.2 - 12.9 second(s) [facility] Auto Coag HEMATOLOGYOrdered By: SYSTEM SYSTEM on 02-04-2022 Basophils/100 WBC (Bld) 0.9 % Normal 0.0 - 2.0 % FT [facility] Basophils/Leukocytes Auto (Bld) [Pure # fraction] 0.1 E9/L Normal 0.0 - 0.2 E9/L FT [facility] Eosinophils/100 WBC (Bld) 1.2 % Normal 0.0 - 8.0 % FT [facility] Eosinophils/Leukocytes Auto (Bld) [Pure # fraction] [...] 7.3 E9/L Normal 4.0 - 11.0 E9/L FT [facility] URINALYSISOrdered By: Christina xiong on 02-04-2022 [...] PM) Normal Negative [facility] UA Auto SS Thorp.plasma/Thorp .RBC (Bld) [Mass ratio] 0-3 /HPF Normal [...] [facility] UA Auto SS Urobilinogen Qn (U) 0.7324844 {Sarahi'U}/dL Normal 0.0 - 1.0 EU/dL [facility] UA Auto SS WBC Auto Ql (U) Negative (02/04/22 7:21 PM) Normal Negative [facility] UA Auto SS WBC LM.HPF (Urine sed) [#/Area] 0-5 /HPF Normal 0-5/HPF [facility] UA Auto SS CBC AUTO DIFFon 12-31-2021 BASO # 0.0 103/ul Normal 0.0-0.1 [facility] Comment on above: Performed By: #### C BC #### [facility] [address] [address] [address] Dandy Dboson Basophils/100 WBC (Bld) 0.2 % Normal 0.2-2.0 [facility] Comment on above: Performed By: #### C BC #### [facility] [address] [address] [address] Dandy Dobson EO # 0.0 103/ul Normal 0.0-0.7 [facility] Comment on above: Performed By: #### C BC #### [facility] [address] [address] [address] Dandy Dobson Eosinophils/100 WBC (Bld) 0.1 % Critically low 0.9-7.0 [facility] Comment on above: Performed By: #### C BC #### [facility] [address] [address] [address] Dandy Dobson Erythrocyte distribution width (RBC) [Ratio] 13.9 % Normal 11.0-15.0 [facility] Comment on above: Performed By: #### C BC #### [facility] [address] [address] [address] Dandy Dobson Hematocrit (Bld) [Volume fraction] 42.7 % Normal 36.0-48.0 [facility] Comment on above: Performed By: #### C BC #### [facility] [address] [address] [address] Dandy Dobson Hemoglobin (Bld) [Mass/Vol] 13.9 g/dL Normal 12.0-16.0 [facility] Comment on above: Performed By: #### C BC #### [facility] [address] [address] [address] Dandy Dobson IG # 0.03 10e3/ul Normal 0.00-0.03 [facility] Comment on above: Performed By: #### C BC #### [facility] [address] [place] [address] Dr. Dandy Dobson IG % 0.3 % Normal 0.0-0.5 [facility] Comment on above: Performed By: #### C BC #### [facility] [address] [place] [address] Dr. Dandy Dobson LYMPH # 1.2 103/ul Normal 1.2-3.8 [facility] Comment on above: Performed By: #### C BC #### [facility] [address] [place] [address] Dr. Dandy Dobson Lymphocytes/100 WBC (Bld) 13.5 % Critically low 20.5-60.0 [facility] Comment on above: Performed By: #### C BC #### [facility] [address] [place] [address] Dr. Dandy Dobson MANUAL DIFF REQ NO Normal [facility] Comment on above: Performed By: #### C BC #### [facility] [address] [place] [address] Dr. Dandy Dobson MCH (RBC) [Entitic mass] 27.4 pg Normal 26.7-34.0 [facility] Comment on above: Performed By: #### C BC #### [facility] [address] [place] [address] Dr. Dandy Dobson MCHC (RBC) [Mass/Vol] 32.6 g/dL Normal 29.9-35.2 [facility] Comment on above: Performed By: #### C BC #### [facility] [address] [place] [address] Dr. Dandy Dobson MCV (RBC) [Entitic vol] 84.2 fL Normal 81.0-99.0 [facility] Comment on above: Performed By: #### C BC #### [facility] [address] [place] [address] Dr. Dandy Dobson MONO # 0.4 103/ul Normal 0.3-0.8 [facility] Comment on above: Performed By: #### C BC #### [facility] [address] [place] [address] Dr. Dandy Dobson Monocytes/100 WBC (Bld) 5.0 % Normal 1.7-12.0 [facility] Comment on above: Performed By: #### C BC #### [facility] [address] [place] [address] Dr. Dandy Dobson NEUT # 7.1 103/ul Critically high 1.4-6.5 [facility] Comment on above: Performed By: #### C BC #### [facility] [address] [place] [address] Dr. Dandy Dobson Neutrophils/100 WBC (Bld) 80.9 % Critically high 43.0-75.0 [facility] Comment on above: Performed By: #### C BC #### [facility] [address] [place] [address] Dr. Dandy Dobson Platelet mean volume (Bld) [Entitic vol] 10.4 fL Normal 9.5-13.5 [facility] Comment on above: Performed By: #### C BC #### [facility] [address] [place] [address] Dr. Dandy Dobson PLT 256 103/ul Normal 150-450 [facility] Comment on above: Performed By: #### C BC #### [facility] [address] [place] [address] Dr. Dandy Dobson RBC 5.07 106/ul Normal 4.20-5.40 [facility] Comment on above: Performed By: #### C BC #### [facility] [address] [place] [address] Dr. Dandy Dobson WBC 8.8 103/ul Normal 4.0-11.0 [facility] Comment on above: Performed By: #### C BC #### [facility] [address] [place] [address] Dr. Dandy Dobson PROF CHEM 8 (BAS METB)on Anion gap [Moles/Vol] 11.2 mmol/L Normal [facility] Comment on above: Performed By: #### E RUR, UMICRO #### [facility] [address] [address] [address] Dandy Dobson Calcium [Mass/Vol] 8.2 mg/dL Critically low 8.5-10.1 [facility] Comment on above: Performed By: #### Jony HUGHES, UMICRO #### [facility] [address] [place] [address] Dr. Dandy Dobson Chloride [Moles/Vol] 100 mmol/L Normal 98-107 [facility] Comment on above: Performed By: #### Jony HUGHES, UMICRO #### [facility] [address] [place] [address] Dr. Dandy Dobson CO2 [Moles/Vol] 25.5 mmol/L Normal 21.0-32.0 [facility] Comment on above: Performed By: #### Jony HUGHES UMICRO #### [facility] [address] [place] [address] Dr. Dandy Dobson Creatinine [Mass/Vol] 0.72 mg/dL Normal 0.55-1.02 [facility] Comment on above: Performed By: #### Jony HUGHES UMICRO #### [facility] [address] [place] [address] Dr. Dandy Dobson EGFR-AF BHUTANESE >60 Normal >=60 [facility] Comment on above: Performed By: #### Jony HUGHES UMICRO #### [facility] [address] [place] [address] Dr. Dandy Dobson EGFR-NON AF BHUTANESE >60 Normal >=60 [facility] Comment on above: Performed By: #### Jony HUGHES UMICRO #### [facility] [address] [place] [address] Dr. Dandy Dobson Glucose [Mass/Vol] 201 mg/dL Critically high 74-106 [facility] Comment on above: Performed By: #### Jony HUGHES, UMICRO #### [facility] [address] [place] [address] Dr. Dandy Dobson Potassium [Moles/Vol] 3.7 mmol/L Normal 3.5-5.1 [facility] Comment on above: Performed By: #### E RUR, UMICRO #### [facility] [address] [address] [address] Dandy Dobson Sodium [Moles/Vol] 133 mmol/L Critically low 136-145 [facility] Comment on above: Performed By: #### E RUR, UMICRO #### [facility] [address] [address] [address] Dandy Dobson Urea nitrogen [Mass/Vol] 9.0 mg/dL Normal 7.0-18.0 [facility] Comment on above: Performed By: #### E RUR, UMICRO #### [facility] [address] [address] [address] Dandy Dobson Urea nitrogen/Creatinine [Mass ratio] 12.5 mg/mg Normal [facility] Comment on above: Performed By: #### E MELINDAR, UMICRO #### [facility] [address] [address] [address] [facility]YL [facility] ([id number]) 1980 F Date Time Provider Department 01/22/21 JOB WEBER During your visit today, we recorded the following information about you: Carla Barrera Pss 01/22/2021 9:01 AM Signed Patient called in [...] patient to schedule. Thank you. Carla Weber APRN.WOOD TANK ERECTOR 01/22/2021 10:31 AM Signed Yes patient can [...] Date Reviewed: 01/22/2021 Reviewed by: Job Weber APRN.WOOD TANK ERECTOR - Fully Assessed Reason for Visit: Future [...] 10/02/2020 Heart murmur [R01.1] 10/02/2020 Patient is Hoahaoism [Z78.9] 10/02/2020 Encounter Status:Closed by CARLA SANTIAGO on 01/22/21 [facility] 10-28-2020 TRESAN Telephone ([facility]) APRYL DOWNS ([id number]) 1980 F Date Time Provider Department 10/28/20 AYAH MUÑOZ [facility] During your visit today, we recorded the following information about you: Kya Wyatt 10/28/2020 9:19 AM Signed Patient had surgery on 10/03. States she has not stopped bleeding since 10/18. Says it is a moderate bleed. Marjorie Nobles RN 10/28/2020 9:53 AM Signed I called the patient and there was no answer. VM is full and cannot leave a message. Marjorie Blake Pss 10/28/2020 2:40 PM Signed Patient [...] cannot leave a message. Marjorie Nobles RN Marjorie Nobles RN 10/29/2020 2:30 PM Signed [...] premenopausal period [N92.4] Order(s):CBC [CB] Order #: [id number] FUTURE Prescriptions as of 10/28/2020 Sig: METFORMIN [...] Heart murmur [R01.1] 10/02/2020 More... Patient is Hoahaoism [Z78.9] 10/02/2020 More... Encounter Status:Closed by MARJORIE NOBLES RN on 10/29/20 [facility] 10-06-2020 CNPN Telephone ([id number]) DOWNSAPRYL STEPHENS ([id number]) 1980 F Date Time Provider Department 10/06/20 AYAH MUÑOZ [id number] During your visit today, we recorded the following information about you: Yoli March Pss 10/06/2020 9:46 AM Signed Apryl Downs called today. : 1980 Allergies: Oxycodone-Acetaminop hen (home) [phone] (cell) Reason for call: Patient calling with [...] of provider message. Work release sent via [employer]. Pt verbalized understanding. Lana Blackmon RN Allergies [...] Heart murmur [R01.1] 10/02/2020 More... Patient is Hoahaoism [Z78.9] 10/02/2020 More... Letter Text Encounter Status:Closed by LANA BLACKMON RN on 10/06/20 [facility] ANES POSTPROC EVALon 021 ANES POSTPROC EVAL HNO ID: [id number] Author: Naz Caballero Service: Anesthesiology Author Type: Anesthesiologist Type: Anesthesia Postprocedure Evaluation Filed: 10/03/2020 8:32 AM Note Text: POST ANESTHESIA EVALUATION NOTE : 1980 Procedure Summary Date: 10/03/20 Room / Location: AV OR05 / AV OR Anesthesia Start: 741 Anesthesia [...] October 03, 2020 TIME: 8:32 AM CSN: [id number] [facility] ANES PRE-OPon 10-03-2020 ANES PRE-OP HNO ID: [id number] Author: Naz Caballero Service: Anesthesiology Author Type: [...] October 03, 2020 TIME: 7:02 AM CSN: [id number] [facility] OPERATIVE NOon 10-03-2020 OPERATIVE NO HNO ID: [id number] Author: Ayah Muñoz Service: Gynecology Author Type: Physician Type: Operative Report Filed: 10/03/2020 4:23 PM Note Text: [facility] - Operative Report APRYL DOWNS : 1980 AGE: 40. SEX: F PATIENT TYPE: A HOSP SVC: OBGYN LOCATION: [facility] ATTENDING PHYSICIAN: Ayah Muñoz M.D. CSN NUMBER: [id number] DATE OF SURGERY/PROCEDURE: 10/03/2020 INCISION/PROCEDURE START TIME: 7:57 AM INCISION CLOSE/PROCEDURE END TIME: 8:07 AM PREOPERATIVE DIAGNOSIS: Menorrhagia. POSTOPERATIVE DIAGNOSIS: Menorrhagia. SURGEON: Ayah Muñoz M.D. FISH HATCHERY ASSISTANT: None. SURGERY/PROCEDURE: Hysteroscopy, Ann endometrial ablation, D [...] BLOOD LOSS: 5 mL. Ayah Muñoz M.D. FSB:[id number] /[id number] Normal [facility] SURGICAL PATHOLOGYon 021 SURGICAL PATHOLOGY Specimen originated from [facility] Specimen #: [id number] Submitting Physician: AYAH MUÑOZ MD FINAL DIAGNOSIS [...] in five cassettes. Gross examination performed at [facility], [address] [place] [address] 10/03/2020 12:53:09 PM Date of Report: 10/06/2020 Date of Procedure: 10/03/2020 Date of Receipt: 10/03/2020 Submitted by: AYAH MUÑOZ MD Location: [facility]SG Diagnostic interpretation performed at [facility], [address] [place] [address]. CLIA Number: [id number] Normal [facility] Comment on above: Performed [...] murmur [R01.1] Heart murmur [R01.1] Patient is Hoahaoism [Z78.9] Allergies: Oxycodone-Acetaminop hen Date Verified: 10/03/20 Lab Values Lab Value Units Date High Low POTA* 4.1 mmol/L 09/19/2020 5.1 3.7 BRISEIDA* 29.5 % 09/24/2020 46.0 36.0 Progress Notes ([facility] 650): Marjorie Nobles RN 09/25/2020 2:34 PM [...] PM Signed Pt scheduled for 10/03/20 at [place] time TBD for Hysteroscopy endometrial ablation DANDC for menorrhagia AND anemia through [facility] today. Pt notified of the all surgery information above. Pt aware that she will require pre op testing prior to surgery and PAT number given to pt to call and schedule. Pt aware PAT needs completed to proceed with surgery. Pt is aware she will need to be at [place] as instructed by [facility] and no solid food after midnight. The [place] facility will contact the pt the day [...] for surgical case scheduled for 10/03/20 at [place], please approve if appropriate. Spoke with pt. Pt aware if she can provider hard copy of positive test then she will not need test but if not she needs to be tested per [place] surgery scheduling. COVID scheduled for 10/01/20 at [...] September 24, 2020) PRIMARY CARE PHYSICIAN: Kelly Salas CNP CC: This is a 40 year old female with a history of recurrent iron deficiency anemia, seen for scheduled follow-up. (Former [facility] patient) INTERIM HISTORY: Apryl Downs returns for [...] on 10/09/2020 for a pelvic ultrasound the pharmaceutical laboratory technician's office will be calling her to set [...] medications. Continue management per PCP. Job Weber APRN.WOOD TANK ERECTOR Normal [facility] BASIC METABOLIC PANELon 08-0 Calcium [Mass/Vol] 8.4 mg/dL Low 8.6-10.3 [facility] Comment on above: Order Comment: No: D o not add to previous draw Performed By: #### 3 [id number] #### [facility] [address] [place] [place] [address], [facility] Chloride [Moles/Vol] 108 mmol/L High 98-107 [facility] Comment on above: Order Comment: No: D o not add to previous draw Performed By: #### 3 3029 #### [facility] [address] [facility] [place] [address], [facility] CO2 [Moles/Vol] 25 mmol/L Normal 21-31 [facility] Comment on above: Order Comment: No: D o not add to previous draw Performed By: #### 3 1079 #### [facility] [address] [place] [address], [place] Creatinine [Mass/Vol] 0.45 mg/dL Low 0.60-1.20 [facility] Comment on above: Order Comment: No: D o not add to previous draw Performed By: #### 3 1079 #### [facility] [address] [place] [address], [place] GFR/1.73 sq M predicted among blacks MDRD (S/P/Bld) [Vol rate/Area] mL/min/{1.73_m2} Normal >60 [facility] Comment on above: Order Comment: No: D o not add to previous draw Performed By: #### 3 1079 #### [facility] [address] [place] [address], [place] GFR/1.73 sq M predicted among non-blacks MDRD (S/P/Bld) [Vol rate/Area] mL/min/{1.73_m2} Normal >60 [facility] Comment on above: Order Comment: No: D o not add to previous draw Performed By: #### 3 1079 #### [facility] [address] [place] [address], [place] Glucose [Mass/Vol] 123 mg/dL High 70-100 [facility] Comment on above: Order Comment: No: D o not add to previous draw Performed By: #### 3 1079 #### [facility] [address] [place] [address], [place] Potassium [Moles/Vol] 3.7 mmol/L Normal 3.5-5.1 [facility] Comment on above: Order Comment: No: D o not add to previous draw Performed By: #### 3 1079 #### [facility] [address] [place] [address], [place] Sodium [Moles/Vol] 137 mmol/L Normal 136-145 [facility] Comment on above: Order Comment: No: D o not add to previous draw Performed By: #### 3 1079 #### [facility] [address] [place] [address], [facility] Urea nitrogen [Mass/Vol] 14 mg/dL Normal 7-25 [facility] Comment on above: Order Comment: No: D o not add to previous draw Performed By: #### 3 1079 #### [facility] [address] [place] [address], [facility] CBC COMPLETE BLOOD COUNTon 0 04-02-2019 Erythrocyte distribution width (RBC) [Ratio] 13.4 % Normal 11.5-15.0 [facility] Comment on above: Order Comment: No: D o not add to previous draw Performed By: #### 3 1079 #### [facility] [address] [place] [address], [facility] Hematocrit (Bld) [Volume fraction] 36.6 % Normal 36.0-45.0 [facility] Comment on above: Order Comment: No: D o not add to previous draw Performed By: #### 3 1079 #### [facility] [address] [place] [address], [facility] Hemoglobin (Bld) [Mass/Vol] 11.7 g/dL Low 12.0-15.0 [facility] Comment on above: Order Comment: No: D o not add to previous draw Performed By: #### 3 1079 #### [facility] [address] [place] [address], [facility] MCH (RBC) [Entitic mass] 29.2 pg Normal 27.0-33.0 [facility] Comment on above: Order Comment: No: D o not add to previous draw Performed By: #### 3 1079 #### [facility] [address] [place] [id number], [facility] MCHC (RBC) [Mass/Vol] 32.0 g/dL Normal 32.0-35.0 [facility] Comment on above: Order Comment: No: D o not add to previous draw Performed By: #### 3 1079 #### [facility] [address] [place] [address], [facility] MCV (RBC) [Entitic vol] 91.3 fL Normal 82.0-98.0 [facility] Comment on above: Order Comment: No: D o not add to previous draw Performed By: #### 3 1079 #### [facility] [address] [facility] Nucleated RBC/100 WBC (Bld) [Ratio] 0 % Normal 0-0 [facility] Comment on above: Order Comment: No: D o not add to previous draw Performed By: #### 3 1079 #### [facility] [address] [place] [place] [address], [facility] PLAT CNT 227 10*3/uL Normal 150-400 [facility] Comment on above: Order Comment: No: D o not add to previous draw Performed By: #### 3 1079 #### [facility] [address] RBC (Bld) [#/Vol] 4.01 10*6/uL Normal 3.80-5.00 [facility] Comment on above: Order Comment: No: D o not add to previous draw Performed By: #### 3 1079 #### [facility] [address] [place] [place] [address], [facility] WBC (Bld) [#/Vol] 5.58 10*3/uL Normal 4.00-10.60 [facility] Comment on above: Order Comment: No: D o not add to previous draw Performed By: #### 3 1079 #### [facility] [address] POC GLUCOSE LABon 04-02-2019 Glucose [Mass/Vol] 135 mg/dL High 70-100 [facility] Comment on above: Performed By: #### 3 1079 #### [facility] [address] [place] [address], [place] Glucose [Mass/Vol] 124 mg/dL High 70-100 [facility] [facility] Comment on above: Performed By: #### 3 1079 #### [facility] [address] [place] [address], [place] URINALYSIS REFLEXon 04-02-20 19 AMORPHOUS FEW Abnormal NONE SEEN [facility] Comment on above: Order Comment: No: D o not add to previous draw Performed By: #### 3 1079 #### [facility] [address] [place] [address], [place] Appearance (U) SL CLOUDY Abnormal CLEAR [facility] Comment on above: Order Comment: No: D o not add to previous draw Performed By: #### 3 1079 #### [facility] [address] [place] [address], [place] Bilirubin [Mass/Vol] Negative Normal NEGATIVE [facility] Comment on above: Order Comment: No: D o not add to previous draw Performed By: #### 3 1079 #### [facility] [address] [place] [address], [place] BLOOD LARGE Abnormal NEGATIVE [facility] Comment on above: Order Comment: No: D o not add to previous draw Performed By: #### 3 1079 #### [facility] [address] [place] [address], [place] Color (U) YELLOW Normal YELLOW [facility] Comment on above: Order Comment: No: D o not add to previous draw Performed By: #### 3 1079 #### [facility] [address] [place] [address], [place] EPIS MANY Abnormal FEW,OCC,NONE SEEN [facility] Comment on above: Order Comment: No: D o not add to previous draw Performed By: #### 3 1079 #### [facility] [address] [place] [address], [place] Glucose [Mass/Vol] Negative Normal NEGATIVE [facility] Comment on above: Order Comment: No: D o not add to previous draw Performed By: #### 3 1079 #### [facility] [address] [place] [address], [place] KETONE Negative Normal NEGATIVE [facility] Comment on above: Order Comment: No: D o not add to previous draw Performed By: #### 3 1079 #### [facility] [address] [place] [address], [place] LEUK TITI Negative Normal NEGATIVE [facility] Comment on above: Order Comment: No: D o not add to previous draw Performed By: #### 3 1079 #### [facility] [address] [place] [address], [place] MUCUS THREADS FEW Abnormal NONE SEEN The [facility] Comment on above: Order Comment: No: D o not add to previous draw Performed By: #### 3 1079 #### [facility] [address] [place] [address], [place] Nitrite Ql (U) Negative Normal NEGATIVE [facility] Comment on above: Order Comment: No: D o not add to previous draw Performed By: #### 3 1079 #### [facility] [address] [place] [address], [place] pH (Bld) 7.0 Normal 5.0-8.0 [facility] Comment on above: Order Comment: No: D o not add to previous draw Performed By: #### 3 1079 #### [facility] [address] [place] [address], [place] Protein (U) [Mass/Vol] Negative Normal NEGATIVE Th e [facility] Comment on above: Order Comment: No: D o not add to previous draw Performed By: #### 3 1079 #### [facility] [address] [place] [address], [place] RBC (U) [#/Vol] 0-2 Abnormal NONE SEEN [facility] Comment on above: Order Comment: No: D o not add to previous draw Performed By: #### 3 1079 #### [facility] [address] [place] [address], [place] SPEC GRAV 1.017 Normal 1.015-1.020 [facility] Comment on above: Order Comment: No: D o not add to previous draw Performed By: #### 3 1079 #### [facility] [address] [place] [address], [place] UA COMMENT 2 UROBILINOGEN (E.U./DL) 4.0 Normal [facility] Comment on above: Order Comment: No: D o not add to previous draw Performed By: #### 3 1079 #### [facility] [address] [place] [address], [place] WBC UA 0-2 Abnormal NONE SEEN The [facility] Comment on above: Order Comment: No: D o not add to previous draw Performed By: #### 3 1079 #### [facility] [address] [place] [address], [place] BASIC METABOLIC PANELon 08-0 -2018 Calcium [Mass/Vol] 8.6 mg/dL Normal 8.6-10.3 [facility] Comment on above: Order Comment: No: D o not add to previous draw Performed By: #### 4 999, , 94271 #### [facility] [address] [place] [address], [place] Chloride [Moles/Vol] 107 mmol/L Normal 98-107 [facility] Comment on above: Order Comment: No: D o not add to previous draw Performed By: #### 4 1000, 05856, 80139 #### [facility] [address] [place] [address], [place] CO2 [Moles/Vol] 24 mmol/L Normal 21-31 [facility] Comment on above: Order Comment: No: D o not add to previous draw Performed By: #### 4 1000, , 55570 #### [facility] [address] [place] [id number], [facility] Creatinine [Mass/Vol] 0.50 mg/dL Low 0.60-1.20 [facility] Comment on above: Order Comment: No: D o not add to previous draw Performed By: #### 4 1000, , 44096 #### [facility] [address] [place] [id number], [place] GFR/1.73 sq M predicted among blacks MDRD (S/P/Bld) [Vol rate/Area] mL/min/{1.73_m2} Normal >60 The [facility] Comment on above: Order Comment: No: D o not add to previous draw Performed By: #### 4 1000, , 77317 #### [facility] [address] [place] [id number], [facility] GFR/1.73 sq M predicted among non-blacks MDRD (S/P/Bld) [Vol rate/Area] mL/min/{1.73_m2} Normal >60 The [facility] Comment on above: Order Comment: No: D o not add to previous draw Performed By: #### 4 1000, , 06332 #### [facility] [address] [place] [address], [place] Glucose [Mass/Vol] 106 mg/dL High 70-100 [facility] Comment on above: Order Comment: No: D o not add to previous draw Performed By: #### 4 1000, , 80003 #### [facility] [address] [place] [address], [place] Potassium [Moles/Vol] 3.3 mmol/L Low 3.5-5.1 [facility] Comment on above: Order Comment: No: D o not add to previous draw Performed By: #### 4 1000, , 79727 #### [facility] [address] [place] [address], [facility] Sodium [Moles/Vol] 139 mmol/L Normal 136-145 [facility] Comment on above: Order Comment: No: D o not add to previous draw Performed By: #### 4 1000, 22839, 06883 #### [facility] [address] [place] [id number], [facility] Urea nitrogen [Mass/Vol] 11 mg/dL Normal 7-25 [facility] Comment on above: Order Comment: No: D o not add to previous draw Performed By: #### 4 1000, 60427, 27409 #### [facility] [address] [facility] [place] [address] CBC COMPLETE BLOOD COUNTon 0 04-01-2019 Erythrocyte distribution width (RBC) [Ratio] 13.5 % Normal 11.5-15.0 [facility] Comment on above: Order Comment: No: D o not add to previous draw Performed By: #### 5 06, 84698 #### [facility] [address] [place] [address], [facility] Hematocrit (Bld) [Volume fraction] 36.7 % Normal 36.0-45.0 [facility] Comment on above: Order Comment: No: D o not add to previous draw Performed By: #### 5 607, 30429 #### [facility] [address] [place] [address], [facility] Hemoglobin (Bld) [Mass/Vol] 11.9 g/dL Low 12.0-15.0 [facility] Comment on above: Order Comment: No: D o not add to previous draw Performed By: #### 5 06, 80201 #### [facility] [address] [place] [address], [facility] MCH (RBC) [Entitic mass] 29.0 pg Normal 27.0-33.0 [facility] Comment on above: Order Comment: No: D o not add to previous draw Performed By: #### 5 06, 41081 #### [facility] [address] [place] [address], [facility] MCHC (RBC) [Mass/Vol] 32.4 g/dL Normal 32.0-35.0 [facility] Comment on above: Order Comment: No: D o not add to previous draw Performed By: #### 5 607, 30699 #### [facility] [address] [place] [address], [facility] MCV (RBC) [Entitic vol] 89.5 fL Normal 82.0-98.0 [facility] Comment on above: Order Comment: No: D o not add to previous draw Performed By: #### 5 607, 15664 #### [facility] [address] [place] [address], [facility] Nucleated RBC/100 WBC (Bld) [Ratio] 0 % Normal 0-0 [facility] Comment on above: Order Comment: No: D o not add to previous draw Performed By: #### 5 607, 62359 #### [facility] [address] [facility] [place] [address], [facility] PLAT CNT 226 10*3/uL Normal 150-400 [facility] Comment on above: Order Comment: No: D o not add to previous draw Performed By: #### 5 607, 89514 #### [facility] [address] [place] [place] [address], [facility] RBC (Bld) [#/Vol] 4.10 10*6/uL Normal 3.80-5.00 [facility] Comment on above: Order Comment: No: D o not add to previous draw Performed By: #### 5 607, 96884 #### [facility] [address] [place] [place] [address], [facility] WBC (Bld) [#/Vol] 7.18 10*3/uL Normal 4.00-10.60 [facility] Comment on above: Order Comment: No: D o not add to previous draw Performed By: #### 5 0608, 83984 #### [address] CRP HIGH SENSITIVITYon 04-01 HIGH SENSITIVITY CRP 4.39 mg/L Normal [facility] Comment on above: Order Comment: No: D o not add to previous draw Result Comment: HIGH SENSITIVITY CRP (hs_CRP) REFERENCE RANGES Less than 1.0 mg/L: lowest tertile, lowest risk 1.0-3.0 mg/L: middle tertile, average risk Greater than 3.0 mg/L: highest tertile, highest risk Performed By: #### 3 1079 #### [address] BRAIN WO CONTRASTon 04-01 CT BRAIN WO CONTRAST [facility] Department of Radiology [address] [place] [id number] Patient Name: APRYL DOWNS : 1980 Sex: F Age: Race: Other Pt. Location: [id number] Patient Status: I Ordered Date: 04/01/2019 3:00:00 [...] findings. Electronically signed by:Alice Coello. Transcribed by: [email or web address], User Resident: RYAN GONZALEZ Electronically Signed by: ALICE COELLO @ 04/02/2019 08:59 AM I personally read this/these film(s) with this resident Normal [facility] Comment on above: Order Comment: No: D o not add to previous draw MAGNESIUM BLOODon 04-01-2019 Magnesium [Mass/Vol] 2.2 mg/dL Normal 1.9-2.7 [facility] Comment on above: Order Comment: No: D o not add to previous draw Performed By: #### 4 1000, 61437, 20427 #### [facility] [address] [place] [address], [facility] PHOSPHORUS BLOODon 9 Phosphate [Mass/Vol] 3.9 mg/dL Normal 2.5-5.0 [facility] Comment on above: Order Comment: No: D o not add to previous draw Performed By: #### 4 1000, 04874, 87908 #### [facility] [address] [facility] [place] [address], [facility] POC GLUCOSE LABon 04-01-2019 Glucose [Mass/Vol] 120 mg/dL High 70-100 [facility] Comment on above: Performed By: #### 3 1079 #### [facility] [address] [facility] [place] [address], [facility] SEDIMENTATION RATEon 019 SED RATE 23 mm/hr High 0-20 [facility] Comment on above: Order Comment: No: D o not add to previous draw Performed By: #### 5 0608, 17316 #### [facility] [address] [facility] [place] [address], [facility] CT BRAIN PERFUSIONon 019 CT BRAIN PERFUSION [facility] Department of Radiology [address] [place], [place] [id number] Patient Name: APRYL DOWNS : 1980 Sex: [...] FINDINGS: Please see report for dictation number [id number] CTA neck CTA brain and perfusion were all dictated together Electronically signed by:Etta Cartwright. Transcribed by: [email or web address], User Resident: Electronically Signed by: ETTA CARTWRIGHT @ 04/09/2019 10:35 AM Normal [facility] Comment on above: Order Comment: No: D o not add to previous draw CTA NECKon 03-31-2019 CTA NECK [facility] Department of Radiology [address] [place] [id number] Patient Name: APRYL DOWNS : 1980 [...] neck. No perfusion abnormality Electronically signed by:Etta Cartwright. Transcribed by: [email or web address], User Resident: Electronically Signed by: ETTA CARTWRIGHT @ 03/31/2019 04:31 PM Normal [facility] Comment on above: Order Comment: Strok e transfer, lt side weakness MRI BRAIN W WO CONTRASTon MRI BRAIN W WO CONTRAST [facility] Department of Radiology [address] [place] [id number] Patient Name: APRYL DOWNS : 1980 Sex: F Age: Race: Other Pt. Location: [id number] Patient Status: I Ordered Date: 03/31/2019 4:10:00 [...] setting. 3. Paranasal sinus disease. Approved by:Vickie Vuong on 03/31/2019 8:54 PM EDT. I, Etta Cartwright, have reviewed the images and report and concur with these findings. Electronically signed by:Etta Cartwright. Transcribed by: [email or web address], User Resident: VICKIE VUONG Electronically Signed by: ETTA CARTWRIGHT @ 04/01/2019 09:56 AM I personally read this/these film(s) with this resident Normal [facility] Comment on above: Order Comment: R/O C VA MRI CERVICAL SPINE W WO CONT David 03-31-2019 MRI CERVICAL SPINE W WO CONTRAST [facility] Department of Radiology [address] [place] [address] Patient Name: APRYL DOWNS : 1980 Sex: F Age: Race: Other Pt. Location: [place] [address] Patient Status: I Ordered Date: 03/31/2019 4:05:00 [...] No abnormal post contrast enhancement. Approved by:Vickie Vuong on 03/31/2019 10:00 PM EDT. I, Etta Cartwright, have reviewed the images and report and concur with these findings. Electronically signed by:Etta Cartwright. Transcribed by: [email or web address], User Resident: VICKIE VUONG Electronically Signed by: ETTA CARTWRIGHT @ 04/01/2019 09:53 AM I personally read this/these film(s) with this resident Normal [facility] Comment on above: Order Comment: R/O C ord Compression POC GLUCOSE LABon 03-31-2019 Glucose [Mass/Vol] 118 mg/dL High 70-100 [facility] Comment on above: Performed By: #### 8 5499 #### [facility] [address] [place] [address], [facility] TOX PANEL URINEon 03-31-2019 50 THC Negative Normal NEGATIVE [facility] Comment on above: Order Comment: No: D o not add to previous draw Performed By: #### 3 9351 #### [facility] [address] [place] [address], [facility] BARBITURATES Negative Normal NEGATIVE [facility] Comment on above: Order Comment: No: D o not add to previous draw Performed By: #### 3 7069 #### [facility] [address] [place] [address], [place] Benzodiazepines Ql (U) Negative Normal NEGATIVE Th e [facility] Comment on above: Order Comment: No: D o not add to previous draw Performed By: #### 3 1079 #### [facility] [address] [place] [address], [place] Cocaine Ql (U) Negative Normal NEGATIVE [facility] Comment on above: Order Comment: No: D o not add to previous draw Performed By: #### 3 1079 #### [facility] [address] [place] [address], [place] Methadone Ql (U) Negative Normal NEGATIVE [facility] Comment on above: Order Comment: No: D o not add to previous draw Performed By: #### 3 1079 #### [facility] [address] [place] [address], [place] MONO AMPHET Negative Normal NEGATIVE [facility] Comment on above: Order Comment: No: D o not add to previous draw Performed By: #### 3 1079 #### [facility] [address] [place] [address], [facility] Opiates Ql (U) Negative Normal NEGATIVE [facility] Comment on above: Order Comment: No: D o not add to previous draw Performed By: #### 3 1079 #### [facility] [address] [place] [address], [place] Phencyclidine Ql (U) Negative Normal NEGATIVE [facility] Comment on above: Order Comment: No: D o not add to previous draw Performed By: #### 3 1079 #### [facility] [address] [place] [address], [place] PROPOXYPHENE Negative Normal NEGATIVE [facility] Comment on above: Order Comment: No: D o not add to previous draw Performed By: #### 3 1079 #### [facility] [address] [place] [address], [place] TRICYCLICS Negative Normal NEGATIVE [facility] Comment on above: Order Comment: No: D o not add to previous draw Performed By: #### 3 1079 #### [facility] [address] Vital Signs Date Time Vital Sign Value Performing Clinician Facility 01-02-2025 12:07-0400 Body height 162.6 cm Earnest Dolce DPM FACFAS Work Phone: [facility] 01-02-2025 12:07-0400 Body mass index (BMI) [Ratio] 32.61 kg/m2 Earnest Dolce DPM [facility]AC[facility]AS Work Phone: [facility] 01-02-2025 12:07-0400 Body weight 86.18 kg Earnest Dolce DPM [facility]AC[facility]AS Work Phone: [facility] 01-02-2025 12:07-0400 Diastolic blood pressure 75 mm[Hg] Earnest Dolce DPM [facility]AC[facility]AS Work Phone: [facility] 01-02-2025 12:07-0400 Heart rate 72 /min Earnest Dolce DPM [facility]AC[facility]AS Work Phone: [facility] 01-02-2025 12:07-0400 Systolic blood pressure 124 mm[Hg] Earnest Dolce DPM [facility]AC[facility]AS Work Phone: [facility] 12-04-2024 10:43-0400 Body height 162.6 cm Earnest Dolce DPM [facility]AC[facility]AS Work Phone: [facility] 12-04-2024 10:43-0400 Body mass index (BMI) [Ratio] 32.61 kg/m2 Earnest Dolce DPM [facility]AC[facility]AS Work Phone: [facility] 12-04-2024 10:43-0400 Body weight 86.18 kg Earnest Dolce DPM [facility]AC[facility]AS Work Phone: [facility] 12-04-2024 10:43-0400 Diastolic blood pressure 77 mm[Hg] Earnest Dolce DPM [facility]AC[facility]AS Work Phone: [facility] 12-04-2024 10:43-0400 Heart rate 74 /min Earnest Salomon DPM [facility]AC[facility]AS Work Phone: [facility] 12-04-2024 10:43-0400 Systolic blood pressure 122 mm[Hg] Earnest Salomon DPM [facility]AC[facility]AS Work Phone: [facility] 10-04-2024 11:39-0500 Body height 161.29 cm [facility] 10-04-2024 11:39-0500 Body mass index (BMI) [Ratio] 31.8 kg/m2 [facility] 10-04-2024 11:39-0500 Body weight 83 kg [facility] 10-04-2024 11:39-0500 Diastolic blood pressure 84 mm[Hg] [facility] 10-04-2024 11:39-0500 Heart rate 78 /min [facility] 10-04-2024 11:39-0500 Systolic blood pressure 140 mm[Hg] [facility] 09-24-2024 16:01-0500 Body height 162.6 cm Earnest Salomon DPM [facility]AC[facility]AS Work Phone: [facility] 09-24-2024 16:01-0500 Body mass index (BMI) [Ratio] 32.61 kg/m2 Earnest Dolce DPM [facility] Work Phone: [facility] 09-24-2024 16:01-0500 Body weight 86.18 kg Earnest Dolce DPM [facility] Work Phone: [facility] 09-24-2024 16:01-0500 Diastolic blood pressure 74 mm[Hg] Earnest Salomon DPM [facility] Work Phone: [facility] 09-24-2024 16:01-0500 Heart rate 74 /min Earnest Dolce DPM [facility] Work Phone: [facility] 09-24-2024 16:01-0500 Systolic blood pressure 118 mm[Hg] Earnest Peoplesce DPM [facility]AC[facility]AS Work Phone: [facility] 09-10-2024 14:15-0500 Body height 162.6 cm Earnest Peoplesce DPM [facility]AC[facility]AS Work Phone: [facility] 09-10-2024 14:15-0500 Body mass index (BMI) [Ratio] 32.61 kg/m2 Earnest Salomon DPM [facility] Work Phone: [facility] 09-10-2024 14:15-0500 Body weight 86.18 kg Earnest Salomon DPM [facility]AS Work Phone: [facility] 09-10-2024 14:15-0500 Diastolic blood pressure 72 mm[Hg] Earnest Salomon DPM [facility]AC[facility] Work Phone: [facility] 09-10-2024 14:15-0500 Heart rate 70 /min Earnest Salomon DPM [facility] Work Phone: [facility] 09-10-2024 14:15-0500 Systolic blood pressure 115 mm[Hg] Earnest Salomon DPM [facility]AC[facility] Work Phone: [facility] 06-14-2024 13:32-0400 Body height 161.29 cm [facility] 06-14-2024 13:32-0400 Body mass index (BMI) [Ratio] 34.7 kg/m2 [facility] 06-14-2024 13:32-0400 Body weight 90.26 kg [facility] 06-14-2024 13:32-0400 Diastolic blood pressure 97 mm[Hg] [facility] 06-14-2024 13:32-0400 Heart rate 76 /min [facility] 06-14-2024 13:32-0400 Systolic blood pressure 165 mm[Hg] [facility] 03-19-2024 10:53-0400 Body height 161.29 cm [facility] 03-19-2024 10:53-0400 Body mass index (BMI) [Ratio] 34.5 kg/m2 [facility] 03-19-2024 10:53-0400 Body weight 89.81 kg [facility] 06-14-2023 10:30-0400 Body height 161.29 cm Amanda Villafana Other [employer] Other 06-14-2023 10:30-0400 Body mass index (BMI) [Ratio] 33.13 kg/m2 Amanda Villafana Other [employer] Other 06-14-2023 10:30-0400 Body weight 86.18 kg Amanda Villafana Other [employer] Other 06-14-2023 10:30-0400 Diastolic blood pressure 84 mm[Hg] Amanda Villafana Other [facility] Other 06-14-2023 10:30-0400 Systolic blood pressure 129 mm[Hg] Amanda Villafana Other [employer] Other 02-04-2022 21:00-0400 Diastolic blood pressure 95 mm[Hg] Pete Maldonado [facility] 02-04-2022 21:00-0400 Heart rate 78 /min Pete Joel [facility] 02-04-2022 21:00-0400 Hourly Rounding Pete Maldonado [facility] 02-04-2022 21:00-0400 Mean blood pressure 126 mm[Hg] Pete Joel [facility] 02-04-2022 21:00-0400 Promise to Return Pete Joel [facility] 02-04-2022 21:00-0400 Respiratory rate 14 /min Pete Joel [facility] 02-04-2022 21:00-0400 SaO2% (BldA) [Mass fraction] 99 % Pete Joel [facility] 02-04-2022 21:00-0400 Systolic blood pressure 189 mm[Hg] Pete Joel [facility] 02-04-2022 20:00-0400 Diastolic blood pressure 94 mm[Hg] Pete Joel [facility] 02-04-2022 20:00-0400 Heart rate 77 /min Pete Joel [facility] 02-04-2022 20:00-0400 Mean blood pressure 125 mm[Hg] Pete Joel [facility] 02-04-2022 20:00-0400 Systolic blood pressure 187 mm[Hg] Pete Joel [facility] 02-04-2022 19:00-0400 Diastolic blood pressure 85 mm[Hg] Pete Joel [facility] 02-04-2022 19:00-0400 Heart rate 74 /min Pete Joel [facility] 02-04-2022 19:00-0400 Mean blood pressure 114 mm[Hg] Pete Joel [facility] 02-04-2022 19:00-0400 Respiratory rate 11 /min Pete Joel [facility] 02-04-2022 19:00-0400 SaO2% (BldA) [Mass fraction] 97 % Pete Joel [facility] 02-04-2022 19:00-0400 Systolic blood pressure 172 mm[Hg] Pete Joel [facility] 02-04-2022 18:22-0400 gluc 146 mg/dL Pete Joel [facility] 02-04-2022 18:22-0400 gluc Pete Maldonado [facility] 02-04-2022 17:55-0400 Body temperature 98.24 [degF] Pete Joel [facility] 02-04-2022 17:55-0400 Heart rate 76 /min Pete Joel [facility] 02-04-2022 17:55-0400 Respiratory rate 18 /min Pete Maldonado [facility] Encounters Encounter Date Encounter Type Care Provider Facility Start: 01-02-2025 End: 01-02-2025 Bamboo flowsheet Earnest D Dolce DPM FACFAS Work Phone: [facility] Start: 01-02-2025 End: 01-02-2025 Bamboo flowsheet Earnest D Dolce DPM FACFAS Work Phone: [facility] Start: 01-02-2025 End: 01-02-2025 Clinisync Result Encounter Earnest D Dolce DPM FACFAS Work Phone: [facility] Unsolicited Start: 01-02-2025 End: 01-02-2025 ambulatory EARNEST D DOLCE Not Available Start: 01-02-2025 End: 01-02-2025 Office outpatient visit 25 minutes Earnest D Dolce DPM FACFAS Work Phone: [facility] Comment on above: Hallux valgus of lef t foot (Primary Dx); Plantar fasciitis Start: 12-24-2024 End: 12-24-2024 Clinisync Result Encounter Earnest D Dolce DPM FACFAS Work Phone: [facility] Unsolicited Start: 12-24-2024 End: 12-24-2024 Clinisync Result Encounter Earnest D Dolce DPM FACFAS Work Phone: [facility] Unsolicited Start: 12-04-2024 End: 12-04-2024 Bamboo flowsheet Earnest D Dolce DPM FACFAS Work Phone: [facility] Start: 12-04-2024 End: 12-04-2024 Bamboo flowsheet Earnest D Dolce DPM FACFAS Work Phone: [facility] Start: 12-04-2024 End: 12-04-2024 Telephone encounter Earnest D Dolce DPM FACFAS Work Phone: [facility] Start: 12-04-2024 End: 12-04-2024 Office outpatient visit 25 minutes Earnest D Dolce DPM FACFAS Work Phone: [facility] Comment on above: Hallux valgus of lef t foot (Primary Dx); Plantar fasciitis; Gastrocnemius equinus of left lower extremity Start: 12-04-2024 End: 12-04-2024 ambulatory EARNEST D DOLCE Not Available Start: 11-13-2024 End: 11-13-2024 ambulatory EARNEST D DOLCE Not Available Start: 10-04-2024 End: 10-04-2024 ambulatory [facility] Work Phone: Start: 10-04-2024 End: 10-04-2024 Patient encounter procedure [facility] Work Phone: Start: 09-24-2024 End: 09-24-2024 ambulatory [...] 09-10-2024 Office outpatient new 30 minutes Earnest Salomon DPM FACFAS Work Phone: [facility] Comment on above: Calcaneal spur, left foot (Primary Dx); Plantar fasciitis; Gastrocnemius equinus of left lower extremity Start: 07-06-2024 Non-patient / Non-visit [facility] Work Phone: Start: 06-14-2024 End: 06-14-2024 ambulatory [facility] Work Phone: Start: 06-14-2024 End: 06-14-2024 Patient encounter procedure [facility] Work Phone: Start: 03-19-2024 End: 03-19-2024 ambulatory [facility] Work Phone: Start: 03-19-2024 End: 03-19-2024 Patient encounter procedure [facility] Work Phone: Start: 03-14-2024 Non-patient / Non-visit [facility] Work Phone: Start: 01-09-2024 ambulatory [place] Start: 09-26-2023 End: 09-26-2023 ambulatory Amanda Villafana Other [facility] Other Start: 09-26-2023 Telephone encounter Amanda Villafana [facility] Start: 08-24-2023 ambulatory Mateo ALVA Facility :[facility] Start: 08-05-2023 ambulatory SAMANTA COTA Facility: [facility] Start: 08-04-2023 Telephone encounter Amanda Villafana [facility] Start: 08-04-2023 End: 08-04-2023 ambulatory Amanda Villafana Other [facility] Other Start: 07-05-2023 End: 07-05-2023 ambulatory Amanda Villafana Other [facility] Other Start: 07-05-2023 Telephone encounter Amanda Villafana [facility] Start: 06-28-2023 End: 06-28-2023 ambulatory Amanda Villafana Other [facility] Other Start: 06-28-2023 Telephone encounter Amanda Villafana [facility] Start: 06-27-2023 End: 06-27-2023 ambulatory Amanda Villafana Other [facility] Other Start: 06-27-2023 Telephone encounter Amanda Villafana [facility] Start: 06-23-2023 End: 06-23-2023 ambulatory Amanda Villafana Other [facility] Other Start: 06-23-2023 Telephone encounter Amanda Villafana [facility] Start: 06-14-2023 End: 06-14-2023 ambulatory Amanda Villafana Other [facility] Other Start: 06-14-2023 Office outpatient vi sit 15 minutes Amanda Villafana [facility] Start: 05-31-2023 End: 05-31-2023 ambulatory Amanda Villafana Other [facility] Other Start: 05-31-2023 Telephone encounter Amanda Villafana [facility] Start: 03-08-2023 End: 03-09-2023 ambulatory SAMANTA COTA Facility[facility] Start: 03-08-2023 End: 03-08-2023 Patient encounter procedure SAMANTA COTA [facility] Start: 12-13-2022 End: 12-22-2022 Pre-admission assessment SAMANTA COTA [facility] Start: 12-12-2022 End: 12-12-2022 ambulatory WOOD TANK ERECTOR SAMANTA COTA Facility: Start: 11-29-2022 End: 11-30-2022 ambulatory TRESA COTA Facility:[facility] Start: 10-13-2022 ambulatory TRESA COTA Facil ity:[facility] Start: 09-14-2022 End: 09-15-2022 ambulatory TRESA COTA Facility:[facility] Start: 06-09-2022 End: 06-10-2022 ambulatory TRESA COTA Facility:[facility] Start: 05-06-2022 End: 05-26-2022 Pre-admission assessment SAMANTA COTA [facility] Start: 02-15-2022 End: 02-16-2022 ambulatory TRESA COTA Facility:[facility] Start: 02-04-2022 End: 02-04-2022 Emergency department patient visit Pete Maldonado [facility] Start: 12-31-2021 End: 12-31-2021 ambulatory TRESA COTA Facility:[facility] Start: 03-31-2019 End: 04-02-2019 Evaluation and management of inpatient PROVIDER UNKNOWN Facility:[facility] Procedures Date Procedure Procedure Detail Performing Clinician Start: 01-02-2025 XR FOOT LT MIN 3V Earnest D Dolce DPM FACFAS Work Phone: Start: 01-02-2025 ALL CBC WITH AUTO DIFF Earnest D Dolce DPM FACFAS Work Phone: Start: 12-24-2024 ECG 12-LEAD Earnest D Dol ce DPM FACFAS Work Phone: Start: 09-19-2020 H/O: section History of section Earnest Dolce DPM FACFAS Work Phone: Start: 10-28-2011 Microscopic observat ion [Identifier] in Cervix by Cyto stain Earnest Dolce DPM FACFAS Work Phone: section Pete Maldonado section Pete Maldonado H/O: tubal ligation Pete sigala Plan of Treatment Date Care Activity Detail Author Start: 01-15-2025 End: 01-15-2025 Patient encounter procedure 01/15/2025 10:30 AM EDT Office Visit [facility] [address] [place] [phone] Earnest Salomon, DPM FACFAS [address] [place] [address] [facility] Start: 01-02-2025 End: 01-02-2025 Patient encounter procedure 01/02/2025 10:40 AM EDT Office Visit [facility] [address] [place] [address] Earnest Salomon, DPM FACFAS [address] [place] [address] [facility] Start: 12-04-2024 End: 12-04-2024 Clinical Support 12/04/2024 9:50 AM EDT Clinical Support [facility] [address] [place] [phone] Earnest Salomon, DPM FACFAS [address] [place] [address] Arrived [facility] Comment on above: Arrived Start: 10-15-2024 End: 10-15-2024 Clinical Support 10/15/2024 3:00 PM EST Clinical Support [facility] [address] [place] [phone] Earnest Salomon, DPM FACFAS [address] [facility] [place] [address] [facility] Start: 04-29-2024 Influenza vaccination Influenza Vacc ine (#1) [facility] Start: 2018 Screening for malign ant neoplasm of breast Mammogram [facility] Start: 10-27-2016 Screening for malign ant neoplasm of cervix [facility] Start: 1997 Urine screening for protein Diabetes: Urine Protein Screening [facility] Start: 1988 Glaucoma screening Diabetes: R etinopathy Screening [facility] Start: 1978 Hemoglobin A1c measurement Diabetes: Hemoglobin A1C [facility] Start: 1978 Screening for malign ant neoplasm of colon [facility] XR Foot - left 3 Views XR foot 3 + views left Imaging Routine Hallux valgus of left foot Ordered: 01/02/2025 [facility] Work Phone: Comment on above: Ordered: 01/02/2025 XR Foot - left GE 3 Views [facility] Payers Date Payer Category Payer Private Health Insurance [facility] MED[facility] [id number] 1978 Unknown [id number]. 647 1978 Unknown [id number] .[id number]. 593 1978 Unknown [id number]. 593 1978 Unknown [id number] 2.0.1.009545.3.579.2. 593 1978 Unknown [id number]. 593 1978 Unknown [id number]. 593 1978 Unknown [id number] 2.16.840.1.824658.3.579.2. 593 1978 Unknown [id number] 2.16.840.1.004956.3.579.2. 593 1978 Unknown [id number] 2.16.840.1.873665.3.579.2. 727 1978 Unknown [id number] 2.16.840.1.247343.3.579.2. 727 1978 Unknown [id number] 2.16.840.1.643511.3.579.2. 727 1978 Unknown [id number] 2.16.840.1.204072.3.579.2. 1259 1978 Unknown [id number] 2.16.840.1.580608.3.579.2. 1259 1978 Unknown [id number] 2.16.840.1.704883.3.579.2. 1259 1978 Unknown [id number] 2.16.840.1.452816.3.579.2. 1259 1978 Unknown [id number] 2.16.840.1.026745.3.579.2. 1259 1959 Unknown [id number] 1959 Unknown [id number] Unknown [facility] [id number] Social History Date Type Detail Facility Tobacco Unknown if ever smoked [facility] Comment on above: denies Start: 09-10-2024 End: 01-02-2025 Sex Assigned At Female [facility] Tobacco smoking status No Smokin g Status Entered [facility] Start: 06-14-2023 End: 06-14-2023 Tobacco smoking status WIIS Ex-smoker (finding) [facility] Start: 1980 Sex Assigned At Female F [facility] Tobacco smoking stat [facility] Tobacco smoking consumption unknown [facility] Start: 1980 Sex assigned at Not on file [facility] Start: 09-10-2024 [facility] Work Phone: Start: 09-10-2024 Tobacco use and exposure Smokeless tobacco non-user [facility] Start: 09-10-2024 End: 01-02-2025 Alcoholic beverage intake Defer [facility] Start: 09-10-2024 End: 01-02-2025 History of Social function [facility] Start: 10-04-2024 Sex Female (finding) [facility] Clinical Notes 11-07-2020 to 01-02-2025 Earnest Salomon DPM FACFAS - 01/02/2025 11:40 AM EDTTelephone Encounter - Earnest Salomon, DPStu FACFAS - 12/04/2024 10:40 PM EDTTelephone Encounter - Earnest Salomon, DPM FACFAS - 12/04/2024 10:40 PM EDT Note Date & Type Note Facility 01-02-2025 History of Presen t illness Narrative Images from the original note were not included. mdePatient: Apryl Downs : 1980 PCP: Amanda Villafana MD SUBJECTIVE This is a 44 y.o. female that presents today for follow-up of plantar fasciitis left foot. They state they have been stretching and icing as directed. They relate mild to moderate improvement since their last visit. The patient rates the pain on a scale from 1-10 as an 8 with 10 being the worst pain of their life. She has not having any improvement and she is exhausted numerous conservative care she wishes for definitive treatment 2nd chief complaint of a painful bunion left foot hurts when she walks performs activities of daily living has progressively worsened over time. Attempted wider shoes pads anti-inflammatory medications to no avail The patient is here to discuss their upcoming surgery. Planned procedure is Trell bunionectomy endoscopic plantar fasciotomy left foot. The patient has exhausted conservative care and wishes for surgical intervention. They have attempted numerous conservative options including: Shoe gear modifications, anti-inflammatory medications both steroid all and nonsteroidal, orthotic devices, cortisone injections, immobilization, physical therapy to no avail. They are here to sign consent forms and to address any other questions that may exist. Allergies: Allergies Allergen Reactions Oxycodone-Acetaminophen Rash Has [...] arthritis Neurologic: Denies burning, tingling, transient paralysis Clinisync Result Encounter on 01/02/2025 Component Date Value Ref Range Status SODIUM 01/02/2025 133 (L) 136 - 145 mmol/L Final POTASSIUM 01/02/2025 4.1 3.5 - 5.1 mmol/L Final CHLORIDE 01/02/2025 97 (L) 98 - 107 mmol/L Final CARBON DIOXIDE 01/02/2025 32.2 (H) 21.0 - 32.0 mmol/L Final ANION GAP 01/02/2025 7.9 Final GLUCOSE 01/02/2025 132 (H) 74 - 106 mg/dL Final BLOOD UREA NITROGEN 01/02/2025 16.0 7.0 - 18.0 mg/dL Final CREATININE 01/02/2025 0.83 0.55 - 1.02 mg/dL Final TBH EGFR-AF BHUTANESE 01/02/2025 >60 >=60 mL/min/1.73m 2 Final TBH EGFR-NON AF BHUTANESE 01/02/2025 >60 >=60 mL/min/1.73m 2 Final BUN CREATININE RATIO 01/02/2025 19.3 Final CALCIUM 01/02/2025 8.7 8.5 - 10.1 mg/dL Final Clinisync Result Encounter on 01/02/2025 Component Date Value Ref Range Status [facility] WBC 01/02/2025 7.0 4.0 - 11.0 10 3/uL Final [facility] RBC 01/02/2025 4.39 4.20 - 5.40 10 6/uL Final TB HGB 01/02/2025 12.6 12.0 - 16.0 g/dL Final TBH HCT 01/02/2025 37.9 36.0 - 48.0 % Final [facility] MCV 01/02/2025 86.3 81.0 - 99.0 fL Final [facility] MCH 01/02/2025 28.7 26.7 - 34.0 pg Final [facility]H MCHC 01/02/2025 33.2 29.9 - 35.2 g/dL Final [facility] RDW 01/02/2025 13.9 11.0 - 15.0 % Final [facility] PLT 01/02/2025 263 150 - 450 10 3/uL Final [facility]H MPV 01/02/2025 10.1 9.5 - 13.5 fL Final NEUTROPHILS PERCENT AUTO 01/02/2025 64.9 43.0 - 75.0 % Final LYMPHOCYTES PERCENT AUTO 01/02/2025 23.4 20.5 - 60.0 % Final MONOCYTES PERCENT AUTO 01/02/2025 9.2 1.7 - 12.0 % Final TBH EO % 01/02/2025 1.6 0.9 - 7.0 % Final BASOPHILS PERCENT AUTO 01/02/2025 0.6 0.2 - 2.0 % Final IMMATURE GRANULOCYTES PCT AUTO 01/02/2025 0.3 0.0 - 0.5 % Final NEUTROPHILS ABSOLUTE AUTO 01/02/2025 4.6 1.4 - 6.5 10 3/uL Final LYMPHOCYTES ABSOLUTE AUTO 01/02/2025 1.7 1.2 - 3.8 10 3/uL Final MONOCYTES ABSOLUTE AUTO 01/02/2025 0.7 0.3 - 0.8 10 3/uL Final TBH EO # 01/02/2025 0.1 0.0 - 0.7 10 3/uL Final BASOPHILS ABSOLUTE AUTO 01/02/2025 0.0 0.0 - 0.1 10 3/uL Final IMMATURE GRANULOCYTES ABS AUTO 01/02/2025 0.02 0.00 - 0.03 10 3/uL Final OBJECTIVE Physical Examination: DERM: Positive hair growth to b/l feet with good skin turgor noted. Negative openings in skin VASC: DP /PT were palpable bilateral. Capillary refill time < 3 seconds Digits 1-5 bilateral NEURO: [place] Lupe 5.07 monofilament was intact B/L. Vibratory sensation was intact B/L Musculoskeletal: Muscle strength was +5 over 5 all intrinsic and extrinsic muscles tested. There is less less pain with direct palpation of the medial band of the plantar fascia Mild pain throughout the course of the [...] motion of the ankle or subtalar joint. Grade 2 hallux abductovalgus deformity noted left foot pain with direct palpation of the medial eminence pain with range of motion of the great toe joint toe is reducible in nature Cardiac: Normal rate and rhythm no murmurs detected Respiratory: Lungs appear to be clear no rhonchi or wheezes noted Radiographs: AP/MO/LAT: X-rays will be taken to [facility] ASSESSMENT 1. Plantar fasciitis 2. Hallux valgus of left foot PLAN The patient was educated on the etiology of plantar fasciitis. I recommended the patient continue stretching and icing on a regular basis. I discussed an endoscopic plantar fasciotomy as well as a bunionectomy of the left great toe joint she is exhausted numerous conservative therapies and wishes for surgical intervention. Planned procedure would be an Trell bunionectomy left foot as well as a endoscopic plantar fasciotomy left foot The patient was educated on the pre, tam, postoperative course of the procedure in great detail. We discussed further conservative therapies which the patient has attempted and has failed. I discussed the surgical procedure in great detail including the risks and possible complications. We discussed the following complications in great detail including but not limited to: Pain, infection, prolonged swelling, numbness, tingling, burning, nonhealing wound, nonunion, malunion, chronic pain, development of complex regional pain syndrome, development of deep venous thrombosis. Patient fully understood all possible risks and complications. All questions have been asked and answered. Awaiting laboratory findings and clinical exam patient was cleared for MAC with popliteal block anesthesia MANUEL Wasserman documented in this encounter [facility] 12-04-2024 Telephone encounter Note Form atting of this note is different from the original. Phone #: [phone] Insurance: Payor: [facility] MEDICAID / Plan: [facility] [place] / Product Type: *No Product type* / Preferred Date/Time: First Available [x] SULEMA [] Patient Name: Apryl Downs : 1980 Surgeon: Dr. Earnest Salomon [x] Dr. Hans Salomon [] Location: [facility] [x] [facility] [] [facility] [] Procedure(s): 1. Trell bunionectomy left foot 2. Endoscopic plantar fasciotomy left foot CPT Code(s): 35475. 40366 Diagnosis: ICD-10-CM 1. Plantar fasciitis M72.2 2. Hallux valgus of left foot M20.12 Procedure Time: 30 min [] 1 Hour [x] 1.5 Hour [] 2 Hours [] Anesthesia: MAC [x] General [] Local [] Popliteal Block [] Position: Supine [x] Prone [] Lateral [] Special Requests: C-arm [] Pulse Lavage [] Vers[employer]Jet [] Special Equipment: Arthrex plate /screws [] Internal brace [] Arthrex FiberTak [] Biopro Staple [] Biopro Sylvester Impant [] Other [] Pre-op Orders: Abx 30 min Prior: 2g Ancef [x] Clindamycin 600mg [] Vancomycin 1 g [] Post-op WB: Partial WB [x] Non-WB [] Crutches [] Walker [] Knee Scooter [] PCP Clearance: Amanda Villafana MD Other Clearance: Cardiology [] Rheumatology [] Other [] [facility] 12-04-2024 Miscellaneous Notes Formattin g of this note is different from the original. Phone #: [phone] Insurance: [facility]: [facility] / Plan: [facility] [place] / Product Type: *No Product type* / Preferred Date/Time: First Available [x] SULEMA [] Patient Name: Apryl Downs : 1980 Surgeon: Dr. Earnest Salomon [x] Dr. Hans Salomon [] Location: [facility] [x] [facility] [] [facility] [] Procedure(s): 1. Trell bunionectomy left foot 2. Endoscopic plantar fasciotomy left foot CPT Code(s): 15002. 24963 Diagnosis: ICD-10-CM 1. Plantar fasciitis M72.2 2. Hallux valgus of left foot M20.12 Procedure Time: 30 min [] 1 Hour [x] 1.5 Hour [] 2 Hours [] Anesthesia: MAC [x] General [] Local [] Popliteal Block [] Position: Supine [x] Prone [] Lateral [] Special Requests: C-arm [] Pulse Lavage [] Vers[employer]Jet [] Special Equipment: Arthrex plate /screws [] Internal brace [] Arthrex FiberTak [] Biopro Staple [] Biopro Sylvester Impant [] Other [] Pre-op Orders: Abx 30 min Prior: 2g Ancef [x] Clindamycin 600mg [] Vancomycin 1 g [] Post-op WB: Partial WB [x] Non-WB [] Crutches [] Walker [] Knee Scooter [] PCP Clearance: Amanda Villafana MD Other Clearance: Cardiology [] Rheumatology [] Other [] documented in this encounter [facility] 12-04-2024 History of Presen t illness Narrative Images from the original note were not included. ,ePatient: Apryl Griffina : 1980 PCP: Amanda Villafana MD SUBJECTIVE This is a 44 y.o. female that presents today for follow-up of plantar fasciitis left foot. They state they have been stretching and icing as directed. They relate mild to moderate improvement since their last visit. The patient rates the pain on a scale from 1-10 as an 8 with 10 being the worst pain of their life. She has not having any improvement and she is exhausted numerous conservative care she wishes for definitive treatment 2nd chief complaint of a painful bunion left foot hurts when she walks performs activities of daily living has progressively worsened over time. Attempted wider shoes pads anti-inflammatory medications to no avail Allergies: Allergies Allergen Reactions Oxycodone-Acetaminophen Rash Has [...] < 3 seconds Digits 1-5 bilateral NEURO: [place] Lupe 5.07 monofilament was intact B/L. Vibratory sensation was intact B/L Musculoskeletal: Muscle strength was +5 over 5 all intrinsic and extrinsic muscles tested. There is less less pain with direct palpation of the medial band of the plantar fascia Mild pain throughout the course of the [...] motion of the ankle or subtalar joint. Grade 2 hallux abductovalgus deformity noted left foot pain with direct palpation of the medial eminence pain with range of motion of the great toe joint toe is reducible in nature Radiographs: AP/MO/LAT: next visit ASSESSMENT 1. Plantar fasciitis 2. Gastrocnemius equinus of left lower extremity 3. Hallux valgus of left foot PLAN The patient was educated on the etiology of plantar fasciitis. I recommended the patient continue stretching and icing on a regular basis. I discussed an endoscopic plantar fasciotomy as well as a bunionectomy of the left great toe joint she is exhausted numerous conservative therapies and wishes for surgical intervention. Planned procedure would be an Trell bunionectomy left foot as well as a endoscopic plantar fasciotomy left foot The patient was educated on the pre, tam, postoperative course of the procedure in great detail. We discussed further conservative therapies which the patient has attempted and has failed. I discussed the surgical procedure in great detail including the risks and possible complications. We discussed the following complications in great detail including but not limited to: Pain, infection, prolonged swelling, numbness, tingling, burning, nonhealing wound, nonunion, malunion, chronic pain, development of complex regional pain syndrome, development of deep venous thrombosis. Patient fully understood all possible risks and complications. All questions have been asked and answered. Earnest Salomon DPM FACFAS documented in this encounter [facility] 09-24-2024 History of Presen t illness Narrative [...] < 3 seconds Digits 1-5 bilateral NEURO: [place] Lupe 5.07 monofilament was intact B/L. Vibratory [...] weeks. MANUEL Wasserman documented in this encounter [facility] 09-10-2024 History of Presen t illness [...] numerous conservative therapies including: shoe gear modifications, [id number]-[id number] anti-inflammatory medications, zkvk-egl-wmoetjo orthotic devices to no avail. They rate [...] < 3 seconds Digits 1-5 bilateral NEURO: [place] Lupe 5.07 monofilament was intact B/L. Vibratory [...] and symptoms of post-static dyskinesia, 2.) Prevent ybj-koyfqd-kyirdix contracture of the Achilles tendon. 3.) Provide [...] Guidelines. MANUEL Wasserman documented in this encounter [facility] 09-26-2023 Evaluation note Encounter Date Diagnosis Assessment Notes Aug, Type 2 diabetes mellitus with hyperglycemia , without long-term current use of insulin (ICD-10 - E11.65) [facility] Other 11-07-2023 Evaluation note* Encounter Date Diagnosis Assessment Notes Treatment Notes Treatment Clinical Notes Jun, Other iron deficiency anemia (ICD-10 - D50.8) [facility] Other 10-31-2023 Evaluation note* Encounter Date Diagnosis Assessment Notes Treatment Notes Treatment Clinical Notes May, Type 2 diabetes mellitus with hyperglycemia, without long-term current use of insulin (ICD-10 - E11.65) [facility] Other 10-30-2023 Evaluation note* Encounter Date Diagnosis Assessment Notes Treatment Notes Treatment Clinical Notes May, Type 2 diabetes mellitus with hyperglycemia, without long-term current use of insulin (ICD-10 - E11.65) [facility] Other 10-17-2023 Evaluation note* Encounter Date Diagnosis Assessment Notes Treatment Notes Treatment Clinical Notes May, Other iron deficiency anemia (ICD-10 - D50.8) obtain labs. recheck due to fatigue May, Type 2 diabetes mellitus with hyperglycemia, without long-term current use of insulin (ICD-10 - E11.65) Due for A1C will reach out to [facility] lenora caruso. Presently it is covered, but her glucose of 220 indicates dose increase. Will sent paperwork for PA again. [facility] Other 10-03-2023 Evaluation note* Encounter Date Diagnosis Assessment Notes Treatment Notes Treatment Clinical Notes May, Type 2 diabetes mellitus with hyperglycemia, without long-term current use of insulin (ICD-10 - E11.65) [facility] Other 07-11-2023 Evaluation + Plan note Diagnostic Tests Pending * T3 Free 03/08/23 [facility]06-[facility]2023 History general Narrative - Reported* Type Description Date Medical History DM Medical History hypothyroid Medical History Anemia Surgical History C SECTION X's 2 Surgical History Left Oophorectomy 01/2023 Hospitalization History SEE ABOVE SURGERY [facility] Other 03-12-2021 NotePatient Outreach ([facility]OV[facility]) APRYL DOWNS ([id number]) 1980 F Date Time Provider Department 11/07/20 [facility] During your visit today, we recorded the following information about you: Allergies As of Date: 11/07/2020 Noted Allergy Reaction OXYCODONE-ACETAMINOPHEN 09/09/2020 2 - Rash Comments: Has tolerated norco in the past Date Reviewed: 10/03/2020 Reviewed by: Bharti Lorenz (Carmelita) CARMELITA Zavala - Fully Assessed Order(s):SARS-COVID VACCINE 1ST DOSE APPT [[id number]] Order #: [id number] FUTURE Prescriptions as of 11/07/2020 Sig: METFORMIN [...] Heart murmur [R01.1] 10/02/2020 More... Patient is Hoahaoism [Z78.9] 10/02/2020 More... Encounter Status:Closed by HODAN CAPPS on 11/10/20[facility] Evaluation + Plan note No data available for this section [facility] note[facility] InformationNort [employer] Other Evaluation note* Diagnosis Onset Date Resolution Status Iron deficiency anemia acute Left foot pain acute Type 2 diabetes mellitus with hyperglycemia [facility] Work Phone: Evaluation note* Diagnosis Onset Date Resolution Status Iron deficiency anemia acute Left foot pain acute Type 2 diabetes mellitus with hyperglycemia acute Type 2 diabetes mellitus with hyperglycemia [facility] Work Phone: Evaluation note* Diagnosis Calcaneal spur, left foot- Primary Plantar fasciitis Plantar fascial fibromatosis Gastrocnemius equinus of left lower extremity documented in this encounter [facility]* Diagnosis Gastrocnemius equinus of left lower extremity- Primary Plantar fasciitis Plantar fascial fibromatosis Calcaneal spur, left foot documented in this encounter [facility] HealthcareEvaluation noteNo assessment information [facility] Work Phone: Evaluation note* Diagnosis Plantar fasciitis- Primary Plantar fascial fibromatosis Hallux valgus of left foot documented in this encounter [facility]* Diagnosis Hallux valgus of left foot- Primary Plantar fasciitis Plantar fascial fibromatosis Gastrocnemius equinus of left lower extremity documented in this encounter [facility] Healthcare[facility] note* Diagnosis Hallux valgus of left foot- Primary Plantar fasciitis Plantar fascial fibromatosis [facility] No data available for this section [facility] No data available for this section [facility] Summary Purpose Family History No Family [...] 23 8:35am Hospital Course Note MR#: [id number] [facility] Pt. Name: Apryl Downs Admitted: 03/31/2019 Discharged: 04/02/2019 Date of : 1980 Physician: London Saleh MD DISCHARGE SUMMARY PRIMARY CARE PHYSICIAN: Unknown. [...] a 38-year-old female, who presented to [facility] with complaints of left-sided weakness and facial droop. The patient states she had driven herself to the emergency department. The patient states that she was at work when she st (more content not included)... Note HNO ID: [id number] Author: Anjali Muñoz Service: Gynecology Author Type: Physician Type: Brief Op Note Filed: 10/03/2020 8:14 AM Note Text: BRIEF OPERATIVE / PROCEDURE NOTE LOG ID: [id number] SURGERY/PROCEDURE DATE: 10/03/2020 INCISION/PROCEDURE START TIME: 7:57 AM INCISION CLOSE/PROCEDURE END TIME: 8:07 AM SURGEON(S)/PROCEDURALIST(S) AND FISH HATCHERY ASSISTANT(S): Surgeon(s) and Role: * Ayah Zaidi No [...] the case. Procedure Findings Note HNO ID: [id number] Author: Anjali Muñoz Service: Gynecology Author Type: Physician Type: Brief Op Note Filed: 10/03/2020 8:14 AM Note Text: BRIEF OPERATIVE / PROCEDURE NOTE LOG ID: [id number] SURGERY/PROCEDURE DATE: 10/03/2020 INCISION/PROCEDURE START TIME: 7:57 AM INCISION CLOSE/PROCEDURE END TIME: 8:07 AM SURGEON(S)/PROCEDURALIST(S) AND FISH HATCHERY ASSISTANT(S): Surgeon(s) and Role: * Ayah Zaidi No [...] iron deficienc y anemia (D50.8) Referral Organization [facility] emilee Referring Provider First Name Amanda Referring Provider Last Name Khalida Referring Provider Specialty [facility] Referred Organization [facility] Referred Address [facility][note 3] [address], [place],[address] Referred Provider Specialty Hematology Referral Priority Routine [...] section and content) DATE CREATED AUTHOR 04/28/2019 [facility] DATE CREATED AUTHOR AUTHOR'S ORGANIZ ATION 10/07/2020 [facility] DATE CREATED AUTHOR AUTHOR'S ORGANIZ ATION 10/07/2020 [facility] DATE CREATED AUTHOR AUTHOR'S ORGANIZ ATION 10/03/2021 [facility] DATE CREATED AUTHOR AUTHOR'S ORGANIZ ATION 12/15/2022 [facility] DATE CREATED AUTHOR AUTHOR'S ORGANIZ ATION 08/25/2023 [facility] DATE CREATED AUTHOR AUTHOR'S ORGANIZ ATION 03/21/2024 [place] DATE CREATED AUTHOR AUTHOR'S ORGANIZ ATION 01/05/2025 [facility] d[facility] Specialists EPIC (unrecognized sect ion and content) No Status Records FoundNo Status Records Found Care Team (unrecognized sect ion and content) Team Status: Active Member Role Status Dates Amanda Villafana MD Primary Care Provider Active Team Status: Active Member Role Status Dates Amanda Villafana MD Primary Care Provider Active Start: July 06, 2024 Dona Cartwright CMA Attending Provider Active Start: July 06, 2024 Team Status: Inactive Member Role Status Dates Amanda Villafana MD Primary Care Provide r, Attending Provider Active Start: October 04, 2024 End: October 04, 2024 Team Status: Inactive Member Role Status [...] Provider Active St art: March 14, 2024 Computer Forensics Technician Relationship Specialty Start Date End Date Amanda Villafana MD [address] [place] [facility] [place] [address] PCP - General Family Medicine 09/10/24 Samanta Cota NP [address] [place] [phone] Nurse Practitioner Family Medicine 03/28/24 Computer Forensics Technician Relationship Specialty Start Date End Date Amanda Villafana MD [address] [place] [facility] [place] [address] PCP - General Family Medicine 09/10/24 Samanta Cota NP [address] [place] [phone] Nurse Practitioner Family Medicine 03/28/24 Computer Forensics Technician Relationship Specialty Start Date End Date Amanda Villafana MD [address] [place] [facility] [place] [address] PCP - General Family Medicine 09/10/24 Samanta Cota NP [address] [place] [phone] Nurse Practitioner Family Medicine 03/28/24 Computer Forensics Technician Relationship Specialty Start Date End Date Amanda Villafana MD [address] [place] [facility] [place] [address] PCP - General Family Medicine 09/10/24 Samanta Cota NP [address] [place] [phone] Nurse Practitioner Family Medicine 03/28/24 Computer Forensics Technician Relationship Specialty Start Date End Date Amanda Villafana MD [address] [place] [facility] [place] [phone] PCP - General Family Medicine 09/10/24 Samanta Cota NP [address] [place] [phone] Nurse Practitioner Family Medicine 03/28/24 Computer Forensics Technician Relationship Specialty Start Date End Date Amanda Villafana MD [address] [place] [address] PCP - General Family Medicine 09/10/24 Samanta Cota NP [address] [place] [phone] Nurse Practitioner Family Medicine 03/28/24 Computer Forensics Technician Relationship Specialty Start Date End Date Amanda Villafana MD [address] [place] [address] PCP - General Family Medicine 09/10/24 Samanta Cota NP [address] [place] [phone] Nurse Practitioner Family Medicine 03/28/24 Computer Forensics Technician Relationship Specialty Start Date End Date Amanda Villafana MD [address] [place] [phone] PCP - General Family Medicine 09/10/24 Samanat Cota NP [address] [place] [phone] Nurse Practitioner Family Medicine 03/28/24 Computer Forensics Technician Relationship Specialty Start Date End Date Amanda Villafana MD [address] [place] [phone] PCP - General Family Medicine 09/10/24 Samanta Cota NP [address] [place] [phone] Nurse Practitioner Family [facility] 03/28/24 Computer Forensics Technician Relationship Specialty Start Date End Date Amanda Villafana MD [address] [place] [phone] PCP - General [facility] 09/10/24 Samanta Cota NP [address] [place] [phone] Nurse Practitioner Family Medicine 03/28/24 REASON FOR VISIT (unrecogniz ed section and content) Reason Comments Consent Or Instructions Surgery consult for LT foot Reason Comments Plantar Fasciitis F/U LT foot plantar fasciitis inj x3 Reason Comments Plantar Fasciitis F/U LT foot plantar fasciitis inj x1 Reason Comments Heel Pain LT heel pain [id number] month Follow up Goals (unrecognized section and [...] BE BASED ON THE PRIMARY CLINICAL RECORDS. [facility] provides no warranty or guarantee of the accuracy or completeness of information in this document.
--- NOTE | 2025-01-06 15:47 | ED.GENADUL1 ---
HPI HPI - General Adult General Chief complaint: Dizziness Stated complaint: WEAKNESS, VOMITING, MIGRAINE Time Seen by Provider: 01/06/25 15:38 Source: patient Mode of arrival: walk-in Limitations: no limitations History of Present Illness HPI narrative: 44-year-old female presents to the emergency department for headache. She woke up with this morning. No trauma fever stiff neck and this is much like her headaches in the past. She does not see a neurologist. The pain is severe and continuous and at the top of her head. She took Aleve and amitriptyline at home but it did not seem to help. Related Data Home Medications ?Medication ?Instructions ?Recorded ?Confirmed levothyroxine 137 mcg tablet 137 mcg PO .aday 02/10/23 07/05/24 tirzepatide 2.5 mg/0.5 mL 15 mg subcut QWEEK 02/10/23 07/05/24 subcutaneous pen injector (Geeuncontrerasro) metformin 750 mg tablet,extended 750 mg PO DAILY 08/06/23 07/05/24 release 24 hr lisinopril 20 mg tablet 20 mg PO QDAY 07/05/24 07/05/24 Previous Rx's ?Medication ?Instructions ?Recorded lisinopril 20 mg tablet 20 mg PO DAILY #30 tabs 07/05/24 svozydfywb-vndolibuyptxl-fixklhlm 1 cap PO Q8H PRN pain #20 caps 10/31/24 50 mg-300 mg-40 mg capsule (Fioricet) jiuqninufr-nsatuzcjfxuge-iotkqtmo 1 cap PO Q6H PRN pain 5 days #20 01/06/25 50 mg-300 mg-40 mg capsule caps (Fioricet) Allergies Allergy/AdvReac Type Severity Reaction Status Date / Time oxycodone (From Percocet) AdvReac Intermediate Rash Verified 10/31/24 12:32 Opioid HPI Opioid Management Most Recent Opioid Data: Last Pain Scale 8 Today, 18:03 Last MAR Pain Assessment Today, 16:13 Review of Systems ROS Narrative A ten point review of systems is negative except as noted above. [facility] Medical History (Updated 01/06/25 @ 18:35 by Petros Ferrer MD) Hypothyroidism ?E03.9 - Hypothyroidism, unspecified (ICD-10) Familial hyperthyroidism ?E05.80 - Other thyrotoxicosis without thyrotoxic crisis or storm (ICD-10) HTN (hypertension) ?I10 - Essential (primary) hypertension (ICD-10) Diabetes ?E11.9 - Type 2 diabetes mellitus without complications (ICD-10) Family History (Updated 02/10/23 @ 04:43 by Jazmine Doyle) Mother Family history of COPD (chronic obstructive pulmonary disease) Family history of diabetes mellitus Family history of hypertension Sister Family history of cancer Family history of diabetes mellitus Father Family history of cancer Social History (Updated 02/10/23 @ 04:44 by Jazmine Doyle) Within the past year, how often did you have a drink containing alcohol: never Within the past year, how often did you have six or more drinks on one occasion: never Score interpretation: A score less than 3 is consistent with normal alcohol consumption. 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 Known occupational exposures/hazards: No Highest level of school completed/degree received: GED or equivalent Do you want help with school or training: No Are you now , , , , never or living with a partner: In a typical week, how many times do you talk on the telephone with family, friends, or neighbors: 3 or more times per week How often do you get together with friends or relatives: 3 or more times per week How often do you attend yazidi or sabianist services: never Do you belong to any clubs or organizations such as yazidi groups unions, fraternal or athletic groups, or school groups: no Total score: 1 Score interpretation: A score of less than or equal to 1 indicates the most socially isolated. Little interest or pleasure in doing things: not at all Feeling down, depressed, or hopeless: not at all Feel stressed/tense/nervous/anxious/difficulty sleeping: not at all Due to disability, difficulty making decisions: No Do you think of yourself as: straight/heterosexual Gender Identity: female Exam Narrative Exam Narrative: Nurses note and vital signs reviewed and patient is not hypoxic. General: The patient appears in no apparent distress. Patient appears uncomfortable. Skin: Warm, dry, no pallor noted. There is no rash noted. Head: Normocephalic, atraumatic; neck supple Eye: Normal conjunctiva, no drainage Ears, Nose, Mouth, and Throat: oral mucosa is moist. Nares patent. Cardiovascular: Regular Rate and Rhythm Respiratory: Patient is in no distress, no accessory muscle use, lungs are clear to auscultation, no wheezing, rales or rhonchi Back: non-tender GI: Soft and nontender Musculoskeletal: The patient has no evidence of calf tenderness, no pitting edema, symmetrical pulses noted bilaterally Neurological: A&O, normal speech Psychiatric: Cooperative Constitutional Vital Signs, click to edit/add: Last Vital Signs Temp 97.8 F 01/06/25 15:37 Pulse 74 01/06/25 18:07 Resp 18 01/06/25 18:07 BP 141/75 01/06/25 18:07 Pulse Ox 100 01/06/25 18:07 O2 Del Method Room Air 01/06/25 15:37 Course Vital Signs Vital signs: Vital Signs Temperature 97.8 F 01/06/25 15:37 Pulse Rate 66 01/06/25 15:37 Respiratory Rate 18 01/06/25 15:37 Blood Pressure 138/72 01/06/25 15:37 Pulse Oximetry 97 01/06/25 15:37 Oxygen Delivery Method Room Air 01/06/25 15:37 Temperature 97.8 F 01/06/25 15:37 Pulse Rate 74 01/06/25 18:07 Respiratory Rate 18 01/06/25 18:07 Blood Pressure 141/75 01/06/25 18:07 Pulse Oximetry 100 01/06/25 18:07 Oxygen Delivery Method Room Air 01/06/25 15:37 Medical Decision Making MDM Narrative Medical decision making narrative: Her workup including CT brain is negative. She is feeling improved after being given IV Toradol, Solu-Medrol, Benadryl, and then morphine. She is able to be discharged home. Treatment diagnosis and follow-up were discussed with the patient. Differential Diagnosis Differential Diagnosis: Migraine headache, nonspecific headache, intracranial mass, ICH Lab Data Lab results reviewed: Yes I reviewed the patient's lab results Labs: Lab Results 01/06/25 Range/Units 15:55 WBC 7.0 (4.0-11.0) 10^3/uL RBC 4.53 (4.20-5.40) 10^6/uL Hgb 13.0 (12.0-16.0) g/dL Hct 39.2 (36.0-48.0) % MCV 86.5 (81.0-99.0) fL MCH 28.7 (26.7-34.0) pg MCHC 33.2 (29.9-35.2) g/dL RDW 13.8 (11.0-15.0) % Plt Count 242 (150-450) 10^3/uL MPV 10.3 (9.5-13.5) fL Neut % (Auto) 74.0 (43.0-75.0) % Lymph % (Auto) 18.1 L (20.5-60.0) % [place] % (Auto) 6.1 (1.7-12.0) % Eos % (Auto) 1.0 (0.9-7.0) % Baso % (Auto) 0.4 (0.2-2.0) % Neut # (Auto) 5.2 (1.4-6.5) 10^3/uL Lymph # (Auto) 1.3 (1.2-3.8) 10^3/uL [place] # (Auto) 0.4 (0.3-0.8) 10^3/uL Eos # (Auto) 0.1 (0.0-0.7) 10^3/uL Baso # (Auto) 0.0 (0.0-0.1) 10^3/uL Abs Immat Gran (auto) 0.03 (0.00-0.03) 10^3/uL Imm/Tot Granulo (auto) 0.4 (0.0-0.5) % Sodium 134 L (136-145) mmol/L Potassium 3.6 (3.5-5.1) mmol/L Chloride 99 (98-107) mmol/L Carbon Dioxide 29.3 (21.0-32.0) mmol/L Anion Gap 9.3 BUN 13.0 (7.0-18.0) mg/dL Creatinine 0.71 (0.55-1.02) mg/dL Est GFR ( Amer) >60 (>=60 mL/min/1.73m^2) Est GFR (Non-Af Amer) >60 (>=60 mL/min/1.73m^2) BUN/Creatinine Ratio 18.3 Glucose 162 H (74-106) mg/dL Calcium 8.3 L (8.5-10.1) mg/dL Serum HCG, Qual Negative (NEGATIVE) Imaging Data CT scan - head: Radiologist's impression: No acute intracranial hemorrhage Discharge Plan Discharge Chief Complaint: Dizziness Clinical Impression: Migraine Patient Disposition: Home, Self-Care Time of Disposition Decision: 18:35 Condition: Good Mode of Transportation: Private Vehicle Prescriptions / Home Meds: New vkxitgmuhk-mvetocvprnizb-agjh [Fioricet] 50-300-40 mg capsule 1 cap PO Q6H PRN (Reason: pain) 5 Days Qty: 20 0RF No Action loebksunzt-decemsezjrlso-oxqg [Fioricet] 50-300-40 mg capsule 1 cap PO Q8H PRN (Reason: pain) Qty: 20 0RF levothyroxine 137 mcg tablet 137 mcg PO .aday Mounjaro 2.5 mg/0.5 mL pen injector 15 mg SUBCUT QWEEK metformin 750 mg tablet extended release 24 hr 750 mg PO DAILY lisinopril 20 mg tablet 20 mg PO QDAY Patient Comments: Pt has not been taking. She stopped it herself. lisinopril 20 mg tablet 20 mg PO DAILY Qty: 30 0RF Print Language: Croatian Instructions: Migraine Headache (ED) Referrals: Emi Gaxiola MD [Primary Care Provider, Family Practice] - 1 week
[2025-01-06 16:03] LABS: Basophils Percent Auto 0.4 % (0.2-2.0); Eosinophils Absolute Auto 0.1 10^3/uL (0.0-0.7); Hematocrit 39.2 % (36.0-48.0); Immature Granulocytes Abs Auto 0.03 10^3/uL (0.00-0.03); Immature Granulocytes Pct Auto 0.4 % (0.0-0.5); Lymphocytes Absolute Auto 1.3 10^3/uL (1.2-3.8); Lymphocytes Percent Auto 18.1 % (20.5-60.0); Mean Corpuscular HGB Conc 33.2 g/dL (29.9-35.2); Mean Corpuscular Hemoglobin 28.7 pg (26.7-34.0); Mean Corpuscular Volume 86.5 fL (81.0-99.0); Mean Platelet Volume 10.3 fL (9.5-13.5); Monocytes Absolute Auto 0.4 10^3/uL (0.3-0.8); Monocytes Percent Auto 6.1 % (1.7-12.0); Neutrophils Absolute Auto 5.2 10^3/uL (1.4-6.5); Platelet Count 242 10^3/uL (150-450); Red Blood Count 4.53 10^6/uL (4.20-5.40); Red Cell Distribution Width 13.8 % (11.0-15.0)
[2025-01-06] MEDS: DIPHENHYDRAMINE HCL 50 MG/ML VIAL 25 MG IVP (16:12)
[2025-01-06 16:13] LABS: Anion Gap 9.3; BUN Creatinine Ratio 18.3; Calcium 8.3 mg/dL (8.5-10.1); Carbon Dioxide 29.3 mmol/L (21.0-32.0); Chloride 99 mmol/L (98-107); Estimated GFR (African America >60 (>=60 mL/min/1.73m^2); Estimated GFR (Non-African Ame >60 (>=60 mL/min/1.73m^2); Glucose 162 mg/dL (74-106); Potassium 3.6 mmol/L (3.5-5.1); Sodium 134 mmol/L (136-145)
[2025-01-06] MEDS: KETOROLAC TROMETHAMINE 30 MG/ML VIAL IVP (16:13)
[2025-01-06] MEDS: METHYLPREDNISOLONE SOD SUCC PF 125 MG/2 ML VIAL IVP (16:13)
[2025-01-06] MEDS: 0.9 % SODIUM CHLORIDE 1,000 ML 1000 ML IV (16:13)
[2025-01-06 16:19] LABS: HCG Qualitative NEGATIVE (NEGATIVE); Internal Control Within Normal Limits
[2025-01-06 16:55] VITALS: BP 172/89; PULSE 68; O2SAT 100
[2025-01-06] MEDS: MORPHINE SULFATE 4 MG/ML VIAL IV (18:03)
[2025-01-06 18:07] VITALS: BP 141/75; PULSE 74; O2SAT 100
== END 2025-01-06 18:56 | disposition home or self-care (01) ==
PROVIDERS: Emergency Provider Emergency Medicine; PCP Family Medicine
DX: G43.909 Migraine, unspecified, not intractable, without status migrainosus (principal); Z87.891 Personal history of nicotine dependence
CPT/HCPCS: 36415; 70450; 80048; 84703; 85025; 96374; 96375; 99285; J1200; J1885; J2270; J2765; J2919

== ENCOUNTER 2025-02-23 22:23 | Emergency (ER) | payer OTHER, SELFPAY ==
--- OUTSIDE RECORDS SUMMARY | 2021-03-12 08:00 | XMS_ITS | Continuity of Care Document ---
Author Organization [employer] [facility] Address [address] [place] [address] [place] [address] Phone Care Team Providers Care Broke Man Name Role Phone Danny Chávez Unavailable Unavailable Procedures Procedure Date PSYCH DIAGNOSTIC EVALUATION PSYCL/NRPSYC TST PHY/QHP 1ST PSYCL/NRPSYC TST PHY/QHP EA OFFICE CONSULTATION Advance Directives Directive Yes / No Effective Date File Name No Information Encounters Encounter Description Practice Location Reason(s) For Visit Diagnoses Date Provider Providers Copied on Encounter PSYCH DIAGNOSTIC EVALUATION [place] [employer] [facility], [address] [facility] [place], [id number], [place] tel:[phone] [facility] Weight Loss Surgery No Information Saira Delgado. [address], [id number], [place]. tel:[phone] Referring Provider: Danny Chávez, [address] [place] [address], [address]. tel:[phone] OFFICE CONSULTATION [place] [employer] [facility], [address] [facility] [place], [id number], [place] tel:[phone] [facility] Weight Loss Surgery No Information Erik Medina. [address] [facility] [address], [place], [id number], [place]. tel:[phone] Referring Provider: Adam Alba, [address], [address]. tel:[phone] Family History Family Member Type Diagnosis Age At Onset No Information Payers Payer name Insurance type Covered alliance party ID Luther whitaker(sAngella Gunderson [id number] Social History Type Description Quantity Date Captured [...]
--- OUTSIDE RECORDS SUMMARY | 2025-02-19 11:50 | XMS_ITS | Encounter Summary ---
Author Organization [facility] Address [address] [place] [address] Care Team Providers Care Hand Sample Maker Name Role Phone Samanta Cota NP Unavailable [phone] Emi Gaxiola MD Primary Care Provider Reason for Visit * Reason Comments Foot/ankle Post-op WK 6 post op Encounter Details Date Type Department Care Team ([facility] Contact Info) Description 02/19/2025 11:50 AM EDT Office Visit [facility] [address] [place] [address] Earnest Carpio, DPM FACFAS [address] [place] [address] Hallux valgus of left foot (Primary Dx); Left foot pain Social History Tobacco Use Types Packs/Day Years Used Date Smoking Tobacco: Never Smokeless Tobacco: Never Tobacco Cessation:Counseling Given: Yes Alcohol Use Standard Drinks/Week Comments Defer 0 (1 standard drink = 0.6 oz pur e alcohol) Comments Unknown Sex and Gender Information Value Date Recorded Sex Assigned at Not on file Legal Sex Female 8:33 PM EDT Gender Identity Not on file Sexual Orientation Not on file documented as of this encounter Last Filed Vital Signs Vital Sign Reading Time Taken Comments Blood Pressure 129/77 02/19/2025 12:12 PM EDT Pulse 72 02/19/2025 12:12 PM EDT Temperature - - Respiratory Rate - - Oxygen Saturation - - Inhaled Oxygen Concentration - - Weight 86.6 kg (191 lb) 02/19/2025 12:12 PM EDT Height 162.6 cm (5' 4 ) 02/19/2025 12:12 PM EDT Body Mass Index 32.79 02/19/2025 12:12 PM EDT documented in this encounter Progress Notes * Earnest Carpio DPM FACFAS - 02/19/2025 11:50 AM EDT Images from the original note were not included. Patient: Anabella Culver : 1980 PCP: Emi Gaxiola MD SUBJECTIVE This is a 44 y.o. female that presents today The patient is here status post Trell bunionectomy left foot endoscopic plantar fasciotomy left foot procedure. Postop week 6. They deny fevers, chills, nausea, vomiting, calf pain and shortness of breath. Pain level is being managed with ice elevation and pain medication. They have been relatively compliant with her postoperative care. 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 Vibratory sensation was intact B/L Musculoskeletal: Muscle strength was +5 over 5 all intrinsic and extrinsic muscles tested. NegativeHomans test noted Surgical site evaluation: The incision site is healing well without signs infection. Minimal swelling noted. Consistent with the patient's level of surgery consistent with time frame postoperatively.Excellent range of motion of the great toe joint is in good position and alignment. No pain with direct palpation of the medial band of the plantar fascia much improved Three views were taken today AP/MO/LAT foot: No fractures or dislocations seen excellent position alignment of the great toe joint fixation intact trabeculation noted across the osteotomy site ASSESSMENT 1. Hallux valgus of left foot 2. Left foot pain PLAN Patient is doing very well educated on xigkx-ok-xdaqdz exercises due with a surgical boot for 2 more weeks she is progressing well I did dispensed Tubigrip to her today she is to elevate and ice follow up with me in 2 weeks for reassessment. Earnest Carpio DPM FACLEXIS documented in this encounter Plan of Treatment Not on file documented as of this encounter Procedures Procedure Name Priority Date/Time Associated Diagnosis Comments XR FOOT 3+ VIEWS LEFT Routine 02/19/2025 12:00 PM EDT Left foot pain Hallux valgus of left foot documented in this encounter Results * XR foot 3+ views left (02/19/2025 12:00 PM EDT) Anatomical Region Laterality Modality Lower Extremities, Foot Left Radiogra phic Imaging Narrative 02/19/2025 9:54 PM EDT Imaging Result: Three views were taken today AP/MO/LAT foot: No fractures or dislocations seen excellent position alignment of the great toe joint fixation intact trabeculation noted across the osteotomy site Earnest Carpio DPM FACFAS IMG XR PROCEDURES Final Result documented in this encounter Visit Diagnoses Diagnosis Hallux valgus of left foot- Primary Left foot pain Pain in soft tissues of limb documented in this encounter Care Teams Hand Sample Maker Relationship Specialty Start Date End Date Emi Gaxiola MD [address] [place] [phone] PCP - General Family Medicine 09/10/24 Samanta Cota NP [address] [place] [address] Nurse Practitioner Family Medicine 03/28/24 documented as of this encounter
--- OUTSIDE RECORDS SUMMARY | 2025-02-19 12:05 | XMS_ITS | Encounter Summary ---
Author Organization [facility] Address [address] [place] [address] Care Team Providers Care Reclamation Furnace Operator Name Role Phone Samanta Cota NP Unavailable [phone] Emi Gaxiola MD Primary Care Provider [phone] Encounter Details Date Type Department Care Team ([facility] Contact Info) Description 02/19/2025 12:05 PM EDT Ancillary Procedure [facility] [address] [place] [address] Social History Tobacco Use Types Packs/Day Years Used Date Smoking Tobacco: Never Smokeless Tobacco: Never Alcohol Use Standard Drinks/Week Comments Defer 0 (1 standard drink = 0.6 oz pur e alcohol) Comments Unknown Sex and Gender Information Value Date Recorded Sex Assigned at Not on file Legal Sex Female 8:33 PM EDT Gender Identity Not on file Sexual Orientation Not on file documented as of this encounter Plan of Treatment Not on [...] intact trabeculation noted across the osteotomy site us Earnest Caprio DPM FACFAS IMG XR PROCEDURES Final Result documented in this encounter Visit Diagnoses Not on filedocumented in this encounter Care Teams Reclamation Furnace Operator Relationship Specialty Start Date End Date Emi Gaxiola MD [address] [place] [id number] PCP - General Family Medicine 09/10/24 Samanta Cota NP [address] [place] [address] Nurse Practitioner Family Medicine 03/28/24 documented as of this encounter
[2025-02-23 22:29] VITALS: BP 146/86; PULSE 76; TEMP 37; O2SAT 97; BMI 30.9
--- OUTSIDE RECORDS SUMMARY | 2025-02-23 22:29 | XMS_ITS | Encounter Summary ---
Author Organization [facility] Address [facility] [place] [address] Care Team Providers Care Photographic Laboratory Supervisor Name Role Phone Toby Badillo Primary Care Provider [phone] Source Comments In the event this information is protected by the Federal Confidentiality of Alcohol and Drug AbusePatient Records regulations: The Federal rules restrict any use of the information to criminally investigate or prosecute any alcohol or drug abuse patient.[facility] Encounter Details Date Type Department Care Team (Late st Contact Info) Description 10/02/2020 Patient Msg Pre Anesthesia [address] [place] [address] Gricel Fairchild PA-C [address] [place] [address] Preoperative Instructions Social History Tobacco Use Types Packs/Day Years Used Date Smoking Tobacco: Never Smokeless Tobacco: Never Alcohol Use Standard Drinks/Week Comments Yes 0 (1 standard drink = 0.6 oz pur e alcohol) maybe a few drinks a week PHQ-2 Answer Date Recorded PHQ-2 score 0 09/09/2020 Area Deprivation Index Answer Date Adebayo rded National Score (1-100), lower number is lower ri sk Not on file 08/06/2020 State Score (1-10), lower number is lower risk N ot on file 08/06/2020 Data from: https://www.neighborhoodatlas.medicine.[facility].edu/. Last address used for calculation Not on file 08/06/2020 Comments No Sex and Gender Information Value Date Recorded Sex Assigned at Not on file Legal Sex Female 10:16 AM EST Gender Identity Not on file Sexual Orientation Not on file COVID-19 Exposure Response Date Recorded In the last month, have you been in contact with someone who was confirmed or suspected to have Coronavirus / COVID-19? No / Unsure 10/03/2020 6:35 AM EST documented as of this encounter Plan of Treatment Not on file documented as of this encounter Visit Diagnoses Not on filedocumented in this encounter Care Teams Photographic Laboratory Supervisor Relationship Specialty Start Date End Date Toby Badillo DO PCP - General Family Medicine 03/29/12 documented as of this encounter
--- OUTSIDE RECORDS SUMMARY | 2025-02-23 22:29 | XMS_ITS | Encounter Summary ---
Author Organization [facility] Address [address] [place] [address] Care Team Providers Care Biology Department Chair Name Role Phone Samanta Cota NP Unavailable [phone] Emi Gaxiola MD Primary Care Provider Encounter Details Date Type Department Care Team (Late st Contact Info) Description 01/09/2025 Telephone [facility] [address] [address] [place] [address] Earnest Carpio, DPM FACFAS [address] [place] [address] Social History Tobacco Use Types Packs/Day Years [...] documented as of this encounter Visit Diagnoses Diagnosis Hallux valgus of left foot- Primary Plantar fasciitis Plantar fascial fibromatosis documented in this encounter Care Teams Biology Department Chair Relationship Specialty Start Date End Date Emi Gaxiola MD [address] [place] [address] PCP - General Family Medicine 09/10/24 Samanta Cota NP [address] [place] [address] Nurse Practitioner Family Medicine 03/28/24 documented as of this encounter
--- OUTSIDE RECORDS SUMMARY | 2025-02-23 22:29 | XMS_ITS | Encounter Summary ---
Author Organization [facility] Address [address] [place] [address] Care Team Providers Care Manager Security And Safety Name Role Phone JustinoNadirTobyshasha Cross DO Primary Care Provider [phone] Source Comments In the event this information is protected by the Federal Confidentiality of Alcohol and Drug AbusePatient Records regulations: The Federal rules restrict any use of the information to criminally investigate or prosecute any alcohol or drug abuse patient.[facility] Encounter Details Date Type Department Care Team (Late st Contact Info) Description 09/29/2020 Patient Msg Pre Anesthesia [address] [facility] [address] [place] [address] Provider, [facility] Pre Anesthesia Consultation Social History Tobacco Use Types Packs/Day Years Used Date Smoking Tobacco: Never Smokeless Tobacco: Never PHQ-2 Answer Date Recorded PHQ-2 score 0 09/09/2020 Area Deprivation Index Answer Date Adebayo rded National Score (1-100), lower number is lower ri sk Not on file 08/06/2020 State Score (1-10), lower number is lower risk N ot on file 08/06/2020 Data from: https://www.neighborhoodatlas.medicine.[facility].edu/. Last address used for calculation Not [...] have Coronavirus / COVID-19? No / Unsure 10/01/2020 3:17 PM EST documented as of this encounter Plan of Treatment Not on file documented as of this encounter Visit Diagnoses Not on filedocumented in this encounter Care Teams Manager Security And Safety Relationship Specialty Start Date End Date Toby Badillo DO PCP - General Family Medicine 03/29/12 documented as of this encounter
--- OUTSIDE RECORDS SUMMARY | 2025-02-23 22:30 | XMS_ITS | Encounter Summary ---
Author Organization [facility] Address [address] [place] [address] Care Team Providers Care Senior Warehouse Clerk Name Role Phone Earnest Jackson MD Primary Care Provider Samanta Cota RECEPTION CENTRE MANAGER Unavailable [phone] Emi Gaxiola MD Primary Care Provider [phone] Encounter Details Date Type Department Care Team (Late st Contact Info) Description 02/15/2023 Abstract [facility] [address] [place] [address] Matt Cool DO [address] [place] [address] Social History Tobacco Use Types Packs/Day Years Used Date Smoking Tobacco: Never Assessed Comments Unknown Sex and Gender Information Value Date Recorded Sex Assigned at Not on file Legal Sex Female 8:33 PM EDT Gender Identity Not on file Sexual Orientation Not on file documented as of this encounter Plan of Treatment Not on file documented as of this encounter Visit Diagnoses Not on filedocumented in this encounter Care Teams Senior Warehouse Clerk Relationship Specialty Start Date End Date Earnest Jackson MD PCP - General Family Medicine 03/04/23 09/09/24 Emi Gaxiola MD [address] [place] [address] PCP - General Family Medicine 09/10/24 Samanta Cota NP [address] [place] [address] Nurse Practitioner Family Medicine 03/28/24 documented as of this encounter
--- OUTSIDE RECORDS SUMMARY | 2025-02-23 22:30 | XMS_ITS | Encounter Summary ---
Author Organization [facility] Address [address] [place] [address] Care Team Providers Care Supply Chain Analyst Name Role Phone Earnest Jackson MD Primary Care Provider [phone] Samanta Cota NP Unavailable [phone] Emi Gaxiola MD Primary Care Provider [phone] Reason for Visit * Reason Comments Med Refill Encounter Details Date Type Department Care Team (Late st Contact Info) Description 09/12/2023 Refill [facility] [address] [place] [address] Samanta Cota, GLORIA [address] [place] [address] Constipation, unspecified; Constipation Social History Tobacco Use Types Packs/Day Years Used Date Smoking Tobacco: Never Assessed Comments Unknown Sex and Gender Information Value Date Recorded Sex Assigned at Not on file Legal Sex Female 8:33 PM EDT Gender Identity Not on file Sexual Orientation Not on file documented as of this encounter Miscellaneous Notes * Telephone Encounter - Samanta Ctoa NP - 09/12/2023 4:09 PM EST Pt no longer patient at this practice documented in this encounter Plan of Treatment Not on file documented as of this encounter Visit Diagnoses Diagnosis Constipation, unspecified Constipation Unspecified constipation documented in this encounter Care Teams Supply Chain Analyst Relationship Specialty Start Date End Date Earnest Jackson MD PCP - General Family Medicine 03/04/23 09/09/24 Emi Gaxiola MD [address] [place] [address] PCP - General Family Medicine 09/10/24 Samanta Cota NP [address] [place] [address] Nurse Practitioner Family Medicine 03/28/24 documented as of this encounter
--- OUTSIDE RECORDS SUMMARY | 2025-02-23 22:30 | XMS_ITS | Encounter Summary ---
Author Organization [facility] Address [address] [place] [address] Care Team Providers Care Boot Trimmer Name Role Phone Earnest Jackson MD Primary Care Provider [phone] Samanta Cota NP Unavailable [phone] Emi Gaxiola MD Primary Care Provider [phone] Reason for Visit * Reason Comments Med Refill Encounter Details Date Type Department Care Team (Late st Contact Info) Description 11/19/2023 Refill [facility] [address] [place] [address] Samanta Cota, GLORIA [address] [place] [address] Social History Tobacco Use Types Packs/Day Years Used Date Smoking Tobacco: Never Assessed Comments Unknown Sex and Gender Information Value Date Recorded Sex Assigned at Not on file Legal Sex Female 8:33 PM EDT Gender Identity Not on file Sexual Orientation Not on file documented as of this encounter Miscellaneous Notes * Telephone Encounter - Samanta Cota NP - 11/21/2023 10:32 AM EDT No longer my patient documented in this encounter Plan of Treatment Not on file documented as of this encounter Visit Diagnoses Not on filedocumented in this encounter Care Teams Boot Trimmer Relationship Specialty Start Date End Date Earnest Jackson MD PCP - General Family Medicine 03/04/23 09/09/24 Emi Gaxiola MD [address] [place] [address] PCP - General Family Medicine 09/10/24 Samanta Cota NP [address] [place] [address] Nurse Practitioner Family Medicine 03/28/24 documented as of this encounter
--- OUTSIDE RECORDS SUMMARY | 2025-02-23 22:30 | XMS_ITS | Encounter Summary ---
Author Organization [facility] Address [address] [place] [address] Care Team Providers Care Marble Mechanic Helper Name Role Phone Earnest Jackson MD Primary Care Provider [phone] Samanta Cota COLLARETTE SEPARATOR Unavailable [phone] Emi Gaxiola MD Primary Care Provider [phone] Encounter Details Date Type Department Care Team (Late st Contact Info) Description 03/14/2023 Abstract [facility] [address] [place] [address] Mayte Garrett PA [address] [place] [address] Social History Tobacco Use Types Packs/Day [...] on filedocumented in this encounter Care Teams Marble Mechanic Helper Relationship Specialty Start Date End Date Earnest Jackson MD PCP - General Family Medicine 03/04/23 09/09/24 Emi Gaxiola MD [address] [facility] [place] [address] PCP - General Family Medicine 09/10/24 Samanta Cota NP [address] [place] [address] Nurse Practitioner Family Medicine 03/28/24 documented as of this encounter
--- OUTSIDE RECORDS SUMMARY | 2025-02-23 22:30 | XMS_ITS | Encounter Summary ---
Author Organization [facility] Address [address] [place] [address] Care Team Providers Care Kettle Skimmer Name Role Phone Samanta Cota OCCUPATIONAL MEDICINE SPECIALIST Unavailable [phone] Emi Gaxiola MD Primary Care Provider Encounter Details Date Type Department Care Team (Late st Contact Info) Description 02/19/2025 Bamboo flowsheet [facility] [address] [place] [address] Earnest Carpio, DPM FACFAS [address] [place] [address] Social History Tobacco Use Types Packs/Day Years [...] on filedocumented in this encounter Care Teams Kettle Skimmer Relationship Specialty Start Date End Date Emi Gaxiola MD [address] [facility] [place] [address] PCP - General Family Medicine 09/10/24 Samanta Cota NP [address] [place] [address] Nurse Practitioner Family Medicine 03/28/24 documented as of this encounter
--- OUTSIDE RECORDS SUMMARY | 2025-02-23 22:30 | XMS_ITS | Clinical Summary ---
Author Organization [facility] Address [address] [place] [address] Care Team Providers Care Business Applications Developer Name Role Phone Samanta Cota SKIP HOIST OPERATOR Unavailable [phone] Emi Gaxiola MD Primary Care Provider [phone] Allergies Active Allergy Reactions Criticality Noted Date Comments Oxycodone-Acetaminophen Rash Low 09/09/2020 Has tolerated norco in the past Medications amitriptyline (Elavil) 50 MG tablet Take 50 mg by mouth at bedtime. 02/02/2023 Active levothyroxine (Synthroid, Levoxyl) 137 MCG tablet Take 137 mcg by mouth in the morning. 02/02/2023 Active lisinopril 20 MG tablet Take 20 mg by mouth in the morning. 01/20/2023 Active metFORMIN (Glucophage) 500 MG tablet Take 500 mg by mouth in the morning and 500 mg in the evening. Take with meals. Active Tirzepatide (Mounjaro) 2.5 MG/0.5ML solution pen-injector Inject under the skin. Active levothyroxine (Synthroid, Levoxyl) 125 MCG tablet TAKE 1 TABLET DAILY, FIRST THING IN THE MORNING 2 HOURS PRIOR TO ANY OTHER FOOD/DRINK/M EDS 06/05/2024 Active cephalexin (Keflex) 500 MG capsuleIndicati ons:Skin and Skin Structure Infection Take 1 capsule (500 mg) by mouth in the morning and 1 capsule (500 mg) in the evening and 1 capsule (500 mg) before bedtime. Do all this for 10 days. TAKE 1 PILL P.O. T.I.D. FOR 10 DAYS. 30 capsule 01/15/2025 01/26/20 25 Active Problems Problem Noted Date Diagnosed Date Engages in rastafarian activities 10/02/2020 Overview (03/11/2023): Last Assessment & Plan: Assessment: has received blood products in the past; will discuss if blood transfusion would be needed as she has four young children she would like to be able to continue to care for. States her mother would refuse blood transfusion for her, however, patient states she is open to discussing transfusion if needed. 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 No echo on file for review at this time Hypothyroidism 10/02/2020 Overview (03/11/2023): Last Assessment & Plan: Assessment: States is well controlled with medication Follows with PCP Systolic murmur 10/02/2020 History of section 09/19/2020 (spontaneous vaginal delivery) ([facility]) Iron deficiency anemia due to chronic blood loss 09/09/2020 Overview (03/11/2023): Last Assessment & Plan: Assessment: planned upcoming procedure Is receiving iron infusions Following with hematology Encounters Date Type Department Care Team Description 02/19/2025 12:05 PM EDT Ancillary Procedure [facility] [address] [place] [address] 02/19/2025 11:50 AM EDT Office Visit [facility] [address] [place] [address] Earnest Carpio, DPM FACFAS Hallux valgus of left foot (Primary Dx); Left foot pain 02/19/2025 Bamboo flowsheet [facility] [address] [place] [address] Earnest Carpio, DPM FACFAS 02/05/2025 11:55 AM EDT Ancillary Procedure [facility] [address] [facility] [place] [address] 02/05/2025 11:40 AM EDT Office Visit [facility] [address] [facility] [place] [address] Earnest Carpio, DPM FACFAS Hallux valgus of left foot (Primary Dx); Left foot pain 02/05/2025 Bamboo flowsheet [facility] [address] [place] [address] Earnest Carpio, DPM FACFAS 01/23/2025 3:30 PM EDT Office Visit [facility] [address] [facility] [place] [address] Earnest Carpio, DPM FACFAS Hallux valgus of left foot (Primary Dx); Plantar fasciitis 01/23/2025 Bamboo flowsheet [facility] [address] [place] [address] Earnest Carpio, DPM FACFAS 01/15/2025 10:55 AM EDT Ancillary Procedure [facility] [address] [place] [address] 01/15/2025 10:30 AM EDT Office Visit [facility] [address] [place] [address] Earnest Carpio, DPM FACFAS Hallux valgus of left foot (Primary Dx); Left foot pain; Plantar fasciitis 01/15/2025 Bamboo flowsheet [facility] [address] [place] [address] Earnest Carpio, DPM FACFAS 01/10/2025 Abstract [facility] [address] [facility] [place] [address] Earnest Carpio, DPM FACFAS 01/09/2025 Telephone [facility] [address] [place] [address] Earnest Carpio, DPM FACFAS 01/04/2025 Telephone [facility] [address] [facility] [place] [address] Earnest Carpio, DPM FACFAS 01/02/2025 11:40 AM EDT Office Visit [facility] [address] [facility] [place] [address] Earnest Carpio, DPM FACFAS Hallux valgus of left foot (Primary Dx); Plantar fasciitis 01/02/2025 Clinisync Result Encounter [facility] External Department Unsolicited Earnest Carpio, DPM FACFAS 01/02/2025 Clinisync Result Encounter [facility] External Department Unsolicited Earnest Carpio, DPM FACFAS 01/02/2025 Bamboo flowsheet [facility] [address] [place] [address] Earnest Carpio, DPM FACFAS 12/24/2024 Clinisync Result Encounter [facility] External Department Unsolicited Earnest Carpio, DPM FACFAS 12/05/2024 Orders Only [facility] [address] [facility] [place] [address] Lennie Encarnacion Preop examination 12/04/2024 9:50 AM EDT Clinical Support [facility] [address] [facility] [place] [address] Earnest Carpio, DPM FACFAS Hallux valgus of left foot (Primary Dx); Plantar fasciitis; Gastrocnemius equinus of left lower extremity 12/04/2024 Telephone [facility] [address] [place] [address] Earnest Carpio, DPM FACFAS 12/04/2024 Bamboo flowsheet [facility] [address] [place] [address] Earnest Carpio, DPM FACFAS from Last 3 Months Family History Relation Name Status Comments Daughter 1 Alive Daughter 2 Alive Daughter 3 Alive Daughter 4 Alive Father Mother Alive Son 1 Alive Son 2 Alive Social History Tobacco Use Types Packs/Day Years [...] on file Sexual Orientation Not on file Last Filed Vital Signs Vital Sign Reading [...] Mass Index 32.79 02/19/2025 12:12 PM EDT Plan of Treatment Not on file Procedures Procedure Name Priority Date/Time Associated Diagnosis Comments XR FOOT 3+ VIEWS LEFT Routine 02/19/2025 12:00 PM EDT Left foot pain Hallux valgus of left foot XR FOOT 3+ VIEWS LEFT Routine 02/05/2025 11:51 AM EDT Left foot pain Hallux valgus of left foot XR FOOT 3+ VIEWS LEFT Routine 01/15/2025 10:52 AM EDT Left foot pain XR FOOT LT MIN 3V 01/02/2025 3:3 6 PM EDT ALL BASIC METABOLIC PANEL Routine 01/02/2025 3:05 PM EDT ALL CBC WITH AUTO DIFF Routine 01/02/2025 3:05 PM EDT ECG 12-LEAD 12/24/2024 1:23 PM EDT from Last 3 Months Results * XR foot 3+ views left (02/19/2025 12:00 PM EDT) Only the most recent of3 resultswithin the time period is included. Anatomical Region Laterality Modality Lower Extremities, Foot Left Radiogra phic Imaging Narrative 02/19/2025 9:54 PM EDT Imaging Result: Three views were taken today AP/MO/LAT foot: No fractures or dislocations seen excellent position alignment of the great toe joint fixation intact trabeculation noted across the osteotomy site Earnest Carpio DPM FAC[facility] IMG XR PROCEDURES Final Result * XR FOOT LT MIN 3V (01/02/2025 3:36 PM EDT) Anatomical Region Laterality Modality Other 01/02/2025 3:36 PM EDT Narrative 01/02/2025 3:38 [place] [address] XRay Report Signed Patient: APRYL DOWNS MR#: [id number] : 1980 Acct:[id number] Age/Sex: 44 / F ADM Date: 01/02/25 Loc: LAB Attending Dr: EARNEST CARPIO M.D. Ordering Physician: EARNEST CARPIO M.D. Date of Service: 01/02/25 Procedure(s): XR foot LT min 3V Accession Number(s): [id number] cc: Emi Gaxiola M.D.; EARNEST CARPIO M.D. The [address] [address] Patient Name: APRYL DOWNS MRN: TBH:[id number] date: 1980 Sex: F Assigned Patient Location: LAB Current Patient Location: LAB Accession/Order Number: [id number] Exam Date: 01/02/2025 15:35 Report Date: 01/02/2025 15:36 At the request of: EARNEST CARPIO MD Procedure: XR foot LT min 3V [...] Jr., D.O. 01/02/2025 3:36 PM Dictation Location: [place] [address] Electronically authenticated by: [id number] Date: 01/02/2025 15:36 Dictated By: Alan Rowan M.D. Signed By: 01/02/25 1538 DD/ 1536 TD/TT: Plant Sciences Professor: Procedure Note Radiology, Radiologist, - 01/02/2025 [place] [address] XRay Report Signed Patient: ANUM DOWNS#: [id number] : 1980Acct:[id number] Age/Sex: 44 / FADM Date: 01/02/25 Loc: LAB Attending Dr: EARNEST CARPIO M.D. Ordering Physician: EARNEST CARPIO M.D. Date of Service: 01/02/25 Procedure(s): XR foot LT min 3V Accession Number(s): [id number] cc: Emi Gaxiola M.D.; EARNEST CARPIO M.D. The [address] [id number] Patient Name: APRYL DOWNS MRN: [id number] date: 1980 Sex: F Assigned Patient Location: LAB Current Patient Location: LAB Accession/Order Number: [id number] Exam Date: 01/02/2025 15:35 Report Date: 01/02/2025 15:36 At the request of: EARNEST CARPIO MD Procedure: XR foot LT min 3V [...] Jr., D.O. 01/02/2025 3:36 PM Dictation Location: [place] [address] Electronically authenticated by: [id number] Y Date: :36 Dictated By: Alan Rowan M.D. Signed By:01/02/25 1538 DD/ 1536 TD/TT: Plant Sciences Professor: Earnest Carpio DPStu FACFAS [facility] IMAGING Final Result * ALL CBC WITH AUTO DIFF (01/02/2025 3:05 PM EDT) TBH WBC 7.0 4.0 - 11.0 10 3/uL TBH TBH RBC 4.39 4.20 - 5.40 10 6/uL TBH TBH HGB 12.6 12.0 - 16.0 g/dL TBH TBH HCT 37.9 36.0 - 48.0 % TBH TBH MCV 86.3 81.0 - 99.0 fL TBH TBH MCH 28.7 26.7 - 34.0 pg TBH TBH MCHC 33.2 29.9 - 35.2 g/dL TBH TBH RDW 13.9 11.0 - 15.0 % TBH TBH PLT 263 150 - 450 10 3/uL TBH TBH MPV 10.1 9.5 - 13.5 fL TBH NEUTROPHILS PERCENT AUTO 64.9 43.0 - 75.0 % TBH LYMPHOCYTES PERCENT AUTO 23.4 20.5 - 60.0 % TBH MONOCYTES PERCENT AUTO 9.2 1.7 - 12.0 % TBH TBH EO % 1.6 0.9 - 7.0 % TBH BASOPHILS PERCENT AUTO 0.6 0.2 - 2.0 % TBH IMMATURE GRANULOCYTES PCT AUTO 0.3 0.0 - 0.5 % TBH NEUTROPHILS ABSOLUTE AUTO 4.6 1.4 - 6.5 10 3/uL TBH LYMPHOCYTES ABSOLUTE AUTO 1.7 1.2 - 3.8 10 3/uL TBH MONOCYTES ABSOLUTE AUTO 0.7 0.3 - 0.8 10 3/uL TBH TBH EO # 0.1 0.0 - 0.7 10 3/uL TBH BASOPHILS ABSOLUTE AUTO 0.0 0.0 - 0.1 10 3/uL TBH IMMATURE GRANULOCYTES ABS AUTO 0.02 0.00 - 0.03 10 3/uL TBH 01/02/2025 3:05 PM EDT 01/02/2025 3:06 PM EDT Narrative CLINISYNC - 01/02/2025 3:26 PM EDT Earnest Carpio DPM [facility] CLIN[facility] Final Re sult Performing Organization Address [facility]/ZIP Co de Phone Number CLINISYNC TB * (ABNORMAL) ALL BASIC METABOLIC PANEL (01/02/2025 3:05 PM EDT) SODIUM 133(L) 136 - 145 mmol/L TBH POTASSIUM 4.1 3.5 - 5.1 mmol/L TBH CHLORIDE 97(L) 98 - 107 mmol/L TBH CARBON DIOXIDE 32.2(H) 21.0 - 32.0 mmol/L TBH ANION GAP 7.9 TBH GLUCOSE 132(H) 74 - 106 mg/dL TBH BLOOD UREA NITROGEN 16.0 7.0 - 18.0 mg/dL TBH CREATININE 0.83 0.55 - 1.02 mg/dL TBH TBH EGFR-AF DOMINICAN >60 >=60 mL/min/1.7 3m 2 TBH TBH EGFR-NON AF DOMINICAN >60 >=60 mL/min/1.7 3m 2 TBH BUN CREATININE RATIO 19.3 TBH CALCIUM 8.7 8.5 - 10.1 mg/dL TBH 01/02/2025 3:05 PM EDT 01/02/2025 3:06 PM EDT Narrative CLINISYNC - 01/02/2025 3:40 PM EDT Earnest Carpio DPStu [facility] Final Re sult Performing Organization Address [facility]/ZIP Co de Phone Number CLINISYRI TBH * ECG 12-LEAD (12/24/2024 1:23 PM EDT) Anatomical Region Laterality Modality Other 12/24/2024 1:23 PM EDT Narrative 12/24/2024 4:12 PM EDT The [address] [address] Electrocardiograph Report Signed Patient: APRYL DOWNS MR#: [id number] : 1980 Acct:[id number] Age/Sex: 44 / F ADM Date: 12/24/24 Loc: CARD Attending Dr: EARNEST CARPIO M.D. Ordering Physician: EARNEST CARPIO M.D. Date of Service: 12/24/24 Procedure(s): ECG 12 lead Accession Number(s): [id number] cc: [facility] Test Date: 2024-12-24 Pat Name: APRYL DOWNS Department: Room: - Gender: Female Care Management Assistant: : 1980 Requested By: 0719 Order Number: [id number] Reading MD: CESAR PINEDA M.D. Measurements Intervals [place] Rate: 69 P: 36 MS: 121 QRS: 44 QRSD: 88 T: 47 QT: 398 QTc: 429 Interpretive Statements SINUS RHYTHM Normal ECG Compared to ECG 08/13/2021 17:51:10 ST (T wave) deviation no longer present Possible ischemia no longer present Electronically Signed On 12-24-2024 16:12:07 EDT by CESAR PINEDA M.D. Dictated By: CESAR PINEDA Signed By: 12/24/24 1612 12/24/24 1612 DD/ 1323 TD/TT: Plant Sciences Professor: Procedure Note Radiology, Radiologist, - 12/24/[address] [address] Electrocardiograph Report Signed Patient: KEAGAN DOWNSR#: [id number] : 1980Acct:[id number] Age/Sex: 44 / FADM Date: 12/24/24 Loc: CARD Attending Dr: EARNEST CARPIO M.D. Ordering Physician: EARNEST CARPIO M.D. Date of Service: 12/24/24 Procedure(s): ECG 12 lead Accession Number(s): [id number] cc: [facility] Test Date: 2024-12-24 Pat Name: APRYL DOWNS Department: Room: - Gender: Female Care Management Assistant: : 1980 Requested By: 0719 Order Number: [id number] Reading MD: CESAR PINEDA M.D. Measurements Intervals [place] Rate: 69 P: 36 MS: 121 QRS: 44 QRSD: 88 T: 47 QT: 398 QTc: 429 Interpretive Statements SINUS RHYTHM Normal ECG Compared to ECG 08/13/2021 17:51:10 ST (T wave) deviation no longer present Possible ischemia no longer present Electronically Signed On 12-24-2024 16:12:07 EDT by CESAR PINEDA M.D. Dictated By: CESAR PINEDA Signed By:12/24/24 1612 12/24/24 1612 DD/ 1323 TD/TT: Plant Sciences Professor: Earnest Carpio DPM [facility] Final Result from Last 3 Months Insurance [employer] Care Teams Business Applications Developer Relationship Specialty Start Date End Date Emi Gaxiola MD [address] [place] [address] PCP - General Family Medicine 09/10/24 Samanta Cota NP [address] [place] [address] Nurse Practitioner Family Medicine 03/28/24
--- OUTSIDE RECORDS SUMMARY | 2025-02-23 22:30 | XMS_ITS | Clinical Summary ---
Author Organization [facility] Address [address] [place] [address] Care Team Providers Care Etl Developer Name Role Phone Toby Badillo DO Primary Care Provider [phone] Allergies Active Allergy Reactions Criticality Noted Date Comments Oxycodone-Acetaminophen Rash 09/09/2020 Has tolerated norco in the past Medications albuterol HFA (PROVENTIL HFA, VENTOLIN HFA) 90 mcg/actuation inhaler TAKE 1 TO 2 PUFFS PRIOR TO EXERCISE NEEDED 0 Active aspirin, enteric coated (ASPIRIN, ENTERIC COATED) 81 mg EC tablet 1 Active levothyroxine (SYNTHROID) 150 mcg tablet Take 150 mcg by mouth once daily. 0 Active ondansetron orally disintegrating (ZOFRAN ODT) 8 mg disintegrating tablet dissolve 1 tablet ON TONGUE every 4 hours if needed 0 Active ondansetron (ZOFRAN) 8 mg tablet Take 1 tablet by mouth every 8 hours as needed for Nausea/Vomit ing. 90 tablet 1 Active metFORMIN (GLUCOPHAGE) 500 mg tablet Take 500 mg by mouth twice daily with meals. Active NaCl 0.9% solp 250 mL with iron sucrose 100 mg iron/5 mL soln Inject intravenousl y. 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 No echo on file for review at this time Patient is Sikh 10/02/2020 Assessment & Plan (10/02/2020 4:11 PM EST): Assessment: has received blood products in the past; will discuss if blood transfusion would be needed as she has four young children she would like to be able to continue to care for. States her mother would refuse blood transfusion for her, however, patient states she is open to discussing transfusion if needed. (spontaneous vaginal delivery) x 2 1 History of section x 4 and TL 1 Iron deficiency anemia due to chronic blood loss 09/09/2020 Assessment & Plan (10/02/2020 3:55 PM EST): Assessment: planned upcoming procedure Is receiving iron infusions Following with hematology Family History Medical History Relation Comments Anesthesia Problems No Family History Blood Clots No Family History Clotting Disorder No Family History Social History Tobacco Use Types Packs/Day Years [...] N ot on file 08/06/2020 Data from: https://www.neighborhoodatlas.medicine.[facility].edu/. Last address used for calculation Not on file 08/06/2020 Comments No Sex and Gender Information Value Date Recorded Sex Assigned at Not on file Legal Sex Female 10:16 AM EST Gender Identity Not on file Sexual Orientation Not on file Last Filed Vital Signs Vital Sign Reading Time Taken Comments Blood Pressure 130/70 10/03/2020 9:40 AM EST Pulse 55 10/03/2020 9:40 AM EST Temperature 36.1 C (97 F) 10/03/2020 8:15 AM EST Respiratory Rate 16 10/03/2020 9:40 AM EST Oxygen Saturation 100% 10/03/2020 9:40 AM EST Inhaled Oxygen Concentration - - Weight 91.2 kg (201 lb) 10/03/2020 7:08 AM EST Height 160 cm (5' 3 ) 10/02/2020 3:46 PM EST Body Mass Index 35.61 10/02/2020 3:46 PM EST Plan of Treatment Health Maintenance Due Date Last Done Comments Anxiety Screening 1996 Depression Screening 1996 HIV Screening 1996 Hepatitis C Screening 1996 DTaP,Tdap,Td Vaccine (1 - Tdap) 1997 Hepatitis B Vaccine (1 of 3 - 19+ 3-dose series) 1997 Cervical Cancer Screening [address] Colonography 2023 Cologuard (FIT-DNA) 2023 Colonoscopy 2023 Colorectal Cancer Screening 2023 Fecal Occult Blood 2023 Lipid Screening 2023 Sigmoidoscopy 2023 Diabetes Screening 09/19/2023 09/19/2020, 09/09/2020 Covid-19 Vaccine ( season) 2024 Influenza Vaccine (Season Ended) 2025 Procedures Procedure Name Priority Date/Time Associated Diagnosis Comments COMPREHENSIVE METABOLIC PANEL Routine 09/19/2020 10:08 AM EST Iron deficiency anemia, unspecified iron deficiency anemia type from Last 3 Months or Most Recently Relevant to Health Maintenance Results * (ABNORMAL) COMP METABOLIC PANEL (09/19/2020 10:08 AM EST) Pathologist [facility] Protein, Total 7.2 6.3 - 8.0 g/dL 09/19/2020 5:40 PM EST [facility] Albumin 4.2 3.9 - 4.9 g/dL 09/19/2020 5:40 PM [facility] Calcium 8.8 8.5 - 10.2 mg/dL 09/19/2020 5:40 PM [facility] Bilirubin, Total 0.3 0.2 - 1.3 mg/dL 09/19/2020 5:40 PM [facility] Alkaline Phosphatase 63 34 - 123 U/L 09/19/2020 5:40 PM [facility] AST 23 13 - 35 U/L 09/19/2020 5:40 PM [facility] Glucose 202(H) 74 - 99 mg/dL 09/19/2020 5:40 PM [facility] Comment: The [place] Diabetes Association (ADA) provides guidance for cutoff values for fasting glucose and random glucose. The ADA defines fasting as no caloric intake for at least 8 hours. Fasting plasma glucose results between 100 to 125 mg/dL indicate increased risk for diabetes (prediabetes). Fasting plasma glucose results greater than or equal to 126 mg/dL meet the criteria for diagnosis of diabetes. In the absence of unequivocal hyperglycemia, results should be confirmed by repeat testing. In a patient with classic symptoms of hyperglycemia or hyperglycemic crisis, random plasma glucose results greater than or equal to 200 mg/dL meet the criteria for diagnosis of diabetes. Reference: Standards of Medical Care in Diabetes 2016, [place] Diabetes Association. Diabetes Care. 2016.39(Suppl 1). BUN 11 7 - 21 mg/dL 09/19/2020 5:40 PM [facility] Creatinine 0.62 0.58 - 0.96 mg/dL 09/19/2020 5:40 PM [facility] Sodium 137 136 - 144 mmol/L 09/19/2020 5:40 PM [facility] Potassium 4.1 3.7 - 5.1 mmol/L 09/19/2020 5:40 PM [facility] Chloride 102 97 - 105 mmol/L 09/19/2020 5:40 PM [facility] CO2 24 22 - 30 mmol/L 09/19/2020 5:[address] [facility] Anion Gap 11 9 - 18 mmol/L 09/19/2020 5:40 PM [facility] ALT 15 7 - 38 U/L 09/19/2020 5:40 PM EST [facility] eGFR- >60 09/19/2020 5:40 PM EST [facility] eGFR-All Other Races >60 . 09/19/2020 5:40 PM EST [facility] Comment: eGFR (Estimated GFR) Units of measure: mL/min/1.73 meters squared eGFR is derived from the reexpressed MDRD Study equation using the following parameters: serum creatinine, age, gender and race. The creatinine assay has been calibrated to be traceable to IDMS. An eGFR <60 mL/min/1.73m2 for >3 months is consistent with chronic kidney disease. Refer to KDOQI guidelines for clinical interpretation. In patients with unstable renal function, e.g. those with acute kidney injury, the eGFR may not accurately reflect actual GFR. Blood BLOOD SPECIMEN / Unknown 09/19/2020 10:08 AM EST 09/19/2020 10:13 AM EST us Олег Kaplan MD LABORATORY Final Result [facility] [address] [place] [address] [facility] [address] [place] [address] from Last 3 Months or Most Recently Relevant to Health Maintenance Insurance [employer] Care Teams Etl Developer Relationship Specialty Start Date End Date Toby Badillo DO PCP - General Family Medicine 03/29/12
--- OUTSIDE RECORDS SUMMARY | 2025-02-23 22:30 | XMS_ITS | Encounter Summary ---
Author Organization [facility] Address [address] [place] [address] Care Team Providers Care Environmental Health And Safety Intern Name Role Phone Earnest Jackson MD Primary Care Provider Samanta Cota BUSINESS DIVISION CHAIR Unavailable [phone] Emi Gaxiola MD Primary Care Provider [phone] Reason for Visit * Reason Comments Med Refill Encounter Details Date Type Department Care Team (Late st Contact Info) Description 02/04/2024 Refill [facility] [address] [place] [address] Samanta Cota, BUSINESS DIVISION CHAIR [address] [place] [address] Social History Tobacco Use Types Packs/Day Years [...] on filedocumented in this encounter Care Teams Environmental Health And Safety Intern Relationship Specialty Start Date End Date Earnest Jackson MD PCP - General Family Medicine 03/04/23 09/09/24 Emi Gaxiola MD [address] [place] [address] PCP - General Family Medicine 09/10/24 Samanta Cota NP [address] [place] [address] Nurse Practitioner Family Medicine 03/28/24 documented as of this encounter
--- OUTSIDE RECORDS SUMMARY | 2025-02-23 22:30 | XMS_ITS | CCD ---
Author Organization [facility] Care Team Providers Care Mobile Sales Consultant Name Role Phone UNKNOWN, PROVIDER Admitting Unavailable LONDON SALEH Attending Unavailable UNKNOWN, PHYSICIAN Referring Unavailable UNKNOWN, PHYSICIAN Primary Care Unavailable KELLY SALAS CNP Primary Care Physician Beverly Childers Unavailable Unavailable AICHHOLZ, SPEECH ASSISTANT SAMANTA Primary Care Unavailable BOB ., CECI Admitting Unavailable BOB ., CECI Attending Unavailable BOB ., CECI Consulting Unavailable AICHHOLZ, SPEECH ASSISTANT SAMANTA Primary Care Unavailable HARRISON, TRACEY Admitting Unavailable TRACEY TERRY Attending Unavailable JAVIER TERRYYL Consulting Unavailable AICHHOLZ, SPEECH ASSISTANT SAMANTA Admitting Unavailable AICHHOLZ, SPEECH ASSISTANT SAMANTA Attending Unavailable AICHHOLZ, SPEECH ASSISTANT SAMANTA Primary Care Unavailable AICHHOLZ, SPEECH ASSISTANT SAMANTA Admitting Unavailable AICHHOLZ, SPEECH ASSISTANT SAMANTA Attending Unavailable AICHHOLZ, SPEECH ASSISTANT SAMANTA Primary Care Unavailable AICHHOLZ, SPEECH ASSISTANT SAMANTA Consulting Unavailable DR MANJU CHAMPAGNE Consulting Unavailable AICHHOLZ, SPEECH ASSISTANT SAMANTA Admitting Unavailable AICHHOLZ, SPEECH ASSISTANT SAMANTA Attending Unavailable AICHHOLZ, SPEECH ASSISTANT SAMANTA Primary Care Unavailable AICHHOLZ, SPEECH ASSISTANT SAMANTA Consulting Unavailable AICHHOLZ, SPEECH ASSISTANT SAMANTA Admitting Unavailable AICHHOLZ, SPEECH ASSISTANT SAMANTA Attending Unavailable AICHHOLZ, SPEECH ASSISTANT SAMANTA Primary Care Unavailable AICHHOLZ, SPEECH ASSISTANT SAMANTA Consulting Unavailable AICHHOLZ, SPEECH ASSISTANT SAMANTA Admitting Unavailable AICHHOLZ, SPEECH ASSISTANT SAMANTA Attending Unavailable AICHHOLZ, SPEECH ASSISTANT SAMANTA Primary Care Unavailable AICHHOLZ, SPEECH ASSISTANT SAMANTA Consulting Unavailable AICHHOLZ, SAMANTA J Primary Care Physician [phone] Amanda Villafana Unavailable Beata WASTEWATER TECHNICIAN, Samanta Unavailable Amanda Villafana MD Primary Care Provider [phone] Amanda Villafana MD Primary Care Provider Amanda Villafana MD Primary Care Provider [phone] AMANDA VILLAFANA Primary Care Physician DO Pedro Syed Attending Unavailable DOLCE, EARNEST D Attending Unavailable DOLCE, EARNEST D Attending Unavailable DOLCE, EARNEST D Attending Unavailable DOLCE, EARNEST D Attending Unavailable DOLCE, EARNEST D Attending Unavailable DOLCE, EARNEST D Referring Unavailable DOLCE, EARNEST D Attending Unavailable DOLCE, EARNEST D Attending Unavailable DOLCE, EARNEST D Attending Unavailable DOLCE, EARNEST D Referring Unavailable DOLCE, EARNEST D Attending Unavailable DOLCE, EARNEST D Referring Unavailable Allergies Allergy Classification Reported Allergen(s) Allergy Type Date of Onset Reaction(s) Facility (2 sources) Acetaminophen / oxyCODONE Drug Allergy 9 [facility] Repository (15 sources) Acetaminophen / oxyCODONE; Translations: [acetaminophen-ox ycodone] Drug Allergy Eruption of skin (disorder), [facility] (1 source) Acetaminophen Drug Allergy 1 [facility] Repository (3 sources) Acetaminophen Drug Allergy 4 [facility] (3 sources) oxyCODONE Drug Allergy 4 [facility] (20 sources) Acetaminophen / oxyCODONE Drug Allergy 1 Rash [facility] Medications Current Medications Medication Drug Class(es) Dates Sig (Normalized) Sig (Original) 0.5 ML tirzepatide 15 MG/ML Auto-Injector [Mounjaro] (5 sources) Start: 08-15-2023 Mounjaro 7.5 mg/0.5 mL subcutaneous solution Subcutaneous, 0 Refill(s), Refills(s) 0 Start Date: 08/15/23 Status: Ordered Repeat number: 1 Mounjaro 7.5 MG/ 0.5ML as directed Subcutaneous weekly for 90 days Active 0.5 ML tirzepatide 20 MG/ML Auto-Injector [Mounjaro] (3 sources) Mounjaro 10 MG/0 .5ML as directed Subcutaneous weekly for 90 days Active acetaminophen 325 mg / butalbital 50 mg / caffeine 40 mg oral tablet (4 sources) Barbiturate, Central Nervous System Stimulant, Methylxanthine Start: 021 take 1 tablet by mouth every four hours for headache APAP/butalbital/caff eine 325 mg-50 mg-40 mg Tab 1 tab(s), Oral, q4hr for headache, 15 tab(s), Refill(s) 0, [facility]/pharmacy #[id number], 60, cm, 04/04/21 17:48:00 EDT, Height/Length Dosing, 94.9, kg, 04/04/21 17:48:00 EDT, Weight Dosing Start Date: 04/04/21 Status: Ordered [id number] 200 actuat albuterol 0.09 mg/actuat metered dose inhaler (4 sources) beta2-Adrenergic Agonist Start: End: take 1 puff(s) by inhalation every four to six hours as needed for wheezing Albuterol Sulfate 90 mcg/actuation HFA aerosol inhaler Active 2 PUFF INHALATION EVERY 4-6 HOURS as needed for shortness of breath or wheezing 8.5 July 10, 2024 10:46am amitriptyline hydrochloride 50 mg oral tablet (20 sources) Tricyclic Antidepressant Start: take 1 tablet by mouth at bedtime amitriptyline (Elavil) 50 MG tablet Take 50 mg by mouth at bedtime. 02/02/2023 Active Start: 02-06-2021 take 1 tablet by chiqui th once daily at bedtime Elavil 25 mg Tab 25 mg = 1 tab(s), Oral, Once a day (at bedtime), # 30 tab(s), Refills(s) 0, Pharmacy: [facility]/pharmacy #[id number], 60, cm, 02/04/21 9:34:00 [...] Daily, # 90 tab(s), Refills(s) 0, [id number] 60, cm, 02/04/21 9:34:00 EDT, Height/Length Dosing, 99.3, kg, 02/04/21 6:14:00 EDT, Weight Dosing Start Date: 02/06/21 Status: Ordered Start: 02-06-2021 take 1 tablet by chiqui th once daily aspirin 81 mg Oral EC Tab 81 mg = 1 tab(s), Oral, Daily, # 90 tab(s), Refills(s) 0, [id number], 60, cm, 02/04/21 9:34:00 EDT, Height/Length Dosing, 99.3, kg, 02/04/21 6:14:00 EDT, Weight Dosing Start Date: 02/06/21 Status: Ordered atorvastatin 40 mg oral tablet (4 sources) HMG-CoA Reductase Inhibitor Start: 02-06-2021 take 1 tablet by mouth once daily Lipitor 40 mg Tab 40 mg = 1 tab(s), Oral, Daily, # 90 tab(s), Refills(s) 0, [id number], 60, cm, 02/04/21 9:34:00 EDT, Height/Length Dosing, 99.3, kg, 02/04/21 6:14:00 EDT, Weight Dosing Start Date: 02/06/21 Status: Ordered cephalexin 500 mg oral capsule (5 sources) Cephalosporin Antibacterial Start: 01-15-2025 End: 01-25-2025 take 1 capsule by mouth in the morning, then take 1 capsule by mouth in the evening, then take 1 capsule by mouth at bedtime, then take 1 capsule by mouth three times daily cephalexin (Keflex) 500 MG capsule Indications: Skin and Skin Structure Infection Take 1 capsule (500 mg) by mouth in the morning and 1 capsule (500 mg) in the evening and 1 capsule (500 mg) before bedtime. Do all this for 10 days. TAKE 1 PILL P.O. T.I.D. FOR 10 DAYS. 30 capsule 01/15/2025 01/25/2025 Active levothyroxine sodium 0.125 mg oral tablet (20 [...] 2024 11:00pm March 14, 2024 1:17pm Start: 08-15-2023 take 1 tablet by chiqui th once daily levothyroxine 137 mcg (0.137 mg) Tab 137 mcg = 1 tab(s), Oral, Daily, Refills(s) 0 Start Date: 08/15/23 Status: Ordered Repeat number: 1 Start: 02-02-2023 take 1 tablet by chiqui th in the morning levothyroxine (Synthroid, Levoxyl) 137 MCG tablet Take 137 mcg by mouth in the morning. 02/02/2023 Active Start: 11-14-2019 take 1 tablet by chiqui th once daily Synthroid 150 mcg (0.15 mg) Tab 150 microgram = 1 tab(s), Oral, Daily, # 90 tab(s), Refills(s) 0, Pharmacy: [facility]/pharmacy #[id number], 160, cm, 04/06/19 13:58:00 EDT, Height/Length Measured, 91.2, kg, 04/06/19 13:58:00 EDT, Weight Measured Start Date: 11/14/19 Status: Ordered take 1 capsule by mo [facility] once daily in the morning Levothyroxine [...] 1 TABLET BY MOUTH EVERY DAY Start: 08-15-2023 End: 03-14-2024 take 1 tablet by mouth [...] blood sugar Start Date: 09/25/20 Status: Ordered methylPREDNISolone 4 mg oral tablet (2 sources) [...] WEEK Tirzepatide (Mounjaro) 2.5 MG/0.5ML solution pen-injector (20 sources) Tirzepatide (Chiqui njaro) 2.5 MG/0.5ML solution pen-injector Inject under the skin. Active Zofran ODT 4 mg Tab-Dis (5 sources) Start: 01-22-2025 take 1 tablet by mouth every six hours Zofran ODT 4 mg Tab-Dis 4 mg = 1 tab(s), Oral, q6hr, # 12 tab(s), Refills(s) 0, Pharmacy: [facility]/pharmacy #[id number], 162, cm, 01/21/25 22:41:00 EDT, Height/Length Dosing, 94.6, kg, 01/21/25 22:41:00 EDT, Weight Dosing Start Date: 01/22/25 Status: Ordered Quantity: 12.0 Unit: tab(s) Repeat number: 1 Start: 02-01-2021 take 1 tablet by chiqui th every eight hours Zofran ODT 4 mg [...] s of breath, 1 EA, Refill(s) 0, [facility]/pharmacy #[id number] Start Date: 02/26/19 Status: Ordered sulfamethoxazole 800 [...] Documented Da te Episodic/Chronic Acquired foot deformities (12 sources) Hallux valgus (acquired), left foot; Translations: [Hallux valgus (acquired)] 12-04-2024 Chronic Asthma (5 sources) Asthma 11-09-2013 Chronic Deficiency and other anemia (20 sources) Iron deficiency anemia due to blood loss; Translations: [Iron deficiency anemia secondary to blood loss (chronic)] Onset: 09-09-2020 03-11-2023 Chronic Deficiency and other anemia (12 sources) Iron deficiency anemia; Translations: [Other iron deficiency anemias] 03-19-2024 Episodic Deficiency and other anemia (2 sources) Other iron deficiency anemias Episodic Deficiency and other anemia (2 sources) Iron deficiency anemia, unspecified; Translations: [Iron deficiency anemia, unspecified] 03-19-2024 Episodic Diabetes mellitus with complications (20 sources) Type 2 diabetes mellitus; Translations: [Type 2 diabetes mellitus with hyperglycemia] Chronic Diabetes mellitus without complication (16 sources) Diabetes mellitus; Translations: [Diabetic on insulin] Onset: 06-09-2022 Resolved: 05-04-2011 11-09-2013 Chronic Disorders of lipid metabolism (20 sources) Endogenous hyperlipidemia; Translations: [Hypercholesterolem ia] Onset: 10-02-2020 01-05-2019 Chronic Essential hypertension (2 sources) Essential (primary) hypertension; Translations: [Hypertensive disorder] Onset: 09-20-2022 08-15-2023 Chronic Genitourinary symptoms and ill-defined conditions (4 sources) Dysuria; Translations: [Dysuria] Onset: 12-12-2022 Episodic Headache; including migraine (6 sources) Migraine without aura, not refractory ; Translations: [Migraine without aura, not intractable, without status migrainosus] Onset: 12-31-2021 Chronic Malaise and fatigue (5 sources) Asthenia; Translations: [Weakness] Onset: 02-05-2022 Episodic Miscellaneous mental health disorders (5 sources) Chronic insomnia 01-05-2019 Chronic Nutritional deficiencies (5 sources) Vitamin D deficiency 01-05-2019 Chronic Other aftercare (1 source) penitentiary (current) use of oral hypoglycemic drugs; Translations: [RESIDENTIAL USE ORAL HYPOGLYCEMIC DX] Onset: 12-14-2022 Episodic Other aftercare (1 source) Other terminal block assembler (current) drug therapy; Translations: [OTH FLAVORING OIL FILTERER CURRENT DRUG THERAPY] Onset: 12-14-2022 Episodic Other circulatory disease (1 source) History of transient ischemic attack 08-15-2023 Episodic Other connective tissue disease (1 source) Neurological finding; Translations: [Other symptoms and signs involving the nervous system] Onset: 02-05-2022 Episodic Other connective tissue disease (3 sources) Foot pain; Translations: [Pain in left foot] 03-19-2024 Episodic Other connective tissue disease (2 sources) Pain in left foot; Translations: [Pain in limb] 03-19-2024 Episodic Other connective tissue disease (11 sources) Plantar fasciitis; Translations: [Plantar fascial fibromatosis] 09-10-2024 Episodic Other connective tissue disease (3 sources) Calcaneal spur of left foot; Translations: [Calcaneal spur, left foot] 09-10-2024 Episodic Other connective tissue disease (4 sources) Deformity of lower limb; Translations: [Contracture of muscle, left lower leg] 09-10-2024 Episodic Other connective tissue disease (6 sources) Pain in left foot; Translations: [Pain in left foot] 01-15-2025 Episodic Other hereditary and degenerative nervous system conditions (5 sources) Restless legs 09-25-2020 Chronic Other nutritional; endocrine; and metabolic disorders (5 sources) Obesity 02-26-2019 Chronic Other screening for suspected conditions (not mental disorders or infectious disease) (5 sources) Serum iron low 03-31-2019 Episodic Other upper respiratory infections (5 sources) Sinusitis 03-19-2019 Chronic Paralysis (5 sources) Left hemiplegia 04-06-2019 Chronic Residual codes; [...] ISCHEMIC ATTACK UNS] Onset: 02-15-2022 Chronic Unclassified (5 sources) Scientologist orthodoxy (orthodoxy/philosoph y) 08-23-2011 Urinary tract infections (1 source) Urinary tract infection, site not specified; Translations: [UTI SITE NOT SPECIFIED] Onset: 12-14-2022 Episodic Past or Other Problems Problem Classification Problem Date Documented Date Episodic/Chronic Diabetes or abnormal glucose tolerance complicating ; childbirth; or the puerperium (5 sources) Gestational diabetes mellitus, class A>2< Resolved: 07-28-2011 09-12-2011 Episodic E Codes: Unspecified (20 sources) Does pursue bahai activities; Translations: [Activity, other specified] Onset: 10-02-2020 03-11-2023 Episodic Heart valve disorders (20 sources) Heart murmur; Translations: [Systolic murmur] Onset: 10-02-2020 03-31-2019 Episodic Comment on above: new last week per pc p Other nervous system disorders (1 source) Paresthesia of skin; Translations: [PARESTHESIA OF SKIN] Onset: 02-17-2022 Episodic Other and delivery including normal (20 sources) Vaginal delivery; Translations: [Encounter for full-term uncomplicated delivery] Onset: 09-19-2020 03-11-2023 Episodic Results Test Name Value Interpretation Reference Range Facility XR Foot - left 3 [facility] Result: Three views were taken today AP/MO/LAT foot: No fractures or dislocations seen excellent position alignment of the great toe joint fixation intact trabeculation noted across the osteotomy site [facility] Study observation (narrative) [facility] XR Foot - left 3 [facility] Result: Three views were taken today AP/MO/LAT foot: No fractures or dislocations seen excellent position alignment of the great toe joint fixation intact left foot [facility] Study observation (narrative) [facility] ED Clinical Summaryon 2024 ED Clinical Summary ED Clinical Summary [place] [id number] ED Clinical Summary Person Information Name: APRYL DOWNS/[facility] Age: 44 Years : 1980 Sex: Female Language: Russian PCP: AMANDA VILLAFANA MD Marital Status: Phone: [phone] Visit Id: Visit Reason: Vomiting; Nausea; Headache - Recurrent; MIGRAINE Speciality: Acuity: 3 Enc Type: Emergency Med Service: Emergency Arrival: 01/21/2025 22:28:55 Discharge: 01/22/2025 00:38:35 LOS: 000 02:10 Checkin: 01/21/2025 22:28:55 Checkout: 01/22/2025 00:38:35 Dispo Type: Home (Routine DC) EVENTS: Event Name Event Status Request Date/Time Start Date/Time Complete Date/Time Arrive Complete 01/21/2025 22:28:55 01/21/2025 22:28:55 01/21/2025 22:28:55 Document Home Meds Request 01/21/2025 22:28:55 Triage Complete 01/21/2025 22:28:55 01/21/2025 22:41:44 01/21/2025 22:41:44 Dr Exam Complete 01/21/2025 22:32:36 01/21/2025 22:32:36 01/21/2025 22:32:36 Registration Complete 01/21/2025 22:32:36 01/21/2025 22:35:35 01/21/2025 22:35:35 Reg Complete Request 01/21/2025 22:35:35 Reg Bed Request Complete 01/21/2025 22:35:35 01/21/2025 22:35:35 01/21/2025 22:35:35 Bed Assign Complete 01/21/2025 22:42:54 01/21/2025 22:42:54 01/21/2025 22:42:54 RN Exam Complete 01/21/2025 22:42:54 01/21/2025 23:45:09 01/21/2025 23:45:09 Meds Admin Request 01/21/2025 22:58:53 Discharge Complete 01/22/2025 00:26:41 01/22/2025 00:38:41 01/22/2025 00:38:41 Transfer Complete 01/22/2025 00:38:41 01/22/2025 00:38:41 01/22/2025 00:38:41 ADDRESS: [address] [place] [id number] PHYS DOC NOTES: MEDICAL INFORMATION: Prescriptions Given: New Medications [id number], [address], [place] [id number], [phone] ondansetron (Zofran ODT 4 mg Tab-Dis) 1 Tablets By Mouth every 6 hours. Refills: 0. Medications to Continue with No Changes Other Medications amitriptyline (amitriptyline 50 mg Tab) as directed. levothyroxine (levothyroxine 137 mcg (0.137 mg) Tab) 1 Tablets By Mouth every day. lisinopril (lisinopril 20 mg Tab) 1 Tablets By Mouth every day. metformin (metformin 750 mg ER Tab) as directed. tirzepatide (Mounjaro 7.5 mg/0.5 mL subcutaneous solution) Subcutaneous, 0 Refill(s). PATIENT EDUCATION INFORMATION: Instructions: Migraine Headache, [id number] Follow up: With: Address: When: [address], [place] [address] Business (1) In 3 days 01/25/2025 Comments: You can use the Zofran every 6 hours as needed for nausea and vomiting. Please follow-up with your primary care doctor and neurology for further evaluation management of your symptoms. Please return to the ED for any new or worsening symptoms. With: Address: When: AMANDA VILLAFANA [facility] [place] [id number] Business (1) In 3 days DIAGNOSIS: Headache, migraine Normal [facility] ED Note-Physicianon 01-23-20 ED Note-Physician ED Note-Physician Basic Information Time Seen: Pedro Syed DO 01/21/2025 22:32 Chief Complaint pt to ED with c/o migraine. states gets them often. nauseated with vomtiing per pt. light sensitive. requesting no Reglan d/t making pt sick. denies allergy. emesis x2 in triage. migraine since awaking this AM. History of Present Illness Patient is a 44-year-old female with past medical history of diabetes, hypertension, hypothyroidism, recurrent migraines presenting to the ED for evaluation of a migraine headache. Patient states started this morning with nausea and vomiting sensitivity to light. Patient states this feels similar to her previous migraines. Patient describes the pain as all over going down the back of her neck. Denies any fevers, chills, recent illness. Review of Systems A 10 point review of systems is negative except as noted above. Medical and Surgical History: Reviewed and noted Social history: Lives at home Tobacco: Denies Physical Exam Vitals & Measurements T: 36.9 ???C(Oral) HR: 80(Peripheral) RR: 18 BP: 184/91 SpO2: 96% HT: 162 cm WT: 94.6 kg BMI: 36.05 General: Well developed, non toxic appearing, no acute distress HEENT: Head atraumatic, Mucosa moist, hearing grossly normal Neck: No JVD, tracheal deviation Cardiac: Regular rate, rhythm, no murmurs, or gallops, 2+ radial pulses Respiratory: Lungs clear to auscultation B/L, normal respiratory effort Abdomen: Soft non tender, no rebound or guarding, no peritoneal signs Extremities: No edema noted in the LE B/L, no tenderness to palpation Neurologic: Alert and oriented, speech clear, cranial nerves III through XII intact, no focal neurologic deficits Skin: No rashes or lesions Psych: Appropriate mood and behavior Medical Decision Making On reevaluation patient reports improvement of her symptoms. She is given prescription for Zofran. She is also given referral to neurology for further management of her migraines. She is to return to the ED for any new or worsening symptoms. MEDICAL DECISION MAKING Number and Complexity of Problems Differential Diagnosis: [] [facility] Data External documents reviewed: [] My EKG interpretation: [] My CT interpretation: [] My X-ray interpretation: [] My Ultrasound interpretation: [] Decision rules/scores evaluated: [] Discussed with: [] Treatment and Disposition ED Course: Patient is a 44-year-old female presenting to the ED for evaluation of a migraine headache. Patient history of recurrent migraines, states it is unchanged from her previous. No red flag symptoms on examination. Patient requesting no Reglan as it does not sit well with her. She is given Toradol, Zofran, Decadron and addition of magnesium and IV fluids. No indication for imaging at this time. Shared decision making: [] Code status: [] Assessment/Plan Headache, migraine (G43.909: Migraine, unspecified, not intractable, without status migrainosus) Orders: dexamethasone, 10 mg = 1 mL, Injection, IV Push, Once, Stop date 01/21/25 22:58:00 EDT, STAT, Start date 01/21/25 22:58:00 EDT, Administer over no less than one minute, 01/21/25 22:58:00 EDT ketorolac, 30 mg = 1 mL, Injection, IV Push, Once, Stop date 01/21/25 22:57:00 EDT, STAT, Start date 01/21/25 22:57:00 EDT, 01/21/25 22:57:00 EDT magnesium sulfate + Generic Diluent 50 mL, 2 gram = 50 mL, IV Piggyback, Once, Stop date 01/21/25 22:58:00 EDT, STAT, Start date 01/21/25 22:58:00 EDT, 50 mL/hr, Infuse over 1 hour(s), 01/21/25 22:58:00 EDT ondansetron, 4 mg = 2 mL, Injection, IV Push, Once, Stop date 01/21/25 22:58:00 EDT, STAT, Start date 01/21/25 22:58:00 EDT, 01/21/25 22:58:00 EDT ondansetron, 4 mg = 1 tab(s), Oral, q6hr, # 12 tab(s), Refills(s) 0, Pharmacy: [facility]/pharmacy #[id number], 162, cm, 01/21/25 22:41:00 EDT, Height/Length Dosing, 94.6, kg, 01/21/25 22:41:00 EDT, Weight Dosing Sodium Chloride 0.9% intravenous solution 1,000 mL, 1,000 mL, IV, 983.61 mL/hr, for 30 day(s), Stop date 02/20/25 22:57:00 EDT, STAT, Start date 01/21/25 22:58:00 EDT, 61 minute(s), Total volume (mL): 1,000, 94.6 kg, 2.06, m2 Medications Administered Given Sodium Chloride 0.9% IV Jossy 1000 mL 1,000 mL, 1000 mL, IV dexamethasone 10 mg/mL Inj 1 mL, 10 mg, IV Push ketorolac 30 mg/mL Inj 1 mL, 30 mg, IV Push magnesium additive 2 gm + premix generic diluent 50 mL, IV Piggyback Zofran 4 mg/2 mL Injection, 4 mg, IV Push Disposition Plan Discharge Prescription List Prescriptions Zofran ODT 4 mg Tab-Dis, 4 mg= 1 tab(s), Oral, q6hr Follow-up With When Contact Information Brigido Fisher In 3 days 01/25/[address] [place] [address]- Business (1) Additional Instructions: You can use the Zofran every 6 hours as needed for nausea and vomiting. Please follow-up with your primary care doctor and neurology for further evaluation management of your symptoms. Please return to the ED for any new or worsening symptoms. AMANDA VILLAFANA In 3 days 1 (more content not included)... Normal [facility] Comment on above: Result Comment: Elec tronically Signed By: Pedro Syed DO\.br\Date and Time Signed: 01/22/25 00:53 EDT ED Patient Summaryon 025 ED Patient Summary ED Patient Summary [place] [id number] Patient Discharge Instructions Person Information Name: APRYL DOWNS Age: 44 Years Arrival Date: 01/21/2025 22:28:55 Discharge Diagnosis: Headache, migraine Primary Care Physician: AMANDA VILLAFANA MD Provider Information Primary Provider: Pedro Syed DO Advanced Sock Drier:None The exam and treatment you received in the Emergency Department were for an urgent problem and are not intended as complete care. It is important that you follow up with a doctor, nurse practitioner, or physician???s nurse practitioner physicians assistant for ongoing care. If your symptoms become worse or you do not improve as expected and you are unable to reach your usual health care provider, you should return to the Emergency Department. We are available 24 hours a day. APRYL DOWNS has been given the following list of patient education materials, prescriptions and follow-up instructions: Follow-up Instructions: With: Address: When: Brigido Fisher [address], [place] [id number] [employer] (1) In 3 days 01/25/2025 Comments: You can use the Zofran every 6 hours as needed for nausea and vomiting. Please follow-up with your primary care doctor and neurology for further evaluation management of your symptoms. Please return to the ED for any new or worsening symptoms. With: Address: When: AMANDA VILLAFANA [address] [place], [place] [address] [employer] (1) In 3 days In the event that this physician does not participate in your insurance network, please consult with your insurance company to find a nearby participating provider. Patient Education Materials: Migraine Headache, [id number] A MESSAGE TO ALL PATIENTS REGARDING OPIOIDS PRESCRIPTION OPIOIDS: WHAT YOU NEED TO KNOW Prescription opioids can be used to help relieve zewapsyj-yr-xolrot pain and are often prescribed following a surgery or injury, or for certain health conditions. These medications can be an important part of the treatment but also come with serious risks. It is important to work with your healthcare provider to make sure you are getting the safest, most effective care. WHAT ARE THE RISKS AND SIDE EFFECTS OF OPIOID USE? Prescription opioids carry serious risks of addiction and overdose, especially with prolonged use. An opioid overdose, often marked by slowed breathing, can cause sudden . The use of prescription opioids can have a number of side effects as well, even when taken as directed: ??? Tolerance???meaning you might need to take more of the medication for the same pain relief ??? Physical dependence???meaning you have symptoms of withdrawal when a medication is stopped ??? Increased sensitivity to pain ??? Constipation ??? Nausea, vomiting, and dry mouth ??? Sleepiness and dizziness ??? Confusion ??? Depression ??? Low levels of testosterone that can result in lower sex drive, energy, and strength ??? Itching and sweating RISKS ARE GREATER WITH: ??? History of drug misuse, substance use disorder, or overdose ??? Mental health conditions (such as depression or anxiety) ??? Sleep apnea ??? Older age (65 years and older) ??? Avoid alcohol while taking prescription opioids. Also, unless specifically advised by your health care provider, medications to avoid include: ??? Benzodiazepines (such as Xanax or Valium) ??? Muscle relaxants (such as Soma or Flexeril) ??? Hypnotics (such as Ambien or Lunesta) ??? Other prescription opioids KNOW YOUR OPTIONS Talk to your health care provider about ways to manage your pain that don???t involve prescription opioids. Some of these options may actually work better and have fewer risks and side effects. Options may include: ??? Pain relievers such as acetaminophen, ibuprofen, and naproxen ??? Some medication that are also used for depression or seizures ??? Physical therapy and exercise ??? Cognitive behavioral therapy, a psychological, goal-directed approach, in which patients learn how to modify physical, behavioral, and emotional triggers of pain and stress. IF YOU ARE PRESCRIBED OPIOIDS FOR PAIN: ??? Never take opioids in greater amounts or more often than prescribed. ??? Follow up with your primary health care provider. o Work together to create a plan on how to manage your pain. o Talk about ways to help manage your pain that don???t involve prescription opioids. o Talk about any and all concerns and side effects. ??? Help prevent misuse and abuse o Never sell or share prescription opioids. o Never use another person???s prescription opioids. ??? Store prescription opioids in a secure place and out of reach of others (this may include visitors, children, friends, and family). ??? Safely dispose of unused prescription opioids: Find your community drug take (more content not included)... Normal [facility] XR Foot - left 3 Viewson Imaging Result: Radiographs: AP/MO/LAT: Three views were taken today AP/MO/LAT foot: No fractures or dislocations seen excellent position alignment of the great toe joint fixation intact [facility] Radiology Study observation (narrative) [facility] ALL CBC WITH AUTO DIFFon BASOPHILS ABSOLUTE AUTO 0 [facility] Basophils/100 WBC (Bld) 0.6 % 0.2 - 2.0 % [facility] Eosinophils/100 WBC (Bld) 1.6 % 0.9 - 7.0 % [facility] Erythrocyte distribution width (RBC) [Ratio] 13.9 % 11.0 - 15.0 % [facility] Hematocrit (Bld) [Volume fraction] 37.9 % 36.0 - 48.0 % [facility] Hemoglobin (Bld) [Mass/Vol] 12.6 g/dL 12.0 - 16.0 g/dL [facility] IMMATURE GRANULOCYTES ABS AUTO 0.02 [facility] Immature granulocytes/100 WBC (Bld) 0.3 % 0.0 - 0.5 % [facility] LYMPHOCYTES ABSOLUTE AUTO 1.7 [facility] Lymphocytes/100 WBC (Bld) 23.4 % 20.5 - 60.0 % [facility] MCH (RBC) [Entitic mass] 28.7 pg 26.7 - 34.0 pg [facility] MCHC (RBC) [Mass/Vol] 33.2 g/dL 29.9 - 35.2 g/dL [facility] MCV (RBC) [Entitic vol] 86.3 fL 81.0 - 99.0 fL [facility] MONOCYTES ABSOLUTE AUTO 0.7 [facility] Monocytes/100 WBC (Bld) 9.2 % 1.7 - 12.0 % [facility] NEUTROPHILS ABSOLUTE AUTO 4.6 [facility] Neutrophils/100 WBC (Bld) 64.9 % 43.0 - 75.0 % [facility] Platelet mean volume (Bld) [Entitic vol] 10.1 fL 9.5 - 13.5 fL [facility] TBH EO # 0.1 [facility]H PLT 263 [facility] RBC 4.39 [facility] WBC 7 [facility] XR FOOT LT MIN 3Von 01-03-[address] [address] XRay Report Signed Patient: APRYL DOWNS MR#: [id number] : 1980 Acct:[id number] Age/Sex: 44 / F ADM Date: 01/02/25 Loc: LAB Attending Dr: EARNEST SALOMON M.D. Ordering Physician: EARNEST SALOMON M.D. Date of Service: 01/02/25 Procedure(s): XR foot LT min 3V Accession Number(s): [id number] cc: Amanda Villafana M.D.; EARNEST SALOMON M.D. The [address] [address] Patient Name: APRYL DOWNS MRN: [facility]:[id number] date: 1980 Sex: F Assigned Patient Location: LAB Current Patient Location: LAB Accession/Order Number: [id number] Exam Date: 01/02/2025 15:35 Report Date: 01/02/2025 [...] Jr., D.O. 01/02/2025 3:36 PM Dictation Location: [place] [address] Electronically authenticated by: [id number] Y Date: 01/02/2025 15:36 Dictated By: Alan Rowan M.D. Signed By: 01/02/25 1538 DD/ 1536 TD/TT: Gliding Pilot Instructor: [facility] Radiology, Radiologist, - 01/02/[address] [address] XRay Report Signed Patient: APRYL DOWNS MR#: [id number] : 1980 Acct:[id number] Age/Sex: 44 / F ADM Date: 01/02/25 Loc: LAB Attending Dr: EARNEST SALOMON M.D. Ordering Physician: EARNEST SALOMON M.D. Date of Service: 01/02/25 Procedure(s): XR foot LT min 3V Accession Number(s): [id number] cc: Amanda Villafana M.D.; EARNEST SALOMON M.D. [address] [address] Patient Name: APRYL DOWNS MRN: [facility]:[id number] date: 1980 Sex: F Assigned Patient Location: LAB Current Patient Location: LAB Accession/Order Number: [id number] Exam Date: 01/02/2025 15:35 Report Date: 01/02/2025 [...] SPURRING. Impression dictated by: Alan Rowan Jr., D.OGianna 01/02/2025 3:36 PM Dictation Location: [place] [address] Electronically authenticated by: [id number] Y Date: 01/02/2025 15:36 Dictated By: Alan Rowan M.D. Signed By: 01/02/25 1538 DD/ 35 TD/TT: Gliding Pilot Instructor: AMAURY [facility] Radiology Study observation (narrative) [facility] XR FOOT LT MIN 3VOrdered By: Radiologist Radiology on 01-02-2025 [facility] Healthcare Work Phone: ECG 12-LEADon 12-24-2024 [place] [id number] Electrocardiograph Report Signed Patient: APRYL DOWNS MR#: [id number] : 1980 Acct:[id number] Age/Sex: 44 / F ADM Date: 12/24/24 Loc: CARD Attending Dr: EARNEST SALOMON M.D. Ordering Physician: EARNEST SALOMON M.D. 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 Measurements Intervals [place] Rate: 69 P: 36 NC: 121 QRS: 44 QRSD: 88 T: 47 QT: 398 QTc: 429 Interpretive Statements SINUS RHYTHM Normal ECG Compared to ECG 08/13/2021 17:51:10 ST (T wave) deviation no longer present Possible ischemia no longer present Electronically Signed On 12-24-2024 16:12:07 EDT by CESAR PINEDA M.D. Dictated By: CESAR PINEDA Signed By: 12/24/24 1612 12/24/24 1612 DD/ 1323 TD/TT: Gliding Pilot Instructor: [facility] Radiology, Radiologist, MD - 12/24/[address] [address] Electrocardiograph Report Signed Patient: APRYL DOWNS MR#: [id number] : 1980 Acct:[id number] Age/Sex: 44 / F ADM Date: 12/24/24 Loc: CARD Attending Dr: EARNEST SALOMON M.D. Ordering Physician: EARNEST SALOMON M.D. 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 Measurements Intervals [place] Rate: 69 P: 36 NC: 121 QRS: 44 QRSD: 88 T: 47 QT: 398 QTc: 429 Interpretive Statements SINUS RHYTHM Normal ECG Compared to ECG 08/13/2021 17:51:10 ST (T wave) deviation no longer present Possible ischemia no longer present Electronically Signed On 12-24-2024 16:12:07 EDT by CESAR PINEDA M.D. Dictated By: CESAR PINEDA Signed By: 12/24/24 1612 12/24/24 1612 DD/ 1323 TD/TT: Gliding Pilot Instructor: [facility] Radiology Study observation (narrative) [facility] ECG 12-LEADOrdered By: [employer]id [employer] Radiology on 12-24-2024 [facility] [place] Work Phone: Basophils Auto (Bld) [#/Vol] on 03-19-2024 Basophils (Bld) [#/Vol] 0.0 10 3/uL 0.0-0.1 [facility] Basophils/100 WBC Auto (Bld) on 03-19-2024 Basophils/100 WBC (Bld) 0.6 % 0.2-2.0 [facility] Eosinophils/100 WBC Auto (Bl d)on 03-19-2024 Eosinophils/100 WBC (Bld) 7.0 % 0.9-7.0 [facility] Erythrocyte distribution wid th Auto (RBC) [Ratio]on 03-19-2024 Erythrocyte distribution width (RBC) [Ratio] 13.6 % 11.0-15.0 [facility] Glucose mean value [Mass/vol ume] in Blood Estimated from glycated hemoglobinon 03-19-2024 Average glucose Estimated from glycated hemoglobin (Bld) [Mass/Vol] 123 mg/dL [facility] Hematocrit Auto (Bld) [Volum e fraction]on 03-19-2024 Hematocrit (Bld) [Volume fraction] 40.6 % 36.0-48.0 [facility] Hemoglobin [Mass/volume] in Bloodon 03-19-2024 Hemoglobin (Bld) [Mass/Vol] 13.1 g/dL 12.0-16.0 [facility] Laboratory - Chemistry and C hemistry - challengeon 03-19-2024 Ferritin [Mass/Vol] 14.0 ng/mL 8.0-252.0 [facility] Laboratory - Hematology and Cell countson 03-19-2024 HbA1c (Bld) [Mass fraction] 5.9 % 4.5-6.2 [facility] Comment on above: ADA RECOMMENDED LIMI T 4.0 - 6.0ADA THERAPEUTIC TARGET < 7.0ACTION SUGGESTED> 7.0 Immature granulocytes/100 WBC (Bld) 0.3 % 0.0-0.5 [facility] Leukocytes [#/volume] correc janel for nucleated erythrocytes in Blood by Automated counon 03-19-2024 WBC corrected for nucl RBC Auto (Bld) [#/Vol] 6.4 10 3/uL 4.0-11.0 [facility] Lymphocytes Auto (Bld) [#/Vo l]on 03-19-2024 Lymphocytes (Bld) [#/Vol] 1.3 10 3/uL 1.2-3.8 [facility] Lymphocytes/100 WBC Auto (Bl d)on 03-19-2024 Lymphocytes/100 WBC (Bld) 20.8 % 20.5-60.0 [facility] MCH Auto (RBC) [Entitic mass ]on 03-19-2024 MCH (RBC) [Entitic mass] 28.2 pg 26.7-34.0 [facility] MCHC Auto (RBC) [Mass/Vol]on 03-19-2024 MCHC (RBC) [Mass/Vol] 32.3 g/dL 29.9-35.2 [facility] MCV Auto (RBC) [Entitic vol] on 03-19-2024 MCV (RBC) [Entitic vol] 87.5 fL 81.0-99.0 [facility] Monocytes Auto (Bld) [#/Vol] on 03-19-2024 Monocytes (Bld) [#/Vol] 0.5 10 3/uL 0.3-0.8 [facility] Monocytes/100 WBC Auto (Bld) on 03-19-2024 Monocytes/100 WBC (Bld) 7.3 % 1.7-12.0 [facility] Neutrophils Auto (Bld) [#/Vo l]on 03-19-2024 Neutrophils (Bld) [#/Vol] 4.1 10 3/uL 1.4-6.5 [facility] Neutrophils/100 WBC Auto (Bl d)on 03-19-2024 Neutrophils/100 WBC (Bld) 64.0 % 43.0-75.0 [facility] No Panel Informationon 03-19 Eosinophils # (Auto) 0.5 10 3/uL 0.0-0.7 [facility] Immature Granulocyte # (Auto) 0.02 10 3/uL 0.00-0.03 [facility] Platelet mean volume Auto (B ld) [Entitic vol]on 03-19-2024 Platelet mean volume (Bld) [Entitic vol] 10.1 fL 9.5-13.5 [facility] Platelets Auto (Bld) [#/Vol] on 03-19-2024 Platelets (Bld) [#/Vol] 235 10 3/uL 150-450 [facility] RBC Auto (Bld) [#/Vol]on RBC (Bld) [#/Vol] 4.64 10 6/uL 4.20-5.40 [facility] CHEMISTRYOrdered By: SYSTEM SYSTEM on 03-08-2023 Albumin [Mass/Vol] 4.3 g/dL Normal 3.3 - 5.0 gm/dL FT Remisol Albumin/Globulin [Mass ratio] 1.1 {ratio} Normal [...] [Mass fraction] 5.8 % Normal <=5.9% [facility] CULTURE URINEon 12-14-2022 CULTURE URINE Isolate 1 [...] Trimethoprim/Sulfame thoxazole <=20 S F Normal [facility] Comment on above: Performed By: #### Jony HUGHES UMICRO #### [facility] [address] [place] [address] Dr. Dandy Dobson ER URINE PROFILEon 3 Bilirubin Ql (U) Negative Normal NEGATIVE [facility] Comment on above: Performed By: #### Jony HUGHES UMICRO #### [facility] [address] [place] [address] Dr. Dandy Dobson Clarity (U) SL CLOUDY Abnormal CLEAR [facility] Comment on above: Performed By: #### Jony HUGHES UMICRO #### [facility] [address] [place] [address] Dr. Dandy Dobson Color (U) LT. YELLOW Normal YELLOW [facility] Comment on above: Performed By: #### Jony HUGHES UMICRO #### [facility] [address] [place] [address] Dr. Dandy Dobson ERUD A micrscopic examination will be performed if indicated. Normal [facility] Comment on above: Performed By: #### Jony HUGHES UMICRO #### [facility] [address] [place] [address] Dr. Dandy Dobsno Glucose Ql (U) Negative Normal NEGATIVE [facility] Comment on above: Performed By: #### Jony HUGHES UMICRO #### [facility] [address] [place] [address] Dr. Dandy Dobson Hemoglobin Ql (U) SMALL Abnormal NEGATIVE [facility] Comment on above: Performed By: #### Jony HUGHES UMICRO #### [facility] [address] [place] [address] Dr. Dandy Dobson Ketones Ql (U) Negative Normal NEGATIVE [facility] Comment on above: Performed By: #### VERONICA SIERRA #### [facility] [address] [place] [address] Dr. Dandy Dobson LEUKOCYTES SMALL Abnormal NEGATIVE [facility] Comment on above: Performed By: #### VERONICA SIERRA #### [facility] [address] [place] [address] Dr. Dandy Dobson Nitrite Ql (U) Negative Normal NEGATIVE [facility] Comment on above: Performed By: #### VERONICA SIERRA #### [facility] [address] [place] [address] Dr. Dandy Dobson pH (U) 6.0 [pH] Normal 5-9 [facility] Comment on above: Performed By: #### VERONIAC SIERRA #### [facility] [address] [place] [address] Dr. Dandy Dobson Protein (U) [Mass/Vol] 30 mg/dL Abnormal NEGAT JACKELYN/ TRACE [facility] Comment on above: Performed By: #### VERONICA SIERRA #### [facility] [address] [place] [address] Dr. Dandy Dobson SPEC GRAVITY >=1.030 Abnormal 1.005-<=1.02 5 [facility] Comment on above: Performed By: #### VERONICA SIERRA #### [facility] [address] [place] [address] Dr. Dandy Dobson UR MICRO IND INDICATED Normal [facility] Comment on above: Performed By: #### VERONICA SIERRA #### [facility] [address] [place] [address] Dr. Dandy Dobson Urobilinogen Qn (U) 1.0 {Sarahi'U}/dL Normal 0.2 - 1. 0 [facility] Comment on above: Performed By: #### VERONICA SIERRA #### [facility] [address] [place] [address] Dr. Dandy Dobson URon 12-12-2022 , QUAL Negative Normal NEGATIVE [facility] Comment on above: Performed By: #### P REGU #### [facility] [address] [place] [address] Dr. Dandy Dobson URINE MICROSCOPIC ONLYon BACTERIA SMALL Abnormal NONE SEEN [facility] Comment on above: Performed By: #### E RUR, UMICRO #### [facility] [address] [place] [address] Dr. Dandy Dobson Bacteria identified Cx Nom (U) INDICATED Normal [facility] Comment on above: Performed By: #### E RUR, UMICRO #### [facility] [address] [place] [address] Dr. Dandy Dobson CAST NONE SEEN Normal NONE SEEN [facility] Comment on above: Performed By: #### E RUR, UMICRO #### [facility] [address] [place] [address] Dr. Dandy Dobson Crystals LM Nom (Urine sed) NONE SEEN Normal NONE SEEN [facility] Comment on above: Performed By: #### E RUR, UMICRO #### [facility] [address] [place] [address] Dr. Dandy Dobson Epithelial cells LM Ql (Urine sed) MODERATE Abnormal NONE SEEN /RARE [facility] Comment on above: Performed By: #### E RUR, UMICRO #### [facility] [address] [place] [address] Dr. Dandy Dobson MUCOUS NONE SEEN Normal NONE SEEN [facility] Comment on above: Performed By: #### E RUR, UMICRO #### [facility] [address] [place] [address] Dr. Dandy Dobson RBC 10-20 Abnormal 0-2 [facility] Comment on above: Performed By: #### E RUR, UMICRO #### [facility] [address] [place] [address] Dr. Dandy Dobson WBC (U) [#/Vol] /uL Abnormal NONE SEEN [facility] Comment on above: Performed By: #### E RUR, UMICRO #### [facility] [address] [place] [address] Dr. Dandy Dobson FREE T4on 11-29-2022 Free T4 [Mass/Vol] 1.10 ng/dL Normal 0.76-1.46 [facility] Comment on above: Performed By: #### HELEN SIERRARO #### [facility] [address] [place] [address] Dr. Dandy Dobson TSHon 11-29-2022 TSH 0.204 uIU/mL Critically low 0.358-3.740 [facility] Comment on above: Performed By: #### VERONICA SIERRA #### [facility] [address] [place] [address] Dr. Dandy Dobson CBC AUTO DIFFon 09-14-2022 BASO # 0.0 103/ul Normal 0.0-0.1 [facility] Comment on above: Performed By: #### C BC #### [facility] [address] [place] [address] Dr. Dandy Dobson Basophils/100 WBC (Bld) 0.4 % Normal 0.2-2.0 [facility] Comment on above: Performed By: #### C BC #### [facility] [address] [place] [address] Dr. Dandy Dobson EO # 0.1 103/ul Normal 0.0-0.7 [facility] Comment on above: Performed By: #### C BC #### [facility] [address] [place] [address] Dr. Dandy Dobson Eosinophils/100 WBC (Bld) 2.1 % Normal 0.9-7.0 [facility] Comment on above: Performed By: #### C BC #### [facility] [address] [place] [address] Dr. Dandy Dobson Erythrocyte distribution width (RBC) [Ratio] 13.7 % Normal 11.0-15.0 [facility] Comment on above: Performed By: #### C BC #### [facility] [address] [place] [address] Dr. Dandy Dobson Hematocrit (Bld) [Volume fraction] 38.7 % Normal 36.0-48.0 [facility] Comment on above: Performed By: #### C BC #### [facility] [address] [place] [address] Dr. Dandy Dobson Hemoglobin (Bld) [Mass/Vol] 12.6 g/dL Normal 12.0-16.0 [facility] Comment on above: Performed By: #### C BC #### [facility] [address] [place] [address] Dr. Dandy Dobson IG # 0.01 10e3/ul Normal 0.00-0.03 [facility] Comment on above: Performed By: #### C BC #### [facility] [address] [place] [address] Dr. Dandy Dobson IG % 0.2 % Normal 0.0-0.5 [facility] Comment on above: Performed By: #### C BC #### [facility] [address] [place] [address] Dr. Dandy Dobson LYMPH # 1.6 103/ul Normal 1.2-3.8 [facility] Comment on above: Performed By: #### C BC #### [facility] [address] [place] [address] Dr. Dandy Dobson Lymphocytes/100 WBC (Bld) 27.5 % Normal 20.5-60.0 [facility] Comment on above: Performed By: #### C BC #### [facility] [address] [place] [address] Dr. Dandy Dobson MANUAL DIFF REQ NO Normal [facility] Comment on above: Performed By: #### C BC #### [facility] [address] [place] [address] Dr. Dandy Dboson MCH (RBC) [Entitic mass] 27.1 pg Normal 26.7-34.0 [facility] Comment on above: Performed By: #### C BC #### [facility] [address] [place] [address] Dr. Dandy Dobson MCHC (RBC) [Mass/Vol] 32.6 g/dL Normal 29.9-35.2 [facility] Comment on above: Performed By: #### C BC #### [facility] [address] [place] [address] Dr. Dandy Dobson MCV (RBC) [Entitic vol] 83.2 fL Normal 81.0-99.0 [facility] Comment on above: Performed By: #### C BC #### [facility] [address] [place] [address] Dr. Dandy Dobson MONO # 0.6 103/ul Normal 0.3-0.8 [facility] Comment on above: Performed By: #### C BC #### [facility] [address] [place] [address] Dr. Dandy Dobson Monocytes/100 WBC (Bld) 9.9 % Normal 1.7-12.0 [facility] Comment on above: Performed By: #### C BC #### [facility] [address] [place] [address] Dr. Dandy Dobson NEUT # 3.4 103/ul Normal 1.4-6.5 [facility] Comment on above: Performed By: #### C BC #### [facility] [address] [place] [address] Dr. Dandy Dobson Neutrophils/100 WBC (Bld) 59.9 % Normal 43.0-75.0 [facility] Comment on above: Performed By: #### C BC #### [facility] [address] [place] [address] Dr. Dandy Dobson Platelet mean volume (Bld) [Entitic vol] 9.7 fL Normal 9.5-13.5 [facility] Comment on above: Performed By: #### C BC #### [facility] [address] [place] [address] Dr. Dandy Dobson PLT 230 103/ul Normal 150-450 [facility] Comment on above: Performed By: #### C BC #### [facility] [address] [place] [address] Dr. Dandy Dobson RBC 4.65 106/ul Normal 4.20-5.40 [facility] Comment on above: Performed By: #### C BC #### [facility] [address] [place] [address] [address] Dandy Dobson WBC 5.6 103/ul Normal 4.0-11.0 [facility] Comment on above: Performed By: #### C BC #### [facility] [address] [place] [address] Dr. Dandy Dobson FERRITINon 09-14-2022 Ferritin [Mass/Vol] 52.0 ng/mL Normal 6.2-137.0 [facility] Comment on above: Performed By: #### V ITB12, IRON, FT4, FERR #### [facility] [address] [place] [address] Dr. Dandy Dobson FREE T4on 09-14-2022 Free T4 [Mass/Vol] 1.69 ng/dL Critically high 0.76-1.46 [facility] Comment on above: Performed By: #### V ITB12, IRON, FT4, FERR #### [facility] [address] [place] [address] Dr. Dandy Dobson GLYCOHEMOGLOBIN A1Con 2022 ADA RECOMMENDATION SEE BELOW Normal [facility] Comment on above: Result Comment: ADA RECOMMENDED LIMIT 4.0 - 6.0 ADA THERAPEUTIC TARGET < 7.0 ACTION SUGGESTED > 7.0 Performed By: #### HELEN SIERARRO #### [facility] [address] [place] [address] Dr. Dandy Dobson Glucose [Mass/Vol] 134 mg/dL Normal [facility] Comment on above: Performed By: #### HELEN SIERRARO #### [facility] [address] [place] [address] Dr. Dandy Dobson HbA1c (Bld) [Mass fraction] 6.3 % Critically high 4.5-6.2 [facility] Comment on above: Performed By: #### Jony HUGHES UMVANESSARO #### [facility] [address] [place] [address] Dr. Dandy Dobson IRONon 01-17-2023 Iron [Mass/Vol] 42.0 ug/dL Critically low 50.0-170.0 [facility] Comment on above: Performed By: #### V ITB12, IRON, FT4, FERR #### [facility] [address] [address] [address] Dandy Dobson PROF 14(COMP METB)on 023 Albumin [Mass/Vol] 3.8 g/dL Normal 3.4-5.0 [facility] Comment on above: Performed By: #### Jony HUGHES, UMICRO #### [facility] [address] [place] [address] Dr. Dandy Dobson Albumin/Globulin [Mass ratio] 1.0 {ratio} Normal [facility] Comment on above: Performed By: #### Jony HUGHES, UMICRO #### [facility] [address] [place] [address] Dr. Dandy Dobson ALP [Catalytic activity/Vol] 66 U/L Normal 46-116 [facility] Comment on above: Performed By: #### Jony HUGHES, UMICRO #### [facility] [address] [place] [address] Dr. Dandy Dobson ALT [Catalytic activity/Vol] 20 U/L Normal 14-59 [facility] Comment on above: Performed By: #### Jony HUGHES, UMICRO #### [facility] [address] [place] [address] Dr. Dandy Dobson Anion gap [Moles/Vol] 11.3 mmol/L Normal [facility] Comment on above: Performed By: #### Jony HUGHES, UMICRO #### [facility] [address] [place] [address] Dr. Dandy Dobson AST [Catalytic activity/Vol] 16 U/L Normal 15-37 [facility] Comment on above: Performed By: #### Jony HUGHES, UMICRO #### [facility] [address] [place] [address] Dr. Dandy Dobson Bilirubin [Mass/Vol] 0.3 mg/dL Normal 0.2-1.0 [facility] Comment on above: Performed By: #### E RUR, UMICRO #### [facility] [address] [address] [address] Dandy Dobson Calcium [Mass/Vol] 9.0 mg/dL Normal 8.5-10.1 [facility] Comment on above: Performed By: #### E MELINDAR, UMICRO #### [facility] [address] [place] [address] Dr. Dandy Dobson Chloride [Moles/Vol] 103 mmol/L Normal 98-107 [facility] Comment on above: Performed By: #### E SAUL, UMICRO #### [facility] [address] [place] [address] Dr. Dandy Dobson CO2 [Moles/Vol] 28.2 mmol/L Normal 21.0-32.0 [facility] Comment on above: Performed By: #### Joyn HUGHES, UMICRO #### [facility] [address] [place] [address] Dr. Dandy Dobson Creatinine [Mass/Vol] 0.57 mg/dL Normal 0.55-1.02 [facility] Comment on above: Performed By: #### Jony HUGHES UMICRO #### [facility] [address] [place] [address] Dr. Dandy Dobson EGFR-AF SOU[place]UD[place] >60 Normal >=60 [facility] Comment on above: Performed By: #### Jony HUGHES, UMICRO #### [facility] [address] [place] [address] Dr. Dandy Dobson EGFR-NON AF [place] >60 Normal >=60 [facility] Comment on above: Performed By: #### E SAUL, UMICRO #### [facility] [address] [place] [address] Dr. Dandy Dobson Globulin (S) [Mass/Vol] 3.7 g/dL Normal [facility] Comment on above: Performed By: #### E SAUL, UMICRO #### [facility] [address] [place] [address] Dr. Dandy Dobson Glucose [Mass/Vol] 107 mg/dL Critically high 74-106 [facility] Comment on above: Performed By: #### VERONICA SIERRA #### [facility] [address] [place] [address] Dr. Dandy Dobson Potassium [Moles/Vol] 3.5 mmol/L Normal 3.5-5.1 [facility] Comment on above: Performed By: #### VERONICA SIERRA #### [facility] [address] [place] [address] Dr. Dandy Dobson Protein [Mass/Vol] 7.5 g/dL Normal 6.4-8.2 [facility] Comment on above: Performed By: #### VERONICA SIERRA #### [facility] [address] [place] [address] Dr. Dandy Dobson Sodium [Moles/Vol] 139 mmol/L Normal 136-145 [facility] Comment on above: Performed By: #### VERONICA SIERRA #### [facility] [address] [place] [address] Dr. Dandy Dobson Urea nitrogen [Mass/Vol] 12.0 mg/dL Normal 7.0-18.0 [facility] Comment on above: Performed By: #### VERONICA SIERRA #### [facility] [address] [place] [address] Dr. Dandy Dobson Urea nitrogen/Creatinine [Mass ratio] 21.1 mg/mg Normal [facility] Comment on above: Performed By: #### VERONICA SIERRA #### [facility] [address] [place] [address] Dr. Dandy Dobson TSHon 09-14-2022 TSH 0.015 uIU/mL Critically low 0.358-3.740 [facility] Comment on above: Performed By: #### HELEN SIERRARO #### [facility] [address] [place] [address] Dr. Dandy Dobson VITAMIN B12on 09-14-2022 Cobalamin (Vitamin B12) [Mass/Vol] 485.0 pg/mL Normal 193.0-986.0 [facility] Comment on above: Performed By: #### V ITB12, IRON, FT4, FERR #### [facility] [address] [address] [address] Dandy Dobson GLYCOHEMOGLOBIN A1Con 2021 ADA RECOMMENDATION SEE BELOW Normal [facility] Comment on above: Result Comment: ADA RECOMMENDED LIMIT 4.0 - 6.0 ADA THERAPEUTIC TARGET < 7.0 ACTION SUGGESTED > 7.0 Performed By: #### A 1C #### [facility] [address] [address] [address] Dandy Dobson Glucose [Mass/Vol] 143 mg/dL Normal [facility] Comment on above: Performed By: #### A 1C #### [facility] [address] [address] [address] Dandy Dobson HbA1c (Bld) [Mass fraction] 6.6 % Critically high 4.5-6.2 [facility] Comment on above: Performed By: #### A 1C #### [facility] [address] [address] [address] Dandy Dobson LIPID PROFILEon 06-09-2022 CHOL-HDL RATIO NORM SEE BELOW Normal [facility] Comment on above: Result Comment: 3.3 - 4.4 LOW RISK 4.4 - 7.1 AVERAGE RISK 7.1 - 11.0 MODERATE RISK >11.0 HIGH RISK Performed By: #### VERONICA SIERRA #### [facility] [address] [address] [address] Dandy Dobson Cholesterol [Mass/Vol] 138 mg/dL Normal <=200 [facility] Comment on above: Performed By: #### VERONICA SIERRA #### [facility] [address] [address] [address] Dandy Dobson Cholesterol in HDL [Mass/Vol] 46 mg/dL Normal 40-60 [facility] Comment on above: Performed By: #### VERONICA SIERRA #### [facility] [address] [address] [address] Dandy Dobson Cholesterol in LDL [Mass/Vol] 62.4 mg/dL Normal [facility] Comment on above: Performed By: #### Jony HUGHES, UMICRO #### [facility] [address] [address] [address] Dandy Dobson Cholesterol.total/Chol esterol in HDL [Mass ratio] 3.0 {ratio} Normal [facility] Comment on above: Performed By: #### Jony HUGHES, UMICRO #### [facility] [address] [address] [address] Dandy Dobson HDL NORMAL > or = 60 mg/dl - LOW CARDIOVASCULAR RISK <40 mg/dl - HIGH CARDIOVASCULAR RISK Normal [facility] Comment on above: Performed By: #### Jony HUGHES UMICRO #### [facility] [address] [place] [address] Dr. Dandy Dobson LDL CALC NORMAL SEE BELOW Normal [facility] Comment on above: Result Comment: <100 mg/dl OPTIMAL 100 - 129 mg/dl NEAR OR ABOVE OPTIMAL 130 - 159 mg/dl BORDERLINE HIGH 160 - 189 mg/dl HIGH >190 mg/dl VERY HIGH Performed By: #### Jony HUGHES, UMICRO #### [facility] [address] [place] [address] Dr. Dandy Dobson Triglyceride [Mass/Vol] 148 mg/dL Normal <=150 [facility] Comment on above: Performed By: #### Jony HUGHES UMICRO #### [facility] [address] [place] [address] Dr. Dandy Dobson VLDL CALC 29.6 mg/dL Normal [facility] Comment on above: Performed By: #### Jony HUGHES UMICRO #### [facility] [address] [place] [address] Dr. Dandy Dobson PROF CHEM 8 (BAS METB)on Anion gap [Moles/Vol] 9.4 mmol/L Normal [facility] Comment on above: Performed By: #### Jony HUGHES, UMICRO #### [facility] [address] [place] [address] Dr. Dandy Dobson Calcium [Mass/Vol] 8.7 mg/dL Normal 8.5-10.1 [facility] Comment on above: Performed By: #### E SAUL, UMICRO #### [facility] [address] [address] [address] Dandy Dobson Chloride [Moles/Vol] 104 mmol/L Normal 98-107 [facility] Comment on above: Performed By: #### E SAUL, UMICRO #### [facility] [address] [place] [address] Dr. Dandy Dobson CO2 [Moles/Vol] 28.8 mmol/L Normal 21.0-32.0 [facility] Comment on above: Performed By: #### E SAUL, UMICRO #### [facility] [address] [place] [address] Dr. Dandy Dobson Creatinine [Mass/Vol] 0.67 mg/dL Normal 0.55-1.02 [facility] Comment on above: Performed By: #### Jony HUGHES UMICRO #### [facility] [address] [place] [address] Dr. Dandy Dobson EGFR-AF [place] >60 Normal >=60 [facility] Comment on above: Performed By: #### Jony HUGHES UMICRO #### [facility] [address] [place] [address] Dr. Dandy Dobson EGFR-NON AF [place] >60 Normal >=60 [facility] Comment on above: Performed By: #### Jony HUGHES, UMICRO #### [facility] [address] [place] [address] Dr. Dandy Dobson Glucose [Mass/Vol] 120 mg/dL Critically high 74-106 [facility] Comment on above: Performed By: #### E SAUL, UMICRO #### [facility] [address] [place] [address] Dr. Dandy Dobson Potassium [Moles/Vol] 4.2 mmol/L Normal 3.5-5.1 [facility] Comment on above: Performed By: #### E RUR, UMICRO #### [facility] [address] [place] [address] Dr. Dandy Dobson Sodium [Moles/Vol] 138 mmol/L Normal 136-145 [facility] Comment on above: Performed By: #### E VERONICA HUGHES #### [facility] [address] [address] [address] Dandy Dobson Urea nitrogen [Mass/Vol] 17.0 mg/dL Normal 7.0-18.0 [facility] Comment on above: Performed By: #### VERONICA SIERRA #### [facility] [id number] Dandy Dobson Urea nitrogen/Creatinine [Mass ratio] 25.4 mg/mg Normal [facility] Comment on above: Performed By: #### VERONICA SIERRA #### [facility] [address] [address] [address] Dandy Dobson MRI BRAIN WO CONon [...] by: MANJU CHAMPAGNE Date: 2022-02-15 16:53 Normal [facility] CHEMISTRYOrdered By: SYSTEM SYSTEM on 02-04-2022 Troponin I.cardiac [Mass/Vol] 4.40 pg/mL Low 10.10 - 27.10 pg/mL FT [facility] Anion gap [Moles/Vol] 12 mmol/L Normal 6 - 16 mEq/L [facility] Remisol Calcium [Mass/Vol] 8.8 mg/dL Low 8.9 - 11. 1 mg/dL [facility] Chloride [Moles/Vol] 102 mmol/L Normal 101 - 1 11 mmol/L [facility] CO2 [Moles/Vol] 24 mmol/L Normal 21 - 31 mmol/L [facility] Creatinine [Mass/Vol] 0.6 mg/dL Normal 0.5 - 1.3 mg/dL [facility] GFR/1.73 sq M.predicted among blacks MDRD (S/P/Bld) [Vol rate/Area] mL/min/1.73 m2 Normal >=59mL/min/1 .73 m2 [facility] Chem S GFR/1.73 sq M.predicted among non-blacks MDRD (S/P/Bld) [Vol rate/Area] mL/min/1.73 m2 Normal >=59mL/min/1 .73 m2 [facility] Chem S Glucose [Mass/Vol] 150 mg/dL Normal [...] 4.10 pg/mL Low 10.10 - 27.10 pg/mL FT [facility] Urea nitrogen [Mass/Vol] 10 mg/dL Normal 5 - 21 mg/dL [facility] Urea nitrogen/Creatinine [Mass ratio] 17 mg/mg Normal 10 - 20 [facility] CHEMISTRYOrdered By: Ciara quintana on 02-04-2022 Natriuretic peptide B (Bld) [Mass/Vol] 33 pg/mL Normal 5 - 80 pg/mL [facility] HemeManSS CHEMISTRYOrdered By: Lab ROP User on 02-04-2022 Glucose [Mass/Vol] 144 mg/dL High 55 - 99 mg/dL [facility] POC Subsection POC Device SN [id number] Invalid Interpretation Code [facility] POC Subsection POC User ID [id number] Invalid Interpretation Code [facility] POC Subsection POC Username RADHA REY Invalid Interpretation Code [facility] POC Subsection COAGULATIONOrdered By: Christina Colindres on 02-04-2022 aPTT Coag (PPP) [Time] 32.0 s Normal 25.1 - 36.5 second(s) [facility] Auto Coag INR Coag (PPP) [Relative time] 1.0 {INR} Invalid Interpretation Code [facility] Auto Coag PT Coag (PPP) [Time] 11.6 s Normal 10.2 - 12.9 second(s) [facility] Auto Coag HEMATOLOGYOrdered By: SYSTEM SYSTEM on [...] [Mass/Vol] Negative (02/04/22 7:21 PM) Normal Negative [facility] Auto SS Pulcifer.plasma/Pulcifer .RBC (Bld) [Mass ratio] 0-3 /HPF Normal 0-3/HPF [facility] UA Auto SS Nitrite Ql (U) Negative (02/04/22 7:21 PM) Normal Negative [facility] Auto SS pH (U) 7.0 *NA* (02/04/22 7:21 PM) Invalid Interpretation Code 5.0 - 9.0 [facility] UA Auto SS Protein (U) [Mass/Vol] Negative (02/04/22 7:21 PM) Normal Negative [facility] UA Auto SS Specific gravity (U) [Rel density] 1.010 *NA* (02/04/22 7:21 PM) Invalid Interpretation Code 1.005 - 1.030 [facility] Auto SS UA Spec Desc Random Urine (02/04/22 7:21 PM) Normal [facility] UA Auto SS Urobilinogen Qn (U) [id number] {Sarahi'U}/dL Normal 0.0 - 1.0 EU/dL [facility] Auto SS WBC Auto Ql (U) Negative (02/04/22 7:21 PM) Normal Negative [facility] UA Auto SS WBC LM.HPF (Urine sed) [#/Area] 0-5 /HPF Normal 0-5/HPF [facility] Auto SS CBC AUTO DIFFon 12-31-2021 BASO # 0.0 103/ul Normal 0.0-0.1 [facility] Comment on above: Performed By: #### C BC #### [facility] [address] [address] [address] Dandy oDbson Basophils/100 WBC (Bld) 0.2 % Normal 0.2-2.0 [facility] Comment on above: Performed By: #### C BC #### [facility] [address] [place], [place] [address] Dr. Dandy Dobson EO # 0.0 103/ul Normal 0.0-0.7 [facility] Comment on above: Performed By: #### C BC #### [facility] [address] [place] [address] Dr. Dandy Dobson Eosinophils/100 WBC (Bld) 0.1 % Critically low 0.9-7.0 [facility] Comment on above: Performed By: #### C BC #### [facility] [address] [place] [address] Dr. Dandy Dobson Erythrocyte distribution width (RBC) [Ratio] 13.9 % Normal 11.0-15.0 [facility] Comment on above: Performed By: #### C BC #### [facility] [address] [place] [address] Dr. Dandy Dobson Hematocrit (Bld) [Volume fraction] 42.7 % Normal 36.0-48.0 [facility] Comment on above: Performed By: #### C BC #### [facility] [address] [place] [address] Dr. Dandy Dobson Hemoglobin (Bld) [Mass/Vol] 13.9 g/dL Normal 12.0-16.0 [facility] Comment on above: Performed By: #### C BC #### [facility] [address] [place] [address] Dr. Dandy Dobson IG # 0.03 10e3/ul Normal 0.00-0.03 [facility] Comment on above: Performed By: #### C BC #### [facility] [address] [place] [address] Dr. Dandy Dobson IG % 0.3 % Normal 0.0-0.5 [facility] Comment on above: Performed By: #### C BC #### [facility] [address] [place] [address] Dr. Dandy Dobson LYMPH # 1.2 103/ul Normal 1.2-3.8 [facility] Comment on above: Performed By: #### C BC #### [facility] [address] [place] [address] Dr. Dandy Dobson Lymphocytes/100 WBC (Bld) 13.5 % Critically low 20.5-60.0 [facility] Comment on above: Performed By: #### C BC #### [facility] [address] [place] [address] Dr. Dandy Dobson MANUAL DIFF REQ NO Normal [facility] Comment on above: Performed By: #### C BC #### [facility] [address] [place] [address] Dr. Dandy Dobson MCH (RBC) [Entitic mass] 27.4 pg Normal 26.7-34.0 [facility] Comment on above: Performed By: #### C BC #### [facility] [address] [place] [address] Dr. Dandy Dobson MCHC (RBC) [Mass/Vol] 32.6 g/dL Normal 29.9-35.2 [facility] Comment on above: Performed By: #### C BC #### [facility] [address] [place] [address] Dr. Dandy Dobson MCV (RBC) [Entitic vol] 84.2 fL Normal 81.0-99.0 [facility] Comment on above: Performed By: #### C BC #### [facility] [address] [place] [address] Dr. Dandy Dobson MONO # 0.4 103/ul Normal 0.3-0.8 [facility] Comment on above: Performed By: #### C BC #### [facility] [address] [place] [address] Dr. Dandy Dobson Monocytes/100 WBC (Bld) 5.0 % Normal 1.7-12.0 [facility] Comment on above: Performed By: #### C BC #### [facility] [address] [place] [address] Dr. Dandy Dobson NEUT # 7.1 103/ul Critically high 1.4-6.[address] [facility] Comment on above: Performed By: #### C BC #### [facility] [address] [place] [address] Dr. Dandy Dobson Neutrophils/100 WBC (Bld) 80.9 % Critically high 43.0-75.0 [facility] Comment on above: Performed By: #### C BC #### [facility] [address] [address] [address] Dandy Dobson Platelet mean volume (Bld) [Entitic vol] 10.4 fL Normal 9.5-13.5 [facility] Comment on above: Performed By: #### C BC #### [facility] [address] [address] [address] Dandy Dobson PLT 256 103/ul Normal 150-450 [facility] Comment on above: Performed By: #### C BC #### [facility] [address] [place] [address] Dr. Dandy Dobson RBC 5.07 106/ul Normal 4.20-5.40 [facility] Comment on above: Performed By: #### C BC #### [facility] [address] [place] [address] Dr. Dandy Dobson WBC 8.8 103/ul Normal 4.0-11.0 [facility] Comment on above: Performed By: #### C BC #### [facility] [address] [place] [address] Dr. Dandy Dobson PROF CHEM 8 (BAS METB)on Anion gap [Moles/Vol] 11.2 mmol/L Normal [facility] Comment on above: Performed By: #### HELEN SIERRARO #### [facility] [address] [place] [address] Dr. Dandy Dobson Calcium [Mass/Vol] 8.2 mg/dL Critically low 8.5-10.1 [facility] Comment on above: Performed By: #### HELEN SIERRARO #### [facility] [address] [place] [address] Dr. Dandy Dobson Chloride [Moles/Vol] 100 mmol/L Normal 98-107 [facility] Comment on above: Performed By: #### HELEN SIERRARO #### [facility] [address] [place] [address] Dr. Dandy Dobson CO2 [Moles/Vol] 25.5 mmol/L Normal 21.0-32.0 [facility] Comment on above: Performed By: #### VERONICA SIERRA #### [facility] [address] [place] [address] Dr. Dandy Dobson Creatinine [Mass/Vol] 0.72 mg/dL Normal 0.55-1.02 [facility] Comment on above: Performed By: #### HELEN SIERRARO #### [facility] [address] [place] [address] Dr. Dandy Dobson EGFR-AF [place] >60 Normal >=60 [facility] Comment on above: Performed By: #### HELEN SIERRARO #### [facility] [address] [place] [address] Dr. Dandy Dobson EGFR-NON AF [place] >60 Normal >=60 [facility] Comment on above: Performed By: #### HELEN SIERRARO #### [facility] [address] [place] [address] Dr. Dandy Dobson Glucose [Mass/Vol] 201 mg/dL Critically high 74-106 T [facility] Comment on above: Performed By: #### HELEN SIERRARO #### [facility] [address] [place] [address] Dr. Dandy Dobson Potassium [Moles/Vol] 3.7 mmol/L Normal 3.5-5.1 [facility] Comment on above: Performed By: #### HELEN SIERRARO #### [facility] [address] [place] [address] Dr. Dandy Dobson Sodium [Moles/Vol] 133 mmol/L Critically low 136-145 Th [facility] Comment on above: Performed By: #### HELEN SIERRARO #### [facility] [address] [place] [address] Dr. Dandy Dobson Urea nitrogen [Mass/Vol] 9.0 mg/dL Normal 7.0-18.0 [facility] Comment on above: Performed By: #### HELEN SIERRARO #### [facility] [address] [place] [address] Dr. Dandy Dobson Urea nitrogen/Creatinine [Mass ratio] 12.5 mg/mg Normal [facility] Comment on above: Performed By: #### E VERONICA HUGHES #### [facility] [address] [address] [address] Dandy Rausch 01-22-2021 CNPN Telephone ([facility]) APRYL DOWNS ([id number]) 1980 F Date Time Provider Department 01/22/21 JOB WEBER During your visit today, we recorded the following information about you: Carla Barrera [facility] 01/22/2021 9:01 AM Signed Patient called in [...] be added to my schedule. Job Weber APRN.SPEECH ASSISTANT Carla Barrera [facility] 01/22/2021 10:39 AM Signed Called and spoke with patient. Patient has been scheduled to see Job 01/28 @ 11:00. Patient is aware she will be seeing Job for this appointment. 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 Encounter Status:Closed by MARJORIE NOBLES RN on 10/29/20 [facility] 10-06-2020 [facility] Telephone ([id number]) APRYL DOWNS ([id number]) 1980 F Date Time Provider Department 10/06/20 AYAH MUÑOZ [id number] During your visit today, we recorded the following information about you: Yoli March Pss 10/06/2020 9:46 AM Signed Apryl Downs called today. : 1980 Allergies: Oxycodone-Acetaminop hen (home) [phone] (cell) Reason for call: Patient calling with [...] of provider message. Work release sent via [employer]. Pt verbalized understanding. Lana Blackmon RN Allergies [...] Heart murmur [R01.1] 10/02/2020 More... 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 Letter Text Encounter Status:Closed by LANA BLCAKMON RN on 10/06/20 [facility] ANES POSTPROC EVALon 021 ANES POSTPROC EVAL HNO ID: [id number] Author: Naz Caballero Service: Anesthesiology Author Type: Anesthesiologist Type: Anesthesia Postprocedure Evaluation Filed: 10/03/2020 8:32 AM Note Text: POST ANESTHESIA EVALUATION NOTE : 1980 Procedure Summary Date: 10/03/20 Room / Location: AV OR05 / AV OR Anesthesia Start: 40 [...] October 03, 2020 TIME: 8:32 AM CSN: [id number] [facility] ANES PRE-OPon 10-03-2020 ANES PRE-OP HNO ID: [id number] Author: Naz Caballero Service: Anesthesiology Author Type: [...] October 03, 2020 TIME: 7:02 AM CSN: [id number] Normal [facility] OPERATIVE NOon 10-03-2020 OPERATIVE NO HNO ID: [id number] Author: Ayah Muñoz Service: Gynecology Author Type: Physician Type: Operative Report Filed: 10/03/2020 4:23 PM Note Text: [facility] - Operative Report APRYL DOWNS : 1980 AGE: 40. SEX: F PATIENT TYPE: A HOSP SVC: OBGYN LOCATION: [facility] ATTENDING PHYSICIAN: Ayah Muñoz M.D. CSN NUMBER: [id number] DATE OF SURGERY/PROCEDURE: 10/03/2020 INCISION/PROCEDURE START TIME: 7:57 AM INCISION CLOSE/PROCEDURE END TIME: 8:07 AM PREOPERATIVE DIAGNOSIS: Menorrhagia. POSTOPERATIVE DIAGNOSIS: Menorrhagia. SURGEON: Aayh Muñoz M.D. MACHINE CLOTH EXAMINER: None. SURGERY/PROCEDURE: Hysteroscopy, Ann endometrial ablation, D [...] x3. ESTIMATED BLOOD LOSS: 5 mL. Ankur Lovett:[id number] /[id number] Normal [facility] SURGICAL PATHOLOGYon 021 SURGICAL PATHOLOGY Specimen originated from [facility] Specimen #: [id number] Submitting Physician: AYAH MUÑOZ MD FINAL DIAGNOSIS [...] in five cassettes. Gross examination performed at [facility], [address] [place] [address] 10/03/2020 12:53:09 PM Date of Report: 10/06/2020 Date of Procedure: 10/03/2020 Date of Receipt: 10/03/2020 Submitted by: AYAH MUÑOZ MD Location: AV Diagnostic interpretation performed at [place] [address]. 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 Pt notified of the all surgery information above. Pt aware that she will require pre op testing prior to surgery and PAT number given to pt to call and schedule. Pt aware PAT needs completed to proceed with surgery. Pt is aware she will need to be at [facility] as instructed by [facility] and no solid food after midnight. The [facility] facility will contact the pt the day [...] for surgical case scheduled for 10/03/20 at [facility], please approve if appropriate. Spoke with pt. Pt aware if she can provider hard copy of positive test then she will not need test but if not she needs to be tested per [facility] surgery scheduling. COVID scheduled for 10/01/20 at 12:30 pm at [employer], pt aware. Progress Notes (BRISEIDA BRITO ): [...] anemia, seen for scheduled follow-up. (Former [facility] patient) INTERIM HISTORY: Apryl Downs returns for [...] on 10/09/2020 for a pelvic ultrasound the program officer's office will be calling her to set [...] medications. Continue management per PCP. Job Weber APRN.SPEECH ASSISTANT [facility] BASIC METABOLIC PANELon Calcium [Mass/Vol] 8.4 mg/dL Low 8.6-10.3 [facility] Comment on above: Order Comment: No: D o not add to previous draw Performed By: #### 3 1079 #### [facility] [address] [address], [facility] Chloride [Moles/Vol] 108 mmol/L High 98-107 [facility] Comment on above: Order Comment: No: D o not add to previous draw Performed By: #### 3 1079 #### [facility] [address] [place] [address], [place] CO2 [Moles/Vol] 25 mmol/L Normal 21-31 [facility] Comment on above: Order Comment: No: D o not add to previous draw Performed By: #### 3 1079 #### [facility] [address] [place] [address], [place] Creatinine [Mass/Vol] 0.45 mg/dL Low 0.60-1.20 [facility] Comment on above: Order Comment: No: D o not add to previous draw Performed By: #### 3 1079 #### [facility] [address] [address], [place] GFR/1.73 sq M predicted among blacks MDRD (S/P/Bld) [Vol rate/Area] mL/min/{1.73_m2} Normal >60 [facility] Comment on above: Order Comment: No: D o not add to previous draw Performed By: #### 3 1079 #### [facility] [address] [place] [address], [facility] GFR/1.73 sq M predicted among non-blacks MDRD (S/P/Bld) [Vol rate/Area] mL/min/{1.73_m2} Normal >60 [facility] Comment on above: Order Comment: No: D o not add to previous draw Performed By: #### 3 1079 #### [facility] [address] [place] [address], [place] Glucose [Mass/Vol] 123 mg/dL High 70-100 [facility] Comment on above: Order Comment: No: D o not add to previous draw Performed By: #### 3 1079 #### [facility] [address] [place] [address], [place] Potassium [Moles/Vol] 3.7 mmol/L Normal 3.5-5.1 [facility] Comment on above: Order Comment: No: D o not add to previous draw Performed By: #### 3 1079 #### [facility] [address] [place] [address], [place] Sodium [Moles/Vol] 137 mmol/L Normal 136-145 [facility] Comment on above: Order Comment: No: D o not add to previous draw Performed By: #### 3 1079 #### [facility] [address] [place] [address], [place] Urea nitrogen [Mass/Vol] 14 mg/dL Normal 7-25 [facility] Comment on above: Order Comment: No: D o not add to previous draw Performed By: #### 3 1079 #### [facility] [address] [place] [address], [place] CBC COMPLETE BLOOD COUNTon 0 - Erythrocyte distribution width (RBC) [Ratio] 13.4 % Normal 11.5-15.0 [facility] Comment on above: Order Comment: No: D o not add to previous draw Performed By: #### 3 1079 #### [facility] [address] [place] [address], [facility] Hematocrit (Bld) [Volume fraction] 36.6 % Normal 36.0-45.0 [facility] Comment on above: Order Comment: No: D o not add to previous draw Performed By: #### 3 1079 #### [facility] [address] [place] [address], [facility] Hemoglobin (Bld) [Mass/Vol] 11.7 g/dL Low 12.0-15.0 [facility] Comment on above: Order Comment: No: D o not add to previous draw Performed By: #### 3 1079 #### [facility] [address] [place] [address], [facility] MCH (RBC) [Entitic mass] 29.2 pg Normal 27.0-33.0 [facility] Comment on above: Order Comment: No: D o not add to previous draw Performed By: #### 3 1079 #### [facility] [address] [facility] [place] [address], [facility] MCHC (RBC) [Mass/Vol] 32.0 g/dL Normal 32.0-35.0 [facility] Comment on above: Order Comment: No: D o not add to previous draw Performed By: #### 3 1079 #### [facility] [address] [facility], [place] [address], [facility] MCV (RBC) [Entitic vol] 91.3 fL Normal 82.0-98.0 [facility] Comment on above: Order Comment: No: D o not add to previous draw Performed By: #### 3 1079 #### [facility] [address] [facility], [place] [address], [facility] Nucleated RBC/100 WBC (Bld) [Ratio] 0 % Normal 0-0 [facility] Comment on above: Order Comment: No: D o not add to previous draw Performed By: #### 3 1079 #### [facility] [address] [place] [address], [facility] PLAT CNT 227 10*3/uL Normal 150-400 [facility] Comment on above: Order Comment: No: D o not add to previous draw Performed By: #### 3 1079 #### [facility] [address] [place] [address], [place] RBC (Bld) [#/Vol] 4.01 10*6/uL Normal 3.80-5.00 [facility] Comment on above: Order Comment: No: D o not add to previous draw Performed By: #### 3 1079 #### [facility] [address] [place] [address], [facility] WBC (Bld) [#/Vol] 5.58 10*3/uL Normal 4.00-10.60 [facility] Comment on above: Order Comment: No: D o not add to previous draw Performed By: #### 3 1079 #### [facility] [address] [place] [address], [facility] POC GLUCOSE LABon 04-02-2019 Glucose [Mass/Vol] 135 mg/dL High 70-100 [facility] Comment on above: Performed By: #### 3 1079 #### [facility] [address] [place] [address], [place] Glucose [Mass/Vol] 124 mg/dL High 70-100 [facility] Comment on above: Performed By: #### 3 1079 #### [facility] [address] [place] [address], [place] URINALYSIS REFLEXon 04-02-20 19 AMORPHOUS FEW Abnormal NONE SEEN [facility] Comment on above: Order Comment: No: D o not add to previous draw Performed By: #### 3 1079 #### [facility] [address] [place] [address], [place] Appearance (U) SL CLOUDY Abnormal CLEAR [facility] Comment on above: Order Comment: No: D o not add to previous draw Performed By: #### 3 1079 #### [facility] [address] [place] [address], [place] Bilirubin [Mass/Vol] Negative Normal NEGATIVE [facility] Comment on above: Order Comment: No: D o not add to previous draw Performed By: #### 3 1079 #### [facility] [address] [place] [address], [place] BLOOD LARGE Abnormal NEGATIVE [facility] Comment on above: Order Comment: No: D o not add to previous draw Performed By: #### 3 1079 #### [facility] [address] [place] [address], [place] Color (U) YELLOW Normal YELLOW [facility] Comment on above: Order Comment: No: D o not add to previous draw Performed By: #### 3 1079 #### [facility] [address] [place] [address], [place] EPIS MANY Abnormal FEW,OCC,NONE SEEN [facility] Comment on above: Order Comment: No: D o not add to previous draw Performed By: #### 3 1079 #### [facility] [address] [place] [address], [place] Glucose [Mass/Vol] Negative Normal NEGATIVE [facility] Comment on above: Order Comment: No: D o not add to previous draw Performed By: #### 3 1079 #### [facility] [address] [place] [address], [place] KETONE Negative Normal NEGATIVE [facility] Comment on above: Order Comment: No: D o not add to previous draw Performed By: #### 3 1079 #### [facility] [address] [place] [address], [place] LEUK TITI Negative Normal NEGATIVE [facility] Comment on above: Order Comment: No: D o not add to previous draw Performed By: #### 3 1079 #### [facility] [address] [place] [address], [facility] MUCUS THREADS FEW Abnormal NONE SEEN [facility] Comment on above: Order Comment: No: D o not add to previous draw Performed By: #### 3 1079 #### [facility] [address] [place] [address], [facility] Nitrite Ql (U) Negative Normal NEGATIVE [facility] Comment on above: Order Comment: No: D o not add to previous draw Performed By: #### 3 1079 #### [facility] [address] [place] [address], [facility] pH (Bld) 7.0 Normal 5.0-8.0 [facility] Comment on above: Order Comment: No: D o not add to previous draw Performed By: #### 3 1079 #### [facility] [address] [place] [address], [facility] Protein (U) [Mass/Vol] Negative Normal NEGATIVE Th e [facility] Comment on above: Order Comment: No: D o not add to previous draw Performed By: #### 3 1079 #### [facility] [address] [place] [address], [facility] RBC (U) [#/Vol] 0-2 Abnormal NONE SEEN [facility] Comment on above: Order Comment: No: D o not add to previous draw Performed By: #### 3 1079 #### [facility] [address] [facility] [place] [address], [facility] SPEC GRAV 1.017 Normal 1.015-1.020 [facility] Comment on above: Order Comment: No: D o not add to previous draw Performed By: #### 3 1079 #### [facility] [address] [place] [address], [facility] UA COMMENT 2 UROBILINOGEN (E.U./DL) 4.0 Normal [facility] Comment on above: Order Comment: No: D o not add to previous draw Performed By: #### 3 1079 #### [facility] [address] [place] [address], [facility] WBC UA 0-2 Abnormal NONE SEEN [facility] Comment on above: Order Comment: No: D o not add to previous draw Performed By: #### 3 1079 #### [facility] [address] [place] [address], [place] BASIC METABOLIC PANELon 08-0 -2018 Calcium [Mass/Vol] 8.6 mg/dL Normal 8.6-10.3 [facility] Comment on above: Order Comment: No: D o not add to previous draw Performed By: #### 4 1000, 81535, 89468 #### [facility] [address] [place] [address], [place] Chloride [Moles/Vol] 107 mmol/L Normal 98-107 [facility] Comment on above: Order Comment: No: D o not add to previous draw Performed By: #### 4 1000, 98236, 74464 #### [facility] [address] [place] [address], [place] CO2 [Moles/Vol] 24 mmol/L Normal 21-31 [facility] Comment on above: Order Comment: No: D o not add to previous draw Performed By: #### 4 1000, 89332, 36945 #### [facility] [address] [place] [address], [place] Creatinine [Mass/Vol] 0.50 mg/dL Low 0.60-1.20 [facility] Comment on above: Order Comment: No: D o not add to previous draw Performed By: #### 4 1000, 22277, 03120 #### [facility] [address] [place] [address], [place] GFR/1.73 sq M predicted among blacks MDRD (S/P/Bld) [Vol rate/Area] mL/min/{1.73_m2} Normal >60 [facility] Comment on above: Order Comment: No: D o not add to previous draw Performed By: #### 4 1000, , 53294 #### [facility] [address] [place] [address], [place] GFR/1.73 sq M predicted among non-blacks MDRD (S/P/Bld) [Vol rate/Area] mL/min/{1.73_m2} Normal >60 [facility] Comment on above: Order Comment: No: D o not add to previous draw Performed By: #### 4 1000, , 61621 #### [facility] [address] [place] [address], [place] Glucose [Mass/Vol] 106 mg/dL High 70-100 [facility] Comment on above: Order Comment: No: D o not add to previous draw Performed By: #### 4 1000, , 63588 #### [facility] [address] [place] [address], [place] Potassium [Moles/Vol] 3.3 mmol/L Low 3.5-5.1 [facility] Comment on above: Order Comment: No: D o not add to previous draw Performed By: #### 4 1000, , 56500 #### [facility] [address] [place] [address], [place] Sodium [Moles/Vol] 139 mmol/L Normal 136-145 [facility] Comment on above: Order Comment: No: D o not add to previous draw Performed By: #### 4 1000, , 16631 #### [facility] [address] [place] [address], [place] Urea nitrogen [Mass/Vol] 11 mg/dL Normal 7-25 [facility] Comment on above: Order Comment: No: D o not add to previous draw Performed By: #### 4 1000, , 35464 #### [facility] [address] [place] [address], [place] CBC COMPLETE BLOOD COUNTon 0 04-01-2019 Erythrocyte distribution width (RBC) [Ratio] 13.5 % Normal 11.5-15.0 [facility] Comment on above: Order Comment: No: D o not add to previous draw Performed By: #### 5 607, 91462 #### [facility] [address] [place] [id number], [facility] Hematocrit (Bld) [Volume fraction] 36.7 % Normal 36.0-45.0 [facility] Comment on above: Order Comment: No: D o not add to previous draw Performed By: #### 5 607, 32574 #### [facility] [address] [place] [address], [facility] Hemoglobin (Bld) [Mass/Vol] 11.9 g/dL Low 12.0-15.0 [facility] Comment on above: Order Comment: No: D o not add to previous draw Performed By: #### 5 607, 27300 #### [facility] [address] [place] [address], [facility] MCH (RBC) [Entitic mass] 29.0 pg Normal 27.0-33.0 [facility] Comment on above: Order Comment: No: D o not add to previous draw Performed By: #### 5 607, 67932 #### [facility] [address] [place] [address], [facility] MCHC (RBC) [Mass/Vol] 32.4 g/dL Normal 32.0-35.0 [facility] Comment on above: Order Comment: No: D o not add to previous draw Performed By: #### 5 607, 53514 #### [facility] [address] [place] [address], [facility] MCV (RBC) [Entitic vol] 89.5 fL Normal 82.0-98.0 [facility] Comment on above: Order Comment: No: D o not add to previous draw Performed By: #### 5 0608, 04464 #### [facility] [address] [place] [address], [facility] Nucleated RBC/100 WBC (Bld) [Ratio] 0 % Normal 0-0 [facility] Comment on above: Order Comment: No: D o not add to previous draw Performed By: #### 5 0608, 48519 #### [facility] [address] [place] [address], [facility] PLAT CNT 226 10*3/uL Normal 150-400 [facility] Comment on above: Order Comment: No: D o not add to previous draw Performed By: #### 5 0608, 78044 #### [facility] [address] [place] [address], [facility] RBC (Bld) [#/Vol] 4.10 10*6/uL Normal 3.80-5.00 [facility] Comment on above: Order Comment: No: D o not add to previous draw Performed By: #### 5 0608, 59723 #### [facility] [address] [place] [id number], [facility] WBC (Bld) [#/Vol] 7.18 10*3/uL Normal 4.00-10.60 [facility] Comment on above: Order Comment: No: D o not add to previous draw Performed By: #### 5 0608, 05466 #### [facility] [address] [place] [address], [facility] CRP HIGH SENSITIVITYon 04-01 HIGH SENSITIVITY CRP 4.39 mg/L Normal [facility] Comment on above: Order Comment: No: D o not add to previous draw Result Comment: HIGH SENSITIVITY CRP (hs_CRP) REFERENCE RANGES Less than 1.0 mg/L: lowest tertile, lowest risk 1.0-3.0 mg/L: middle tertile, average risk Greater than 3.0 mg/L: highest tertile, highest risk Performed By: #### 3 1079 #### [facility] [address] [place] [id number] CT BRAIN WO CONTRASTon 04-01 CT BRAIN WO CONTRAST [facility] Department of Radiology [address] [place] [address] Patient Name: APRYL DOWNS : 1980 Sex: F Age: Race: Other Pt. Location: [id number] Patient Status: I Ordered Date: 04/01/2019 3:00:00 [...] findings. Electronically signed by:Alice Coello. Transcribed by: [email or web address], User Resident: RYAN GONZALEZ Electronically Signed by: ALICE COELLO @ 04/02/2019 08:59 AM I personally read this/these film(s) with this resident Normal [facility] Comment on above: Order Comment: No: D o not add to previous draw MAGNESIUM BLOODon 04-01-2019 Magnesium [Mass/Vol] 2.2 mg/dL Normal 1.9-2.7 [facility] Comment on above: Order Comment: No: D o not add to previous draw Performed By: #### 4 1000, 56594, 97268 #### [facility] [address] [place] [address], [facility] PHOSPHORUS BLOODon 9 Phosphate [Mass/Vol] 3.9 mg/dL Normal 2.5-5.0 [facility] Comment on above: Order Comment: No: D o not add to previous draw Performed By: #### 4 1000, 84116, 03880 #### [facility] [address] [place] [address], [facility] POC GLUCOSE LABon 04-01-2019 Glucose [Mass/Vol] 120 mg/dL High 70-100 [facility] Comment on above: Performed By: #### 3 1079 #### [facility] [address] [place] [address], [facility] SEDIMENTATION RATEon 019 SED RATE 23 mm/hr High 0-20 [facility] Comment on above: Order Comment: No: D o not add to previous draw Performed By: #### 5 0608, 77153 #### [id number] [place] [address] CT BRAIN PERFUSION 019 CT BRAIN PERFUSION [facility] Department of Radiology [address] [place] [id number] Patient Name: APRYL DOWNS : 1980 [...] FINDINGS: Please see report for dictation number [id number] CTA neck CTA brain and perfusion were all dictated together Electronically signed by:Etta Cartwright. Transcribed by: [email or web address], User Resident: Electronically Signed by: ETTA CARTWRIGHT @ 04/09/2019 10:35 AM Normal [facility] Comment on above: Order Comment: No: D o not add to previous draw CTA NECKon 03-31-2019 CTA NECK [facility] Department of Radiology [address] [place] [id number] Patient Name: APRYL DOWNS : 1980 [...] abnormality Electronically signed by:Etta Cartwright. Transcribed by: [email or web address], User Resident: Electronically Signed by: ETTA CARTWRIGHT @ 03/31/2019 04:31 PM Normal [facility] Comment on above: Order Comment: Strok e transfer, lt side weakness MRI BRAIN W WO CONTRASTon MRI BRAIN W WO CONTRAST [facility] Department of Radiology [address] [place] [id number] Patient Name: APRYL DOWNS : 1980 Sex: F Age: Race: Other Pt. Location: [id number] Patient Status: I Ordered Date: 03/31/2019 4:10:00 [...] findings. Electronically signed by:Etta Cartwright. Transcribed by: [email or web address], User Resident: VICKIE VUONG Electronically Signed by: ETTA CARTWRIGHT @ 04/01/2019 09:56 AM I personally read this/these film(s) with this resident Normal [facility] Comment on above: Order Comment: R/O C [facility] MRI CERVICAL SPINE W WO CONT [facility] [place] 03-31-2019 MRI CERVICAL SPINE W WO CONTRAST [facility] Department of Radiology [address] [place] [address] Patient Name: APRYL DOWNS : 1980 Sex: F Age: Race: Other Pt. Location: [place] [address] Patient Status: I Ordered Date: 03/31/2019 4:05:00 [...] findings. Electronically signed by:Etta Cartwright. Transcribed by: [email or web address], User Resident: VICKIE VUONG Electronically Signed by: ETTA CARTWRIGHT @ 04/01/2019 09:53 AM I personally read this/these film(s) with this resident Normal [facility] Comment on above: Order Comment: R/O C ord Compression POC GLUCOSE LABon 03-31-2019 Glucose [Mass/Vol] 118 mg/dL High 70-100 [facility] Comment on above: Performed By: #### 8 [id number] #### [facility] [address] [place] [address], [facility] TOX PANEL URINEon 03-31-2019 50 THC Negative Normal NEGATIVE [facility] Comment on above: Order Comment: No: D o not add to previous draw Performed By: #### 3 1079 #### [facility] [address] [place] [address], [facility] BARBITURATES Negative Normal NEGATIVE [facility] Comment on above: Order Comment: No: D o not add to previous draw Performed By: #### 3 1079 #### [facility] [address] [facility], [place] [address], [facility] Benzodiazepines Ql (U) Negative Normal NEGATIVE Th e [facility] Comment on above: Order Comment: No: D o not add to previous draw Performed By: #### 3 1079 #### [facility] [address] [place] [address], [facility] Cocaine Ql (U) Negative Normal NEGATIVE [facility] Comment on above: Order Comment: No: D o not add to previous draw Performed By: #### 3 1079 #### [facility] [address] [place] [address], [place] Methadone Ql (U) Negative Normal NEGATIVE [facility] Comment on above: Order Comment: No: D o not add to previous draw Performed By: #### 3 1079 #### [facility] [address] [place] [address], [facility] MONO AMPHET Negative Normal NEGATIVE The [facility] Comment on above: Order Comment: No: D o not add to previous draw Performed By: #### 3 1079 #### [facility] [address] [place] [address], [facility] Opiates Ql (U) Negative Normal NEGATIVE [facility] Comment on above: Order Comment: No: D o not add to previous draw Performed By: #### 3 1079 #### [facility] [address] [place] [address], [facility] Phencyclidine Ql (U) Negative Normal NEGATIVE [facility] Comment on above: Order Comment: No: D o not add to previous draw Performed By: #### 3 1079 #### [facility] [address] [place] [address], [facility] PROPOXYPHENE Negative Normal NEGATIVE [facility] Comment on above: Order Comment: No: D o not add to previous draw Performed By: #### 3 1079 #### [facility] [address] [place] [address], [place] TRICYCLICS Negative Normal NEGATIVE [facility] Comment on above: Order Comment: No: D o not add to previous draw Performed By: #### 3 1079 #### [facility] [address] [place] [address], [facility] Vital Signs Date Time Vital Sign Value Performing Clinician Facility 02-19-2025 12:12 Body height 162.6 cm Earnest Salomon DPM FACFAS Work Phone: [facility] 02-19-2025 12:12-040 Body mass index (BMI) [Ratio] 32.79 kg/m2 Earnest Salomon DPM FACFAS Work Phone: [facility] 02-19-2025 12:12-0400 Body weight 86.64 kg Earnest Dolce DPM FACFAS Work Phone: [facility] 02-19-2025 12:12-0400 Diastolic blood pressure 77 mm[Hg] Earnest Dolce DPM FACFAS Work Phone: [facility] 02-19-2025 12:12-0400 Heart rate 72 /min Earnest Dolce DPM FACFAS Work Phone: [facility] 02-19-2025 12:12-0400 Systolic blood pressure 129 mm[Hg] Earnest Dolce DPM FACFAS Work Phone: [facility] 01-23-2025 16:00-0400 Body height 162.6 cm Earnest Dolce DPM FACFAS Work Phone: [facility] 01-23-2025 16:00-0400 Body mass index (BMI) [Ratio] 32.61 kg/m2 Earnest Dolce DPM FACFAS Work Phone: [facility] 01-23-2025 16:00-0400 Body weight 86.18 kg Earnest Dolce DPM FACFAS Work Phone: [facility] 01-23-2025 16:00-0400 Diastolic blood pressure 75 mm[Hg] Earnest Dolce DPM FACFAS Work Phone: [facility] 01-23-2025 16:00-0400 Heart rate 71 /min Earnest Dolce DPM FACFAS Work Phone: [facility] 01-23-2025 16:00-0400 Systolic blood pressure 128 mm[Hg] Earnest Dolce DPM FACFAS Work Phone: [facility] 01-15-2025 11:15-0400 Body height 162.6 cm Earnest Dolce DPM FACFAS Work Phone: [facility] 01-15-2025 11:15-0400 Body mass index (BMI) [Ratio] 32.61 kg/m2 Earnest Dolce DPM FACFAS Work Phone: [facility] 01-15-2025 11:15-0400 Body weight 86.18 kg Earnest Dolce DPM FACFAS Work Phone: [facility] 01-15-2025 11:15-0400 Diastolic blood pressure 77 mm[Hg] Earnest Dolce DPM FACFAS Work Phone: [facility] 01-15-2025 11:15-0400 Heart rate 70 /min Earnest Dolce DPM FACFAS Work Phone: [facility] 01-15-2025 11:15-0400 Systolic blood pressure 125 mm[Hg] Earnest Dolce DPM FACFAS Work Phone: [facility] 01-02-2025 12:07-0400 Body height 162.6 cm Earnest Dolce DPM FACFAS Work Phone: [facility] 01-02-2025 12:07-0400 Body mass index (BMI) [Ratio] 32.61 kg/m2 Earnest Dolce DPM FACFAS Work Phone: [facility] 01-02-2025 12:07-0400 Body weight 86.18 kg Earnest Dolce DPM FACFAS Work Phone: [facility] 01-02-2025 12:07-0400 Diastolic blood pressure 75 mm[Hg] Earnest Dolce DPM FACFAS Work Phone: [facility] 01-02-2025 12:07-0400 Heart rate 72 /min Earnest Dolce DPM FACFAS Work Phone: [facility] 01-02-2025 12:07-0400 Systolic blood pressure 124 mm[Hg] Earnest Dolce DPM FACFAS Work Phone: [facility] 12-04-2024 10:43-0400 Body height 162.6 cm Earnest Dolce DPM FACFAS Work Phone: [facility] 12-04-2024 10:43-0400 Body mass index (BMI) [Ratio] 32.61 kg/m2 Earnest Dolce DPM FACFAS Work Phone: [facility] 12-04-2024 10:43-0400 Body weight 86.18 kg Earnest Dolce DPM FACFAS Work Phone: [facility] 12-04-2024 10:43-0400 Diastolic blood pressure 77 mm[Hg] Earnest Salomon DPM FACFAS Work Phone: [facility] 12-04-2024 10:43-0400 Heart rate 74 /min Earnest Salomon DPM FACFAS Work Phone: [facility] 12-04-2024 10:43-0400 Systolic blood pressure 122 mm[Hg] Earnest Salomon DPM FACFAS Work Phone: [facility] 10-04-2024 11:39-0500 Body height 161.29 cm [facility] 10-04-2024 11:39-0500 Body mass index (BMI) [Ratio] 31.8 kg/m2 [facility] 10-04-2024 11:39-0500 Body weight 83 kg [facility] 10-04-2024 11:39-0500 Diastolic blood pressure 84 mm[Hg] [facility] 10-04-2024 11:39-0500 Heart rate 78 /min [facility] 10-04-2024 11:39-0500 Systolic blood pressure 140 mm[Hg] [facility] 09-24-2024 16:01-0500 Body height 162.6 cm Earnest Salomon DPM FACFAS Work Phone: [facility] 09-24-2024 16:01-0500 Body mass index (BMI) [Ratio] 32.61 kg/m2 Earnest Salomon DPM FACFAS Work Phone: [facility] 09-24-2024 16:01-0500 Body weight 86.18 kg Earnest Salomon DPM FACFAS Work Phone: [facility] 09-24-2024 16:01-0500 Diastolic blood pressure 74 mm[Hg] Earnest Salomon DPM FACFAS Work Phone: [facility] 09-24-2024 16:01-0500 Heart rate 74 /min Earnest Salomon DPM FACFAS Work Phone: [facility] 09-24-2024 16:01-0500 Systolic blood pressure 118 mm[Hg] Earnest Sheltonashley DPM FACFAS Work Phone: [facility] 09-10-2024 14:15-0500 Body height 162.6 cm Earnest Sheltonashley DPM FACFAS Work Phone: [facility] 09-10-2024 14:15-0500 Body mass index (BMI) [Ratio] 32.61 kg/m2 Earnest Sheltonashley DPM FACFAS Work Phone: [facility] 09-10-2024 14:15-0500 Body weight 86.18 kg Earnest Sheltonashley DPM FACFAS Work Phone: [facility] 09-10-2024 14:15-0500 Diastolic blood pressure 72 mm[Hg] Earnest Sheltonashley DPM FACFAS Work Phone: [facility] 09-10-2024 14:15-0500 Heart rate 70 /min Earnest Sheltonashley DPM FACFAS Work Phone: [facility] 09-10-2024 14:15-0500 Systolic blood pressure 115 mm[Hg] Earnest Sheltonashley DPM FACFAS Work Phone: [facility] 06-14-2024 13:32-0400 Body height 161.29 cm [facility] 06-14-2024 13:32-0400 Body mass index (BMI) [Ratio] 34.7 kg/m2 [facility] 06-14-2024 13:32-0400 Body weight 90.26 kg [facility] 06-14-2024 13:32-0400 Diastolic blood pressure 97 mm[Hg] [facility] 06-14-2024 13:32-0400 Heart rate 76 /min [facility] 06-14-2024 13:32-0400 Systolic blood pressure 165 mm[Hg] [facility] 03-19-2024 10:53-0400 Body height 161.29 cm [facility] 03-19-2024 10:53-0400 Body mass index (BMI) [Ratio] 34.5 kg/m2 [facility] 03-19-2024 10:53-0400 Body weight 89.81 kg [facility] 06-14-2023 10:30-0400 Body height 161.29 cm Amanda Villafana Other [facility] [employer] Other 06-14-2023 10:30-0400 Body mass index (BMI) [Ratio] 33.13 kg/m2 Amanda Villafana Other [facility] [employer] Other 06-14-2023 10:30-0400 Body weight 86.18 kg Amanda Villafana Other [facility] [employer] Other 06-14-2023 10:30-0400 Diastolic blood pressure 84 mm[Hg] Amanda Villafana Other [facility] [employer] Other 06-14-2023 10:30-0400 Systolic blood pressure 129 mm[Hg] Amanda Villafana Other [facility] [employer] Other 02-04-2022 21:00-0400 Diastolic blood pressure 95 mm[Hg] Pete Joel [facility] 02-04-2022 21:00-0400 Heart rate 78 /min Pete Joel [facility] 02-04-2022 21:00-0400 Hourly Rounding Pete Joel [facility] 02-04-2022 21:00-0400 Mean blood pressure 126 mm[Hg] Pete Joel [facility] 02-04-2022 21:00-0400 Promise to Return Pete Joel [facility] 02-04-2022 21:00-0400 Respiratory rate 14 /min Pete Joel [facility] 02-04-2022 21:00-0400 SaO2% (BldA) [Mass fraction] 99 % Pete Joel [facility] 02-04-2022 21:00-0400 Systolic blood pressure 189 mm[Hg] Pete Joel [facility] 02-04-2022 20:00-0400 Diastolic blood pressure 94 mm[Hg] Pete Joel [facility] 02-04-2022 20:00-0400 Heart rate 77 /min Pete Joel [facility] 02-04-2022 20:00-0400 Mean blood pressure 125 mm[Hg] Pete Joel [facility] 02-04-2022 20:00-0400 Systolic blood pressure 187 mm[Hg] Pete Joel [facility] 02-04-2022 19:00-0400 Diastolic blood pressure 85 mm[Hg] Pete Joel [facility] 02-04-2022 19:00-0400 Heart rate 74 /min Pete Joel [facility] 02-04-2022 19:00-0400 Mean blood pressure 114 mm[Hg] Pete Joel [facility] 02-04-2022 19:00-0400 Respiratory rate 11 /min Pete Joel [facility] 02-04-2022 19:00-0400 SaO2% (BldA) [Mass fraction] 97 % Pete Joel [facility] 02-04-2022 19:00-0400 Systolic blood pressure 172 mm[Hg] Pete Joel [facility] 02-04-2022 18:22-0400 gluc 146 mg/dL Pete Joel [facility] 02-04-2022 18:22-0400 gluc Pete Joel [facility] 02-04-2022 17:55-0400 Body temperature 98.24 [degF] Pete Maldonado [facility] 02-04-2022 17:55-0400 Heart rate 76 /min Pete Maldonado [facility] 02-04-2022 17:55-0400 Respiratory rate 18 /min Pete Maldonado [facility] Encounters Encounter Date Encounter Type Care Provider Facility Start: 02-19-2025 End: 02-19-2025 Bamboo flowsheet Earnest D Dolce DPM FACFAS Work Phone: [facility] Start: 02-19-2025 End: 02-19-2025 Bamboo flowsheet Earnest D Dolce DPM FACFAS Work Phone: [facility] Start: 02-19-2025 End: 02-19-2025 Patient encounter procedure Earnest D Dolce DPM FACFAS Work Phone: [facility] Comment on above: Hallux valgus of lef t foot (Primary Dx); Left foot pain Start: 02-19-2025 End: 02-19-2025 ambulatory EARNEST D DOLCE Not Available Start: 02-05-2025 End: 02-05-2025 Bamboo flowsheet Earnest D Dolce DPM FACFAS Work Phone: [facility] Start: 02-05-2025 End: 02-05-2025 Bamboo flowsheet Earnest D Dolce DPM FACFAS Work Phone: [facility] Start: 02-05-2025 End: 02-05-2025 ambulatory EARNEST D DOLCE Not Available Start: 02-05-2025 End: 02-05-2025 Patient encounter procedure Earnest D Dolce DPM FACFAS Work Phone: [facility] Comment on above: Hallux valgus of lef t foot (Primary Dx); Left foot pain Start: 01-23-2025 End: 01-23-2025 ambulatory EARNEST D DOLCE Not Available Start: 01-23-2025 End: 01-23-2025 Patient encounter procedure Earnest D Dolce DPM FACFAS Work Phone: [facility] Comment on above: Hallux valgus of lef t foot (Primary Dx); Plantar fasciitis Start: 01-23-2025 End: 01-23-2025 Bamboo flowsheet Earnest D Dolce DPM FACFAS Work Phone: [facility] Start: 01-23-2025 End: 01-23-2025 Bamboo flowsheet Earnest D Dolce DPM FACFAS Work Phone: [facility] Start: 01-21-2025 End: 01-22-2025 Emergency department patient visit Pedro Garcia Yahaira [facility] Start: 01-15-2025 End: 01-15-2025 Bamboo flowsheet Earnest D Dolce DPM FACFAS Work Phone: [facility] Start: 01-15-2025 End: 01-15-2025 Bamboo flowsheet Earnest D Dolce DPM FACFAS Work Phone: [facility] Start: 01-15-2025 End: 01-15-2025 ambulatory EARNEST ALARCONCE Not Available Start: 01-15-2025 End: 01-15-2025 Patient encounter procedure Earnest D Dolce DPM FACFAS Work Phone: [facility] Comment on above: Hallux valgus of lef t foot (Primary Dx); Left foot pain; Plantar fasciitis Start: 01-02-2025 End: 01-02-2025 Bamboo flowsheet Earnest [...] Not Available Start: 10-04-2024 End: 10-04-2024 ambulatory [facility] Work Phone: Start: 10-04-2024 End: 10-04-2024 Patient encounter procedure [facility] Physician [facility] Work Phone: Start: 09-24-2024 End: 09-24-2024 ambulatory [...] lower extremity Start: 07-06-2024 Non-patient / Non-visit [facility] Physician [facility] Work Phone: Start: 06-14-2024 End: 06-14-2024 ambulatory [facility] Work Phone: Start: 06-14-2024 End: 06-14-2024 Patient encounter procedure [facility] Work Phone: Start: 03-19-2024 End: 03-19-2024 ambulatory [facility] Work Phone: Start: 03-19-2024 End: 03-19-2024 Patient encounter procedure [facility] Work Phone: Start: 03-14-2024 Non-patient / Non-visit [facility] Physician [facility] Work Phone: Start: 01-09-2024 ambulatory [facility] Start: 09-26-2023 End: 09-26-2023 ambulatory Amanda Khalida Other [employer] Other Start: 09-26-2023 Telephone encounter Amanda Khalida [facility] Start: 08-04-2023 End: 08-04-2023 ambulatory Amanda Khalida Other [employer] Other Start: 08-04-2023 Telephone encounter Amanda Khalida [facility] Start: 07-05-2023 End: 07-05-2023 ambulatory Amanda Khalida Other [employer] Other Start: 07-05-2023 Telephone encounter Amanda Khalida [facility] Start: 06-28-2023 End: 06-28-2023 ambulatory Amanda Khalida Other [employer] Other Start: 06-28-2023 Telephone encounter Amanda Khalida [facility] Start: 06-27-2023 End: 06-27-2023 ambulatory Amanda Khalida Other [employer] Other Start: 06-27-2023 Telephone encounter Amanda Villafana [facility] Start: 06-23-2023 End: 06-23-2023 ambulatory Amanda Khalida Other [employer] Other Start: 06-23-2023 Telephone encounter Amanda Khalida [facility] Start: 06-14-2023 End: 06-14-2023 ambulatory Amanda Khalida Other [employer] Other Start: 06-14-2023 Office outpatient vi sit 15 minutes Amanda Khalida [facility] Start: 05-31-2023 End: 05-31-2023 ambulatory Amanda Villafana Other [employer] Other Start: 05-31-2023 Telephone encounter Amanda Khalida [facility] Start: 03-08-2023 End: 03-08-2023 Patient encounter procedure SAMANTA Ara SOLIMANHHOLZ [facility] Start: 12-13-2022 End: 12-22-2022 Pre-admission assessment SAMANTA J AICHHOLZ [facility] Start: 12-12-2022 End: 12-12-2022 ambulatory 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 ASSISTANT SAMANTA AICHHOLZ Facility:[facility] Start: 11-29-2022 End: 11-30-2022 ambulatory SPEECH ASSISTANT SAMANTA AICHHOLZ Facility:[facility] Start: 10-13-2022 ambulatory SPEECH ASSISTANT SAMANTA AICHHOLZ Facil ity:[facility] Start: 09-14-2022 End: 09-15-2022 ambulatory SPEECH ASSISTANT SAMANTA AICHHOLZ Facility:[facility] Start: 06-09-2022 End: 06-10-2022 ambulatory SPEECH ASSISTANT SAMANTA AICHHOLZ Facility:[facility] Start: 05-06-2022 End: 05-26-2022 Pre-admission assessment SAMANTA J AICHHOLZ [facility] Start: 02-15-2022 End: 02-16-2022 ambulatory SPEECH ASSISTANT SAMANTA AICHHOLZ Facility:[facility] Start: 02-04-2022 End: 02-04-2022 Emergency department patient visit Pete Maldonado [facility] Start: 12-31-2021 End: 12-31-2021 ambulatory SPEECH ASSISTANT SAMANTA AICHHOLZ Facility:[facility] Start: 03-31-2019 End: 04-02-2019 Evaluation and management of inpatient PROVIDER UNKNOWN Facility:[facility] Procedures Date Procedure Procedure Detail Performing Clinician Start: 02-19-2025 Radex foot complete minimum 3 views Earnest D Dolce DPM [facility] Work Phone: Start: 02-05-2025 Radex foot complete minimum 3 views Earnest D Dolce DPM [facility] Work Phone: Start: 01-15-2025 Radex foot complete minimum 3 views Earnest D Dolce DPM [facility]AC[facility]AS Work Phone: Start: 01-02-2025 XR FOOT LT MIN 3V [...] Work Phone: section Pete Maldonado section Pete Joel section Pedro lui Endometrial ablation Pedro Syed H/O: tubal ligation Pete Enrique sigala Plan of Treatment Date Care Activity Detail Author Start: 02-19-2025 End: 02-19-2025 Patient encounter procedure [facility] Comment on above: Arrived Start: 02-05-2025 End: 02-05-2025 Patient encounter procedure 02/05/2025 11:40 AM EDT Office Visit [facility] [address] [place] [id number] Dolce, Earnest D, DPM [facility]AS [address] [place] [address] [facility] Start: 01-23-2025 End: 01-23-2025 Patient encounter procedure 01/23/2025 3:30 PM EDT Office Visit [facility] [address] [place] [address] Earnest Salomon, DPM FACFAS [address] [place] [address] [facility] Start: 01-15-2025 End: 01-15-2025 Patient encounter procedure 01/15/2025 10:30 AM EDT Office Visit [facility] [address] [place] [address] Earnest Salomon, DPM FACFAS [address] [place] [address] [facility] Start: 01-02-2025 End: 01-02-2025 Patient encounter procedure 01/02/2025 10:40 AM EDT Office Visit [facility] [address] [place] [address] Earnest Salomon, DPM FACFAS [address] [place] [address] [facility] Start: 12-04-2024 End: 12-04-2024 Clinical Support 12/04/2024 9:50 AM EDT Clinical Support [facility] [address] [place] [address] Earnest Salomon, DPM FACFAS [address] [place] [address] Arrived [facility] Comment on above: Arrived Start: 10-15-2024 End: 10-15-2024 Clinical Support 10/15/2024 3:00 PM EST Clinical Support [facility] [address] [place] [address] Earnest Salomon, DPM FACFAS [address] [place] [address] [facility] Start: 04-29-2024 Influenza vaccination Influenza Vacc ine (#1) [facility] Start: 2018 Screening for malign ant neoplasm of breast Mammogram [facility] Start: 10-27-2016 Screening for malign ant neoplasm of cervix [facility] Start: 1997 Urine screening for protein Diabetes: Urine Protein Screening [facility] Start: 1988 Glaucoma screening Diabetes: R etinopathy Screening [facility] Start: 1978 Hemoglobin A1c measurement Diabetes: Hemoglobin A1C [facility] Start: 1978 Screening for malign ant neoplasm of colon [facility] XR Foot - left 3 Views XR foot 3 + views left Imaging Routine Hallux valgus of left foot Ordered: 01/02/2025 [facility] Work Phone: Comment on above: Ordered: 01/02/2025 XR Foot - left GE 3 Views [facility] Immunizations Immunization Date Immunization Notes Care Provider Fa cata NEGATED: Highlighted row has not occurred!08-15-2023 influenza virus vaccine, unspecified formulation Alethagayle mimi [facility] [place] Payers Date Payer Category Payer Medicaid [id number] 2022 Private Health Insurance [facility] [employer] [id number] 1978 Unknown [id number] 2.16.840.1.843313.3.579.2. 647 1978 Unknown [id number] 2.16.840.1.606986.3.579.2. 593 1978 Unknown [id number] 2.16.840.1.253883.3.579.2. 593 1978 Unknown [id number] 2.16.840.1.360775.3.579.2. 593 1978 Unknown [id number] 2.16.840.1.187186.3.579.2. 593 1978 Unknown [id number] 2.16.840.1.222085.3.579.2. 593 1978 Unknown [id number] 2.16.840.1.638523.3.579.2. 593 1978 Unknown [id number] 2.16.840.1.895621.3.579.2. 593 1978 Unknown [id number] 2.16.840.1.834634.3.579.2. 727 1978 Unknown [id number] 2.16.840.1.927168.3.579.2. 1259 1978 Unknown [id number] 2.16.840.1.788470.3.579.2. 1259 1978 Unknown [id number] 2.16.840.1.522605.3.579.2. 1259 1978 Unknown [id number] 2.16.840.1.119283.3.579.2. 1259 1978 Unknown [id number] 2.16.840.1.808956.3.579.2. 1259 1978 Unknown [id number] 2.16.840.1.392975.3.579.2. 1259 1978 Unknown [id number] 2.16.840.1.869576.3.579.2. 9 1978 Unknown [id number] 2.16.840.1.080561.3.579.2. 9 1978 Unknown [id number] 2.16.840.1.375517.3.579.2. 9 1978 Unknown [id number] 2.16.840.1.837812.3.579.2. 9 1978 Unknown [id number] 2.16.840.1.963449.3.579.2. 9 1978 Unknown [id number] 2.16.840.1.429391.3.579.2. 1259 1959 Unknown [id number] 1959 Unknown [id number] Unknown [facility] [id number] Social History Date Type Detail Facility Tobacco Unknown if ever smoked [facility] Comment on above: denies Start: 09-10-2024 End: 02-19-2025 Sex Assigned At Female [place] [facility] Tobacco smoking status [facility] Start: 06-14-2023 End: 01-21-2025 Tobacco smoking status MNIS Ex-smoker (finding) [facility] Start: 1978 Sex Assigned At Female [facility] Start: 1978 Sex assigned at Not on file [facility] Start: 09-10-2024 Tobacco smoking stat us MNIS Never smoked tobacco [facility] Work Phone: Start: 09-10-2024 Tobacco use and exposure Smokeless tobacco non-user [facility] Start: 09-10-2024 End: 02-19-2025 Alcoholic beverage intake Defer [facility] Start: 09-10-2024 End: 02-19-2025 History of Social function [facility] Start: 12-10-2009 End: 02-06-2025 Sex Female (finding) [facility] Clinical Notes 11-07-2020 to 02-19-2025 Earnest Salomon DPM [facility] - 02/19/2025 11:50 AM EDTMarc Michel Salomon, MANUEL [facility]AS - 02/05/2025 11:40 AM EDTMarc Michel Salomon, MANUEL F[facility]AS - 01/23/2025 3:30 PM EDT Note Date & Type Note Facility 02-19-2025 History of Presen t illness Narrative Images [...] Ambulatory Problems Diagnosis Date Noted Engages in bahai activities 10/02/2020 Endogenous hyperlipemia 10/02/2020 Heart murmur 10/02/2020 History of section 09/19/2020 Hypothyroidism 10/02/2020 Iron deficiency anemia due to chronic blood loss 09/09/2020 (spontaneous vaginal delivery) ([facility] 09/19/2020 Systolic murmur 10/02/2020 Resolved Ambulatory Problems [...] < 3 seconds Digits 1-5 bilateral NEURO: Davis Lupe 5.07 monofilament was intact B/L. Vibratory sensation was intact B/L Musculoskeletal: Muscle strength was +5 over 5 all intrinsic and extrinsic muscles tested. Negative Homans test noted Surgical site evaluation: The incision site is healing well without signs infection. Minimal swelling noted. Consistent with the patient's level of surgery consistent with time frame postoperatively. Excellent range of motion of the great toe [...] Patient is doing very well educated on exwkt-jk-mleqyf exercises due with a surgical boot for 2 more weeks she is progressing well I did dispensed Tubigrip to her today she is to elevate and ice follow up with me in 2 weeks for reassessment. MANUEL Wasserman documented in this encounter [facility] 02-05-2025 History of Presen t illness Narrative Images from the original note were not included. Patient: Apryl Downs : 1980 PCP: Amanda Villafana MD SUBJECTIVE This is a 44 y.o. female that presents today The patient is here status post Trell bunionectomy left foot endoscopic plantar fasciotomy left foot procedure. Postop week 4. They deny fevers, chills, nausea, vomiting, calf pain and shortness of breath. Pain level is being managed with ice elevation and pain medication. They have been relatively compliant with her postoperative care. Doing well no pain Allergies: Allergies Allergen Reactions Oxycodone-Acetaminophen Rash Has tolerated norco in the past Past Medical History: Active Ambulatory Problems Diagnosis Date Noted Engages in bahai activities 10/02/2020 Endogenous hyperlipemia (CMS/HCC) 10/02/2020 Heart murmur 10/02/2020 History of section 09/19/2020 Hypothyroidism (CMS/HCC) 10/02/2020 Iron deficiency anemia due to chronic blood loss 09/09/2020 (spontaneous vaginal delivery) 09/19/2020 Systolic murmur 10/02/2020 Resolved Ambulatory Problems [...] < 3 seconds Digits 1-5 bilateral NEURO: Davis Lupe 5.07 monofilament was intact B/L. Vibratory sensation was intact B/L Musculoskeletal: Muscle strength was +5 over 5 all intrinsic and extrinsic muscles tested. Negative Homans test noted Surgical site evaluation: The incision site is healing well without signs infection. Minimal swelling noted. Consistent with the patient's level of surgery consistent with time frame postoperatively. Excellent range of motion of the great toe joint is in good position and alignment. No pain with direct palpation of the medial band of the plantar fascia much improved Three views were taken today AP/MO/LAT foot: No fractures or dislocations seen excellent position alignment of the great toe joint fixation intact left foot ASSESSMENT 1. Hallux valgus of left foot 2. Left foot pain PLAN Patient is doing very well educated on jjvnx-sk-tkzsvi exercises due with a surgical boot for 2 more weeks she is progressing well I did dispensed Tubigrip to her today she is to elevate and ice follow up with me in 2 weeks for reassessment MANUEL Wasserman documented in this encounter [facility] 01-23-2025 History of Presen t illness Narrative Images from the original note were not included. Patient: Apryl Downs : 1980 PCP: Amanda Villafana MD SUBJECTIVE This is a 44 y.o. female that presents today The patient is here status post Trell bunionectomy left foot endoscopic plantar fasciotomy left foot procedure. Postop week 2. They deny fevers, chills, nausea, vomiting, calf pain and shortness of breath. Pain level is being managed with ice elevation and pain medication. They have been relatively compliant with her postoperative care. Allergies: Allergies Allergen Reactions Oxycodone-Acetaminophen Rash Has tolerated norco in the past Past Medical History: Active Ambulatory Problems Diagnosis Date Noted Engages in bahai activities 10/02/2020 Endogenous hyperlipemia (CMS/HCC) 10/02/2020 Heart murmur 10/02/2020 History of section 09/19/2020 Hypothyroidism (CMS/HCC) 10/02/2020 Iron deficiency anemia due to chronic blood loss 09/09/2020 (spontaneous vaginal delivery) 09/19/2020 Systolic murmur 10/02/2020 Resolved Ambulatory Problems Diagnosis Date Noted No Resolved Ambulatory Problems Past Medical History: Diagnosis Date Breast cancer screening by mammogram 01/2018 Medications: Current Outpatient Medications: amitriptyline (Elavil) 50 MG tablet, Take 50 mg by mouth at bedtime. (Patient not taking: Reported on 09/10/2024), Disp: , Rfl: cephalexin (Keflex) 500 MG capsule, Take 1 capsule (500 mg) by mouth in the morning and 1 capsule (500 mg) in the evening and 1 capsule (500 mg) before bedtime. Do all this for 10 days. TAKE 1 PILL P.O. T.I.D. FOR 10 DAYS., Disp: 30 capsule, Rfl: 0 levothyroxine (Synthroid, Levoxyl) 125 MCG tablet, TAKE [...] < 3 seconds Digits 1-5 bilateral NEURO: Davis Lupe 5.07 monofilament was intact B/L. Vibratory sensation was intact B/L Musculoskeletal: Muscle strength was +5 over 5 all intrinsic and extrinsic muscles tested. Negative Homans test noted Surgical site evaluation: The incision site is healing well without signs infection. Minimal swelling noted. Consistent with the patient's level of surgery consistent with time frame postoperatively. Excellent range of motion of the great toe joint is in good position and alignment. Diagnostic ultrasound: ASSESSMENT 1. Hallux valgus of left foot 2. Plantar fasciitis PLAN Patient is doing very well educated on uiskw-qu-hgxrgq exercises I removed the sutures today see continue with a pneumatic walking boot follow up with me in 2 weeks for x-rays dressing very well MANUEL Wasserman documented in this encounter [facility] 01-22-2025 Hospital Discharg e instructions Patient Education 01/22/2025 00:38:41 Migraine Headache, Ympk-bd-Ogwh Migraine Headache A migraine headache is a very strong throbbing pain on one or both sides of your head. This type of headache can also cause other symptoms. It can last from 4 hours to 3 days. Talk with your doctor about what things may bring on (trigger) this condition. What are the causes? The exact cause of a migraine is not known. This condition may be brought on or caused by: Smoking. Medicines, such as: ?Medicine used to treat chest pain (nitroglycerin). ? control pills. ?Estrogen. ?Some blood pressure medicines. Certain substances in some foods or drinks. Foods and drinks, such as: ?Cheese. ?Chocolate. ?Alcohol. ?Caffeine. Doing physical activity that is very hard. Other things that may trigger a migraine headache include: Periods. . Hunger. Stress. Getting too much or too little sleep. Weather changes. Feeling tired (fatigue). What increases the risk? Being [age] years old. Being female. Having a family history of migraine headaches. Being . Having a mental health condition, such as being sad (depressed) or feeling worried or nervous (anxious). Being very overweight (obese). What are the signs or symptoms? A throbbing pain. This pain may: ?Happen in any area of the head, such as on one or both sides. ?Make it hard to do daily activities. ?Get worse with physical activity. ?Get worse around bright lights, loud noises, or smells. Other symptoms may include: ?Feeling like you may vomit (nauseous). ?Vomiting. ?Dizziness. Before a migraine headache starts, you may get warning signs (an aura). An aura may include: ?Seeing flashing lights or having blind spots. ?Seeing bright spots, halos, or zigzag lines. ?Having tunnel vision or blurred vision. ?Having numbness or a tingling feeling. ?Having trouble talking. ?Having weak muscles. After a migraine ends, you may have symptoms. These may include: ?Tiredness. ?Trouble thinking (concentrating). How is this treated? Taking medicines that: ?Relieve pain. ?Relieve the feeling like you may vomit. ?Prevent migraine headaches. Treatment may also include: ?Acupuncture. ?Lifestyle changes like avoiding foods that bring on migraine headaches. ?Learning ways to control your body functions (biofeedback). ?Therapy to help you know and deal with negative thoughts (cognitive behavioral therapy). Follow these instructions at home: Medicines Take xhmz-qfp-wtfwlmg and prescription medicines only as told by your doctor. If told, take steps to prevent problems with pooping (constipation). You may need to: ?Drink enough fluid to keep your pee (urine) pale yellow. ?Take medicines. You will be told what medicines to take. ?Eat foods that are high in fiber. These include beans, whole grains, and fresh fruits and vegetables. ?Limit foods that are high in fat and sugar. These include fried or sweet foods. Ask your doctor if you should avoid driving or using machines while you are taking your medicine. Lifestyle Do not drink alcohol. Do not smoke or use any products that contain nicotine or tobacco. If you need help quitting, ask your doctor. Get 7 9 hours of sleep each night, or the amount recommended by your doctor. Find ways to deal with stress, such as meditation, deep breathing, or yoga. Try to exercise often. This can help lessen how bad and how often your migraines happen. General instructions Keep a journal to find out what may bring on your migraine headaches. This can help you avoid those things. For example, write down: ?What you eat and drink. ?How much sleep you get. ?Any change to your medicines or diet. If you have a migraine headache: ?Avoid things that make your symptoms worse, such as bright lights. ?Lie down in a dark, quiet room. ?Do not drive or use machinery. ?Ask your doctor what activities are safe for you. Where to find more information Coalition for Headache and Migraine Patients (CHAMP): headachemigraine.org [place] Migraine Foundation: americanmigrainefoundation.org National Headache Foundation: headaches.org Contact a doctor if: You get a migraine headache that is different or worse than others you have had. You have more than 15 days of headaches in one month. Get help right away if: Your migraine headache gets very bad. Your migraine headache lasts more than 72 hours. You have a fever or stiff neck. You have trouble seeing. Your muscles feel weak or like you cannot control them. You lose your balance a lot. You have trouble walking. You faint. You have a seizure. This information is not intended to replace advice given to you by your health care provider. Make sure you discuss any questions you have with your health care provider. Document Revised: 04/11/2023 Document Reviewed: 04/11/2023 [employer] Patient Education 2023 [employer]. Follow Up Care 01/21/2025 22:31:46 With:Brigido Fisher [address]: [address] [place] [address] Business (1) When:01/25/2025 Comments:You can use the Zofran every 6 hours as needed for nausea and vomiting. Please follow-up with your primary care doctor and neurology for further evaluation management of your symptoms. Please return to the ED for any new or worsening symptoms. With:AMANDA VILLAFANA Address: [facility] [place] [address] Business (1) When:Within 3 Day(s) [facility] 01-22-2025 Note ED Patient Education Note Neurology Migraine Headache A migraine headache is a very strong throbbing pain on one or both sides of your head. This type of headache can also cause other symptoms. It can last from 4 hours to 3 days. Talk with your doctor about what things may bring on (trigger) this condition. What are the causes? The exact cause of a migraine is not known. This condition may be brought on or caused by: ??? Smoking. ??? Medicines, such as: ? Medicine used to treat chest pain (nitroglycerin). ? control pills. ? Estrogen. ? Some blood pressure medicines. ??? Certain substances in some foods or drinks. ??? Foods and drinks, such as: ? Cheese. ? Chocolate. ? Alcohol. ? Caffeine. ??? Doing physical activity that is very hard. Other things that may trigger a migraine headache include: ??? Periods. ??? . ??? Hunger. ??? Stress. ??? Getting too much or too little sleep. ??? Weather changes. ??? Feeling tired (fatigue). What increases the risk? Being 25?55 years old. ??? Being female. ??? Having a family history of migraine headaches. ??? Being . ??? Having a mental health condition, such as being sad (depressed) or feeling worried or nervous (anxious). ??? Being very overweight (obese). What are the signs or symptoms? A throbbing pain. This pain may: ? Happen in any area of the head, such as on one or both sides. ? Make it hard to do daily activities. ? Get worse with physical activity. ? Get worse around bright lights, loud noises, or smells. ??? Other symptoms may include: ? Feeling like you may vomit (nauseous). ? Vomiting. ? Dizziness. ??? Before a migraine headache starts, you may get warning signs (an aura). An aura may include: ? Seeing flashing lights or having blind spots. ? Seeing bright spots, halos, or zigzag lines. ? Having tunnel vision or blurred vision. ? Having numbness or a tingling feeling. ? Having trouble talking. ? Having weak muscles. ??? After a migraine ends, you may have symptoms. These may include: ? Tiredness. ? Trouble thinking (concentrating). How is this treated? Taking medicines that: ? Relieve pain. ? Relieve the feeling like you may vomit. ? Prevent migraine headaches. ??? Treatment may also include: ? Acupuncture. ? Lifestyle changes like avoiding foods that bring on migraine headaches. ? Learning ways to control your body functions (biofeedback). ? Therapy to help you know and deal with negative thoughts (cognitive behavioral therapy). Follow these instructions at home: Medicines ??? Take sjur-zrd-qirewdm and prescription medicines only as told by your doctor. ??? If told, take steps to prevent problems with pooping (constipation). You may need to: ? Drink enough fluid to keep your pee (urine) pale yellow. ? Take medicines. You will be told what medicines to take. ? Eat foods that are high in fiber. These include beans, whole grains, and fresh fruits and vegetables. ? Limit foods that are high in fat and sugar. These include fried or sweet foods. Ask your doctor if you should avoid driving or using machines while you are taking your medicine. Lifestyle ??? Do not drink alcohol. ??? Do not smoke or use any products that contain nicotine or tobacco. If you need help quitting, ask your doctor. ??? Get 7?9 hours of sleep each night, or the amount recommended by your doctor. ??? Find ways to deal with stress, such as meditation, deep breathing, or yoga. ??? Try to exercise often. This can help lessen how bad and how often your migraines happen. General instructions ??? Keep a journal to find out what may bring on your migraine headaches. This can help you avoid those things. For example, write down: ? What you eat and drink. ? How much sleep you get. ? Any change to your medicines or diet. ??? If you have a migraine headache: ? Avoid things that make your symptoms worse, such as bright lights. ? Lie down in a dark, quiet room. ? Do not drive or use machinery. ? Ask your doctor what activities are safe for you. Where to find more information ??? Coalition for Headache and Migraine Patients (CHAMP): headachemigraine.org ??? [place] Migraine Foundation: americanmigrainefoundation.org ??? National Headache Foundation: headaches.org Contact a doctor if: ??? You get a migraine headache that is different or worse than others you have had. ??? You have more than 15 days of headaches in one month. Get help right away if: ??? Your migraine headache gets very bad. ??? Your migraine headache lasts more than 72 hours. ??? You have a fever or stiff neck. ??? You have trouble seeing. ??? Your muscles feel weak or like you cannot control them. ??? You lose your balance a lot. ??? You have trouble walking. ??? You faint. ??? You have a seizure. This information is not intended to replace advice given to yo (more content not included)... [facility] 01-21-2025 Evaluation + Plan note Extrac janel from: Title:ED Note Author:Pedro Syed DO Date :01/21/25 Headache, migraine (G43.909: Migraine, unspecified, not intractable, without status migrainosus) Orders: dexamethasone, 10 mg = 1 mL, Injection, IV Push, Once, Stop date 01/21/25 22:58:00 EDT, STAT, Start date 01/21/25 22:58:00 EDT, Administer over no less than one minute, 01/21/25 22:58:00 EDT ketorolac, 30 mg = 1 mL, Injection, IV Push, Once, Stop date 01/21/25 22:57:00 EDT, STAT, Start date 01/21/25 22:57:00 EDT, 01/21/25 22:57:00 EDT magnesium sulfate + Generic Diluent 50 mL, 2 gram = 50 mL, IV Piggyback, Once, Stop date 01/21/25 22:58:00 EDT, STAT, Start date 01/21/25 22:58:00 EDT, 50 mL/hr, Infuse over 1 hour(s), 01/21/25 22:58:00 EDT ondansetron, 4 mg = 2 mL, Injection, IV Push, Once, Stop date 01/21/25 22:58:00 EDT, STAT, Start date 01/21/25 22:58:00 EDT, 01/21/25 22:58:00 EDT ondansetron, 4 mg = 1 tab(s), Oral, q6hr, # 12 tab(s), Refills(s) 0, Pharmacy: [facility]/pharmacy #[id number], 162, cm, 01/21/25 22:41:00 EDT, Height/Length Dosing, 94.6, kg, 01/21/25 22:41:00 EDT, Weight Dosing Sodium Chloride 0.9% intravenous solution 1,000 mL, 1,000 mL, IV, 983.61 mL/hr, for 30 day(s), Stop date 02/20/25 22:57:00 EDT, STAT, Start date 01/21/25 22:58:00 EDT, 61 minute(s), Total volume (mL): 1,000, 94.6 kg, 2.06, m2 [facility] 05-20-2025 History of Present illness Narrative* Earnest Salomon DPM FACFAS - 01/15/2025 10:30 AM EDT Images from the original note were not included. Patient: Apryl Downs : 1980 PCP: Amanda Villafana MD SUBJECTIVE This is a 44 y.o. female that presents today The patient is here status post Trell bunionectomy left foot endoscopic plantar fasciotomy left foot procedure. Postop week 1. They deny fevers, chills, nausea, vomiting, calf pain and shortness of breath. Pain level is being managed with ice elevation and pain medication. They have been relatively compliant with her postoperative care. Allergies: Allergies Allergen Reactions Oxycodone-Acetaminophen Rash Has tolerated norco in the past Past Medical History: Active Ambulatory Problems Diagnosis Date Noted Engages in bahai activities 10/02/2020 Endogenous hyperlipemia (CMS/HCC) 10/02/2020 Heart murmur 10/02/2020 History of section 09/19/2020 Hypothyroidism (CMS/HCC) 10/02/2020 Iron deficiency anemia due to chronic blood loss 09/09/2020 (spontaneous vaginal delivery) 09/19/2020 Systolic murmur 10/02/2020 Resolved Ambulatory Problems Diagnosis Date Noted No Resolved Ambulatory Problems Past Medical History: Diagnosis Date Breast cancer screening by mammogram 01/2018 Medications: Current Outpatient Medications: amitriptyline (Elavil) 50 MG tablet, Take 50 mg by mouth at bedtime. (Patient not taking: Reported on 09/10/2024), Disp: , Rfl: cephalexin (Keflex) 500 MG capsule, Take 1 capsule (500 mg) by mouth in the morning and 1 capsule (500 mg) in the evening and 1 capsule (500 mg) before bedtime. Do all this for 10 days. TAKE 1 PILL P.O. T.I.D. FOR 10 DAYS., Disp: 30 capsule, Rfl: 0 levothyroxine (Synthroid, Levoxyl) 125 MCG tablet, TAKE [...] < 3 seconds Digits 1-5 bilateral NEURO: Davis Lupe 5.07 monofilament was intact B/L. Vibratory sensation was intact B/L Musculoskeletal: Muscle strength was +5 over 5 all intrinsic and extrinsic muscles tested. NegativeHomans test noted Surgical site evaluation: The incision site is healing well without signs infection. Minimal swelling noted. Consistent with the patient's level of surgery consistent with time frame postoperatively.Sutures remain intact without signs of dehiscence. Slight erythema noted dorsally Radiographs: AP/MO/LAT: Three views were taken today AP/MO/LAT foot: No fractures or dislocations seen excellent position alignment of the great toe joint fixation intact Diagnostic ultrasound: ASSESSMENT 1. Hallux valgus of left foot 2. Left foot pain 3. Plantar fasciitis PLAN Today we applied a dry sterile dressing with betadine to the incision site. Covered the incision with 4x4s, Kerlix and Aren bandage. The Patient is to continue ice and elevation on a regular basis. They were reminded to remain compliant with her weight-bearing status in the ambulatory surgical device. I educated the patient the radiographic findings recommended she continue with guhhb-lo-jwddec exercises. I dispensed a Pneumatic walking boot for her to begin ambulation. All started the patient on Keflex 500 mg t.I.d.. For 10 days. Pneumatic Walking Boot ([id number]) was dispensed and applied at this visit. Due to the patient's diagnosis and related symptoms this is medically necessary for treatment. The function of this device is to restrict and limit motion, provide stabilization, immobilization, and compression to the affected area. The goals and function-of this device were explained in detail to the patient. The patient wasshown and told in detail how to properly wear and care for the device. Written instructions and warranty information was given along with the list of the current Durable Medical Equipment Supplier Guidelines. MANUEL Wasserman [id number] History of Present illness Narrative* MANUEL Wasserman - 01/02/2025 11:40 AM EDT Images from the original note [...] hurts when she walks performs activities of dailyliving has progressively worsened over time. Attempted wider [...] 0.55 - 1.02 mg/dL Final [facility] EGFR-AF [place] 01/02/2025 >60 >=60 mL/min/1.73m 2 Final [facility] EGFR-NON AF [place] 01/02/2025 >60 >=60 mL/min/1.73m 2 Final BUN CREATININE RATIO 01/02/2025 19.3 Final CALCIUM 01/02/2025 8.7 8.5 - 10.1 mg/dL Final Clinisync Result Encounter on 01/02/2025 Component Date Value Ref Range Status TB WBC 01/02/2025 7.0 4.0 - 11.0 10 3/uL Final [facility] RBC 01/02/2025 4.39 4.20 - 5.40 10 6/uL Final [facility] HGB 01/02/2025 12.6 12.0 - 16.0 g/dL Final [facility] HCT 01/02/2025 37.9 36.0 - 48.0 % Final [facility] MCV 01/02/2025 86.3 81.0 - 99.0 fL Final [facility] MCH 01/02/2025 28.7 26.7 - 34.0 pg Final TB MCHC 01/02/2025 33.2 29.9 - 35.2 g/dL Final TB RDW 01/02/2025 13.9 11.0 - 15.0 % [...] < 3 seconds Digits 1-5 bilateral NEURO: Davis Lupe 5.07 monofilament was intact B/L. Vibratory sensation was intact B/L Musculoskeletal: Muscle strength was +5 over 5 all intrinsic and extrinsic muscles tested. There isless less pain with direct palpation of the [...] with direct palpation of the medial eminence painwith range of motion of the great toe joint toe is reducible in nature Cardiac: Normal rate and rhythm no murmurs detected Respiratory: Lungs appear to be clear no rhonchi or wheezes noted Radiographs: AP/MO/LAT: X-rays will be taken to [facility] ASSESSMENT 1. Plantar fasciitis 2. Hallux valgus [...] all possible risks and complications. All questions havebeen asked and answered. Awaiting laboratory findings and clinical exam patient was cleared for MACwith popliteal block anesthesia MANUEL Wasserman documented in [facility] encounterTwo [facility] [id number] Telephone encounter Note* Telephone Encounter - MANUEL Wasserman - 12/04/2024 10:40 PM EDT Phone #: [phone] Insurance: Payor: [facility] MEDICAID / Plan: [facility] MEDICAID [place] / Product Type: *No Product type* / Preferred Date/Time: First Available [x] SULEMA [] Patient Name: Apryl Downs : 1980 Surgeon: Dr. Earnest Salomon [x] Dr. Hans Salomon [] [place]: [facility] [x] [facility] [place] [facility] [] Procedure(s): 1. Trell bunionectomy left foot 2. Endoscopic plantar fasciotomy left foot CPT Code(s): 77990. 65077 Diagnosis: ICD-10-CM 1. Plantar fasciitis M72.2 2. [...] Clearance: Cardiology [] Rheumatology [] Other [] [place] [id number] Miscellaneous Notes* Telephone Encounter - MANUEL Wasserman - 12/04/2024 10:40 PM EDT Phone #: [phone] Insurance: Payor: [employer] MEDICAID / Plan: [employer] [place] / Product Type: *No Product type* / Preferred Date/Time: First Available [x] SULEMA [] Patient Name: Apryl Downs : 1980 Surgeon: Dr. Earnest Salomon [x] Dr. Hans Salomon [] Location: [facility] [x] [facility] [facility] [] Procedure(s): 1. Trell bunionectomy left foot 2. Endoscopic plantar fasciotomy left foot CPT Code(s): 99505. 04715 Diagnosis: ICD-10-CM 1. Plantar fasciitis M72.2 2. [...] Rheumatology [] Other [] documented in this encounterTwo Rivers Psychiatric [id number] History of Present illness Narrative* MANUEL Wasserman - 12/04/2024 9:50 AM EDT Images from the original note [...] hurts when she walks performs activities of dailyliving has progressively worsened over time. Attempted wider [...] < 3 seconds Digits 1-5 bilateral NEURO: Davis Lupe 5.07 monofilament was intact B/L. Vibratory sensation was intact B/L Musculoskeletal: Muscle strength was +5 over 5 all intrinsic and extrinsic muscles tested. There isless less pain with direct palpation of the [...] with direct palpation of the medial eminence painwith range of motion of the great toe [...] all possible risks and complications. All questions havebeen asked and answered. MANUEL Wasserman documented in this encounterTwo Rivers Psychiatric [id number] History of Present illness Narrative* MANUEL Wasserman - 09/24/2024 3:40 PM EST Images from the original note were not [...] < 3 seconds Digits 1-5 bilateral NEURO: Davis Lupe 5.07 monofilament was intact B/L. Vibratory sensation was intact B/L Musculoskeletal: Muscle strength was +5 over 5 all intrinsic and extrinsic muscles tested. There isless pain with direct palpation of the medial [...] into the medial and central bands of theplantar fascia. Ultrasound was necessary to ensure exact placement into the medial and central bands of the plantar fascia and avoid injection into the plantar fat pad. Patient was to continue stretching and icing she is improving follow up with me in 2 weeks. MANUEL Wasserman documented in this encounterTwo Rivers Psychiatric [id number] History of Present illness Narrative* MANUEL Wasserman - 09/10/2024 2:00 PM EST Images from the original note were not [...] numerous conservative therapies including: shoe gear modifications, baju-pqf-ogkiwsz anti-inflammatory medications, zobf-utm-ngsxpqa orthotic devices to no avail. They rate the pain scale from 1-10 asan 8 with 10 being the most painful. [...] < 3 seconds Digits 1-5 bilateral NEURO: Davis Lupe 5.07 monofilament was intact B/L. Vibratory sensation was intact B/L Musculoskeletal: Muscle strength was +5 over 5 all intrinsic and extrinsic muscles tested. There issignificant pain with direct palpation of the medial [...] cc of 2% lidocaine plain and 1 ccof Kenalog 10 via ultrasonic guidance into the medial and central bands of the plantar fascia. Ultrasound was necessary to ensure exact placement into the medial and central bands of the plantar fascia and avoid injection into the plantar fat pad. I am also recommending custom molded orthotic devices. Patient was digitally scan today for custom-molded orthotic devices. Care was taken to place thesubtalar joint in neutral position. The patient was informed that the orthotics will take 3 weeks to arrive from the laboratory. A plastic pre-fabricated static Ankle-Foot Orthosis ([id number]) was dispensed and fitted at this visit.The device will be utilized for the next [...] To reduce the pain and symptoms of post- static dyskinesia, 2.) Prevent yul-xcvwtj-cowvqiy contracture of the Achilles tendon. 3.) Provide static stretch of the Achillestendon, 4.) Reduce plantar fasciitis. The patient states that the device is comfortable when applied at this time. The patient was shown and told in detail how to properly wear and care for the device. Written instructions and warranty information were given along with the list of the current Durable Medical Equipment Supplier Guidelines. MANUEL Wasserman documented in this encounterTwo Rivers Psychiatric [id number] Evaluation note* Encounter Date Diagnosis Assessment Notes Treatment Notes Treatment Clinical Notes Aug, Type 2 diabetes mellitus with hyperglycemia, without long-term current use of insulin (ICD-10 - E11.65) [employer] Other 11-07-2023 Evaluation note* Encounter Date Diagnosis Assessment Notes Treatment Notes Treatment Clinical Notes Jun, Other iron deficiency anemia (ICD-10 - D50.8) [employer] Other 10-31-2023 Evaluation note* Encounter Date Diagnosis Assessment Notes Treatment Notes Treatment Clinical Notes May, Type 2 diabetes mellitus with hyperglycemia, without long-term current use of insulin (ICD-10 - E11.65) [employer] Other 10-30-2023 Evaluation note* Encounter Date Diagnosis Assessment Notes Treatment Notes Treatment Clinical Notes May, Type 2 diabetes mellitus with hyperglycemia, without long-term current use of insulin (ICD-10 - E11.65) [employer] Other 10-17-2023 Evaluation note* Encounter Date Diagnosis Assessment Notes Treatment Notes Treatment Clinical Notes May, Other iron deficiency anemia (ICD-10 - D50.8) obtain labs. recheck due to fatigue May, Type 2 diabetes mellitus with hyperglycemia, without long-term current use of insulin (ICD-10 - E11.65) Due for A1C will reach out to [facility] lenora caruso. Presently it is covered, but her glucose of 220 indicates dose increase. Will sent paperwork for PA again. [employer] Other 10-03-2023 Evaluation note* Encounter Date Diagnosis Assessment Notes Treatment Notes Treatment Clinical Notes May, Type 2 diabetes mellitus with hyperglycemia, without long-term current use of insulin (ICD-10 - E11.65) [employer] Other 07-11-2023 Evaluation + Plan note Diagnostic Tests Pending * T3 Free 03/08/23 [facility]06-01-2023 History general Narrative - Reported* Type Description Date Medical History DM Medical History hypothyroid Medical History Anemia Surgical History C SECTION X's 2 Surgical History Left Oophorectomy 01/2023 Hospitalization History SEE ABOVE SURGERY [employer] Other 03-12-2021 NotePatient Outreach ([facility]OV[facility]) APRYL DOWNS ([id number]) 1980 F Date Time Provider Department 11/07/20 [facility] During your visit today, we recorded the following information about you: Allergies As of Date: 11/07/2020 Noted Allergy Reaction OXYCODONE-ACETAMINOPHEN 09/09/2020 2 - Rash Comments: Has tolerated norco in the past Date Reviewed: 10/03/2020 Reviewed by: Bharti Lorenz (Rn) DAWNA Zavala - Fully Assessed Order(s):SARS-COVID VACCINE 1ST DOSE APPT [[id number]] Order #: [id number] FUTURE Prescriptions as of 11/07/2020 Sig: METFORMIN [...] Heart murmur [R01.1] 10/02/2020 More... 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 Encounter Status:Closed by EPIC, PRODUSER on 11/10/20[facility] Evaluation + Plan note No data available for this section [facility] noteNo InformationNoparkland health center [email or web address] Other Evaluation note* Diagnosis Onset Date Resolution Status Iron deficiency anemia acute Left foot pain acute Type 2 diabetes mellitus with hyperglycemia acute [facility] Work Phone: Evaluation note* Diagnosis Onset Date Resolution Status Iron deficiency anemia acute Left foot pain acute Type 2 diabetes mellitus with hyperglycemia acute Type 2 diabetes mellitus with hyperglycemia acute [facility] Work Phone: Evaluation note* Diagnosis Calcaneal spur, left foot- Primary Plantar fasciitis Plantar fascial fibromatosis Gastrocnemius equinus of left lower extremity documented in this encounter [facility]* Diagnosis Gastrocnemius equinus of left lower extremity- Primary Plantar fasciitis Plantar fascial fibromatosis Calcaneal spur, left foot documented in this encounter [facility] HealthcareEvaluation noteNo assessment information [facility] Work Phone: Evaluation note* Diagnosis Plantar fasciitis- Primary Plantar fascial fibromatosis Hallux valgus of left foot [facility] Diagnosis Hallux valgus of left foot- Primary Plantar fasciitis Plantar fascial fibromatosis Gastrocnemius equinus of left lower extremity [facility]* Diagnosis Hallux valgus of left foot- Primary Plantar fasciitis Plantar fascial fibromatosis [facility] Diagnosis Hallux valgus of left foot- Primary Left foot pain Pain in soft tissues of limb Plantar fasciitis Plantar fascial fibromatosis [facility] Diagnosis Hallux valgus of left foot- Primary Plantar fasciitis Plantar fascial fibromatosis [facility] Diagnosis Hallux valgus of left foot- Primary Left foot pain Pain in soft tissues of limb [facility] Diagnosis Hallux valgus of left foot- Primary Left foot pain Pain in soft tissues of limb [facility] Dis[facility] instructions No data available for this section [facility] No data available for this section [facility] Summary Purpose Family History No Family [...] 23 8:35am Hospital Course Note MR#: [id number] [facility] Pt. Name: Apryl Downs Admitted: [...] is a 38-year-old female, who presented to [facility] with complaints of left-sided weakness and facial droop. The patient states she had driven herself to the emergency department. The patient states that she was at work when she st (more content not included)... Note HNO ID: [id number] Author: Anjali Muñoz Service: Gynecology Author Type: Physician Type: Brief Op Note Filed: 10/03/2020 8:14 AM Note Text: BRIEF OPERATIVE / PROCEDURE NOTE LOG ID: [id number] SURGERY/PROCEDURE DATE: 10/03/2020 INCISION/PROCEDURE START TIME: 7:57 AM INCISION CLOSE/PROCEDURE END TIME: 8:07 AM SURGEON(S)/PROCEDURALIST(S) AND MACHINE CLOTH EXAMINER(S): Surgeon(s) and Role: * Ayah Muñoz - [...] the case. Procedure Findings Note HNO ID: [id number] Author: Anjali Muñoz Service: Gynecology Author Type: Physician Type: Brief Op Note Filed: 10/03/2020 8:14 AM Note Text: BRIEF OPERATIVE / PROCEDURE NOTE LOG ID: [id number] SURGERY/PROCEDURE DATE: 10/03/2020 INCISION/PROCEDURE START TIME: 7:57 AM INCISION CLOSE/PROCEDURE END TIME: 8:07 AM SURGEON(S)/PROCEDURALIST(S) AND MACHINE CLOTH EXAMINER(S): Surgeon(s) and Role: * Ayah Muñoz - [...] iron deficienc y anemia (D50.8) Referral Organization [facility] emilee Referring Provider First Name Amanda Referring Provider Last Name Khalida Referring Provider Specialty [facility] Organization [facility] Referred Address [address] [place],[address] Referred Provider Specialty Hematology Referral Priority Routine [...] section and content) DATE CREATED AUTHOR 04/28/2019 [facility] DATE CREATED AUTHOR AUTHOR'S ORGANIZ ATION 10/07/2020 [facility] DATE CREATED AUTHOR AUTHOR'S ORGANIZ ATION 10/07/2020 [facility] DATE CREATED AUTHOR AUTHOR'S ORGANIZ ATION 10/03/2021 [facility] DATE CREATED AUTHOR AUTHOR'S ORGANIZ ATION 12/15/2022 [facility] DATE CREATED AUTHOR AUTHOR'S ORGANIZ ATION 03/21/2024 [facility] DATE CREATED AUTHOR AUTHOR'S ORGANIZ ATION 01/25/2025 [facility] DATE CREATED AUTHOR AUTHOR'S ORGANIZ ATION 02/20/2025 [facility] dical Specialists EPIC (unrecognized sect ion [...] Provider Active St art: March 14, 2024 Mobile Sales Consultant Relationship Specialty Start Date End Date Amanda Villafana MD [address] [place] [address] PCP - General Family Medicine 09/10/24 Samanta Cota NP [address] [place] [address] Nurse Practitioner Family Medicine 03/28/24 Mobile Sales Consultant Relationship Specialty Start Date End Date Amanda Villafana MD [address] [place] [address] PCP - General Family Medicine 09/10/24 Samanta Cota NP [address] [place] [address] Nurse Practitioner Family Medicine 03/28/24 Mobile Sales Consultant Relationship Specialty Start Date End Date Amanda Villafana MD [address] [place] [address] PCP - General Family Medicine 09/10/24 Samanta Cota NP [address] [place] [address] Nurse Practitioner Family Medicine 03/28/24 Mobile Sales Consultant Relationship Specialty Start Date End Date Amanda Villafana MD [address] [place] [address] PCP - General Family Medicine 09/10/24 Samanta Cota NP [address] [place] [address] Nurse Practitioner Family Medicine 03/28/24 Mobile Sales Consultant Relationship Specialty Start Date End Date Amanda Villafana MD [address] [facility] [place] [address] PCP - General Family Medicine 09/10/24 Samanta Cota NP [address] [place] [address] Nurse Practitioner Family Medicine 03/28/24 Mobile Sales Consultant Relationship Specialty Start Date End Date Amanda Villafana MD [address] [facility] [place] [address] PCP - General Family Medicine 09/10/24 Samanta Cota NP [address] [place] [address] Nurse Practitioner Family Medicine 03/28/24 Mobile Sales Consultant Relationship Specialty Start Date End Date Amanda Villafana MD [address] [facility] [place] [address] PCP - General Family Medicine 09/10/24 Samanta Cota NP [address] [place] [address] Nurse Practitioner Family Medicine 03/28/24 Mobile Sales Consultant Relationship Specialty Start Date End Date Amanda Villafana MD [address] [place] [address] PCP - General Family Medicine 09/10/24 Samanta Cota NP [address] [place] [address] Nurse Practitioner Family Medicine 03/28/24 Mobile Sales Consultant Relationship Specialty Start Date End Date Amanda Villafana MD [address] [place] [address] PCP - General Family Medicine 09/10/24 Samanta Cota NP [address] [place] [address] Nurse Practitioner Family Medicine 03/28/24 Mobile Sales Consultant Relationship Specialty Start Date End Date Amanda Villafana MD [address] [place] [address] PCP - General Family Medicine 09/10/24 Samanta Cota NP [address] [place] [address] Nurse Practitioner Family Medicine 03/28/24 Mobile Sales Consultant Relationship Specialty Start Date End Date Amanda Villafana MD [address] [place] [address] PCP - General Family Medicine 09/10/24 Samanta Cota NP [address] [place] [address] Nurse Practitioner Family Medicine 03/28/24 Mobile Sales Consultant Relationship Specialty Start Date End Date Amanda Villafana MD [address] [place] [address] PCP - General Family Medicine 09/10/24 Samanta Cota NP [address] [place] [address] Nurse Practitioner Family Medicine 03/28/24 Mobile Sales Consultant Relationship Specialty Start Date End Date Amanda Villafana MD [address] [place] [address] PCP - General Family Medicine 09/10/24 Samanta Cota NP [address] [place] [address] Nurse Practitioner Family Medicine 03/28/24 Mobile Sales Consultant Relationship Specialty Start Date End Date Amanda Villafana MD [address] [place] [address] PCP - General Family Medicine 09/10/24 Samanta Cota NP [address] [place] [address] Nurse Practitioner Family Medicine 03/28/24 Mobile Sales Consultant Relationship Specialty Start Date End Date Amanda Villafana MD [address] [place] [address] PCP - General Family Medicine 09/10/24 Samanta Cota NP [address] [place] [address] Nurse Practitioner Family Medicine 03/28/24 Mobile Sales Consultant Relationship Specialty Start Date End Date Amanda Villafana MD [address] [place] [address] PCP - General Family Medicine 09/10/24 Samanta Cota NP [address] [place] [address] Nurse Practitioner Family Medicine 03/28/24 REASON FOR VISIT (unrecogniz ed section and content) Reason Comments Foot/ankle Post-op WK 6 post op Reason Comments Foot/ankle Post-op WK 2 post op Reason Comments Foot/ankle Post-op WK 1 post op Reason Comments Consent Or Instructions Surgery consult for LT foot Reason Comments Plantar Fasciitis F/U LT foot plantar fasciitis inj x3 Reason Comments Plantar Fasciitis F/U LT foot plantar fasciitis inj x1 Reason Comments Heel Pain LT heel pain [id number] month Follow up Goals (unrecognized section and [...] BE BASED ON THE PRIMARY CLINICAL RECORDS. [employer] [facility]. provides no warranty or guarantee of the accuracy or completeness of information in this document.
--- OUTSIDE RECORDS SUMMARY | 2025-02-23 22:30 | XMS_ITS | Encounter Summary ---
Author Organization [facility] Address [address] [place] [address] Care Team Providers Care Cook 3 Pastry Name Role Phone Earnest Jackson MD Primary Care Provider [phone] Samanta Cota NP Unavailable [phone] Emi Gaxiola MD Primary Care Provider [phone] Reason for Visit * Reason Comments Med Refill Encounter Details Date Type Department Care Team (Late st Contact Info) Description 03/12/2024 [facility]ill [facility] [address] [place] [address] Samanta Cota NP [address] [place] [address] Type 2 diabetes mellitus without complications (HCC) Social History Tobacco Use Types Packs/Day Years Used Date Smoking Tobacco: Never Assessed Comments Unknown Sex and Gender Information Value Date Recorded Sex Assigned at Not on file Legal Sex Female 8:33 PM EDT Gender Identity Not on file Sexual Orientation Not on file documented as of this encounter Miscellaneous Notes * Telephone Encounter - Samanta Cota NP - 03/12/2024 11:55 AM EDT No longer my pt documented in this encounter Plan of Treatment Not on file documented as of this encounter Visit Diagnoses Diagnosis Type 2 diabetes mellitus without complications (HCC) documented in this encounter Care Teams Cook 3 Pastry Relationship Specialty Start Date End Date Earnest Jackson MD PCP - General Family Medicine 03/04/23 09/09/24 Emi Gaxiola MD [address] [place] [address] PCP - General Family Medicine 09/10/24 Samanta Cota NP [address] [facility] [place] [address] Nurse Practitioner Family Medicine 03/28/24 documented as of this encounter
--- OUTSIDE RECORDS SUMMARY | 2025-02-23 22:30 | XMS_ITS | Encounter Summary ---
Author Organization [facility] Address [address] [place] [address] Care Team Providers Care Operator Command Support Systems Name Role Phone Earnest Jackson MD Primary Care Provider Samanta Cota SCREW CUTTER Unavailable [phone] Emi Gaxiola MD Primary Care Provider [phone] Encounter Details Date Type Department Care Team (Late st Contact Info) Description 02/15/2023 Abstract [facility] [address] [place] [address] Matt Cool DO [address] [place] [address] Social History Tobacco Use Types Packs/Day [...] on filedocumented in this encounter Care Teams Operator Command Support Systems Relationship Specialty Start Date End Date Earnest Jackson MD PCP - General Family Medicine 03/04/23 09/09/24 Eim Gaxiola MD [address] [place] [address] PCP - General Family Medicine 09/10/24 Samanta Cota NP [address] [place] [address] Nurse Practitioner Family Medicine 03/28/24 documented as of this encounter
--- OUTSIDE RECORDS SUMMARY | 2025-02-23 22:30 | XMS_ITS | Encounter Summary ---
Author Organization [facility] Address [address] [place] [address] Care Team Providers Care Silk Screen Frame Assembler Name Role Phone Samanta Cota BOBTAIL DRIVER Unavailable [phone] Emi Gaxiola MD Primary Care Provider Encounter Details Date Type Department Care Team (Late st Contact Info) Description 10/15/2024 Abstract [facility] [address] [place] [phone] Earnest Carpio, DPM FACFAS [address] [place] [address] Social History Tobacco Use Types Packs/Day Years [...] on filedocumented in this encounter Care Teams Silk Screen Frame Assembler Relationship Specialty Start Date End Date Emi Gaxiola MD [address] [facility] [place] [address] PCP - General Family Medicine 09/10/24 Samanta Cota NP [address] [place] [address] Nurse Practitioner Family Medicine 03/28/24 documented as of this encounter
--- OUTSIDE RECORDS SUMMARY | 2025-02-23 22:30 | XMS_ITS | Encounter Summary ---
Author Organization [facility] Address [address] [place] [address] Care Team Providers Care Assembly Cleaner Name Role Phone Samanta Cota EXTERIOR WORK HELPER Unavailable [phone] Emi Gaxiola MD Primary Care Provider Encounter Details Date Type Department Care Team ([facility] st Contact Info) Description 09/13/2024 Abstract [facility] [address] [place] [phone] Earnest Carpio, DPM FACFAS [address] [place] [address] Social History Tobacco Use Types [...] on filedocumented in this encounter Care Teams Assembly Cleaner Relationship Specialty Start Date End Date Emi Gaxiola MD [address] [facility] [place] [address] PCP - General Family Medicine 09/10/24 Samanta Cota NP [address] [place] [address] Nurse Practitioner Family Medicine 03/28/24 documented as of this encounter
[2025-02-23 22:32] LABS: Glucometer 112 mg/dL (74-106)
--- NOTE | 2025-02-23 22:47 | ED.GENADUL1 ---
HPI HPI - General Adult General Chief complaint: Headache Stated complaint: vomiting Time Seen by Provider: 02/23/25 22:32 Source: patient Mode of arrival: walk-in Limitations: no limitations History of Present Illness HPI narrative: cc -migraine cephalgia Patient presents complaining of pain to the top of her head that she said is typical of her prior migraines. The pain began around 1 PM this afternoon and has been steadily and slowly increasing since then. Pain radiates to the back of the head, again, in for her prior migraines. She has developed nausea and vomiting over the last few hours and came in for evaluation. She was not able to keep any liquids down over the last couple of hours. No relief with prior use of Fioricet, Tylenol and Motrin. She was discharged from the neurologist's practice after she missed appointments. She does not currently have a neurologist that she sees for headaches. She takes amitriptyline daily for prevention, she told me. She does not have anything for breakthrough headaches. Related Data Home Medications ?Medication ?Instructions ?Recorded ?Confirmed levothyroxine 137 mcg tablet 137 mcg PO .aday 02/10/23 02/23/25 tirzepatide 2.5 mg/0.5 mL 7.5 mg subcut QWEEK 02/10/23 02/23/25 subcutaneous pen injector (Emmanuel) metformin 750 mg tablet,extended 750 mg PO DAILY 08/06/23 02/23/25 release 24 hr lisinopril 20 mg tablet 20 mg PO QDAY 07/05/24 02/23/25 amitriptyline 50 mg tablet 50 mg PO HS 02/23/25 02/23/25 Previous Rx's ?Medication ?Instructions ?Recorded lisinopril 20 mg tablet 20 mg PO DAILY #30 tabs 07/05/24 eihmllwhzs-pzrdhanfagikw-lsfcmlzx 1 cap PO Q8H PRN pain #20 caps 10/31/24 50 mg-300 mg-40 mg capsule (Fioricet) ridcjevoak-judrqxjobeumc-hvkqaqfd 1 cap PO Q6H PRN pain 5 days #20 01/06/25 50 mg-300 mg-40 mg capsule caps (Fioricet) ondansetron 4 mg disintegrating 4 mg PO Q6H PRN headache, nausea 02/24/25 tablet or vomiting #20 tabs Allergies Allergy/AdvReac Type Severity Reaction Status Date / Time oxycodone (From Percocet) AdvReac Intermediate Rash Verified 02/23/25 22:33 Opioid HPI Opioid Management Most Recent Opioid Data: Last Pain Scale 9 02/23/25, 22:29 Last ED Pain Assessment 02/23/25, 23:27 [facility] PFS Medical History (Updated 02/23/25 @ 22:49 by Rah Brooke) Hypothyroidism ?E03.9 - Hypothyroidism, unspecified (ICD-10) Familial hyperthyroidism ?E05.80 - Other thyrotoxicosis without thyrotoxic crisis or storm (ICD-10) HTN (hypertension) ?I10 - Essential (primary) hypertension (ICD-10) Diabetes ?E11.9 - Type 2 diabetes mellitus without complications (ICD-10) Family History (Updated 02/10/23 @ 04:43 by Jazmine Doyle) Mother Family history of COPD (chronic obstructive pulmonary disease) Family history of diabetes mellitus Family history of hypertension Sister Family history of cancer Family history of diabetes mellitus Father Family history of cancer Social History (Updated 02/10/23 @ 04:44 by Jazmine Doyle) Within the past year, how often did you have a drink containing alcohol: never Within the past year, how often did you have six or more drinks on one occasion: never Score interpretation: A score less than 3 is consistent with normal alcohol consumption. 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 Known occupational exposures/hazards: No Highest level of school completed/degree received: GED or equivalent Do you want help with school or training: No Are you now , , , , never or living with a partner: In a typical week, how many times do you talk on the telephone with family, friends, or neighbors: 3 or more times per week How often do you get together with friends or relatives: 3 or more times per week How often do you attend anabaptism or amish services: never Do you belong to any clubs or organizations such as anabaptism groups unions, fraternal or athletic groups, or school groups: no Total score: 1 Score interpretation: A score of less than or equal to 1 indicates the most socially isolated. Little interest or pleasure in doing things: not at all Feeling down, depressed, or hopeless: not at all Feel stressed/tense/nervous/anxious/difficulty sleeping: not at all Due to disability, difficulty making decisions: No Do you think of yourself as: straight/heterosexual Gender Identity: female Exam Narrative Exam Narrative: Nurses notes and vital signs reviewed and patient is not hypoxic. afebrile General: Well-appearing and in no apparent distress. Skin: Warm, dry, no pallor noted. No rash. Head: Normocephalic, atraumatic. Neck: Supple, non-tender. No meningismus. Eye: Pupils are equal, round and EOMI. No scleral icterus. Ears, Nose, Mouth, and Throat: Oral mucosa is moist Cardiovascular: Regular Rate and Rhythm without murmur, gallop or rub. Respiratory: No accessory muscle use or respiratory distress. Lungs are clear to auscultation, no wheezing, rales or rhonchi Musculoskeletal: normal ROM Neurological: A&O x4. No cranial nerve dysfunction observed. No truncal ataxia. Moves all extremities. Sensation intact. Psychiatric: Cooperative and interactive. Normal mood and affect. Constitutional Vital Signs, click to edit/add: Last Vital Signs Temp 98.6 F 02/23/25 22:29 Pulse 72 02/23/25 23:38 Resp 18 02/23/25 23:38 BP 184/89 H 02/23/25 23:38 Pulse Ox 97 02/23/25 23:38 O2 Del Method Room Air 02/23/25 23:38 Course Vital Signs Vital signs: Vital Signs Temperature 98.6 F 02/23/25 22:29 Pulse Rate 76 02/23/25 22:29 Respiratory Rate 18 02/23/25 22:29 Blood Pressure 146/86 H 02/23/25 22:29 Pulse Oximetry 97 02/23/25 22:29 Oxygen Delivery Method Room Air 02/23/25 22:29 Temperature 98.6 F 02/23/25 22:29 Pulse Rate 72 02/23/25 23:38 Respiratory Rate 18 02/23/25 23:38 Blood Pressure 184/89 H 02/23/25 23:38 Pulse Oximetry 97 02/23/25 23:38 Oxygen Delivery Method Room Air 02/23/25 23:38 Medical Decision Making MDM Narrative Medical decision making narrative: Pt had a CT brain on last ED visit that was negative - I do not see a benefit to repeating brain imaging at this time. I offered the patient to receive oral and sublingual medications but she does not believe that she can keep those down and was agreeable to IV access. Peripheral IV was established and patient ordered to receive IV Toradol, IV Zofran and IV Benadryl. No change or decrease in headache on initial check at 2320. On recheck at 0004, the patient's headache had reduced from 9 out of 10 at intake to 2 out of 10 and she felt ready to be discharged home. She was prescribed oral dissolvable Zofran and instructed to take that along with Tylenol and ibuprofen when she first starts to experience either aura or headache. Lab Data Lab results reviewed: Yes I reviewed the patient's lab results Labs: Lab Results 02/23/25 Range/Units 22:31 POC Glucose 112 H (74-106) mg/dL Discharge Plan Discharge Chief Complaint: Headache Clinical Impression: Migraine, Headache Patient Disposition: Home, Self-Care Time of Disposition Decision: 00:06 Prescriptions / Home Meds: New ondansetron 4 mg tablet,disintegrating 4 mg PO Q6H PRN (Reason: headache, nausea or vomiting) Qty: 20 0RF No Action lbfcbjamne-sjrzzufsfxzdn-ecgq [Fioricet] 50-300-40 mg capsule 1 cap PO Q8H PRN (Reason: pain) Qty: 20 0RF amitriptyline 50 mg tablet 50 mg PO HS levothyroxine 137 mcg tablet 137 mcg PO .aday Mounjaro 2.5 mg/0.5 mL pen injector 7.5 mg SUBCUT QWEEK metformin 750 mg tablet extended release 24 hr 750 mg PO DAILY lisinopril 20 mg tablet 20 mg PO QDAY Patient Comments: Pt has not been taking. She stopped it herself. lisinopril 20 mg tablet 20 mg PO DAILY Qty: 30 0RF wqxzxewmtk-rbuvnqylrdeer-ucbu [Fioricet] 50-300-40 mg capsule 1 cap PO Q6H PRN (Reason: pain) 5 Days Qty: 20 0RF Print Language: Azeri Instructions: Migraine Headache (ED), Acute Headache (ED) Referrals: Emi Gaxiola MD [Primary Care Provider, Family Practice] - 1 week
[2025-02-23] MEDS: ONDANSETRON PF 4 MG/2 ML VIAL IV ×2 (22:58→23:37)
[2025-02-23] MEDS: DIPHENHYDRAMINE HCL 50 MG/ML VIAL 25 MG IVP (22:59)
[2025-02-23] MEDS: KETOROLAC TROMETHAMINE 30 MG/ML VIAL IVP (22:59)
[2025-02-23] MEDS: MAGNESIUM SULFATE/D5W 1 GM/100 ML PREMIX IV (23:37)
[2025-02-23] MEDS: METHYLPREDNISOLONE SOD SUCC PF 125 MG/2 ML VIAL IVP (23:37)
[2025-02-23 23:38] VITALS: BP 184/89; PULSE 72; O2SAT 97
== END 2025-02-24 00:19 | disposition home or self-care (01) ==
PROVIDERS: Emergency Provider Emergency Medicine; PCP Family Medicine
DX: G43.909 Migraine, unspecified, not intractable, without status migrainosus (principal); Z79.899 Other long term (current) drug therapy; Z87.891 Personal history of nicotine dependence
CPT/HCPCS: 36415; 96365; 96375; 96376; 99284; J1200; J1885; J2405; J2919; J3475

== ENCOUNTER 2025-03-26 22:50 | Emergency (ER) | payer OTHER, SELFPAY ==
--- OUTSIDE RECORDS SUMMARY | 2021-03-12 08:00 | XMS_ITS | Continuity of Care Document ---
Author Organization [employer] [facility] Address [address] [place] [address] [place] [address] Phone Care Team Providers Care Cigarette Making Machine Hopper Feeder Name Role Phone Danny Chávez Unavailable Unavailable Procedures Procedure Date PSYCH DIAGNOSTIC EVALUATION PSYCL/NRPSYC TST PHY/QHP 1ST PSYCL/NRPSYC TST PHY/QHP EA OFFICE CONSULTATION Advance Directives Directive Yes / No Effective Date File Name No Information Encounters Encounter Description Practice Location Reason(s) For Visit Diagnoses Date Provider Providers Copied on Encounter PSYCH DIAGNOSTIC EVALUATION [employer] [facility], [address] [facility], [id number], [place] tel:[phone] [facility] Weight Loss Surgery No Information Saira Delgado. [address], [id number], [place]. tel:[phone] Referring Provider: Danny Chávez, [address] [place] [address], [address]. tel:[phone] OFFICE CONSULTATION [employer] [facility], [address] [facility], [id number], [place] tel:[phone] [facility] Weight Loss Surgery No Information Erik Medina. [address] [facility] [address], [id number], [place]. tel:[phone] Referring Provider: Adam Alba, [address], [address]. tel:[phone] Family History Family Member Type Diagnosis Age At Onset No Information Payers Payer name Insurance type Covered republican ID Luther whitaker(sAngella Gunderson [id number] Social History Type Description Quantity Date Captured [...]
[2025-03-26] VITALS (7 sets, daily range): BP systolic 160–184; BP diastolic 79–93; PULSE 69–70; TEMP 37; O2SAT 97–99; BMI 36.0
--- OUTSIDE RECORDS SUMMARY | 2025-03-26 23:24 | XMS_ITS | Clinical Summary ---
Author Organization [facility] Address [address] [place] [id number] Care Team Providers Care Assorter Name Role Phone Toby Badillo DO Primary Care Provider [phone] Allergies Active Allergy Reactions Criticality Noted Date [...] for review at this time Patient is Yazdanism 10/02/2020 Assessment & Plan (10/02/2020 4:11 PM [...] N ot on file 08/06/2020 Data from: https://www.neighborhoodatlas.medicine.[facility].edu/. Last address used for calculation Not on [...] Sigmoidoscopy 2023 Diabetes Screening 09/19/2023 09/19/2020, 09/09/2020 Influenza Vaccine (#1) 2025 Procedures Procedure Name Priority Date/Time Associated Diagnosis Comments COMPREHENSIVE METABOLIC PANEL Routine 09/19/2020 10:08 AM EST Iron deficiency anemia, unspecified iron deficiency anemia type from Last 3 Months or Most Recently Relevant to Health Maintenance Results * (ABNORMAL) COMP METABOLIC PANEL (09/19/2020 10:08 AM EST) Protein, Total 7.2 6.3 - 8.0 g/dL 09/19/2020 5:40 PM EST [facility] Albumin 4.2 3.9 - 4.9 g/dL 09/19/2020 5:40 PM EST [facility] Calcium 8.8 8.5 - 10.2 mg/dL 09/19/2020 5:40 PM [facility] Bilirubin, Total 0.3 0.2 - 1.3 mg/dL 09/19/2020 5:40 PM [facility] Alkaline Phosphatase 63 34 - 123 U/L 09/19/2020 5:40 PM [facility] AST 23 13 - 35 U/L 09/19/2020 5:40 PM [facility] Glucose 202(H) 74 - 99 mg/dL 09/19/2020 5:40 PM [facility] Comment: The [place] [employer] (ADA) provides guidance for cutoff [...] Standards of Medical Care in Diabetes 2016, [place] [employer]. Diabetes Care. 2016.39(Suppl 1). BUN 11 7 - 21 mg/dL 09/19/2020 5:40 PM [facility] Creatinine 0.62 0.58 - 0.96 mg/dL 09/19/2020 5:40 PM [facility] Sodium 137 136 - 144 mmol/L 09/19/2020 5:40 PM [facility] Potassium 4.1 3.7 - 5.1 mmol/L 09/19/2020 5:40 PM [facility] Chloride 102 97 - 105 mmol/L 09/19/2020 5:40 PM [facility] CO2 24 22 - 30 mmol/L 09/19/2020 5:40 PM [facility] Anion Gap 11 9 - 18 mmol/L 09/19/2020 5:40 PM [facility] ALT 15 7 - 38 U/L 09/19/2020 5:40 PM [facility] eGFR- >60 09/19/2020 5:40 PM EST [facility] eGFR-All Other Races >60 . 09/19/2020 5:40 PM EST [facility] Comment: eGFR (Estimated GFR) Units [...] EST us Олег Kaplan MD LABORATORY Final Re sult [facility] [address] [place] [address] [facility] [address] [place] [address] from Last 3 Months or Most Recently Relevant to Health Maintenance Insurance [employer] Member Subscriber Plan / Payer (Ef fective 2022-Present) Name:Palomo Anabella Relation to Subscriber:Self Name:PalomoHerAnabella Payer ID:[id number] (NAIC) Group ID:[id number] Type:Medicaid Address: [place] [id number] Care Teams Assorter Relationship Specialty Start Date End Date Toby Badillo DO PCP - General Family Medicine 03/29/12
--- OUTSIDE RECORDS SUMMARY | 2025-03-26 23:24 | XMS_ITS | CCD ---
Author Organization [facility] Care Team Providers Care Manager Product Marketing Name Role Phone UNKNOWN, PROVIDER Admitting Unavailable LONDON SALEH Attending Unavailable UNKNOWN, PHYSICIAN Referring Unavailable UNKNOWN, PHYSICIAN Primary Care Unavailable KELLY SALAS CNP Primary Care Physician [phone] Beverly Childers Unavailable Unavailable AICHHOLZ, BAGGAGEMAN SAMANTA Primary Care Unavailable BOB ., CECI Admitting Unavailable BOB ., CECI Attending Unavailable BOB ., CECI Consulting Unavailable AICHHOLZ, BAGGAGEMAN SAMANTA Primary Care Unavailable HARRISON, TRACEY Admitting Unavailable TRACEY TERRY Attending Unavailable JAVIER TERRYYL Consulting Unavailable AICHHOLZ, BAGGAGEMAN SAMANTA Admitting Unavailable AICHHOLZ, BAGGAGEMAN SAMANTA Attending Unavailable AICHHOLZ, BAGGAGEMAN SAMANTA Primary Care Unavailable AICHHOLZ, BAGGAGEMAN SAMANTA Admitting Unavailable AICHHOLZ, BAGGAGEMAN SAMANTA Attending Unavailable AICHHOLZ, BAGGAGEMAN SAMANTA Primary Care Unavailable AICHHOLZ, BAGGAGEMAN SAMANTA Consulting Unavailable DR MANJU CHAMPAGNE Consulting Unavailable AICHHOLZ, BAGGAGEMAN SAMANTA Admitting Unavailable AICHHOLZ, BAGGAGEMAN SAMANTA Attending Unavailable AICHHOLZ, BAGGAGEMAN SAMANTA Primary Care Unavailable AICHHOLZ, BAGGAGEMAN SAMANTA Consulting Unavailable AICHHOLZ, BAGGAGEMAN SAMANTA Admitting Unavailable AICHHOLZ, BAGGAGEMAN SAMANTA Attending Unavailable AICHHOLZ, BAGGAGEMAN SAMANTA Primary Care Unavailable AICHHOLZ, BAGGAGEMAN SAMANTA Consulting Unavailable AICHHOLZ, BAGGAGEMAN SAMANTA Admitting Unavailable AICHHOLZ, BAGGAGEMAN SAMANTA Attending Unavailable AICHHOLZ, BAGGAGEMAN SAMANTA Primary Care Unavailable AICHHOLZ, BAGGAGEMAN SAMANTA Consulting Unavailable AICHHOLZ, SAMANTA J Primary Care Physician [phone] Amanda Villafana Unavailable Beata PIPE FITTER GAS PIPE, Samanta Unavailable Amanda Villafana MD Primary Care Provider Amanda Villafana MD Primary Care Provider Amanda Villafana MD Primary Care Provider AMANDA VILLAFANA Primary Care Physician [phone] AIME, EARNEST Pearson Attending Unavailable DOLCE, EARNEST D Attending Unavailable DOLCE, EARNEST D Attending Unavailable DOLCE, EARNEST D Attending Unavailable DOLCE, EARNEST D Attending Unavailable DOLCE, EARNEST D Referring Unavailable DOLCE, EARNEST D Attending Unavailable DOLCE, EARNEST D Attending Unavailable DOLCE, EARNEST D Attending Unavailable DOLCE, EARNEST D Referring Unavailable DOLCE, EARNEST D Attending Unavailable DOLCE, EARNEST D Referring Unavailable DokkenPedro Attending Unavailable PARAG, TRESA Garcia Attending Unavailabl e Allergies Allergy Classification Reported Allergen(s) Allergy Type Date of Onset Reaction(s) Facility (2 sources) Acetaminophen / oxyCODONE Drug Allergy 9 [facility] Repository (15 sources) Acetaminophen / oxyCODONE; Translations: [acetaminophen-ox ycodone] Drug Allergy Eruption of skin (disorder), [facility] (1 source) Acetaminophen Drug Allergy 1 [facility] Repository (3 sources) Acetaminophen Drug Allergy 4 [facility] (3 sources) oxyCODONE Drug Allergy 4 [facility] (20 sources) Acetaminophen / oxyCODONE Drug Allergy [...] q4hr for headache, 15 tab(s), Refill(s) 0, [facility]/pharmacy #[id number], 60, cm, 04/04/21 17:48:00 EDT, Height/Length Dosing, 94.9, kg, 04/04/21 17:48:00 EDT, Weight Dosing Start Date: 04/04/21 Status: Ordered [id number] 200 actuat albuterol 0.09 mg/actuat metered dose [...] oral tablet (20 sources) Tricyclic Antidepressant Start: 023 take 1 tablet by mouth at bedtime amitriptyline (Elavil) 50 MG tablet Take 50 mg by mouth at bedtime. 02/02/2023 Active Start: 02-06-2021 take 1 tablet by chiqui once daily at bedtime Elavil 25 mg Tab 25 mg = 1 tab(s), Oral, Once a day (at bedtime), # 30 tab(s), Refills(s) 0, Pharmacy: [facility]/pharmacy #[id number], 60, cm, 02/04/21 9:34:00 EDT, Height/Length Dosing, 99.3, kg, 02/04/21 6:14:00 EDT, Weight Dosing Start Date: 02/06/21 Status: Ordered aspirin 81 mg delayed release oral tablet (4 sources) Platelet Aggregation Inhibitor, Nonsteroidal Anti-inflammatory Drug Start: 02-06-2021 take 1 tablet by mouth once daily aspirin 81 mg Oral EC Tab 81 mg = 1 tab(s), Oral, Daily, # 90 tab(s), Refills(s) 0, [id number] 60, cm, 02/04/21 9:34:00 EDT, Height/Length Dosing, 99.3, kg, 02/04/21 6:14:00 EDT, Weight Dosing Start Date: 02/06/21 Status: Ordered Start: 02-06-2021 take 1 tablet by chiqui th once daily aspirin 81 mg Oral EC Tab 81 mg = 1 tab(s), Oral, Daily, # 90 tab(s), Refills(s) 0, Pharmacy: [facility]/pharmacy #[id number], 60, cm, 02/04/21 9:34:00 EDT, Height/Length Dosing, 99.3, kg, 02/04/21 6:14:00 EDT, Weight Dosing Start Date: 02/06/21 Status: Ordered atorvastatin 40 mg oral tablet (4 sources) HMG-CoA Reductase Inhibitor Start: 02-06-2021 take 1 tablet by mouth once daily Lipitor 40 mg Tab 40 mg = 1 tab(s), Oral, Daily, # 90 tab(s), Refills(s) 0, [id number], 60, cm, 02/04/21 9:34:00 EDT, [...] Daily, # 90 tab(s), Refills(s) 0, Pharmacy: [facility]/pharmacy #[id number], 160, cm, 04/06/19 13:58:00 EDT, Height/Length Measured, 91.2, kg, 04/06/19 13:58:00 EDT, Weight Measured Start Date: 11/14/19 Status: Ordered take 1 capsule [facility] in the morning Levothyroxine [...] q6hr, # 12 tab(s), Refills(s) 0, Pharmacy: [facility]/pharmacy #[id number], 162, cm, 01/21/25 22:41:00 EDT, Height/Length [...] s of breath, 1 EA, Refill(s) 0, [facility]/pharmacy #[id number] Start Date: 02/26/19 Status: Ordered sulfamethoxazole 800 mg / trimethoprim 160 mg oral tablet (5 sources) Dihydrofolate Reductase Inhibitor Antibacterial, Sulfonamide Antimicrobial Start: 06-14-2024 End: 02-06-2025 take 1 tablet by mouth twice daily [...] deficiency 01-05-2019 Chronic Other aftercare (1 source) 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; Translations: [RETIREMENT USE ORAL HYPOGLYCEMIC DX] Onset: 12-14-2022 Episodic Other aftercare (1 source) Other halfway (current) drug therapy; Translations: [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] Onset: 12-14-2022 Episodic Other [...] UNS] Onset: 02-15-2022 Chronic Unclassified (5 sources) Restoration yarsani (yarsani/philosoph y) 08-23-2011 Urinary tract infections (1 source) Urinary tract infection, site not specified; Translations: [UTI SITE NOT SPECIFIED] Onset: 12-14-2022 Episodic Past or Other Problems Problem Classification Problem Date Documented Date Episodic/Chronic Diabetes or abnormal glucose tolerance complicating ; childbirth; or the puerperium (5 sources) Gestational diabetes mellitus, class A>2< Resolved: 07-28-2011 09-12-2011 Episodic E Codes: Unspecified (20 sources) 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; Translations: [Activity, other specified] Onset: 10-02-2020 [...] intact trabeculation noted across the osteotomy site [facility] Study observation (narrative) [facility] XR Foot - left 3 Viewson Imaging Result: Three views were taken today AP/MO/LAT foot: No fractures or dislocations seen excellent position alignment of the great toe joint fixation intact left foot [facility] Study observation (narrative) [facility] ED Clinical Summaryon 2024 ED Clinical Summary ED Clinical Summary [place] [id number] ED Clinical Summary Person Information Name: APRYL DOWNS/[facility] Age: 44 Years : 1980 Sex: Female Language: Italian PCP: AMANDA VILLAFANA MD Marital Status: Phone: [phone] Visit Id: Visit Reason: Vomiting; Nausea; Headache [...] 01/22/2025 00:38:41 01/22/2025 00:38:41 01/22/2025 00:38:41 ADDRESS: [address] [place] [id number] PHYS DOC NOTES: MEDICAL INFORMATION: Prescriptions Given: New Medications [id number], [address], [place] [id number], [phone] ondansetron (Zofran ODT 4 mg Tab-Dis) 1 [...] Refill(s). PATIENT EDUCATION INFORMATION: Instructions: Migraine Headache, Eode-uo-Uohs Follow up: With: Address: When: Brigido Fisher [address], [place], [place] [id number] Business (1) In 3 days 01/25/2025 Comments: You can use the Zofran every 6 hours as needed for nausea and vomiting. Please follow-up with your primary care doctor and neurology for further evaluation management of your symptoms. Please return to the ED for any new or worsening symptoms. With: Address: When: AMANDA VILLAFANA [address] [place], [place] [phone] Business (1) In 3 days DIAGNOSIS: Headache, migraine Normal [facility] ED Note-Physicianon 01-23-20 ED Note-Physician ED [...] and Complexity of Problems Differential Diagnosis: [] [facility] Data External documents reviewed: [] My EKG [...] q6hr, # 12 tab(s), Refills(s) 0, Pharmacy: [facility]/pharmacy #[id number], 162, cm, 01/21/25 22:41:00 EDT, Height/Length [...] 3 days 01/25/[address], [place] [address]- Business (1) Additional Instructions: You can use the Zofran every 6 hours as needed for nausea and vomiting. Please follow-up with your primary care doctor and neurology for further evaluation management of your symptoms. Please return to the ED for any new or worsening symptoms. AMANDA VILLAFANA In 3 days 1 (more content not included)... Normal [facility] Comment on above: Result Comment: Elec tronically Signed By: Pedro Syed DO\.br\Date and Time Signed: 01/22/25 00:53 EDT ED Patient Summaryon 025 ED Patient Summary ED Patient Summary [address] [address] Patient Discharge Instructions Person Information Name: APRYL DOWNS Age: 44 Years Arrival Date: 01/21/2025 22:28:55 Discharge Diagnosis: Headache, migraine Primary Care Physician: AMANDA VILLAFANA MD Provider Information Primary Provider: Pedro Syed DO Advanced Talent Specialist:None The exam and treatment you received in the Emergency Department were for an urgent problem and are not intended as complete care. It is important that you follow up with a doctor, nurse practitioner, or physician???s operations manager assistant for ongoing care. If your symptoms [...] Address: When: Brigido Fisher [address], [place] [phone] Business (1) In 3 days 01/25/2025 Comments: You can use the Zofran every 6 hours as needed for nausea and vomiting. Please follow-up with your primary care doctor and neurology for further evaluation management of your symptoms. Please return to the ED for any new or worsening symptoms. With: Address: When: AMANDA VILLAFANA [address] [place], [place] [phone] [employer] (1) In 3 days In the event that this physician does not participate in your insurance network, please consult with your insurance company to find a nearby participating provider. Patient Education Materials: Migraine Headache, Vtly-cs-Exux A MESSAGE TO ALL PATIENTS REGARDING OPIOIDS PRESCRIPTION OPIOIDS: WHAT YOU NEED TO KNOW Prescription opioids can be used to help relieve spzxogoj-zf-bzlikq pain and are often prescribed following a [...] drug take (more content not included)... Normal [facility] XR Foot - left 3 Viewson Imaging Result: Radiographs: AP/MO/LAT: Three views were taken today AP/MO/LAT foot: No fractures or dislocations seen excellent position alignment of the great toe joint fixation intact [facility] Study observation (narrative) [facility] ALL CBC WITH AUTO DIFFon BASOPHILS ABSOLUTE AUTO 0 [facility] Basophils/100 WBC (Bld) 0.6 % 0.2 - 2.0 % [facility] Eosinophils/100 WBC (Bld) 1.6 % 0.9 - 7.0 % [facility] Erythrocyte distribution width (RBC) [Ratio] 13.9 % 11.0 - 15.0 % [facility] Hematocrit (Bld) [Volume fraction] 37.9 % 36.0 - 48.0 % [facility] Hemoglobin (Bld) [Mass/Vol] 12.6 g/dL 12.0 - 16.0 g/dL [facility] IMMATURE GRANULOCYTES ABS AUTO 0.02 [facility] Immature granulocytes/100 WBC (Bld) 0.3 % 0.0 - 0.5 % [facility] LYMPHOCYTES ABSOLUTE AUTO 1.7 [facility] Lymphocytes/100 WBC (Bld) 23.4 % 20.5 - 60.0 % [facility] MCH (RBC) [Entitic mass] 28.7 pg 26.7 - 34.0 pg [facility] MCHC (RBC) [Mass/Vol] 33.2 g/dL 29.9 - 35.2 g/dL [facility] MCV (RBC) [Entitic vol] 86.3 fL 81.0 - 99.0 fL [facility] MONOCYTES ABSOLUTE AUTO 0.7 [facility] Monocytes/100 WBC (Bld) 9.2 % 1.7 - 12.0 % [facility] NEUTROPHILS ABSOLUTE AUTO 4.6 [facility] Neutrophils/100 WBC (Bld) 64.9 % 43.0 - 75.0 % [facility] Platelet mean volume (Bld) [Entitic vol] 10.1 fL 9.5 - 13.5 fL [facility] EO # 0.1 [facility] PLT 263 [facility] RBC 4.39 [facility] WBC 7 [facility] XR FOOT LT MIN 3Von 01-03-[address] [address] XRay Report Signed Patient: APRYL DOWNS MR#: [id number] : 1980 Acct:[id number] Age/Sex: 44 / F ADM Date: 01/02/25 Loc: LAB Attending Dr: EARNEST SALOMON M.D. Ordering Physician: EARNEST SALOMON M.D. Date of Service: 01/02/25 Procedure(s): XR foot LT min 3V Accession Number(s): [id number] cc: Amanda Villafana M.D.; EARNEST SALOMON M.D. [address] [address] Patient Name: APRYL DOWNS MRN: [facility]:[id number] date: 1980 Sex: F Assigned Patient Location: LAB Current Patient Location: LAB Accession/Order Number: [id number] Exam Date: 01/02/2025 15:35 Report Date: 01/02/2025 [...] Jr., D.O. 01/02/2025 3:36 PM Dictation Location: [place] [address] Electronically authenticated by: [id number] Y Date: 01/02/2025 15:36 Dictated By: Alan Rowan M.D. 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 Ordering Physician: EARNEST SALOMON M.D. Date of Service: 01/02/25 Procedure(s): XR foot LT min 3V Accession Number(s): [id number] cc: Amanda Villafana M.D.; EARNEST SALOMON M.D. The [address] [address] Patient Name: APRYL DOWNS MRN: [id number] date: 1980 Sex: F Assigned Patient Location: LAB Current Patient Location: LAB Accession/Order Number: [id number] Exam Date: 01/02/2025 15:35 Report Date: 01/02/2025 [...] Jr., D.OGianna 01/02/2025 3:36 PM Dictation Location: [place] [address] Electronically authenticated by: [id number] Y Date: 01/02/2025 15:36 Dictated By: Alan Rowan M.D. 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 Ordering Physician: EARNEST SALOMON M.D. 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 Measurements Intervals [place] Rate: 69 P: 36 [place]: 121 QRS: 44 QRSD: 88 T: 47 QT: 398 QTc: 429 Interpretive Statements SINUS RHYTHM Normal ECG Compared to ECG 08/13/2021 17:51:10 ST (T wave) deviation no longer present Possible ischemia no longer present Electronically Signed On 12-24-2024 16:12:07 EDT by CESAR PINEDA M.D. Dictated By: CESAR PINEDA Signed By: 12/24/24 1612 12/24/24 1612 DD/ 1323 TD/TT: Door To Door Salesman: [facility] Radiology, Radiologist, MD - 12/24/[address] [address] Electrocardiograph Report Signed Patient: APRYL DOWNS MR#: [id number] : 1980 Acct:[id number] Age/Sex: 44 / F ADM Date: 12/24/24 Loc: CARD Attending Dr: EARNEST SALOMON M.D. Ordering Physician: EARNEST SALOMON M.D. 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 Measurements Intervals [place] Rate: 69 P: 36 [place]: 121 QRS: 44 QRSD: 88 T: 47 QT: 398 QTc: 429 Interpretive Statements SINUS RHYTHM Normal ECG Compared to ECG 08/13/2021 17:51:10 ST (T wave) deviation no longer present Possible ischemia no longer present Electronically Signed On 12-24-2024 16:12:07 EDT by CESAR PINEDA M.D. 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: [facility] Radiology Study observation (narrative) [facility] ECG 12-LEADOrdered By: Radio logist Radiology on 12-24-2024 [facility] Work Phone: Basophils Auto (Bld) [#/Vol] on 03-19-2024 Basophils (Bld) [#/Vol] 0.0 10 3/uL 0.0-0.1 [facility] Basophils/100 WBC Auto (Bld) on 03-19-2024 Basophils/100 WBC (Bld) 0.6 % 0.2-2.0 [facility] Eosinophils/100 WBC Auto (Bl d)on 03-19-2024 Eosinophils/100 WBC (Bld) 7.0 % 0.9-7.0 [facility] Erythrocyte distribution wid th Auto (RBC) [Ratio]on 03-19-2024 Erythrocyte distribution width (RBC) [Ratio] 13.6 % 11.0-15.0 [facility] Glucose mean value [Mass/vol ume] in Blood Estimated from glycated hemoglobinon 03-19-2024 Average glucose Estimated from glycated hemoglobin (Bld) [Mass/Vol] 123 mg/dL [facility] Hematocrit Auto (Bld) [Volum e fraction]on 03-19-2024 Hematocrit (Bld) [Volume fraction] 40.6 % 36.0-48.0 [facility] Hemoglobin [Mass/volume] in Bloodon 03-19-2024 Hemoglobin (Bld) [Mass/Vol] 13.1 g/dL 12.0-16.0 [facility] Laboratory - Chemistry and C hemistry - challengeon 03-19-2024 Ferritin [Mass/Vol] 14.0 ng/mL 8.0-252.0 [facility] Laboratory - Hematology and Cell countson 03-19-2024 HbA1c (Bld) [Mass fraction] 5.9 % 4.5-6.2 [facility] Comment on above: ADA RECOMMENDED LIMI T 4.0 - 6.0ADA THERAPEUTIC TARGET < 7.0ACTION SUGGESTED> 7.0 Immature granulocytes/100 WBC (Bld) 0.3 % 0.0-0.5 [facility] Leukocytes [#/volume] correc janel for nucleated erythrocytes in Blood by Automated counon 03-19-2024 WBC corrected for nucl RBC Auto (Bld) [#/Vol] 6.4 10 3/uL 4.0-11.0 [facility] Lymphocytes Auto (Bld) [#/Vo l]on 03-19-2024 Lymphocytes (Bld) [#/Vol] 1.3 10 3/uL 1.2-3.8 [facility] Lymphocytes/100 WBC Auto (Bl d)on 03-19-2024 Lymphocytes/100 WBC (Bld) 20.8 % 20.5-60.0 [facility] MCH Auto (RBC) [Entitic mass ]on 03-19-2024 MCH (RBC) [Entitic mass] 28.2 pg 26.7-34.0 [facility] MCHC Auto (RBC) [Mass/Vol]on 03-19-2024 MCHC (RBC) [Mass/Vol] 32.3 g/dL 29.9-35.2 [facility] MCV Auto (RBC) [Entitic vol] on 03-19-2024 MCV (RBC) [Entitic vol] 87.5 fL 81.0-99.0 [facility] Monocytes Auto (Bld) [#/Vol] on 03-19-2024 Monocytes (Bld) [#/Vol] 0.5 10 3/uL 0.3-0.8 [facility] Monocytes/100 WBC Auto (Bld) on 03-19-2024 Monocytes/100 WBC (Bld) 7.3 % 1.7-12.0 [facility] Neutrophils Auto (Bld) [#/Vo l]on 03-19-2024 Neutrophils (Bld) [#/Vol] 4.1 10 3/uL 1.4-6.5 [facility] Neutrophils/100 WBC Auto (Bl d)on 03-19-2024 Neutrophils/100 WBC (Bld) 64.0 % 43.0-75.0 [facility] No Panel Informationon 03-19 Eosinophils # (Auto) 0.5 10 3/uL 0.0-0.7 [facility] Immature Granulocyte # (Auto) 0.02 10 3/uL 0.00-0.03 [facility] Platelet mean volume Auto (B ld) [Entitic vol]on 03-19-2024 Platelet mean volume (Bld) [Entitic vol] 10.1 fL 9.5-13.5 [facility] Platelets Auto (Bld) [#/Vol] on 03-19-2024 Platelets (Bld) [#/Vol] 235 10 3/uL 150-450 [facility] RBC Auto (Bld) [#/Vol]on RBC (Bld) [#/Vol] 4.64 10 6/uL 4.20-5.40 [facility] CHEMISTRYOrdered By: SYSTEM SYSTEM on 03-08-2023 Albumin [...] (Bld) [Mass fraction] 5.8 % Normal <=5.9% FT [facility] CULTURE URINEon 12-14-2022 CULTURE URINE Isolate [...] Trimethoprim/Sulfame thoxazole <=20 S F Normal [facility] Comment on above: Performed By: #### Jony HUGHES UMICRO #### [facility] [address] [place] [address] Dr. Dandy Dobson ER URINE PROFILEon 3 Bilirubin Ql (U) Negative Normal NEGATIVE [facility] Comment on above: Performed By: #### Jony HUGHES UMICRO #### [facility] [address] [place] [address] Dr. Dandy Dobson Clarity (U) SL CLOUDY Abnormal CLEAR [facility] Comment on above: Performed By: #### Jony HUGHES UMICRO #### [facility] [address] [place] [address] Dr. Dandy Dobson Color (U) LT. YELLOW Normal YELLOW [facility] Comment on above: Performed By: #### Jony HUGEHS UMICRO #### [facility] [address] [place] [address] Dr. Dandy BENITEZMichel A micrscopic examination will be performed if indicated. Normal [facility] Comment on above: Performed By: #### Jony HUGHES UMICRO #### [facility] [address] [place] [address] Dr. Dandy Dobson Glucose Ql (U) Negative Normal NEGATIVE [facility] Comment on above: Performed By: #### Jony HUGHES UMICRO #### [facility] [address] [place] [address] Dr. Dandy Dobson Hemoglobin Ql (U) SMALL Abnormal NEGATIVE [facility] Comment on above: Performed By: #### E RUR, UMICRO #### [facility] [address] [place] [address] Dr. Dandy Dobson Ketones Ql (U) Negative Normal NEGATIVE The [facility] Comment on above: Performed By: #### VERONICA SIERRA #### [facility] [address] [place] [address] Dr. Dandy Dobson LEUKOCYTES SMALL Abnormal NEGATIVE [facility] Comment on above: Performed By: #### VERONICA SIERRA #### [facility] [address] [place] [address] Dr. Dandy Dobson Nitrite Ql (U) Negative Normal NEGATIVE [facility] Comment on above: Performed By: #### VERONICA SIERRA #### [facility] [address] [place] [address] Dr. Dandy Dobson pH (U) 6.0 [pH] Normal 5-9 [facility] Comment on above: Performed By: #### VERONICA SIERRA #### [facility] [address] [place] [address] Dr. Dandy Dobson Protein (U) [Mass/Vol] 30 mg/dL Abnormal NEGAT JACKELYN/ TRACE [facility] Comment on above: Performed By: #### VERONICA SIERRA #### [facility] [address] [place] [address] Dr. Dandy Dobson SPEC GRAVITY >=1.030 Abnormal 1.005-<=1.02 5 [facility] Comment on above: Performed By: #### VERONICA SIERRA #### [facility] [address] [place] [address] Dr. Dandy Dobson UR MICRO IND INDICATED Normal [facility] Comment on above: Performed By: #### VERONICA SIERRA #### [facility] [address] [place] [address] Dr. Dandy Dobson Urobilinogen Qn (U) 1.0 {Sarahi'U}/dL Normal 0.2 - 1. 0 [facility] Comment on above: Performed By: #### VERONICA SIERRA #### [facility] [address] [place] [address] Dr. Dandy Dobson URon 12-12-2022 , QUAL Negative Normal NEGATIVE [facility] Comment on above: Performed By: #### P REGU #### [facility] [address] [place] [address] Dr. Dandy Dobson URINE MICROSCOPIC ONLYon BACTERIA SMALL Abnormal NONE SEEN [facility] Comment on above: Performed By: #### Jony HUGHES UMICRO #### [facility] [address] [place] [address] Dr. Dandy Dobson Bacteria identified Cx Nom (U) INDICATED Normal [facility] Comment on above: Performed By: #### Jony RUEveline UMICRO #### [facility] [address] [place] [address] Dr. Dandy Dobson CAST NONE SEEN Normal NONE SEEN [facility] Comment on above: Performed By: #### Jony HUGHES UMICRO #### [facility] [address] [place] [address] Dr. Dandy Dobson Crystals LM Nom (Urine sed) NONE SEEN Normal NONE SEEN [facility] Comment on above: Performed By: #### Jony HUGHES UMICRO #### [facility] [address] [place] [address] Dr. Dandy Dobson Epithelial cells LM Ql (Urine sed) MODERATE Abnormal NONE SEEN /RARE [facility] Comment on above: Performed By: #### Jony HUGHES UMICRO #### [facility] [address] [place] [address] Dr. Dandy Dobson MUCOUS NONE SEEN Normal NONE SEEN [facility] Comment on above: Performed By: #### E RUR UMICRO #### [facility] [address] [place] [address] Dr. Dandy Dobson RBC 10-20 Abnormal 0-2 [facility] Comment on above: Performed By: #### E SAUL UMICRO #### [facility] [address] [place] [address] Dr. Dandy Dobson WBC (U) [#/Vol] /uL Abnormal NONE SEEN [facility] Comment on above: Performed By: #### VERONICA SIERRA #### [facility] [address] [place] [address] Dr. Dandy Dobson FREE T4on 11-29-2022 Free T4 [Mass/Vol] 1.10 ng/dL Normal 0.76-1.46 [facility] Comment on above: Performed By: #### VERONICA SIERRA #### [facility] [address] [place] [address] Dr. Dandy Dobson TSHon 11-29-2022 TSH 0.204 uIU/mL Critically low 0.358-3.740 [facility] Comment on above: Performed By: #### VERONICA SIERRA #### [facility] [address] [place] [address] Dr. Dandy Dobson CBC AUTO DIFFon 09-14-2022 BASO # 0.0 103/ul Normal 0.0-0.1 [facility] Comment on above: Performed By: #### C BC #### [facility] [address] [place] [address] Dr. Dandy Dobson Basophils/100 WBC (Bld) 0.4 % Normal 0.2-2.0 [facility] Comment on above: Performed By: #### C BC #### [facility] [address] [place] [address] Dr. Dandy Dobson EO # 0.1 103/ul Normal 0.0-0.7 [facility] Comment on above: Performed By: #### C BC #### [facility] [address] [place] [address] Dr. Dandy Dobson Eosinophils/100 WBC (Bld) 2.1 % Normal 0.9-7.0 [facility] Comment on above: Performed By: #### C BC #### [facility] [address] [place] [address] Dr. Dandy Dobson Erythrocyte distribution width (RBC) [Ratio] 13.7 % Normal 11.0-15.0 [facility] Comment on above: Performed By: #### C BC #### [facility] [address] [place] [address] Dr. Dandy Dobson Hematocrit (Bld) [Volume fraction] 38.7 % Normal 36.0-48.0 [facility] Comment on above: Performed By: #### C BC #### [facility] [address] [place] [address] Dr. Dandy Dobson Hemoglobin (Bld) [Mass/Vol] 12.6 g/dL Normal 12.0-16.0 [facility] Comment on above: Performed By: #### C BC #### [facility] [address] [place] [address] Dr. Dandy Dobson IG # 0.01 10e3/ul Normal 0.00-0.03 [facility] Comment on above: Performed By: #### C BC #### [facility] [address] [place] [address] Dr. Dandy Dobson IG % 0.2 % Normal 0.0-0.5 [facility] Comment on above: Performed By: #### C BC #### [facility] [address] [place] [address] Dr. Dandy Dobson LYMPH # 1.6 103/ul Normal 1.2-3.8 [facility] Comment on above: Performed By: #### C BC #### [facility] [address] [place] [address] Dr. Dandy Dobson Lymphocytes/100 WBC (Bld) 27.5 % Normal 20.5-60.0 [facility] Comment on above: Performed By: #### C BC #### [facility] [address] [place] [address] Dr. Dandy Dobson MANUAL DIFF REQ NO Normal [facility] Comment on above: Performed By: #### C BC #### [facility] [address] [place] [address] Dr. Dandy Dobson MCH (RBC) [Entitic mass] 27.1 pg Normal 26.7-34.0 [facility] Comment on above: Performed By: #### C BC #### [facility] [address] [place] [address] Dr. Dandy Dobson MCHC (RBC) [Mass/Vol] 32.6 g/dL Normal 29.9-35.2 [facility] Comment on above: Performed By: #### C BC #### [facility] [address] [place] [address] Dr. Dandy Dobson MCV (RBC) [Entitic vol] 83.2 fL Normal 81.0-99.0 [facility] Comment on above: Performed By: #### C BC #### [facility] [address] [place] [address] Dr. Dandy Dobson MONO # 0.6 103/ul Normal 0.3-0.8 [facility] Comment on above: Performed By: #### C BC #### [facility] [address] [place] [address] Dr. Dandy Dobson Monocytes/100 WBC (Bld) 9.9 % Normal 1.7-12.0 [facility] Comment on above: Performed By: #### C BC #### [facility] [address] [place] [address] Dr. Dandy Dobson NEUT # 3.4 103/ul Normal 1.4-6.5 [facility] Comment on above: Performed By: #### C BC #### [facility] [address] [place] [address] Dr. Dandy Dobson Neutrophils/100 WBC (Bld) 59.9 % Normal 43.0-75.0 [facility] Comment on above: Performed By: #### C BC #### [facility] [address] [place] [address] Dr. Dandy Dobson Platelet mean volume (Bld) [Entitic vol] 9.7 fL Normal 9.5-13.5 [facility] Comment on above: Performed By: #### C BC #### [facility] [address] [place] [address] Dr. Dandy Dobson PLT 230 103/ul Normal 150-450 [facility] Comment on above: Performed By: #### C BC #### [facility] [address] [place] [address] Dr. Dandy Dobson RBC 4.65 106/ul Normal 4.20-5.40 [facility] Comment on above: Performed By: #### C BC #### [facility] [address] [place] [address] Dr. Dandy Dobson WBC 5.6 103/ul Normal 4.0-11.0 [facility] Comment on above: Performed By: #### C BC #### [facility] [address] [place] [address] Dr. Dandy Dobson FERRITINon 09-14-2022 Ferritin [Mass/Vol] 52.0 ng/mL Normal 6.2-137.0 [facility] Comment on above: Performed By: #### V ITB12, IRON, FT4, FERR #### [facility] [address] [place] [address] Dr. Dandy Dobson FREE T4on 09-14-2022 Free T4 [Mass/Vol] 1.69 ng/dL Critically high 0.76-1.46 [facility] Comment on above: Performed By: #### V ITB12, IRON, FT4, FERR #### [facility] [address] [place] [address] Dr. Dandy Dobson GLYCOHEMOGLOBIN A1Con 2022 ADA RECOMMENDATION SEE BELOW Normal [facility] Comment on above: Result Comment: ADA RECOMMENDED LIMIT 4.0 - 6.0 ADA THERAPEUTIC TARGET < 7.0 ACTION SUGGESTED > 7.0 Performed By: #### HELEN SIERRARO #### [facility] [address] [place] [address] Dr. Dandy Dobson Glucose [Mass/Vol] 134 mg/dL Normal [facility] Comment on above: Performed By: #### HELEN SIERRARO #### [facility] [address] [place] [address] Dr. Dandy Dobson HbA1c (Bld) [Mass fraction] 6.3 % Critically high 4.5-6.2 [facility] Comment on above: Performed By: #### Jony HUGHES UMINGRIDRO #### [facility] [address] [place] [address] Dr. Dandy Dobson IRONon 09-14-2022 Iron [Mass/Vol] 42.0 ug/dL Critically low 50.0-170.0 [facility] Comment on above: Performed By: #### V ITB12, IRON, FT4, FERR #### [facility] [address] [address] [address] Dandy Dobson PROF 14(COMP METB)on 023 Albumin [Mass/Vol] 3.8 g/dL Normal 3.4-5.0 [facility] Comment on above: Performed By: #### Jony HUGHES, UMICRO #### [facility] [address] [address] [address] Dandy Dobson Albumin/Globulin [Mass ratio] 1.0 {ratio} Normal [facility] Comment on above: Performed By: #### Jony HUGHES, UMICRO #### [facility] [address] [address] [address] Dandy Dobson ALP [Catalytic activity/Vol] 66 U/L Normal 46-116 [facility] Comment on above: Performed By: #### Jony HUGHES, UMICRO #### [facility] [address] [address] [address] Dandy Dobson ALT [Catalytic activity/Vol] 20 U/L Normal 14-59 [facility] Comment on above: Performed By: #### Jony HUGHES, UMICRO #### [facility] [address] [address] [address] Dandy Dobson Anion gap [Moles/Vol] 11.3 mmol/L Normal [facility] Comment on above: Performed By: #### Jony HUGHES, UMICRO #### [facility] [address] [address] [address] Dandy Dobson AST [Catalytic activity/Vol] 16 U/L Normal 15-37 [facility] Comment on above: Performed By: #### oJny HUGHES, UMICRO #### [facility] [address] [address] [address] Dandy Dobson Bilirubin [Mass/Vol] 0.3 mg/dL Normal 0.2-1.0 [facility] Comment on above: Performed By: #### HELEN SIERRARO #### [facility] [address] [place] [address] Dr. Dandy Dobson Calcium [Mass/Vol] 9.0 mg/dL Normal 8.5-10.1 [facility] Comment on above: Performed By: #### Jony HUGHES UMICRO #### [facility] [address] [place] [address] Dr. Dnady Dobson Chloride [Moles/Vol] 103 mmol/L Normal 98-107 [facility] Comment on above: Performed By: #### Jony HUGHES UMICRO #### [facility] [address] [place] [address] Dr. Dandy Dobson CO2 [Moles/Vol] 28.2 mmol/L Normal 21.0-32.0 [facility] Comment on above: Performed By: #### HELEN SIERRARO #### [facility] [address] [place] [address] Dr. Dandy Dobson Creatinine [Mass/Vol] 0.57 mg/dL Normal 0.55-1.02 [facility] Comment on above: Performed By: #### HELEN SIERRARO #### [facility] [address] [place] [address] Dr. Dandy Dobson EGFR-AF BAHAMIAN >60 Normal >=60 [facility] Comment on above: Performed By: #### HELEN SIERRARO #### [facility] [address] [place] [address] Dr. Dandy Dobson EGFR-NON AF BAHAMIAN >60 Normal >=60 [facility] Comment on above: Performed By: #### ADAMA SIERRAICRO #### [facility] [address] [place] [address] Dr. Dandy Dobson Globulin (S) [Mass/Vol] 3.7 g/dL Normal [facility] Comment on above: Performed By: #### ADAMA SIERRAICRO #### [facility] [address] [place] [address] Dr. Dandy Dobson Glucose [Mass/Vol] 107 mg/dL Critically high 74-106 [facility] Comment on above: Performed By: #### VERONICA SIERRA #### [facility] [address] [place] [address] Dr. Dandy Dobson Potassium [Moles/Vol] 3.5 mmol/L Normal 3.5-5.1 [facility] Comment on above: Performed By: #### HELEN SIERRARO #### [facility] [address] [place] [address] Dr. Dandy Dobson Protein [Mass/Vol] 7.5 g/dL Normal 6.4-8.[address] [facility] Comment on above: Performed By: #### HELEN SIERRARO #### [facility] [address] [place] [address] Dr. Dandy Dobson Sodium [Moles/Vol] 139 mmol/L Normal 136-145 [facility] Comment on above: Performed By: #### HELEN SIERRARO #### [facility] [address] [place] [address] Dr. Dandy Dobson Urea nitrogen [Mass/Vol] 12.0 mg/dL Normal 7.0-18.0 [facility] Comment on above: Performed By: #### HELEN SIERRARO #### [facility] [address] [place] [address] Dr. Dandy Dobson Urea nitrogen/Creatinine [Mass ratio] 21.1 mg/mg Normal [facility] Comment on above: Performed By: #### HELEN SIERRARO #### [facility] [address] [place] [address] Dr. Dandy Dobson TSHon 09-14-2022 TSH 0.015 uIU/mL Critically low 0.358-3.740 [facility] Comment on above: Performed By: #### HELEN SIERRARO #### [facility] [address] [place] [address] Dr. Dandy Dobson VITAMIN B12on 09-14-2022 Cobalamin (Vitamin B12) [Mass/Vol] 485.0 pg/mL Normal 193.0-986.0 [facility] Comment on above: Performed By: #### V ITB12, IRON, FT4, FERR #### [facility] [address] [place] [address] Dr. Dandy Dobson GLYCOHEMOGLOBIN A1Con 2021 ADA RECOMMENDATION SEE BELOW Normal [facility] Comment on above: Result Comment: ADA RECOMMENDED LIMIT 4.0 - 6.0 ADA THERAPEUTIC TARGET < 7.0 ACTION SUGGESTED > 7.0 Performed By: #### A 1C #### [facility] [address] [place] [address] Dr. Dandy Dobson Glucose [Mass/Vol] 143 mg/dL Normal [facility] Comment on above: Performed By: #### A 1C #### [facility] [address] [place] [address] Dr. Dandy Dobson HbA1c (Bld) [Mass fraction] 6.6 % Critically high 4.5-6.2 [facility] Comment on above: Performed By: #### A 1C #### [facility] [address] [place] [address] Dr. Dandy Dobson LIPID PROFILEon 06-09-2022 CHOL-HDL RATIO NORM SEE BELOW Normal [facility] Comment on above: Result Comment: 3.3 - 4.4 LOW RISK 4.4 - 7.1 AVERAGE RISK 7.1 - 11.0 MODERATE RISK >11.0 HIGH RISK Performed By: #### HELEN SIERRARO #### [facility] [address] [place] [address] Dr. Dandy Dobson Cholesterol [Mass/Vol] 138 mg/dL Normal <=200 [facility] Comment on above: Performed By: #### HELEN SIERRARO #### [facility] [address] [place] [address] Dr. Dandy Dobson Cholesterol in HDL [Mass/Vol] 46 mg/dL Normal 40-60 [facility] Comment on above: Performed By: #### HELEN SIERRARO #### [facility] [address] [place] [address] Dr. Dandy Dobson Cholesterol in LDL [Mass/Vol] 62.4 mg/dL Normal [facility] Comment on above: Performed By: #### Jony HUGHES UMICRO #### [facility] [address] [place] [address] Dr. Dandy Dobson Cholesterol.total/Chol esterol in HDL [Mass ratio] 3.0 {ratio} Normal [facility] Comment on above: Performed By: #### Jony HUGHES UMICRO #### [facility] [address] [place] [address] Dr. Dandy Dobson HDL NORMAL > or = 60 mg/dl - LOW CARDIOVASCULAR RISK <40 mg/dl - HIGH CARDIOVASCULAR RISK Normal [facility] Comment on above: Performed By: #### Jony HUGHES UMICRO #### [facility] [address] [place] [address] Dr. Dandy Dobson LDL CALC NORMAL SEE BELOW Normal [facility] Comment on above: Result Comment: <100 mg/dl OPTIMAL 100 - 129 mg/dl NEAR OR ABOVE OPTIMAL 130 - 159 mg/dl BORDERLINE HIGH 160 - 189 mg/dl HIGH >190 mg/dl VERY HIGH Performed By: #### Jony HUGHES UMICRO #### [facility] [address] [place] [address] Dr. Dandy Dobson Triglyceride [Mass/Vol] 148 mg/dL Normal <=150 [facility] Comment on above: Performed By: #### Jony HUGHES UMICRO #### [facility] [address] [place] [address] Dr. Dandy Dobson VLDL CALC 29.6 mg/dL Normal [facility] Comment on above: Performed By: #### Jony HUGHES UMICRO #### [facility] [address] [place] [address] Dr. Dandy Dobson PROF CHEM 8 (BAS METB)on Anion gap [Moles/Vol] 9.4 mmol/L Normal [facility] Comment on above: Performed By: #### Jony HUGHES UMICRO #### [facility] [address] [place] [address] Dr. Dandy Dobson Calcium [Mass/Vol] 8.7 mg/dL Normal 8.5-10.1 [facility] Comment on above: Performed By: #### VERONICA SIERRA #### [facility] [address] [place] [address] Dr. Dandy Dobson Chloride [Moles/Vol] 104 mmol/L Normal 98-107 [facility] Comment on above: Performed By: #### VERONICA SIERRA #### [facility] [address] [place] [address] Dr. Dandy Dobson CO2 [Moles/Vol] 28.8 mmol/L Normal 21.0-32.0 [facility] Comment on above: Performed By: #### VERONICA SIERRA #### [facility] [address] [place] [address] Dr. Dandy Dobson Creatinine [Mass/Vol] 0.67 mg/dL Normal 0.55-1.02 [facility] Comment on above: Performed By: #### HELEN SIERRARO #### [facility] [address] [place] [address] Dr. Dandy Dobson EGFR-AF BAHAMIAN >60 Normal >=60 [facility] Comment on above: Performed By: #### VERONICA SIERRA #### [facility] [address] [place] [address] Dr. Dandy Dobson EGFR-NON AF BAHAMIAN >60 Normal >=60 [facility] Comment on above: Performed By: #### VERONICA SIERRA #### [facility] [address] [place] [address] Dr. Dandy Dobson Glucose [Mass/Vol] 120 mg/dL Critically high 74-106 [facility] Comment on above: Performed By: #### HELEN SIERRARO #### [facility] [address] [place] [address] Dr. Dandy Dobson Potassium [Moles/Vol] 4.2 mmol/L Normal 3.5-5.1 [facility] Comment on above: Performed By: #### HELEN SIERRARO #### [facility] [address] [place] [address] Dr. Dandy Dobson Sodium [Moles/Vol] 138 mmol/L Normal 136-145 [facility] Comment on above: Performed By: #### VERONICA SIERRA #### [facility] [address] [address] [address] Dandy Dobson Urea nitrogen [Mass/Vol] 17.0 mg/dL Normal 7.0-18.0 [facility] Comment on above: Performed By: #### VERONICA SIERRA #### [facility] [address] [address] [address] Dandy Dobson Urea nitrogen/Creatinine [Mass ratio] 25.4 mg/mg Normal [facility] Comment on above: Performed By: #### VERONICA SIERRA #### [facility] [address] [place] [address] Dr. Dandy Dobson MRI BRAIN WO CONon [...] by: MANJU CHAMPAGNE Date: 2022-02-15 16:53 Normal [facility] CHEMISTRYOrdered By: SYSTEM SYSTEM on 02-04-2022 Troponin I.cardiac [Mass/Vol] 4.40 pg/mL Low 10.10 - 27.10 pg/mL FT Remisol Anion gap [Moles/Vol] 12 mmol/L Normal 6 - 16 mEq/L F [facility] Remisol Calcium [Mass/Vol] 8.8 mg/dL Low 8.9 - 11. 1 mg/dL FT [facility] Chloride [Moles/Vol] 102 mmol/L Normal 101 - 1 11 mmol/L FT [facility] CO2 [Moles/Vol] 24 mmol/L Normal 21 - 31 mmol/L FT [facility] Creatinine [Mass/Vol] 0.6 mg/dL Normal 0.5 - 1.3 mg/dL FT Remisol GFR/1.73 sq M.predicted among blacks MDRD (S/P/Bld) [Vol rate/Area] mL/min/1.73 m2 Normal >=59mL/min/1 .73 m2 [facility] Chem S GFR/1.73 sq M.predicted among non-blacks MDRD (S/P/Bld) [Vol rate/Area] mL/min/1.73 m2 Normal >=59mL/min/1 .73 m2 [facility] Chem S Glucose [Mass/Vol] 150 mg/dL Normal [...] 10 - 20 FT Rem[facility] CHEMISTRYOrdered By: Ciraa quintana on 02-04-2022 Natriuretic peptide B (Bld) [Mass/Vol] 33 pg/mL Normal 5 - 80 pg/mL [facility] HemeManSS CHEMISTRYOrdered By: Lab ROP User on 02-04-2022 Glucose [Mass/Vol] 144 mg/dL High 55 - 99 mg/dL [facility] POC Subsection POC Device SN [id number] Invalid Interpretation Code [facility] POC Subsection POC User ID [id number] Invalid Interpretation Code [facility] POC Subsection POC Username RADHA REY Invalid Interpretation Code [facility] POC Subsection COAGULATIONOrdered By: Christina Colindres on 02-04-2022 aPTT Coag (PPP) [Time] 32.0 s Normal 25.1 - 36.5 second(s) [facility] Auto Coag INR Coag (PPP) [Relative time] 1.0 {INR} Invalid Interpretation Code [facility] Auto Coag PT Coag (PPP) [Time] 11.6 s Normal 10.2 - 12.9 second(s) [facility] Auto Coag HEMATOLOGYOrdered By: SYSTEM SYSTEM on [...] (Urine sed) [#/Area] 0-2 /HPF Normal 0-2/HPF [facility] UA Aut o SS Glucose Test strip (U) [Mass/Vol] Negative (02/04/22 7:21 PM) Normal Negative [facility] UA Auto SS Hemoglobin Ql (U) Negative (02/04/22 7:21 PM) Normal Negative [facility] UA Auto SS Ketones (U) [Mass/Vol] Negative (02/04/22 7:21 PM) Normal Negative [facility] UA Auto SS [place].plasma/[place] .RBC (Bld) [Mass ratio] 0-3 /HPF Normal 0-3/HPF [facility] Auto SS Nitrite Ql (U) Negative (02/04/22 7:21 PM) Normal Negative [facility] UA Auto SS pH (U) 7.0 *NA* (02/04/22 7:21 PM) Invalid Interpretation Code 5.0 - 9.0 [facility] UA Auto SS Protein (U) [Mass/Vol] Negative (02/04/22 7:21 PM) Normal Negative [facility] UA Auto SS Specific gravity (U) [Rel density] 1.010 *NA* (02/04/22 7:21 PM) Invalid Interpretation Code 1.005 - 1.030 [facility] UA Auto SS UA Spec Desc Random Urine (02/04/22 7:21 PM) Normal [facility] UA Auto SS Urobilinogen Qn (U) [id number] {Sarahi'U}/dL Normal 0.0 - 1.0 EU/dL [facility] UA Auto SS WBC Auto Ql (U) Negative (02/04/22 7:21 PM) Normal Negative [facility] UA Auto SS WBC LM.HPF (Urine sed) [#/Area] 0-5 /HPF Normal 0-5/HPF [facility] UA Auto SS CBC AUTO DIFFon 12-31-2021 BASO # 0.0 103/ul Normal 0.0-0.1 [facility] Comment on above: Performed By: #### C BC #### [facility] [address] [place] [address] Dandy Dobson Basophils/100 WBC (Bld) 0.2 % Normal 0.2-2.0 [facility] Comment on above: Performed By: #### C BC #### [facility] [address] [place] [address] Dandy Dobson EO # 0.0 103/ul Normal 0.0-0.7 [facility] Comment on above: Performed By: #### C BC #### [facility] [address] [place] [address] Dr. Dandy Dobson Eosinophils/100 WBC (Bld) 0.1 % Critically low 0.9-7.0 [facility] Comment on above: Performed By: #### C BC #### [facility] [address] [place] [address] Dr. Dandy Dobson Erythrocyte distribution width (RBC) [Ratio] 13.9 % Normal 11.0-15.0 [facility] Comment on above: Performed By: #### C BC #### [facility] [address] [place] [address] Dr. Dandy Dobson Hematocrit (Bld) [Volume fraction] 42.7 % Normal 36.0-48.0 [facility] Comment on above: Performed By: #### C BC #### [facility] [address] [place] [address] Dr. Dandy Dobson Hemoglobin (Bld) [Mass/Vol] 13.9 g/dL Normal 12.0-16.0 [facility] Comment on above: Performed By: #### C BC #### [facility] [address] [place] [address] Dr. Dandy Dobson IG # 0.03 10e3/ul Normal 0.00-0.03 [facility] Comment on above: Performed By: #### C BC #### [facility] [address] [place] [address] Dr. Dandy Dobson IG % 0.3 % Normal 0.0-0.5 [facility] Comment on above: Performed By: #### C BC #### [facility] [address] [place] [address] Dr. Dandy Dobson LYMPH # 1.2 103/ul Normal 1.2-3.8 [facility] Comment on above: Performed By: #### C BC #### [facility] [address] [place] [address] Dr. Dandy Dobson Lymphocytes/100 WBC (Bld) 13.5 % Critically low 20.5-60.0 [facility] Comment on above: Performed By: #### C BC #### [facility] [address] [place] [address] Dr. Dandy Dobson MANUAL DIFF REQ NO Normal [facility] Comment on above: Performed By: #### C BC #### [facility] [address] [place] [address] Dr. Dandy Dobson MCH (RBC) [Entitic mass] 27.4 pg Normal 26.7-34.0 [facility] Comment on above: Performed By: #### C BC #### [facility] [address] [place] [address] Dr. Dandy Dobson MCHC (RBC) [Mass/Vol] 32.6 g/dL Normal 29.9-35.2 [facility] Comment on above: Performed By: #### C BC #### [facility] [address] [place] [address] Dr. Dandy Dobson MCV (RBC) [Entitic vol] 84.2 fL Normal 81.0-99.0 [facility] Comment on above: Performed By: #### C BC #### [facility] [address] [place] [address] Dr. Dandy Dobson MONO # 0.4 103/ul Normal 0.3-0.8 [facility] Comment on above: Performed By: #### C BC #### [facility] [address] [place] [address] Dr. Dadny Dobson Monocytes/100 WBC (Bld) 5.0 % Normal 1.7-12.0 [facility] Comment on above: Performed By: #### C BC #### [facility] [address] [place] [address] Dr. Dandy Dobson NEUT # 7.1 103/ul Critically high 1.4-6.5 [facility] Comment on above: Performed By: #### C BC #### [facility] [address] [place] [address] Dr. Dandy Dobson Neutrophils/100 WBC (Bld) 80.9 % Critically high 43.0-75.0 [facility] Comment on above: Performed By: #### C BC #### [facility] [address] [place] [address] Dr. Dandy Dobson Platelet mean volume (Bld) [Entitic vol] 10.4 fL Normal 9.5-13.5 [facility] Comment on above: Performed By: #### C BC #### [facility] [address] [place] [address] Dr. Dandy Dobson PLT 256 103/ul Normal 150-450 [facility] Comment on above: Performed By: #### C BC #### [facility] [address] [place] [address] Dr. Dandy Dobson RBC 5.07 106/ul Normal 4.20-5.40 [facility] Comment on above: Performed By: #### C BC #### [facility] [address] [place] [address] Dr. Dandy Dobson WBC 8.8 103/ul Normal 4.0-11.0 [facility] Comment on above: Performed By: #### C BC #### [facility] [address] [place] [address] Dr. Dandy Dobson PROF CHEM 8 (BAS METB)on Anion gap [Moles/Vol] 11.2 mmol/L Normal [facility] Comment on above: Performed By: #### HELEN SIERRARO #### [facility] [address] [place] [address] Dr. Dandy Dobson Calcium [Mass/Vol] 8.2 mg/dL Critically low 8.5-10.1 [facility] Comment on above: Performed By: #### HELEN SIERRARO #### [facility] [address] [place] [address] Dr. Dandy Dobson Chloride [Moles/Vol] 100 mmol/L Normal 98-107 [facility] Comment on above: Performed By: #### HELEN SIERRARO #### [facility] [address] [place] [address] Dr. Dandy Dobson CO2 [Moles/Vol] 25.5 mmol/L Normal 21.0-32.0 [facility] Comment on above: Performed By: #### VERONICA SIERRA #### [facility] [address] [place] [address] [address] Dandy Dobson Creatinine [Mass/Vol] 0.72 mg/dL Normal 0.55-1.02 [facility] Comment on above: Performed By: #### VERONICA SIERRA #### [facility] [address] [address] [address] Dandy Dobson EGFR-AF BAHAMIAN >60 Normal >=60 [facility] Comment on above: Performed By: #### VERONICA SIERRA #### [facility] [address] [place] [address] Dr. Dandy Dobson EGFR-NON AF BAHAMIAN >60 Normal >=60 [facility] Comment on above: Performed By: #### VERONICA SIERRA #### [facility] [address] [address] [address] Dandy Dobson Glucose [Mass/Vol] 201 mg/dL Critically high 74-106 [facility] Comment on above: Performed By: #### VERONICA SIERRA #### [facility] [address] [place] [address] Dr. Dandy Dobson Potassium [Moles/Vol] 3.7 mmol/L Normal 3.5-5.1 [facility] Comment on above: Performed By: #### VERONICA SIERRA #### [facility] [address] [place] [address] Dr. Dandy Dobson Sodium [Moles/Vol] 133 mmol/L Critically low 136-145 [facility] Comment on above: Performed By: #### VERONICA SIERRA #### [facility] [address] [place] [address] Dr. Dandy Dobson Urea nitrogen [Mass/Vol] 9.0 mg/dL Normal 7.0-18.0 [facility] Comment on above: Performed By: #### VERONICA SIERRA #### [facility] [address] [place], [place] [address] Dr. Dandy Dobson Urea nitrogen/Creatinine [Mass ratio] 12.5 mg/mg Normal [facility] Comment on above: Performed By: #### E VERONICA HUGHES #### [facility] [address] [place], [place] [address] Dr. Dandy Rausch 01-22-2021 CNPN Telephone (NCCAP) APRYL DOWNS ([id number]) 1980 F Date Time Provider Department 01/22/21 [...] schedule. Job Weber APRN.TRESA Barrera [facility] 01/22/2021 10:39 AM Signed Called and spoke with patient. Patient has been scheduled to see Job 01/28 @ 11:00. Patient is aware she will be seeing Job for this appointment. Carla Jacobo Allergies As of Date: 01/22/2021 Noted Allergy Reaction OXYCODONE-ACETAMINOP SERGIO 09/09/2020 2 - Rash Comments: Has tolerated norco in the past Date Reviewed: 01/22/2021 Reviewed by: Job Weber APRN.BAGGAGEMAN - Fully Assessed Reason for Visit: Future [...] 10/02/2020 Heart murmur [R01.1] 10/02/2020 Patient is Restoration [Z78.9] 10/02/2020 Encounter Status:Closed by CARLA SANTIAGO on 01/22/21 [facility] 10-28-2020 CNPN Telephone ([facility]) APRYL DOWNS ([id number]) 1980 F Date Time Provider Department 10/28/20 AYAH MUÑOZ [facility] During your visit today, we recorded the [...] Diagnosis:Excessive bleeding in premenopausal period [N92.4] Order(s):CBC [[facility]] Order #: [id number] FUTURE Prescriptions as of 10/28/2020 Sig: METFORMIN [...] Heart murmur [R01.1] 10/02/2020 More... Patient is Restoration [Z78.9] 10/02/2020 More... Encounter Status:Closed by MARJORIE NOBLES RN on 10/29/20 [facility] 10-06-2020 [facility] Telephone ([id number]) APRYL DOWNS ([id number]) 1980 F Date Time Provider Department 10/06/20 AYAH MUÑOZ [id number] During your visit today, we recorded the following information about you: Yoli Jacobo 10/06/2020 9:46 AM Signed Apryl Downs called today. : 1980 Allergies: Oxycodone-Acetaminop hen (home) [phone] (cell) Reason for call: Patient calling with [...] of provider message. Work release sent via [email or web address]. Pt verbalized understanding. Lana Blackmon RN Allergies [...] Heart murmur [R01.1] 10/02/2020 More... Patient is Restoration [Z78.9] 10/02/2020 More... Letter Text Encounter Status:Closed by LANA BLACKMON RN on 10/06/20 [facility] ANES POSTPROC EVALon 021 ANES POSTPROC EVAL HNO ID: [id number] Author: Naz Caballero Service: Anesthesiology Author Type: Anesthesiologist Type: Anesthesia Postprocedure Evaluation Filed: 10/03/2020 8:32 AM Note Text: POST ANESTHESIA EVALUATION NOTE : 1980 Procedure Summary Date: 10/03/20 Room / Location: OR / OR Anesthesia Start: 741 Anesthesia Stop: [...] further care per PACU/ICU/floor team. SIGNATURE: Naz Cbaallero MD PATIENT NAME: Apryl Downs DATE: October 03, 2020 TIME: 8:32 AM CSN: [id number] [facility] ANES PRE-OPon 10-03-2020 ANES PRE-OP HNO ID: [id number] Author: Naz Caballero Service: Anesthesiology Author Type: [...] October 03, 2020 TIME: 7:02 AM CSN: [id number] [facility] OPERATIVE NOon 10-03-2020 OPERATIVE NO HNO ID: [id number] Author: Ayah Muñoz Service: Gynecology Author Type: Physician Type: Operative Report Filed: 10/03/2020 4:23 PM Note Text: [facility] - Operative Report APRYL DOWNS : 1980 AGE: 40. SEX: F PATIENT TYPE: A HOSP SVC: OBGYN LOCATION: [facility] ATTENDING PHYSICIAN: Ayah Muñoz M.D. CSN NUMBER: [id number] DATE OF SURGERY/PROCEDURE: 10/03/2020 INCISION/PROCEDURE START TIME: 7:57 AM INCISION CLOSE/PROCEDURE END TIME: 8:07 AM PREOPERATIVE DIAGNOSIS: Menorrhagia. POSTOPERATIVE DIAGNOSIS: Menorrhagia. SURGEON: Ayah Muñoz M.D. NETWORK OPERATIONS TECHNICIAN: None. SURGERY/PROCEDURE: Hysteroscopy, Ann endometrial ablation, D [...] x3. ESTIMATED BLOOD LOSS: 5 mL. Ankur Lovett:[id number] /[id number] [facility] SURGICAL PATHOLOGYon 021 SURGICAL PATHOLOGY Specimen [facility] from [facility] Specimen #: [id number] Submitting Physician: AYAH MUÑOZ MD FINAL DIAGNOSIS [...] in five cassettes. Gross examination performed at [facility], [address] [place] [address] 10/03/2020 12:53:09 PM Date of Report: 10/06/2020 Date of Procedure: 10/03/2020 Date of Receipt: 10/03/2020 Submitted by: AYAH MUÑOZ MD Location: [facility] Diagnostic interpretation performed at [place] [address]. CLIA Number: [id number] Normal [facility] Comment on above: Performed By: [...] murmur [R01.1] Heart murmur [R01.1] Patient is Restoration [Z78.9] Allergies: Oxycodone-Acetaminop hen Date Verified: 10/03/20 Lab Values Lab Value Units Date High Low POTA* 4.1 mmol/L 09/19/2020 5.1 3.7 BRISEIDA* 29.5 % 09/24/2020 46.0 36.0 Progress Notes ([facility]): Marjorie Nobles RN 09/25/2020 2:34 [...] PM Signed Pt scheduled for 10/03/20 at [facility] time TBD for Hysteroscopy endometrial ablation DANDC for menorrhagia AND anemia through [facility] today. Pt notified of the all surgery information above. Pt aware that she will require pre op testing prior to surgery and PAT number given to pt to call and schedule. Pt aware PAT needs completed to proceed with surgery. Pt is aware she will need to be at [facility] as instructed by [facility] and no solid food after midnight. The [facility] facility will contact the pt the day [...] for surgical case scheduled for 10/03/20 at [facility], please approve if appropriate. Spoke with pt. Pt aware if she can provider hard copy of positive test then she will not need test but if not she needs to be tested per [facility] surgery scheduling. COVID scheduled for 10/01/20 at 12:30 pm at [facility], pt aware. Progress Notes (BRISEIDA BRITO ): Halima Alvarez 09/24/2020 11:12 AM Signed Pt states that she is very tired and weak. Halima Weber APRN.BAGGAGEMAN 09/26/2020 3:27 PM Signed PATIENT NAME: Apryl [...] deficiency anemia, seen for scheduled follow-up. (Former [facility] patient) INTERIM HISTORY: Apryl Downs returns for [...] on 10/09/2020 for a pelvic ultrasound the frame straightener's office will be calling her to set [...] medications. Continue management per PCP. Job Weber APRN.BAGGAGEMAN [facility] BASIC METABOLIC PANELon Calcium [Mass/Vol] 8.4 mg/dL Low 8.6-10.3 [facility] Comment on above: Order Comment: No: D o not add to previous draw Performed By: #### 3 1079 #### [facility] [address] [place] [address], [facility] Chloride [Moles/Vol] 108 mmol/L High 98-107 [facility] Comment on above: Order Comment: No: D o not add to previous draw Performed By: #### 3 1079 #### [facility] [address] [place] [address], [place] CO2 [Moles/Vol] 25 mmol/L Normal 21-31 [facility] Comment on above: Order Comment: No: D o not add to previous draw Performed By: #### 3 1079 #### [facility] [address] [place] [address], [place] Creatinine [Mass/Vol] 0.45 mg/dL Low 0.60-1.20 [facility] Comment on above: Order Comment: No: D o not add to previous draw Performed By: #### 3 1079 #### [facility] [address] [place] [address], [place] GFR/1.73 sq M predicted among blacks MDRD (S/P/Bld) [Vol rate/Area] mL/min/{1.73_m2} Normal >60 [facility] Comment on above: Order Comment: No: D o not add to previous draw Performed By: #### 3 1079 #### [facility] [address] [place] [address], [facility] GFR/1.73 sq M predicted among non-blacks MDRD (S/P/Bld) [Vol rate/Area] mL/min/{1.73_m2} Normal >60 [facility] Comment on above: Order Comment: No: D o not add to previous draw Performed By: #### 3 1079 #### [facility] [address] [place] [address], [place] Glucose [Mass/Vol] 123 mg/dL High 70-100 [facility] Comment on above: Order Comment: No: D o not add to previous draw Performed By: #### 3 1079 #### [facility] [address] [place] [address], [facility] Potassium [Moles/Vol] 3.7 mmol/L Normal 3.5-5.1 [facility] Comment on above: Order Comment: No: D o not add to previous draw Performed By: #### 3 1079 #### [facility] [address] [place] [address], [facility] Sodium [Moles/Vol] 137 mmol/L Normal 136-145 [facility] Comment on above: Order Comment: No: D o not add to previous draw Performed By: #### 3 1079 #### [facility] [address] [place] [address], [facility] Urea nitrogen [Mass/Vol] 14 mg/dL Normal 7-25 [facility] Comment on above: Order Comment: No: D o not add to previous draw Performed By: #### 3 1079 #### [facility] [address] [place] [address], [facility] CBC COMPLETE BLOOD COUNTon 0 - Erythrocyte distribution width (RBC) [Ratio] 13.4 % Normal 11.5-15.0 [facility] Comment on above: Order Comment: No: D o not add to previous draw Performed By: #### 3 1079 #### [facility] [address] [place] [address], [facility] Hematocrit (Bld) [Volume fraction] 36.6 % Normal 36.0-45.0 [facility] Comment on above: Order Comment: No: D o not add to previous draw Performed By: #### 3 1079 #### [facility] [address] [place] [id number], [facility] Hemoglobin (Bld) [Mass/Vol] 11.7 g/dL Low 12.0-15.0 [facility] Comment on above: Order Comment: No: D o not add to previous draw Performed By: #### 3 1079 #### [facility] [address] [place] [address], [facility] MCH (RBC) [Entitic mass] 29.2 pg Normal 27.0-33.0 [facility] Comment on above: Order Comment: No: D o not add to previous draw Performed By: #### 3 1079 #### [facility] [address] [address], [facility] MCHC (RBC) [Mass/Vol] 32.0 g/dL Normal 32.0-35.0 [facility] Comment on above: Order Comment: No: D o not add to previous draw Performed By: #### 3 1079 #### [facility] [address] [address], [facility] MCV (RBC) [Entitic vol] 91.3 fL Normal 82.0-98.0 [facility] Comment on above: Order Comment: No: D o not add to previous draw Performed By: #### 3 1079 #### [facility] [address] [place] [id number], [facility] Nucleated RBC/100 WBC (Bld) [Ratio] 0 % Normal 0-0 [facility] Comment on above: Order Comment: No: D o not add to previous draw Performed By: #### 3 1079 #### [facility] [address] [place] [address], [facility] PLAT CNT 227 10*3/uL Normal 150-400 [facility] Comment on above: Order Comment: No: D o not add to previous draw Performed By: #### 3 1079 #### [facility] [address] [place] [address], [facility] RBC (Bld) [#/Vol] 4.01 10*6/uL Normal 3.80-5.00 [facility] Comment on above: Order Comment: No: D o not add to previous draw Performed By: #### 3 1079 #### [facility] [address] [place] [id number], [facility] WBC (Bld) [#/Vol] 5.58 10*3/uL Normal 4.00-10.60 [facility] Comment on above: Order Comment: No: D o not add to previous draw Performed By: #### 3 1079 #### [facility] [address] [place] [address], [facility] POC GLUCOSE LABon 04-02-2019 Glucose [Mass/Vol] 135 mg/dL High 70-100 [facility] Comment on above: Performed By: #### 3 1079 #### [facility] [address] [place] [address], [facility] Glucose [Mass/Vol] 124 mg/dL High 70-100 [facility] Comment on above: Performed By: #### 3 1079 #### [facility] [address] [place] [address], [facility] URINALYSIS REFLEXon 04-02-20 19 AMORPHOUS FEW Abnormal NONE SEEN [facility] Comment on above: Order Comment: No: D o not add to previous draw Performed By: #### 3 1079 #### [facility] [address] [place] [address], [facility] Appearance (U) SL CLOUDY Abnormal CLEAR [facility] Comment on above: Order Comment: No: D o not add to previous draw Performed By: #### 3 1079 #### [facility] [address] [place] [address], [place] Bilirubin [Mass/Vol] Negative Normal NEGATIVE [facility] Comment on above: Order Comment: No: D o not add to previous draw Performed By: #### 3 1079 #### [facility] [address] [place] [address], [place] BLOOD LARGE Abnormal NEGATIVE [facility] Comment on above: Order Comment: No: D o not add to previous draw Performed By: #### 3 1079 #### [facility] [address] [place] [address], [place] Color (U) YELLOW Normal YELLOW [facility] Comment on above: Order Comment: No: D o not add to previous draw Performed By: #### 3 1079 #### [facility] [address] [place] [address], [place] EPIS MANY Abnormal FEW,OCC,NONE SEEN [facility] Comment on above: Order Comment: No: D o not add to previous draw Performed By: #### 3 1079 #### [facility] [address] [place] [address], [place] Glucose [Mass/Vol] Negative Normal NEGATIVE [facility] Comment on above: Order Comment: No: D o not add to previous draw Performed By: #### 3 1079 #### [facility] [address] [place] [address], [place] KETONE Negative Normal NEGATIVE [facility] Comment on above: Order Comment: No: D o not add to previous draw Performed By: #### 3 1079 #### [facility] [address] [place] [address], [place] LEUK TITI Negative Normal NEGATIVE [facility] Comment on above: Order Comment: No: D o not add to previous draw Performed By: #### 3 1079 #### [facility] [address] [place] [address], [facility] MUCUS THREADS FEW Abnormal NONE SEEN [facility] Comment on above: Order Comment: No: D o not add to previous draw Performed By: #### 3 1079 #### [facility] [address] [place] [address], [facility] Nitrite Ql (U) Negative Normal NEGATIVE [facility] Comment on above: Order Comment: No: D o not add to previous draw Performed By: #### 3 1079 #### [facility] [address] [place] [address], [facility] pH (Bld) 7.0 Normal 5.0-8.0 [facility] Comment on above: Order Comment: No: D o not add to previous draw Performed By: #### 3 1079 #### [facility] [address] [place] [address], [facility] Protein (U) [Mass/Vol] Negative Normal NEGATIVE Th e [facility] Comment on above: Order Comment: No: D o not add to previous draw Performed By: #### 3 1079 #### [facility] [address] [place] [address], [facility] RBC (U) [#/Vol] 0-2 Abnormal NONE SEEN [facility] Comment on above: Order Comment: No: D o not add to previous draw Performed By: #### 3 1079 #### [facility] [address] [place] [address], [facility] SPEC GRAV 1.017 Normal 1.015-1.020 [facility] Comment on above: Order Comment: No: D o not add to previous draw Performed By: #### 3 1079 #### [facility] [address] [place] [address], [facility] UA COMMENT 2 UROBILINOGEN (E.U./DL) 4.0 Normal [facility] Comment on above: Order Comment: No: D o not add to previous draw Performed By: #### 3 1079 #### [facility] [address] [place] [address], [facility] WBC UA 0-2 Abnormal NONE SEEN [facility] Comment on above: Order Comment: No: D o not add to previous draw Performed By: #### 3 1079 #### [facility] [address] [place] [address], [place] BASIC METABOLIC PANELon 08-0 Calcium [Mass/Vol] 8.6 mg/dL Normal 8.6-10.3 [facility] Comment on above: Order Comment: No: D o not add to previous draw Performed By: #### 4 1000, 60439, 29728 #### [facility] [address] [place] [address], [place] Chloride [Moles/Vol] 107 mmol/L Normal 98-107 [facility] Comment on above: Order Comment: No: D o not add to previous draw Performed By: #### 4 1000, 35339, 93170 #### [facility] [address] [place] [address], [place] CO2 [Moles/Vol] 24 mmol/L Normal 21-31 [facility] Comment on above: Order Comment: No: D o not add to previous draw Performed By: #### 4 1000, 78539, 70275 #### [facility] [address] [place] [address], [place] Creatinine [Mass/Vol] 0.50 mg/dL Low 0.60-1.20 [facility] Comment on above: Order Comment: No: D o not add to previous draw Performed By: #### 4 1000, 61439, 18011 #### [facility] [address] [place] [address], [place] GFR/1.73 sq M predicted among blacks MDRD (S/P/Bld) [Vol rate/Area] mL/min/{1.73_m2} Normal >60 [facility] Comment on above: Order Comment: No: D o not add to previous draw Performed By: #### 4 1000, , 34135 #### [facility] [address] [place] [address], [place] GFR/1.73 sq M predicted among non-blacks MDRD (S/P/Bld) [Vol rate/Area] mL/min/{1.73_m2} Normal >60 [facility] Comment on above: Order Comment: No: D o not add to previous draw Performed By: #### 4 1000, 95388, 71531 #### [facility] [address] [place] [address], [place] Glucose [Mass/Vol] 106 mg/dL High 70-100 [facility] Comment on above: Order Comment: No: D o not add to previous draw Performed By: #### 4 1000, , 87463 #### [facility] [address] [place] [address], [place] Potassium [Moles/Vol] 3.3 mmol/L Low 3.5-5.1 [facility] Comment on above: Order Comment: No: D o not add to previous draw Performed By: #### 4 1000, , 76131 #### [facility] [address] [place] [address], [place] Sodium [Moles/Vol] 139 mmol/L Normal 136-145 [facility] Comment on above: Order Comment: No: D o not add to previous draw Performed By: #### 4 1000, 62674, 84171 #### [facility] [address] [place] [address], [place] Urea nitrogen [Mass/Vol] 11 mg/dL Normal 7-25 [facility] Comment on above: Order Comment: No: D o not add to previous draw Performed By: #### 4 1000, , 04431 #### [facility] [address] [place] [address], [place] CBC COMPLETE BLOOD COUNTon 0 04-01-2019 Erythrocyte distribution width (RBC) [Ratio] 13.5 % Normal 11.5-15.0 [facility] Comment on above: Order Comment: No: D o not add to previous draw Performed By: #### 5 06, 09330 #### [facility] [address] [place] [address], [facility] Hematocrit (Bld) [Volume fraction] 36.7 % Normal 36.0-45.0 [facility] Comment on above: Order Comment: No: D o not add to previous draw Performed By: #### 5 607, 74488 #### [facility] [address] Hemoglobin (Bld) [Mass/Vol] 11.9 g/dL Low 12.0-15.0 [facility] Comment on above: Order Comment: No: D o not add to previous draw Performed By: #### 5 607, 78315 #### [facility] [address] [place] [place] [address], [facility] MCH (RBC) [Entitic mass] 29.0 pg Normal 27.0-33.0 [facility] Comment on above: Order Comment: No: D o not add to previous draw Performed By: #### 5 607, 25034 #### [facility] [address] [place] [address], [facility] MCHC (RBC) [Mass/Vol] 32.4 g/dL Normal 32.0-35.0 [facility] Comment on above: Order Comment: No: D o not add to previous draw Performed By: #### 5 607, 71227 #### [facility] [address] [place] [id number], [facility] MCV (RBC) [Entitic vol] 89.5 fL Normal 82.0-98.0 [facility] Comment on above: Order Comment: No: D o not add to previous draw Performed By: #### 5 0608, 22323 #### [facility] [address] [place] [address], [facility] Nucleated RBC/100 WBC (Bld) [Ratio] 0 % Normal 0-0 [facility] Comment on above: Order Comment: No: D o not add to previous draw Performed By: #### 5 06, 13935 #### [facility] [address] [place] [address], [facility] PLAT CNT 226 10*3/uL Normal 150-400 [facility] Comment on above: Order Comment: No: D o not add to previous draw Performed By: #### 5 06, 50418 #### [facility] [address] [place] [address], [facility] RBC (Bld) [#/Vol] 4.10 10*6/uL Normal 3.80-5.00 [facility] Comment on above: Order Comment: No: D o not add to previous draw Performed By: #### 5 06, 26009 #### [facility] [address] [place] [place] [address], [facility] WBC (Bld) [#/Vol] 7.18 10*3/uL Normal 4.00-10.60 [facility] Comment on above: Order Comment: No: D o not add to previous draw Performed By: #### 5 0608, 57137 #### [facility] [address] CRP HIGH SENSITIVITYon 04-01 HIGH SENSITIVITY CRP 4.39 mg/L Normal [facility] Comment on above: Order Comment: No: D o not add to previous draw Result Comment: HIGH SENSITIVITY CRP (hs_CRP) REFERENCE RANGES Less than 1.0 mg/L: lowest tertile, lowest risk 1.0-3.0 mg/L: middle tertile, average risk Greater than 3.0 mg/L: highest tertile, highest risk Performed By: #### 3 1079 #### [facility] [address] BRAIN WO CONTRASTon 04-01 CT BRAIN WO CONTRAST [facility] Department of Radiology [address] [place] [id number] Patient Name: APYRL DOWNS : 1980 Sex: F Age: Race: Other Pt. Location: [id number] Patient Status: I Ordered Date: 04/01/2019 3:00:00 [...] findings. Electronically signed by:Alice Coello. Transcribed by: [email or web address], User Resident: RYAN GONZALEZ Electronically Signed by: ALICE COELLO @ 04/02/2019 08:59 AM I personally read this/these film(s) with this resident Normal [facility] Comment on above: Order Comment: No: D o not add to previous draw MAGNESIUM BLOODon 04-01-2019 Magnesium [Mass/Vol] 2.2 mg/dL Normal 1.9-2.7 [facility] Comment on above: Order Comment: No: D o not add to previous draw Performed By: #### 4 1000, 55520, 42918 #### [facility] [address] [place] [address], [facility] PHOSPHORUS BLOODon 9 Phosphate [Mass/Vol] 3.9 mg/dL Normal 2.5-5.0 [facility] Comment on above: Order Comment: No: D o not add to previous draw Performed By: #### 4 1000, 96399, 41630 #### [facility] [address] [place] [address], [facility] POC GLUCOSE LABon 04-01-2019 Glucose [Mass/Vol] 120 mg/dL High 70-100 [facility] Comment on above: Performed By: #### 3 1079 #### [facility] [address] [place] [address], [facility] SEDIMENTATION RATEon 019 SED RATE 23 mm/hr High 0-20 [facility] Comment on above: Order Comment: No: D o not add to previous draw Performed By: #### 5 0608, 18335 #### [address] BRAIN PERFUSIONon 019 CT BRAIN PERFUSION [facility] Department of Radiology [address] [place] [id number] Patient Name: APRYL DOWNS : 1980 [...] FINDINGS: Please see report for dictation number [id number] CTA neck CTA brain and perfusion were all dictated together Electronically signed by:Etta Cartwright. Transcribed by: [email or web address], User Resident: Electronically Signed by: ETTA CARTWRIGHT @ 04/09/2019 10:35 AM Normal [facility] Comment on above: Order Comment: No: D o not add to previous draw CTA NECKon 03-31-2019 CTA NECK [facility] Department of Radiology [address] [place] [phone] Patient Name: APRYL DOWNS : 1980 [...] abnormality Electronically signed by:Etta Cartwright. Transcribed by: [email or web address], User Resident: Electronically Signed by: ETTA CARTWRIGHT @ 03/31/2019 04:31 PM Normal [facility] Comment on above: Order Comment: Strok e transfer, lt side weakness MRI BRAIN W WO CONTRASTon MRI BRAIN W WO CONTRAST [facility] Department of Radiology [address] [place] [phone] Patient Name: APRYL DOWNS : 1980 Sex: F Age: Race: Other Pt. Location: [id number] Patient Status: I Ordered Date: 03/31/2019 4:10:00 [...] findings. Electronically signed by:Etta Cartwright. Transcribed by: [email or web address], User Resident: VICKIE VUONG Electronically Signed by: ETTA CARTWRIGHT @ 04/01/2019 09:56 AM I personally read this/these film(s) with this resident Normal [facility] Comment on above: Order Comment: R/O C [facility] MRI CERVICAL SPINE W WO CONT [facility] 03-31-2019 MRI CERVICAL SPINE W WO CONTRAST [facility] Department of Radiology [address] [place] [phone] Patient Name: APRYL DOWNS : 1980 Sex: F Age: Race: Other Pt. Location: [place] [address] Patient Status: I Ordered Date: 03/31/2019 4:05:00 [...] findings. Electronically signed by:Etta Cartwright. Transcribed by: [email or web address], User Resident: VIKCIE VUONG Electronically Signed by: ETTA CARTWRIGHT @ 04/01/2019 09:53 AM I personally read this/these film(s) with this resident Normal [facility] Comment on above: Order Comment: R/O C ord Compression POC GLUCOSE LABon 03-31-2019 Glucose [Mass/Vol] 118 mg/dL High 70-100 [facility] Comment on above: Performed By: #### 8 5499 #### [facility] [address] [place] [address], [facility] TOX PANEL URINEon 03-31-2019 50 THC Negative Normal NEGATIVE [facility] Comment on above: Order Comment: No: D o not add to previous draw Performed By: #### 3 1079 #### [facility] [address] [place] [place] [address], [facility] BARBITURATES Negative Normal NEGATIVE [facility] Comment on above: Order Comment: No: D o not add to previous draw Performed By: #### 3 1079 #### [facility] [address] [address], [facility] Benzodiazepines Ql (U) Negative Normal NEGATIVE Th e [facility] Comment on above: Order Comment: No: D o not add to previous draw Performed By: #### 3 1079 #### [facility] [address] [place] [address], [facility] Cocaine Ql (U) Negative Normal NEGATIVE [facility] Comment on above: Order Comment: No: D o not add to previous draw Performed By: #### 3 1079 #### [facility] [address] [place] [address], [facility] Methadone Ql (U) Negative Normal NEGATIVE [facility] Comment on above: Order Comment: No: D o not add to previous draw Performed By: #### 3 1079 #### [facility] [address] [place] [address], [facility] MONO AMPHET Negative Normal NEGATIVE [facility] Comment on above: Order Comment: No: D o not add to previous draw Performed By: #### 3 1079 #### [facility] [address] [place] [address], [facility] Opiates Ql (U) Negative Normal NEGATIVE [facility] Comment on above: Order Comment: No: D o not add to previous draw Performed By: #### 3 1079 #### [facility] [address] [place] [address], [place] Phencyclidine Ql (U) Negative Normal NEGATIVE [facility] Comment on above: Order Comment: No: D o not add to previous draw Performed By: #### 3 1079 #### [facility] [address] [place] [address], [place] PROPOXYPHENE Negative Normal NEGATIVE [facility] Comment on above: Order Comment: No: D o not add to previous draw Performed By: #### 3 1079 #### [facility] [address] [place] [address], [place] TRICYCLICS Negative Normal NEGATIVE [facility] Comment on above: Order Comment: No: D o not add to previous draw Performed By: #### 3 1079 #### [facility] [address] [place] [address], [facility] Vital Signs Date Time Vital Sign Value Performing Clinician Facility 02-19-2025 12:12-0400 Body height 162.6 cm Earnest Salomon DPM [facility] Work Phone: [facility] 02-19-2025 12:12-0400 Body mass index (BMI) [Ratio] 32.79 kg/m2 Earnest Salomon DPM [facility] Work Phone: [facility] 02-19-2025 12:12-0400 Body weight 86.64 kg Earnest Dolce DPM [facility] Work Phone: [facility] 02-19-2025 12:12-0400 Diastolic blood pressure 77 mm[Hg] Earnest Dolce DPM [facility] Work Phone: [facility] 02-19-2025 12:12-0400 Heart rate 72 /min Earnest Dolce DPM [facility] Work Phone: [facility] 02-19-2025 12:12-0400 Systolic blood pressure 129 mm[Hg] Earnest Dolce DPM [facility] Work Phone: [facility] 01-23-2025 16:00-0400 Body height 162.6 cm Earnest Dolce DPM [facility] Work Phone: [facility] 01-23-2025 16:00-0400 Body mass index (BMI) [Ratio] 32.61 kg/m2 Earnest Dolce DPM [facility] Work Phone: [facility] 01-23-2025 16:00-0400 Body weight 86.18 kg Earnest Dolce DPM [facility] Work Phone: [facility] 01-23-2025 16:00-0400 Diastolic blood pressure 75 mm[Hg] Eranest Dolce DPM [facility] Work Phone: [facility] 01-23-2025 16:00-0400 Heart rate 71 /min Earnest Dolce DPM [facility] Work Phone: [facility] 01-23-2025 16:00-0400 Systolic blood pressure 128 mm[Hg] Earnest Dolce DPM [facility] Work Phone: [facility] 01-15-2025 11:15-0400 Body height 162.6 cm Earnest Dolce DPM [facility] Work Phone: [facility] 01-15-2025 11:15-0400 Body mass index (BMI) [Ratio] 32.61 kg/m2 Earnest Dolce DPM [facility] Work Phone: [facility] 01-15-2025 11:15-0400 Body weight 86.18 kg Earnest Dolce DPM [facility] Work Phone: [facility] 01-15-2025 11:15-0400 Diastolic blood pressure 77 mm[Hg] Earnest Dolce DPM [facility] Work Phone: [facility] 01-15-2025 11:15-0400 Heart rate 70 /min Earnest Dolce DPM [facility] Work Phone: [facility] 01-15-2025 11:15-0400 Systolic blood pressure 125 mm[Hg] Earnest Dolce DPM [facility] Work Phone: [facility] 01-02-2025 12:07-0400 Body height 162.6 cm Earnest Dolce DPM [facility] Work Phone: [facility] 01-02-2025 12:07-0400 Body mass index (BMI) [Ratio] 32.61 kg/m2 Earnest Dolce DPM [facility] Work Phone: [facility] 01-02-2025 12:07-0400 Body weight 86.18 kg Earnest Dolce DPM [facility] Work Phone: [facility] 01-02-2025 12:07-0400 Diastolic blood pressure 75 mm[Hg] Earnest Dolce DPM [facility] Work Phone: [facility] 01-02-2025 12:07-0400 Heart rate 72 /min Earnest Dolce DPM [facility] Work Phone: [facility] 01-02-2025 12:07-0400 Systolic blood pressure 124 mm[Hg] Earnest Dolce DPM [facility] Work Phone: [facility] 12-04-2024 10:43-0400 Body height 162.6 cm Earnest Dolce DPM [facility] Work Phone: [facility] 12-04-2024 10:43-0400 Body mass index (BMI) [Ratio] 32.61 kg/m2 Earnest Dolce DPM [facility] Work Phone: [facility] 12-04-2024 10:43-0400 Body weight 86.18 kg Earnest Salomon DPM [facility] Work Phone: [facility] 12-04-2024 10:43-0400 Diastolic blood pressure 77 mm[Hg] Earnest Salomon DPM [facility] Work Phone: [facility] 12-04-2024 10:43-0400 Heart rate 74 /min Earnest Salomon DPM [facility] Work Phone: [facility] 12-04-2024 10:43-0400 Systolic blood pressure 122 mm[Hg] Earnest Salomon DPM [facility] Work Phone: [facility] 10-04-2024 11:39-0500 Body height 161.29 cm [facility] 10-04-2024 11:39-0500 Body mass index (BMI) [Ratio] 31.8 kg/m2 [facility] 10-04-2024 11:39-0500 Body weight 83 kg [facility] 10-04-2024 11:39-0500 Diastolic blood pressure 84 mm[Hg] [facility] 10-04-2024 11:39-0500 Heart rate 78 /min [facility] 10-04-2024 11:39-0500 Systolic blood pressure 140 mm[Hg] [facility] 09-24-2024 16:01-0500 Body height 162.6 cm Earnest Salomon DPM [facility] Work Phone: [facility] 09-24-2024 16:01-0500 Body mass index (BMI) [Ratio] 32.61 kg/m2 Earnest Salomon DPM [facility] Work Phone: [facility] 09-24-2024 16:01-0500 Body weight 86.18 kg Earnest Salomon DPM [facility] Work Phone: [facility] 09-24-2024 16:01-0500 Diastolic blood pressure 74 mm[Hg] Earnest Salomon DPM [facility] Work Phone: [facility] 09-24-2024 16:01-0500 Heart rate 74 /min Earnest Salomon DPM [facility] Work Phone: [facility] 09-24-2024 16:01-0500 Systolic blood pressure 118 mm[Hg] Earnest Aime DPM [facility] Work Phone: [facility] 09-10-2024 14:15-0500 Body height 162.6 cm Earnest Aime DPM [facility] Work Phone: [facility] 09-10-2024 14:15-0500 Body mass index (BMI) [Ratio] 32.61 kg/m2 Earnest Aime DPM [facility] Work Phone: [facility] 09-10-2024 14:15-0500 Body weight 86.18 kg Earnest Aime DPM [facility] Work Phone: [facility] 09-10-2024 14:15-0500 Diastolic blood pressure 72 mm[Hg] Earnest Salomon DPM [facility] Work Phone: [facility] 09-10-2024 14:15-0500 Heart rate 70 /min Earnest Aime DPM [facility] Work Phone: [facility] 09-10-2024 14:15-0500 Systolic blood pressure 115 mm[Hg] Earnest Aime DPM [facility] Work Phone: [facility] 06-14-2024 13:32-0400 Body height 161.29 cm [facility] 06-14-2024 13:32-0400 Body mass index (BMI) [Ratio] 34.7 kg/m2 [facility] 06-14-2024 13:32-0400 Body weight 90.26 kg [facility] 06-14-2024 13:32-0400 Diastolic blood pressure 97 mm[Hg] [facility] 06-14-2024 13:32-0400 Heart rate 76 /min [facility] 06-14-2024 13:32-0400 Systolic blood pressure 165 mm[Hg] [facility] 03-19-2024 10:53-0400 Body height 161.29 cm [facility] 03-19-2024 10:53-0400 Body mass index (BMI) [Ratio] 34.5 kg/m2 [facility] 03-19-2024 10:53-0400 Body weight 89.81 kg [facility] 06-14-2023 10:30-0400 Body height 161.29 cm Amanda Villafana Other [facility] [employer] Other 06-14-2023 10:30-0400 Body mass index (BMI) [Ratio] 33.13 kg/m2 Amanda Villafana Other [facility] [employer] Other 06-14-2023 10:30-0400 Body weight 86.18 kg Amanda Villafana Other [facility] [employer] Other 06-14-2023 10:30-0400 Diastolic blood pressure 84 mm[Hg] Amanda Villafana Other [facility] [employer] Other 06-14-2023 10:30-0400 Systolic blood pressure 129 mm[Hg] Amanda Villafana Other [facility] [employer] Other 02-04-2022 21:00-0400 Diastolic blood pressure 95 mm[Hg] Pete Maldonado [facility] 02-04-2022 21:00-0400 Heart rate 78 /min Pete Maldonado [facility] 02-04-2022 21:00-0400 Hourly Rounding Pete Maldonado [facility] 02-04-2022 21:00-0400 Mean blood pressure 126 mm[Hg] Pete Joel [facility] 02-04-2022 21:00-0400 Promise to Return Pete Maldonado [facility] 02-04-2022 21:00-0400 Respiratory rate 14 /min Pete Maldonado [facility] 02-04-2022 21:00-0400 SaO2% (BldA) [Mass fraction] 99 % Pete Joel [facility] 02-04-2022 21:00-0400 Systolic blood pressure 189 mm[Hg] Pete Joel [facility] 02-04-2022 20:00-0400 Diastolic blood pressure 94 mm[Hg] Pete Joel [facility] 02-04-2022 20:00-0400 Heart rate 77 /min Pete Joel [facility] 02-04-2022 20:00-0400 Mean blood pressure 125 mm[Hg] Pete Joel [facility] 02-04-2022 20:00-0400 Systolic blood pressure 187 mm[Hg] Pete Joel [facility] 02-04-2022 19:00-0400 Diastolic blood pressure 85 mm[Hg] Pete Joel [facility] 02-04-2022 19:00-0400 Heart rate 74 /min Pete Joel [facility] 02-04-2022 19:00-0400 Mean blood pressure 114 mm[Hg] Pete Joel [facility] 02-04-2022 19:00-0400 Respiratory rate 11 /min Pete Joel [facility] 02-04-2022 19:00-0400 SaO2% (BldA) [Mass fraction] 97 % Pete Joel [facility] 02-04-2022 19:00-0400 Systolic blood pressure 172 mm[Hg] Pete Joel [facility] 02-04-2022 18:22-0400 gluc 146 mg/dL Pete Joel [facility] 02-04-2022 18:22-0400 gluc Pete Joel [facility] 02-04-2022 17:55-0400 Body temperature 98.24 [degF] Pete Maldonado [facility] 02-04-2022 17:55-0400 Heart rate 76 /min Pete Maldonado [facility] 02-04-2022 17:55-0400 Respiratory rate 18 /min Pete Maldonado [facility] Encounters Encounter Date Encounter Type Care Provider Facility Start: 03-26-2025 ambulatory TRESA TUTTLE Facility:[facility] Start: 03-15-2025 ambulatory Connerkonradroger Syed Facility :[facility] Start: 02-19-2025 End: 02-19-2025 Bamboo flowsheet Earnest [...] End: 01-22-2025 Emergency department patient visit Pedro Syed [facility] Start: 01-15-2025 End: 01-15-2025 Bamboo flowsheet Earnest D Dolce DPM [facility] Work Phone: [facility] Start: 01-15-2025 End: 01-15-2025 Bamboo flowsheet Earnest D Dolce DPM [facility] Work Phone: [facility] Start: 01-15-2025 End: 01-15-2025 ambulatory EARNEST D DOLCE Not Available Start: 01-15-2025 End: 01-15-2025 Patient [...] Earnest D Dolce DPM [facility]AC[facility]AS Work Phone: [facility] External Department Unsolicited Start: 01-02-2025 End: 01-02-2025 ambulatory EARNEST D DOLCE Not Available Start: 01-02-2025 End: 01-02-2025 Office outpatient visit 25 minutes Earnest D Dolce DPM [facility] Work Phone: [facility] Comment on above: Hallux valgus of lef t foot (Primary Dx); Plantar fasciitis Start: 12-24-2024 End: 12-24-2024 Clinisync Result Encounter Earnest D Dolce DPM [facility] Work Phone: [facility] External Department Unsolicited Start: 12-24-2024 End: 12-24-2024 Clinisync Result Encounter Earnest D Dolce DPM [facility] Work Phone: [facility] External Department Unsolicited Start: 12-04-2024 End: 12-04-2024 [...] Not Available Start: 10-04-2024 End: 10-04-[address] [facility] Work Phone: Start: 10-04-2024 End: 10-04-2024 Patient encounter procedure [facility] Work Phone: Start: 09-24-2024 End: 09-24-2024 ambulatory [...] lower extremity Start: 07-06-2024 Non-patient / Non-visit [facility] Work Phone: Start: 06-14-2024 End: 06-14-[address] [facility] Work Phone: Start: 06-14-2024 End: 06-14-2024 Patient encounter procedure [facility] Work Phone: Start: 03-19-2024 End: 03-19-[address] [facility] Work Phone: Start: 03-19-2024 End: 03-19-2024 Patient encounter procedure [facility] Work Phone: Start: 03-14-2024 Non-patient / Non-visit [facility] [facility] Work Phone: Start: 01-09-2024 ambulatory Coates Start: 09-26-2023 End: 09-26-2023 ambulatory Amanda Villafana Other [facility] Other Start: 09-26-2023 Telephone encounter Amanda Khalida [facility] Start: 08-04-2023 End: 08-04-2023 ambulatory Amanda Khalida Other [facility] Other Start: 08-04-2023 Telephone encounter Amanda Khalida [facility] Start: 07-05-2023 End: 07-05-2023 ambulatory Amanda Khalida Other [facility] Other Start: 07-05-2023 Telephone encounter Amanda Khalida [facility] Start: 06-28-2023 End: 06-28-2023 ambulatory Amanda Khalida Other [facility] Other Start: 06-28-2023 Telephone encounter Amanda Villafana [facility] Start: 06-27-2023 End: 06-27-2023 ambulatory Amanda Khalida Other [facility] Other Start: 06-27-2023 Telephone encounter Amanda Khalida [facility] Start: 06-23-2023 End: 06-23-2023 ambulatory Amanda Villafana Other [facility] Other Start: 06-23-2023 Telephone encounter Amanda Khalida [facility] Start: 06-14-2023 End: 06-14-2023 ambulatory Amanda Khalida Other [facility] Other Start: 06-14-2023 Office outpatient vi sit 15 minutes Amanda Khalida [facility] Start: 05-31-2023 End: 05-31-2023 ambulatory Amanda Khalida Other [facility] Other Start: 05-31-2023 Telephone encounter Amanda Khalida [facility] Start: 03-08-2023 End: 03-08-2023 Patient encounter procedure SAMANTA COTA [facility] Start: 12-13-2022 End: 12-22-2022 Pre-admission assessment SAMANTARadha TURNERZ [facility] Start: 12-12-2022 End: 12-12-2022 ambulatory BAGGAGEMAN SAMANTA AICHHOLZ Facility:H1 Start: 11-29-2022 End: 11-30-2022 ambulatory BAGGAGEMAN SAMANTA AICHHOLZ Facility:H1 Start: 10-13-2022 ambulatory BAGGAGEMAN SAMANTA AICHHOLZ Facil ity:H1 Start: 09-14-2022 End: 09-15-2022 ambulatory BAGGAGEMAN SAMANTA AICHHOLZ Facility:H1 Start: 06-09-2022 End: 06-10-2022 ambulatory BAGGAGEMAN SAMANTA AICHHOLZ Facility:H1 Start: 05-06-2022 End: 05-26-2022 Pre-admission assessment SAMANTA J JANNYHHOLZ [facility] Start: 02-15-2022 End: 02-16-2022 ambulatory BAGGAGEMAN SAMANTA AICHHOLZ Facility:H1 Start: 02-04-2022 End: 02-04-2022 Emergency department patient visit Pete Joel [facility] Start: 12-31-2021 End: 12-31-2021 ambulatory BAGGAGEMAN SAMANTA COTA Facility: Start: 03-31-2019 End: 04-02-2019 Evaluation and management of inpatient PROVIDER UNKNOWN Facility:[facility] Procedures Date Procedure Procedure Detail [...] Phone: section Pete Maldonado section Pete Maldonado section Pedro lui Endometrial ablation Pedro Syed H/O: tubal ligation Pete Nunez zakiya Plan of Treatment Date Care Activity Detail Author Start: 02-19-2025 End: 02-19-2025 Patient encounter procedure [facility] Comment on above: Arrived Start: 02-05-2025 End: 02-05-2025 Patient encounter procedure 02/05/2025 11:40 AM EDT Office Visit [facility] [address] [place] [address] Earnest Salomon, DPM FACFAS [address] [place] [address] [facility] Start: 01-23-2025 End: 01-23-2025 Patient encounter procedure 01/23/2025 3:30 PM EDT Office Visit [facility] [address] [place] [address] Earnest Salomon, DPM FACFAS [address] [place] [address] [facility] Start: 01-15-2025 End: 01-15-2025 Patient encounter procedure 01/15/2025 10:30 AM EDT Office Visit [facility] [address] [place] [address] Earnest Salomon, DPM FACFAS [address] [facility] [place] [address] [facility] Start: 01-02-2025 End: 01-02-2025 Patient encounter procedure 01/02/2025 10:40 AM EDT Office Visit [facility] [address] [place] [address] Earnest Salomon, DPM FACFAS [address] [facility] [place] [address] [facility] Start: 12-04-2024 End: 12-04-2024 Clinical Support 12/04/2024 9:50 AM EDT Clinical Support [facility] [address] [place] [address] Earnest Salomon, DPM FACFAS [address] [facility] [place] [address] Arrived [facility] Comment on above: Arrived Start: 10-15-2024 End: 10-15-2024 Clinical Support 10/15/2024 3:00 PM EST Clinical Support [facility] [address] [place] [address] Earnest Salomon, DPM FACFAS [address] [place] [address] [facility] Start: 04-29-2024 Influenza vaccination Influenza Vacc ine (#1) [facility] Start: 2018 Screening for malign ant neoplasm of breast Mammogram [facility] Start: 10-27-2016 Screening for malign ant neoplasm of cervix [facility] Start: 1997 Urine screening for protein Diabetes: Urine Protein Screening [facility] Start: 1988 Glaucoma screening Diabetes: R etinopathy Screening [facility] Start: 1978 Hemoglobin A1c measurement Diabetes: Hemoglobin A1C [facility] Start: 1978 Screening for malign ant neoplasm of colon [facility] XR Foot - left 3 Views XR foot 3 + views left Imaging Routine Hallux valgus of left foot Ordered: 01/02/2025 [facility] Work Phone: Comment on above: Ordered: 01/02/2025 XR Foot - left GE 3 Views [facility] Immunizations Immunization Date Immunization Notes Care Provider Fa cility NEGATED: Highlighted row has not occurred!08-15-2023 influenza virus vaccine, unspecified formulation Pedro Syed [facility] [place] Payers Date Payer Category Payer Medicaid [id number] 2022 Private Health Insurance [facility] MEDICA[facility] [id number] 1978 Unknown [id number] 2.16840.1.367049.3.579.2. 647 1978 Unknown [id number] 2.16840.1.661330.3.579.2. 593 1978 Unknown [id number] 2.840.1.563231.3.579.2. 593 1978 Unknown [id number] 2.840.1.461285.3.579.2. 593 1978 Unknown [id number] 2.840.1.198542.3.579.2. 593 1978 Unknown [id number] 2.16840.1.720653.3.579.2. 593 1978 Unknown [id number] 2.840.1.227231.3.579.2. 593 1978 Unknown [id number] 2.16840.1.690839.3.579.2. 593 1978 Unknown [id number] 2.840.1.986760.3.579.2. 1259 1978 Unknown [id number] 2.16840.1.939551.3.579.2. 1259 1978 Unknown [id number] 2.16840.1.224276.3.579.2. 1259 1978 Unknown [id number] 2.16840.1.022877.3.579.2. 1259 1978 Unknown [id number] 2.16840.1.301217.3.579.2. 1259 1978 Unknown [id number] 2.16.840.1.493898.3.579.2. 1259 1978 Unknown [id number] 2.16.840.1.435605.3.579.2. 9 1978 Unknown [id number] 2.16.840.1.153657.3.579.2. 9 1978 Unknown [id number] 2.16.840.1.014887.3.579.2. 9 1978 Unknown [id number] 2.16.840.1.844008.3.579.2. 9 1978 Unknown [id number] 2.16.840.1.794388.3.579.2. 9 1978 Unknown [id number] 2.16.840.1.855657.3.579.2. 9 1978 Unknown [id number] 2.16.840.1.641557.3.579.2. 727 1978 Unknown [id number] 2.16.840.1.475827.3.579.2. 727 1978 Unknown [id number] 2.16.840.1.983455.3.579.2. 727 1959 Unknown [id number] 1959 Unknown [id number] Unknown [facility] [id number] Social History Date Type Detail Facility Tobacco Unknown if ever smoked [facility] Comment on above: denies Start: 09-10-2024 End: 02-19-2025 Sex Assigned At Female [facility] Tobacco smoking status [facility] Start: 06-14-2023 End: 01-21-2025 Tobacco smoking status IDIS Ex-smoker (finding) [facility] Start: 1980 Sex Assigned At Female F [facility] consumption unknown [facility] Start: 1980 Sex assigned at Not on file [facility] Start: 09-10-2024 Tobacco smoking stat us IDIS Never smoked tobacco [facility] Work Phone: Start: 09-10-2024 Tobacco use and exposure Smokeless tobacco non-user [facility] Start: 09-10-2024 End: 02-19-2025 Alcoholic beverage intake Defer [facility] Start: 09-10-2024 End: 02-19-2025 History of Social function [facility] Start: 12-10-2009 End: 10-04-2024 Sex Female (finding) [facility] Clinical Notes 11-07-2020 to 02-19-2025 Earnest Salomon DPM FACFAS - 02/19/2025 11:50 AM EDTMarc Michel Salomon, MANUEL FACFAS - 02/05/2025 11:40 AM EDTMarc Michel Salomon, DPStu FACFAS - 01/23/2025 3:30 PM EDT Note [...] Ambulatory Problems Diagnosis Date Noted Engages in evangelical activities 10/02/2020 Endogenous hyperlipemia 10/02/2020 Heart murmur 10/02/2020 History of section 09/19/2020 Hypothyroidism 10/02/2020 Iron deficiency anemia due to chronic blood loss 09/09/2020 (spontaneous vaginal delivery) ([facility]) 09/19/2020 Systolic murmur 10/02/2020 Resolved Ambulatory Problems [...] < 3 seconds Digits 1-5 bilateral NEURO: Early Lupe 5.07 monofilament was intact B/L. Vibratory [...] Patient is doing very well educated on zvjyt-so-qkjpig exercises due with a surgical boot for 2 more weeks she is progressing well I did dispensed Tubigrip to her today she is to elevate and ice follow up with me in 2 weeks for reassessment. MANUEL Wasserman documented in this encounter [facility] 02-05-2025 History of Presen t illness Narrative [...] Ambulatory Problems Diagnosis Date Noted Engages in evangelical activities 10/02/2020 Endogenous hyperlipemia (CMS/HCC) 10/02/2020 Heart [...] < 3 seconds Digits 1-5 bilateral NEURO: Early Lupe 5.07 monofilament was intact B/L. Vibratory [...] Patient is doing very well educated on odwyr-bd-ikijju exercises due with a surgical boot for 2 more weeks she is progressing well I did dispensed Tubigrip to her today she is to elevate and ice follow up with me in 2 weeks for reassessment MANUEL Wasserman documented in this encounter [facility] 01-23-2025 History of Presen t illness Narrative [...] Ambulatory Problems Diagnosis Date Noted Engages in evangelical activities 10/02/2020 Endogenous hyperlipemia ([facility]/HCC) 10/02/2020 Heart murmur 10/02/2020 History of section [...] < 3 seconds Digits 1-5 bilateral NEURO: Early Lupe 5.07 monofilament was intact B/L. Vibratory [...] Patient is doing very well educated on idqpv-rh-vwyrzc exercises I removed the sutures today see continue with a pneumatic walking boot follow up with me in 2 weeks for x-rays dressing very well MANUEL Wasserman documented in this encounter [facility] 01-22-2025 Hospital Discharg e instructions Patient Education 01/22/2025 00:38:41 Migraine Headache, Bijc-kr-Mmgz Migraine Headache A migraine headache is a [...] Follow these instructions at home: Medicines Take mfxf-cow-wavasys and prescription medicines only as told by [...] for Headache and Migraine Patients (CHAMP): [email or web address].org [place] Migraine Foundation: americanmigrainefoundation.org National Headache Foundation: headaches.org [...] provider. Document Revised: 04/11/2023 Document Reviewed: 04/11/2023 Vendor Registry Patient Education 2023 [employer]. Follow Up Care 01/21/2025 22:31:46 With:Brigido Fisher Address: [address], [place] [address]- Business (1) When:01/25/2025 Comments:You can use the Zofran every 6 hours as needed for nausea and vomiting. Please follow-up with your primary care doctor and neurology for further evaluation management of your symptoms. Please return to the ED for any new or worsening symptoms. With:AMANDA VILLAFANA Address: [address] [place] [address]- Business (1) When:Within 3 Day(s) [facility] 01-22-2025 Note ED Patient Education Note [...] these instructions at home: Medicines ??? Take yajq-zed-mkceokn and prescription medicines only as told by [...] Headache and Migraine Patients (CHAMP): headachemigraine.org ??? [place] Migraine Foundation: americanmigrainefoundation.org ??? National Headache Foundation: [...] given to yo (more content not included)... [facility] 01-21-2025 Evaluation + Plan note Extrac [...] q6hr, # 12 tab(s), Refills(s) 0, Pharmacy: [facility]/pharmacy #[id number], 162, cm, 01/21/25 22:41:00 EDT, Height/Length Dosing, 94.6, kg, 01/21/25 22:41:00 EDT, Weight Dosing Sodium Chloride 0.9% intravenous solution 1,000 mL, 1,000 mL, IV, 983.61 mL/hr, for 30 day(s), Stop date 02/20/25 22:57:00 EDT, STAT, Start date 01/21/25 22:58:00 EDT, 61 minute(s), Total volume (mL): 1,000, 94.6 kg, 2.06, m2 [facility] 05-20-2025 History of Present illness Narrative* [...] Ambulatory Problems Diagnosis Date Noted Engages in evangelical activities 10/02/2020 Endogenous hyperlipemia (CMS/HCC) 10/02/2020 Heart [...] < 3 seconds Digits 1-5 bilateral NEURO: Early Lupe 5.07 monofilament was intact B/L. Vibratory [...] the radiographic findings recommended she continue with qwufa-zb-qxtgnv exercises. I dispensed a Pneumatic walking boot [...] Supplier Guidelines. MANUEL Wasserman documented in this encounterMiss[facility] HealthcareJvicorrjke06-20-2805 History of Present illness Narrative* Earnest Salomon DPM FACFAS - 01/02/2025 11:40 AM EDT Images from [...] 0.55 - 1.02 mg/dL Final TBH EGFR-AF BAHAMIAN 01/02/2025 >60 >=60 mL/min/1.73m 2 Final TBH EGFR-NON AF BAHAMIAN 01/02/2025 >60 >=60 mL/min/1.73m 2 Final BUN CREATININE RATIO 01/02/2025 19.3 Final CALCIUM 01/02/2025 8.7 8.5 - 10.1 mg/dL Final Clinisync Result Encounter on 01/02/2025 Component Date Value Ref Range Status TBH WBC 01/02/2025 7.0 4.0 - 11.0 10 [...] < 3 seconds Digits 1-5 bilateral NEURO: Early Lupe 5.07 monofilament was intact B/L. Vibratory [...] Radiographs: AP/MO/LAT: X-rays will be taken to [facility] ASSESSMENT 1. Plantar fasciitis 2. Hallux [...] block anesthesia MANUEL Wasserman documented in this encounterMissouri Southern HealthcareJwzxdlaemm23-69-2918 Telephone encounter Note* Telephone Encounter - MANUEL Wasserman - 12/04/2024 10:40 PM EDT Phone #: [phone] Insurance: Payor: [facility] MEDICAID / Plan: [employer] [place] / Product Type: *No Product type* / Preferred Date/Time: First Available [x] SULEMA [] Patient Name: Apryl Downs : 1980 Surgeon: Dr. Earnest Salomon [x] Dr. Hans Salomon [] Location: [facility] [x] [facility] [] [facility] [] Procedure(s): 1. Trell bunionectomy left foot 2. Endoscopic plantar fasciotomy left foot CPT Code(s): 81224. 21394 Diagnosis: ICD-10-CM 1. Plantar fasciitis M72.2 2. [...] Cardiology [] Rheumatology [] Other [] [facility] HealthcareNubqomwejn06-09-7070 Miscellaneous Notes* Telephone Encounter - MANUEL Wasserman - 12/04/2024 10:40 PM EDT Phone #: [phone] Insurance: Payor: [employer] / Plan: [employer] [place] / Product Type: *No Product type* / Preferred Date/Time: First Available [x] SULEMA [] Patient Name: Apryl Downs : 1980 Surgeon: Dr. Earnest Salomon [x] Dr. Hans Salomon [] Location: [facility] [x] [facility] [] Erica [] Procedure(s): 1. Trell bunionectomy left foot 2. Endoscopic plantar fasciotomy left foot CPT Code(s): 06085. 53810 Diagnosis: ICD-10-CM 1. Plantar fasciitis M72.2 2. [...] Rheumatology [] Other [] documented in this encounterMissouri Southern HealthcarePhcamjfrzo48-05-1066 History of Present illness Narrative* MANUEL Wasserman [...] < 3 seconds Digits 1-5 bilateral NEURO: Early Lupe 5.07 monofilament was intact B/L. Vibratory [...] and answered. MANUEL Wasserman documented in this encounterMissouri Southern HealthcareFfkwhkpiye78-11-7534 History of Present illness Narrative* MANUEL Wasserman [...] < 3 seconds Digits 1-5 bilateral NEURO: Early Lupe 5.07 monofilament was intact B/L. Vibratory [...] 2 weeks. MANUEL Wasserman documented in this encounterMissouri Southern HealthcareAoyjkeorcb68-66-5302 History of Present illness Narrative* MANUEL Wasserman [...] numerous conservative therapies including: shoe gear modifications, ioja-scn-haqbsvd anti-inflammatory medications, xyfe-dhd-lqcqpfk orthotic devices to no avail. They rate [...] < 3 seconds Digits 1-5 bilateral NEURO: Early Lupe 5.07 monofilament was intact B/L. Vibratory [...] symptoms of post- static dyskinesia, 2.) Prevent qzz-wgrzds-bvubptr contracture of the Achilles tendon. 3.) Provide [...] Supplier Guidelines. MANUEL Wasserman documented in this encounterMissouri Southern HealthcareYftxqltvuy22-05-1982 Evaluation note* Encounter Date Diagnosis Assessment Notes Treatment Notes Treatment Clinical Notes Aug, Type 2 diabetes mellitus with hyperglycemia, without long-term current use of insulin (ICD-10 - E11.65) [facility] Other 11-07-2023 Evaluation note* Encounter Date Diagnosis Assessment Notes Treatment Notes Treatment Clinical Notes Jun, Other iron deficiency anemia (ICD-10 - D50.8) [facility] Other 10-31-2023 Evaluation note* Encounter Date Diagnosis Assessment Notes Treatment Notes Treatment Clinical Notes May, Type 2 diabetes mellitus with hyperglycemia, without long-term current use of insulin (ICD-10 - E11.65) [facility] Other 10-30-2023 Evaluation note* Encounter Date Diagnosis Assessment Notes Treatment Notes Treatment Clinical Notes May, Type 2 diabetes mellitus with hyperglycemia, without long-term current use of insulin (ICD-10 - E11.65) [facility] Other 10-17-2023 Evaluation note* Encounter Date Diagnosis Assessment Notes Treatment Notes Treatment Clinical Notes May, Other iron deficiency anemia (ICD-10 - D50.8) obtain labs. recheck due to fatigue May, Type 2 diabetes mellitus with hyperglycemia, without long-term current use of insulin (ICD-10 - E11.65) Due for A1C will reach out to [facility] lenora caruso. Presently it is covered, but her glucose of 220 indicates dose increase. Will sent paperwork for PA again. [facility] Other 10-03-2023 Evaluation note* Encounter Date Diagnosis Assessment Notes Treatment Notes Treatment Clinical Notes May, Type 2 diabetes mellitus with hyperglycemia, without long-term current use of insulin (ICD-10 - E11.65) [facility] Other 07-11-2023 Evaluation + Plan note Diagnostic Tests Pending * T3 Free 03/08/23 [facility]06-01-2023 History general Narrative - Reported* Type Description Date Medical History DM Medical History hypothyroid Medical History Anemia Surgical History C SECTION X's 2 Surgical History Left Oophorectomy 01/2023 Hospitalization History SEE ABOVE SURGERY [facility] Other 03-12-2021 NotePatient Outreach (COVAMN) APRYL DOWNS ([id number]) 1980 F Date Time Provider Department 11/07/20 [facility] During your visit today, we recorded the following information about you: Allergies As of Date: 11/07/2020 Noted Allergy Reaction OXYCODONE-ACETAMINOPHEN 09/09/2020 2 - Rash Comments: Has tolerated norco in the past Date Reviewed: 10/03/2020 Reviewed by: Bharti Lorenz (Rn) DAWNA Zavala - Fully Assessed Order(s):SARS-COVID VACCINE 1ST DOSE APPT [[id number]] Order #: [id number] FUTURE Prescriptions as of 11/07/2020 Sig: METFORMIN [...] Heart murmur [R01.1] 10/02/2020 More... Patient is Restoration [Z78.9] 10/02/2020 More... Encounter Status:Closed by ZACK CAPPSUSER on 11/10/20[facility] Evaluation + Plan note No data available for this section [facility] noteNo InformationNost. [facility] Yovia Other Evaluation note* Diagnosis Onset Date Resolution Status Iron deficiency anemia acute Left foot pain acute Type 2 diabetes mellitus with hyperglycemia [facility] Work Phone: Evaluation note* Diagnosis Onset Date Resolution Status Iron deficiency anemia acute Left foot pain acute Type 2 diabetes mellitus with hyperglycemia acute Type 2 diabetes mellitus with hyperglycemia acute [facility] Work Phone: Evaluation note* Diagnosis Calcaneal spur, left foot- Primary Plantar fasciitis Plantar fascial fibromatosis Gastrocnemius equinus of left lower extremity documented in this encounter [facility] HealthcareEvaluation note* Diagnosis Gastrocnemius equinus of left lower extremity- Primary Plantar fasciitis Plantar fascial fibromatosis Calcaneal spur, left foot documented in this encounter [facility] HealthcareEvaluation noteNo assessment information availableTwin City Hospital Work Phone: Evaluation note* Diagnosis Plantar [...] Plantar fascial fibromatosis documented in this encounter [facility] HealthcareEvaluation note* Diagnosis Hallux valgus of left foot- Primary Left foot pain Pain in soft tissues of limb documented in this encounter [facility] HealthcareEvaluation note* Diagnosis Hallux valgus of left foot- Primary Left foot pain Pain in soft tissues of limb documented in this encounter [facility] HealthcareHospital Discharge instructions No data available for this section [facility]Progress note No data available for this section [facility] Summary Purpose Family History No Family [...] is a 38-year-old female, who presented to [facility] with complaints of left-sided weakness and facial droop. The patient states she had driven herself to the emergency department. The patient states that she was at work when she st (more content not included)... Note HNO ID: [id number] Author: Anjali Muñoz Service: Gynecology Author Type: Physician Type: Brief Op Note Filed: 10/03/2020 8:14 AM Note Text: BRIEF OPERATIVE / PROCEDURE NOTE LOG ID: [id number] SURGERY/PROCEDURE DATE: 10/03/2020 INCISION/PROCEDURE START TIME: 7:57 AM INCISION CLOSE/PROCEDURE END TIME: 8:07 AM SURGEON(S)/PROCEDURALIST(S) AND NETWORK OPERATIONS TECHNICIAN(S): Surgeon(s) and Role: * Ayah Muñoz - [...] the case. Procedure Findings Note HNO ID: [id number] Author: Anjali Muñoz Service: Gynecology Author Type: Physician Type: Brief Op Note Filed: 10/03/2020 8:14 AM Note Text: BRIEF OPERATIVE / PROCEDURE NOTE LOG ID: [id number] SURGERY/PROCEDURE DATE: 10/03/2020 INCISION/PROCEDURE START TIME: 7:57 AM INCISION CLOSE/PROCEDURE END TIME: 8:07 AM SURGEON(S)/PROCEDURALIST(S) AND NETWORK OPERATIONS TECHNICIAN(S): Surgeon(s) and Role: * Ayah Zaidi No [...] iron deficienc y anemia (D50.8) [facility] Referring Provider First Name Amanda Referring Provider Last Name Khalida Referring Provider Specialty Family [facility] Referred Organization [facility] Referred Address [address] [place], [place],[address] Referred Provider Specialty Hematology Referral Priority Routine [...] section and content) DATE CREATED AUTHOR 04/28/2019 [facility] DATE CREATED AUTHOR AUTHOR'S ORGANIZ ATION 10/07/2020 [facility] DATE CREATED AUTHOR AUTHOR'S ORGANIZ ATION 10/07/2020 [facility] DATE CREATED AUTHOR AUTHOR'S ORGANIZ ATION 10/03/2021 [facility] DATE CREATED AUTHOR AUTHOR'S ORGANIZ ATION 12/15/2022 [facility] pital DATE CREATED AUTHOR AUTHOR'S ORGANIZ ATION 03/21/2024 [facility] DATE CREATED AUTHOR AUTHOR'S ORGANIZ ATION 02/20/2025 [facility] EPIC DATE CREATED AUTHOR AUTHOR'S ORGANIZ ATION 03/26/2025 [facility] (unrecognized sect ion and content) No Status [...] Provider Active St art: March 14, 2024 Manager Product Marketing Relationship Specialty Start Date End Date Amanda Villafana MD [address] [place] [address] PCP - General Family Medicine 09/10/24 Samanta Cota NP [address] [place] [address] Nurse Practitioner Family Medicine 03/28/24 Manager Product Marketing Relationship Specialty Start Date End Date Amanda Villafana MD [address] [place] [address] PCP - General Family Medicine 09/10/24 Samanta Cota NP [address] [place] [address] Nurse Practitioner Family Medicine 03/28/24 Manager Product Marketing Relationship Specialty Start Date End Date Amanda Villafana MD [address] [place] [address] PCP - General Family Medicine 09/10/24 Samanta Cota NP [address] [place] [address] Nurse Practitioner Family Medicine 03/28/24 Manager Product Marketing Relationship Specialty Start Date End Date Amanda Villafana MD [address] [place] [address] PCP - General Family Medicine 09/10/24 Samanta Cota NP [address] [place] [address] Nurse Practitioner Family Medicine 03/28/24 Manager Product Marketing Relationship Specialty Start Date End Date Amanda Villafana MD [address] [place] [facility] [address] PCP - General Family Medicine 09/10/24 Samanta Cota NP [address] [place] [address] Nurse Practitioner Family Medicine 03/28/24 Manager Product Marketing Relationship Specialty Start Date End Date Amanda Villafana MD [address] [place] [facility] [address] PCP - General Family Medicine 09/10/24 Samanta Cota NP [address] [place] [address] Nurse Practitioner Family Medicine 03/28/24 Manager Product Marketing Relationship Specialty Start Date End Date Amanda Villafana MD [address] [place] [facility] [address] PCP - General Family Medicine 09/10/24 Samanta Cota NP [address] [place] [address] Nurse Practitioner Family Medicine 03/28/24 Manager Product Marketing Relationship Specialty Start Date End Date Amanda Villafana MD [address] [place] [address] PCP - General Family Medicine 09/10/24 Samanta Cota NP [address] [place] [address] Nurse Practitioner Family Medicine 03/28/24 Manager Product Marketing Relationship Specialty Start Date End Date Amanda Villafana MD [address] [place] [address] PCP - General Family Medicine 09/10/24 Samanta Cota NP [address] [place] [address] Nurse Practitioner Family Medicine 03/28/24 Manager Product Marketing Relationship Specialty Start Date End Date Amanda Villafana MD [address] [place] [address] PCP - General Family Medicine 09/10/24 Samanta Cota NP [address] [place] [address] Nurse Practitioner Family Medicine 03/28/24 Manager Product Marketing Relationship Specialty Start Date End Date Amanda Villafana MD [address] [place] [address] PCP - General Family Medicine 09/10/24 Samanta Cota NP [address] [place] [address] Nurse Practitioner Family Medicine 03/28/24 Manager Product Marketing Relationship Specialty Start Date End Date Amanda Villafana MD [address] [place] [address] PCP - General Family Medicine 09/10/24 Samanta Cota NP [address] [place] [address] Nurse Practitioner Family Medicine 03/28/24 Manager Product Marketing Relationship Specialty Start Date End Date Amanda Villafana MD [address] [place] [address] PCP - General Family Medicine 09/10/24 Samanta Cota NP [address] [place] [address] Nurse Practitioner Family Medicine 03/28/24 Manager Product Marketing Relationship Specialty Start Date End Date Amanda Villafana MD [address] [place] [address] PCP - General Family Medicine 09/10/24 Samanta Cota NP [address] [place] [address] Nurse Practitioner Family Medicine 03/28/24 Manager Product Marketing Relationship Specialty Start Date End Date Amanda Villafana MD [address] [place] [address] PCP - General Family Medicine 09/10/24 Samanta Cota NP [address] [place] [address] Nurse Practitioner Family Medicine 03/28/24 Manager Product Marketing Relationship Specialty Start Date End Date Amanda Villafana MD [address] [facility] [place] [address] PCP - General Family Medicine 09/10/24 Samanta Cota NP [address] [place] [address] Nurse Practitioner Family Medicine 03/28/24 REASON FOR [...] Reason Comments Heel Pain LT heel pain [id number] month Follow up Goals (unrecognized section and [...] BE BASED ON THE PRIMARY CLINICAL RECORDS. [employer] provides no warranty or guarantee of the accuracy or completeness of information in this document.
--- OUTSIDE RECORDS SUMMARY | 2025-03-26 23:24 | XMS_ITS | Encounter Summary ---
Author Organization [facility] Address [facility] [place] [address] Care Team Providers Care Impress Associate Name Role Phone Toby Badillo Primary Care Provider [phone] Source Comments In the event this information is protected by the Federal Confidentiality of Alcohol and Drug AbusePatient Records regulations: The Federal rules restrict any use of the information to criminally investigate or prosecute any alcohol or drug abuse patient.[facility] Encounter Details Date Type Department Care Team (Late st Contact Info) Description 10/02/2020 Patient Msg Pre Anesthesia [address] [place] [address] Gricel Fairchild PA-C [address] [place] [address] Preoperative Instructions Social History Tobacco [...] N ot on file 08/06/2020 Data from: [email or web address].medicine.[email or web address].edu/. Last address used for calculation Not [...] on filedocumented in this encounter Care Teams Impress Associate Relationship Specialty Start Date End Date Toby Badillo DO PCP - General Family Medicine 03/29/12 documented as of this encounter
--- NOTE | 2025-03-26 23:31 | PC.NURSE ---
this patient ambulated back to room number 10 and her gait was steady. this patient complains of a migraine onset toady around 2::00 pm while at home. this patient has Hx of migraine and today migraine presents as her previous migraine. this patient was seen here 1 month ago for a migraine
--- NOTE | 2025-03-26 23:45 | ED_ITS ---
HPI HPI - General Adult General Chief complaint: Headache Stated complaint: MIGRAINE Time Seen by Provider: 03/26/25 23:38 Mode of arrival: walk-in History of Present Illness HPI narrative: This 44-year-old female history of migraine headaches presents for evaluation of a migraine headache that started around 2 PM associated with nausea and photophobia. She states this is a typical headache for her on the top of her head. She does use amitriptyline at night. She is not currently seeing a neurologist. She denies any thunderclap presentation of the headache. She has no neck pain or stiffness. She has not had a fever. She is nauseated but has not had any vomiting or diarrhea. She denies any chest pain or abdominal pain. She has no focal neurologic symptoms. Related Data Home Medications ?Medication ?Instructions ?Recorded ?Confirmed levothyroxine 137 mcg tablet 137 mcg PO .aday 02/10/23 02/23/25 tirzepatide 2.5 mg/0.5 mL 7.5 mg subcut QWEEK 02/10/23 02/23/25 subcutaneous pen injector (Emmanuel) metformin 750 mg tablet,extended 750 mg PO DAILY 08/0602/23/25 release 24 hr lisinopril 20 mg tablet 20 mg PO QDAY 07/05/2402/23 amitriptyline 50 mg tablet 50 mg PO HS 02/23/25 Previous Rx's ?Medication ?Instructions ?Recorded lisinopril 20 mg tablet 20 mg PO DAILY #30 tabs 11/0 03/21 ybezxuywfu-fnkswtdwrkdyl-ahivnnxa 1 cap PO Q8H PRN danelle n #20 caps 10/31/24 50 mg-300 mg-40 mg capsule (Fioricet) hmulbgizbc-xvanmjgxqvxxf-doyjpgnr 1 cap PO Q6H PRN danelle n 5 days #20 01/06/25 50 mg-300 mg-40 mg capsule caps (Fioricet) ondansetron 4 mg disintegrating 4 mg PO Q6H PRN headac he, nausea 02/24/25 tablet or vomiting #20 tabs Allergies Allergy/AdvReac Type Severity Reaction Status Date / Time oxycodone (From Percocet) AdvReac Intermediate Rash Verified 02/23/25 22:33 Opioid HPI Opioid Management Most Recent Opioid Data: Last Pain Scale 2 Today, 01:14 Last ED Pain Assessment Today, 01:14 Last MAR Pain Assessment 03/26/25, 23:56 Review of Systems ROS Status of ROS 10 or more systems reviewed and unremark able except as noted in history and below [facility] Medical History (Updated 03/27/25 @ 00:55 by Jaclyn Perdue MD) Hypothyroidism ?E03.9 - Hypothyroidism, unspecified (ICD-10) Familial hyperthyroidism ?E05.80 - Other thyrotoxicosis without thyrotoxic crisis or storm (ICD-10) HTN (hypertension) ?I10 - Essential (primary) hypertension (ICD-10) Diabetes ?E11.9 - Type 2 diabetes mellitus without complications (ICD-10) Family History (Updated 02/10/23 @ 04:43 by Jazmine Doyle) Mother Family history of COPD (chronic obstructive pulmonary disease) Family history of diabetes mellitus Family history of hypertension Sister Family history of cancer Family history of diabetes mellitus Father Family history of cancer Social History (Updated 02/10/23 @ 04:44 by Jazmine Doyle) Within the past year, how often did you have a drink containing alcohol: never Within the past year, how often did you have six or more drinks on one occasion: never Score interpretation: A score less than 3 is consistent with normal alcohol co nsumption. 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 Known occupational exposures/hazards: No Highest level of school completed/degree received: GED or equivalent Do you want help with school or training: No Are you now , , , , never or living with a partner: In a typical week, how many times do you talk on the telephone with family, friends, or neighbors: 3 or more times per week How often do you get together with friends or relatives: 3 or more times per week How often do you attend gnosticism or scientologist services: never Do you belong to any clubs or organizations such as gnosticism groups unions, fraternal or athletic groups, or school groups: no Total score: 1 Score interpretation: A score of less than or equal to 1 indicates the most socially isolated. Little interest or pleasure in doing things: not at all Feeling down, depressed, or hopeless: not at all Feel stressed/tense/nervous/anxious/difficulty sleeping: not at all Due to disability, difficulty making decisions: No Do you think of yourself as: straight/heterosexual Gender Identity: female Exam Narrative Exam Narrative: Vital signs and Nursing Notes reviewed: Patient is afebrile with a normal pulse, blood pressure is elevated at 184/79, she is not hypoxic with pulse ox of 98% on room air General: Awake, alert, oriented, nontoxic but uncomfortable appearing female lying in a dark room, no respiratory distress, no active vomiting HEENT: Normocephalic atraumatic, mucous membranes are moist and pink, eyes are clear, normal conjunctiva, vision is grossly intact, mild photophobia Neck: Supple, no meningeal signs, no anterior or posterior cervical ly mphadenopathy Chest: Lungs are clear to auscultation with good air entry, there is no wheezing rhonchi or rales appreciated no accessory muscle use, patient is speaking in complete sentences-no chest wall tenderness to palpation CVS: Regular rate and rhythm S1-S2, no murmurs rubs or gallops, pulses are brisk and equal bilaterally ABD: Obese, soft, nondistended, nontender, no rebound guarding or rigidity, bowel sounds are normal, no pulsatile masses appreciated Extremities: Moving all extremities, no lower extremity tenderness or swelling noted, negative Homans' sign, pulses are brisk and equal bilaterally Skin: Normal in appearance without rash,pallor, petechiae or purpura Neuro: No focal deficits; speech is clear, vision is grossly intact, patient is ambulatory with a steady gait, upper and lower extremity strength and sensation is intact Constitutional Vital Signs, click to edit/add: Last Vital Signs Temp 98.6 F 03/26/25 22:53 Pulse 71 03/27/25 00:05 Resp 18 03/27/25 00:05 BP 143/62 H 03/27/25 01:01 Pulse Ox 98 03/27/25 01:10 O2 Del Method Room Air 03/26/25 22:53 Course Vital Signs Vital signs: Vital Signs Temperature 98.6 F 03/26/25 22:53 Pulse Rate 69 03/26/25 22:53 Respiratory Rate 16 03/26/25 22:53 Blood Pressure 160/80 H 03/26/25 22:53 Pulse Oximetry 97 03/26/25 22:53 Oxygen Delivery Method Room Air 03/26/25 22:53 Temperature 98.6 F 03/26/25 22:53 Pulse Rate 71 03/27/25 00:05 Respiratory Rate 18 03/27/25 00:05 Blood Pressure 143/62 H 03/27/25 01:01 Pulse Oximetry 98 03/27/25 01:10 Oxygen Delivery Method Room Air 03/26/25 22:53 Medical Decision Making MDM Narrative Medical decision making narrative: This 44-year-old female with a history of migraine headaches presents for evaluation of a migraine headache that started around 2 PM. She does take amitriptyline at night for headache prophylaxis. She is not currently seeing a neurologist. She states this is a typical migraine for her on the top of her head. It is associated with nausea and photophobia. Her neuroexam was otherwise normal. Vital signs are stable. Blood pressure was elevated at the time of intake but came down after she was treated. She had not been vomiting and there was no sign of dehydration. She was medicated with IM Toradol, Phenergan and Decadron. On reevaluation her pain has come down to a 2 out of 10 and she feels comfortable being discharged. She was encouraged to rest, drink plenty of fluids and return to the emergency department as needed and follow-up closely with her family physician. Discharge Plan Discharge Chief Complaint: Headache Clinical Impression: Migraine Prescriptions / Home Meds: No Action ztknwcfoql-pmwhqpquogjql-pcto [Fioricet] 50-300-40 mg capsule 1 cap PO Q8H PRN (Reason: pain) Qty: 20 0RF amitriptyline 50 mg tablet 50 mg PO HS ondansetron 4 mg tablet,disintegrating 4 mg PO Q6H PRN (Reason: headache, nausea or vomiting) Qty: 20 0RF levothyroxine 137 mcg tablet 137 mcg PO .aday Mounjaro 2.5 mg/0.5 mL pen injector 7.5 mg SUBCUT QWEEK metformin 750 mg tablet extended release 24 hr 750 mg PO DAILY lisinopril 20 mg tablet 20 mg PO QDAY Patient Comments: Pt has not been taking. She stopped it herself. lisinopril 20 mg tablet 20 mg PO DAILY Qty: 30 0RF veptifatng-oolfqdovfssni-msta [Fioricet] 50-300-40 mg capsule 1 cap PO Q6H PRN (Reason: pain) 5 Days Qty: 20 0RF Print Language: Irish Referrals: Emi Gaxiola MD [Primary Care Provider, Family Practice] - 1 week
[2025-03-26] MEDS: DEXAMETHASONE SOD PHOS 10 MG/ML VIAL IM (23:56)
[2025-03-26] MEDS: KETOROLAC TROMETHAMINE 60 MG/2 ML VIAL IM (23:56)
[2025-03-26] MEDS: PROMETHAZINE HCL 25 MG/ML VIAL 12.5 MG IM (23:57)
[2025-03-27] VITALS (12 sets, daily range): BP systolic 143–197; BP diastolic 62–97; PULSE 71; O2SAT 97–100
--- NOTE | 2025-03-27 01:22 | PC.NURSE ---
i gave this patient verbal and written discharge orders and this patient voices yes to understanding these. at time of discharge this patient voices no concerns, needs and this patient shows no signs of distress
== END 2025-03-27 01:21 | disposition home or self-care (01) ==
PROVIDERS: Emergency Provider Emergency Medicine; PCP Family Medicine
DX: G43.909 Migraine, unspecified, not intractable, without status migrainosus (principal); R11.0 Nausea; H53.149 Visual discomfort, unspecified
CPT/HCPCS: 96372; 99284; J1100; J1885; J2550

== ENCOUNTER 2025-07-01 15:45 | Outpatient (OUT) | payer OTHER, SELFPAY ==
--- OUTSIDE RECORDS SUMMARY | 2021-03-12 07:00 | XMS_ITS | Continuity of Care Document ---
Author Organization [facility] Address [address] [place] [address] [place] [address] Phone Care Team Providers Care Legal Activity Adjudicator Name Role Phone Danny Chávez Unavailable Unavailable Procedures Procedure Date PSYCH DIAGNOSTIC EVALUATION PSYCL/NRPSYC TST PHY/QHP 1ST PSYCL/NRPSYC TST PHY/QHP EA OFFICE CONSULTATION Advance Directives Directive Yes / No Effective Date File Name No Information Encounters Encounter Description Practice Location Reason(s) For Visit Diagnoses Date Provider Providers Copied on Encounter PSYCH DIAGNOSTIC EVALUATION [facility], [address] [facility] [place], [id number], [place] tel:[phone] [facility] Weight Loss Surgery No Information Saira Delgado. [address], [id number], [place]. tel:[phone] Referring Provider: Danny Chávez, [address] [place] [address], [address]. tel:[phone] OFFICE CONSULTATION [facility], [address] [facility] [place], [id number], [place] tel:[phone] [facility] Weight Loss Surgery No Information Erik Medina. [address] [facility] [address], [place], [id number], [place]. tel:[phone] Referring Provider: Adam Alba, [address], [address]. tel:[phone] Family History Family Member Type Diagnosis Age At Onset No Information Payers Payer name Insurance type Covered green party ID Luther whitaker(sAngella Gunderson [id number] Social History Type Description Quantity Date Captured Comments Sex Female Smoking Status No Information Chief Complaint And Reason For Visit No Information Reason For Referral Reason For Referral No Information History Of Present Illness Encounter Date Complaint History Of Prese nt Illness No Information Functional Status Date Functional Assessmen t No Information Instructions Date Instruction Additional Infor mation No Information Assessments Type Assessment Date No Information Patient Care Teams Name Effective Dates (start - stop) Status Members No Information
--- OUTSIDE RECORDS SUMMARY | 2024-01-03 05:15 | XMS_ITS ---
Author Organization [facility] [place] Address [address] [place] [address] Care Team Providers Care Litigation Legal Secretary Name Role Phone Emi Gaxiola Primary Care Provider Nieves Garcia Unavailable [phone] REASON FOR VISIT MD Encounters Encounter Location Date Provider Diagnosis [facility] [address] [place] [address] 01/03/2024 Nieves Kelly Plan Of Treatment No Information Progress Notes * Anabella CULVERDOB:[birth year] (45 yo F)Acc No.[id number]:01/03/2024 UNLOCKED PROGRESS NOTE Progress Notes Patient: Anabella POWER :?Nieves Kelly M.D.:1980???Age:43 Y ???Sex:FemaleDate:4Phone:[phone]:[address], [place], [id number]:Emi Gaxiola Subjective: * Chief Complaints: * 1 . MD. * Medical History: Objective: * Vitals: Assessment: Plan: * Treatment: * * Electronic signature of Nieves Kelly MD, [id number] on 07/01/2025 at 03:56 PM ESTSign off status: PendingVisit Status:?CANC (Cancelled) * Provider: Radha Kelly M.D. Date: 01/03/2024 Generated for Printing/Faxing/eTransmitting on:?07/01/2025 03:56 PM EST
--- OUTSIDE RECORDS SUMMARY | 2024-01-03 05:15 | XMS_ITS ---
Author Organization [facility] [place] Address [address] [place] [address] Care Team Providers Care Venue Attendant Name Role Phone Emi Gaxiola Primary Care Provider Nieves Garcia Unavailable [phone] REASON FOR VISIT MD Encounters Encounter Location Date Provider Diagnosis [facility] [address] [place] [address] 01/03/2024 Nieves Kelly Plan Of Treatment No Information Progress Notes * Anabella CULVERDOB:[birth year] (45 yo F)Acc No.[id number]:01/03/2024 UNLOCKED PROGRESS NOTE Progress Notes Patient: Anabella POWER :?Nieves Kelly M.D.:1980???Age:43 Y ???Sex:FemaleDate:4Phone:[phone]:[address], [place], [id number]:Emi Gaxiola Subjective: * Chief Complaints: * 1 . MD. * Medical History: Objective: * Vitals: Assessment: Plan: * Treatment: * * Electronic signature of Nieves Kelly MD, [id number] on 07/01/2025 at 03:57 PM ESTSign off status: PendingVisit Status:?CANC (Cancelled) * Provider: Radha Kelly M.D. Date: 01/03/2024 Generated for Printing/Faxing/eTransmitting on:?07/01/2025 03:57 PM EST
--- OUTSIDE RECORDS SUMMARY | 2025-07-01 15:56 | XMS_ITS | Patient Health Record ---
Author Organization [facility] [place] Address [address] [place] [address] Care Team Providers Care Travel Cota Name Role Phone Emi Gaxiola Primary Care Provider Unavailabl e Reason For Referral No Information Plan Of Treatment No Information Insurance Providers Payer Name Payer Address Payer Phone Subscriber Number Group Number Insured Name Patient Relationship to Insured Coverage Start Date Coverage End Date [employer] [place] [address] [place], [place] [id number] Anabella CulverSelf - patient is the [id number] 2022
--- OUTSIDE RECORDS SUMMARY | 2025-07-01 15:57 | XMS_ITS | Clinical Summary ---
Author Organization [facility] Address [address] [place] [address] Care Team Providers Care Rn L And D Name Role Phone Samanta Cota REINSPECTOR Unavailable [phone] Emi Gaxiola MD Primary Care Provider [phone] Allergies Active AllergyReactionsCriticalityNoted DateCommentsOxycodone-AcetaminophenRash Low09/09/2020 Has tolerated norco in the past Medications MedicationSigDispense QuantityRefillsLast FilledStart DateEnd DateStatus amitriptyline (Elavil) 50 MG tablet Take 50 mg by mouth at bedtime.02/02/2023ctive levothyroxine (Synthroid, Levoxyl) 137 MCG tablet Take 137 mcg by mouth in the morning.02/02/2023ctive lisinopril 20 MG tablet Take 20 mg by mouth in the morning.01/20/2023ctive metFORMIN (Glucophage) 500 MG tablet Take 500 mg by mouth in the morning and 500 mg in the evening. Take with meals. Active Tirzepatide (Mounjaro) 2.5 MG/0.5ML solution pen-injector Inject under the skin.Active levothyroxine (Synthroid, Levoxyl) 125 MCG tablet TAKE 1 TABLET DAILY, FIRST THING IN THE MORNING 2 HOURS PRIOR TO ANY OTHER FOOD/DRINK/MEDS1ctive Active Problems ProblemNoted DateDiagnosed DateEngages in episcopal xgdidcziuj13/04/2021 Overview (03/11/2023): Last Assessment & Plan: Assessment: has received blood products in the past; will discuss if blood transfusion would be needed as shehas four young children she would like to be able to continue to care for. States her mother would refuse blood transfusion for her, however, patient states she is open to discussing transfusion if needed. Endogenous krmxbucxojcn11/04/2021Heart bgakdw8210/02/2020 Overview (03/11/2023): new last week per pcp Last Assessment& Plan: Assessment: stated to be mild and systolic upon chart review. No echo on file for review at this time Xcetlpiadtlkoi28/04/2021 Overview (03/11/2023): Last Assessment & Plan: Assessment: States is well controlled with medication Follows with PCP Systolic enupxr2510/02/2020History of rezwkbt0609/19/2020VD (spontaneous vaginal delivery) ([facility])09/19/2020Iron deficiency anemia due to chronic blood loss09/09/2020 Overview (03/11/2023): Last Assessment & Plan: Assessment: planned upcoming procedure Is receiving iron infusions Following with hematology Encounters DateTypeDepartmentCare GyvuXiadkvwtjhb86/10/2025Telephone [facility] [place] [address] Lennie Encarnacion EDLVDVROK49/10/2025Orders Only [facility] [address] [place] [address] Lennie Encarnacion Preop ynbmmjmwfdg31/06/2025 11:05 AM EDTAncillary Procedure [facility] [address] [place] [address] 06/03/2025 10:10 AM EDTOffice Visit [facility] [address] [place] [address] Earnest Carpio, DPM FACFAS Left foot pain (Primary Dx); Neoplasm of uncertain behavior of skin06/03/2025amboo flowsheet [facility] [address] [place] [address] Earnest Carpio, DPM FACFAS from Last 3 Months Family History RelationNameStatusCommentsDaughter 1AliveDaughter 2AliveDaughter 3AliveDaughter 4AliveFatherDeceasedMotherAliveSon 1AliveSon 2Alive Social History Tobacco UseTypesPacks/DayYears UsedDateSmoking Tobacco: NeverSmokeless Tobacco: Never Tobacco Cessation:Counseling Given: Yes Alcohol UseStandard Drinks/WeekCommentsDefer0 (1 standard drink = 0.6 oz pure alcohol)CommentsUnknownSex and Gender InformationValueDate RecordedSex Assigned at BirthNot on fileLegal OfdWlodwv06/01/2023 8:33 PM EDTGender Identity Not on fileSexual OrientationNot on file Last Filed Vital Signs Vital SignReadingTime TakenCommentsBlood Qnpujnwb596/7406/03/2025 10:45 AM EDT Vzqlx353106/03/2025 10:45 AM EDTTemperature--Respiratory Rate--Oxygen Saturation-- Inhaled Oxygen Concentration--Fbmueu43.6 kg (191 lb)06/03/2025 10:45 AM EDT Ctlfrb665.6 cm (5' 4 )06/03/2025 10:45 AM EDTBody Mass Index32.7906/03/2025 10:45 AM EDT Plan of Treatment DateTypeDepartmentCare Team (Latest Contact Info)Naahgovxbxl02/11/2025 11:20 AM ESTOffice Visit [facility] [address] [place] [address] Earnest Carpio DPM FACFAS [address] [place] [address] Procedures Procedure NamePriorityDate/TimeAssociated DiagnosisCommentsXR FOOT 3+ VIEWS LEFT Iacxizr1906/03/2025 11:00 AM EDT Left foot pain Neoplasm of uncertain behavior of skin from Last 3 Months Results * XR foot 3+ views left (06/03/2025 11:00 AM EDT)Anatomical RegionLaterality ModalityLower Extremities, FootLeftRadiographic ImagingSpecimen (Source) Anatomical Location / LateralityCollection Method / VolumeCollection Time Received Time Narrative 06/03/2025 9:01 PM EDT Imaging Result: XRAY: AP/MO/LAT: pedal radiographs demonstrate intact cortical margins and anatomic alignment. ??Joint spaces are maintained throughout the midfoot forefoot and hindfoot without evidence of acute fracture dislocation or arthropathy Authorizing ProviderResult TypeResult StatusMarc D Dolce DPM FACFASIMG XR PROCEDURESFinal Result from Last 3 Months Insurance Care Teams Team MemberRelationshipSpecialtyStart DateEnd Date Emi Gaxiola MD [address] [place] [address] PCP - GeneralFamily Medicine09/10/24 Samanta Cota NP Nurse PractitionerFamily Medicine03/28/24
--- OUTSIDE RECORDS SUMMARY | 2025-07-01 15:57 | XMS_ITS | Clinical Summary ---
Author Organization [facility] Address [address] [place] [id number] Care Team Providers Care Livestock Yard Attendant Name Role Phone JustinoToby [address] Primary Care Provider Allergies Active AllergyReactionsCriticalityNoted DateCommentsOxycodone-AcetaminophenRash 09/09/2020 Has tolerated norco in the past Medications MedicationSigDispense QuantityRefillsLast FilledStart DateEnd DateStatus albuterol HFA (PROVENTIL HFA, VENTOLIN HFA) 90 mcg/actuation inhaler TAKE 1 TO 2 PUFFS PRIOR TO EXERCISE XQRAAT0607/27/2020Active aspirin, enteric coated (ASPIRIN, ENTERIC COATED) 81 mg EC tablet 09/08/2020ctive levothyroxine (SYNTHROID) 150 mcg tablet Take 150 mcg by mouth once daily.05/18/2020Active ondansetron orally disintegrating (ZOFRAN ODT) 8 mg disintegrating tablet dissolve 1 tablet ON TONGUE every 4 hours if wcpzof2308/24/2020Active ondansetron (ZOFRAN) 8 mg tablet Take 1 tablet by mouth every 8 hours as needed for Nausea/Vomiting. 90 tablet 09/17/2020ctive metFORMIN (GLUCOPHAGE) 500 mg tablet Take 500 mg by mouth twice daily with meals.Active NaCl 0.9% solp 250 mL with iron sucrose 100 mg iron/5 mL soln Inject intravenously.Active Active Problems ProblemNoted DateDiagnosed DateEndogenous kheleljiexdn40/04/2021Hypothyroidism 10/02/2020 Assessment & Plan (10/02/2020 3:54 PM EST): Assessment: States is well controlled with medication Follows with PCP Systolic rsorvt3510/02/2020Heart fqrhay1710/02/2020 Overview (10/02/2020): new last week per pcp Assessment & Plan (10/02/2020 3:50 PM EST): Assessment: stated to be mild and systolic upon chart review. No echo on file for review at this time Patient is Jehovah's Udywyuv1110/02/2020 Assessment & Plan (10/02/2020 4:11 PM EST): [...] transfusion if needed. (spontaneous vaginal delivery) x History of section x 4 and TL09/19/2020Iron deficiency anemia due to chronic blood loss09/09/2020 Assessment & Plan (10/02/2020 3:55 PM EST): Assessment: planned upcoming procedure Is receiving iron infusions Following with hematology Family History Medical HistoryRelationCommentsAnesthesia ProblemsNo Family HistoryBlood ClotsNo Family HistoryClotting DisorderNo Family History Social History Tobacco UseTypesPacks/DayYears UsedDateSmoking Tobacco: NeverSmokeless Tobacco: NeverAlcohol UseStandard Drinks/WeekCommentsYes0 (1 standard drink = 0.6 oz pure alcohol)maybe a few drinks a weekPHQ-2AnswerDate RecordedPHQ-2 ojgaw775 Area Deprivation IndexAnswerDate RecordedNational Score (1-100), lower number is lower riskNot on file08/06/2020State Score (1-10), lower number is lower riskNot on file08/06/2020Data from: https://www.neighborhoodatlas.medicine.[facility].edu/. Last address used for calculationNot on file08/06/2020CommentsNoSex and Gender InformationValueDate RecordedSex Assigned at BirthNot on fileLegal Sex Rntufw2507/30/2012 10:16 AM ESTGender IdentityNot on fileSexual OrientationNot on file Last Filed Vital Signs Vital SignReadingTime TakenCommentsBlood Gjhokwpi082/70010/03/2020 9:40 AM EST Ykkkw2774 9:40 AM EVGOrytxzdfyvb11.1 ??C (97 ??F)10/03/2020 8:15 AM EST Respiratory Ongg631510/03/2020 9:40 AM ESTOxygen Wamqelqtdd854%10/03/2020 9:40 AM ESTInhaled Oxygen Concentration--Scuytu10.2 kg (201 lb)10/03/2020 7:08 AM EST Rcbjzs893 cm (5' 3 )10/02/2020 3:46 PM ESTBody Mass Index35.61010/02/2020 3:46 PM EST Plan of Treatment Health MaintenanceDue DateLast DoneCommentsAnxiety Yobgweenr79/25/1996Depression Shfkulugr65/25/1996HIV Szflkdktj80/25/1996Hepatitis C Khtkkdwwu79/25/1996 DTaP,Tdap,Td Vaccine (1 - Tdap)1997Hepatitis B Vaccine (1 of 3 - 19+ 3- dose series)1997Cervical Cancer Eutgodaxt37/25/1999Mammogram Screening 2018CT Pstyhgkedhno09/25/2023ologuard (FIT-DNA)2023olonoscopy 2023olorectal Cancer Kkdzyqmwo17/25/2023Fecal Occult Blood2023Lipid Ftyxeufnu66/25/9130Bavglkagdcisg32/25/2023iabetes Zcdujznuu84/22/2024 09/19/2020, 1Covid-19 Vaccine ( - 2024- season)2025Influenza Vaccine (#1)2025 Procedures Procedure NamePriorityDate/TimeAssociated DiagnosisCommentsCOMPREHENSIVE METABOLIC EHLXSHfguqcw17/22/2021 10:08 AM EST Iron deficiency anemia, unspecified iron deficiency anemia type from Last 3 Months or Most Recently Relevant to Health Maintenance Results * (ABNORMAL) COMP METABOLIC PANEL (09/19/2020 10:08 AM EST)ComponentValueRef RangeTest MethodAnalysis TimePerformed AtPathologist SignatureProtein, Total 7.26.3 - 8.0 g/dL09/19/2020 5:40 PM ESTCletrinity [facility] LaboratoriesAlbumin4.2 3.9 - 4.9 g/dL09/19/2020 5:[address] [facility] LaboratoriesCalcium8.88.5 - 10.2 mg/dL09/19/2020 5:40 PM [facility] LaboratoriesBilirubin, Total0.30.2 - 1.3 mg/dL09/19/2020 5:40 PM [facility] Laboratories Alkaline Xsevsazshbv7052 - 123 U/L09/19/2020 5:40 PM [facility] ZqjbspkjerzjQJV7100 - 35 U/L09/19/2020 5:40 PM [facility] JufvzvagvwwvRgpecys393(H)74 - 99 mg/dL09/19/2020 5:40 PM [facility] LaboratoriesComment: The [place] Diabetes Association (ADA) provides guidance for cutoff [...] Standards of Medical Care in Diabetes 2016, [place] Diabetes Association. Diabetes Care. 2016.39(Suppl 1). JDE856 - 21 mg/dL09/19/2020 5:[address] [facility] LaboratoriesCreatinine 0.620.58 - 0.96 mg/dL09/19/2020 5:40 PM [facility] LaboratoriesSodium 637667 - 144 mmol/L09/19/2020 5:[address] [facility] LaboratoriesPotassium 4.13.7 - 5.1 mmol/L09/19/2020 5:40 PM [facility] LaboratoriesChloride 55064 - 105 mmol/L09/19/2020 5:40 PM [facility] QqsjccnnoasfFG91662 - 30 mmol/L09/19/2020 5:40 PM [facility] LaboratoriesAnion Mjc836 - 18 mmol/L09/19/2020 5:40 PM [facility] NcrprwdgbiyyTXK011 - 38 U/L 09/19/2020 5:40 PM [facility] LaboratorieseGFR->60 09/19/2020 5:40 PM [facility] LaboratorieseGFR-All Other Races>60. 09/19/2020 5:40 PM [facility] LaboratoriesComment: eGFR (Estimated GFR) Units of measure: mL/min/1.73 [...] eGFR may not accurately reflect actual GFR. Specimen (Source)Anatomical Location / LateralityCollection Method / Volume Collection TimeReceived TimeBloodBLOOD SPECIMEN / Bxszkod6609/19/2020 10:08 AM EST 09/19/2020 10:13 AM EST Narrative Authorizing ProviderResult TypeResult StatusОлег Kaplan MDLABORATORY Final ResultPerforming OrganizationAddressCity/State/ZIP CodePhone Number [facility] [address] [place] [address] [facility] [address] [place] [address] from Last 3 Months or Most Recently Relevant to Health Maintenance Insurance Care Teams Team MemberRelationshipSpecialtyStart DateEnd Date Toby Badillo DO PCP - GeneralFamily Medicine03/29/12
[2025-07-01 16:04] LABS: Hematocrit 35.6 % (36.0-48.0); Hemoglobin 11.5 g/dL (12.0-16.0); Immature Granulocytes Abs Auto 0.02 10^3/uL (0.00-0.03); Immature Granulocytes Pct Auto 0.3 % (0.0-0.5); Lymphocytes Absolute Auto 1.6 10^3/uL (1.2-3.8); Mean Corpuscular HGB Conc 32.3 g/dL (29.9-35.2); Mean Corpuscular Hemoglobin 27.0 pg (26.7-34.0); Mean Corpuscular Volume 83.6 fL (81.0-99.0); Platelet Count 201 10^3/uL (150-450); Red Blood Count 4.26 10^6/uL (4.20-5.40); White Blood Count 6.7 10^3/uL (4.0-11.0)
[2025-07-01 16:11] LABS: Anion Gap 8.3; Blood Urea Nitrogen 13.0 mg/dL (7.0-18.0); Calcium 8.6 mg/dL (8.5-10.1); Carbon Dioxide 29.6 mmol/L (21.0-32.0); Chloride 106 mmol/L (98-107); Estimated GFR (African America >60 (>=60 mL/min/1.73m^2); Estimated GFR (Non-African Ame >60 (>=60 mL/min/1.73m^2); Glucose 77 mg/dL (74-106); Potassium 3.9 mmol/L (3.5-5.1); Sodium 140 mmol/L (136-145)
--- OUTSIDE RECORDS SUMMARY | 2025-07-01 16:18 | XMS_ITS | CCD ---
Author Organization [facility] Care Team Providers Care Administrative Liaison Name Role Phone UNKNOWN, PROVIDER Admitting Unavailable LONDON SALEH Attending Unavailable UNKNOWN, PHYSICIAN Referring Unavailable UNKNOWN, PHYSICIAN Primary Care Unavailable KELLY SALAS CNP Primary Care Physician [phone] Beverly Childers Unavailable Unavailable AICHHOLZ, WATER PUMP OPERATOR SAMANTA Primary Care Unavailable BOB ., CECI Admitting Unavailable BOB ., CECI Attending Unavailable BOB ., CECI Consulting Unavailable AICHHOLZ, WATER PUMP OPERATOR SAMANTA Primary Care Unavailable HARRISON, TRACEY Admitting Unavailable TRACEY TERRY Attending Unavailable JAVIER TERRYYL Consulting Unavailable AICHHOLZ, WATER PUMP OPERATOR SAMANTA Admitting Unavailable AICHHOLZ, WATER PUMP OPERATOR SAMANTA Attending Unavailable AICHHOLZ, WATER PUMP OPERATOR SAMANTA Primary Care Unavailable AICHHOLZ, WATER PUMP OPERATOR SAMANTA Admitting Unavailable AICHHOLZ, WATER PUMP OPERATOR SAMANTA Attending Unavailable AICHHOLZ, WATER PUMP OPERATOR SAMANTA Primary Care Unavailable AICHHOLZ, WATER PUMP OPERATOR SAMANTA Consulting Unavailable DR MANJU CHAMPAGNE Consulting Unavailable AICHHOLZ, WATER PUMP OPERATOR SAMANTA Admitting Unavailable AICHHOLZ, WATER PUMP OPERATOR SAMANTA Attending Unavailable AICHHOLZ, WATER PUMP OPERATOR SAMANTA Primary Care Unavailable AICHHOLZ, WATER PUMP OPERATOR SAMANTA Consulting Unavailable AICHHOLZ, WATER PUMP OPERATOR SAMANTA Admitting Unavailable AICHHOLZ, WATER PUMP OPERATOR SAMANTA Attending Unavailable AICHHOLZ, WATER PUMP OPERATOR SAMANTA Primary Care Unavailable AICHHOLZ, WATER PUMP OPERATOR SAMANTA Consulting Unavailable AICHHOLZ, WATER PUMP OPERATOR SAMANTA Admitting Unavailable AICHHOLZ, WATER PUMP OPERATOR SAMANTA Attending Unavailable AICHHOLZ, WATER PUMP OPERATOR SAMANTA Primary Care Unavailable AICHHOLZ, WATER PUMP OPERATOR SAMANTA Consulting Unavailable AICHHOLZ, SAMANTA J Primary Care Physician [phone] Amanda Villafana Unavailable Beata OTOLARYNGOLOGY REP, Samanta Unavailable Amanda Villafana MD Primary Care Provider [phone] Amanda Villafana MD Primary Care Provider [phone] Amanda Villafana MD Primary Care Provider AMANDA VILLAFANA Primary Care Physician TRESA TUTTLE Attending Unavailabl e PARAG, TRESA ALAN A Admitting Unavailabl e Dokken, Pedro Garcia Attending Unavailable PARAG, TRESA ALAN A Attending Unavailabl e PARAG, TRESA BARILLASY A Attending Unavailabl e PARAG, TRESA ALAN A Attending Unavailabl e PARAG, TRESA WAQAS A Admitting Unavailabl e Lazhmichell OTOLARYNGOLOGY REP, Samanta Unavailable DOLCE, EARNEST Pearson Attending Unavailable DOLCE, EARNEST Pearson Attending Unavailable DOLCE, EARNEST D [...] DOLCE, EARNEST D Referring Unavailable Allergies Allergy ClassificationReported Allergen(s)Allergy TypeDate of OnsetReaction(s) Facility (2 sources)Acetaminophen / oxyCODONEDrug Gocdnzl42-79-9773Vgz [facility] Repository (15 sources)Acetaminophen / oxyCODONE; Translations: [acetaminophen-oxycodone] Drug AllergyEruption of skin (disorder), [facility] (1 source)AcetaminophenDrug Vdnlbgo15-89-5330AhjProm[facility] (3 sources)AcetaminophenDrug Exqutlj94-77-2249jrmtzGnlyxpvdhMercy Health Urbana Hospital (3 sources)oxyCODONEDrug Bldzzcr75-36-7869orypuYmfeadtmaMercy Health Urbana Hospital (20 sources)Acetaminophen / oxyCODONEDrug Ueugbyr57-58-3261SszpMKMP Healthcare Medications Current Medications MedicationDrug Class(es)DatesSig (Normalized)Sig (Original)0.5 ML tirzepatide 15 MG/ML Auto-Injector [Mounjaro] (5 sources)Start: 55-08-8112Hluswrcc 7.5 mg/0.5 mL subcutaneous solution Subcutaneous, 0 Refill(s), Refills(s) 0 Start Date: 08/15/23 Status: Ordered Repeat number: 1Mounjaro 7.5 MG/0.5ML as directed Subcutaneous weekly for 90 days Active0.5 ML tirzepatide 20 MG/ML Auto-Injector [Mounjaro] (3 sources)Mounjaro 10 MG/0.5ML as directed Subcutaneous weekly for 90 days Activeacetaminophen 325 mg / butalbital 50 mg / caffeine 40 mg oral tablet (4 sources)Barbiturate, Central Nervous System Stimulant, MethylxanthineStart: 10-59-3625zyrr 1 tablet by mouth every four hours for headache APAP/butalbital/caffeine 325 mg-50 mg-40 mg Tab 1 tab(s), Oral, q4hr for headache, 15 tab(s), Refill(s) 0, [facility]/pharmacy #[id number], 60, cm, 04/04/21 17:48:00 EDT, Height/Length Dosing, 94.9, kg, 04/04/21 17:48:00 EDT, Weight Dosing Start Date: 04/04/21 Status: [id number] 200 actuat albuterol 0.09 mg/actuat metered dose inhaler (4 sources)beta2-Adrenergic AgonistStart: 03-19-2024 End: 81-29-6367eoko 1 puff(s) by inhalation every four to six hours as needed for wheezingAlbuterol Sulfate 90 mcg/actuation HFA aerosol inhaler Active 2 PUFF INHALATION EVERY 4-6 HOURS as needed for shortness of breath or wheezing 8.5 July 10, 2024 10:46amamitriptyline hydrochloride 50 mg oral tablet (20 sources)Tricyclic AntidepressantStart: 22-09-0664uuww 1 tablet by mouth at bedtimeamitriptyline (Elavil) 50 MG tablet Take 50 mg by mouth at bedtime. 02/02/2023 ActiveStart: 22-30-4152boqy 1 tablet by mouth once daily at bedtime Elavil 25 mg Tab 25 mg = 1 tab(s), Oral, Once a day (at bedtime), # 30 tab(s), Refills(s) 0, Pharmacy: [facility]/pharmacy #[id number], 60, cm, 02/04/21 9:34:00 EDT, Height/Length Dosing, 99.3, kg, 02/04/21 6:14:00 EDT, Weight Dosing Start Date: 02/06/21 Status: Orderedaspirin 81 mg delayed release oral tablet (4 sources)Platelet Aggregation Inhibitor, Nonsteroidal Anti-inflammatory Drug Start: 01-57-8005evqh 1 tablet by mouth once dailyaspirin 81 mg Oral EC Tab 81 mg = 1 tab(s), Oral, Daily, # 90 tab(s), Refills(s) 0, Pharmacy: [facility]/pharmacy #[id number], 60, cm, 02/04/21 9:34:00 EDT, Height/Length Dosing, 99.3, kg, 02/04/21 6:14:00 EDT, Weight Dosing Start Date: 02/06/21 Status: OrderedStart: 02-06-2021 take 1 tablet by mouth once dailyaspirin 81 mg Oral EC Tab 81 mg = 1 tab(s), Oral, Daily, # 90 tab(s), Refills(s) 0, Pharmacy: [facility]/pharmacy #[id number], 60, cm, 02/04/21 9:34:00 EDT, Height/Length Dosing, 99.3, kg, 02/04/21 6:14:00 EDT, We ight Dosing Start Date: 02/06/21 Status: Orderedatorvastatin 40 mg oral tablet (4 sources)HMG-CoA Reductase InhibitorStart: 31-72-6764agfb 1 tablet by mouth once dailyLipitor 40 mg Tab 40 mg = 1 tab(s), Oral, Daily, # 90 tab(s), Refills(s) 0, Pharmacy: [facility]/pharmacy #[id number], 60, cm, 02/04/21 9:34:00 EDT, Height/Length Dosing, 99.3, kg, 02/04/21 6:14:00 EDT, Weight Dosing Start Date: 02/06/21 Status: Orderedcephalexin 500 mg oral capsule (5 sources)Cephalosporin AntibacterialStart: 01-15-2025 End: 58-97-8263jxcc 1 capsule by mouth in the morning, then take 1 capsule by mouth in the evening, then take 1 capsule by mouth at bedtime, then take 1 capsule by mouth three times dailycephalexin (Keflex) 500 MG capsule Indications: Skin and Skin Structure Infection Take 1 capsule (500 mg) by mouth in the morning and 1 capsule (500 mg) in the evening and 1 capsule (500 mg) before bedtime. Do all this for 10 days. TAKE 1 PILL P.O. T.I.D. FOR 10 DAYS. 30 capsule 01/15/2025 01/25/2025 Activelevothyroxine sodium 0.125 mg oral tablet (20 sources)l-ThyroxineStart: 68-86-8128hluvvcoykjlxn (Synthroid, Levoxyl) 125 MCG tablet TAKE 1 TABLET DAILY, FIRST THING IN THE MORNING 2HOURS PRIOR TO ANY OTHER FOOD/DRINK/MEDS 06/05/2024 ActiveStart: 03-14-2024 End: 25-60-3101Ndzmljfduwysv 125 mcg tablet Active 0 .ROUTE .COMPLEX July 10, 2024 10:46am TAKE 1 TABLET DAILY, FIRST THING IN THE MORNING 2 HOURS PRIOR TO ANY OTHER FOOD/DRINK/MEDSStart: 03-14-2024 End: 34-38-9663jnas 1 capsule by mouth once dailyLevothyroxine 125 mcg capsule Discontinued 125 MCG PO Daily March 13, 2024 11:00pm March 1441:17pm Start: 32-79-3958bspe 1 tablet by mouth once dailylevothyroxine 137 mcg (0.137 mg) Tab 137 mcg = 1 tab(s), Oral, Daily, Refills(s) 0 Start Date: 08/15/23 Status: Ordered Repeat number: 1Start: 54-49-6787jdrk 1 tablet by mouth in the morninglevothyroxine (Synthroid, Levoxyl) 137 MCG tablet Take 137 mcg by mouth in the morning. 02/02/2023 ActiveStart: 25-78-6037vmoy 1 tablet by mouth once dailySynthroid 150 mcg (0.15 mg) Tab 150 microgram = 1 tab(s), Oral, Daily, # 90 tab(s), Refills(s) 0, Pharmacy: [facility]/pharmacy #[id number], 160, cm, 04/06/19 13:58:00 EDT, Height/Length Measured, 91.2, kg, 04/06/19 13:58:00 EDT, Weight Measured Start Date: 11/14/19 Status: Orderedtake 1 capsule by mouth once daily in the morningLevothyroxine Sodium 125 MCG 1 capsule in the morning on an empty stomach Orally Once a day Activelisinopril 20 mg oral tablet (20 sources)Angiotensin Converting Enzyme InhibitorStart: 01-20-2023 End: 66-50-8924czfm 1 tablet by mouth in the morninglisinopril 20 MG tablet Take 20 mg by mouth in the morning. 01/20/2023 Qvoifl74 hr metFORMIN hydrochloride 750 mg extended release oral tablet (20 sources)BiguanideStart: 54-03-8015oboh 1 tablet by mouth once dailyMetformin 750 mg tablet extended release 24 hr Active 0 .ROUTE .COMPLEX March 14, 2024 1:17pm TAKE 1 TABLET BY MOUTH EVERY DAYStart: 08-15-2023 End: 99-62-7976qvgh 1 tablet by mouth once dailyMetformin 750 mg tablet extended release 24 hr Discontinued 750 MG PO Daily March 12, 2024 11:37am March 14, 2024 1:17pm FreeTextSi tablet with evening meal Orally Once a day; Note: Source Status: Taking; Provider: Khalida Middleton ( )Start: 68-56-6044xwjh 500 mg by mouth once dailymetformin 500 mg, Oral, Daily, Refills(s) 0, High blood sugar Start Date: 09/25/20 Status: Ordered methylPREDNISolone 4 mg oral tablet (2 sources)CorticosteroidStart: 09-10-2024 End: 50-26-6083hhka 1 tablet by mouth oncemethylPREDNISolone (Medrol Dospak) 4 MG tablets Indications: Acute Bursitis Take 1 tablet (4 mg) bymouth 1 (one) time for 1 dose Follow schedule on package instructions 1 each 09/10/2024 09/10/2024 Activemounjaro 7.5 mg/0.5ml solution pen-injector (2 sources)Mounjaro 7.5 MG/0.5ML as directed Subcutaneous weekly for 90 days ActiveMulti Vitamin+ (4 sources)Start: 94-58-1901wfcg 1 tablet by mouth once dailyMulti Vitamin+ 1 tab, Oral, Daily, Refill(s) 0 Start Date: 02/04/21 Status: Orderedmupirocin 0.02 mg/mg topical ointment (3 sources)RNA Synthetase Inhibitor AntibacterialStart: 87-14-0332Qkgtidtun 2 % ointment Active 1 APPLIC TOPICAL Twice daily October 04, 2024 12:01pmStart: 06-14-2024 End: 04-09-1306Xcgdlodqv 2 % ointment Discontinued 1 APPLIC TOPICAL Twice daily June 13, 2024 11:00pm October 04, 2024 12:01pmStart: 06-14-2024 Mupirocin Active 1 APPLIC TOPICAL Twice daily June 14, 2024 12:00am naproxen 500 mg oral tablet (4 sources)Nonsteroidal Anti-inflammatory DrugStart: 72-85-0159yedm 1 tablet by mouth twice dailyNaprosyn 500 mg Tab 500 mg = 1 tab(s), Oral, BID, # 20 tab(s), Refills(s) 0 Start Date: 02/01/21 Status: Orderedondansetron 4 mg disintegrating oral tablet (1 source)Serotonin-3 Receptor AntagonistStart: 31-56-1427lnyc 1 tablet by mouth every eight hoursOndansetron 4 mg tablet,disintegrating Active 4 MG PO Q8H October 04, 2024 12:00amTirzepatide (9 sources)Start: 95-76-8850Bnczwgvrciq (Mounjaro) 7.5 mg/0.5 mL pen injector Active 0 .ROUTE .COMPLEX March 12, 2024 11:37am INJECT SUBCUTANEOUSLY DIRECTED ONCE A WEEKStart: 75-39-9426Kbrgluqltlv (Mounjaro) 7.5 mg/0.5 mL pen injector Active 0 .ROUTE .COMPLEX March 12, 2024 12:37pm INJECT SUBCUTANEOUSLY DIRECTED ONCE A WEEKStart: 11-30-2023 End: 90-01-1146Ayezvrmboei 7.5 mg/0.5 mL pen injector Discontinued 7.5 MG SUBCUT every week November 29, 2023 11:00pm March 19, 2024 9:59am FreeTextSig: as directed Subcutaneous weekly; Note: Source Status: Refill; Refills: 1; Provider: Khalida Middleton EStart: 11-30-2023 End: 17-64-2589cyrzph 7.5 mg by subcutaneous injection every weekTirzepatide Discontinued 7.5 MG SUBCUT every week November 30, 2023 12:00am March 19, 2024 10:59am FreeTextSig: as directed Subcutaneous weekly; Note: Source Status: Refill; Refills: 1; Provider: Khalida Middleton EStart: 11-21-2023 End: 07-63-4120Ejculfmqyaz (Mounjaro) 7.5 mg/0.5 mL pen injector Discontinued 0 .ROUTE .COMPLEX November 20:32am March 12, 2024 11:37am INJECT SUBCUTANEOUSLY DIRECTED ONCE A WEEKStart: 11-21-2023 End: 60-32-6336Atwibosbxuj (Mounjaro) 7.5 mg/0.5 mL pen injector Discontinued 0 .ROUTE .COMPLEX November 2020230829:32am March 12, 2024 12:37pm INJECT SUBCUTANEOUSLY DIRECTED ONCE A WEEKTirzepatide (Mounjaro) 2.5 MG/0.5ML solution pen-injector (20 sources)Tirzepatide (Mounjaro) 2.5 MG/0.5ML solution pen-injector Inject under the skin. ActiveZofran ODT 4 mg Tab-Dis (5 sources)Start: 23-24-5010wpbp 1 tablet by mouth every six hoursZofran ODT 4 mg Tab-Dis 4 mg = 1 tab(s), Oral, q6hr, # 12 tab(s), Refills(s) 0, Pharmacy: [facility]/pharmacy #[id number], 162, cm, 01/21/25 22:41:00 EDT, Height/Length Dosing, 94.6, kg, 01/21/25 22:41:00 EDT, Weight Dosing Start Date: 01/22/25 Status: Ordered Quantity: 12.0 Unit: tab(s) Repeat number: 1Start: 86-20-3349odmm 1 tablet by mouth every eight hoursZofran ODT 4 mg Tab-Dis 4 mg = 1 tab(s), Oral, q8hr, # 10 tab(s), Refills(s) 0 Start Date: 02/01/21 Status: Ordered Completed/Discontinued Medications MedicationDrug Class(es)DatesSig (Normalized)Sig (Original)albuterol HFA 90 mcg/inh MDI (4 sources)Start: 50-92-5765ktli 1 dose by inhalation every four hoursalbuterol HFA 90 mcg/inh MDI 1 puff(s), Inhalation, q4hr for wheezing/shortness of breath, 1 EA, Refill(s) 0, [facility]/pharmacy #[id number] Start Date: 02/26/19 Status: Ordered sulfamethoxazole 800 mg / trimethoprim 160 mg oral tablet (5 sources)Dihydrofolate Reductase Inhibitor Antibacterial, Sulfonamide AntimicrobialStart: 06-14-2024 End: 03-03-3672daqj 1 tablet by mouth twice dailySulfamethoxazole-Trimethoprim 800-160 mg tablet Discontinued 1 TAB PO Twice daily June 13, 2024 11:00pm October 04, 2024 11:43amtake 1 tablet by mouth every twelve hours Bactrim DS 800-160 MG 1 tablet Orally Twice a day for 5 days ActiveTirzepatide (3 sources)Start: 10-11-2023 End: 60-89-7726Dcuaauufyxs (Mounjaro) 10 mg/0.5 mL pen injector Discontinued 10 MG SUBCUT every week 2 2023 12:00am November 21, 2023 10:32am Start: 10-11-2023 End: 78-68-6780Bnsdwnsbhou (Mounjaro) 10 mg/0.5 mL pen injector Discontinued 10 MG SUBCUT every week 2 2023 1:00am November 21, 2023 11:32am Problems Active Problems Problem ClassificationProblemDateDocumented DateEpisodic/ChronicAcquired foot deformities (13 sources)Hallux valgus (acquired), left foot; Translations: [Hallux valgus (acquired)]83-15-7275NzleqpqXwrayx (5 sources)Owlhbs12-41-6419HpkzyqeZjndazthlm and other anemia (20 sources)Iron deficiency anemia due to blood loss; Translations: [Iron deficiency anemia secondary to blood loss (chronic)]Onset: 401280-51-8505 ChronicDeficiency and other anemia (12 sources)Iron deficiency anemia; Translations: [Other iron deficiency anemias]78-85-4538ZoxfbgceQgvfwdgtxj and other anemia (2 sources)Other iron deficiency anemiasEpisodicDeficiency and other anemia (2 sources)Iron deficiency anemia, unspecified; Translations: [Iron deficiency anemia, unspecified]82-90-8849YekrczucDssnilcz mellitus with complications (20 sources)Type 2 diabetes mellitus; Translations: [Type 2 diabetes mellitus with hyperglycemia]ChronicDiabetes mellitus without complication (16 sources)Diabetes mellitus; Translations: [Diabetic on insulin]Onset: 06-09-2022 Resolved: 111763-48-6154LbxqhduSpcaktmxl of lipid metabolism (20 sources)Endogenous hyperlipidemia; Translations: [Hypercholesterolemia] Onset: 017247-91-4512EdppbxhGbimhxojd hypertension (2 sources)Essential (primary) hypertension; Translations: [Hypertensive disorder]Onset: 817302-18-8644BcbgvsfSweyxvwxjiyxd symptoms and ill- defined conditions (4 sources)Dysuria; Translations: [Dysuria]Onset: 96-50-1246VyregqpeOihmephs; including migraine (6 sources)Migraine without aura, not refractory ; Translations: [Migraine without aura, not intractable, without status migrainosus]Onset: 12-31-2021 ChronicMalaise and fatigue (5 sources)Asthenia; Translations: [Weakness]Onset: 26-29-1370Xmxifgqg Miscellaneous mental health disorders (5 sources)Chronic rtfadqwg26-09-5480DtnlzxvUfydvbqco of unspecified nature or uncertain behavior (2 sources)Neoplasm of uncertain behavior of skin; Translations: [Neoplasm of uncertain behavior of skin]93-44-8182IrgzofbsEgjafxynnzs deficiencies (5 sources)Vitamin D yxmblakmmi79-59-0489RiktlcxLbqls aftercare (1 source)nursing home (current) use of oral hypoglycemic drugs; Translations: [USP USE ORAL HYPOGLYCEMIC DX]Onset: 78-73-0871RkxpshaoXuwyo aftercare (1 source)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; Translations: [OTH ON SITE MANAGER CURRENT DRUG THERAPY]Onset: 19-37-5020ApwikbfvIhkmb circulatory disease (1 source)History of transient ischemic cgykxt94-55-8365KqdluibsVtjyb connective tissue disease (1 source)Neurological finding; Translations: [Other symptoms and signs involving the nervous system]Onset: 24-18-0219UjbjzhjaQgbph connective tissue disease (3 sources)Foot pain; Translations: [Pain in left foot]77-05-4833YcajbmkmXmvzd connective tissue disease (2 sources)Pain in left foot; Translations: [Pain in limb]64-57-6096Leacxhqw Other connective tissue disease (12 sources)Plantar fasciitis; Translations: [Plantar fascial fibromatosis] 11-62-9631AgslxvzpTyjjw connective tissue disease (3 sources)Calcaneal spur of left foot; Translations: [Calcaneal spur, left foot]03-00-9869ZyvmvqffLqopu connective tissue disease (4 sources)Deformity of lower limb; Translations: [Contracture of muscle, left lower leg]27-24-9957NavvhtgfVnpzw connective tissue disease (8 sources)Pain in left foot; Translations: [Pain in left foot]01-15-2025 EpisodicOther hereditary and degenerative nervous system conditions (5 sources)Restless yqzj37-66-8434CqbhrmdMugmg nutritional; endocrine; and metabolic disorders (5 sources)Jpgxjme96-95-5398TgjhwbnYzeye screening for suspected conditions (not mental disorders or infectious disease) (5 sources)Serum iron kvv94-76-8700PbkwldrrFtiwp upper respiratory infections (5 sources)Vapcdmioo12-60-0126OzcufvgRqubcyhbc (5 sources)Left odnrijrhzj68-39-9436YtargcoIaiivavm codes; unclassified (1 source)Refused procedure - parent's wish; Translations: [Procedure and treatment not carried out because of patient's decision for other reasons]Onset: 97-93-9784MrhepuwfEdat and subcutaneous tissue infections (1 source)Cellulitis of umbilicus ; Translations: [Cellulitis of umbilicus] 10-27-8418LktlohpvJpcckwv disorders (20 sources)Hypothyroidism; Translations: [Hypothyroidism, unspecified]Onset: 864026-19-2008BxznveoBxtyhbuel cerebral ischemia (4 sources)Transient cerebral ischemic attack, unspecified; Translations: [TRANS CERBRAL ISCHEMIC ATTACK UNS]Onset: 27-92-7051AitfrufJsraaryweawh (5 sources)Baptism mu-ism (mu-ism/philosophy)93-57-6665Rhcmdce tract infections (1 source)Urinary tract infection, site not specified; Translations: [UTI SITE NOT SPECIFIED]Onset: 11-45-1422Cyqlqpil Past or Other Problems Problem ClassificationProblemDateDocumented DateEpisodic/ChronicDiabetes or abnormal glucose tolerance complicating ; childbirth; or the puerperium (5 sources)Gestational diabetes mellitus, class A>2< Resolved: 425224-02-3813NosvvfagP Codes: Unspecified (20 sources)Does pursue baptism activities; Translations: [Activity, other specified]Onset: 276913-32-1816ExcpqgtuKermm valve disorders (20 sources)Heart murmur; Translations: [Systolic murmur]Onset: 10-02-2020 94-46-1975IekbhlxwOdetzeh on above:new last week per pcpOther nervous system disorders (1 source)Paresthesia of skin; Translations: [PARESTHESIA OF SKIN]Onset: 95-13-8213HqoiiovqSupft and delivery including normal (20 sources)Vaginal delivery; Translations: [Encounter for full-term uncomplicated delivery]Onset: 369405-31-1606Nmkrmdfe Results Test NameValueInterpretationReference RangeFacilityXR Foot - left 3 Viewson 68-56-6490Hbjokwb Result: XRAY: AP/MO/LAT: pedal radiographs demonstrate intact cortical margins and anatomic alignment. Joint spaces are maintained throughout the midfoot forefoot and hindfoot without evidence of acute fracture dislocation or arthropathyNOMS Summa HealthNOUT HealthcareRadiology Study observation (narrative) NOMS HealthcareProvider Letteron 07-44-6412Vzhwfddc LetterProvider Letter April 04, [address] [facility] [address] [place] [address] : 1980 Dear Apryl, We have been trying to reach you with no success. It is important that you return our call regarding your referral from your Primary Care to see [facility]. Please call the office to schedule aappointment upon receiving this letter. Also, at the time of your call, please provide us with yourcurrent information. Thank you for your prompt attention to this matter. Sincerely, [address], [address] [place], [place] [address] [phone] Medical CenterAmbulatory Visit Summaryon 01-65-5703Qsteydedkq Visit SummaryAmbulatory Visit Summary APRYL DOWNS :1980 Visit Date:03/26/2025 Ambulatory Visit Instructions Your Diagnosis Diabetes Hypothyroid Screen for colon cancer Screening for breast cancer Encounter to establish care with new provider BMI 36.0-36.9,adult Obesity (BMI 30-39.9) Nonsmoker Your Care Team Attending Physician - WAQAS TUTTLE CNP Primary Care Physician - WAQAS TUTTLE CNP This Is Your Medications List albuterol (Albuterol (Eqv-ProAir HFA) 90 mcg/inh inhalation aerosol) amitriptyline (amitriptyline 50 mg Tab) levothyroxine (levothyroxine 137 mcg (0.137 mg) Tab) lisinopril (lisinopril 20 mg Tab) metformin (metformin 750 mg ER Tab) ondansetron (Zofran ODT 4 mg Tab-Dis) tirzepatide (Mounjaro 7.5 mg/0.5 mL subcutaneous solution) Procedures Performed section, section, Endometrial ablation, Foot, Hx of tubal ligation., Left oophorectomy. Discharge Vitals Temperature (Oral) 36.8 ???C Heart Rate (Peripheral) 70 Respiratory Rate 18 Blood Pressure 142/88 Height 64 in Height 162 cm Weight 211.423 lb Weight 95.9 kg BMI 36.54 What to do next Scheduled Follow-Up Appointments Tuesday 11:20 AM EDT With: WAQAS TUTTLE CNP Where: [facility] [place] [address] [place] [id number]- You Need to Schedule the Following Appointments Follow Up with WAQAS TUTTLE CNP, FAM When: Within 4 weeks Comments: HTN Where: [address] [place] [id number] Business (1) You Need to Complete the Following MA Mamm Screen w/CAD if perf and 3D Jp, 03/26/25, Routine, Order for Future Visit, Transport Mode:Cart, Reason: Screening, No, Screening for breast cancer, pp_set_radiology_subspecialty, [facility] Medications What How Much When Instructions Unchanged albuterol (Albuterol (Eqv-ProAir HFA) 90 mcg/ inh inhalation aerosol) INHALE 2 PUFFS EVERY 4 TO 6 HOURS NEEDED FOR SHORTNESS OF BREATH OR FOR WHEEZE Unchanged amitriptyline (amitriptyline 50 mg Tab) as directed Unchanged levothyroxine (levothyroxine 137 mcg (0.137 mg) Tab) 1 Tablets By Mouth Every day Unchanged lisinopril (lisinopril 20 mg Tab) 1 Tablets By Mouth Every day Unchanged metformin (metformin 750 mg ER Tab) as directed Unchanged ondansetron (Zofran ODT 4 mg Tab-Dis) 1 Tablets By Mouth Every 6 hours Unchanged tirzepatide (Mounjaro 7.5 mg/ 0.5 mL subcutaneous solution) Subcutaneous, 0 Refill(s) Allergies Percocet 5/325 (Rash) Problems Ongoing - Any problem that you are currently receiving treatment for. BMI 36.0-36.9,adult Chronic insomnia Diabetes Endogenous hyperlipidemia History of TIA (transient ischemic attack) HTN (hypertension) Hypothyroid Iron deficiency anemia Baptism mu-ism Left hemiplegia Nonsmoker Obesity Obesity (BMI 30-39.9) Restless leg syndrome Serum iron low Systolic murmur Vitamin D deficiency Historical - Any problem that you are no longer receiving treatment for. Asthma DIABETES MELLITUS Diabetic on insulin Gestational diabetes mellitus, class A>2< hypercholesterolemia Hypothyroid Sinusitis Patient Survey You may receive a survey via text or e-mail asking about your office visit. Please share your experience with us by completing your survey. We appreciate your feedback and thank you for choosing us for your care. Patient Portal You may access all of your results and other medical record information on our secure patient portal. If you are not signed up for this yet, please contact [employer] at [phone] to get signed up today. Language Information Language assistance services are available as needed. [facility] Medicine Office/Clinic Noteon 12-32-4103Dofwkp Medicine Office/Clinic NoteFahigh point hospital Medicine Office/Clinic Note Chief Complaint Establish Care The patient presents for establishing care with a new provider. HPI Staff Pt is a new pt. Presenting today to establish care. History: Any previous diagnosis: HTN, hyperthyroidism, DM & Migraines History of seeing any specialist: no When was your last doctors visit: 6months Last provider: Dr Villafana Any recent labs: 6months ago Health Maintenance UTD: Colonoscopy: no Mammogram: >1yr ago Pelvic/Pap: yrs ago Acute: Current issues/complaints: Has not taken Mounjaro for over a month. Does need levothyroxine, metformin & lisinopril. EKG, CBC & BMP printed off from [employer] History of Present Illness 44-year-old female presenting with the need to establish care with a new provider. She previously saw Dr. Villafana but was dismissed due to missed appointments related to work commitments. The patient has a history of diabetes, managed with metformin and previously with Mounjaro, which was discontinued for unknown reasons. She does not currently monitor her blood glucose due to lack ofequipment and last had her A1c checked six months ago, though the result is unknown. She doris increased thirst or urination. The patient also has hypothyroidism, treated with levothyroxine, and hypertension, managed with lisinopril, which she has not taken for two months. Her blood pressure was recorded at 142/88 mmHg during the visit. She has not had a colonoscopy, which is recommended at her age, and she is due for a diabetic eye exam, scheduled for April. Her last mammogram was normal, and she plans to have her next one at [facility]. Review of Systems PHQ Score Initial Depression Screen Score: 0 SCORE Constitutional: no fever, no chills, no sweats, no weakness Skin: no Jaundice, no rash, no lesions, nopetechiae ENMT: no ear pain, no sore throat, no congestion, no hoarseness Respiratory: no shortness of breath, no cough, no orthopnea, no wheezing Cardiovascular: no chest pain, no palpitations, no edema Gastrointestinal: no nausea, no vomiting, no diarrhea, no GI bleeding Genitourinary: no dysuria, no hematuria, no discharge, no pain Musculoskeletal: no back pain, no trauma Neurologic: no headache, no dizziness, no numbness, no weakness Psychiatric: no sleeping problems, no irritability, no mood swings/depression. Heme/Lymph: no bleeding tendency, no bruising tendency, no petechiae, no swollen nodes Allergy/Immunologic: no seasonal allergies, no food allergies, no recurrent infections, no impairedimmunity Additional ROS info: Except as noted in the above Review of Systems and in the History of Present Illness all other systems have been reviewed and are negative or noncontributory. Physical Exam Vitals & Measurements T: 36.8 ???C(Oral) HR: 70(Peripheral) RR: 18 BP: 142/88 SpO2: 98% HT: 64 in HT: 162 cm WT: 95.9 kg WT: 211.423 lb BMI: 36.54 General: alert, no acute distress Skin: warm, dry Head: no trauma, normocephalic Neck: Trachea midline, no adenopathy, no tenderness Eye: normal conjunctiva, sclera clear ENMT: TM's clear, oral mucosa moist, no pharyngeal erythema or exudate Cardiovascular: regular rate and rhythm, normal peripheral perfusion Respiratory: Lungs CTA, respirations non labored Chest wall: no deformity. Gastrointestinal: soft, non distended, no tenderness, no guarding. Back: No tenderness, Normal ROM, Normal alignment. Extremities: no deformity, no trauma Foot: Normal sensation, no lesions, palpable pedal pulses Neurological: oriented x 4, LOC appropriate for age, CN II-XII intact, motor strength equal & normal bilaterally, sensation equal & normal bilaterally, speech normal Psychiatric: cooperative, affect appropriate for age, normal judgement, normal psychiatric thoughts. Diabetic Foot Exam Decreased Monofilament Sensation Foot: Left - Normal, Right - Normal Bunions/Foot Deformity: Left - Normal, Right - Normal Abnormal Pulse Foot: Left - Normal, Right - Normal Skin Lesions Foot: Left - Normal, Right - Normal Vibratory Sensation Foot: Left - Normal, Right - Normal Foot Exam Result: Normal foot exam Assessment/Plan 1. Diabetes (E11.9: Type 2 diabetes mellitus without complications) - Order lancets, meter, and strips for blood glucose monitoring. - Await lab results to determine A1c and adjust treatment accordingly. Ordered: [facility] Prescription, Glucose Kit, See Instructions, 1 EA, 0, Glucose meter. Include autolet, matchingtest strips, lancets, & alcohol wipes, #100 or as allowed by insurance; DX: E11.9, [facility]/pharmacy#[id number], Supply, 162, cm, 03/26/25 10:12:00 EDT, Height/Length Dosing, 95.9,... HgbA1c Lab Specimen Collect [id number] 2. Hypothyroid (E03.9: Hypothyroidism, unspecified) - Continue levothyroxine, instruct patient to take on an empty stomach. Ordered: Misc Prescription, Glucose Kit, See Instructions, 1 EA, 0, Glucose meter. Include autolet, matchingtest strips, lancets, & alcohol wipes, # (more content not included)...[facility] HospitalComment on above:Result Comment: Electronically Signed By: WAQAS TUTTLE CNP.deonte\Date and Time Signed: 03/26/25 12:24 EDTFamily Medicine Office/Clinic NoteFamily Medicine Office/Clinic Note Chief Complaint Establish Care The patient presents for establishing care with a new provider. HPI Staff Pt is a new pt. Presenting today to establish care. History: Any previous diagnosis: HTN, hyperthyroidism, DM & Migraines History of seeing any specialist: no When was your last doctors visit: 6months Last provider: Dr Villafana Any recent labs: 6months ago Health Maintenance UTD: Colonoscopy: no Mammogram: >1yr ago Pelvic/Pap: yrs ago Acute: Current issues/complaints: Has not taken Mounjaro for over a month. Does need levothyroxine, metformin & lisinopril. EKG, CBC & BMP printed off from [employer] Review of Systems PHQ Score Initial Depression Screen Score: 0 SCORE Physical Exam Vitals & Measurements T: 36.8 ???C(Oral) HR: 70(Peripheral) RR: 18 BP: 142/88 SpO2: 98% HT: 64 in HT: 162 cm WT: 95.9 kg WT: 211.423 lb BMI: 36.54 Diabetic Foot Exam Decreased Monofilament Sensation Foot: Left - Normal, Right - Normal Bunions/Foot Deformity: Left - Normal, Right - Normal Abnormal Pulse Foot: Left - Normal, Right - Normal Skin Lesions Foot: Left - Normal, Right - Normal Vibratory Sensation Foot: Left - Normal, Right - Normal Foot Exam Result: Normal foot exam Assessment/Plan 1. Diabetes (E11.9: Type 2 diabetes mellitus without complications) Ordered: Misc Prescription, Glucose Kit, See Instructions, 1 EA, 0, Glucose meter. Include autolet, matchingtest strips, lancets, & alcohol wipes, #100 or as allowed by insurance; DX: E11.9, [id number], Supply, 162, cm, 03/26/25 10:12:00 EDT, Height/Length Dosing, 95.9,... HgbA1c Lab Specimen Collect [id number] 2. Hypothyroid (E03.9: Hypothyroidism, unspecified) Ordered: Misc Prescription, Glucose Kit, See Instructions, 1 EA, 0, Glucose meter. Include autolet, matchingtest strips, lancets, & alcohol wipes, #100 or as allowed by insurance; DX: E11.9, [facility], Supply, 162, cm, 03/26/25 10:12:00 EDT, Height/Length Dosing, 95.9,... Lab Specimen Collect [id number] TSH With T4fr Reflex 3. HTN (hypertension) (I10: Essential (primary) hypertension) 4. Screen for colon cancer (Z12.11: Encounter for screening for malignant neoplasm of colon) Ordered: Misc Prescription, Glucose Kit, See Instructions, 1 EA, 0, Glucose meter. Include autolet, matchingtest strips, lancets, & alcohol wipes, #100 or as allowed by insurance; DX: E11.9, [facility], Supply, 162, cm, 03/26/25 10:12:00 EDT, Height/Length Dosing, 95.9,... [facility] Internal Ambulatory Referral 5. Screening for breast cancer (Z12.39: Encounter for other screening for malignant neoplasm of breast) Ordered: Misc Prescription, Glucose Kit, See Instructions, 1 EA, 0, Glucose meter. Include autolet, matchingtest strips, lancets, & alcohol wipes, #100 or as allowed by insurance; DX: E11.9, [facility], Supply, 162, cm, 03/26/25 10:12:00 EDT, Height/Length Dosing, 95.9,... [place] Mamm Screen w/CAD if perf and 3D Jp 6. Encounter to establish care with new provider (Z76.89: Persons encountering health services in other specified circumstances) Ordered: Misc Prescription, Glucose Kit, See Instructions, 1 EA, 0, Glucose meter. Include autolet, matchingtest strips, lancets, & alcohol wipes, #100 or as allowed by insurance; DX: E11.9, [facility], Supply, 162, cm, 03/26/25 10:12:00 EDT, Height/Length Dosing, 95.9,... 7. BMI 36.0-36.9,adult (Z68.36: Body mass index [BMI] 36.0-36.9, adult) Ordered: [facility] Prescription, Glucose Kit, See Instructions, 1 EA, 0, Glucose meter. Include autolet, matchingtest strips, lancets, & alcohol wipes, #100 or as allowed by insurance; DX: E11.9, [facility], Supply, 162, cm, 03/26/25 10:12:00 EDT, Height/Length Dosing, 95.9,... 8. Obesity (BMI 30-39.9) (E66.9: Obesity, unspecified) Ordered: [facility] Prescription, Glucose Kit, See Instructions, 1 EA, 0, Glucose meter. Include autolet, matchingtest strips, lancets, & alcohol wipes, #100 or as allowed by insurance; DX: E11.9, [facility], Supply, 162, cm, 03/26/25 10:12:00 EDT, Height/Length Dosing, 95.9,... 9. Nonsmoker (Z78.9: Other specified health status) [facility], Glucose Kit, See Instructions, 1 EA, 0, Glucose meter. Include autolet, matchingtest strips, lancets, & alcohol wipes, #100 or as allowed by insurance; DX: E11.9, [id number], Supply, 162, cm, 03/26/25 10:12:00 EDT, Height/Length Dosing, 95.9,... Orders: levothyroxine, 137 mcg = 1 tab(s), Oral, Daily, # 90 tab(s), Refills(s) 0, Pharmacy: [facility]/pharmacy #[id number], 162, cm, 03/26/25 10:12:00 EDT, Height/Length Dosing, 95.9, kg, 03/26/25 10:12:00 EDT, Weight Dosing lisinopril, 20 mg = 1 tab(s), Oral, Daily, # 90 tab(s), Refills(s) 0, Pharmacy: [facility]/pharmacy #[id number],162, cm, 03/26/25 10:12:00 EDT, Height/Length Dosing, 95.9, kg, 03/26/25 10:12:00 EDT, Weight Dosing metformin, 750 mg = 1 tab(s), Oral, Daily, as directed, # 90 tab(s), Refills(s) 0, [facility] (more content not included)...NormalFairfield Medical CenterComment on above:Result Comment: Electronically Signed By: WAQAS TUTTLE CNP\Date and Time Signed: 03/26/25 12:22 EDTFree T4on 48-94-8683Kvxq T4 [Mass/Vol]0.84 ng/dLNormal0.58-1.64Fairfield Medical CenterComment on above: Performed By: #### [id number] #### [facility] [address] [place], [place] [address]DmeV1aoe 57-36-9001TrW8o (Bld) [Mass fraction]7.1 %High<=5.9 [facility] Medical CenterComment on above:Performed By: #### [id number] #### [facility] [address] [place], [place] [address]AIL With T4fr Reflexon 98-80-6710RCB Qn6.64 m[IU]/LHigh 0.34-5.60[facility] Medical CenterComment on above:Performed By: #### [id number] #### [facility] [address] [place], [place] [address]ZG Foot - left 3 Viewson 04-23-6092Njhktxt Result: Three views were taken today AP/MO/LAT foot: No fractures or dislocations seen excellent position alignment of the great toe joint fixation intact trabeculation noted across the osteotomy siteNovant Health Presbyterian Medical CenterRadiology Study observation (narrative)[facility] HospitalXR Foot - left 3 Viewson 12-83-7023Tczophl Result: Three views were taken today AP/MO/LAT foot: No fractures or dislocations seen excellent position alignment of the great toe joint fixation intact left footNovant Health Presbyterian Medical CenterRadiology Study observation (narrative)[facility] HealthcareED Clinical Summaryon [id number] Clinical SummaryED Clinical Summary [address] [address] ED Clinical Summary Person Information Name: APRYL DOWNS/[facility] CenterAshwin Age: 44 Years : 1980 Sex: Female Language: Turkmen PCP: AMANDA VILLAFANA MD Marital Status: Phone: [phone] Visit Id: Visit Reason: Vomiting; Nausea; Headache [...] 01/22/2025 00:38:41 01/22/2025 00:38:41 01/22/2025 00:38:41 ADDRESS: [address] [place] [id number] PHYS DOC NOTES: MEDICAL INFORMATION: Prescriptions Given: New Medications [id number], [address], [place] [id number], [phone] ondansetron (Zofran ODT 4 mg Tab-Dis) 1 [...] Refill(s). PATIENT EDUCATION INFORMATION: Instructions: Migraine Headache, Xfke-ux-Soea Follow up: With: Address: When: [address], [place] [address] Business (1) In 3 days 01/25/2025 Comments: You can use the Zofran every 6 hours as needed for nausea and vomiting. Please follow-up with your primary care doctor and neurology for further evaluation management of your symptoms. Please return to the ED for any new or worsening symptoms. With: Address: When: AMANDA VILLAFANA [address] [place], [place] [id number] Business (1) In 3 days DIAGNOSIS: Headache, migraineNormalFisher Jim Medical CenterED Note-Physicianon 52-20-5102FS Note-PhysicianED Note-Physician Basic Information Time Seen: Pedro Syed [...] of her migraines. She is to return tot ED for any new or worsening symptoms. MEDICAL DECISION MAKING Number and Complexity of Problems Differential Diagnosis: [] [facility] Data External documents reviewed: [] My EKG [...] Once, Stop date 01/21/25 22:58:00 EDT, STAT, Startdate 01/21/25 22:58:00 EDT, Administer over no less [...] q6hr, # 12 tab(s), Refills(s) 0, Pharmacy: [facility]/pharmacy #[id number], 162, cm, 01/21/25 22:41:00 EDT, Height/Length Dosing, 94.6, kg, 01/21/25 22:41:00 EDT, Weight Dosing Sodium Chloride 0.9% intravenous solution 1,000 mL, 1,000 mL, IV, 983.61 mL/hr, for 30 day(s), Stopdate 02/20/25 22:57:00 EDT, STAT, Start date 01/21/25 [...] 3 days 01/25/[address], [place] [address]- Business (1) Additional Instructions: You can use the Zofran every 6 hours as needed for nausea and vomiting. Please follow-up with your primary care doctor and neurology for further evaluation management of yoursymptoms. Please return to the ED for any new or worsening symptoms. AMANDA VILLAFANA In 3 days 1 (more content not included)...[facility] HospitalComment on above:Result Comment: Electronically Signed By: Pedro Syed DO\.br\Date and Time Signed: 01/22/25 00:53 EDTED Patient Summaryon [id number] Patient SummaryED Patient Summary [address] [address] Patient Discharge Instructions Person Information Name: APRYL DOWNS Age: 44 Years Arrival Date: 01/21/2025 22:28:55 Discharge Diagnosis: Headache, migraine Primary Care Physician: AMANDA VILLAFANA MD Provider Information Primary Provider: Pedro Syed DO Advanced Audio Production Manager:None The exam and treatment you received in the Emergency Department were for an urgent problem and are not intended as complete care. It is important that you follow up with a doctor, nurse practitioner,or physician???s credit assistant for ongoing care. If your symptoms become worse or you do not improve asexpected and you are unable to reach your usual health care provider, you should return to the Emergency Department. We are available 24 hours a day. APRYL DOWNS has been given the following list of patient education materials, prescriptions and follow-up instructions: Follow-up Instructions: With: Address: When: Brigido [address], [place] [address] [place] (1) In 3 days 01/25/2025 Comments: You can use the Zofran every 6 hours as needed for nausea and vomiting. Please follow-up with your primary care doctor and neurology for further evaluation management of your symptoms. Please return to the ED for any new or worsening symptoms. With: Address: When: AMANDA VILLAFANA [address] [place], [place] [id number] [place] (1) In 3 days In the event that this physician does not participate in your insurance network, please consult with your insurance company to find a nearby participating provider. Patient Education Materials: Migraine Headache, Wpdu-yr-Memx A MESSAGE TO ALL PATIENTS REGARDING OPIOIDS PRESCRIPTION OPIOIDS: WHAT YOU NEED TO KNOW Prescription opioids can be used to help relieve peqvjiyd-iy-ilxhfy pain and are often prescribed following a [...] your community drug take (more content not included)...[facility] HospitalXR Foot - left 3 Viewson 86-51-1080Rgmjxyv Result: Radiographs: AP/MO/LAT: Three views were taken today AP/MO/LAT foot: No fractures or dislocations seen excellent position alignment of the great toe joint fixation intact [facility] Presbyterian Medical CenterRadiology Study observation (narrative)[facility] HealthcareALL CBC WITH AUTO DIFFon 99-09-0909FJYMZULLD ABSOLUTE MIXZ1PYPX HealthcareBasophils/100 WBC (Bld)0.6 %0.2 - 2.0 %NOMS HealthcareEosinophils/100 WBC (Bld)1.6 %0.9 - 7.0 %NOM HealthcareErythrocyte distribution width (RBC) [Ratio]13.9 %11.0 - 15.0 %NOMS HealthcareHematocrit (Bld) [Volume fraction]37.9 %36.0 - 48.0 %NOMBothwell Regional Health CenterHemoglobin (Bld) [Mass/Vol]12.6 g/dL12.0 - 16.0 g/dLNOSaint Alexius HospitalIMMATURE GRANULOCYTES ABS AUTO0.02NOMS [facility]ma HealthImmature granulocytes/100 WBC (Bld)0.3 %0.0 - 0.5 %[facility] Memorial HospitalLYMPHOCYTES ABSOLUTE AUTO1.7NOMS [facility]ma HealthLymphocytes/100 WBC (Bld)23.4 %20.5 - 60.0 %Al[facility] J. Siteman Cancer CenterH (RBC) [Entitic mass]28.7 pg26.7 - 34.0 pgAlvin J. Siteman Cancer CenterHC (RBC) [Mass/Vol]33.2 g/dL29.9 - 35.2 g/dLWright Memorial HospitalMCV (RBC) [Entitic vol]86.3 fL 81.0 - 99.0 fLWright Memorial HospitalMONOCYTES ABSOLUTE AUTO0.7NOSaint Alexius Hospital Monocytes/100 WBC (Bld)9.2 %1.7 - 12.0 %[facility] Memorial HospitalNEUTROPHILS ABSOLUTE AUTO 4.6NOMS Summa HealthNeutrophils/100 WBC (Bld)64.9 %43.0 - 75.0 %[facility] Platelet mean volume (Bld) [Entitic vol]10.1 fL9.5 - 13.5 fLWright Memorial HospitalTB EO #0.1NOMS Summa HealthTB [id number] Summa HealthTB RBC4.39NOMS Summa HealthTB WBC 7NOMS HealthcareCLINISYNCNOMS HealthcareXR FOOT LT MIN 3Von 34-36-0660[place] [address] XRay Report Signed Patient: APRYL DOWNS MR#: [id number] : 1980 Acct:[id number] Age/Sex: 44 / F ADM Date: 01/02/25 Loc: LAB Attending Dr: EARNEST SALOMON M.D. Ordering Physician: EARNEST SALOMON M.D. Date of Service: 01/02/25 Procedure(s): XR foot LT min 3V Accession Number(s): [id number] cc: Amanda Villafana M.D.; EARNEST SALOMON M.D. [address] [place] [address] Patient Name: APRYL DOWNS MRN: [facility]:[id number] date: 1980 Sex: F Assigned Patient Location: LAB Current Patient Location: LAB Accession/Order Number: [id number] Exam Date: 01/02/2025 15:35 Report Date: 01/02/2025 [...] Jr., D.OGianna 01/02/2025 3:36 PM Dictation Location: [place] [address] Electronically authenticated by: [id number] Y Date: 01/02/2025 15:36 Dictated By: Alan Rowan M.D. Signed By: 01/02/25 1538 DD/ 1536 TD/TT: Payroll Administrative Assistant:ANGIEHRadiology, Radiologist, - 01/02/2025 [place] [address] XRay Report Signed Patient: APRYL DOWNS MR#: [id number] : 1980 Acct:[id number] Age/Sex: 44 / F ADM Date: 01/02/25 Loc: LAB Attending Dr: EARNEST SALOMON M.D. Ordering Physician: EARNEST SALOMON M.D. Date of Service: 01/02/25 Procedure(s): XR foot LT min 3V Accession Number(s): [id number] cc: Amanda Villafana M.D.; EARNEST SALOMON M.D. [place] [id number] Patient Name: APRYL DOWNS MRN: [facility]:[id number] date: 1980 Sex: F Assigned Patient Location: LAB Current Patient Location: LAB Accession/Order Number: [id number] Exam Date: 01/02/2025 15:35 Report Date: 01/02/2025 [...] Jr., D.OGianna 01/02/2025 3:36 PM Dictation Location: [place] [address] Electronically authenticated by: [id number] Y Date: 01/02/2025 15:36 Dictated By: Alan Rowan M.D. Signed By: 01/02/25 1538 DD/ 1536 TD/TT: Payroll Administrative Assistant: AMARUY HealthcareRadiology Study observation (narrative)NOMS HealthcareXR FOOT LT MIN 3VOrdered By: Radiologist Radiology on 08-58-4983NDZG Healthcare Work Phone: ecg 12-LEADon [phone] [address] Electrocardiograph Report Signed Patient: APRYL DOWNS MR#: [id number] : 1980 Acct:[id number] Age/Sex: 44 / F ADM Date: 12/24/24 Loc: CARD Attending Dr: EARNEST SALOMON M.D. Ordering Physician: EARNEST SALOMON M.D. Date of Service: 12/24/24 Procedure(s): ECG 12 lead Accession Number(s): [id number] cc: [facility] Test Date: 2024-12-24 Pat Name: APRYL DOWNS Department: Room: - Gender: Female Datapower Developer: : 1980 Requested By: [id number] Order Number: [id number] Reading MD: CESAR PINEDA M.D. Measurements Intervals [place] Rate: 69 P: 36 KS: 121 QRS: 44 QRSD: 88 T: 47 QT: 398 QTc: 429 Interpretive Statements SINUS RHYTHM Normal ECG Compared to ECG 08/13/2021 17:51:10 ST (T wave) deviation no longer present Possible ischemia no longer present Electronically Signed On 12-24-2024 16:12:07 EDT by CESAR PINEDA M.D. Dictated By: CESAR PINEDA Signed By: 12/24/24 1612 12/24/24 1612 DD/ 1323 TD/TT: Payroll Administrative Assistant:TBHRadiology, Radiologist, - 12/24/2024 [place] [address] Electrocardiograph Report Signed Patient: APRYL DOWNS MR#: [id number] : 1980 Acct:[id number] Age/Sex: 44 / F ADM Date: 12/24/24 Loc: CARD Attending Dr: EARNEST SALOMON M.D. Ordering Physician: EARNEST SALOMON M.D. Date of Service: 12/24/24 Procedure(s): ECG 12 lead Accession Number(s): [id number] cc: [facility] Test Date: 2024-12-24 Pat Name: APRYL DOWNS Department: Room: - Gender: Female Datapower Developer: : 1980 Requested By: 0719 Order Number: [id number] Reading MD: CESAR PINEDA M.D. Measurements Intervals [place] Rate: 69 P: 36 KS: 121 QRS: 44 QRSD: 88 T: 47 QT: 398 QTc: 429 Interpretive Statements SINUS RHYTHM Normal ECG Compared to ECG 08/13/2021 17:51:10 ST (T wave) deviation no longer present Possible ischemia no longer present Electronically Signed On 12-24-2024 16:12:07 EDT by CESAR PINEDA M.D. Dictated By: CESAR PINEDA Signed By: 12/24/24 1612 12/24/24 1612 DD/ 1323 TD/TT: Payroll Administrative Assistant: AMAURY HealthcareRadiology Study observation (narrative)[facility] HospitalEC 12-LEAD Ordered By: Radiologist Radiology on 15-09-4773OZVM Healthcare Work Phone: basophils Auto (Bld) [#/Vol]on 04-70-5728Deflllvrz (Bld) [#/Vol]0.0 10 3/uL0.0-0.1FDayton VA Medical CenterBasophils/100 WBC Auto (Bld)on 46-88-0839Yinrsbtlt/100 WBC (Bld)0.6 %0.2-2.0[facility] HospitalEosinophils/100 WBC Auto (Bld)on 84-47-6986Whhopiixjbc/100 WBC (Bld)7.0 %0.9-7.0[facility] HospitalErythrocyte distribution width Auto (RBC) [Ratio]on 44-48-1162Htfaribxwyi distribution width (RBC) [Ratio]13.6 %11.0-15.0[facility] HospitalGlucose mean value [Mass/volume] in Blood Estimated from glycated hemoglobinon 28-87-2220Yrllakn glucose Estimated from glycated hemoglobin (Bld) [Mass/Vol]123 mg/dLAvita Health System Galion HospitalHematocrit Auto (Bld) [Volume fraction]on 15-86-5569Abccfkoinw (Bld) [Volume fraction]40.6 %36.0-48.0[facility] HospitalHemoglobin [Mass/volume] in Bloodon 44-44-5833Ryubgvnhov (Bld) [Mass/Vol]13.1 g/dL12.0-16.0 [facility] HospitalLaboratory - Chemistry and Chemistry - challengeon 82-10-2673Anrbnrpi [Mass/Vol]14.0 ng/mL8.0-252.0[facility] HospitalLaboratory - Hematology and Cell countson 28-52-9651McT7d (Bld) [Mass fraction]5.9 %4.5-6.2FDayton VA Medical CenterComment on above:ADA RECOMMENDED LIMIT 4.0 - 6.0ADA THERAPEUTIC TARGET < 7.0ACTION SUGGESTED> 7.0 Immature granulocytes/100 WBC (Bld)0.3 %0.0-0.5FDayton VA Medical Center Leukocytes [#/volume] corrected for nucleated erythrocytes in Blood by Automated counon 13-72-1708BLP corrected for nucl RBC Auto (Bld) [#/Vol]6.4 10 3/uL 4.0-11.0[facility] HospitalLymphocytes Auto (Bld) [#/Vol]on 61-80-9045Ippvxvkteno (Bld) [#/Vol]1.3 10 3/uL1.2-3.8[facility] HospitalLymphocytes/100 WBC Auto (Bld)on 91-14-3606Beghicevfmy/100 WBC (Bld)20.8 % 20.5-60.0[facility] HospitalH Auto (RBC) [Entitic mass]on 81-15-5351PKZ (RBC) [Entitic mass]28.2 pg26.7-34.0[facility] HospitalMCHC Auto (RBC) [Mass/Vol]on 16-80-4445MDED (RBC) [Mass/Vol]32.3 g/dL 29.9-35.2FDayton VA Medical CenterMCV Auto (RBC) [Entitic vol]on 54-95-7417AJH (RBC) [Entitic vol]87.5 fL81.0-99.0[facility] HospitalMonocytes Auto (Bld) [#/Vol]on 75-33-4279Qhfdpajmr (Bld) [#/Vol]0.5 10 3/uL0.3-0.8[facility] HospitalMonocytes/100 WBC Auto (Bld)on 34-97-2655Xhylplqwi/100 WBC (Bld)7.3 %1.7-12.0[facility] Neutrophils Auto (Bld) [#/Vol]on 92-73-2661Kbhgjftxodu (Bld) [#/Vol]4.1 10 3/uL 1.4-6.5FDayton VA Medical CenterNeutrophils/100 WBC Auto (Bld)on 25-72-4609Zyosvbqptdn/100 WBC (Bld)64.0 %43.0-75.0[facility] HospitalNo Panel Informationon 93-38-0307Zsqtxkgkfme # (Auto)0.5 10 3/uL0.0-0.7 [facility] HospitalImmature Granulocyte # (Auto)0.02 10 3/uL 0.00-0.03[facility] HospitalPlatelet mean volume Auto (Bld) [Entitic vol]on 49-68-7090Lgktmxqc mean volume (Bld) [Entitic vol]10.1 fL 9.5-13.5FDayton VA Medical CenterPlatelets Auto (Bld) [#/Vol]on 15-73-3159Pixbmsfld (Bld) [#/Vol]235 10 3/mJ694-740GfvcuszzuAvita Health System Galion HospitalRBC Auto (Bld) [#/Vol]on 78-77-8826JPW (Bld) [#/Vol]4.64 10 6/uL4.20-5.40 [facility] HospitalCHEMISTRYOrdered By: SYSTEM SYSTEM on 17-56-8847Lttoims [Mass/Vol]4.3 g/dLNormal3.3 - 5.0 gm/dLFT Remisol Albumin/Globulin [Mass ratio]1.1 {ratio}Normal1.1 - 2.2[facility] RemisolALP [Catalytic activity/Vol]55 [iU]/rZjbksd53 - 98 Int._Unit/LFTMC RemisolALT No additional P-5'-P [Catalytic activity/Vol]17 [iU]/dNormal6 - 46 Int._Unit/LFTMC RemisolAnion gap [Moles/Vol]9 mmol/LNormal6 - 16 mEq/LFTMC RemisolAST [Catalytic activity/Vol]19 [iU]/dNormal5 - 43 Int._Unit/LFTMC RemisolBilirubin [Mass/Vol] 0.6 mg/dLNormal0.0 - 1.1 mg/dLFTMC RemisolCalcium [Mass/Vol]9.3 mg/dLNormal8.9 - 11.1 mg/dLFT RemisolChloride [Moles/Vol]108 mmol/XLatlea230 - 111 mmol/LFTMC RemisolCO2 [Moles/Vol]26 mmol/GPqdqwk68 - 31 mmol/LFTMC RemisolCreatinine [Mass/Vol]0.7 mg/dLNormal0.5 - 1.3 mg/dLFT RemisolFree T4 [Mass/Vol]1.24 ng/dL Normal0.58 - 1.64 ng/dLFT RemisolGFR/1.73 sq M.predicted among non-blacks MDRD (S/P/Bld) [Vol rate/Area]109 mL/min/1.73 l9Faiorr>=59mL/min/1.73 m2[facility] Chem S Globulin (S) [Mass/Vol]3.8 g/dLNormal1.4 - 4.0 gm/dLFT RemisolGlucose [Mass/Vol]125 mg/aMJriefs95 - 199 mg/dLNORMAN SPECIALTY H[facility] RemisolPotassium [Moles/Vol]4.1 mmol/LNormal3.5 - 5.3 mmol/LFTMC RemisolProtein [Mass/Vol]8.1 g/dLHigh6.0 - 7.8 gm/dLNORMAN SPECIALTY HOS[facility] RemisolSodium [Moles/Vol]139 mmol/JZvvgwp213 - 145 mmol/LFTMC Remisol TSH Qn0.11 m[IU]/LLow0.34 - 5.60 mcIU/mLNORMAN SPECIALTY [facility] RemisolUrea nitrogen [Mass/Vol]14 mg/dLNormal5 - 21 mg/dLNORMAN SPECIALTY [facility] RemisolUrea nitrogen/Creatinine [Mass ratio]20 mg/mg Usulri44 - 20[facility] RemisolCHEMISTRYOrdered By: Mateo Thomason on 03-08-2023 HbA1c (Bld) [Mass fraction]5.8 %Normal<=5.9%[facility] ChemAutoSSCULTURE URINEon 56-74-9952BCXJQLT URINEIsolate 1 Klebsiella pneumoniae >100,000 cfu/mL of ORGANISM 1 Klebsiella pneumoniae ANTIBIOTIC M.I.C RX STATUS Ampicillin 16 R F Ampicillin/Sulbactam 4 S F Piperacillin/Tazobactam <=4 S F Cefazolin <=4 S F Ceftazidime <=1 S F Ceftriaxone <=1 S F Ertapenem <=0.5 S F Imipenem <=0.25 S F Amikacin <=2 S F Gentamicin <=1 S F Tobramycin <=1 S F Ciprofloxacin <=0.25 S F Levofloxacin <=0.12 S F Nitrofurantoin 64 I F Trimethoprim/Sulfamethoxazole <=20 S FNormalPromedica Defiance Regional HospitalComment on above:Performed By: #### JUAN MANUEL UMVANESSARO #### [facility] [address] [place] [address] Dr. Dandy Stephen URINE PROFILEon 90-96-3543Vfeljqiss Ql (U)NegativeNormal NEGATIVEPromedica Defiance Regional HospitalComment on above:Performed By: #### JUAN MANUEL UMICRO #### [facility] [address] [place] [address] Dr. Dandy DobsonClarity (U)SL CLOUDYAbnormalCLEARThBlanchard Valley Health SystemComment on above:Performed By: #### JUAN MANUEL UMICRO #### [facility] [address] [place] [address] Dr. Dandy Saleem (U)LT. YELLOWNormalYELLOWPromedica Defiance Regional HospitalComment on above:Performed By: #### JUAN MANUEL UMVANESSARO #### [facility] [address] [place] [address] Dr. Dandy Caba micrscopic examination will be performed if indicated. NormalPromedica Defiance Regional HospitalComment on above:Performed By: #### JUAN MANUEL UMVANESSARO #### [facility] [address] [place] [address] Dr. Dandy Mccabeose Ql (U)NegativeNormalNEGATIVEPromedica Defiance Regional HospitalComment on above:Performed By: #### JUAN MANUEL UMICRO #### [facility] [address] [place] [address] Dr. Dandy DobsonHemoglobin Ql (U)SMALLAbnormalNEGATIVEThe [facility] Comment on above:Performed By: #### HELEN ZAMBRANORO #### [facility] [address] [place] [address] Dr. Dandy DobsonKetones Ql (U)NegativeNormalNEGATIVEThe [facility] HospitalComment on above:Performed By: #### HELEN ZAMBRANORO #### [facility] [address] [place] [address] Dr. Dandy TorresOCYTESSMALLAbnormalNEGATIVEThe [facility] HospitalComment on above:Performed By: #### HELEN ZAMBRANORO #### [facility] [address] [place] [address] Dr. Dandy DobsonNitrite Ql (U)NegativeNormalNEGATIVEPromedica Defiance Regional HospitalComment on above:Performed By: #### HELEN ZAMBRANORO #### [facility] [address] [place] [address] Dr. Dandy DobsonpH (U)6.0 [pH]Normal5-9The [facility] HospitalComment on above: Performed By: #### HELEN ZAMBRANORO #### [facility] [address] [place] [address] Dr. Dandy DobsonProtein (U) [Mass/Vol]30 mg/dLAbnormalNEGATIVE/ TRACEThe [facility] HospitalComment on above:Performed By: #### HELEN ZAMBRANORO #### [facility] [address] [place] [address] Dr. Dandy DobsonSPEC GRAVITY>=1.748Wrhkpduv6.005-<=1.025The [facility] Comment on above:Performed By: #### HELEN ZAMBRANORO #### [facility] [address] [place] [address] Dr. Dandy DobsonUR MICRO INDINDICATEDNormalThe [facility] HospitalComment on above: Performed By: #### VERONICA ZAMBRANO #### [facility] [address] [place] [address] Dr. Dandy Carr Qn (U)1.0 {Sarahi'U}/dLNormal0.2 - 1.0The [facility] on above:Performed By: #### ERUR, UMICRO #### [facility] [address] [place] [address] Dr. Dandy DobsonPREGNANCY URon 21-64-1898OCLCOERQH, QUALNegativeNormalNEGATIVEThe [facility] on above:Performed By: #### PREGU #### [facility] [address] [place] [address] Dr. Dandy Rao MICROSCOPIC ONLYon 32-38-4317LJJQHJKSSTWONQwfpxlhqBBLQ SEEN [facility] on above:Performed By: #### ERUEveline, UMICRO #### [facility] [address] [place] [address] Dr. Dandy Chris identified Cx Nom (U)INDICATEDKettering Health Troy on above:Performed By: #### ERUEveline, UMICRO #### [facility] [address] [place] [address] Dr. Dandy Diego SEENNormalNONE SEENHolzer Hospital on above:Performed By: #### ERUEveline, UMICRO #### [facility] [address] [place] [address] Dr. Dandy Santoystals LM Nom (Urine sed)NONE SEENNormalNONE SEENHolzer Hospital on above:Performed By: #### ERUR, UMICRO #### [facility] [address] [place] [address] Dr. Dorman ChangEpithelial cells LM Ql (Urine sed)MODERATEAbnormalNONE SEEN /RARE The [facility] HospitalComhutzel women's hospital on above:Performed By: #### ERUR, UMICRO #### [facility] [address] [place] [address] Dr. Dandy BrownCOUSNONE SEENNormalNONE SEENHolzer Hospital on above:Performed By: #### ERUR UMICRO #### [facility] [address] [place] [address] Dr. Dadny DobsonJiaqwBWQ72-97Heraxcli1-4Mnj [facility] Hospitalment on above: Performed By: #### VERONICA ZAMBRANO #### [facility] [address] [place] [address] Dr. Dandy DobsonWBC (U) [#/Vol]/uLAbnormalNONE SEENThe [facility] HospitalComment on above:Performed By: #### VERONICA ZAMBRANO #### [facility] [address] [place] [address] Dr. Dandy Salgado T4on 50-53-0386Zklr T4 [Mass/Vol]1.10 ng/dLNormal0.76-1.46 The [facility] HospitalComment on above:Performed By: #### VERONICA ZAMBRANO #### [facility] [address] [place] [address] Dr. Dandy Lamb 13-11-1378YQC2.204 uIU/mLCritically low0.358-3.740The [facility] Hospitalment on above:Performed By: #### VERONICA ZAMBRANO #### [facility] [address] [place] [address] Dr. Dandy Oro AUTO DIFFon 32-85-0443YEZZ #0.0 103/ulNormal0.0-0.1The [facility] Hospitalment on above:Performed By: #### CBC #### [facility] [address] [place] [address] Dr. Dandy DobsonBasophils/100 WBC (Bld)0.4 %Normal0.2-2.0The [facility] Comment on above:Performed By: #### CBC #### [facility] [address] [place] [address] Dr. Dandy Hernandez #0.1 103/ulNormal0.0-0.7The [facility] HospitalComment on above: Performed By: #### CBC #### [facility] [address] [address] [address] Dandy Dudleyosinophils/100 WBC (Bld)2.1 %Normal0.9-7.0The [facility] Comment on above:Performed By: #### CBC #### [facility] [address] [place] [address] Dr. Dandy Dudleyrythrocyte distribution width (RBC) [Ratio]13.7 %Bchlxn45.0-15.0 The [facility] HospitalComment on above:Performed By: #### CBC #### [facility] [address] [place] [address] Dr. Dandy DobsonHematocrit (Bld) [Volume fraction]38.7 %Fmgayh59.0-48.0The [facility] HospitalComment on above:Performed By: #### CBC #### [facility] [address] [place] [address] Dr. Dandy DobsonHemoglobin (Bld) [Mass/Vol]12.6 g/dQPcwzck48.0-16.0The [facility] HospitalComment on above:Performed By: #### CBC #### [facility] [address] [place] [address] Dr. Dandy Gutierrez #0.01 10e3/ulNormal0.00-0.03The [facility] HospitalComment on above:Performed By: #### CBC #### [facility] [address] [place] [address] Dr. Dandy DobsonIG %0.2 %Normal0.0-0.5The [facility] Hospitalment on above: Performed By: #### CBC #### [facility] [address] [place] [address] Dr. Dandy JiangMPH #1.6 103/ulNormal1.2-3.8The [facility] HospitalComment on above:Performed By: #### CBC #### [facility] [address] [place] [address] Dr. Dandy Jiangmphocytes/100 WBC (Bld)27.5 %Olaprn12.5-60.0The [facility] HospitalComment on above:Performed By: #### CBC #### [facility] [address] [address] [address] Dandy Nunez DIFF REQNONormalThe [facility] HospitalComment on above: Performed By: #### CBC #### [facility] [address] [place] [address] Dr. Dandy Newsome (RBC) [Entitic mass]27.1 itLzxypp08.7-34.0The [facility] HospitalComment on above:Performed By: #### CBC #### [facility] [address] [place] [address] Dr. Dandy Newsome (RBC) [Mass/Vol]32.6 g/wRGyqegm28.9-35.2The [facility] HospitalComment on above:Performed By: #### CBC #### [facility] [address] [place] [address] Dr. Dandy Newsome (RBC) [Entitic vol]83.2 iVLahxbq00.0-99.0The [facility] HospitalComment on above:Performed By: #### CBC #### [facility] [address] [place] [address] Dr. Dandy Hermosillo #0.6 103/ulNormal0.3-0.8The [facility] HospitalComment on above:Performed By: #### CBC #### [facility] [address] [place] [address] Dr. Dandy Baileyocytes/100 WBC (Bld)9.9 %Normal1.7-12.0The [facility] Comment on above:Performed By: #### CBC #### [facility] [address] [place] [address] Dr. Dandy Waddell #3.4 103/ulNormal1.4-6.5The [facility] Hospitalment on above:Performed By: #### CBC #### [facility] [address] [place] [address] Dr. Dandy Lingutrophils/100 WBC (Bld)59.9 %Zapzmd50.0-75.0The [facility] HospitalComment on above:Performed By: #### CBC #### [facility] [address] [address] [address] Dandy Burrislet mean volume (Bld) [Entitic vol]9.7 fLNormal9.5-13.5The [facility] on above:Performed By: #### CBC #### [facility] [address] [place] [address] Dr. Dandy DobsonPLT230 103/jvXdvjfp885-482Iwh [facility] HospitalComhutzel women's hospital on above: Performed By: #### CBC #### [facility] [address] [place] [address] Dr. Dandy DobsonRBC4.65 106/ulNormal4.20-5.40The [facility] on above:Performed By: #### CBC #### [facility] [address] [place] [address] Dr. Dandy DobsonWBC5.6 103/ulNormal4.0-11.0The [facility] on above: Performed By: #### CBC #### [facility] [address] [place] [address] Dr. Dandy DobsonFERRITINon 25-25-7629Ohavothb [Mass/Vol]52.0 ng/mLNormal6.2-137.0 [facility] on above:Performed By: #### VITB12, IRON, FT4, FERR #### [facility] [address] [place] [address] Dr. Dandy DobsonFREE T4on 57-92-8365Gbzr T4 [Mass/Vol]1.69 ng/dLCritically high 0.76-1.46The [facility] on above:Performed By: #### VITB12, IRON, FT4, FERR #### [facility] [address] [place] [address] Dr. Dandy DobsonGLYCOHEMOGLOBIN A1Con 77-26-8217YZN RECOMMENDATIONSEE BELOWNormal The [facility] HospitalComhutzel women's hospital on above:Result Comment: ADA RECOMMENDED LIMIT 4.0 - 6.0 ADA THERAPEUTIC TARGET < 7.0 ACTION SUGGESTED > 7.0Performed By: #### JUAN MANUEL UMICRO #### [facility] [address] [place] [address] Dr. Dandy DobsnoGlucose [Mass/Vol]134 mg/dLNormalThe [facility] HospitalComment on above:Performed By: #### JUAN MANUEL UMICRO #### [facility] [address] [place] [address] Dr. Dandy DobsonHbA1c (Bld) [Mass fraction]6.3 %Critically high4.5-6.2The [facility] HospitalComment on above:Performed By: #### JUAN MANUEL UMICRO #### [facility] [address] [place] [address] Dr. Dandy Ying 40-49-6871Lpoq [Mass/Vol]42.0 ug/dLCritically low 50.0-170.0The [facility] HospitalComment on above:Performed By: #### VITB12, IRON, FT4, FERR #### [facility] [address] [place] [address] Dr. Dandy DobsonPROF 14(COMP METB)on 95-70-1796Ducwydj [Mass/Vol]3.8 g/dLNormal 3.4-5.0The [facility] HospitalComment on above:Performed By: #### JUAN MANUEL UMICRO #### [facility] [address] [place] [address] Dr. Dandy DobsonAlbumin/Globulin [Mass ratio]1.0 {ratio}NormalThe [facility] HospitalComment on above:Performed By: #### JUAN MANUEL UMICRO #### [facility] [address] [place] [address] Dr. Dandy Lopez [Catalytic activity/Vol]66 U/KAbzvfs09-599Dyq [facility] HospitalComment on above:Performed By: #### JUAN MANUEL UMICRO #### [facility] [address] [place] [address] Dr. Dandy Meier [Catalytic activity/Vol]20 U/VQqujep70-61Nix Magdiel HospitalComment on above:Performed By: #### JUAN MANUEL UMICRO #### [facility] [address] [address] [address] Dandy DobsonAnion gap [Moles/Vol]11.3 mmol/LNormalThe [facility] Comment on above:Performed By: #### JUAN MANUEL UMICRO #### [facility] [address] [address] [address] Dandy DobsonAST [Catalytic activity/Vol]16 U/XUqpddj97-89Isl [facility] HospitalComment on above:Performed By: #### JUAN MANUEL UMICRO #### [facility] [address] [place] [address] Dr. Dandy DobsonBilirubin [Mass/Vol]0.3 mg/dLNormal0.2-1.0[facility] Comment on above:Performed By: #### JUAN MANUEL UMICRO #### [facility] [address] [place] [address] Dr. Dandy DobsonCalcium [Mass/Vol]9.0 mg/dLNormal8.5-10.1[facility] Comment on above:Performed By: #### JUAN MANUEL UMICRO #### [facility] [address] [place] [address] Dr. Dandy DobsonChloride [Moles/Vol]103 mmol/NDoxsbc00-985GzfPromedica Defiance Regional Hospital Comment on above:Performed By: #### JUAN MANUEL UMICRO #### [facility] [address] [place] [address] Dr. Dandy DobsonCO2 [Moles/Vol]28.2 mmol/MZpamhh50.0-32.0The [facility] Comment on above:Performed By: #### JUAN MANUEL UMICRO #### [facility] [address] [place] [address] Dr. Dandy DobsonCreatinine [Mass/Vol]0.57 mg/dLNormal0.55-1.02The [facility] HospitalComment on above:Performed By: #### JUAN MANUEL UMICRO #### [facility] [address] [place] [address] Dr. Dandy DudleyGFR-AF ISRAELI>60Normal>=60[facility] HospitalComment on above:Performed By: #### VERONICA ZAMBRANO #### [facility] [address] [address] [address] Dandy DudleyGFR-NON AF ISRAELI>60Normal>=60The [facility] HospitalComment on above:Performed By: #### VERONICA ZAMBRANO #### [facility] [address] [address] [address] Dandy DobsonGlobulin (S) [Mass/Vol]3.7 g/dLNormalThe [facility] HospitalComment on above:Performed By: #### VEORNICA ZAMBRANO #### [facility] [address] [place] [address] Dr. Dandy DobsonGlucose [Mass/Vol]107 mg/dLCritically dfcw87-656Evi [facility] HospitalComment on above:Performed By: #### VERONICA ZAMBRANO #### [facility] [address] [place] [address] Dr. Dandy DobsonPotassium [Moles/Vol]3.5 mmol/LNormal3.5-5.1[facility] Comment on above:Performed By: #### HELEN ZAMBRANORO #### [facility] [address] [place] [address] Dr. Dandy DobsonProtein [Mass/Vol]7.5 g/dLNormal6.4-8.2The [facility] Comment on above:Performed By: #### HELEN ZAMBRANORO #### [facility] [address] [place] [address] Dr. Dandy DobsonSodium [Moles/Vol]139 mmol/CLftlkc379-901OsnPromedica Defiance Regional Hospital Comment on above:Performed By: #### HELEN ZAMBRANORO #### [facility] [address] [place] [address] Dr. Dandy DobsonUrea nitrogen [Mass/Vol]12.0 mg/dLNormal7.0-18.0The [facility] HospitalComment on above:Performed By: #### VERONICA ZAMBRANO #### [facility] [address] [address] [address] Dandy DobsonUrea nitrogen/Creatinine [Mass ratio]21.1 mg/mgNoProMedica Memorial HospitalComhutzel women's hospital on above:Performed By: #### VERONICA ZAMBRANO #### [facility] [address] [address] [address] Dandy DobsonTSHon 93-42-5503NBC3.015 uIU/mLCritically low0.358-3.740The [facility] on above:Performed By: #### HELEN ZAMBRANORO #### [facility] [address] [place] [address] Dr. Dandy DobsonVITAMIN B12on 28-16-0732Hilszfrvd (Vitamin B12) [Mass/Vol]485.0 pg/oWGeysmb300.0-986.0The [facility] on above:Performed By: #### VITB12, IRON, FT4, FERR #### [facility] [address] [place] [address] Dr. Dandy DobsonGLYCOHEMOGLOBIN A1Con 31-04-7704BEM RECOMMENDATIONSEE BELOWMercy Health Perrysburg Hospital on above:Result Comment: ADA RECOMMENDED LIMIT 4.0 - 6.0 ADA THERAPEUTIC TARGET < 7.0 ACTION SUGGESTED > 7.0Performed By: #### A1C #### [facility] [address] [place] [address] Dr. Dandy DobsonGlucose [Mass/Vol]143 mg/dLNoFirelands Regional Medical Center on above:Performed By: #### A1C #### [facility] [address] [place] [address] Dr. Dandy DobsonHbA1c (Bld) [Mass fraction]6.6 %Critically high4.5-6.2The [facility] on above:Performed By: #### A1C #### [facility] [address] [place] [address] Dr. Dandy DobsonLIPID PROFILEon 18-39-1709YVFP-HDL RATIO NORMSEE BELOWNormalThe [facility] HospitalComment on above:Result Comment: 3.3 - 4.4 LOW RISK 4.4 - 7.1 AVERAGE RISK 7.1 - 11.0 MODERATE RISK >11.0 HIGH RISKPerformed By: #### JUAN MANUEL UMICRO #### [facility] [address] [place] [address] Dr. Dandy DobsonCholesterol [Mass/Vol]138 mg/dLNormal<=200The [facility] Comment on above:Performed By: #### JUAN MANUEL UMICRO #### [facility] [address] [place] [address] Dr. Dandy DobsonCholesterol in HDL [Mass/Vol]46 mg/mHKbxhml58-19GwePromedica Defiance Regional HospitalComment on above:Performed By: #### JUAN MANUEL UMICRO #### [facility] [address] [place] [address] Dr. Dandy DobsonCholesterol in LDL [Mass/Vol]62.4 mg/dLNoProMedica Memorial HospitalComment on above:Performed By: #### JUAN MANUEL UMICRO #### [facility] [address] [place] [address] Dr. Dandy Valdovinosestervernell.total/Cholesterol in HDL [Mass ratio]3.0 {ratio} NormalThe [facility] HospitalComment on above:Performed By: #### JUAN MANUEL UMICRO #### [facility] [address] [place] [address] Dr. Dandy DobsonHDGerda NORMAL> or = 60 mg/dl - LOW CARDIOVASCULAR RISK <40 mg/dl - HIGH CARDIOVASCULAR RISKChildren's Hospital for RehabilitationComment on above:Performed By: #### JUAN MANUEL UMICRO #### [facility] [address] [place] [address] Dr. Dandy DobsonLDL CALC NORMALSECleveland Clinic Children's Hospital for RehabilitationComment on above:Result Comment: <100 mg/dl OPTIMAL 100 - 129 mg/dl NEAR OR ABOVE OPTIMAL 130 - 159 mg/dl BORDERLINE HIGH 160 - 189 mg/dl HIGH >190 mg/dl VERY HIGH Performed By: #### JUAN MANUEL UMICRO #### [facility] [address] [address] [address] Dandy DobsonTriglyceride [Mass/Vol]148 mg/dLNormal<=150The [facility] Comment on above:Performed By: #### JUAN MANUEL UMICRO #### [facility] [address] [address] [address] Dandy DobsonVLDL CALC29.6 mg/dLNormalThe [facility] HospitalComment on above: Performed By: #### JUAN MANUEL UMICRO #### [facility] [address] [place] [address] Dr. Dandy DobsonPROF CHEM 8 (BAS METB)on 08-26-3995Wwepv gap [Moles/Vol]9.4 mmol/LNormalThe [facility] HospitalComment on above:Performed By: #### JUAN MANUEL UMICRO #### [facility] [address] [place] [address] Dr. Dandy DobsonCalcium [Mass/Vol]8.7 mg/dLNormal8.5-10.1The [facility] Comment on above:Performed By: #### JUAN MANUEL UMICRO #### [facility] [address] [place] [address] Dr. Dandy DobsonChloride [Moles/Vol]104 mmol/IPqpykq55-759Bev [facility] Comment on above:Performed By: #### JUAN MANUEL UMICRO #### [facility] [address] [place] [address] Dr. Dandy DobsonCO2 [Moles/Vol]28.8 mmol/CFuewpu64.0-32.0The [facility] Comment on above:Performed By: #### JUAN MANUEL UMICRO #### [facility] [address] [place] [address] Dr. Dandy DobsonCreatinine [Mass/Vol]0.67 mg/dLNormal0.55-1.02The Barnesville HospitalComment on above:Performed By: #### JUAN MANUEL UMICRO #### [facility] [address] [place] [address] Dr. Yilan ChangEGFR-AF ISRAELI>60Normal>=60The [facility]ville HospitalComment on above:Performed By: #### VERONICA ZAMBRANO #### [facility] [address] [place] [address] Dr. Dandy DudleyGFR-NON AF ISRAELI>60Normal>=60The [facility]ville HospitalComment on above:Performed By: #### VERONICA ZAMBRANO #### [facility] [address] [place] [address] Dr. Dandy DobsonGlucose [Mass/Vol]120 mg/dLCritically hpfk35-563Jmv [facility]ville HospitalComment on above:Performed By: #### VERONICA ZAMBRANO #### [facility] [address] [place] [address] Dr. Dandy DobsonPotassium [Moles/Vol]4.2 mmol/LNormal3.5-5.1[facility] Comment on above:Performed By: #### VERONICA ZAMBRANO #### [facility] [address] [place] [address] Dr. Dandy DobsonSodium [Moles/Vol]138 mmol/SVddnso268-883Ymz [facility] Comment on above:Performed By: #### VERONICA ZAMBRANO #### [facility] [address] [place] [address] Dr. Dandy DobsonUrea nitrogen [Mass/Vol]17.0 mg/dLNormal7.0-18.0The [facility] HospitalComment on above:Performed By: #### VERONICA ZAMBRANO #### [facility] [address] [place] [address] Dr. Dandy DobsonUrea nitrogen/Creatinine [Mass ratio]25.4 mg/mgNormalThe [facility]ville HospitalComment on above:Performed By: #### HELEN ZAMBRANORO #### [facility] [address] [place] [address] Dr. Dandy OroscoI BRAIN WO CONon [id number] BRAIN WO CONEXAMINATION: MRI BRAIN WO CON, 02/15/2022 10:45 AM [...] Electronically authenticated by: MANJU CHAMPAGNE Date: 2022-02-15 16:53[facility] for RehabilitationCHEMISTRYOrdered By: SYSTEM SYSTEM on 45-40-1153Mmiuqeer I.cardiac [Mass/Vol]4.40 pg/mLLow10.10 - 27.10 pg/mLFTMC RemisolAnion gap [Moles/Vol]12 mmol/LNormal6 - 16 mEq/LFTMC RemisolCalcium [Mass/Vol]8.8 mg/dLLow 8.9 - 11.1 mg/dLFTMC RemisolChloride [Moles/Vol]102 mmol/OZcvvkp359 - 111 mmol/L [facility] RemisolCO2 [Moles/Vol]24 mmol/RXwohlg26 - 31 mmol/LFTMC RemisolCreatinine [Mass/Vol]0.6 mg/dLNormal0.5 - 1.3 mg/dLFTMC RemisolGFR/1.73 sq M.predicted among blacks MDRD (S/P/Bld) [Vol rate/Area]mL/min/1.73 y5Hoeoaa>=59mL/min/1.73 m2[facility] Chem SGFR/1.73 sq M.predicted among non-blacks MDRD (S/P/Bld) [Vol rate/Area]mL/min/1.73 w0Jpjzxg>=59mL/min/1.73 m2[facility] Chem SGlucose [Mass/Vol]150 mg/sPIjwilb46 - 199 mg/dLNORMAN [facility]TY [facility] RemisolLipase [Catalytic activity/Vol]38 U/L Pmyyam81 - 58 unit/LFTMC RemisolMagnesium [Mass/Vol]1.9 mg/dLNormal1.3 - 2.4 mg/dLNOR[facility] RemisolPotassium [Moles/Vol]3.1 mmol/LLow3.5 - 5.3 mmol/LFTMC Remisol Sodium [Moles/Vol]135 mmol/LScymml937 - 145 mmol/LFTMC RemisolTroponin I.cardiac [Mass/Vol]4.10 pg/mLLow10.10 - 27.10 pg/mLNOR[facility] RemisolUrea nitrogen [Mass/Vol] 10 mg/dLNormal5 - 21 mg/dLNORMAN [facility]TY [facility] RemisolUrea nitrogen/Creatinine [Mass ratio]17 mg/liGubghm78 - 20[facility] RemisolCHEMISTRYOrdered By: Ciraa Nugent on 02-04-2022 Natriuretic peptide B (Bld) [Mass/Vol]33 pg/mLNormal5 - 80 pg/mLNORMAN [facility]TY [facility] HemeManSS CHEMISTRYOrdered By: Froilan Nye on 90-77-7532Zklblpg [Mass/Vol]144 mg/aUUemd46 - 99 mg/dLNORMAN SPECIALTY H[facility] POC SubsectionPOC Device [id number] Interpretation CodeNOR[facility]TY [facility] POC SubsectionPOC User [id number] Interpretation CodeNOR[facility] POC SubsectionPOC [email or web address], ERICInvalid Interpretation CodeNOR[facility]TY [facility] POC Subsection COAGULATIONOrdered By: Christina Colindres on 73-92-3529xELM Coag (PPP) [Time]32.0 s Wdacvk62.1 - 36.5 second(s)[facility] Auto CoagINR Coag (PPP) [Relative time]1.0 {INR} Invalid Interpretation CodeNORMAN SPECIALTY HOSPITAL [facility] Auto CoagPT Coag (PPP) [Time]11.6 tYpqngf13.2 - 12.9 second(s)[facility] Auto CoagHEMATOLOGYOrdered By: SYSTEM SYSTEM on 02-04-2022 Basophils/100 WBC (Bld)0.9 %Normal0.0 - 2.0 %[facility] HemeAutoSSBasophils/Leukocytes Auto (Bld) [Pure # fraction]0.1 E9/LNormal0.0 - 0.2 E9/LFTMC HemeAutoSS Eosinophils/100 WBC (Bld)1.2 %Normal0.0 - 8.0 %[facility] HemeAutoSS Eosinophils/Leukocytes Auto (Bld) [Pure # fraction]0.1 E9/LNormal0.0 - 0.5 E9/L [facility] HemeAutoSSLymphocytes/100 WBC (Bld)27.8 %Rairls14.0 - 50.0 %[facility] HemeAutoSS Lymphocytes/Leukocytes Auto (Bld) [Pure # fraction]2.0 E9/LNormal1.0 - 4.0 E9/L [facility] HemeAutoSSMonocytes/100 WBC (Bld)7.0 %Normal4.0 - 14.0 %[facility] HemeAutoSS Monocytes/Leukocytes Auto (Bld) [Pure # fraction]0.5 E9/LNormal0.2 - 1.0 E9/L [facility] HemeAutoSSNeutrophils/100 WBC (Bld)63.1 %Mbmdiz71.0 - 75.0 %[facility] HemeAutoSS Neutrophils/Leukocytes Auto (Bld) [Pure # fraction]4.6 E9/LNormal2.0 - 7.5 E9/L [facility] HemeAutoSSHEMATOLOGYOrdered By: Ciara Nugent on 26-44-6916Jrcujudzgvw distribution width (RBC) [Ratio]14.5 %High10.9 - 14.2 %[facility] HemeAutoSSHematocrit (Bld) [Volume fraction]40.5 %Dtnpcp84.0 - 46.0 %[facility] HemeAutoSSHemoglobin (Bld) [Mass/Vol]13.4 g/iZFinuad36.0 - 16.0 gm/dLFTMC HemeAutoSSMCH (RBC) [Entitic mass]26.7 pgLow27.0 - 34.0 pgFTMC HemeAutoSSMCHC (RBC) [Mass/Vol]33.2 g/dLNormal 31.4 - 36.0 gm/dLFTMC HemeAutoSSMCV (RBC) [Entitic vol]80.6 vLLpxxmc24.0 - 100.0 fLFTMC HemeAutoSSPlatelet mean volume (Bld) [Entitic vol]8.5 fLNormal6.4 - 10.8 fLFTMC HemeAutoSSPlatelets (Bld) [#/Vol]202.0 E9/KSdtdso530.0 - 500.0 E9/LFTMC HemeAutoSSRBC (Bld) [#/Vol]5.0 E12/LNormal4.3 - 5.9 E12/LFTMC HemeAutoSSWBC corrected for nucl RBC Auto (Bld) [#/Vol]7.3 E9/LNormal4.0 - 11.0 E9/LFTMC HemeAutoSSURINALYSISOrdered By: Christina Colindres on 49-69-6551Uxkaaekp LM Ql (Urine sed)Trace /HPFNormalTrace/HPFFTMC UA Auto SSBilirubin Ql (U)Negative (02/04/22 7:21 PM)NormalNegativeNOR[facility]TY [facility] UA Auto SSClarity (U)Clear (02/04/22 7:21 PM)NormalClearFCIMARRON [facility] UA Auto SSColor (U)Straw *ABN* (02/04/22 7:21 PM)Invalid Interpretation CodeYellowFT UA Auto SSEpithelial cells.squamous LM.HPF (Urine sed) [#/Area]0-2 /HPFNormal0-2/HPFFTMC UA Auto SS Glucose Test strip (U) [Mass/Vol]Negative (02/04/22 7:21 PM)NormalNegativeNOR[facility]TY [facility] UA Auto SSHemoglobin Ql (U)Negative (02/04/22 7:21 PM)NormalNegativeFT UA Auto SSKetones (U) [Mass/Vol]Negative (02/04/22 7:21 PM)NormalNegativeFT UA Auto SSLithium.plasma/[place].RBC (Bld) [Mass ratio]0-3 /HPFNormal0-3/HPFFTMC UA Auto SSNitrite Ql (U)Negative (02/04/22 7:21 PM)NormalNegativeFT UA Auto SSpH (U)7.0 *NA* (02/04/22 7:21 PM)Invalid Interpretation Code5.0 - 9.0[facility] UA Auto SSProtein (U) [Mass/Vol]Negative (02/04/22 7:21 PM)NormalNegativeNOR[facility]TY [facility] UA Auto SSSpecific gravity (U) [Rel density] 1.010 *NA* (02/04/22 7:21 PM)Invalid Interpretation Code1.005 - 1.030[facility] UA Auto SSUA Spec DescRandom Urine (02/04/22 7:21 PM)NormalNORMAN SPECIALTY [facility]ITAL [facility] UA Auto SSUrobilinogen Qn (U)0.3907199 {Sarahi'U}/dL Normal0.0 - 1.0 EU/dLNORMAN SPECIALTY HOS[facility]ITAL [facility] UA Auto SSWBC Auto Ql (U)Negative (02/04/22 7:21 PM)NormalNegativeNOR[facility] UA Auto SSWBC LM.HPF (Urine sed) [#/Area]0-5 /HPFNormal0-5/HPFNORMAN SPECIALTY [facility] UA Auto SSCBC AUTO DIFFon 30-61-6341SPRJ #0.0 103/ulNormal 0.0-0.1The Barnesville HospitalComment on above:Performed By: #### CBC #### [facility] [address] [place] [address] Dr. Dandy DobsonBasophils/100 WBC (Bld)0.2 %Normal0.2-2.0[facility] Comment on above:Performed By: #### CBC #### [facility] [address] [place] [address] Dr. Dandy Hernandez #0.0 103/ulNormal0.0-0.7The [facility]ville HospitalComment on above: Performed By: #### CBC #### [facility] [address] [place] [address] Dr. Dandy Dudleyosinophils/100 WBC (Bld)0.1 %Critically low0.9-7.0The [facility]ville HospitalComment on above:Performed By: #### CBC #### [facility] [address] [place] [address] Dr. Yilan ChangErythrocyte distribution width (RBC) [Ratio]13.9 %Ajvwva06.0-15.0 The [facility]ville HospitalComment on above:Performed By: #### CBC #### [facility] [address] [place] [address] Dr. Dandy DobsonHematocrit (Bld) [Volume fraction]42.7 %Oijnzg23.0-48.0The [facility] HospitalComment on above:Performed By: #### CBC #### [facility] [address] [place] [address] Dr. Dandy DobsonHemoglobin (Bld) [Mass/Vol]13.9 g/qKPrkerh12.0-16.0The [facility]ville HospitalComment on above:Performed By: #### CBC #### [facility] [address] [place] [address] Dr. Dandy Gutierrez #0.03 10e3/ulNormal0.00-0.03The [facility]ville HospitalComment on above:Performed By: #### CBC #### [facility] [address] [place] [address] Dr. Dandy Gutierrez %0.3 %Normal0.0-0.5The [facility]ville HospitalComment on above: Performed By: #### CBC #### [facility] [address] [place] [address] Dr. Dandy Craft #1.2 103/ulNormal1.2-3.8The [facility]ville HospitalComment on above:Performed By: #### CBC #### [facility] [address] [place] [address] Dr. Dandy Jiangmphocytes/100 WBC (Bld)13.5 %Critically low20.5-60.0The [facility]ville HospitalComment on above:Performed By: #### CBC #### [facility] [address] [place] [address] Dr. Dandy FaganUAL DIFF REQNONormalThe Barnesville HospitalComment on above: Performed By: #### CBC #### [facility] [address] [place] [address] Dr. Dandy García (RBC) [Entitic mass]27.4 xsEkppve49.7-34.0The [facility]ville HospitalComment on above:Performed By: #### CBC #### [facility] [address] [place] [address] Dr. Dandy Newsome (RBC) [Mass/Vol]32.6 g/qAFqzkuc43.9-35.2The [facility]ville HospitalComment on above:Performed By: #### CBC #### [facility] [address] [place] [address] Dr. Dandy Newsome (RBC) [Entitic vol]84.2 sKQihxos77.0-99.0The [facility]ville HospitalComment on above:Performed By: #### CBC #### [facility] [address] [place] [address] Dr. Dandy Hermosillo #0.4 103/ulNormal0.3-0.8The [facility]ville HospitalComment on above:Performed By: #### CBC #### [facility] [address] [place] [address] Dr. Dandy Baileyocytes/100 WBC (Bld)5.0 %Normal1.7-12.0[facility] Comment on above:Performed By: #### CBC #### [facility] [address] [place] [address] Dr. Dandy Waddell #7.1 103/ulCritically high1.4-6.5[facility] Comment on above:Performed By: #### CBC #### [facility] [address] [place] [address] Dr. Dandy Lingutrophils/100 WBC (Bld)80.9 %Critically high43.0-75.0The [facility]ville HospitalComment on above:Performed By: #### CBC #### [facility] [address] [place] [address] Dr. Dandy Figueroa mean volume (Bld) [Entitic vol]10.4 fLNormal9.5-13.5The [facility]ville HospitalComment on above:Performed By: #### CBC #### [facility] [address] [address] [address] Dandy DobsonPLT256 103/jxSsldgr153-874Ngk [facility]ville HospitalComment on above: Performed By: #### CBC #### [facility] [address] [address] [address] Dandy DobsonRBC5.07 106/ulNormal4.20-5.40The [facility]ville HospitalComment on above:Performed By: #### CBC #### [facility] [address] [place] [address] Dr. Dandy DobsonWBC8.8 103/ulNormal4.0-11.0The [facility]ville HospitalComment on above: Performed By: #### CBC #### [facility] [address] [place] [address] Dr. Dandy DobsonPROF CHEM 8 (BAS METB)on 13-13-0234Vfavl gap [Moles/Vol]11.2 mmol/LNormalThe [facility]ville HospitalComment on above:Performed By: #### ADAMA ZAMBRANOICRO #### [facility] [address] [place] [address] Dr. Dandy DobsonCalcium [Mass/Vol]8.2 mg/dLCritically low8.5-10.1The [facility]ville HospitalComment on above:Performed By: #### JUAN MANUEL UMICRO #### [facility] [address] [place] [address] Dr. Dandy DobsonChloride [Moles/Vol]100 mmol/HVnzbok62-510Lol [facility] Comment on above:Performed By: #### JUAN MANUEL UMICRO #### [facility] [address] [place] [address] Dr. Dandy DobsonCO2 [Moles/Vol]25.5 mmol/SBmwoyz77.0-32.0[facility] Comment on above:Performed By: #### JUAN MANUEL UMICRO #### [facility] [address] [place] [address] Dr. Dandy DobsonCreatinine [Mass/Vol]0.72 mg/dLNormal0.55-1.02The [facility] HospitalComment on above:Performed By: #### HELEN ZAMBRANORO #### [facility] [address] [place] [address] Dr. Dandy DudleyGFR-AF ISRAELI>60Normal>=60The [facility] HospitalComment on above:Performed By: #### JUAN MANUEL UMICRO #### [facility] [address] [place] [address] Dr. Dandy DudleyGFR-NON AF ISRAELI>60Normal>=60The [facility] HospitalComment on above:Performed By: #### HELEN ZAMBRANORO #### [facility] [address] [place] [address] Dr. Dandy DobsonGlucose [Mass/Vol]201 mg/dLCritically djfi27-833Ibt [facility] HospitalComment on above:Performed By: #### HELEN ZAMBRANORO #### [facility] [address] [place] [address] Dr. Dandy DobsonPotassium [Moles/Vol]3.7 mmol/LNormal3.5-5.1[facility] Comment on above:Performed By: #### VERONICA ZAMBRANO #### [facility] [address] [place] [address] Dr. Dandy DobsonSodium [Moles/Vol]133 mmol/LCritically aht701-963Rom [facility] HospitalComment on above:Performed By: #### HELEN ZAMBRANORO #### [facility] [address] [place] [address] Dr. Dandy DobsonUrea nitrogen [Mass/Vol]9.0 mg/dLNormal7.0-18.0The [facility] HospitalComment on above:Performed By: #### HELEN ZAMBRANORO #### [facility] [address] [place] [address] Dr. Dandy Wang nitrogen/Creatinine [Mass ratio]12.5 mg/mgNormalThe [facility]ville HospitalComment on above:Performed By: #### HELEN ZAMBRANORO #### [facility] [address] [address] [address] Dandy Camp [id number] (NCCAP) APRYL DOWNS ([id number]) 1980 F Date Time Provider Department 01/22/21 [...] to my schedule. Job Weber APRN.TRESA Barrera [facility] 01/22/2021 10:39 AM Signed Called and spoke with patient. Patient has been scheduled to see Job 01/28 @ 11:00. Patient is aware she will be seeing Job for this appointment. Carla Barrera [facility] Allergies As of Date: 01/22/2021 Noted Allergy Reaction OXYCODONE-ACETAMINOPHEN 09/09/2020 2 - Rash Comments: Has tolerated norco in the past Date Reviewed: 01/22/2021 Reviewed by: Job Weber APRN.[employer] OPERATOR - Fully Assessed Reason for Visit: Future [...] 10/02/2020 Heart murmur [R01.1] 10/02/2020 Patient is Baptism [Z78.9] 10/02/2020 Encounter Status:Closed by CARLA SANTIAGO on 01/22/21NoOhioHealth Doctors HospitalPNon [id number] ([facility]) APRYL DOWNS ([id number]) 1980 F Date Time Provider Department 10/28/20 AYAH MUÑOZ [facility] During your visit today, we recorded the following information about you: Kya Yoselin 10/28/2020 9:19 AM Signed Patient had surgery on 10/03. States she has not stopped bleeding since 10/18. Says it is a moderate bleed. Marjorie Nobles RN 10/28/2020 9:53 AM Signed I called the patient and there was no answer. is full and cannot leave a message. Marjorie Jacobo 10/28/2020 2:40 PM Signed Patient is returning call. Marjorie Nobles RN 10/28/2020 3:20 PM Signed I called the patient and there was no answer. VM is full and cannot leave a message. Marjorie Nobles RN Marjorie Nobles RN 10/28/2020 3:33 PM Signed [...] she verbalizes understanding. She will go to [facility] lab for CBC. She will call the office with any change in symptoms or any further questions or concerns. Marjorie Nobles RN Allergies As of Date: 10/28/2020 Noted Allergy Reaction OXYCODONE-ACETAMINOPHEN 09/09/2020 2 - Rash Comments: Has tolerated norco in the past Date Reviewed: 10/03/2020 Reviewed by: Bharti Lorenz (Rn) DAWNA Zavala - Fully Assessed Reason for Visit: Surgical Followup [104] Vaginal Bleeding [203] Primary Visit Diagnosis:Excessive bleeding in premenopausal period [N92.4] Order(s):CBC [CB] Order #: [id number] FUTURE Prescriptions as of 10/28/2020 Sig: METFORMIN [...] Heart murmur [R01.1] 10/02/2020 More... Patient is Baptism [Z78.9] 10/02/2020 More... Encounter Status:Closed by MARJORIE NOBLES RN on 10/29/20[facility] [id number] ([id number]) APRYL DOWNS ([id number]) 1980 F Date Time Provider Department 10/06/20 AYAH MUÑOZ [id number] During your visit today, we recorded the following information about you: Yoli March Pss 10/06/2020 9:46 AM Signed Apryl Downs called today. : 1980 Allergies: Oxycodone-Acetaminophen (home) [phone] (cell) Reason for call: Patient calling with [...] and today. Please advise if appropriate. Lana Blackmon RN Ayah Muñoz MD 10/06/2020 11:54 AM Signed Work excuse is ok. D/C and odor is normal for 4-6 weeks after ablation. No need for ABx. Thank you. Lana Blackmon RN 10/06/2020 12:59 PM Signed Called pt. Advised of provider message. Work release sent via [employer]. Pt verbalized understanding. Lana Blackmon RN Allergies As of Date: 10/06/2020 Noted Allergy Reaction OXYCODONE-ACETAMINOPHEN 09/09/2020 2 - [...] Heart murmur [R01.1] 10/02/2020 More... Patient is Baptism [Z78.9] 10/02/2020 More... Letter Text Encounter Status:Closed by LANA BLACKMON RN on 10/06/20[facility] POSTPROC EVALon [id number] POSTPROC EVALHNO ID: [id number] Author: Naz Caballero Service: Anesthesiology Author Type: [...] October 03, 2020 TIME: 8:32 AM CSN: [id number] [facility] Hospital PRE-OPon [id number] PRE-OPHNO ID: [id number] Author: Naz Caballero Service: Anesthesiology Author Type: [...] for the desired time range. No current facility-administered medications on file as of 10/03/2020. Outpatient [...] October 03, 2020 TIME: 7:02 AM CSN: [id number] [facility] 10-[facility]-2020 OPERATIVE NOHNO ID: [id number] Author: Ayah Muñoz Service: Gynecology Author Type: Physician Type: Operative Report Filed: 10/03/2020 4:23 PM Note Text: [facility] - Operative Report APRYL DOWNS : 1980 AGE: 40. SEX: F PATIENT TYPE: [place] [facility] [facility] LOCATION: [facility] ATTENDING PHYSICIAN: Ayah Muñoz M.D. CSN NUMBER: [id number] DATE OF SURGERY/PROCEDURE: 10/03/2020 INCISION/PROCEDURE START TIME: 7:57 AM INCISION CLOSE/PROCEDURE END TIME: 8:07 AM PREOPERATIVE DIAGNOSIS: Menorrhagia. POSTOPERATIVE DIAGNOSIS: Menorrhagia. SURGEON: Ayah Muñoz M.D. SHALLOT CLEANER: None. SURGERY/PROCEDURE: Hysteroscopy, Ann endometrial ablation, D [...] BLOOD LOSS: 5 mL. Ayah Muñoz M.D. FSB:[id number] /[id number] NormalAvoDr. Dan C. Trigg Memorial HospitalURGICAL PATHOLOGYon [id number] PATHOLOGYSpecimen originated from [facility] Specimen #: [id number] Submitting Physician: AYAH MUÑOZ MD FINAL DIAGNOSIS [...] in five cassettes. Gross examination performed at [facility], [address] [place] [address] 10/03/2020 12:53:09 PM Date of Report: 10/06/2020 Date of Procedure: 10/03/2020 Date of Receipt: 10/03/2020 Submitted by: AYAH MUÑOZ MD Location: AV Diagnostic interpretation performed at [place] [address]. IA Number: [id number] [facility] Comment on above:Performed By: #### S #### See report for performing lab information.HOSPon [id number] Patient:Apryl Downs MRN: Height:5' 3 (1.6 m) Weight:201 [...] murmur [R01.1] Heart murmur [R01.1] Patient is Baptism [Z78.9] Allergies: Oxycodone-Acetaminophen Date Verified: 10/03/20 Lab Values Lab Value Units Date High Low POTA* 4.1 mmol/L 09/19/2020 5.1 3.7 BRISEIDA* 29.5 % 09/24/2020 46.0 36.0 Progress Notes (STOREKEEPER STEWARD JUANITA 650): Marjorie Nobles RN 09/25/2020 2:34 [...] [facility] for menorrhagia AND anemia through [facility] today. Pt notified of the all surgery information above. Pt aware that she will require pre op testing prior to surgery and PAT number given to pt to call and schedule. Pt aware PAT needs completed to proceed with surgery. Pt is aware she will need to be at [facility] as instructed by [facility] and no solid food after midnight. The [facility] facility will contact the pt the day [...] for surgical case scheduled for 10/03/20 at [facility], please approve if appropriate. Spoke with pt. Pt aware if she can provider hard copy of positive test then she will not need test but if not she needs to be tested per [facility] surgery scheduling. COVID scheduled for 10/01/20 at [...] deficiency anemia, seen for scheduled follow-up. (Former [facility] patient) INTERIM HISTORY: Apryl Downs returns for [...] on 10/09/2020 for a pelvic ultrasound the teacher lip reading's office will be calling her to set [...] TONGUE every 4 hours if needed ALLERGIES: Oxycodone-Acetaminophen PAST MEDICAL HISTORY: No past medical history [...] Skin: Negative for lesions, rash and itching. Hematology/Lymphology: Negative for prolonged bleeding, bruising easily or [...] medications. Continue management per PCP. Job Weber APRN.[facility] METABOLIC PANELon 04-02-2019 Calcium [Mass/Vol]8.4 mg/dLLow8.6-10.3The [facility] Comment on above:Order Comment: No: Do not add to previous drawPerformed By: #### [id number] #### [facility] [address] [place] [address], USAChloride [Moles/Vol]108 mmol/NIfju46-888Noj [facility] HospitalComment on above:Order Comment: No: Do not add to previous drawPerformed By: #### [id number] #### [facility] [address] [place] [address], USACO2 [Moles/Vol]25 mmol/NSjsqns04-87Yef [facility] HospitalComment on above:Order Comment: No: Do not add to previous draw Performed By: #### [id number] #### [facility] [address] [place] [address], USACreatinine [Mass/Vol]0.45 mg/dLLow0.60-1.20The [facility] HospitalComment on above:Order Comment: No: Do not add to previous drawPerformed By: #### [id number] #### [facility] [address] [place] [address], USAGFR/1.73 sq M predicted among blacks MDRD (S/P/Bld) [Vol rate/Area]mL/min/{1.73_m2}Normal>60The [facility] Comment on above:Order Comment: No: Do not add to previous drawPerformed By: #### [id number] #### [facility] [address] [place] [address], USAGFR/1.73 sq M predicted among non-blacks MDRD (S/P/Bld) [Vol rate/Area]mL/min/{1.73_m2}Normal>60The [facility] Comment on above:Order Comment: No: Do not add to previous drawPerformed By: #### [id number] #### [facility] [address] [place] [address], USAGlucose [Mass/Vol]123 mg/pXFgfy10-695Rbj [facility] HospitalComment on above:Order Comment: No: Do not add to previous drawPerformed By: #### [id number] #### [facility] [address] [place] [address], USAPotassium [Moles/Vol]3.7 mmol/LNormal3.5-5.1The [facility] HospitalComment on above:Order Comment: No: Do not add to previous drawPerformed By: #### [id number] #### [facility] [address] [place] [address], USASodium [Moles/Vol]137 mmol/RFvvfej146-773Tud [facility] HospitalComment on above:Order Comment: No: Do not add to previous drawPerformed By: #### 81567 #### [facility] [address] [place] [address], USAUrea nitrogen [Mass/Vol]14 mg/dLNormal7-25The [facility] HospitalComment on above:Order Comment: No: Do not add to previous drawPerformed By: #### 08143 #### [facility] [address] [place] [address], USACBC COMPLETE BLOOD COUNTon 31-47-4307Wotorexxqnd distribution width (RBC) [Ratio]13.4 %Pwsczv67.5-15.0The [facility] HospitalComment on above:Order Comment: No: Do not add to previous draw Performed By: #### 59946 #### [facility] [address] [place] [address], USAHematocrit (Bld) [Volume fraction]36.6 %Fznpys91.0-45.0The [facility] HospitalComment on above:Order Comment: No: Do not add to previous drawPerformed By: #### 52317 #### [facility] [address] [place] [address], [facility] CENTERHemoglobin (Bld) [Mass/Vol]11.7 g/dLLow12.0-15.0The [facility] HospitalComment on above:Order Comment: No: Do not add to previous drawPerformed By: #### 25510 #### [facility] [address] [place] [address], [facility] (RBC) [Entitic mass]29.2 ktNsbcdo73.0-33.0The [facility] HospitalComment on above:Order Comment: No: Do not add to previous drawPerformed By: #### 51406 #### [facility] [address] [place] [address], [facility]ENTERMCHC (RBC) [Mass/Vol]32.0 g/jQVldqqy36.0-35.0The [facility] HospitalComment on above:Order Comment: No: Do not add to previous drawPerformed By: #### 37656 #### [facility] [address] [place] [address], [facility] (RBC) [Entitic vol]91.3 eVQhvkdj48.0-98.0The [facility] HospitalComment on above:Order Comment: No: Do not add to previous drawPerformed By: #### 01548 #### [facility] [address] [place] [address], USANucleated RBC/100 WBC (Bld) [Ratio]0 %Normal0-0The [facility] HospitalComment on above:Order Comment: No: Do not add to previous drawPerformed By: #### 82652 #### [facility] [address] [place] [address], USAPLAT JZR845 10*3/xQIenmjf485-959Vwy [facility] HospitalComment on above:Order Comment: No: Do not add to previous draw Performed By: #### [id number] #### [facility] [address] [place] [address], USARBC (Bld) [#/Vol]4.01 10*6/uLNormal3.80-5.00The [facility] HospitalComment on above:Order Comment: No: Do not add to previous drawPerformed By: #### 64967 #### [facility] [address] [place] [address], USAWBC (Bld) [#/Vol]5.58 10*3/uLNormal4.00-10.60The [facility] HospitalComment on above:Order Comment: No: Do not add to previous drawPerformed By: #### 99419 #### [facility] [address] [place] [address], USAPOC GLUCOSE LABon 02-21-9493Satbcqe [Mass/Vol]135 mg/dLHigh 70-100The [facility] HospitalComment on above:Performed By: #### [id number] #### [facility] [address] [place] [address], USAGlucose [Mass/Vol]124 mg/pCYequ42-066Pdo [facility] HospitalComment on above:Performed By: #### 74681 #### [facility] [address] [place] [address], USAURINALYSIS REFLEXon 61-67-0266WQAVRWPECSKPFivpsejtVQTL SEEN The [facility] HospitalComment on above:Order Comment: No: Do not add to previous drawPerformed By: #### 08872 #### [facility] [address] [place] [address], USAAppearance (U)SL CLOUDYAbnormalCLEARThe [facility] HospitalComment on above:Order Comment: No: Do not add to previous drawPerformed By: #### 99021 #### [facility] [address] [place] [address], USABilirubin [Mass/Vol]NegativeNormalNEGATIVEThe [facility] HospitalComment on above:Order Comment: No: Do not add to previous drawPerformed By: #### 07457 #### [facility] [address] [place] [address], USABLOODLARGEAbnormalNEGATIVEThe [facility] HospitalComment on above:Order Comment: No: Do not add to previous drawPerformed By: #### 13662 #### [facility] [address] [place] [address], USAColor (U)YELLOWNormalYELLOWThe [facility] HospitalComment on above:Order Comment: No: Do not add to previous drawPerformed By: #### 41597 #### [facility] [address] [place] [address], USAEPISMANYAbnormalFEW,OCC,NONE SEENThe [facility] HospitalComment on above:Order Comment: No: Do not add to previous draw Performed By: #### 65300 #### [facility] [address] [place] [address], USAGlucose [Mass/Vol]NegativeNormalNEGATIVEThe [facility] HospitalComment on above:Order Comment: No: Do not add to previous drawPerformed By: #### 98480 #### [facility] [address] [place] [address], USAKETONENegativeNormalNEGATIVEThe [facility] HospitalComment on above:Order Comment: No: Do not add to previous draw Performed By: #### 56327 #### [facility] [address] [place] [address], USALEUK ESTERNegativeNormalNEGATIVEThe [facility] HospitalComment on above:Order Comment: No: Do not add to previous draw Performed By: #### 55014 #### [facility] [address] [place] [address], USAMUCUS THREADSFEWAbnormalNONE SEENThe [facility] HospitalComment on above:Order Comment: No: Do not add to previous draw Performed By: #### 08410 #### [facility] [address] [place] [address], USANitrite Ql (U)NegativeNormalNEGATIVEThe [facility] HospitalComment on above:Order Comment: No: Do not add to previous drawPerformed By: #### 46176 #### [facility] [address] [place] [address], USApH (Bld)7.7Rhsuid7.0-8.0The [facility] HospitalComment on above:Order Comment: No: Do not add to previous drawPerformed By: #### 22328 #### [facility] [address] [place] [address], USAProtein (U) [Mass/Vol]NegativeNormalNEGATIVEThe [facility] HospitalComment on above:Order Comment: No: Do not add to previous drawPerformed By: #### 37171 #### [facility] [address] [place] [address], USARBC (U) [#/Vol]0-2AbnormalNONE SEENThe [facility] HospitalComment on above:Order Comment: No: Do not add to previous draw Performed By: #### 34994 #### [facility] [address] [place] [address], USASPEC GRAV1.168Dursdd6.015-1.020The [facility] HospitalComment on above:Order Comment: No: Do not add to previous draw Performed By: #### 57212 #### [facility] [address] [place] [address], USAUA COMMENT 2UROBILINOGEN (E.U./DL) 4.0NormalThe [facility] HospitalComment on above:Order Comment: No: Do not add to previous drawPerformed By: #### 61498 #### [facility] [address] [place] [address], USAWBC UA0-2AbnormalNONE SEENThe [facility] HospitalComment on above:Order Comment: No: Do not add to previous drawPerformed By: #### 20102 #### [facility] [address] [place] [address], USABASIC METABOLIC PANELon 44-68-0656Kqcugke [Mass/Vol]8.6 mg/dLNormal8.6-10.3The [facility] HospitalComment on above:Order Comment: No: Do not add to previous drawPerformed By: #### 99168, 42407, 82656 #### [facility] [address] [place] [address], USAChloride [Moles/Vol]107 mmol/OKkojgf02-095Ucz [facility] HospitalComment on above:Order Comment: No: Do not add to previous drawPerformed By: #### 82737, 46175, 45972 #### [facility] [address] [place] [address], USACO2 [Moles/Vol]24 mmol/BCzndzm38-13Glj [facility] HospitalComment on above:Order Comment: No: Do not add to previous draw Performed By: #### 04149, 33064, 65587 #### [facility] [address] [place] [address], USACreatinine [Mass/Vol]0.50 mg/dLLow0.60-1.20The [facility] HospitalComment on above:Order Comment: No: Do not add to previous drawPerformed By: #### 48077, 01832, 44102 #### [facility] [address] [place] [address], USAGFR/1.73 sq M predicted among blacks MDRD (S/P/Bld) [Vol rate/Area]mL/min/{1.73_m2}Normal>60The [facility] Comment on above:Order Comment: No: Do not add to previous drawPerformed By: #### 07844, 22833, 28745 #### [facility] [address] [place] [address], USAGFR/1.73 sq M predicted among non-blacks MDRD (S/P/Bld) [Vol rate/Area]mL/min/{1.73_m2}Normal>60The [facility] Comment on above:Order Comment: No: Do not add to previous drawPerformed By: #### 95650, 79990, 12440 #### [facility] [address] [place] [address], USAGlucose [Mass/Vol]106 mg/lDPmnr39-567Wbi [facility] HospitalComment on above:Order Comment: No: Do not add to previous drawPerformed By: #### 43213, 61203, 39729 #### [facility] [address] [place] [address], USAPotassium [Moles/Vol]3.3 mmol/LLow3.5-5.1The [facility] HospitalComment on above:Order Comment: No: Do not add to previous drawPerformed By: #### 52484, 24779, 25911 #### [facility] [address] [place] [address], USASodium [Moles/Vol]139 mmol/NNaljzp627-705Lyr [facility] HospitalComment on above:Order Comment: No: Do not add to previous drawPerformed By: #### 23188, 17452, 56529 #### [facility] [address] [place] [address], USAUrea nitrogen [Mass/Vol]11 mg/dLNormal7-25The [facility] HospitalComment on above:Order Comment: No: Do not add to previous drawPerformed By: #### 87218, 53256, 52636 #### [facility] [address] [place] [address], USACBC COMPLETE BLOOD COUNTon 85-81-6356Jbigdrleymy distribution width (RBC) [Ratio]13.5 %Vgmmok41.5-15.0The [facility] HospitalComment on above:Order Comment: No: Do not add to previous draw Performed By: #### 31533, 72997 #### [facility] [address] [place] [address], USAHematocrit (Bld) [Volume fraction]36.7 %Fjndvz02.0-45.0The [facility] HospitalComment on above:Order Comment: No: Do not add to previous drawPerformed By: #### 59698, 66968 #### [facility] [address] [place] [address], USAHemoglobin (Bld) [Mass/Vol]11.9 g/dLLow12.0-15.0The [facility] HospitalComment on above:Order Comment: No: Do not add to previous drawPerformed By: #### 15453, 84028 #### [facility] [address] [place] [address], [facility]ENTERMCH (RBC) [Entitic mass]29.0 cdQfvmkq23.0-33.0The [facility] HospitalComment on above:Order Comment: No: Do not add to previous drawPerformed By: #### 06050, 31859 #### [facility] [address] [place] [address], [facility] CENTERMCHC (RBC) [Mass/Vol]32.4 g/xDKxdipj66.0-35.0The [facility] HospitalComment on above:Order Comment: No: Do not add to previous drawPerformed By: #### 19878, 56902 #### [facility] [address] [place] [address], USAMCV (RBC) [Entitic vol]89.5 hXHhrrmu34.0-98.0The [facility] HospitalComment on above:Order Comment: No: Do not add to previous drawPerformed By: #### 47721, 55222 #### [facility] [address] [place] [address], USANucleated RBC/100 WBC (Bld) [Ratio]0 %Normal0-0The [facility] HospitalComment on above:Order Comment: No: Do not add to previous drawPerformed By: #### 99244, 12195 #### [facility] [address] [place] [address], USAPLAT MMP718 10*3/uVWglpde186-421Ekr [facility] HospitalComment on above:Order Comment: No: Do not add to previous draw Performed By: #### 41090, 90239 #### [facility] [address] [place] [address], USARBC (Bld) [#/Vol]4.10 10*6/uLNormal3.80-5.00The [facility] HospitalComment on above:Order Comment: No: Do not add to previous drawPerformed By: #### 27162, 77147 #### [facility] [address] [place] [address], USAWBC (Bld) [#/Vol]7.18 10*3/uLNormal4.00-10.60The [facility] HospitalComment on above:Order Comment: No: Do not add to previous drawPerformed By: #### 76155, 87993 #### [facility] [address] [place] [address], USACRP HIGH SENSITIVITYon 32-28-4335ODYL SENSITIVITY CRP4.39 mg/LNormalThe [facility] HospitalComment on above:Order Comment: No: Do not add to previous drawResult Comment: HIGH SENSITIVITY CRP (hs_CRP) REFERENCE RANGES Less than 1.0 mg/L: lowest tertile, lowest risk 1.0-3.0 mg/L: middle tertile, average risk Greater than 3.0 mg/L: highest tertile, highest riskPerformed By: #### 91625 #### [address] [address], USACT BRAIN WO CONTRASTon [id number] BRAIN WO CONTRAST [facility] Department of Radiology [address] [place] [id number] Patient Name: APRYL DOWNS : 1980 Sex: F Age: Race: Other Pt. Location: [place] [address] Patient Status: I Ordered Date: 04/01/2019 3:00:00 PM Completed Date: 04/01/2019 03:31 PM Requesting Provider: TSEF NAZARIO Attending Provider: STEF NAZARIO Report Copy To: Signs & Symptoms: Stroke(CVA) History: See Comments Comments: R/O CVA Exam: CT BRAIN WO CONTRAST CT BRAIN WO CONTRAST 04/01/2019 3:31 PM EDT SIGNS AND SYMPTOMS: Stroke(CVA) TECHNOLOGIST COMMENTS: 24 hour post TPA QUESTION FOR THE RADIOLOGIST: R/O CVA PROTOCOL: Axial CT images of the head were obtained without IV contrast. TECHNIQUE:Multi-detector CT axial slices of the brain were [...] findings. Electronically signed by:Alice Coello. Transcribed by: [email or web address], User Resident: RYAN GONZALEZ Electronically Signed by: ALICE COELLO @ 04/02/2019 08:59 AM I personally read this/these film(s) with this residentNoMain Campus Medical CenterComment on above:Order Comment: No: Do not add to previous drawMAGNESIUM BLOODon 70-02-9410Gqkfehszf [Mass/Vol]2.2 mg/dLNormal1.9-2.7The [facility] HospitalComment on above:Order Comment: No: Do not add to previous drawPerformed By: #### 89154, 13716, 01651 #### [facility] [address] [place] [address], USAPHOSPHORUS BLOODon 96-61-2671Whyupvunj [Mass/Vol]3.9 mg/dL Normal2.5-5.0The [facility] HospitalComment on above:Order Comment: No: Do not add to previous drawPerformed By: #### 89522, 73312, 45092 #### [facility] [address] [place] [address], USAPOC GLUCOSE LABon 51-22-0080Xylsjum [Mass/Vol]120 mg/dLHigh 70-100The [facility] HospitalComment on above:Performed By: #### 50116 #### [facility] [address] [place] [address], USASEDIMENTATION RATEon 38-10-1652SZE RATE23 mm/hrHigh0-20The [facility] HospitalComment on above:Order Comment: No: Do not add to previous drawPerformed By: #### 64753, 04298 #### [facility] [address] [place] [place] [address], USACT BRAIN PERFUSIONon 87-76-2547MO BRAIN PERFUSIONUnMercy Health St. [facility] Department of Radiology [address] [facility] [place] [id number] Patient Name: APRYL DOWNS : 1980 Sex: [...] weakness TECHNOLOGIST COMMENTS: stroke alert from draper jim weakness all over aphasic QUESTION FOR RADIOLOGIS: [...] FINDINGS: Please see report for dictation number [id number] CTA neck CTA brain and perfusion were all dictated together Electronically signed by:Etta Cartwright. Transcribed by: [email or web address], User Resident: Electronically Signed by: ETTA CARTWRIGHT @ 04/09/2019 10:35 AMNormalThe [facility] HospitalComment on above:Order Comment: No: Do not add to previous drawCTA NECKon [id number] NECKUnMercy Health St. [facility] Department of Radiology [address] [place] [phone] Patient Name: APRYL DOWNS : 1980 [...] abnormality Electronically signed by:Etta Cartwright. Transcribed by: [email or web address], User Resident: Electronically Signed by: ETTA CARTWRIGHT @ 03/31/2019 04:31 PMNormalRegency Hospital ToledoComment on above:Order Comment: Stroke transfer, lt side weaknessMRI BRAIN W WO CONTRASTon [id number] BRAIN W WO CONTRASTUnMercy Health St. [facility] Department of Radiology [address] [place] [phone] Patient Name: APRYL DOWNS : 1980 Sex: F Age: Race: Other Pt. Location: [place] [address] Patient Status: I Ordered Date: 03/31/2019 4:10:00 [...] findings. Electronically signed by:Etta Cartwright. Transcribed by: [email or web address], User Resident: VICKIE VUONG Electronically Signed by: ETTA CARTWRIGHT @ 04/01/2019 09:56 AM I personally read this/these film(s) with this residentSt. Mary's Medical Center, Ironton CampusComment on above:Order Comment: R/O CVAMRI CERVICAL SPINE W WO CONTRASTon [id number] CERVICAL SPINE W WO CONTRASTUnMercy Health St. [facility] Department of Radiology [address] [place] [phone] Patient Name: APRYL DOWNS : 1980 Sex: F Age: Race: Other Pt. Location: [place] [address] Patient Status: I Ordered Date: 03/31/2019 4:05:00 [...] findings. Electronically signed by:Etta Cartwright. Transcribed by: [email or web address], User Resident: VICKIE VUONG Electronically Signed by: ETTA CARTWRIGHT @ 04/01/2019 09:53 AM I personally read this/these film(s) with this residentSt. Mary's Medical Center, Ironton CampusComment on above:Order Comment: R/O Cord CompressionPOC GLUCOSE LABon 60-13-4069Knhxmbb [Mass/Vol]118 mg/jDFnsa92-714Hyz [facility] HospitalComment on above:Performed By: #### 40187 #### [facility] [address] [place] [address], USATOX PANEL URINEon 69-41-655805 THCNegativeNormalNEGATIVEThe [facility] HospitalComment on above:Order Comment: No: Do not add to previous drawPerformed By: #### 71825 #### [facility] [address] [place] [address], USABARBITURATESNegativeNormalNEGATIVEThe [facility] HospitalComment on above:Order Comment: No: Do not add to previous draw Performed By: #### 28704 #### [facility] [address] [place] [address], USABenzodiazepines Ql (U)NegativeNormalNEGATIVEThe [facility] HospitalComment on above:Order Comment: No: Do not add to previous drawPerformed By: #### 36119 #### [facility] [address] [place] [address], USACocaine Ql (U)NegativeNormalNEGATIVEThe [facility] HospitalComment on above:Order Comment: No: Do not add to previous drawPerformed By: #### 61485 #### [facility] [address] [place] [address], USAMethadone Ql (U)NegativeNormalNEGATIVEThe [facility] HospitalComment on above:Order Comment: No: Do not add to previous drawPerformed By: #### 72551 #### [facility] [address] [place] [address], USAMONO AMPHETNegativeNormalNEGATIVEThe [facility] HospitalComment on above:Order Comment: No: Do not add to previous draw Performed By: #### 06051 #### [facility] [address] [place] [address], USAOpiates Ql (U)NegativeNormalNEGATIVEThe [facility] HospitalComment on above:Order Comment: No: Do not add to previous drawPerformed By: #### 29916 #### [facility] [address] [place] [address], USAPhencyclidine Ql (U)NegativeNormalNEGATIVEThe [facility] HospitalComment on above:Order Comment: No: Do not add to previous drawPerformed By: #### 92339 #### [facility] [address] [place] [address], USAPROPOXYPHENENegativeNormalNEGATIVEThe [facility] HospitalComment on above:Order Comment: No: Do not add to previous draw Performed By: #### 31250 #### [facility] [address] [place] [address], USATRICYCLICSNegativeNormalNEGATIVEThe [facility] HospitalComment on above:Order Comment: No: Do not add to previous draw Performed By: #### 10316 #### [facility] [address] Vital Signs Date TimeVital SignValuePerforming IxdccdjeoDxshdkbz36-00-2396 10:45-0400Body ewwapc496.6 cmMarc Dolce DPM FACFAS Work Phone: [phone] [place], [place] 1137410-06-2025 10:45-0400Body mass index (BMI) [Ratio]32.79 kg/m2Marc Dolce DPM FACFAS Work Phone: [phone] [place], [place] 1137410-06-2025 10:45-0400Body oevewy92.64 kgMarc Dolce DPM FACFAS Work Phone: [phone] [place] [address]-06-2025 10:45-0400Diastolic blood jhizktew09 mm[Hg]Earnest Dolce DPM FACFAS Work Phone: [phone] [place], [place] 1137410-06-2025 10:45-0400Heart rate75 /min Earnest Dolce DPM FACFAS Work Phone: [phone] [place], [place] 1137410-06-2025 10:45-0400Systolic blood saxzxjrp478 mm[Hg]Earnest Dolce DPM FACFAS Work Phone: [phone] [place], [place] 1137406-24-2025 12:12-0400Body lklutt662.6 cmMarc Dolce DPM FACFAS Work Phone: [phone] [place], [place] 1137406-24-2025 12:12-0400Body mass index (BMI) [Ratio]32.79 kg/m2Marc Dolce DPM FACFAS Work Phone: [phone] [place], [place] 1137406-24-2025 12:12-0400Body .64 kgMarc Dolce DPM FACFAS Work Phone: [phone] [place], [place] 1137406-24-2025 12:12-0400Diastolic blood exgpmkax83 mm[Hg]Earnest Dolce DPM FACFAS Work Phone: [phone] [place], [place] 1137406-24-2025 12:12-0400Heart rate72 /min Earnest Dolce DPM FACFAS Work Phone: [phone] [place], [place] [address]25 12:12-0400Systolic blood xdjgrlof093 mm[Hg]Earnest Peoplesce DPM FACFAS Work Phone: [phone] [place], [place] 1137405-28-2025 16:00-0400Body .6 cmMarc Dolce DPM FACFAS Work Phone: [phone] [place], [place] 1137405-28-2025 16:00-0400Body mass index (BMI) [Ratio]32.61 kg/m2Marc Dolce DPM FACFAS Work Phone: [phone] [place], [place] 1137405-28-2025 16:00-0400Body nfycng41.18 kgMarc Dolce DPM FACFAS Work Phone: [phone] [place], [place] 1137405-28-2025 16:00-0400Diastolic blood mxdggxim66 mm[Hg]Earnest Dolce DPM FACFAS Work Phone: [phone] [place], [place] 1137405-28-2025 16:00-0400Heart rate71 /min Earnest Dolce DPM FACFAS Work Phone: [phone] [place], [place] 1137405-28-2025 16:00-0400Systolic blood uandqilk953 mm[Hg]Earnest Dolce DPM FACFAS Work Phone: [phone] [place], [place] 1137405-20-2025 11:15-0400Body .6 cmMarc Dolce DPM FACFAS Work Phone: [phone] [place], [place] 1137405-20-2025 11:15-0400Body mass index (BMI) [Ratio]32.61 kg/m2Marc Dolce DPM FACFAS Work Phone: 1([phone] [place], [place] 1137405-20-2025 11:15-0400Body dbzeoc97.18 kgMarc Dolce DPM FACFAS Work Phone: [phone] [place], [place] 1137405-20-2025 11:15-0400Diastolic blood balpepxq64 mm[Hg]Earnest Peoplesce DPM FACFAS Work Phone: 1([phone] [place], [place] 1137405-20-2025 11:15-0400Heart rate70 /min Earnest Dolce DPM FACFAS Work Phone: [phone] [place], [place] 1137405-20-2025 11:15-0400Systolic blood ajlnxdku920 mm[Hg]Earnest Peoplesce DPM FACFAS Work Phone: [phone] [place], [place] 1137405-07-2025 12:07-0400Body dmmyxb576.6 cmMarc Dolce DPM FACFAS Work Phone: [phone] [place], [place] 1137405-07-2025 12:07-0400Body mass index (BMI) [Ratio]32.61 kg/m2Marc Dolce DPM FACFAS Work Phone: [phone] [place], [place] 1137405-07-2025 12:07-0400Body upwcvs81.18 kgMarc Dolce DPM FACFAS Work Phone: [phone] [place], [place] 1137405-07-2025 12:07-0400Diastolic blood amslchce08 mm[Hg]Earnest Dolce DPM FACFAS Work Phone: [phone] [place], [place] 1137405-07-2025 12:07-0400Heart rate72 /min Earnest Dolce DPM FACFAS Work Phone: [phone] [place], [place] 1137405-07-2025 12:07-0400Systolic blood ulcdhyfh053 mm[Hg]Earnest Dolce DPM FACFAS Work Phone: [phone] [place], [place] 1137404-08-2025 10:43-0400Body whudom256.6 cmMarc Dolce DPM FACFAS Work Phone: [phone] [place], [place] 1137404-08-2025 10:43-0400Body mass index (BMI) [Ratio]32.61 kg/m2Marc Dolce DPM FACFAS Work Phone: [phone] [place], [place] 1137404-08-2025 10:43-0400Body .18 kgMarc Dolce DPM FACFAS Work Phone: [phone] [place], [place] 1137404-08-2025 10:43-0400Diastolic blood untdvkyw44 mm[Hg]Earnest Peoplesce DPM FACFAS Work Phone: [phone] [place], [place] 1137404-08-2025 10:43-0400Heart rate74 /min Earnest Dolce DPM FACFAS Work Phone: [phone] [place], [place] [address]Xkasomxjgi67-30-6264 10:43-0400Systolic blood hnjhfmny100 mm[Hg]Earnest Salomon DPM FACFAS Work Phone: [phone] [place], [place] 1137402-06-2025 11:39-0500Body rankmx172.29 [facility] 11:39-0500Body mass index (BMI) [Ratio]31.8 kg/j5BqpoavgxxAv[facility]02-06-2025 11:39-0500Body qplaak36 kgAv[facility]02-06-2025 11:39-0500Diastolic blood ndjhvics18 mm[Hg][facility]02-06-2025 11:39-0500Heart rate78 /minAv[facility]02-06-2025 11:39-0500Systolic blood grggovej336 mm[Hg][facility]01-27-2025 16:01-0500Body .6 cmMarc Dolce DPM FACFAS Work Phone: 1(578)[address] [place], [place] 1137401-27-2025 16:01-0500Body mass index (BMI) [Ratio]32.61 kg/m2Marc Dolce DPM FACFAS Work Phone: 1(369)[address] [place], [place] 1137401-27-2025 16:01-0500Body .18 kgMarc Dolce DPM FACFAS Work Phone: 1(903)[address] [place], [place] 1137401-27-2025 16:01-0500Diastolic blood kfwhajhf97 mm[Hg]Earnest Salomon DPM FACFAS Work Phone: 1(205)[address] [place], [place] 1137401-27-2025 16:01-0500Heart rate74 /min Earnest Salomon DPM FACFAS Work Phone: 1(477)[address] [place], [place] 1137401-27-2025 16:01-0500Systolic blood dwfvehxw046 mm[Hg]Earnest Salomon DPM FACFAS Work Phone: 1([phone] [place], [place] 1137401-13-2025 14:15-0500Body zlyvkh586.6 cmMarc Dolce DPM FACFAS Work Phone: [phone]Ukflkmcwuh85-88-9216 14:15-0500Body mass index (BMI) [Ratio]32.61 kg/m2Earnest Salomon DPM FACFAS Work Phone: 1(682)[address] [place], [place] 1137401-13-2025 14:15-0500Body niwjtr10.18 kgEarnest Salomon DPM FACFAS Work Phone: 1(490)[address] [place], [place] 1137401-13-2025 14:15-0500Diastolic blood phrachfr57 mm[Hg]Earnest Salomon DPM FACFAS Work Phone: 1(934)[address] [place], [place] 1137401-13-2025 14:15-0500Heart rate70 /min Earnest Salomon DPM FACFAS Work Phone: 1([phone] [place], [place] 1137401-13-2025 14:15-0500Systolic blood jejiryue426 mm[Hg]Earnest Salomon DPM FACFAS Work Phone: 1(731)[address] [place], [place] 1137410-17-2024 13:32-0400Body lgvsao839.29 cmAv[facility]10-17-2024 13:32-0400Body mass index (BMI) [Ratio]34.7 kg/f3FpaelchgrAvita Health System [facility]10-17-2024 13:32-0400Body .26 kgAv[facility]10-17-2024 13:32-0400Diastolic blood mm[Hg][facility]10-17-2024 13:32-0400 Heart rate76 /minAv[facility]10-17-2024 13:32-0400Systolic blood biykcyhn151 mm[Hg][facility]07-22-2024 10:53-0400 Body qamqhy083.29 cmAvita Health [facility]07-22-2024 10:53-0400Body mass index (BMI) [Ratio]34.5 kg/z8VukgjugxzAvita Health System [facility]07-22-2024 10:53-0400Body flgjjo91.81 kgAvita Health System [facility]10-17-2023 10:30-0400Body .29 cmAmanda Villafana Other [facility] [facility] Other 10-17-2023 10:30-0400Body mass index (BMI) [Ratio] 33.13 kg/n3Xrukbb Khalida [facility] Other 10-17-2023 10:30-0400Body biantn94.18 kgAmanda Khalida Other [facility] [facility] Other 10-17-2023 10:30-0400Diastolic blood pqbkeubl60 mm[Hg] Amanda Khalida [facility] Other 10-17-2023 10:30-0400Systolic blood lzjrmuku218 mm[Hg] Amanda Khalida Other [facility] Other 06-09-2022 21:00-0400Diastolic blood mm[Hg] Pete Maldonado [facility]06-09-2022 21:00-0400Heart rate78 /minTim Joel [facility]06-09-2022 21:00-0400 Hourly RoundingTim Joel [facility]06-09-2022 21:00-0400Mean blood yiaujvmh195 mm[Hg]Pete Maldonado [facility]06-09-2022 21:00-0400 Promise to ReturnTim Joel [facility]06-09-2022 21:00-0400 Respiratory rate14 /minTim Joel [facility]06-09-2022 21:00-2478YwA6% (BldA) [Mass fraction]99 %Pete Maldonado [facility]06-09-2022 21:00-0400 Systolic blood eysypfyl955 mm[Hg]Pete Maldonado [address] [place], [place] 3835806-09-2022 20:00-0400 Diastolic blood vlohmpqi99 mm[Hg]Pete Maldonado [address] [place], [place] 3835806-09-2022 20:00-0400Heart rate77 /minTim Joel [address] [place], [place] 3835806-09-2022 20:00-0400Mean blood wmncuyrh884 mm[Hg]Pete Maldonado [address] [place], [place] 3835806-09-2022 20:00-0400 Systolic blood cvecwdgj127 mm[Hg]Pete Maldonado [address] [place], [place] 3835806-09-2022 19:00-0400 Diastolic blood kkkgvukf14 mm[Hg]Pete Maldonado [address] [place], [place] 3835806-09-2022 19:00-0400Heart rate74 /minTim Joel [address] [place], [place] 3835806-09-2022 19:00-0400Mean blood qwfpnrus004 mm[Hg]Pete Maldondao [address] [place], [place] 3835806-09-2022 19:00-0400 Respiratory rate11 /minTim Joel [address] [place], [place] 3835806-09-2022 19:00-7638IwG4% (BldA) [Mass fraction]97 %Pete Maldonado [address] [place], [place] 3835806-09-2022 19:00-0400 Systolic blood xgocbuvo180 mm[Hg]Pete Maldonado [address] [place], [place] 3835806-09-2022 18:22-0400gluc 146 mg/dLPete Maldonado [address] [place], [place] 3835806-09-2022 18:22-0400gluc Pete Maldonado [address] [place], [place] [id number] 17:55-0400Body ekvozyakpdr00.24 [degF]Pete Maldonado [facility]06-09-2022 17:55-0400Heart rate76 /minPete Maldonado [facility]06-09-2022 17:55-0400 Respiratory rate18 /minTim Joel [facility] Encounters Encounter DateEncounter TypeCare ProviderFacilityStart: 06-03-2025 End: 11-41-1997Njmxqp flowsheetMarc D Dolce DPM FACFAS Work Phone: [facility]oms [facility] [place]ownStart: 06-03-2025 End: 61-63-3994Jnuebb flowsheetMarc D Dolce DPM FACFAS Work Phone: noms [facility] [place]ownStart: 06-03-2025 End: 55-19-9811Owtblz outpatient visit 25 minutesMarc D Dolce DPM FACFAS Work Phone: noms NMA PODComment on above:Left foot pain (Primary Dx); Neoplasm of uncertain behavior of skinStart: 06-03-2025 End: 39-70-3471fwsvlcieztEGJP D DOLCENot AvailableStart: 04-23-2025 End: 36-86-3966fmzyamitewIJB WAQAS A LEHMANNFacility:FT BellevueStart: 03-26-2025 End: 07-15-7129vgztfnqsibAJF WAQAS A LEHMANNFacility:FTMCStart: 03-15-2025 ambulatoryKaylinn DokkenFacility:FT BellevueStart: 02-19-2025 End: 63-90-1111Jpjjiu flowsheetMarc D Dolce DPM FACFAS Work Phone: NOMS ASC PODStart: 02-19-2025 End: 18-33-7951Amqbvx flowsheetMarc D Dolce DPM FACFAS Work Phone: [facility] ASC PODStart: 02-19-2025 End: 71-12-7429Lulopxl encounter procedureMarc D Dolce DPM FACFAS Work Phone: [phone] NMA PODComment on above:Hallux valgus of left foot (Primary Dx); Left foot painStart: 02-19-2025 End: 13-97-5527aobzbynfzyACHR D DOLCENot AvailableStart: 02-05-2025 End: 71-51-0753Vdduuo flowsheetMarc D Dolce DPM FACFAS Work Phone: [phone] ASC PODStart: 02-05-2025 End: 27-96-1938Svtsfs flowsheetMarc D Dolce DPM FACFAS Work Phone: [phone] ASC PODStart: 02-05-2025 End: 67-04-7241jwumdsewioPLDZ D DOLCENot AvailableStart: 02-05-2025 End: 43-59-0151Lpryidb encounter procedureMarc D Dolce DPM FACFAS Work Phone: [phone] NMA PODComment on above:Hallux valgus of left foot (Primary Dx); Left foot painStart: 01-23-2025 End: 05-28-2241tgjzociexwCFXQ D DOLCENot AvailableStart: 01-23-2025 End: 81-70-6849Dxhxxod encounter procedureMarc D Dolce DPM FACFAS Work Phone: [phone] NMA PODComment on above:Hallux valgus of left foot (Primary Dx); Plantar fasciitisStart: 01-23-2025 End: 76-84-1636Mjgrbb flowsheetMarc D Dolce DPM FACFAS Work Phone: [phone]-NOMS ASC PODStart: 01-23-2025 End: 74-96-3721Dmpsex flowsheetMarc D Dolce DPM FACFAS Work Phone: [phone] ASC PODStart: 01-21-2025 End: 83-37-1817Rpgiwsqyv department patient Marco Syed [facility] Start: 01-15-2025 End: 93-64-1019Umbljy flowsheetMarc D Dolce DPM FACFAS Work Phone: NOVG ASC PODStart: 01-15-2025 End: 51-69-0341Gmgfhu flowsheetMarc D Dolce DPM FACFAS Work Phone: [facility] ASC PODStart: 01-15-2025 End: 66-85-4610hcvqxivuqaSDHM D DOLCENot AvailableStart: 01-15-2025 End: 45-43-4656Azhqmep encounter procedureMarc D Dolce DPM FACFAS Work Phone: NOMS NMA PODComment on above:Hallux valgus of left foot (Primary Dx); Left foot pain; Plantar fasciitisStart: 01-09-2025 End: 54-36-9922Pwkgpvagr encounterMarc D Dolce DPM FACFAS Work Phone: NOMS [place] PodiatryStart: 01-02-2025 End: 09-65-6450Pqdlnc flowsheetMarc D Dolce DPM FACFAS Work Phone: [phone] ASC PODStart: 01-02-2025 End: 73-51-6072Bfqrrq flowsheetMarc D Dolce DPM FACFAS Work Phone: [facility] ASC PODStart: 01-02-2025 End: 44-46-4272Fbkipfiap Result EncounterMarc D Dolce DPM FACFAS Work Phone: NOMS External Department UnsolicitedStart: 01-02-2025 End: 15-27-5501qjozkglzouKIUA D DOLCENot AvailableStart: 01-02-2025 End: 00-89-3954Kxzsuw outpatient visit 25 minutesMarc D Dolce DPM FACFAS Work Phone: NOMS NMA PODComment on above:Hallux valgus of left foot (Primary Dx); Plantar fasciitisStart: 12-24-2024 End: 94-47-0730Sjkhuyfwn Result EncounterMarc D Dolce DPM FACFAS Work Phone: NOMS External Department UnsolicitedStart: 12-24-2024 End: 10-02-8716Qfiawiznw Result EncounterMarc D Dolce DPM FACFAS Work Phone: NOMS External Department UnsolicitedStart: 12-04-2024 End: 52-13-8744Hqmgtm flowsheetMarc D Dolce DPM FACFAS Work Phone: NOMS ASC PODStart: 12-04-2024 End: 89-35-6117Cyhsvh flowsheetMarc D Dolce DPM FACFAS Work Phone: NOMS ASC PODStart: 12-04-2024 End: 95-79-9606Bxuxbwhat encounterMarc D Dolce DPM FACFAS Work Phone: noms WH PODStart: 12-04-2024 End: 29-64-1198Pgragu outpatient visit 25 minutesMarc D Dolce DPM FACFAS Work Phone: NOMS NMA PODComment on above:Hallux valgus of left foot (Primary Dx); Plantar fasciitis; Gastrocnemius equinus of left lower extremityStart: 12-04-2024 End: 46-30-1634rqaglnefrpNYCR D DOLCENot AvailableStart: 11-13-2024 End: 21-30-1022wkjvwilvteQBMC D DOLCENot AvailableStart: 10-04-2024 End: 46-59-4889hhpatrcugpAzjkarpntBucyrus Community Hospital Work Phone: Start: 10-04-2024 End: 75-42-0574Grcfiem encounter procedureVidant [facility] Work Phone: Start: 09-24-2024 End: 74-08-7029naaocotdqzYYHN D DOLCENot AvailableStart: 09-24-2024 End: 01-94-1582Xfkfar outpatient visit 15 minutesMarc D Dolce DPM FACFAS Work Phone: NOMS NMA PODComment on above:Gastrocnemius equinus of left lower extremity (Primary Dx); Plantar fasciitis; Calcaneal spur, left footStart: 09-24-2024 End: 74-84-5478Vkhxvn flowsheetMarc D Dolce DPM FACFAS Work Phone: NOMS ASC PODStart: 09-24-2024 End: 31-57-6458Ngghgq flowsheetMarc D Dolce DPM FACFAS Work Phone: [phone] ASC PODStart: 09-10-2024 End: 94-25-8578uyawuvjhzwGPNT D DOLCENot AvailableStart: 09-10-2024 End: 80-99-6778Bmdvbm flowsheetMarc D Dolce DPM FACFAS Work Phone: [phone] ASC PODStart: 09-10-2024 End: 05-64-9551Ilvwqx flowsheetMarc D Dolce DPM FACFAS Work Phone: [phone] ASC PODStart: 09-10-2024 End: 40-63-6576Keobfg outpatient new 30 minutesMarc D Dolce DPM FACFAS Work Phone: [phone] NMA PODComment on above:Calcaneal spur, left foot (Primary Dx); Plantar fasciitis; Gastrocnemius equinus of left lower extremityStart: 93-16-4533Scd-patient / Non-visitFirbon [facility] Work Phone: Start: 06-14-2024 End: 51-89-6780qtzjjfkhdbImqvwatfcAdena Health System Work Phone: Start: 06-14-2024 End: 16-88-7635Uytkldu encounter procedureVidant P[facility] Work Phone: Start: 03-19-2024 End: 50-97-1393drejfqcqcpVzitztlliAdena Health System Work Phone: Start: 03-19-2024 End: 89-66-3360Icdlvpk encounter procedureVidant P[facility] Work Phone: Start: 81-24-9674Djt-patient / Non-visitFirelands [facility] Work Phone: Start: 85-10-1682wffagkdqlbWujimmDswrl: 09-26-2023 End: 27-89-7947iwszkckaqxTqzgsq Villafana Other [facility] Other Start: 07-99-1186Lnkikmblp encounterMarcia Samuel [facility] Hospitaltart: 08-04-2023 End: 11-24-8406vabfxzvcqzOkfigp Villafana Other [facility] Other Start: 23-11-1265Uropckhzh encounterMarcia Samuel [facility] Hospitaltart: 07-05-2023 End: 61-60-4437qqyrzrgdwzHurbnw Villafana Other [facility] Other Start: 42-19-5786Uzlbkgaow encounterMarcia Samuel [facility] Hospitaltart: 06-28-2023 End: 00-21-5260lrusigqyuqNoxdhu Villafana Other [facility] Other Start: 23-91-0407Hbfglbzek encounterMarcia Samuel [facility]s Memorial Hospitaltart: 06-27-2023 End: 07-01-8152wohqjwfsyxWeilow Villafana Other [facility] Other Start: 14-61-9095Znwlmdkgq encounterMarcia Samuel [facility] Hospitaltart: 06-23-2023 End: 53-70-2230nddbdcfnzmDvassd Villafana Other [facility] Other Start: 70-52-0775Dyqcazbhh encounterMarcia Samuel [facility] Hospitaltart: 06-14-2023 End: 84-06-7435ysnmblvaydYhibwy Villafana Other [facility] Other Start: 41-73-7466Gnkfrp outpatient visit 15 minutes Amanda VillafanaRaúl [facility] Centertart: 05-31-2023 End: 49-92-2743xukjlwnygpZfthza Khalida Other [facility] Other Start: 56-03-8841Luaclacdn encounterAmanda Bryant [facility] Centertart: 03-08-2023 End: 48-00-0879Bojnixj encounter procedureSAMANTA COTA [facility] Start: 12-13-2022 End: 56-88-9811Hen-admission assessmentSAMANTA COTA [facility] Start: 12-12-2022 End: 69-66-1259ykdepdprnvHJA SAMANTA AICHHOLZFacility:R2Vyppv: 11-29-2022 End: 30-27-5068nrmyqmttuzNUS SAMANTA AICHHOLZFacility:T4Rmzxw: 23-05-7034uxhqbyopiw 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 PUMP OPERATOR SAMANTA AICHHOLZFacility:E9Kpblt: 09-14-2022 End: 56-16-2248znltlwjtsiFAB SAMANTA AICHHOLZFacility:G3Igrff: 06-09-2022 End: 17-17-9227gapmemblzrYNU SAMANTA AICHHOLZFacility:F7Rfsga: 05-06-2022 End: 21-63-5344Hot-admission assessmentLISA Ara COTA [facility] Start: 02-15-2022 End: 25-53-3885refgdmyamqOKI SAMANTA AICHHOLZFacility:G5Wtiob: 02-04-2022 End: 76-20-6384Wsyztrgag department patient visitTim Joel [facility] Start: 12-31-2021 End: 05-15-4756ynsztnxrviMTD SAMANTA SOLIMANHHOLZFacility:D6Yhocb: 03-31-2019 End: 14-73-4433Bczxepuvqn and management of inpatientPROVIDER UNKNOWN Facility:[facility] Procedures DateProcedureProcedure DetailPerforming ClinicianStart: 60-63-2006Saxys foot complete minimum 3 viewsMarc D Dolce DPM FACFAS Work Phone: Start: 75-64-1089Axofj foot complete minimum 3 views Earnest D Dolce DPM FACFAS Work Phone: Start: 40-01-3919Somjn foot complete minimum 3 views Earnest D Dolce DPM FACFAS Work Phone: Start: 79-72-4024Tchis foot complete minimum 3 views Earnest D Dolce DPM FACFAS Work Phone: Start: 66-16-6717LG FOOT LT MIN 3VMarc D Dolce DPM FACFAS Work Phone: Start: 35-19-3564XWL CBC WITH AUTO DIFFMarc D Dolce DPM FACFAS Work Phone: Start: 57-87-6416XTQ 12-LEADMarc D Dolce DPM FACFAS Work Phone: Start: 09-19-2020H/O: sectionHistory of sectionMarc Dolce DPM FACFAS Work Phone: Start: 23-30-0170Lqspemqwiwt observation [Identifier] in Cervix by Cyto stainMarc Dolce DPM FACFAS Work Phone: Cesarean sectionTim Joel Cesarean sectionTim Joel Cesarean sectionKaylroger Syed Endometrial ablationConnerylroger Syed H/O: tubal ligationPete Alfonso Plan of Treatment DateCare ActivityDetailAuthorStart: 06-03-2025 End: 70-01-8276Vvvluja encounter mtudqejgp12/06/2025 10:10 AM EDT Office Visit [facility] [address] [place] [address] Earnest Salomon, DPM FACFAS [address] [facility] [place] [address] ArrivedNOMS NMA PODComment on above:ArrivedStart: 02-19-2025 End: 98-39-1104Lwkxapz encounter procedureNOMS NMA PODComment on above:Arrived Start: 02-05-2025 End: 41-41-4136Lbgsjcn encounter /10/2025 11:40 AM EDT Office Visit [facility] [address] [place] [address] Earnest Salomon, DPM FACFAS [address] [facility] [place] [address] NOMS NMA PODStart: 01-23-2025 End: 53-16-4123Illzdpd encounter dkyalvkcs64/28/2025 3:30 PM EDT Office Visit [facility] [address] [place] [address] Earnest Salomon, DPM FACFAS [address] [facility] [place] [address] NOMS NMA PODStart: 01-15-2025 End: 38-71-1716Eciixvl encounter ycqizomqd96/20/2025 10:30 AM EDT Office Visit [facility] [address] [place] [address] Earnest Salomon, DPM FACFAS [address] [facility] [address] [place] [address] NOMS NMA PODStart: 01-02-2025 End: 92-75-9562Xfiegza encounter cgidvrazb00/07/2025 10:40 AM EDT Office Visit [facility] [address] [place] [address] Earnest Salomon, DPM FACFAS [address] [place] [address] NOMS NMA PODStart: 12-04-2024 End: 42-62-3454Znukgfsn Nvbwgrj6512/04/2024 9:50 AM EDT Clinical Support [facility] [address] [place] [address] Earnest Salomon, DPM FACFAS [address] [place] [address] ArrivedVA [facility]OSPITAL NMA PODComment on above:ArrivedStart: 10-15-2024 End: 33-58-9562Wrujnxto Bxgyhqd0510/15/2024 3:00 PM EST Clinical Support [facility] [address] [place] [address] Earnest Salomon, DPM FACFAS [address] [place] [address] [facility] NMA PODStart: 47-56-9662Envnwdoxe vaccinationInfluenza Vaccine (#1)[facility] HealthcareStart: 84-07-2674Hscackfnw for malignant neoplasm of breastMammogram [facility] HealthcareStart: 82-75-2130Vepnetjsl for malignant neoplasm of cervixNOMS HealthcareStart: 52-04-0334Sxlqa screening for proteinDiabetes: Urine Protein ScreeningVA HOSPITAL HealthcareStart: 51-48-2862Bptkchok screeningDiabetes: Retinopathy ScreeningNOUT HealthcareStart: 84-47-9431Ihastqtmhq A1c measurementDiabetes: Hemoglobin C0HKSRPSaint Alexius HospitalStart: 61-30-4797Bcjnzavft for malignant neoplasm of colonNOMS HealthcareXR Foot - left 3 ViewsXR foot 3+ views left Imaging Routine Hallux valgus of left foot Ordered: 01/02/2025[facility] Work Phone: Comment on above:Ordered: 01/02/2025XR Foot - left GE 3 [facility] Immunizations Immunization DateImmunizationNotesCare ProviderFacilityNEGATED: Highlighted row has not occurred!22-85-0339xkqfcbxij virus vaccine, unspecified formulation Pedro Syed 262-4374Kvaqde-XcbfwPremier Health [facility] Magdiel Payers DatePayer CategoryPayerPolicy [id number] [id number] Health InsuranceSELECT [facility]ICA[facility] [id number] 2..[id number] 2..1.585793.3.57[id number] 2..1.395444.3.57[id number] 2..1.576217.3.57[id number] 2..1.621699.3.57[id number] 2.16.840.1.769883.3.57[id number] 2.0.1.771479.3.579.2.63939-51-4856Fnqyimd2519044 2.840.1.976198.3.579.2.96800-69-0726Fmjcguf24131596 2..1.427754.3.579.2.09206-19-0780Wsjqanm40839385 2.0.1.325581.3.579.2.27385-20-1976Jjiedai50339265 2..1.796595.3.579.2.30635-81-6178Ohuqxko33285632 2..1.284770.3.579.2.98349-99-1178Swtpsnc64761775 2..1.818790.3.579.2.94038-93-6056Jpbmbie57533600 2..1.434713.3.579.2.948813-63-6801Ivpckno17982948 2..1.814284.3.579.2.324807-78-3314Kaprplt85469128 2..1.651108.3.579.2.968413-82-9726Twstahc59750356 2..1.032562.3.579.2.097204-59-3170Fatrmyu75603165 2..1.957199.3.579.2.376768-94-1127Eyzctgt11974351 2..1.245605.3.579.2.503484-98-6017Kfxwanl2178769 2..1.179268.3.579.2.014325-75-6549Thiuejf2025120 2.16.840.1.485867.3.579.2.405703-38-0023Ghpuzvg5090025 2.16.840.1.746192.3.579.2.774880-99-6149Sozhxse8216226 2.16.840.1.765875.3.579.2.522470-89-8806Kcgmqzb4005131 2..840.1.197927.3.579.2.529904-42-4837Ahnbere7341778 2..840.1.725428.3.579.2.920257-81-3007Usgxeba1392282 2.16.840.1.489113.3.579.2.700521-86-1646Jsebreh6841687 2..840.1.238081.3.579.2.627403-90-1969Eqvqbkf2962410200920-43-7664Ftxmlqt 642701188722WpbzqzsYQD205227408 cmx5vt52-s800-186t-dzs7-78fn0z82h20z Social History DateTypeDetailFacilityTobaccoUnknown if ever smokedKindred Hospital [facility] Comment on above:deniesStart: 09-10-2024 End: 83-67-8439Fea Assigned At BirthFeHolzer Health SystemTobacco smoking statusGreene Memorial Hospitaltart: 06-14-2023 End: 02-06-4601Cmniijw smoking status NHISEx-smoker (finding)[facility]: [id number] Assigned At BirthFeUC [facility] HospitalTobacco smoking status NHISTobacco smoking consumption unknownNOMS HealthcareStart: 99-52-6047Edh assigned at birthNot on fileNOMS Healthcare Start: 93-05-0543Czambqf smoking status NHISNever smoked tobaccoNOUT Healthcare Work Phone: Start: 46-35-4963Xysduvo use and exposureSmokeless tobacco non-userNOMS HealthcareStart: 09-10-2024 End: 45-80-0590Slnjydwud beverage intakeDeferNOMS HealthcareStart: 09-10-2024 End: 69-78-4303Utklpuw of Social functionNOMS HealthcareStart: 12-10-2009 End: 86-46-9522OmcPguoew (finding)[facility] Clinical Notes 11-07-2020 to 06-03-2025 Note Date & AdkbMplhXjnobqsu30-50-2644 History of Present illness Narrative* Earnest Salomon DPM FACFAS - 06/03/2025 10:10 AM EDT Images from the original note were not included. Patient: Apryl Downs : 1980 PCP: Amanda Villafana MD SUBJECTIVE This is a 44 y.o. female that presents today for a chief complaint of of painful soft tissue mass noted at the dorsal aspect of the left foot at the level of the forefoot. She states it was quite painful and brooks at times and does radiate both distally and proximally. It has been slow growing and quite uncomfortable in shoes. 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 Allergies: Allergies Allergen Reactions Oxycodone-Acetaminophen Rash Has tolerated norco in the past Past Medical History: Active Ambulatory Problems Diagnosis Date Noted Engages in baptism activities 10/02/2020 Endogenous hyperlipemia 10/02/2020 Heart murmur 10/02/2020 History of section 09/19/2020 Hypothyroidism 10/02/2020 Iron deficiency anemia due to chronic blood loss 09/09/2020 (spontaneous vaginal delivery) ([facility] 09/19/2020 Systolic murmur 10/02/2020 Resolved Ambulatory Problems [...] taking: Reported on 09/10/2024), Disp: , Rfl: ROS: Constitutional: Denies fever, chills, nausea, vomiting GI: Denies abdominal pain, cramping, loose stool, gastric ulcers Musculoskeletal: Denies low back pain, knee pain, systemic arthritis Neurologic: Denies burning, tingling, transient paralysis OBJECTIVE Physical examination: Vascular: Dorsalis pedis posterior tibial pulses are palpable bilateral, no edema noted Neuro: Winston-Lupe 5.07 monofilament intact, vibratory sensation intact Derm: All hair growth noted skin temperature is warm to cool knees to toes Dorsal aspect of the left foot revealed a small slow-growing palpable soft tissue mass freely mobile within the subcutaneoustissue. It was annular in size of the appears to be solid in nature. Burning and tingling noted percussion of the soft tissue mass. Musculoskeletal: Muscle strength +5/5 all intrinsic and extrinsic muscles tested Cardiac:: Regular rate and rhythm normal S1-S2 heart sounds no murmurs or gallops detected. Respiratory: Breath sounds are equal bilaterally no wheezes crackles or strain XRAY: AP/MO/LAT: pedal radiographs demonstrate intact cortical margins and anatomic alignment. Joint spaces are maintained throughout the midfoot forefoot and hindfoot without evidence of acute fracture dislocation or arthropathy US: DIAGNOSTIC ULTRASOUND 12 MEGAHERTZ LINEAR PROBE REVEALED: hypoechoic soft tissue mass noted at the dorsal aspect of the left foot less than 1 cm in size appears to be fluid filled no osseous involvement noted ASSESSMENT 1. Neoplasm of uncertain behavior of skin 2. Left foot pain PLAN I educated the patient the soft tissue mass of the dorsal aspect left foot. I recommended surgical excision versus cortisone injection she elected to have it surgically excised pathological examination. Has it was quite painful wishes to have more definitive treatment. The patient was educated on the pre, tam, postoperative course of the procedure in great detail. We discussed further conservative therapies which the patient has attempted and has failed. I discussed the surgical procedure in great detail including the risks and possible complications. We discussed the following complicationsin great detail including but not limited to: Pain, infection, prolonged swelling, numbness, tingling, burning, nonhealing wound, nonunion, malunion, chronic pain, development of complex regional pain syndrome, development of deep venous thrombosis. Patient fully understood all possible risks and complications. All questions have been asked and answered. They have consented for the above-stated procedure. Patient has been cleared for MAC or popliteal block anesthesia MANUEL Wasserman documented in this encounterWright Memorial [id number] NotePatient Education Endocrinology Diabetes Mellitus and Foot Care Diabetes, also called diabetes mellitus, may cause problems with your feet and legs because of poorblood flow (circulation). Poor circulation may make your skin: ??? Become thinner and drier operator helper. ??? Break more easily. ??? Heal more slowly. ??? Peel and crack. You may also have nerve damage (neuropathy). This can cause decreased feeling in your legs and feet. This means that you may not notice minor injuries to your feet that could lead to more serious problems. Finding and treating problems early is the best way to prevent future foot problems. How to care for your feet Foot hygiene ??? Wash your feet daily with warm water and mild soap. Do not use hot water. Then, pat your feet and the areas between your toes until they are fully dry. Do not soak your feet. This can dry your skin. ??? Trim your toenails straight across. Do not dig under them or around the cuticle. File the edgesof your nails with an emery board or nail file. ??? Apply a moisturizing lotion or petroleum jelly to the skin on your feet and to dry, brittle toenails. Use lotion that does not contain alcohol and is unscented. Do not apply lotion between your toes. Shoes and socks ??? Wear clean socks or stockings every day. Make sure they are not too tight. Do not wear knee-high stockings. These may decrease blood flow to your legs. ??? Wear shoes that fit well and have enough cushioning. Always look in your shoes before you put them on to be sure there are no objects inside. ??? To break in new shoes, wear them for just a few hours a day. This prevents injuries on your feet. Wounds, scrapes, corns, and calluses ??? Check your feet daily for blisters, cuts, bruises, sores, and redness. If you cannot see the bottom of your feet, use a mirror or ask someone for help. ??? Do not cut off corns or calluses or try to remove them with medicine. ??? If you find a minor scrape, cut, or break in the skin on your feet, keep it and the skin aroundit clean and dry. You may clean these areas with mild soap and water. Do not clean the area with peroxide, alcohol, or iodine. ??? If you have a wound, scrape, corn, or callus on your foot, look at it several times a day to make sure it is healing and not infected. Check for: ? Redness, swelling, or pain. ? Fluid or blood. ? Warmth. ? Pus or a bad smell. General tips ??? Do not cross your legs. This may decrease blood flow to your feet. ??? Do not use heating pads or hot water bottles on your feet. They may burn your skin. If you havelost feeling in your feet or legs, you may not know this is happening until it is too late. ??? Protect your feet from hot and cold by wearing shoes, such as at the beach or on hot pavement. ??? Schedule a complete foot exam at least once a year or more often if you have foot problems. Report any cuts, sores, or bruises to your health care provider right away. Where to find more information ??? [place] Diabetes Association: diabetes.org ??? Association of Diabetes Care & Education Specialists: diabeteseducator.org Contact a health care provider if: ??? You have a condition that increases your risk of infection, and you have any cuts, sores, or bruises on your feet. ??? You have an injury that is not healing. ??? You have redness on your legs or feet. ??? You feel burning or tingling in your legs or feet. ??? You have pain or cramps in your legs and feet. ??? Your legs or feet are numb. ??? Your feet always feel cold. ??? You have pain around any toenails. Get help right away if: ??? You have a wound, scrape, corn, or callus on your foot and: ? You have signs of infection. ? You have a fever. ? You have a red line going up your leg. This information is not intended to replace advice given to you by your health care provider. Make sure you discuss any questions you have with your health care provider. Document Revised: 02/16/2023 Document Reviewed: 02/16/2023 [employer] Patient Education ? 2023 [employer].[facility] 02-19-2025 History of Present illness Narrative* Earnest Salomon DPM FACFAS - 02/19/2025 11:50 AM EDT [...] Ambulatory Problems Diagnosis Date Noted Engages in baptism activities 10/02/2020 Endogenous hyperlipemia 10/02/2020 Heart murmur 10/02/2020 History of section 09/19/2020 Hypothyroidism 10/02/2020 Iron deficiency anemia due to chronic blood loss 09/09/2020 (spontaneous vaginal delivery) ([facility]) 09/19/2020 Systolic murmur 10/02/2020 Resolved Ambulatory Problems [...] < 3 seconds Digits 1-5 bilateral NEURO: Winston Lupe 5.07 monofilament was intact B/L. Vibratory [...] Patient is doing very well educated on wjbiv-wc-cloljf exercises due with a surgical boot for 2 more weeks she is progressing well I did dispensed Tubigrip to her today she is to elevate and ice follow up with me in 2 weeks for reassessment. MANUEL Wasserman documented in this encounterWright Memorial [id number] History of Present illness Narrative* MANUEL Wasserman - 02/05/2025 11:40 AM EDT Images from the original [...] Ambulatory Problems Diagnosis Date Noted Engages in baptism activities 10/02/2020 Endogenous hyperlipemia (CMS/HCC) 10/02/2020 Heart [...] < 3 seconds Digits 1-5 bilateral NEURO: Winston Lupe 5.07 monofilament was intact B/L. Vibratory [...] Patient is doing very well educated on xiyyy-wr-skkbcl exercises due with a surgical boot for 2 more weeks she is progressing well I did dispensed Tubigrip to her today she is to elevate and ice follow up with me in 2 weeks for reassessment MANUEL Wasserman documented in this encounterWright Memorial [id number] History of Present illness Narrative* MANUEL Wasserman - 01/23/2025 3:30 PM EDT Images from the original note were [...] Ambulatory Problems Diagnosis Date Noted Engages in baptism activities 10/02/2020 Endogenous hyperlipemia (CMS/HCC) 10/02/2020 Heart [...] < 3 seconds Digits 1-5 bilateral NEURO: Winston Lupe 5.07 monofilament was intact B/L. Vibratory [...] Patient is doing very well educated on izbmy-gk-feulre exercises I removed the sutures today see continue with a pneumatic walking boot follow up with me in 2 weeks for x-rays dressing very well MANUEL Wasserman documented in this encounterNOMS [id number] Hospital Discharge instructions Patient Education 01/22/2025 00:38:41 Migraine Headache, Rmmj-jm-Twgn Migraine Headache A migraine headache is a very strong throbbing pain on one or both sides of your head. This type ofheadache can also cause other symptoms. It can [...] Follow these instructions at home: Medicines Take azkl-qga-oauoxxd and prescription medicines only as told by [...] migraine headaches. This can help you avoid thosethings. For example, write down: ?What you eat [...] for Headache and Migraine Patients (CHAMP): headachemigraine.org [place] Migraine Foundation: americanmigrainefoundation.org National Headache Foundation: headaches.org [...] provider. Document Revised: 04/11/2023 Document Reviewed: 04/11/2023 [employer] Patient Education 2023 [employer]. Follow Up Care 01/21/2025 22:31:46 With:Brigido Fisher Address: [address], [place] [address]- Business (1) When:01/25/2025 Comments:You can use the Zofran every 6 hours as needed for nausea and vomiting. Please follow-up with your primary care doctor and neurology for further evaluation management of your symptoms. Please return to the ED for any new or worsening symptoms. With:AMANDA VILLAFANA Address: [address] [place] [phone]- Business (1) When:Within 3 Day(s) [facility] 05-27-2025 NoteED Patient Education Note Neurology Migraine Headache A migraine headache is a very strong throbbing pain on one or both sides of your head. This type ofheadache can also cause other symptoms. It can [...] these instructions at home: Medicines ??? Take sgmq-okl-pfqdewp and prescription medicines only as told by [...] Headache and Migraine Patients (CHAMP): headachemigraine.org ??? [place] Migraine Foundation: americanmigrainefoundation.org ??? National Headache Foundation: [...] advice given to yo (more content not included)...[facility]05-26-2025 Evaluation + Plan note Extracted from:Title:ED NoteAuthor:Pedro Syed DO ADate:01/21/25 Headache, migraine (G43.909: Migraine, unspecified, not intractable, without status migrainosus) Orders: dexamethasone, 10 mg = 1 mL, Injection, IV Push, Once, Stop date 01/21/25 22:58:00 EDT, STAT, Startdate 01/21/25 22:58:00 EDT, Administer over no less [...] q6hr, # 12 tab(s), Refills(s) 0, Pharmacy: [facility]/pharmacy #[id number], 162, cm, 01/21/25 22:41:00 EDT, Height/Length Dosing, 94.6, kg, 01/21/25 22:41:00 EDT, Weight Dosing Sodium Chloride 0.9% intravenous solution 1,000 mL, 1,000 mL, IV, 983.61 mL/hr, for 30 day(s), Stopdate 02/20/25 22:57:00 EDT, STAT, Start date 01/21/25 22:58:00 EDT, 61 minute(s), Total volume (mL): 1,000, 94.6 kg, 2.06, m2 [facility] 05-20-2025 History of Present illness Narrative* Earnest Salomon DPM FACFAS - 01/15/2025 10:30 AM EDT Images from the original note were not included. Patient: Apryl HICKS: 1980 PCP: Amanda Villafana MD SUBJECTIVE This [...] Ambulatory Problems Diagnosis Date Noted Engages in baptism activities 10/02/2020 Endogenous hyperlipemia ([facility]/HCC) 10/02/2020 Heart murmur 10/02/2020 History of section 09/19/2020 Hypothyroidism ([facility]) 10/02/2020 Iron deficiency anemia due to chronic [...] < 3 seconds Digits 1-5 bilateral NEURO: Winston Lupe 5.07 monofilament was intact B/L. Vibratory [...] the radiographic findings recommended she continue with shbrg-jb-bsibml exercises. I dispensed a Pneumatic walking boot [...] Supplier Guidelines. MANUEL Wasserman documented in this encounterWright Memorial [id number] History of Present illness Narrative* MANUEL Wasserman - 01/02/2025 11:40 AM EDT Images from the original note were not included. ,ePatient: Apryl Downs : 1980 PCP: Amanda Villafana [...] 0.55 - 1.02 mg/dL Final [facility] EGFR-AF ISRAELI 01/02/2025 >60 >=60 mL/min/1.73m 2 Final [facility] EGFR-NON AF ISRAELI 01/02/2025 >60 >=60 mL/min/1.73m 2 Final BUN [...] < 3 seconds Digits 1-5 bilateral NEURO: Winston Lupe 5.07 monofilament was intact B/L. Vibratory [...] Radiographs: AP/MO/LAT: X-[facility] to [facility] ASSESSMENT 1. Plantar fasciitis 2. Hallux valgus [...] block anesthesia MANUEL Wasserman documented in this encounterWright Memorial [id number] Telephone encounter Note* Telephone Encounter - MANUEL Wasserman - 12/04/2024 10:40 PM EDT Phone #: [phone] Insurance: Payor: [employer] / Plan: [employer] [place] / Product Type: *No Product type* / Preferred Date/Time: First Available [x] SULEMA [] Patient Name: Apryl Downs : 1980 Surgeon: Dr. Earnest Salomon [x] Dr. Hans Salomon [] Location: [facility] [x] [facility] [] [facility] [] Procedure(s): 1. Trell bunionectomy left foot 2. Endoscopic plantar fasciotomy left foot CPT Code(s): 94964. 06216 Diagnosis: ICD-10-CM 1. Plantar fasciitis M72.2 2. [...] Clearance: Cardiology [] Rheumatology [] Other [] Wright Memorial [id number] Miscellaneous Notes* Telephone Encounter - MANUEL Wasserman - 12/04/2024 10:40 PM EDT Phone #: [phone] Insurance: Payor: [employer] / Plan: [employer] [place] / Product Type: *No Product type* / Preferred Date/Time: First Available [x] SULEMA [] Patient Name: Apryl Downs : 1980 Surgeon: Dr. Earnest Salomon [x] Dr. Hans Salomon [] Location: [facility] [x] [facility] [] [facility] [] Procedure(s): 1. Trell bunionectomy left foot 2. Endoscopic plantar fasciotomy left foot CPT Code(s): 59742. 31307 Diagnosis: ICD-10-CM 1. Plantar fasciitis M72.2 2. [...] Rheumatology [] Other [] documented in this encounterWright Memorial HospitalTrdlziejjw60-47-2754 History of Present illness Narrative* MANUEL Wasserman - 12/04/2024 9:50 AM EDT Images from the original note were not included. ,mdePatient: Apryl Downs : 1980 PCP: Amanda Villafana [...] < 3 seconds Digits 1-5 bilateral NEURO: Winston Lupe 5.07 monofilament was intact B/L. Vibratory [...] and answered. MANUEL Wasserman documented in this encounterWright Memorial HospitalEzxjkttxme46-98-6783 History of Present illness Narrative* Earnest Salomon DPM FACLEXIS - 09/24/2024 3:40 PM EST Images from [...] < 3 seconds Digits 1-5 bilateral NEURO: Winston Lupe 5.07 monofilament was intact B/L. Vibratory [...] 2 weeks. MANUEL Wasserman documented in this encounterWright Memorial [id number] History of Present illness Narrative* MANUEL Wasserman [...] numerous conservative therapies including: shoe gear modifications, kgpm-kqg-ohetmut anti-inflammatory medications, wxps-now-mmmuhdl orthotic devices to no avail. They rate [...] < 3 seconds Digits 1-5 bilateral NEURO: Winston Lupe 5.07 monofilament was intact B/L. Vibratory [...] symptoms of post- static dyskinesia, 2.) Prevent kpl-mjfiga-bucrwev contracture of the Achilles tendon. 3.) Provide [...] Supplier Guidelines. MANUEL Wasserman documented in this encounterWright Memorial HospitalDsicqcjask89-92-2155 Evaluation note* Encounter Date Diagnosis Assessment Notes Treatment Notes Treatment Clinical Notes Aug, Type 2 diabetes tahira itus with hyperglycemia, without long-term current use of insulin (ICD-10 - E11.65) [facility] Other 11-07-2023 Evaluation note* Encounter Date Diagnosis Assessment Notes Treatment Notes Treatment Clinical Notes Jun, Other iron deficiency anemia (IC D-10 - D50.8) [facility] Other 10-31-2023 Evaluation note* Encounter Date Diagnosis Assessment Notes Treatment Notes Treatment Clinical Notes May, Type 2 diabetes tahira itus with hyperglycemia, without long-term current use of insulin (ICD-10 - E11.65) [facility] Other 10-30-2023 Evaluation note* Encounter Date Diagnosis Assessment Notes Treatment Notes Treatment Clinical Notes May, Type 2 diabetes tahira itus with hyperglycemia, without long-term current use of insulin (ICD-10 - E11.65) [facility] Other 10-17-2023 Evaluation note* Encounter Date Diagnosis Assessment Notes Treatment Notes Treatment Clinical Notes May, Other iron deficiency anemia (IC D-10 - D50.8) obtain labs. recheck due to fatigue May,Type 2 diabetes mellitus with hyperglycemia, without long-term current use of insulin (ICD-10 - E11.65)Due for A1C will reach out to rep for zuly. Presently it is covered, but her glucose of 220 indicates dose increase. Will sent paperwork for PA again. [facility] Other 10-03-2023 Evaluation note* Encounter Date Diagnosis Assessment Notes Treatment Notes Treatment Clinical Notes May, Type 2 diabetes tahira itus with hyperglycemia, without long-term current use of insulin (ICD-10 - E11.65) [facility] Other 07-11-2023 Evaluation + Plan note Diagnostic Tests Pending * T3 Free 03/08/23 [facility]06-01-2023 History general Narrative - Reported* Type Description Date Medical History DM Medical HistoryhypothyroidMedical HistoryAnemiaSurgical HistoryC SECTION X's 2 Surgical HistoryLeft Oophorectomy01/2023Hospitalization HistorySEE ABOVE SURGERY [facility] Other 03-12-2021 NotePatient Outreach (COVAMN) YARELIAPRYL ([id number]) 1980 F Date Time Provider Department 11/07/20 [facility]IE UP During your visit today, we recorded the following information about you: Allergies As of Date: 11/07/2020 Noted Allergy Reaction OXYCODONE-ACETAMINOPHEN 09/09/2020 2 - Rash Comments: Has tolerated norco in the past Date Reviewed: 10/03/2020 Reviewed by: Bharti Lorenz (Rn) DAWNA Zavala - Fully Assessed Order(s):SARS-COVID VACCINE 1ST DOSE APPT [[id number]] Order #: [id number] FUTURE Prescriptions as of 11/07/2020 Sig: METFORMIN [...] Heart murmur [R01.1] 10/02/2020 More... Patient is Baptism [Z78.9] 10/02/2020 More... Encounter Status:Closed by HODAN CAPPS on 11/10/20[facility] Evaluation + Plan note No data available for this section [facility] noteNo InformationNort ClinicIQ Other Evaluation note* Diagnosis Onset Date Resolution Status Iron deficiency anemia acuteLeft foot painacuteType 2 diabetes mellitus with hyperglycemiaacute [facility] Work Phone: Evaluation note* Diagnosis Onset Date Resolution Status Iron deficiency anemia acuteLeft foot painacuteType 2 diabetes mellitus with hyperglycemiaacuteType 2 diabetes mellitus with hyperglycemiaacute [facility] Work Phone: Evaluation note* Diagnosis Calcaneal spur, left foot- Primary Plantar fasciitis Plantar fascial fibromatosis Gastrocnemius equinus of left lower extremity [facility]* Diagnosis Gastrocnemius equinus of left lower extremity- Primary Plantar fasciitis Plantar fascial fibromatosis Calcaneal spur, left foot [facility] HealthcareEvaluation noteNo assessment information availableCleveland Clinic Foundation Work Phone: Evaluation note* Diagnosis Plantar fasciitis- [...] Plantar fascial fibromatosis documented in this encounter [facility] HealthcareEvaluation note* Diagnosis Hallux valgus of left foot- Primary Plantar fasciitis Plantar fascial fibromatosis documented in this encounter [facility] HealthcareEvaluation note* Diagnosis Hallux valgus of left foot- Primary Left foot pain Pain in soft tissues of limb documented in this encounter [facility] HealthcareEvaluation note* Diagnosis Hallux valgus of left foot- Primary Left foot pain Pain in soft tissues of limb documented in this encounter [facility] HealthcareEvaluation note* Diagnosis Hallux valgus of left foot- Primary Plantar fasciitis Plantar fascial fibromatosis documented in this encounter [facility] HealthcareEvaluation note* Diagnosis Left foot pain- Primary Pain in soft tissues of limb Neoplasm of uncertain behavior of skin [facility] Healthcare[facility] Discharge instructions No data available for this section [facility] note No data available for this section [facility] Summary Purpose Family History No Family History Records Found Relationship Condition Age at Onset Recorded Date/T elana father Diabetes mellitus Unknown Malignant neoplasmUnknownDeceasedUnknownMalignant neoplasm of esophagusUnknown motherDiabetes mellitusUnknownHeart diseaseUnknownHypertensionUnknownsister Malignant neoplasmUnknown Advance Directives No Advanced Directives Records Found Advance Directive Response Recorded Date/ Time Advance Directives No November 23 9:35am Advance Directive Response Recorded Date/ Time Advance Directives No November 23 8:35am Hospital Course Note MR#: [id number] I [facility] Pt. Name: Apryl Downs Admitted: [...] is a 38-year-old female, who presented to [facility] with complaints of left-sided weakness and facial droop. The patient states she had driven herself to the emergency department. The patient states that she was at work when she st (more content not included)... Note HNO ID: [id number] Author: Anjali Muñoz Service: Gynecology Author Type: Physician Type: Brief Op Note Filed: 10/03/2020 8:14 AM Note Text: BRIEF OPERATIVE / PROCEDURE NOTE LOG ID: [id number] SURGERY/PROCEDURE DATE: 10/03/2020 INCISION/PROCEDURE START TIME: 7:57 AM INCISION CLOSE/PROCEDURE END TIME: 8:07 AM SURGEON(S)/PROCEDURALIST(S) AND SHALLOT CLEANER(S): Surgeon(s) and Role: * Ayah Muñoz - [...] the case. Procedure Findings Note HNO ID: [id number] Author: Anjali Muñoz Service: Gynecology Author Type: Physician Type: Brief Op Note Filed: 10/03/2020 8:14 AM Note Text: BRIEF OPERATIVE / PROCEDURE NOTE LOG ID: [id number] SURGERY/PROCEDURE DATE: 10/03/2020 INCISION/PROCEDURE START TIME: 7:57 AM INCISION CLOSE/PROCEDURE END TIME: 8:07 AM SURGEON(S)/PROCEDURALIST(S) AND SHALLOT CLEANER(S): Surgeon(s) and Role: * Ayah Muñoz - [...] iron deficienc y anemia (D50.8) Referral Organization [facility] emilee Referring Provider First Name Amanda Referring Provider Last Name Khalida Referring Provider Specialty [facility] Referred Organization [facility] Referred Address [address], [place],[address] Referred Provider Specialty Hematology Referral Priority Routine Chief Complaint and Reason for Visit Chief Complaint Amb Documentation follow upReason for VisitIron deficiency anemia Left foot pain Type 2 diabetes mellitus with hyperglycemia Chief Complaint follow up Discuss DiabetesReason for VisitIron deficiency anemia Left foot pain Type 2 diabetes mellitus with hyperglycemia Type 2 diabetes mellitus with hyperglycemia Chief Complaint Admit Date Amb Documentation July 06, 2024 1 0:25am migraines October 04, 2024 1 1:26am Additional Source Comments INFORMATION SOURCE (unrecogn ized section and content) DATE CREATED AUTHOR 04/28/2019 [facility] DATE CREATED AUTHOR AUTHOR'S ORGANIZ ATION 10/07/2020 [facility] DATE CREATED AUTHOR AUTHOR'S ORGANIZ ATION 10/07/2020 [facility] DATE CREATED AUTHOR AUTHOR'S ORGANIZ ATION 10/03/2021 [facility] DATE CREATED AUTHOR AUTHOR'S ORGANIZ ATION 12/15/2022 [facility] DATE CREATED AUTHOR AUTHOR'S ORGANIZ ATION 03/21/2024 [facility] DATE CREATED AUTHOR AUTHOR'S ORGANIZ ATION 03/28/2025 [facility] DATE CREATED AUTHOR AUTHOR'S ORGANIZ ATION 04/02/2025 [facility] DATE CREATED AUTHOR AUTHOR'S ORGANIZ ATION 04/25/2025 [facility] DATE CREATED AUTHOR AUTHOR'S ORGANIZ ATION 06/05/2025 [facility] EPIC (unrecognized sect ion and content) No Status Records FoundNo Status Records FoundNo Status Records FoundNo Status Records Found Care Team (unrecognized sect ion and content) Team Status: Active Member Role Status Dates Amanda Villafana MD Primary Care Provider Active Team Status: Active Member Role Status Dates Amanda Villafana MD Primary Care Provider Active Start: July 06, 2024 Rashawn Huber ProviderActiveStart: July 06, 2024 Team Status: Inactive Member [...] Care Provider Active Start: March 14, 2024 Vibha Tucker ProviderActiveStart: March 14, 2024 Team MemberRelationshipSpecialtyStart DateEnd Date Amanda Villafana MD [address] [place] [address] PCP - GeneralFamily Medicine09/10/24 Samanta Cota NP [address] [place] [phone] Nurse PractitionerFamily Medicine03/28/24Team MemberRelationshipSpecialtyStart DateEnd Date Amanda Villafana MD [address] [place] [address] PCP - GeneralFamily Medicine09/10/24 Samanta Cota NP [address] [place] [address] Nurse PractitionerFamily Medicine03/28/24Team MemberRelationshipSpecialtyStart DateEnd Date Amanda Villafana MD [address] [facility] [place] [address] PCP - GeneralFamily Medicine09/10/24 Samanta Cota NP [address] [place] [address] Nurse [facility]erMon[facility] Clinicsly Medicine03/28/24Team MemberRelationshipSpecialtyStart DateEnd Date Amanda Villafana MD [address] [facility] [place] [address] PCP - GeneralFamily Medicine09/10/24 Samanta Cota NP [address] [place] [address] Nurse PractitionerFamily Medicine03/28/24Team MemberRelationshipSpecialtyStart DateEnd Date Amanda Villafana MD [address] [facility] [place] [address] PCP - GeneralFamily Medicine09/10/24 Samanta Cota NP [address] [place] [address] Nurse PractitionerFamily Medicine03/28/24Team MemberRelationshipSpecialtyStart DateEnd Date Amanda Villafana MD [address] [facility] [place] [address] PCP - GeneralFamily Medicine09/10/24 Samanta Cota NP [address] [place] [address] [facility]03/28/24Team MemberRelationshipSpecialtyStart DateEnd Date Amanda Villafana MD [address] [facility] [place] [address] PCP - GeneralFamily Medicine09/10/24 Samanta Cota NP [address] [place] [address] Nurse [facility]Mon[facility]03/28/24Team MemberRelationshipSpecialtyStart DateEnd Date Amanda Villafana MD [address] [place] [address] PCP - GeneralFamily Medicine09/10/24 Samanta Cota NP [address] [place] [address] Nurse Practitionermily Medicine03/28/24Team MemberRelationshipSpecialtyStart DateEnd Date Amanda Villafana MD [address] [place] [address] PCP - GeneralFamily Medicine09/10/24 Samanta Cota NP [address] [place] [address] [facility]03/28/24Team MemberRelationshipSpecialtyStart DateEnd Date Amanda Villafana MD [address] [place] [address] [facility] - [facility]09/10/24 Samanta Cota NP [address] [place] [address] Nurse [facility]erAd[facility]03/28/24Team MemberRelationshipSpecialtyStart DateEnd Date Amanda Villafana MD [address] [facility] [place] [address] PCP - [facility]09/10/24 Samanta Cota NP [address] [place] [address] Nurse Pract[facility]Ad[facility]03/28/24Team MemberRelationshipSpecialtyStart DateEnd Date Amanda Villafana MD [address] [facility] [place] [address] PCP - GeneralAd[facility]09/10/24 Samanta Cota NP [address] [place] [address] Nurse Pract[facility]erAd[facility]03/28/24Team MemberRelationshipSpecialtyStart DateEnd Date Amanda Villafana MD [address] [facility] [place] [phone] PCP - GeneralFamily Medicine09/10/24 Samanta Cota NP [address] [place] [address] Nurse Practitionermily Medicine03/28/24Team MemberRelationshipSpecialtyStart DateEnd Date Amanda Villafana MD [address] [facility] [place] [address] PCP - GeneralFamily Medicine09/10/24 Samanta Cota NP [address] [place] [address] Nurse Practitionermily Medicine03/28/24Team MemberRelationshipSpecialtyStart DateEnd Date Amanda Villafana MD [address] [facility] [place] [address] PCP - GeneralFamily Medicine09/10/24 Samanta Cota NP [address] [place] [address] Nurse Practitionermily Medicine03/28/24Team MemberRelationshipSpecialtyStart DateEnd Date Amanda Villafana MD [address] [facility] [place] [address] PCP - GeneralFamily Medicine09/10/24 Samanta Cota NP [address] [place] [address] Nurse Pract[facility]erAd[facility]03/28/24Team MemberRelationshipSpecialtyStart DateEnd Date Amanda Villafana MD [address] [place] [address] [facility] - [facility]Mon[facility]icsly [facility]09/10/24 Samanta Cota NP Nurse PractitionerAd[facility]03/28/24Team MemberRelationshipSpecialtyStart DateEnd Date Amanda Villafana MD [address] [place] [address] PCP - GeneralAd[facility]09/10/24 Samanta Cota NP Nurse PractitionerAdventhealth Murray03/28/24 REASON FOR VISIT (unrecogniz ed section and content) ReasonCommentsFoot PainTop of left foot painReasonCommentsFoot/ankle Post-opWK 6 post opReasonCommentsFoot/ankle Post-opWK 2 post opReasonCommentsFoot/ankle Post-opWK 1 post opReasonCommentsConsent Or InstructionsSurgery consult for LT footReasonCommentsPlantar FasciitisF/U LT foot plantar fasciitis inj [id number] CommentsPlantar FasciitisF/U LT foot plantar fasciitis inj [id number] PainLT heel [id number] month Follow up Goals (unrecognized section and [...] BE BASED ON THE PRIMARY CLINICAL RECORDS. [facility] provides no warranty or guarantee of the accuracy or completeness of information in this document.
== END 2025-07-01 15:46 | disposition home or self-care (01) ==
LOC: LAB 15:49
PROVIDERS: PCP Family Medicine; Visit Provider Podiatrist Foot & Ankle Surgery
DX: Z01.810 Encounter for preprocedural cardiovascular examination (principal)
CPT/HCPCS: 36415; 80048; 85025